=== PATIENT | male | born 1975 | race Caucasian/White ===

== ENCOUNTER 2024-03-24 20:38 | Emergency (ER) | payer BC, SELFPAY ==
[2024-03-24 20:44] VITALS: BP 180/93; PULSE 77; TEMP 36.9; O2SAT 97; BMI 48.8
--- NOTE | 2024-03-24 21:02 | ED_ITS ---
HPI - Chest Pain General Chief Complaint: Chest Pain Stated Complaint: CHEST PAIN Time Seen by Provider: 03/24/24 20:53 History of Present Illness HPI narrative: This 48-year-old male with a history of hypertension who is obese but does not have a personal history of cardiac disease presents for evaluation of 2 days of intermittent squeezing sensation in the left side of his chest. He initially thought it was gas but has taken several anti-gas preparations without significant improvement. He denies any radiation into his arm, back or jaw. He is not short of breath. He has not become dizzy or diaphoretic. He has no abdominal pain or back pain. He has no lower extremity pain or swelling. He does use a CPAP machine. He takes a daily baby aspirin. He has never had a cardiac workup or stress test. Related Data Home Medications ?Medication ?Instructions ?Recorded ?Confirmed lisinopril 20 tab 03/24/24 mg-hydrochlorothiazide 12.5 mg tablet nabumetone 750 mg tablet mg 03/24/24 Allergies Allergy/AdvReac Type Severity Reaction Status Date / Time shellfish derived Allergy Severe Anaphylaxis Verified 03/24/24 20:48 Penicillins AdvReac Mild Unknown Verified 03/24/24 20:48 Review of Systems ROS Status of ROS 10 or more systems reviewed and unremark able except as noted in history and below Exam Narrative Exam Narrative: Vital signs and Nursing Notes reviewed: Patient is afebrile with a normal pulse, blood pressure is elevated at 180/93, he is not hypoxic with pulse ox of 97% on room air General: Awake, alert, oriented, no acute distress, lying comfortably on the stretcher HEENT: Normocephalic atraumatic, mucous membranes are moist and pink, eyes are clear, normal conjunctiva, vision is grossly intact Neck: Supple, no JVD Chest: Lungs are clear to auscultation with good air entry, there is no wheezing rhonchi or rales appreciated no accessory muscle use, patient is speaking in complete sentences-no chest wall tenderness to palpation CVS: Regular rate and rhythm S1-S2, no murmurs rubs or gallops, pulses are brisk and equal bilaterally ABD: Soft, nondistended, nontender, no rebound guarding or rigidity, bowel sounds are normal, no pulsatile masses appreciated Extremities: Moving all extremities, no lower extremity tenderness or swelling noted, negative Homans' sign, pulses are brisk and equal bilaterally Skin: Normal in appearance without rash,pallor, petechiae or purpura Neuro: No focal deficits Constitutional Vital Signs, click to edit/add: Last Vital Signs Temp 98.4 F 03/24/24 20:44 Pulse 65 03/24/24 23:00 Resp 15 03/24/24 23:00 BP 131/81 03/24/24 23:00 Pulse Ox 96 03/24/24 23:00 O2 Del Method Room Air 03/24/24 20:44 Course Vital Signs Vital signs: Vital Signs Temperature 98.4 F 03/24/24 20:44 Pulse Rate 77 03/24/24 20:44 Respiratory Rate 18 03/24/24 20:44 Blood Pressure 180/93 H 03/24/24 20:44 Pulse Oximetry 97 03/24/24 20:44 Oxygen Delivery Method Room Air 03/24/24 20:44 Temperature 98.4 F 03/24/24 20:44 Pulse Rate 65 03/24/24 23:00 Respiratory Rate 15 03/24/24 23:00 Blood Pressure 131/81 03/24/24 23:00 Pulse Oximetry 96 03/24/24 23:00 Oxygen Delivery Method Room Air 03/24/24 20:44 MDM - Chest Pain MDM Narrative Medical decision making narrative: This 48-year-old male with a history of hypertension and sleep apnea who is also obese presents for evaluation of left-sided chest pain that has been present for the past several days. He describes it as a squeezing pain. It does not radiate. Is not associated with shortness of breath dizziness diaphoresis or any nausea or vomiting. His EKG done upon arrival was a normal sinus rhythm at 70 bpm. An IV was placed and he was given 243 mg of baby aspirin as he hide takes a daily baby aspirin every day. He was also given topical nitroglycerin. Lopressor was initially ordered but his blood pressure came down into the 150s and it was held. Cardiac work including CBC with differential comprehensive metabolic profile, troponin and D-dimer were ordered. He has a normal white count and hemoglobin. Electrolytes are normal with the mild elevation in his creatinine at 1.32. Troponin and delta troponin are both normal. D-dimer was elevated and CT angio of the chest was ordered to rule out pulmonary embolism. CTA of the chest is negative for acute findings but does show a fatty liver. The results of the scan were discussed with the patient and his . He feels comfortable being discharged home. I did offer to admit him for observation if he would feel better being admitted and getting a more thorough cardiac workup but he request to be discharged home and will follow-up with outpatient cardiology. He states that he monitors his health closely after having testicular cancer twice. He did not mention this previously but has follow-up in a month with his oncologist for a PET scan and further evaluation and treatment. This may be partially why he had an elevated D-dimer. He is not having any cancer related concerns at this time. Medical Records Data Medical records narrative: [place] [address] CT Scan Report Signed Patient: WANDA BOOKER MR#: [id number] : 1975 Acct:[id number] Age/Sex: 48 / M ADM Date: 03/24/24 Loc: ER Attending Dr: Ordering Physician: Phylicia Lima Date of Service: 03/24/24 Procedure(s): CT angio chest Accession Number(s): [id number] cc: Dimitry CRABTREE ~ [facility] [place] [address] Patient Name: WANDA BOOKER MRN: [id number] date: 1975 Sex: M Assigned Patient Location: ER Current Patient Location: ER Accession/Order Number: [id number] Exam Date: 03/24/2024 22:07 Report Date: 03/24/2024 23:18 At the request of: PHYLICIA LIMA Procedure: CT angio chest CT angio chest 03/24/2024 9:07 PM CDT: History: Left sided CP, + d dimer Chest pain. Possible pulmonary embolism. Comparison: None. Technique: IV Contrast enhanced CTA imaging of the chest. Sagittal and coronal MIP reformatted images are provided. This CT exam was performed using one or more of the following dose reduction techniques: Automated exposure control, adjustment of the mA and/or KV according to patient size, or use of iterative reconstruction technique. Findings: The central airway is midline and patent. There is bilateral dependent and bibasilar atelectasis. There is no pleural effusion or pneumothorax. The heart size is normal. There is no pericardial effusion. The pulmonary arteries are patent and normal in caliber. There is no pulmonary embolism. The thoracic aorta is patent and normal in caliber. There is diffuse hepatic steatosis. The bony thorax is intact without acute abnormality. There is degenerative disc disease of the thoracic spine. CT/CT angio chest Impression: 1. No acute cardiopulmonary process. No pulmonary embolism. 2. Hepatic steatosis. Electronically authenticated by: FLOR HARDY Date: 03/24/2024 23:18 Lab Data Labs: Lab Results 03/24/24 03/24/24 Range/Units 20:50 22:45 WBC 7.7 (4.0-11.0) 10^3/uL RBC 4.80 (4.70-6.10) 10^6/uL Hgb 14.4 (14.0-18.0) g/dL Hct 41.5 L (42.0-54.0) % MCV 86.5 (80.0-94.0) fL MCH 30.0 (25.9-34.0) pg MCHC 34.7 (29.9-35.2) g/dL RDW 12.5 (11.0-15.0) % Plt Count 229 (150-450) 10^3/uL MPV 10.0 (9.5-13.5) fL Neut % (Auto) 75.2 H (43.0-75.0) % Lymph % (Auto) 14.5 L (20.5-60.0) % Williamson % (Auto) 7.3 (1.7-12.0) % Eos % (Auto) 2.1 (0.9-7.0) % Baso % (Auto) 0.5 (0.2-2.0) % Neut # (Auto) 5.8 (1.4-6.5) 10^3/uL Lymph # (Auto) 1.1 L (1.2-3.8) 10^3/uL Williamson # (Auto) 0.6 (0.3-0.8) 10^3/uL Eos # (Auto) 0.2 (0.0-0.7) 10^3/uL Baso # (Auto) 0.0 (0.0-0.1) 10^3/uL Abs Immat Gran (auto) 0.03 (0.00-0.03) 10^3/uL Imm/Tot Granulo (auto) 0.4 (0.0-0.5) % D-Dimer 1.87 H* (<=0.59) mg/L FEU Sodium 136 (136-145) mmol/L Potassium 3.5 (3.5-5.1) mmol/L Chloride 98 (98-107) mmol/L Carbon Dioxide 24.9 (21.0-32.0) mmol/L Anion Gap 16.6 BUN 19.0 H (7.0-18.0) mg/dL Creatinine 1.32 H (0.70-1.30) mg/dL Est GFR ( Amer) >60 (>=60 mL/min/1.73m^2) Est GFR (Non-Af Amer) 58 L (>=60 mL/min/1.73m^2) BUN/Creatinine Ratio 14.4 Glucose 122 H (74-106) mg/dL Calcium 9.5 (8.5-10.1) mg/dL Total Bilirubin 0.4 (0.2-1.0) mg/dL AST 16 (15-37) U/L ALT 28 (16-63) U/L Alkaline Phosphatase 72 (46-116) U/L Troponin I High Sens 4.1 4.7 (4.0-76.1) pg/mL NT-Pro-B Natriuret Pep 113.0 (<=900.0) pg/mL Total Protein 7.4 (6.4-8.2) g/dL Albumin 3.7 (3.4-5.0) g/dL Globulin 3.7 g/dL Albumin/Globulin Ratio 1.0 ECG Data Attestation: I personally reviewed and interpreted this ECG as follows: (Sinus rhythm at 70 bpm, normal axis, nonspecific ST changes, no acute ST segment e levation or T wave inversion) Discharge Plan Discharge Chief Complaint: Chest Pain Clinical Impression: Non-cardiac chest pain, Elevated blood pressure reading Patient Disposition: Home, Self-Care Time of Disposition Decision: 23:31 Condition: Good Prescriptions / Home Meds: No Action nabumetone 750 mg tablet lisinopril-hydrochlorothiazide 20-12.5 mg tablet Print Language: Egyptian Instructions: Noncardiac Chest Pain (ED) Referrals: Dimitry CRABTREE [Primary Care Provider] - 1 week Mohit Siegel MD [Physician] - 1 week
[2024-03-24 21:17] LABS: Basophils Percent Auto 0.5 % (0.2-2.0); Eosinophils Absolute Auto 0.2 10^3/uL (0.0-0.7); Eosinophils Percent Auto 2.1 % (0.9-7.0); Hematocrit 41.5 % (42.0-54.0); Hemoglobin 14.4 g/dL (14.0-18.0); Immature Granulocytes Abs Auto 0.03 10^3/uL (0.00-0.03); Immature Granulocytes Pct Auto 0.4 % (0.0-0.5); Lymphocytes Absolute Auto 1.1 10^3/uL (1.2-3.8); Lymphocytes Percent Auto 14.5 % (20.5-60.0); Mean Corpuscular HGB Conc 34.7 g/dL (29.9-35.2); Mean Corpuscular Volume 86.5 fL (80.0-94.0); Monocytes Absolute Auto 0.6 10^3/uL (0.3-0.8); Monocytes Percent Auto 7.3 % (1.7-12.0); Neutrophils Absolute Auto 5.8 10^3/uL (1.4-6.5); Neutrophils Percent Auto 75.2 % (43.0-75.0); Platelet Count 229 10^3/uL (150-450); Red Cell Distribution Width 12.5 % (11.0-15.0); White Blood Count 7.7 10^3/uL (4.0-11.0)
[2024-03-24] MEDS: NITROGLYCERIN 2% 1 GRAM PACKET 1 GM TD (21:20)
[2024-03-24] MEDS: ASPIRIN 81 MG TAB.CHEW 243 MG PO (21:20)
[2024-03-24 21:30] LABS: Alanine Aminotransferase 28 U/L (16-63); Albumin Level 3.7 g/dL (3.4-5.0); Alkaline Phosphatase 72 U/L (46-116); Anion Gap 16.6; Aspartate Amino Transferase 16 U/L (15-37); BUN Creatinine Ratio 14.4; Bilirubin Total 0.4 mg/dL (0.2-1.0); Calcium 9.5 mg/dL (8.5-10.1); Carbon Dioxide 24.9 mmol/L (21.0-32.0); Chloride 98 mmol/L (98-107); Estimated GFR (African America >60 (>=60 mL/min/1.73m^2); Estimated GFR (Non-African Ame 58 (>=60 mL/min/1.73m^2); Globulin 3.7 g/dL; Glucose 122 mg/dL (74-106); Potassium 3.5 mmol/L (3.5-5.1); Sodium 136 mmol/L (136-145); Total Protein 7.4 g/dL (6.4-8.2)
[2024-03-24 21:36] LABS: Troponin I High Sensitivity 4.1 pg/mL (4.0-76.1)
[2024-03-24 21:37] LABS: D Dimer 1.87 mg/L FEU (<=0.59)
--- NOTE | 2024-03-24 21:45 | CT_ITS ---
The [address] [address] Patient Name: WANDA BOOKER MRN: [id number] date: 1975 Sex: M Assigned Patient Location: ER Current Patient Location: Accession/Order Number: [id number] Exam Date: 03/24/2024 22:07 Report Date: 03/24/2024 23:18 At the request of: PINEDA NAPOLES Procedure: CT angio chest CT angio chest 03/24/2024 9:07 PM CDT: History: Left sided CP, + d dimer Chest pain. Possible pulmonary embolism. Comparison: None. Technique: IV Contrast enhanced CTA imaging of the chest. Sagittal and coronal MIP reformatted images are provided. This CT exam was performed using one or more of the following dose reduction techniques: Automated exposure control, adjustment of the mA and/or KV according to patient size, or use of iterative reconstruction technique. Findings: The central airway is midline and patent. There is bilateral dependent and bibasilar atelectasis. There is no pleural effusion or pneumothorax. The heart size is normal. There is no pericardial effusion. The pulmonary arteries are patent and normal in caliber. There is no pulmonary embolism. The thoracic aorta is patent and normal in caliber. There is diffuse hepatic steatosis. The bony thorax is intact without acute abnormality. There is degenerative disc disease of the thoracic spine. CT/CT angio chest Impression: 1. No acute cardiopulmonary process. No pulmonary embolism. 2. Hepatic steatosis. Electronically authenticated by: FLOR HARDY Date: 03/24/2024 23:18
[2024-03-24 21:53] VITALS: BP 148/94; PULSE 70; O2SAT 97
[2024-03-24 22:19] VITALS: BP 160/99; PULSE 69; O2SAT 96
[2024-03-24 23:00] VITALS: BP 131/81; PULSE 65; O2SAT 96
[2024-03-24 23:08] LABS: Troponin I High Sensitivity 4.7 pg/mL (4.0-76.1)
--- NOTE | 2024-03-24 23:30 | ECG_ITS ---
The [facility] Test Date: 2024-03-24 Pat Name: WANDA BOOKER Department: Room: - Gender: Male [employer]: : 1975 Requested By: [id number] Order Number: [id number] Reading MD: TOMASZ YE Measurements Intervals [place] Rate: 71 P: 35 UT: 140 QRS: 46 QRSD: 100 T: 21 QT: 406 QTc: 429 Interpretive Statements 1100 Sinus rhythm 9150 abnormal ECG Electronically Signed On 03-25-2024 6:47:39 EDT by TOMASZ YE
[2024-03-24 23:37] VITALS: BP 129/88; PULSE 63; O2SAT 95
== END 2024-03-24 23:44 | disposition home or self-care (01) ==
PROVIDERS: Emergency Provider Emergency Medicine; PCP Family Medicine
DX: R07.89 Other chest pain (principal); I10 Essential (primary) hypertension; E66.9 Obesity, unspecified; Z79.82 Long term (current) use of aspirin
CPT/HCPCS: 36415; 71275; 80053; 83880; 84484; 85025; 85378; 93005; 99285; Q9967

== ENCOUNTER 2024-05-12 00:15 | Emergency (ER) | payer BC, SELFPAY ==
[2024-05-12 00:22] VITALS: BP 164/96; PULSE 74; TEMP 36.7; O2SAT 94; BMI 48.8
--- OUTSIDE RECORDS SUMMARY | 2024-05-12 00:34 | XMS_ITS | CCD ---
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 [employer] Handicapped Name Role Phone DEBBIE, DR CORNEJO Admitting Unavailable DEBBIE, DR CORNEJO Attending Unavailable LAST, DR Dimitry RAY Referring Unavailable LAST, DR Dimitry RAY Primary Care Unavailable DEBBIE, DR CORNEJO Consulting Unavailable LAKESHIA, DR KRYS Orta Consulting Unavailable DEBBIE, DR CORNEJO Admitting Unavailable DEBBIE, DR CORNEJO Attending Unavailable KASHERRON, DR Dimitry RAY Primary Care Unavailable DEBBIE, DR CORNEJO Consulting Unavailable VIVI PARKS Consulting Unavailable MCCMICHAEL JULIAN Consulting Unavailable LAST, DR Dimitry RAY Primary Care Unavailable KWASI LARA Admitting Unavailable KWASI LARA Attending Unavailable EVELYN CUEVAS Consulting Unavailable KWASI LARA Consulting Unavailable Ashli Ni Jr. Primary Care Provider Debbie DELUCA, Chantal R Unavailable Dimitry NI Primary Care Physician Pravin Cantu Unavailable DO Caity Ni Primary Care Provider DO Caity Ni Referring Provider [phone] MD Krys Allen Attending Provider [phone] Ashli Ni Jr. Primary Care Provider Chantal Lewis MD R Unavailable DO Caity Ni Primary Care Provider DO Caity Ni Referring Provider [phone] MD Krys Allen Attending Provider Krys Allen Unavailable Ashli Ni Jr. Primary Care Provider Chantal Lewis MD R Unavailable Last Wan DO, George Robert Primary Care Provi jarod DO Caity Ni Cj Primary Care Provider MD Krys Allen Attending Provider [phone] Cathi Storey Unavailable Unavailable Caity Ni Primary Care Unavailable Krys Allen Attending Unavailable Krys Allen Admitting Unavailable Tjsherron Wan, Ashli [facility] jar[facility] Chantal Lewis MD Unavailable YEHUDA HOROWITZ Attending Unavailable ASHLI NI Attending Unavailable Ashli Ni DO Primary Care Provider Chantal LEWIS Attending Unavailable Chantal LEWIS Attending Unavailable [facility] Care Unavail able Dimitry JASSO Referring Unavailable [facility] JORDAN PETERS Referring Unavailable LAST [facility] Care Unavail able Dimitry JASSO Attending Unavailable Dimitry JASSO Referring Unavailable [facility] Care Unavail able LATS , [facility] Care Unavail able Dimitry JASSO Referring Unavailable JORDAN PETERS Referring Unavailable [facility] Care Unavail able JORDAN PETERS Referring Unavailable [facility] Care Unavail able JORDAN PETERS Attending Unavailable LAST [facility] Care Unavail able SELF Referring Unavailable JORDAN PETERS Referring Unavailable LAST [facility] Care Unavail able LAST [facility] Care Unavail able Dimitry JASSO Referring Unavailable [facility] Care Unavail able ROSET[place] GAN Referring Unavailable [facility] Care Unavail able LAST [facility] Care Unavail able ARIES SANCHEZ Referring Unavailable [facility] Care Unavail able LAST [facility] Care Unavail able Dimitry JASSO Attending Unavailable JORDAN PETERS Attending Unavailable [place] GAN Referring Unavailable [facility] Care Unavail able JORDAN PETERS Referring Unavailable [facility] Care Unavail able [facility] Care Unavail able Dimitry JASSO Referring Unavailable Dimitry JASSO Attending Unavailable KAAN , ASHLI RAY Primary Care Unavail able JORDAN PETERS Attending Unavailable JORDAN PETERS Referring Unavailable [facility], ASHLI RAY Primary Care Unavail able KAAN , ASHLI RAY Primary Care Unavail able ENGELERDimitry Attending Unavailable KAAN , ASHLI RAY Primary Care Unavail able ENGELER, G THIERNO Referring Unavailable KAAN , ASHLI RAY Primary Care Unavail able ENGELERDimitry Attending Unavailable KAAN , ASHLI RAY Primary Care Unavail able ENGELER G THIERNO Attending Unavailable ENGELER, G THIERNO Referring Unavailable KAAN , ASHLI RAY Primary Care Unavail able ENGELER, G THIERNO Referring Unavailable KAAN , ASHIL RAY Primary Care Unavail able ENGELER, G THIERNO Referring Unavailable KAAN , ASHLI RAY [facility] Care Unavail able ENGELER, G THIERNO Referring Unavailable TJAN , ASHLI RAY [facility] Care Unavail able ENGELER, G THIERNO Referring [facility]available [facility] ASHLI RAY Primary Care Unavail able KAAN , ASHLI RAY Primary Care Unavail able KAVANIAAN , ASHLI RAY [facility] Care Unavail able ENGELER, G THIERNO Referring Unavailable KAAN , ASHLI RAY [facility] Care Unavail able ENGELER, G THIERNO Referring Unavailable KAAN , ASHLI RAY [facility] Care Unavail able ASHARDimitry Attending Unavailable ENGELER G THIERNO Attending Unavailable ENGELER, G THIERNO Referring Unavailable TJAN , ASHLI RAY [facility] Care Unavail able ENGELER G THIERNO Attending Unavailable KAAN , ASHLI RAY [facility] Care Unavail able ENGELER G THIERNO Attending Unavailable ENGELER, G THIERNO Referring Unavailable KAAN [facility] ASHLI RAY Primary Care Unavail able Allergies Allergy Classification Reported Allergen(s) Allergy Type Date of Onset Reaction(s) Facility (1 source) Penicillin Drug Allergy [facility] (3 sources) Shellfish; Translations: [shellfish] Drug allergy (disorder) Unknown (qualifier value) [facility] (2 sources) Penicillins; Translations: [PENICILLINS] Drug Allergy 2 Rash [facility] (20 sources) Shellfish; Translations: [shellfish] Drug Allergy 2 Other: See Comments, Unknown (qualifier value) [facility] (20 sources) Penicillins Drug Allergy 2 Rash [facility] (4 sources) Shellfish; Translations: [shellfish derived] Allergy to substance 1 Swelling of Lip/Tongue/Thro at [facility] (2 sources) Amoxicillin Drug Allergy 3 Rash [facility] Healthcare Work Phone: (2 sources) Shellfish Allergy to substance 2 Unknown [facility] Healthcare (2 sources) Shellfish-Deriv ed Products Drug Allergy 3 Unknown [facility] Healthcare Medications Current Medications Medication Drug Class(es) Dates Sig (Normalized) Sig (Original) 24 hr alfuzosin hydrochloride 10 mg extended release oral tablet (1 source) alpha-Adrenergic Gadiel Start: 03-23-2024 take 1 tablet by mouth once daily alfuzosin 10 mg ER Tab 10 mg = 1 tab(s), Oral, Daily, # 30 tab(s), Refills(s) 11, Pharmacy: [facility] #[id number], 180, cm, 03/23/24 10:12:00 EDT, Height/Length Dosing, 157, kg, 03/23/24 10:12:00 EDT, Weight Dosing Start Date: 03/23/24 Status: Ordered aspirin 81 mg oral tablet (6 sources) Platelet Aggregation Inhibitor, Nonsteroidal Anti-inflammatory Drug take 1 capsule by mouth in the morning aspirin (Vazalore) 81 MG capsule Take 81 mg by mouth in the morning. Active Cranberry preparation (2 sources) Non-Standardized Food Allergenic Extract, Non-Standardized Plant Allergenic Extract Start: 08-09-2021 cranberry oral capsule See Instructions Start Date: 08/09/21 Status: Ordered hydroCHLOROthiazide 12.5 mg / lisinopril 20 mg oral tablet (20 sources) Thiazide Diuretic, Angiotensin Converting Enzyme Inhibitor Start: 03-23-2024 take 1 tablet by mouth once daily hydrochlorothiazi de-lisinopril 12.5 mg-20 mg Tab 1 tab(s), Oral, Daily Start Date: 03/23/24 Status: Ordered Start: 05-29-2023 take 2 tablets by mouth in the morning lisinopril-hydroCHLOROthiazide 20-12.5 M G tablet Indications: Primary hypertension (CMS/HCC) Take 2 tablets by mouth in the morning. 180 tablet 3 05/29/2023 Active Start: 05-11-2023 take 2 tablets by mouth once lisinopril-hydroCHLOROthiazide (ZESTORET IC) 20-12.5 mg per tablet Take 2 tablets by mouth every afternoon. 05/11/2023 Active Comment on above: Take 2 tablets by mo [facility] every afternoon. Multi Vitamin+ (2 sources) Start: 08-02-2021 Multi Vitamin+ Refill(s) 0 Start Date: 08/02/21 Status: Ordered multivit-min/ferrous fumarate (MULTI VITAMIN ORAL) (20 sources) Start: 08-02-2021 multivit-min/ferrous fumarate (MULTI VITAMIN ORAL) Refill(s) 0 08/02/2021 Active Start: 08-02-2021 multivit-min/f errous fumarate (MULTI VITAMIN ORAL) Refill(s) 0 0 08/02/2021 Active Comment on above: Refill(s) 0 Multivitamin preparation (2 sources) take 1 tablet by mouth once daily Multivitamin - 1 tablet Orally Once a day Active nabumetone 750 mg oral tablet (6 sources) Nonsteroidal Anti-inflammatory Drug Start: 05-04-20 take 1 tablet by mouth at mealtime nabumetone (Relafen) 750 MG tablet Indications: Acute right ankle pain TAKE 1 TABLET(750 MG) BY MOUTH IN THE MORNING AND IN THE EVENING WITH MEALS 60 tablet 05/04/2024 Active Start: 03-23-2024 take 2 tablets by [facility] once daily nabumetone 750 mg Tab 1,500 mg = 2 tab(s), Oral, Daily Start Date: 03/23/24 Status: Ordered take 500 mg by mouth twice daily NABUMETONE ORAL Take 500 mg by mouth two times a day. Active omeprazole 20 mg delayed release oral tablet (20 sources) Proton Pump Inhibitor Start: 08-02-2021 Omeprazo le 20 mg TbEC Take by mouth. 08/02/2021 Active Start: 08-02-2021 Prilosec Oral, Daily, Refills(s) 0 Start Date: 08/02/21 Status: Ordered Start: 03-19-2021 Omeprazole Act cristóbal MG PO March 19, 2021 9:52am Start: 03-19-2021 Omeprazole Act cristóbal MG PO March 18, 2021 11:00pm Start: 03-19-2021 Omeprazole Act cristóbal MG PO March 19, 2021 12:00am Start: 06-08-2018 End: 05-27-2019 take 20 mg by mouth once daily Omeprazole Discontinued 20 MG PO Daily June 08, 2018 12:32pm May 27, 2019 4:36am Comment on above: Take by mouth. ondansetron 8 mg oral tablet (20 sources) Serotonin-3 Receptor Antagonist Start: take 1 tablet by mouth every eight hours as needed ondansetron (ZOFRAN) 8 mg tablet Take 1 tablet by mouth every 8 hours as needed for nausea/vomiting. 30 tablet 2 07/25/2023 Active Start: 07-08-2023 End: 07-25-2023 take 1 tablet by mouth every eight hours as needed ondansetron orally disintegrating (ZOFRAN ODT) 8 mg disintegrating tablet Take 1 tablet by mouth every 8 hours as needed for nausea/vomiting. 20 tablet 1 07/08/2023 07/25/2023 Discontinued Start: 07-05-2023 End: 07-25-2023 take 1 tablet by mouth once daily as needed for nausea ondansetron (ZOFRAN) 8 mg tablet Take 1 tablet by mouth once daily as needed for nausea/vomiting. 20 tablet 1 07/05/2023 07/25/2023 Discontinued Start: 07-05-2023 End: 07-05-2023 take 1 tablet by mouth every eight hours as needed ondansetron 8 mg tab(s) (ZOFRAN) Comment on above: Take 1 tablet by kieran th once daily as needed for nausea/vomiting. Take 1 tablet by kieran th every 8 hours as needed for nausea/vomiting. traZODone hydrochloride 50 mg oral tablet (20 sources) Serotonin Reuptake Inhibitor Start: 03-23-2024 traZODone (Desyrel) 50 MG tablet Indications: Insomnia, unspecified type Take 1 tablet (50 mg) by mouth as needed at bedtime for sleep 30 tablet 3 03/23/2024 Active Start: 10-23-2022 End: 03-23-2024 take 1 tablet by mouth every twenty-four hours as needed traZODone (DESYREL) 50 mg tablet Take 50 mg by mouth at bedtime as needed. 10/23/2022 Active Comment on above: Take 50 mg by mouth at bedtime as needed. Zinc (20 sources) Start: 08-02-2021 Zinc 50 mg tab Take by mouth. 08/02/2021 Active Start: 08-02-2021 Zinc 50 mg tab Take by mouth. 0 08/02/2021 Active Start: 08-02-2021 take 1 mg by mouth once daily Zinc mg, Oral, Daily, Refills(s) 0 Start Date: 08/02/21 Status: Ordered Comment on above: Take by mouth. Completed/Discontinued Medications Medication Drug Class(es) Dates Sig (Normalized) Sig (Original) acetaminophen 325 mg / HYDROcodone bitartrate 5 mg oral tablet (3 sources) Opioid Agonist Start: 06-08-2018 End: 05-27-2019 take 1 tablet by mouth every four to six hours Hydrocodone-Acetamin ophen (Palmer) 5-325 mg tablet Discontinued 1 TAB PO EVERY 4-6 HOURS 10 June 08, 2018 May 27, 2019 3:36am amoxicillin 500 mg oral capsule (3 sources) Penicillin-class Antibacterial Start: 05-27-2019 End: 03-19-2021 take 1 mg by mouth four times daily Amoxicillin Discontinued MG PO Four times daily May 27, 2019 12:00am March 19, 2021 8:51am azithromycin 250 mg oral tablet (3 sources) Macrolide Antimicrobial Start: 05-27-2019 End: 03-19-2021 take 2-5 tablets by mouth once daily Azithromycin (Zithromax Z-Rashi) 250 mg Tablet Discontinued 1 dose pk PO as directed on dose pack May 27, 2019 12:00am March 19, 2021 8:51am take 500 mg today (day 1), then 250 mg for 4 days (days 2-5) cyclobenzaprine hydrochloride 10 mg oral tablet (3 sources) Muscle Relaxant Start: 06-08-2018 End: 05-27-2019 take 10 mg by mouth three times daily Cyclobenzaprine Discontinued 10 MG PO Three times daily June 08, 2018 12:00am May 27, 2019 3:36am diphenhydrAMINE hydrochloride 25 mg oral capsule (3 sources) Histamine-1 Receptor Antagonist Start: 05-27-2019 End: 03-19-2021 take 1 capsule by mouth every four hours Diphenhydramine Hcl (Benadryl) 25 mg Capsule Discontinued 25 MG PO Q4H May 27, 2019 12:00am March 19, 2021 8:51am enteric contrast (will be provided with radiology test) (4 sources) Start: 10-28-2023 End: 10-29-2023 enteric contrast (will be provided with radiology test) Indications: Malignant neoplasm of testicle, unspecified laterality, unspecified whether descended or undescended (HCC) For CT ABD/PEL W IVCON Routine order Administer, As Directed One Time Only, via Oral, Rectal, both Oral and Rectal, Enteric Tube, Stoma or Indwelling Catheter, Enteric Contrast as designated per enteric contrast guidelines 1 Each 0 10/28/2023 10/29/2023 Start: 02-14-2023 End: 02-15-2023 enteric contrast (will be pr ovided with radiology test) For CT CHESTABD/PEL W IVCON Routine order Administer, As Directed One Time Only, via Oral, Rectal, both Oral and Rectal, Enteric Tube, Stoma or Indwelling Catheter, Enteric Contrast as designated per enteric contrast guidelines 1 Each 0 02/14/2023 02/15/2023 Active Start: 07-09-2022 End: 07-10-2022 enteric contrast (will be pr ovided with radiology test) For CT CHESTABD/PEL W IVCON Routine order Administer, As Directed One Time Only, via Oral, Rectal, both Oral and Rectal, Enteric Tube, Stoma or Indwelling Catheter, Enteric Contrast as designated per enteric contrast guidelines 1 Each 0 07/09/2022 07/10/2022 Start: 12-26-2021 End: 12-27-2021 enteric contrast (will be pr ovided with radiology test) For CT CHESTABD/PEL W IVCON Routine order Administer, As Directed One Time Only, via Oral, Rectal, both Oral and Rectal, Enteric Tube, Stoma or Indwelling Catheter, Enteric Contrast as designated per enteric contrast guidelines 1 Each 0 12/26/2021 12/27/2021 Active Comment on above: For CT CHESTABD/PEL W IVCON Routine order Administer, As Directed One Time Only, via Oral, Rectal, both Oral and Rectal, Enteric Tube, Stoma or Indwelling Catheter, Enteric Contrast as designated per enteric contrast guidelines iv contrast (will be provided with radiology test) (5 sources) Start: 10-28-2023 End: 10-29-2023 iv contrast (will be provided with radiology test) Indications: Malignant neoplasm of testicle, unspecified laterality, unspecified whether descended or undescended (HCC) CT Chest W -Inject, intravenously, once for 1 dose.No IV access, insert saline lock prior to the beginning of sedation, infusion, injection of imaging exam. Discontinue saline lock post exam. If Pt. has a central line or IVAD, may access for administration according to line specific nursing protocol. Once exam is complete flush line and de-access according to line specific nursing protocol in the CT contrast administration guidelines link. 1 Each 0 10/28/2023 10/29/2023 Start: 10-28-2023 End: 10-29-2023 iv contrast (will be provide d with radiology test) Indications: Malignant neoplasm of testicle, unspecified laterality, unspecified whether descended or undescended (HCC) CT ABD/PEL -Inject, intravenously, once for 1 dose.No IV access, insert saline lock prior to the beginning of sedation, infusion, injection of imaging exam. Discontinue saline lock post exam. If Pt. has a central line or IVAD, may access for administration according to line specific nursing protocol. Once exam is complete flush line and de-access according to line specific nursing protocol in the CT contrast administration guidelines link. 1 Each 0 10/28/2023 10/29/2023 Start: 02-14-2023 End: 02-15-2023 iv contrast (will be provide d with radiology test) CT Chest ABD/PEL-Inject, intravenously, once for 1 dose.No IV access, insert saline lock prior to the beginning of sedation, infusion, injection of imaging exam. Discontinue saline lock post exam. If Pt. has a central line or IVAD, may access for administration according to line specific nursing protocol. Once exam is complete flush line and de-access according to line specific nursing protocol in the CT contrast administration guidelines link. 1 Each 0 02/14/2023 02/15/2023 Active Start: 07-09-2022 End: 07-10-2022 iv contrast (will be provide d with radiology test) CT Chest ABD/PEL-Inject, intravenously, once for 1 dose.No IV access, insert saline lock prior to the beginning of sedation, infusion, injection of imaging exam. Discontinue saline lock post exam. If Pt. has a central line or IVAD, may access for administration according to line specific nursing protocol. Once exam is complete flush line and de-access according to line specific nursing protocol in the CT contrast administration guidelines link. 1 Each 0 07/09/2022 07/10/2022 Start: 12-26-2021 End: 12-27-2021 iv contrast (will be provide d with radiology test) CT Chest ABD/PEL-Inject, intravenously, once for 1 dose.No IV access, insert saline lock prior to the beginning of sedation, infusion, injection of imaging exam. Discontinue saline lock post exam. If Pt. has a central line or IVAD, may access for administration according to line specific nursing protocol. Once exam is complete flush line and de-access according to line specific nursing protocol in the CT contrast administration guidelines link. 1 Each 0 12/26/2021 12/27/2021 Active Comment on above: CT Chest ABD/PEL-Inj ect, intravenously, once for 1 dose.No IV access, insert saline lock prior to the beginning of sedation, infusion, injection of imaging exam. Discontinue saline lock post exam. If Pt. has a central line or IVAD, may access for administration according to line specific nursing protocol. Once exam is complete flush line and de-access according to line specific nursing protocol in the CT contrast administration guidelines link. lisinopril 20 mg oral tablet (19 sources) Angiotensin Converting Enzyme Inhibitor Start: 08-16-19 End: 05-23-20 take 1 tablet by mouth once daily lisinopril (ZESTRIL, PRINIVIL) 20 mg tablet Take 20 mg by mouth once daily. 08/15/2021 05/23/2023 Discontinued (Changing Therapy/Dosage Form) Start: 06-07-2021 lisinopril Ora l, Daily, Refills(s) 0 Start Date: 06/07/21 Status: Ordered Start: 03-19-2021 Lisinopril Act cristóbal MG TABLET March 18, 2021 11:00pm take 1 tablet by kieran th every twenty-four hours Lisinopril 10 MG 1 tablet Orally Once a day Active Comment on above: Take 20 mg by mouth once daily. predniSONE 10 mg oral tablet (6 sources) Start: 05-27-2019 End: 03-19-2021 take 60 mg by mouth once daily at mealtime Prednisone Discontinued 60 MG PO Daily May 27, 2019 12:00am March 19, 2021 8:51am administer with food or milk Start: 06-08-2018 End: 05-27-2019 take 50 mg by mouth once daily at mealtime Prednisone Discontinued 50 MG PO Daily 10 19June 08, 2018 12:00am May 27, 2019 3:36am administer with food or milk Triamcinolone (2 sources) Corticosteroid Start: 03-21-2021 Kenalog -40 mg Mar, 40 mg Problems Active Problems Problem Classification Problem Date Documented Date Episodic/Chronic Allergic reactions (3 sources) Allergic reaction to drug; Translations: [Allergy, unspecified, initial encounter] 05-27-2019 Episodic Cancer of testis (20 sources) Malignant neoplasm of right testis, unspecified whether descended or undescended; 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] Onset: 08-08-2021 Chronic Esophageal disorders (5 sources) Gastroesophageal reflux disease without esophagitis; Translations: [Gastro-esophageal reflux disease without esophagitis] Onset: 02-28-2023 02-28-2023 Chronic Essential hypertension (12 sources) Essential (primary) hypertension; Translations: [Elevated blood pressure] Onset: 08-08-2021 Chronic Hyperplasia of prostate (7 sources) Benign prostatic hyperplasia without lower urinary tract symptoms; Translations: [Benign prostatic hypertrophy without outflow obstruction] Onset: 08-08-2021 Chronic Nonspecific chest pain (1 source) Chest pain, unspecified; Translations: [CHEST PAIN UNSPECIFIED] Onset: 08-21-2021 Episodic Other aftercare (1 source) Other alf (current) drug therapy; Translations: [[employer] CURRENT DRUG THERAPY] Onset: 08-21-2021 Episodic Other lower respiratory disease (3 sources) Dyspnea, unspecified; Translations: [DYSPNEA UNSPECIFIED] Onset: 08-17-2021 Episodic Other male genital disorders (4 sources) Disorder of male genital organs, unspecified; Translations: [DISORDER MALE GENITAL ORGANS UNS] Onset: 08-03-2021 Episodic Other non-traumatic joint disorders (1 source) Acute ankle pain; Translations: [Pain in right ankle and joints of right foot] 05-04-2024 Episodic Other nutritional; endocrine; and metabolic disorders (1 source) Obesity, unspecified; Translations: [OBESITY UNSPECIFIED] Onset: 08-21-2021 Chronic Other nutritional; endocrine; and metabolic disorders (1 source) Body mass index (BMI) 40.0-44.9, adult; Translations: [BODY MASS INDEX BMI 40.0-44.9 ADULT] Onset: 08-21-2021 Chronic Other nutritional; endocrine; and metabolic disorders (2 sources) Body mass index 40+ - severely obese; Translations: [Body mass index (BMI) 45.0-49.9, adult] Chronic Other nutritional; endocrine; and metabolic disorders (2 sources) Body mass index (BMI) 45.0-49.9, adult Chronic Other screening for suspected conditions (not mental disorders or infectious disease) (1 source) Encounter for screening for malignant neoplasm of prostate; Translations: [Screening for malignant neoplasm done] Onset: 03-23-2024 Episodic Pneumonia (except that caused by tuberculosis or sexually transmitted disease) (1 source) Pneumonia, unspecified organism; Translations: [PNEUMONIA UNSPECIFIED ORGANISM] Onset: 08-21-2021 Episodic Residual codes; unclassified (7 sources) Obstructive sleep apnea syndrome; Translations: [Obstructive sleep apnea (adult) (pediatric)] Onset: 02-28-2023 02-28-2023 Chronic Residual codes; unclassified (2 sources) Idiopathic sleep related non-obstructive alveolar hypoventilation; Translations: [Idiopathic sleep related nonobstructive alveolar hypoventilation] Chronic Residual codes; unclassified (2 sources) Sleep apnea; Translations: [Sleep apnea, unspecified] Chronic Residual codes; unclassified (2 sources) Obstructive sleep apnea (adult) (pediatric) Chronic Residual codes; unclassified (1 source) Idiopathic sleep related nonobstructive alveolar hypoventilation Chronic Residual codes; unclassified (1 source) Obstructive sleep apnea (adult)(pediatric); Translations: [Obstructive sleep apnea (adult) (pediatric)] Onset: 06-20-2023 Chronic Sprains and strains (3 sources) Shoulder strain; Translations: [Strain of unspecified muscle, fascia and tendon at shoulder and upper arm level, unspecified arm, initial encounter] 03-19-2021 Episodic Unclassified (1 source) CONTACT W/AND (SUSP) EXPOS COVID-19; Translations: [CONTACT W/AND (SUSP) EXPOS COVID-19] Onset: 08-04-2021 Unclassified (2 sources) Asymptomatic microscopic hematuria 06-07-2021 Unclassified (1 source) Patient encounter status 03-23-2024 Past or Other Problems Problem Classification Problem Date Documented Da te Episodic/Chronic Genitourinary symptoms and ill-defined conditions (11 sources) Nocturia; Translations: [Asymptomatic microscopic hematuria] Onset: 08-04-2021 Episodic Other connective tissue disease (2 sources) Other enthesopathies, not elsewhere classified; Translations: [Right shoulder tendonitis M77.8] Onset: 03-21-2021 Resolved: 04-25-2021 Episodic Other male genital disorders (4 sources) Mass of epididymis; Translations: [Other specified disorders of the male genital organs] Onset: 03-05-2023 06-07-2021 Episodic Other male genital disorders (6 sources) Testicular mass; Translations: [Other specified disorders of the male genital organs] Onset: 03-05-2023 06-07-2021 Episodic Other non-traumatic joint disorders (1 source) Pain in right shoulder; Translations: [Acute pain of right shoulder M25.511] Onset: 03-21-2021 Resolved: 03-21-2021 Episodic Residual codes; unclassified (3 sources) Insomnia; Translations: [Insomnia, unspecified] Onset: 02-28-2023 03-23-2024 Episodic Results Test Name Value Interpretation Reference Range Facility CT ABD/PEL W IVCONon 024 CT ABD/PEL W IVCON * * *Final Report* * * DATE OF EXAM: May 06 2024 1:07PM [facility]30 - CT ABD/PEL W IVCON / PROCEDURE REASON: Malignant neoplasm of testicle, unspecified laterality, unspecified whether desc * * * * Physician Interpretation * * * * RESULT: EXAMINATION: CT ABDOMEN AND PELVIS WITH IV CONTRAST PATIENT/TECHNOLOGIST PROVIDED HISTORY: CLINICAL INFORMATION ( PROVIDED BY ORDERING CLINICIAN) : Malignant neoplasm of testicle, unspecified laterality, unspecified whether descended or undescended (HCC) TECHNIQUE: CT of the abdomen and pelvis was performed using standard technique, scanning from just above the dome of the diaphragm to the pubic symphysis. . Contrast: IV: 100 ml of Omnipaque 350 Oral: 500 ml of Omni 240 10-25ml diluted with water CT Radiation dose: Integrated Dose-length product (DLP) for this visit = 2133 mGy*cm. CT Dose Reduction Employed: Automated exposure control (AEC) COMPARISON: PET CT 10/15/[address] abdomen pelvis 05/17/2023 Abdomen / Pelvis: Liver: No focal hepatic lesions. Spleen: No focal splenic lesion. Pancreas: No focal pancreatic lesions. Adrenals: No mass. Biliary: No bile duct dilation. No gallbladder wall thickening. Kidneys: Symmetric nephrograms bilaterally without hydronephrosis. Vasculature: The celiac axis and SMA are patent. The portal vein and branches, splenic vein, SMV, and hepatic veins are patent. Abdominal aorta is normal in caliber. GI tract: No bowel obstruction. Normal appendix. Lymph nodes: Unchanged 1.1 cm left external node which was not PET avid. No new adenopathy. Mesentery/Peritoneum: No ascites, fluid collection, or mass. Pelvis: No mass or fluid collection. Urinary bladder is unremarkable. Bones/Soft tissues: No aggressive osseous lesions. Lower thorax: Dedicated CT imaging of the chest was performed concurrently and is dictated separately. Engine Oiler (topogram) images: Unremarkable. IMPRESSION: No metastatic disease in the abdomen or pelvis. Transcribe Date/Time: May 06 2024 2:53P Dictated by: PATY FARRELL MD This examination was interpreted and the report reviewed and electronically signed by: PATY FARRELL MD on May 06 2024 3:00PM EST Thank you for allowing us to participate in the care of your patient. Should there be any questions regarding this interpretation, please call [phone]. If you are unable to reach us at the number above, please feel free to contact [facility] at [phone]. [id number] Normal [facility] CT Abdomen and Pelvis W cont rast Tammi 05-06-2024 IMPRESSION: No metastatic disease in the abdomen or pelvis. Transcribe Date/Time: May 06 2024 2:53P Dictated by: PATY FARRELL MD This examination was interpreted and the report reviewed and electronically signed by: PATY FARRELL MD on May 06 2024 3:00PM EST Thank you for allowing us to participate in the care of your patient. Should there be any questions regarding this interpretation, please call [phone]. If you are unable to reach us at the number above, please feel free to contact [facility] at [phone]. DIVISION OF RADIOLOGY * * *Final Report* * * DATE OF EXAM: May 06 2024 1:07PM [facility]30 - CT ABD/PEL W IVCON / PROCEDURE REASON: Malignant neoplasm of testicle, unspecified laterality, unspecified whether desc * * * * Physician Interpretation * * * * RESULT: EXAMINATION: CT ABDOMEN AND PELVIS WITH IV CONTRAST PATIENT/TECHNOLOGIST PROVIDED HISTORY: CLINICAL INFORMATION ( PROVIDED BY ORDERING CLINICIAN) : Malignant neoplasm of testicle, unspecified laterality, unspecified whether descended or undescended (HCC) TECHNIQUE: CT of the abdomen and pelvis was performed using standard technique, scanning from just above the dome of the diaphragm to the pubic symphysis. . Contrast: IV: 100 ml of Omnipaque 350 Oral: 500 ml of Omni 240 10-25ml diluted with water CT Radiation dose: Integrated Dose-length product (DLP) for this visit = 2133 mGy*cm. CT Dose Reduction Employed: Automated exposure control (AEC) COMPARISON: PET CT 10/15/[address] abdomen pelvis 05/17/2023 Abdomen / Pelvis: Liver: No focal hepatic lesions. Spleen: No focal splenic lesion. Pancreas: No focal pancreatic lesions. Adrenals: No mass. Biliary: No bile duct dilation. No gallbladder wall thickening. Kidneys: Symmetric nephrograms bilaterally without hydronephrosis. Vasculature: The celiac axis and SMA are patent. The portal vein and branches, splenic vein, SMV, and hepatic veins are patent. Abdominal aorta is normal in caliber. GI tract: No bowel obstruction. Normal appendix. Lymph nodes: Unchanged 1.1 cm left external node which was not PET avid. No new adenopathy. Mesentery/Peritoneum: No ascites, fluid collection, or mass. Pelvis: No mass or fluid collection. Urinary bladder is unremarkable. Bones/Soft tissues: No aggressive osseous lesions. Lower thorax: Dedicated CT imaging of the chest was performed concurrently and is dictated separately. Engine Oiler (topogram) images: Unremarkable. DIVISION OF RADIOLOGY Provider, Omar Zarate - 05/06/2024 * * *Final Report* * * DATE OF EXAM: May 06 2024 1:07PM [facility] - CT ABD/PEL W IVCON / PROCEDURE REASON: Malignant neoplasm of testicle, unspecified laterality, unspecified whether desc * * * * Physician Interpretation * * * * RESULT: EXAMINATION: CT ABDOMEN AND PELVIS WITH IV CONTRAST PATIENT/TECHNOLOGIST PROVIDED HISTORY: CLINICAL INFORMATION ( PROVIDED BY ORDERING CLINICIAN) : Malignant neoplasm of testicle, unspecified laterality, unspecified whether descended or undescended (HCC) TECHNIQUE: CT of the abdomen and pelvis was performed using standard technique, scanning from just above the dome of the diaphragm to the pubic symphysis. . Contrast: IV: 100 ml of Omnipaque 350 Oral: 500 ml of Omni 240 10-25ml diluted with water CT Radiation dose: Integrated Dose-length product (DLP) for this visit = 2133 mGy*cm. CT Dose Reduction Employed: Automated exposure control (AEC) COMPARISON: PET CT 10/15/[address] abdomen pelvis 05/17/2023 Abdomen / Pelvis: Liver: No focal hepatic lesions. Spleen: No focal splenic lesion. Pancreas: No focal pancreatic lesions. Adrenals: No mass. Biliary: No bile duct dilation. No gallbladder wall thickening. Kidneys: Symmetric nephrograms bilaterally without hydronephrosis. Vasculature: The celiac axis and SMA are patent. The portal vein and branches, splenic vein, SMV, and hepatic veins are patent. Abdominal aorta is normal in caliber. GI tract: No bowel obstruction. Normal appendix. Lymph nodes: Unchanged 1.1 cm left external node which was not PET avid. No new adenopathy. Mesentery/Peritoneum: No ascites, fluid collection, or mass. Pelvis: No mass or fluid collection. Urinary bladder is unremarkable. Bones/Soft tissues: No aggressive osseous lesions. Lower thorax: Dedicated CT imaging of the chest was performed concurrently and is dictated separately. Engine Oiler (topogram) images: Unremarkable. IMPRESSION IMPRESSION: No metastatic disease in the abdomen or pelvis. Transcribe Date/Time: May 06 2024 2:53P Dictated by: PATY FARRELL MD This examination was interpreted and the report reviewed and electronically signed by: PATY FARRELL MD on May 06 2024 3:00PM EST Thank you for allowing us to participate in the care of your patient. Should there be any questions regarding this interpretation, please call [phone]. If you are unable to reach us at the number above, please feel free to contact [facility] at [phone]. [facility] CT CHEST W IVCONon CT CHEST W IVCON * * *Final Report* * * DATE OF EXAM: May 06 2024 1:07PM [facility]39 - CT CHEST W IVCON / PROCEDURE REASON: Malignant neoplasm of testicle, unspecified laterality, unspecified whether desc * * * * Physician Interpretation * * * * RESULT: EXAMINATION: CHEST CT WITH CONTRAST CLINICAL HISTORY: Malignant neoplasm of testicle, unspecified laterality, unspecified whether descended or undescended (HCC) Technique: Spiral CT acquisition of the chest from the thoracic inlet to the upper abdomen following IV contrast. MQ: CTCWR_5 Contrast: 100 mL Omnipaque [address] Dose-Length Product: mGy*cm CT Dose Reduction Employed: Automated exposure control (AEC) Comparison: PET CT 10/15/[address] 05/17/2023 RESULT: Lines, tubes, and devices: None. Lung parenchyma and airways: Trachea and central airways are patent. No consolidative opacity. No suspicious appearing pulmonary nodules. Pleural space: No pleural effusion or pneumothorax. Lower neck, lymph nodes, and mediastinum: No axillary, supraclavicular, mediastinal or hilar lymphadenopathy by CT size criteria. Heart, pericardium, and thoracic vessels: The heart is normal in size. No pericardial effusion. The thoracic aorta and main pulmonary artery are normal in caliber. Bones/Soft Tissues: No aggressive osseous lesions. Upper abdomen: Dedicated CT imaging of the abdomen and pelvis was performed concurrently and is dictated separately. Engine Oiler (topogram) images: Unremarkable. IMPRESSION: No metastatic disease in the chest. Transcribe Date/Time: May 06 2024 3:01P Dictated by: PATY FARRELL MD This examination was interpreted and the report reviewed and electronically signed by: PATY FARRELL MD on May 06 2024 3:09PM EST Thank you for allowing us to participate in the care of your patient. Should there be any questions regarding this interpretation, please call [phone]. If you are unable to reach us at the number above, please feel free to contact [facility] at [phone]. [id number] Normal [facility] CT Chest W contrast Tammi IMPRESSION: No metastatic disease in the chest. Transcribe Date/Time: May 06 2024 3:01P Dictated by: PATY FARRELL MD This examination was interpreted and the report reviewed and electronically signed by: PATY FARRELL MD on May 06 2024 3:09PM EST Thank you for allowing us to participate in the care of your patient. Should there be any questions regarding this interpretation, please call [phone]. If you are unable to reach us at the number above, please feel free to contact [facility] at [phone]. DIVISION OF RADIOLOGY * * *Final Report* * * DATE OF EXAM: May 06 2024 1:07PM [facility]39 - CT CHEST W IVCON / PROCEDURE REASON: Malignant neoplasm of testicle, unspecified laterality, unspecified whether desc * * * * Physician Interpretation * * * * RESULT: EXAMINATION: CHEST CT WITH CONTRAST CLINICAL HISTORY: Malignant neoplasm of testicle, unspecified laterality, unspecified whether descended or undescended (HCC) Technique: Spiral CT acquisition of the chest from the thoracic inlet to the upper abdomen following IV contrast. MQ: CTCWR_5 Contrast: 100 mL Omnipaque [address] Dose-Length Product: mGy*cm CT Dose Reduction Employed: Automated exposure control (AEC) Comparison: PET CT 10/15/[address] 05/17/2023 RESULT: Lines, tubes, and devices: None. Lung parenchyma and airways: Trachea and central airways are patent. No consolidative opacity. No suspicious appearing pulmonary nodules. Pleural space: No pleural effusion or pneumothorax. Lower neck, lymph nodes, and mediastinum: No axillary, supraclavicular, mediastinal or hilar lymphadenopathy by CT size criteria. Heart, pericardium, and thoracic vessels: The heart is normal in size. No pericardial effusion. The thoracic aorta and main pulmonary artery are normal in caliber. Bones/Soft Tissues: No aggressive osseous lesions. Upper abdomen: Dedicated CT imaging of the abdomen and pelvis was performed concurrently and is dictated separately. Engine Oiler (topogram) images: Unremarkable. DIVISION OF RADIOLOGY Provider, [facility] - 05/06/2024 * * *Final Report* * * DATE OF EXAM: May 06 2024 1:07PM [facility] 0539 - CT CHEST W IVCON / PROCEDURE REASON: Malignant neoplasm of testicle, unspecified laterality, unspecified whether desc * * * * Physician Interpretation * * * * RESULT: EXAMINATION: CHEST CT WITH CONTRAST CLINICAL HISTORY: Malignant neoplasm of testicle, unspecified laterality, unspecified whether descended or undescended (HCC) Technique: Spiral CT acquisition of the chest from the thoracic inlet to the upper abdomen following IV contrast. MQ: CTCWR_5 Contrast: 100 mL Omnipaque [address] Dose-Length Product: mGy*cm CT Dose Reduction Employed: Automated exposure control (AEC) Comparison: PET CT 10/15/[address] 05/17/2023 RESULT: Lines, tubes, and devices: None. Lung parenchyma and airways: Trachea and central airways are patent. No consolidative opacity. No suspicious appearing pulmonary nodules. Pleural space: No pleural effusion or pneumothorax. Lower neck, lymph nodes, and mediastinum: No axillary, supraclavicular, mediastinal or hilar lymphadenopathy by CT size criteria. Heart, pericardium, and thoracic vessels: The heart is normal in size. No pericardial effusion. The thoracic aorta and main pulmonary artery are normal in caliber. Bones/Soft Tissues: No aggressive osseous lesions. Upper abdomen: Dedicated CT imaging of the abdomen and pelvis was performed concurrently and is dictated separately. Engine Oiler (topogram) images: Unremarkable. IMPRESSION IMPRESSION: No metastatic disease in the chest. Transcribe Date/Time: May 06 2024 3:01P Dictated by: PATY FARRELL MD This examination was interpreted and the report reviewed and electronically signed by: PATY FARRELL MD on May 06 2024 3:09PM EST Thank you for allowing us to participate in the care of your patient. Should there be any questions regarding this interpretation, please call [phone]. If you are unable to reach us at the number above, please feel free to contact [facility] at [phone]. [facility] CT Chest W contrast IVOrdere d By: [facility] Provider on 05-06-2024 [facility] No Panel Informationon 05-06 Radiology Study observation (narrative) [facility] Provider Letteron 04-09-2024 Provider Letter Provider Letter April 09, 2024 JORDAN BENNETT [address] [id number] : 1975 Dear Jordna We have been trying to reach you with no success. It is important that you return our call regarding your test results upon receiving this letter. Also, at the time of your call, please provide us with your current information. Thank you for your prompt attention to this matter. Sincerely, [facility] [address] 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 Screening PSA (prostate specific antigen) Asymptomatic microscopic hematuria Your Care Team Attending Physician - Chantal LEWIS MD Primary Care Physician - Dimitry NI DO This Is Your Medications List alfuzosin (alfuzosin 10 mg ER Tab) Contact prescribing physician if questions or concerns cranberry (cranberry oral capsule) hydrochlorothiazide-lisino pril (hydrochlorothiazide-lisin opril 12.5 mg-20 mg Tab) multivitamin (Multi Vitamin+) nabumetone (nabumetone 750 mg Tab) omeprazole (Prilosec) trazodone (traZODONE 50 mg Tab) zinc sulfate (Zinc) Procedures Performed Right total orchiectomy (08/03/2021), Cystoscopy. Discharge Vitals Heart Rate (Peripheral) 70 Respiratory Rate 16 Blood Pressure 130/92 Height 180 cm Height 71 in Weight 157 kg Weight 345.4 lb BMI 48.46 What to do next Scheduled Follow-Up Appointments Saturday 8:45 AM EDT With: Chantal LEWIS MD Where: [facility] [place] [address] [place] [address]- You Need to Schedule the Following Appointments Follow Up with DEBBIE DELUCA, GRICELDA Bates When: Comments: 10 mos (getting PSA done soon) Where: [facility] [address], [place] [address]- [phone] Medications What How Much When Instructions New alfuzosin (alfuzosin 10 mg ER Tab) 1 Tablets By Mouth Every day Refills: 11 Pickup at [facility] #[id number] Unchanged cranberry (cranberry oral capsule) See instructions Contact prescribing physician if questions or concerns Unchanged hydrochlorothiazide-lisino pril (hydrochlorothiazide-lisin opril 12.5 mg-20 mg Tab) 1 Tablets By Mouth Every day Contact prescribing physician if questions or concerns Unchanged multivitamin (Multi Vitamin+) Contact prescribing physician if questions or concerns Unchanged nabumetone (nabumetone 750 mg Tab) 2 Tablets By Mouth Every day Contact prescribing physician if questions or concerns Unchanged omeprazole (Prilosec) By Mouth Every day Contact prescribing physician if questions or concerns Unchanged trazodone (traZODONE 50 mg Tab) 1 Tablets By Mouth Once a day (at bedtime) TAKE 1 TABLET BY MOUTH AT BEDTIME NEEDED Contact prescribing physician if questions or concerns Unchanged zinc sulfate (Zinc) By Mouth Every day Contact prescribing physician if questions or concerns Pharmacy Information [facility] #[id number]: [address] [place], [place] [phone] Allergies shellfish (Unknown) Problems Ongoing - Any problem that you are currently receiving treatment for. Asymptomatic microscopic hematuria BPH with obstruction/lower urinary tract symptoms Epididymal mass Essential hypertension Gastroesophageal reflux disease without esophagitis Nocturia Obstructive sleep apnea syndrome Screening PSA (prostate specific antigen) Seminoma of right testis Testicular cancer Testicular lump Testicular mass Patient Survey You may receive a survey via text or e-mail asking about your office visit. Please share your experience with us by completing your survey. We appreciate your feedback and thank you for choosing us for your care. Education Materials Testicular Self-Exam A self-examination of your testicles (testicular self-exam) involves looking at and feeling your testicles for abnormal lumps or swelling. Several things can cause swelling, lumps, or pain in your testicles, including: ? Injuries. ? Inflammation. ? Infection. ? Buildup of fluids around the testicle (hydrocele). ? Twisted testicles (testicular torsion). ? Testicular cancer. You may be at risk for this if you have: ? A testicle that has not descended. ? Previously had testicular cancer. ? A family history of testicular cancer. General tips ? It is easiest to do a self-exam during or after a warm bath or shower. Testicles are harder to examine when you are cold because the muscles attached to the testicles retract and pull them up higher or into the abdomen. ? A normal testicle is egg-shaped and feels firm. It is smooth and not tender. ? It is normal to feel a firm, spaghetti-like cord at the back of your testicle. This is the spermatic cord. ? Do a self-exam once a month. How to do a testicular self-exam 1. Stand and hold your penis away from your body. 2. Look at each testicle to check for changes in appearance, such as swelling or changes in size or shape. 3. Roll each testicle between your thumb and forefinger, feeling the entire testicle. Feel for: ? Lumps. ? Swelling. ? Discomfort. 4. Check for swelling or tender bumps in the groin area. Yo (more content not included)... Normal [facility] Urology Office/Clinic Noteon 03-23-2024 Urology Office/Clinic Note Urology Office/Clinic Note Chief Complaint Tesicular cancer follow up HPI Staff F/u to testicular cancer. Dx: cancer of testis, seminoma, asymptomatic microhematuria and BPH with urinary obstruction. S/P right orchiectomy 08/03/21. Dysuria: denies Incomplete bladder emptying: yes, PVR: 35 ml Hematuria: denies Frequency: denies Urgency: denies Nocturia: once a night Stream: has hesitancy, has a steady stream, some stop and go Leaking: denies Post void dripping: denies Wearing pads/ Depends: denies Urge incontinence: denies Stress incontinence: denies Incontinence without Sensory Awareness: denies Abdominal pain: denies Flank pain: denies Sexual complaints: _ History of Present Illness Tests reviewed: reviewed UA I have reviewed the previous health record information and history for this patient from Dr. Jasso, Dr. Peters, and Dr. Lewis. I have reviewed and verified the staff HPI to be accurate for this encounter. Review of Systems PHQ Score Initial Depression Screen Score: 0 SCORE ROS - Provider Constitutional: denies weight loss, denies hot flashes. Eyes: denies eye problems. Gastrointestinal: denies nausea, denies vomiting. Cardiovascular: denies chest pain or angina. Integumentary: no dryness Musculoskeletal: denies musculoskeletal symptoms. ENMT: denies otolaryngeal symptoms. Respiratory: no shortness of breath. Heme/Lymph: denies easy bleeding tendency, denies easy bruising tendency. Psychiatric: no confusion, no anxiety. Genitourinary: See HPI. Physical Exam Vitals & Measurements HR: 70(Peripheral) RR: 16 BP: 130/92 HT: 71 in HT: 180 cm WT: 157 kg WT: 345.4 lb BMI: 48.46 General Appearance: alert, no distress, well nourished, well developed male. Genitourinary: normal scrotum, normal testes, normal urethra, normal epididymis, normal vas deferens/spermatic cord. Assessment/Plan 1. 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 Staging indicated a predicted 15-20% risk of recurrence. Had elected to proceed with per NCCN guidelines. Staging CT scans 10/2022 - slight increased size of aortocaval lymph nodes. CT AP 05/17/23 - further increased size of an aortocaval lymph node to 1.3 cm. PET scan 06/07/23 - significant FDG uptake in area consistent with mets. Dx'd w/ stage IIa disease. Radiation to periaortic and right pelvic lymph nodes 07/15/23 - 08/02/[address] Jasso. PET scan 10/15/23 - consistent with complete response. Tumor markers 02/06/24 - Beta HCG <1, AFP <3, LDH [address] Peters 02/06/24 with plans to f/u in April with labs and restaging CT scans. Currently feels good, no pain. Reports he has only had one recurrence which responded while to radiation. -Cont following with [facility] onc[facility] 2. BPH with obstruction/lower urinary tract symptoms (N40.1: Benign prostatic hyperplasia with lower urinary tract symptoms) Not taking any prostate meds. Reports he occasionally voids and has to go again shortly after. Also feels stream has weakened. No longer getting up at night, wears a c-pap. Discussed starting prostate med to help with urinary flow and emptying. Possible SEs discussed. -Start Alfuzosin ER 10mg qd. Rx sent to [facility]. -F/u in 10 mos 3. Screening PSA (prostate specific antigen) (Z12.5: Encounter for screening for malignant neoplasm of prostate) PSA 06/07/21 - 0.5 No updated PSA. Recommended pt to do this soon and will call pt with the results. -PSA now, plans to go to [facility]. Asymptomatic microscopic hematuria (R31.21: Asymptomatic microscopic hematuria) Negative Cysto 06/20/21. UA today shows trace-intact blood. Denies gross hematuria. Follow-up With When Contact Information DEBBIE DELUCA, Chantal Grande, URL [facility] [address], [place] [address] [phone] Additional Instructions: 10 mos (getting PSA done soon) Patient Education Testicular Self-Exam Prostate Cancer Screening IKim, personally scribed for Dr. Lewis on 03/23/2024 10:56:00. . Documentation recorded by the scribe, Kim Rios, accurately reflects the services(s) I performed and decisions made by me. Authenticated by Dr. Lewis on 03/23/2024 11:00:03. Problem List/Past Medical History Ongoing Asymptomatic microscopic hematuria BPH with obstruction/lower urinary tract symptoms Epididymal mass Essential hypertension Gastroesophageal reflux disease without esophagitis Nocturia Obstructive sleep apnea syndrome Screening PSA (prostate specific antigen) Seminoma of right testis Testicular cancer Testicular lump Testicular mass Historical No qualifying data Procedure/Surgical History Right total orchiectomy (08/03/2021), Cystoscopy. Medications alfuz (more content not included)... Normal [facility] Comment on above: Result Comment: Elec tronically Signed By: Chantal LEWIS MD\.br\Date and Time Signed: 03/23/24 11:00 EDT\.br\Electronically Co-Signed By: Kim Rios\.kobe\Date and Time Co-Signed: 03/23/24 10:57 EDT AFP Diego 02-06-2024 AFP [Mass/Vol] ng/mL Normal <11.0 [facility] Comment on above: Order Comment: Speci men Type: BLOOD SPECIMENOrdering Facility: [facility] Address: [address] [place] [address] Result Comment: Resu lt rechecked. The Alpha-Fetoprotein test was performed using the Siemens Centaur XP chemiluminometric immunoassay method. Results obtained with different assay methods or kits cannot be used interchangeably. 1.75 The Alpha-Fetoprotein test was performed using the Osteomimetics DxI immunoenzymatic assay. Results obtained with different assay methods or kits cannot be used interchangeably. Performed By: #### 1 834-1 ####[facility] LABCLIA [id number] [address] OF [facility] BETA HCG QUANT TUMOR MARKERo n 02-06-2024 BETA HCG QUANT TUMOR MARKER <1 Normal 0-3 [facility] Comment on above: Order Comment: Speci men Type: BLOOD SPECIMENOrdering Facility: [facility] Address: [address] [place] [address] Result Comment: INTE RPRETIVE INFORMATION: Beta hCG, Serum Quantitation Tumor Marker Human chorionic gonadotropin (hCG) is a valuable aid in the management of patients with trophoblastic tumors, nonseminomatous testicular tumors and seminomas when used in conjunction with information available from the clinical evaluation and other diagnostic procedures. Increased serum HCG concentrations have also been observed in melanoma, carcinomas of the breast, gastrointestinal tract, lung, and ovaries, and in benign conditions, including cirrhosis, duodenal ulcer, and inflammatory bowel disease. This result cannot be interpreted as absolute evidence of the presence or absence of malignant disease. This result is not interpretable as a tumor marker in females. The combination of the specific monoclonal antibodies used in the David Beta HCG electrochemiluminescent immunoassay recognize the holo-hormone, nicked forms of hCG, the beta-core fragment, and the free beta-subunit. Results obtained with different test methods or kits cannot be used interchangeably. Although this assay is FDA cleared for use in the detection of , it is not labeled for use as a tumor marker. Access complete set of age- and/or gender-specific reference intervals for this test in the [facility] Test Directory (Alere). This test was developed and its performance characteristics determined by [facility]. It has not been cleared or approved by the [place] Food and Drug Administration. This test was performed in a CLIA certified laboratory and is intended for clinical purposes. Performed By: [facility] [address] [id number] Digital Tech: Cam Archibald MD, PhD CLIA Number: [id number] Performed By: #### B HCG ####[facility] [id number] [place] [id number] CBC W Auto Differential pane l (Bld)on 02-06-2024 Basophils (Bld) [#/Vol] 0.03 10*3/uL Normal <0.11 [facility] Comment on above: Order Comment: Speci men Type: BLOOD SPECIMENOrdering Facility: [facility] Address: [address] [place] [address] Performed By: #### 5 7021-8 ####[facility] LABCLIA [id number] [place] [address] Basophils/100 WBC (Bld) 0.4 % Normal [facility] Comment on above: Order Comment: Speci men Type: BLOOD SPECIMENOrdering Facility: [facility] Address: [address] [place] [address] Performed By: #### 5 7021-8 ####[facility] LABCLIA [id number] [place] [address] Differential cell count method Nom (Bld) Auto Normal [facility] Comment on above: Order Comment: Speci men Type: BLOOD SPECIMENOrdering Facility: [facility] Address: [address] [place] [address] Performed By: #### 5 7021-8 ####[facility] LABCLIA [id number] [place] [address] Eosinophils (Bld) [#/Vol] 0.14 10*3/uL Normal <0.46 [facility] Comment on above: Order Comment: Speci men Type: BLOOD SPECIMENOrdering Facility: [facility] Address: [address] [place] [address] Performed By: #### 5 7021-8 ####[facility] LABCLIA [id number] [place] [address] Eosinophils/100 WBC (Bld) 1.9 % Normal [facility] Comment on above: Order Comment: Speci men Type: BLOOD SPECIMENOrdering Facility: [facility] Address: [address] [place] [address] Performed By: #### 5 7021-8 ####[facility] LABIA [id number] [place] [address] Erythrocyte distribution width (RBC) [Ratio] 13.1 % Normal 11.5-15.0 [facility] Comment on above: Order Comment: Speci men Type: BLOOD SPECIMENOrdering Facility: [facility] Address: [address] [place] [address] Performed By: #### 5 7021-8 ####[facility] LABCLIA [id number] [place] [address] Hematocrit (Bld) [Volume fraction] 38.4 % Low 39.0-51.0 [facility] Comment on above: Order Comment: Speci men Type: BLOOD SPECIMENOrdering Facility: [facility] Address: [address] [place] [address] Performed By: #### 5 7021-8 ####[facility] LABIA [id number] [place] [address] Hemoglobin (Bld) [Mass/Vol] 13.9 g/dL Normal 13.0-17.0 [facility] Comment on above: Order Comment: Speci men Type: BLOOD SPECIMENOrdering Facility: [facility] Address: [address] [place] [address] Performed By: #### 5 7021-8 ####[facility] LABCLIA [id number] [place] [address] Immature granulocytes (Bld) [#/Vol] 0.05 10*3/uL Normal <0.10 [facility] Comment on above: Order Comment: Speci men Type: BLOOD SPECIMENOrdering Facility: [facility] Address: [address] [place] [address] Performed By: #### 5 7021-8 ####[facility] LABIA [id number] [place] [address] Immature granulocytes/100 WBC (Bld) 0.7 % Normal [facility] Comment on above: Order Comment: Speci men Type: BLOOD SPECIMENOrdering Facility: [facility] Address: [address] [place] [address] Performed By: #### 5 7021-8 ####[facility] LABIA [id number] [place] [address] Lymphocytes (Bld) [#/Vol] 1.00 10*3/uL Normal 1.00-4.00 [facility] Comment on above: Order Comment: Speci men Type: BLOOD SPECIMENOrdering Facility: [facility] Address: [address] [place] [address] Performed By: #### 5 7021-8 ####[facility] LABCLIA [id number] [place] [address] Lymphocytes/100 WBC (Bld) 13.5 % Normal [facility] Comment on above: Order Comment: Speci men Type: BLOOD SPECIMENOrdering Facility: [facility] Address: [address] [place] [address] Performed By: #### 5 7021-8 ####[facility] LABIA [id number] [place] [address] MCH (RBC) [Entitic mass] 30.5 pg Normal 26.0-34.0 [facility] Comment on above: Order Comment: Speci men Type: BLOOD SPECIMENOrdering Facility: [facility] Address: [address] [place] [address] Performed By: #### 5 7021-8 ####[facility] LABCLIA [id number] [place] [address] MCHC (RBC) [Mass/Vol] 36.2 g/dL High 30.5-36.0 [facility] Comment on above: Order Comment: Speci men Type: BLOOD SPECIMENOrdering Facility: [facility] Address: [address] [place] [address] Performed By: #### 5 7021-8 ####[facility] LABCLIA [id number] [place] [address] MCV (RBC) [Entitic vol] 84.4 fL Normal 80.0-100.0 [facility] Comment on above: Order Comment: Speci men Type: BLOOD SPECIMENOrdering Facility: [facility] Address: [address] [place] [address] Performed By: #### 5 7021-8 ####[facility] LABIA [id number] [place] [address] Monocytes (Bld) [#/Vol] 0.39 10*3/uL Normal <0.87 [facility] Comment on above: Order Comment: Speci men Type: BLOOD SPECIMENOrdering Facility: [facility] Address: [address] [place] [address] Performed By: #### 5 7021-8 ####[facility] LABIA [id number] [place] [address] Monocytes/100 WBC (Bld) 5.2 % Normal [facility] Comment on above: Order Comment: Speci men Type: BLOOD SPECIMENOrdering Facility: [facility] Address: [address] [place] [address] Performed By: #### 5 7021-8 ####[facility] LABCLIA [id number] [place] [address] Neutrophils (Bld) [#/Vol] 5.82 10*3/uL Normal 1.45-7.50 [facility] Comment on above: Order Comment: Speci men Type: BLOOD SPECIMENOrdering Facility: [facility] Address: [address] [place] [address] Performed By: #### 5 7021-8 ####[facility] LABCLIA [id number] [place] [address] Neutrophils/100 WBC (Bld) 78.3 % Normal [facility] Comment on above: Order Comment: Speci men Type: BLOOD SPECIMENOrdering Facility: [facility] Address: [address] [place] [address] Performed By: #### 5 7021-8 ####[facility] LABCLIA [id number] [place] [address] Nucleated RBC (Bld) [#/Vol] 10*3/uL Normal <0.01 [facility] Comment on above: Order Comment: Speci men Type: BLOOD SPECIMENOrdering Facility: [facility] Address: [address] [place] [address] Performed By: #### 5 7021-8 ####[facility] LABCLIA [id number] [place] [address] Nucleated RBC/100 WBC (Bld) [Ratio] 0.0 /100 WBC Normal [facility] Comment on above: Order Comment: Speci men Type: BLOOD SPECIMENOrdering Facility: [facility] Address: [address] [place] [address] Performed By: #### 5 7021-8 ####[facility] LABIA [id number] [place] [address] Platelet mean volume (Bld) [Entitic vol] 10.1 fL Normal 9.0-12.7 [facility] Comment on above: Order Comment: Speci men Type: BLOOD SPECIMENOrdering Facility: [facility] Address: [address] [place] [address] Performed By: #### 5 7021-8 ####[facility] LABIA [id number] [place] [address] Platelets (Bld) [#/Vol] 229 10*3/uL Normal 150-400 [facility] Comment on above: Order Comment: Speci men Type: BLOOD SPECIMENOrdering Facility: [facility] Address: [address] [place] [address] Performed By: #### 5 7021-8 ####[facility] LABIA [id number] [place] [address] RBC (Bld) [#/Vol] 4.55 10*6/uL Normal 4.20-6.00 [facility] Comment on above: Order Comment: Speci men Type: BLOOD SPECIMENOrdering Facility: [facility] Address: [address] [place] [address] Performed By: #### 5 7021-8 ####[facility] LABIA [id number] [place] [address] WBC (Bld) [#/Vol] 7.43 10*3/uL Normal 3.70-11.00 [facility] Comment on above: Order Comment: Speci men Type: BLOOD SPECIMENOrdering Facility: [facility] Address: [address] [place] [address] Performed By: #### 5 7021-8 ####[facility] LABIA [id number] [place] [address] CNOVSPon 02-06-2024 CNOVS Visit (SP) Office ( [place]) -- JORDAN BENNETT ([id number]) 1975 M Date Time Provider Department 02/06/24 3:45 PM JORDAN PETERS During your visit today, we recorded the following information about you: Temperature Pulse Respiration Blood pressure 97.8 degrees 75/minute 18/minute 154/91 Weight 158.6 kg Jordan Peters MD 02/07/2024 7:25 AM Signed PATIENT NAME: Jordan Bennett DATE: 02/06/2024 PRIMARY CARE PHYSICIAN: Ashli Ni DO OTHER PHYSICIANS: Dr. Lewis, Dr. Jasso Portions of this encounter note have been copied from the note from 06/27/2023 and has been updated where appropriate, and reflect my current medical decision making from today. CC: This is a 48 year old male with metastatic seminoma of the right testicle, seen for scheduled follow-up. INTERIM HISTORY: Since the patient's last visit here he completed radiation therapy as primary treatment for his metastatic seminoma. He tolerated treatment well. Subsequent PET scan consistent with complete response. On follow-up today he has no complaints. No abdominal pain or other GI symptoms. Energy and appetite remain excellent. MEDICATIONS: Current Outpatient Medications Medication Sig NABUMETONE ORAL Take 500 mg by mouth two times a day. aspirin 81 mg cap Take 81 mg by mouth once daily. ondansetron (ZOFRAN) 8 mg tablet Take 1 tablet by mouth every 8 hours as needed for nausea/vomiting. (Patient not taking: Reported on 10/22/2023) lisinopril-hydroCHLOROthia zide (ZESTORETIC) 20-12.5 mg per tablet Take 2 tablets by mouth every afternoon. traZODone (DESYREL) 50 mg tablet Take 50 mg by mouth at bedtime as needed. (Patient not taking: Reported on 10/22/2023) Omeprazole 20 mg TbEC Take by mouth. multivit-min/ferrous fumarate (MULTI VITAMIN ORAL) Refill(s) 0 Zinc 50 mg tab Take by mouth. (Patient not taking: Reported on 10/22/2023) No current facility-administered medications for this visit. ALLERGIES: ALLERGIES Allergen Reactions Penicillins Rash Shellfish Containin* Other: See Comments PAST MEDICAL HISTORY: PAST MEDICAL HISTORY No date: BPH (benign prostatic hyperplasia) No date: Epididymal mass No date: Hematuria No date: Primary hypertension No date: Testicular cancer (HCC) PAST SURGICAL HISTORY: PAST SURGICAL HISTORY No date: CYSTOSCOPY 08/03/2021: PAST SURGICAL HISTORY OF; Right FAMILY HISTORY: FAMILY HISTORY Problem Relation Age of Onset Brain Cancer Father Cancer Paternal Grandfather SOCIAL HISTORY: Social History Tobacco Use Smoking status: Never Smokeless tobacco: Never Vaping Use Vaping status: Never Used Substance Use Topics Alcohol use: Not Currently Drug use: Never COMPLETE REVIEW OF SYSTEMS: CONSTITUTION: Negative for pain, fatigue, weight loss, or appetite loss. EENT: Negative for mouth soreness, antibiotics use, epistaxis, visual problems, neck or facial swelling, fever/chills, bleeding gums, or hearing loss. CV: Negative for edema, calf swelling, palpitations, or chest pain. RESPIRATORY: Negative for cough, SOB, hemoptysis, or wheezing. GI: Negative for nausea/vomiting, heartburn, vomiting blood, dysphasia, diarrhea, blood in stool, constipation, early satiety, PICA, vegetarian, poor nutrition, abdominal fullness, or abdominal pain. NEUROLOGICAL: Negative for numbness/tingling, dizziness, gait disturbance, headache, speech disturbance, tremor, hemiparesis/sensory loss, or change in mental status. MUSCULOSKELETAL: Negative for joint pain, joint swelling, or proximal muscle weakness. SKIN: Negative for hair loss, bruising, nail changes, rash, itching, pallor, or jaundice. ENDO/URO: Negative for hot flashes, cold or heat intolerance, urinary frequency, urinary hesitancy, menorrhagia, or hematuria. PSYCH: Negative for anxiety, depression, or other. PHYSICAL EXAM: BP 154/91 Pulse 75 Temp 36.6 ?C (97.8 ?F) (Temporal) Resp 18 Wt (!) 158.6 kg (349 lb 10.4 oz) SpO2 100% BMI 48.79 kg/m? General: Alert and oriented, no distress, pleasant and cooperative. Heart: Regular, normal S1 and S2, no murmurs, rubs, or gallops Lungs: Clear to auscultation bilaterally Abdomen: Benign Extremities: Feet/ankles without edema, posterior tibial pulses full and symmetrical PATHOLOGY: 08/03/2021 Radical right orchiectomy ([facility]) Classic seminoma testicle: 3.2 x 3.0 x 2.5 cm. Intratubular seminoma. The tumor focally invades epididymis and hilar soft tissue. Angiolymphatic invasion is present. The spermatic cord resection margin is free of neoplasm. LABORATORY DATA: Hemoglobin (g/dL) Date Value 02/06/2024 13.9 Hematocrit (%) Date Value 02/06/2024 38.4 WBC (k/uL) Date Value 02/06/2024 7.43 Platelet Count (k/uL) Date Value 02/06/2024 229 RADIOLOGY/OTHER STUDIES: 10/15/2023 PET scan IMPRESSION: HEAD/NECK: * No FDG (more content not included)... Normal [facility] Comprehensive metabolic 2000 panelon 02-06-2024 Albumin [Mass/Vol] 4.2 g/dL Normal 3.9-4.9 [facility] Comment on above: Order Comment: Speci men Type: BLOOD SPECIMENOrdering Facility: [facility] Address: [address] [place] [address] Performed By: #### 2 4328, 0 ####[facility] LABCLIA [id number] [place] [address] ALP [Catalytic activity/Vol] 66 U/L Normal 38-113 [facility] Comment on above: Order Comment: Speci men Type: BLOOD SPECIMENOrdering Facility: [facility] Address: [address] [place] [address] Performed By: #### 2 4328, 0 ####[facility] LABCLIA [id number] [place] [address] ALT [Catalytic activity/Vol] 24 U/L Normal 10-54 [facility] Comment on above: Order Comment: Speci men Type: BLOOD SPECIMENOrdering Facility: [facility] Address: [address] [place] [address] Performed By: #### 2 4323-8, 0 ####[facility] LABCLIA [id number] [place] [address] Anion gap [Moles/Vol] 13 mmol/L Normal 8-15 [facility] Comment on above: Order Comment: Speci men Type: BLOOD SPECIMENOrdering Facility: [facility] Address: [address] [place] [address] Performed By: #### 2 4323-8, 2531-0 ####[facility] LABCLIA [id number] [place] [address] AST [Catalytic activity/Vol] 17 U/L Normal 14-40 [facility] Comment on above: Order Comment: Speci men Type: BLOOD SPECIMENOrdering Facility: [facility] Address: [address] [place] [address] Performed By: #### 2 4323-8, 2531-0 ####[facility] LABCLIA [id number] [place] [address] Bilirubin [Mass/Vol] 0.3 mg/dL Normal 0.2-1.[address] [facility] Comment on above: Order Comment: Speci men Type: BLOOD SPECIMENOrdering Facility: [facility] Address: [address] [place] [address] Performed By: #### 2 4323-8, 2531-0 ####[facility] LABCLIA [id number] [place] [address] Calcium [Mass/Vol] 9.5 mg/dL Normal 8.5-10.2 [facility] Comment on above: Order Comment: Speci men Type: BLOOD SPECIMENOrdering Facility: [facility] Address: [address] [place] [address] Performed By: #### 2 4323-8, 2531-0 ####[facility] LABCLIA [id number] [place] [address] Chloride [Moles/Vol] 103 mmol/L Normal 98-[address] [facility] Comment on above: Order Comment: Speci men Type: BLOOD SPECIMENOrdering Facility: [facility] Address: [address] [place] [address] Performed By: #### 2 4323-8, 0 ####[facility] LABCLIA [id number] [place] [address] CO2 [Moles/Vol] 22 mmol/L Normal 22-30 [facility] Comment on above: Order Comment: Speci men Type: BLOOD SPECIMENOrdering Facility: [facility] Address: [address] [place] [address] Performed By: #### 2 4328, 0 ####[facility] LABCLIA [id number] [place] [address] Creatinine [Mass/Vol] 1.07 mg/dL Normal 0.73-1.22 [facility] Comment on above: Order Comment: Speci men Type: BLOOD SPECIMENOrdering Facility: [facility] Address: [address] [place] [address] Performed By: #### 2 4328, 0 ####[facility] LABCLIA [id number] [place] [address] Creatinine and Glomerular filtration rate.predicted panel (S/P/Bld) 85 mL/min/1.73m??? Normal >=60 [facility] Comment on above: Order Comment: Speci men Type: BLOOD SPECIMENOrdering Facility: [facility] Address: [address] [place] [address] Result Comment: Stefanie mated Glomerular Filtration Rate (eGFR) is calculated using the 2020 CKD-EPI creatinine equation. This equation utilizes serum creatinine, sex, and age as parameters. The creatinine assay has traceable calibration to isotope dilution-mass spectrometry. Refer to KDIGO guidelines for clinical interpretation. In patients with unstable renal function, e.g. those with acute kidney injury, the eGFR may not accurately reflect actual GFR. Performed By: #### 2 4323-8, 0 ####[facility] LABCLIA [id number] [place] [address] Glucose [Mass/Vol] 135 mg/dL High 74-99 [facility] Comment on above: Order Comment: Speci men Type: BLOOD SPECIMENOrdering Facility: [facility] Address: [address] [place] [address] Result Comment: The [place] Diabetes Association (ADA) provides guidance for cutoff values for fasting glucose and random glucose. The ADA defines fasting as no caloric intake for at least 8 hours. Fasting plasma glucose results between 100 to 125 mg/dL indicate increased risk for diabetes (prediabetes). Fasting plasma glucose results greater than or equal to 126 mg/dL meet the criteria for diagnosis of diabetes. In the absence of unequivocal hyperglycemia, results should be confirmed by repeat testing. In a patient with classic symptoms of hyperglycemia or hyperglycemic crisis, random plasma glucose results greater than or equal to 200 mg/dL meet the criteria for diagnosis of diabetes. Reference: Standards of Medical Care in Diabetes 2016, [place] [employer]. Diabetes Care. 2016.39(Suppl 1). Performed By: #### 2 4323-8, 0 ####[facility] LABCLIA [id number] [place] [address] Potassium [Moles/Vol] 3.8 mmol/L Normal 3.7-5.1 [facility] Comment on above: Order Comment: Millicenti men Type: BLOOD SPECIMENOrdering Facility: [facility] Address: [address] [place] [address] Performed By: #### 2 4323-8, 0 ####[facility] LABCLIA [id number] [place] [address] Protein [Mass/Vol] 6.6 g/dL Normal 6.3-8.0 [facility] Comment on above: Order Comment: Speci men Type: BLOOD SPECIMENOrdering Facility: [facility] Address: [address] [place] [address] Performed By: #### 2 4323-8, 0 ####[facility] LABCLIA [id number] [place] [address] Sodium [Moles/Vol] 138 mmol/L Normal 136-144 [facility] Comment on above: Order Comment: Speci men Type: BLOOD SPECIMENOrdering Facility: [facility] Address: [address] [place] [address] Performed By: #### 2 4323-8, 2532-0 ####[facility] LABCLIA [id number] [place] [address] Urea nitrogen [Mass/Vol] 21 mg/dL Normal 9-24 [facility] Comment on above: Order Comment: Speci men Type: BLOOD SPECIMENOrdering Facility: [facility] Address: [address] [place], [place] [address] Performed By: #### 2 4323-8, 2532-0 ####[facility] LABIA [id number] [place] [address] LDH SerPl-cCncon 02-06-2024 LDH [Catalytic activity/Vol] 195 U/L Normal 135-225 [facility] Comment on above: Order Comment: Speci men Type: BLOOD SPECIMENOrdering Facility: [facility] Address: [address] [place], [place] [id number] Performed By: #### 2 4323-8, 2532-0 ####[facility] LABIA [id number] [place] [address] CNPDanielle 10-28-2023 [facility] Telephone (RADTSA) -- JORDAN BENNETT ([id number]) 1975 M Date Time Provider Department 10/28/23 JORDAN PETERS During your visit today, we recorded the following information about you: Gavin Rea, ZAKI 10/28/2023 3:29 PM Signed Jordan completed radiation therapy 08/02/23. He has scheduled f/u with Dr. Peters 12/08/24. Pt's is questioning if that appointment is correct, she thought Dr. Peters wanted to see Jordan back in a couple months (2023). She is aware Dr. Peters is retiring next year and is comfortable following with either Dr. Peters or Dr. Jasso. Patient's last follow up with Dr. Jasso was 10/22/23 and pt was to follow up with Dr. Peters. No follow up appt is scheduled with Dr. Jasso at this time. Dr. Peters and Dr. Jasso please advise. NESSA Alonso Ariana, LPN 10/28/2023 4:09 PM Signed PSS and Michelle: Please schedule as indicated per Dr. Urbina. BRM/NEO: Lab orders and CT orders pending your approval. Thanks NESSA Alonso Tiffany 10/29/2023 8:19 AM Signed Patient is called and scheduled for appointments spoke with his . Allergies As of Date: 10/28/2023 Noted Allergy Reaction PENICILLINS 08/23/2021 2 - Rash SHELLFISH CONTAINING PRODUCTS 08/23/2021 14 - Other: See Comments Date Reviewed: 10/22/2023 Reviewed by: Dolores Dickerson RN - Fully Assessed Reason for Visit: Appointment [186] Primary Visit Diagnosis:Malignant neoplasm of testicle, unspecified laterality, 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] Order(s):COMPLETE BLOOD COUNT AND DIFFERENTIAL [SQCBCDIF] Order #: [id number] FUTURE ALPHA FETOPROTEIN [SQAFP] Order #: [id number] FUTURE BETA HCG QUANT TUMOR MARKER [SQBHCG] Order #: [id number] FUTURE COMPREHENSIVE METABOLIC PANEL [SQCMP] Order #: [id number] FUTURE LACTATE DEHYDROGENASE [SQLD6] Order #: [id number] FUTURE CT CHEST W IVCON [[id number]] Order #: [id number] FUTURE iv contrast (will be provided with radiology test)CT Chest W -Inject, intravenously, once for 1 dose.No IV access, insert saline lock prior to the beginning of sedation, infusion, injection of imaging exam. Discontinue saline lock post exam. If Pt. has a central line or IVAD, may access for administration according to line specific nursing protocol. Once exam is complete flush line and de-access according to line specific nursing protocol in the CT contrast administration guidelines link.Disp: 1 EachRfl: 0 CT ABD/PEL W IVCON [[id number]] Order #: [id number] FUTURE iv contrast (will be provided with radiology test)CT ABD/PEL -Inject, intravenously, once for 1 dose.No IV access, insert saline lock prior to the beginning of sedation, infusion, injection of imaging exam. Discontinue saline lock post exam. If Pt. has a central line or IVAD, may access for administration according to line specific nursing protocol. Once exam is complete flush line and de-access according to line specific nursing protocol in the CT contrast administration guidelines link.Disp: 1 EachRfl: 0 enteric contrast (will be provided with radiology test)For CT ABD/PEL W IVCON Routine order Administer, As Directed One Time Only, via Oral, Rectal, both Oral and Rectal, Enteric Tube, Stoma or Indwelling Catheter, Enteric Contrast as designated per enteric contrast guidelinesDisp: 1 EachRfl: 0 Prescriptions as of 10/29/2023 - iv contrast (will be provided with radiology test) CT Chest W -Inject, intravenously, once for 1 dose.No IV access, insert saline lock prior to the beginning of sedation, infusion, injection of imaging exam. Discontinue saline lock post exam. If Pt. has a central line or IVAD, may access for administration according to line specific nursing protocol. Once exam is complete flush line and de-access according to line specific nursing protocol in the CT contrast administration guidelines link. - iv contrast (will be provided with radiology test) CT ABD/PEL -Inject, intravenously, once for 1 dose.No IV access, insert saline lock prior to the beginning of sedation, infusion, injection of imaging exam. Discontinue saline lock post exam. If Pt. has a central line or IVAD, may access for administration according to line specific nursing protocol. Once exam is complete flush line and de-access according to line specific nursing protocol in the CT contrast administration guidelines link. - enteric contrast (will be provided with radiology test) For CT ABD/PEL W IVCON Routine order Administer, As Directed One Time Only, via Oral, Rectal, both Oral and Rectal, Enteric Tube, Stoma or Indwelling Catheter, Enteric Contrast as designated per enteric contrast guidelines - NABUMETONE ORAL Take 500 mg by mouth two times a day. - aspirin 81 mg cap Take 81 mg by mouth once daily. - ondansetron (ZOFRAN) 8 mg tablet Take 1 tablet by mouth every 8 hours as ne (more content not included)... 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 RADIATION SUMMARY: DATES OF TREATMENT: 07-15-2023 to 08-02-2023 AREA TREATED: Paraaortic and Right Pelvic Lymph node region DELIVERED DOSE: Area: Paraaortic and Right Pelvic Lymph node region 2000 cGy in 10 fractions, 2 Rapid VMAT/IMRT Arcs, 10X Area: Paraaortic Boost 1000 cGy in 5 fractions, 2 Rapid VMAT/IMRT Arcs, 10X TOTAL: 3000 cGy in 15 fractions ELAPSED TIME: 18 days. INTERVAL HISTORY: Patient is overall doing well. Nausea has resolved. Appetite fairly good. Energy level improving. He has returned to work. Denies abdominal pain. RADIOLOGY: PET/CT 10/15/2023: HEAD/NECK: * No FDG avid neoplastic process. CHEST: * No FDG avid neoplastic process. ABDOMEN/PELVIS: * No FDG avid neoplastic process. * Resolution of previously noted hypermetabolic aortocaval nodes status post radiation therapy. MUSCULOSKELETAL: * No FDG avid osseous lesion. * Cutaneous/subcutaneous hypermetabolic foci in the perineal and upper thigh regions have nearly completely resolved. A persistent area of hypermetabolic cutaneous thickening is noted in the posteromedial left thigh, likely inflammatory. This area would likely be amenable to evaluation on physical exam. LABORATORY: Latest Reference Range AND Units 10/15/23 12:50 LD 135 - 225 U/L 211 AFP <11.0 ng/mL <3.0 Beta hCG Quant Tumor Marker 0 - 3 IU/L <1 WBC 3.70 - 11.00 k/uL 5.66 RBC 4.20 - 6.00 m/uL 4.32 Hemoglobin 13.0 - 17.0 g/dL 13.2 Hematocrit 39.0 - 51.0 % 37.4 (L) Platelet Count 150 - 400 k/uL 207 MCV 80.0 - 100.0 fL 86.6 MCH 26.0 - 34.0 pg 30.6 MCHC 30.5 - 36.0 g/dL 35.3 MPV 9.0 - 12.7 fL 9.8 RDW-CV 11.5 - 15.0 % 13.0 DTYPE Auto Neut% % 72.7 Abs Neut (ANC) 1.45 - 7.50 k/uL 4.11 Lymph% % 15.5 Abs Lymph 1.00 - 4.00 k/uL 0.88 (L) [place]% % 9.0 Abs [place] <0.87 k/uL 0.51 Eosin% % 1.8 Abs Eosin <0.46 k/uL 0.10 Baso% % 0.5 Abs Baso <0.11 k/uL 0.03 Immature Gran % % 0.5 IMMATURE GRANS (ABS) <0.10 k/uL 0.03 NRBC /100 WBC 0.0 Absolute nRBC <0.01 k/uL <0.01 (L): Data is abnormally low ALLERGIES Allergen Reactions Penicillins Rash Shellfish Containin* Other: See Comments MEDICATIONS: lisinopril-hydroCHLOROthia zide (ZESTORETIC) 20-12.5 mg per tablet Take 2 tablets by mouth every afternoon. Omeprazole 20 mg TbEC Take by mouth. multivit-min/ferrous fumarate (MULTI VITAMIN ORAL) Refill(s) 0 NABUMETONE ORAL Take 500 mg by mouth two times a day. aspirin 81 mg cap Take 81 mg by mouth once daily. ondansetron (ZOFRAN) 8 mg tablet Take 1 tablet by mouth every 8 hours as needed for nausea/vomiting. (Patient not taking: Reported on 10/22/2023) traZODone (DESYREL) 50 mg tablet Take 50 mg by mouth at bedtime as needed. (Patient not taking: Reported on 10/22/2023) Zinc 50 mg tab Take by mouth. (Patient not taking: Reported on 10/22/2023) REVIEW OF SYSTEMS: GENERAL: Negative for weight loss, fevers, chills, or night sweats. HEENT: Negative for sudden vision or hearing changes. NECK: Negative for masses in the neck. RESPIRATORY: Negative for cough or shortness of breath. CARDIAC: Negative for chest pain, palpitations, murmurs, or syncopal episodes. GI: Negative for nausea, vomiting, diarrhea, constipation, blood per rectum, or melena. : Negative for dysuria, hematuria, urgency, frequency or incontinence. MUSCULOSKELETAL: Negative for limitations in movement, pain, or swelling. NEURO: Negative for dizziness, headache, weakness or numbness. HEMATOLOGIC: Negative for bleeding or easy bruising. SKIN: Negative for rashes or other skin changes. PHYSICAL EXAM: VS: BP 137/85 Pulse 76 Temp 36.3 ?C (97.3 ?F) (Temporal) Resp 18 Wt (!) 159 kg (350 lb 8.5 oz) SpO2 95% BMI 48.91 kg/m? KPS: 100 General Appearance: Alert and oriented. No acute distress. HEENT: NCAT. Sclera anicteric. PERRL. EOMI. Neck: Normal ROM. No palpable cervical or supraclavicular adenopathy. Chest: No respiratory distress. Lungs clear to auscultation bilaterally. Heart: Regular rate and rhythm. Abdomen: Soft. Nontender. Nondistended. descended left testicle Musculoskeletal: No edema. Normal ROM in extremities. No bone or spine tenderness. Neuro: Speech flu (more content not included)... Normal [facility] PET+CT Guidance for localiza tion of tumor of Skull base to mid-thigh-- W 18F-FDG Tammi 05-03-2024 IMPRESSION: HEAD/NECK: * No FDG avid neoplastic process. CHEST: * No FDG avid neoplastic process. ABDOMEN/PELVIS: * No FDG avid neoplastic process. * Resolution of previously noted hypermetabolic aortocaval nodes status post radiation therapy. MUSCULOSKELETAL: * No FDG avid osseous lesion. * Cutaneous/subcutaneous hypermetabolic foci in the perineal and upper thigh regions have nearly completely resolved. A persistent area of hypermetabolic cutaneous thickening is noted in the posteromedial left thigh, likely inflammatory. This area would likely be amenable to evaluation on physical exam. Transcribe Date/Time: Oct 18 2023 3:16P Dictated by: ETHAN HAMMER MD This examination was interpreted and the report reviewed and electronically signed by: ETHAN HAMEMR MD on Oct 18 2023 3:32PM EST Thank you for allowing us to participate in the care of your patient. Should there be any questions regarding this interpretation, please call [phone]. If you are unable to reach us at the number above, please feel free to contact [facility] at [phone]. DIVISION OF RADIOLOGY * * *Final Report* * * DATE OF EXAM: Oct 15 2023 3:02PM NRN [id number] - NM PET/CT SKULL-THIGH SUBQ / PROCEDURE REASON: Malignant neoplasm of testicle, unspecified laterality, unspecified whether desc * * * * Physician Interpretation * * * * RESULT: EXAMINATION: BODY FDG PET-CT CLINICAL HISTORY: 48 year old with hx of right testicular cancer s/p right radical orchiectomy, with isolated para-aortic recurrence, s/p radiation therapy completed 08/02/2023. INDICATION: Subsequent treatment strategy. TECHNIQUE: Radiopharmaceutical was administered IV followed about 60 minutes later by PET imaging from eyes to proximal thighs. Free breathing, low dose CT of the same body region was acquired without IV contrast for attenuation correction and anatomic localization. * CT Dose-Length Product (DLP): 637 mGy*cm * CT Dose Reduction Employed: Yes * Blood glucose (mg/dL): 91 * Radiopharmaceutical Dose: 17.4 mCi * Radiopharmaceutical: D60-Mpwoesdcrsmlanyxgq (FDG) COMPARISON: FDG PET/CT 06/07/2023 CORRELATION: No relevant imaging available RESULT: REFERENCES: SUV reference values: * Blood pool (descending aorta) activity: SUVmax 3.1 * Background liver activity: SUVmax 3.8; SUVmean 2.8 Engine Oiler (topogram) images: No additional findings. Notes and limitations: * Standardized uptake values indicate the highest activity concentration (SUVmax) at a given location but can be variable and are not absolute. * Physiologic/non-neoplastic uptake is common in the brain, extraocular muscles, oral cavity, tonsils, salivary glands, vocal cords, myocardium, liver, GI tract, urinary tract, and bone marrow among others. Certain regions and organ systems can have more intense uptake, which could confound or obscure some pathology. * Unenhanced imaging is limited for the evaluation of some pathology and the acquired CT was not designed to produce or replace diagnostic CT scan quality. * PET-CT is often not sensitive for pulmonary nodules less than 8 mm. HEAD AND NECK: Imaged Head: No abnormal uptake. Neck & Lymph Nodes: No abnormal uptake. Thyroid: No abnormal uptake. CHEST: Lungs & Airways: No abnormal uptake. Pleura & Pericardium: No abnormal uptake. Cardiovascular: No abnormal uptake. Mediastinum & Lymph Nodes: No abnormal uptake. Small hiatal hernia. ABDOMEN AND PELVIS: Hepatobiliary: No abnormal uptake. Spleen: No abnormal uptake. Pancreas: No abnormal uptake. Adrenals: No abnormal uptake. Urinary Tract: No abnormal uptake. GI Tract: No abnormal uptake. Peritoneum: No abnormal uptake. Vasculature: No abnormal uptake. Retroperitoneum & Lymph Nodes: No abnormal uptake. Resolution of previously noted hypermetabolic aortocaval nodes status post radiation therapy. Pelvis: No abnormal uptake. Redemonstrated postsurgical changes of right orchiectomy. MUSCULOSKELETAL: Osseous: No abnormal uptake. Degenerative changes. Soft Tissues: No FDG avid osseous lesion. Probable external urinary contamination along the medial upper thighs. Cutaneous/subcutaneous hypermetabolic foci in the perineal and upper thigh regions have nearly completely resolved. A persistent area of hypermetabolic cutaneous thickening is noted in the posteromedial left thigh, measuring SUV max 7.1 (4/394), previous SUV max 7.3. DIVISION OF RADIOLOGY Provider, [facility] - 10/18/2023 * * *Final Report* * * DATE OF EXAM: Oct 15 2023 3:02PM NRN [id number] - NM PET/CT SKULL-THIGH SUBQ / PROCEDURE REASON: Malignant neoplasm of testicle, unspecified laterality, unspecified whether desc * * * * Physician Interpretation * * * * RESULT: EXAMINATION: BODY FDG PET-CT CLINICAL HISTORY: 48 year old with hx of right testicular cancer s/p right radical orchiectomy, with isolated para-aortic recurrence, s/p radiation therapy completed 08/02/2023. INDICATION: Subsequent treatment strategy. TECHNIQUE: Radiopharmaceutical was administered IV followed about 60 minutes later by PET imaging from eyes to proximal thighs. Free breathing, low dose CT of the same body region was acquired without IV contrast for attenuation correction and anatomic localization. * CT Dose-Length Product (DLP): 637 mGy*cm * CT Dose Reduction Employed: Yes * Blood glucose (mg/dL): 91 * Radiopharmaceutical Dose: 17.4 mCi * Radiopharmaceutical: T15-Bsxidcyrwhvxgohzpn (FDG) COMPARISON: FDG PET/CT 06/07/2023 CORRELATION: No relevant imaging available RESULT: REFERENCES: SUV reference values: * Blood pool (descending aorta) activity: SUVmax 3.1 * Background liver activity: SUVmax 3.8; SUVmean 2.8 Engine Oiler (topogram) images: No additional findings. Notes and limitations: * Standardized uptake values indicate the highest activity concentration (SUVmax) at a given location but can be variable and are not absolute. * Physiologic/non-neoplastic uptake is common in the brain, extraocular muscles, oral cavity, tonsils, salivary glands, vocal cords, myocardium, liver, GI tract, urinary tract, and bone marrow among others. Certain regions and organ systems can have more intense uptake, which could confound or obscure some pathology. * Unenhanced imaging is limited for the evaluation of some pathology and the acquired CT was not designed to produce or replace diagnostic CT scan quality. * PET-CT is often not sensitive for pulmonary nodules less than 8 mm. HEAD AND NECK: Imaged Head: No abnormal uptake. Neck & Lymph Nodes: No abnormal uptake. Thyroid: No abnormal uptake. CHEST: Lungs & Airways: No abnormal uptake. Pleura & Pericardium: No abnormal uptake. Cardiovascular: No abnormal uptake. Mediastinum & Lymph Nodes: No abnormal uptake. Small hiatal hernia. ABDOMEN AND PELVIS: Hepatobiliary: No abnormal uptake. Spleen: No abnormal uptake. Pancreas: No abnormal uptake. Adrenals: No abnormal uptake. Urinary Tract: No abnormal uptake. GI Tract: No abnormal uptake. Peritoneum: No abnormal uptake. Vasculature: No abnormal uptake. Retroperitoneum & Lymph Nodes: No abnormal uptake. Resolution of previously noted hypermetabolic aortocaval nodes status post radiation therapy. Pelvis: No abnormal uptake. Redemonstrated postsurgical changes of right orchiectomy. MUSCULOSKELETAL: Osseous: No abnormal uptake. Degenerative changes. Soft Tissues: No FDG avid osseous lesion. Probable external urinary contamination along the medial upper thighs. Cutaneous/subcutaneous hypermetabolic foci in the perineal and upper thigh regions have nearly completely resolved. A persistent area of hypermetabolic cutaneous thickening is noted in the posteromedial left thigh, measuring SUV max 7.1 (4/394), previous SUV max 7.3. IMPRESSION IMPRESSION: HEAD/NECK: * No FDG avid neoplastic process. CHEST: * No FDG avid neoplastic process. ABDOMEN/PELVIS: * No FDG avid neoplastic process. * Resolution of previously noted hypermetabolic aortocaval nodes status post radiation therapy. MUSCULOSKELETAL: * No FDG avid osseous lesion. * Cutaneous/subcutaneous hypermetabolic foci in the perineal and upper thigh regions have nearly completely resolved. A persistent area of hypermetabolic cutaneous thickening is noted in the posteromedial left thigh, likely inflammatory. This area would likely be amenable to evaluation on physical exam. Transcribe Date/Time: Oct 18 2023 3:16P Dictated by: ETHAN HAMMER MD This examination was interpreted and the report reviewed and electronically signed by: ETHAN HAMMER MD on Oct 18 2023 3:32PM EST Thank you for allowing us to participate in the care of your patient. Should there be any questions regarding this interpretation, please call [phone]. If you are unable to reach us at the number above, please feel free to contact [facility] at [phone]. [facility] PET+CT Guidance for localiza tion of tumor of Skull base to mid-thigh-- W 18F-FDG IVOrdered By: Ccf Provider on 10-18-2023 [facility] BETA HCG QUANT TUMOR MARKERo n 10-17-2023 HCG.beta subunit Qn m[IU]/mL [facility] Comment on above: INTERPRETIVE INFORMA TION: Beta hCG, Serum Quantitation Tumor Marker Human chorionic gonadotropin (hCG) is a valuable aid in the management of patients with trophoblastic tumors, nonseminomatous testicular tumors and seminomas when used in conjunction with information available from the clinical evaluation and other diagnostic procedures. Increased serum HCG concentrations have also been observed in melanoma, carcinomas of the breast, gastrointestinal tract, lung, and ovaries, and in benign conditions, including cirrhosis, duodenal ulcer, and inflammatory bowel disease. This result cannot be interpreted as absolute evidence of the presence or absence of malignant disease. This result is not interpretable as a tumor marker in females. The combination of the specific monoclonal antibodies used in the David Beta HCG electrochemiluminescent immunoassay recognize the holo-hormone, nicked forms of hCG, the beta-core fragment, and the free beta-subunit. Results obtained with different test methods or kits cannot be used interchangeably. Although this assay is FDA cleared for use in the detection of , it is not labeled for use as a tumor marker. Access complete set of age- and/or gender-specific reference intervals for this test in the [facility] Test Directory ([facility]). This test was developed and its performance characteristics determined by [facility]. It has not been cleared or approved by the [place] Food and Drug Administration. This test was performed in a CLIA certified laboratory and is intended for clinical purposes. Performed By: [facility] [address] [place] [address] Digital Tech: Cam Archibald MD, PhD CLIA Number: [id number] HCG.beta subunit Qnon 2023 [facility] AFP [Mass/Vol]Ordered By: Piper Carrillo on 10-16-2023 Interpretation and review of laboratory results Normal [facility] ALPHA FETOPROTEIN BLOrdered By: Shaina Carrillo on 10-16-2023 AFP [Mass/Vol] ng/mL NINF - 11.0 ng/mL [facility] Comment on above: Result rechecked. The test is typically used as an aid in managing hepatocellular carcinoma and non-seminomatous testicular cancer when used in conjunction with physical examination, histology, and other clinical evaluation procedures. Normal levels of AFP do not entirely exclude the possibility of the above-mentioned conditions, other malignancies, and chronic liver diseases. The normal range has not been established for newborns. The Alpha-Fetoprotein test was performed using the Siemens Centaur XP chemiluminometric immunoassay method. Results obtained with different assay methods or kits cannot be used interchangeably. AFP SerPl-mCncon 10-15-2023 AFP [Mass/Vol] ng/mL Normal <11.0 [facility] Comment on above: Order Comment: Speci men Type: BLOOD SPECIMENOrdering Facility: [facility] Address: [address] [place] [address] Result Comment: Resu lt rechecked. The test is typically used as an aid in managing hepatocellular carcinoma and non-seminomatous testicular cancer when used in conjunction with physical examination, histology, and other clinical evaluation procedures. Normal levels of AFP do not entirely exclude the possibility of the above-mentioned conditions, other malignancies, and chronic liver diseases. The normal range has not been established for newborns. The Alpha-Fetoprotein test was performed using the Siemens Centaur XP chemiluminometric immunoassay method. Results obtained with different assay methods or kits cannot be used interchangeably. Performed By: #### 1 [id number] ####[facility] LABCLIA [id number] [place] [address] [place] BETA HCG QUANT TUMOR MARKERo n 10-15-2023 BETA HCG QUANT TUMOR MARKER <1 Normal 0-3 [facility] Comment on above: Order Comment: Speci men Type: BLOOD SPECIMENOrdering Facility: [facility] Address: [address] [place] [address] Result Comment: INTE RPRETIVE INFORMATION: Beta hCG, Serum Quantitation Tumor Marker Human chorionic gonadotropin (hCG) is a valuable aid in the management of patients with trophoblastic tumors, nonseminomatous testicular tumors and seminomas when used in conjunction with information available from the clinical evaluation and other diagnostic procedures. Increased serum HCG concentrations have also been observed in melanoma, carcinomas of the breast, gastrointestinal tract, lung, and ovaries, and in benign conditions, including cirrhosis, duodenal ulcer, and inflammatory bowel disease. This result cannot be interpreted as absolute evidence of the presence or absence of malignant disease. This result is not interpretable as a tumor marker in females. The combination of the specific monoclonal antibodies used in the David Beta HCG electrochemiluminescent immunoassay recognize the holo-hormone, nicked forms of hCG, the beta-core fragment, and the free beta-subunit. Results obtained with different test methods or kits cannot be used interchangeably. Although this assay is FDA cleared for use in the detection of , it is not labeled for use as a tumor marker. Access complete set of age- and/or gender-specific reference intervals for this test in the [facility] ([facility]). This test was developed and its performance characteristics determined by [employer]. It has not been cleared or approved by the US Food and Drug Administration. This test was performed in a CLIA certified laboratory and is intended for clinical purposes. Performed By: [facility] [employer] [address] [place] [address] Digital Tech: Cam Archibald MD, PhD CLIA Number: [id number] Performed By: #### B HCG ####[facility] [id number] [place] [id number] CBC W Auto Differential pane l (Bld)on 10-15-2023 Basophils (Bld) [#/Vol] 0.03 10*3/uL [facility] Basophils/100 WBC (Bld) 0.5 % [facility] Differential cell count method Nom (Bld) Auto [facility] Eosinophils (Bld) [#/Vol] 0.10 10*3/uL [facility] Eosinophils/100 WBC (Bld) 1.8 % [facility] Erythrocyte distribution width (RBC) [Ratio] 13.0 % 11.5 - 15.0 % [facility] Hematocrit (Bld) [Volume fraction] 37.4 % Low 39.0 - 51.0 % [facility] Hemoglobin (Bld) [Mass/Vol] 13.2 g/dL 13.0 - 17.0 g/dL [facility] Immature granulocytes (Bld) [#/Vol] 0.03 10*3/uL [facility] Immature granulocytes/100 WBC (Bld) 0.5 % [facility] Interpretation and review of laboratory results Abnormal [facility] Lymphocytes (Bld) [#/Vol] 0.88 10*3/uL Low [facility] Lymphocytes/100 WBC (Bld) 15.5 % [facility] MCH (RBC) [Entitic mass] 30.6 pg 26.0 - 34.0 pg [facility] MCHC (RBC) [Mass/Vol] 35.3 g/dL 30.5 - 36.0 g/dL [facility] MCV (RBC) [Entitic vol] 86.6 fL 80.0 - 100.0 fL [facility] Monocytes (Bld) [#/Vol] 0.51 10*3/uL [facility] Monocytes/100 WBC (Bld) 9.0 % [facility] Neutrophils (Bld) [#/Vol] 4.11 10*3/uL [facility] Neutrophils/100 WBC (Bld) 72.7 % [facility] Nucleated RBC (Bld) [#/Vol] NINF [facility] Nucleated RBC/100 WBC (Bld) [Ratio] 0.0 % /100 WBC [facility] Platelet mean volume (Bld) [Entitic vol] 9.8 fL 9.0 - 12.7 fL [facility] Platelets (Bld) [#/Vol] 207 10*3/uL [facility] RBC (Bld) [#/Vol] 4.32 10*6/uL 4.20 - 6.0 0 m/uL [facility] WBC (Bld) [#/Vol] 5.66 10*3/uL [facility] Basophils (Bld) [#/Vol] 0.03 10*3/uL Normal <0.11 [facility] Comment on above: Order Comment: Speci men Type: BLOOD SPECIMENOrdering Facility: [facility] Address: [address] [place] [address] Performed By: #### 5 7021-8 ####[facility] LABCLIA [id number] [place] [address] Basophils/100 WBC (Bld) 0.5 % Normal [facility] Comment on above: Order Comment: Speci men Type: BLOOD SPECIMENOrdering Facility: [facility] Address: [address] [place] [address] Performed By: #### 5 7021-8 ####[facility] LABCLIA [id number] [place] [address] Differential cell count method Nom (Bld) Auto Normal [facility] Comment on above: Order Comment: Speci men Type: BLOOD SPECIMENOrdering Facility: [facility] Address: [address] [place] [address] Performed By: #### 5 7021-8 ####[facility] LABCLIA [id number] [place] [address] Eosinophils (Bld) [#/Vol] 0.10 10*3/uL Normal <0.46 [facility] Comment on above: Order Comment: Speci men Type: BLOOD SPECIMENOrdering Facility: [facility] Address: [address] [place] [address] Performed By: #### 5 7021-8 ####[facility] LABCLIA [id number] [place] [address] Eosinophils/100 WBC (Bld) 1.8 % Normal [facility] Comment on above: Order Comment: Speci men Type: BLOOD SPECIMENOrdering Facility: [facility] Address: [address] [place] [address] Performed By: #### 5 7021-8 ####[facility] LABCLIA [id number] [place] [address] Erythrocyte distribution width (RBC) [Ratio] 13.0 % Normal 11.5-15.0 [facility] Comment on above: Order Comment: Speci men Type: BLOOD SPECIMENOrdering Facility: [facility] Address: [address] [place] [address] Performed By: #### 5 7021-8 ####[facility] LABCLIA [id number] [place] [address] Hematocrit (Bld) [Volume fraction] 37.4 % Low 39.0-51.0 [facility] Comment on above: Order Comment: Speci men Type: BLOOD SPECIMENOrdering Facility: [facility] Address: [address] [place] [address] Performed By: #### 5 7021-8 ####[facility] LABCLIA [id number] [place] [address] Hemoglobin (Bld) [Mass/Vol] 13.2 g/dL Normal 13.0-17.0 [facility] Comment on above: Order Comment: Speci men Type: BLOOD SPECIMENOrdering Facility: [facility] Address: [address] [place] [address] Performed By: #### 5 7021-8 ####[facility] LABCLIA [id number] [place] [address] Immature granulocytes (Bld) [#/Vol] 0.03 10*3/uL Normal <0.10 [facility] Comment on above: Order Comment: Speci men Type: BLOOD SPECIMENOrdering Facility: [facility] Address: [address] [place] [address] Performed By: #### 5 7021-8 ####[facility] LABCLIA [id number] [place] [address] Immature granulocytes/100 WBC (Bld) 0.5 % Normal [facility] Comment on above: Order Comment: Speci men Type: BLOOD SPECIMENOrdering Facility: [facility] Address: [address] [place] [address] Performed By: #### 5 7021-8 ####[facility] LABCLIA [id number] [place] [address] Lymphocytes (Bld) [#/Vol] 0.88 10*3/uL Low 1.00-4.00 [facility] Comment on above: Order Comment: Speci men Type: BLOOD SPECIMENOrdering Facility: [facility] Address: [address] [place] [address] Performed By: #### 5 7021-8 ####[facility] LABCLIA [id number] [place] [address] Lymphocytes/100 WBC (Bld) 15.5 % Normal [facility] Comment on above: Order Comment: Speci men Type: BLOOD SPECIMENOrdering Facility: [facility] Address: [address] [place] [address] Performed By: #### 5 7021-8 ####[facility] LABCLIA [id number] [place] [address] MCH (RBC) [Entitic mass] 30.6 pg Normal 26.0-34.0 [facility] Comment on above: Order Comment: Speci men Type: BLOOD SPECIMENOrdering Facility: [facility] Address: [address] [place] [address] Performed By: #### 5 7021-8 ####[facility] LABCLIA [id number] [place] [address] MCHC (RBC) [Mass/Vol] 35.3 g/dL Normal 30.5-36.0 [facility] Comment on above: Order Comment: Speci men Type: BLOOD SPECIMENOrdering Facility: [facility] Address: [address] [place] [address] Performed By: #### 5 7021-8 ####[facility] LABCLIA [id number] [place] [address] MCV (RBC) [Entitic vol] 86.6 fL Normal 80.0-100.0 [facility] Comment on above: Order Comment: Speci men Type: BLOOD SPECIMENOrdering Facility: [facility] Address: [address] [place] [address] Performed By: #### 5 7021-8 ####[facility] LABCLIA [id number] [place] [address] Monocytes (Bld) [#/Vol] 0.51 10*3/uL Normal <0.87 [facility] Comment on above: Order Comment: Speci men Type: BLOOD SPECIMENOrdering Facility: [facility] Address: [address] [place] [address] Performed By: #### 5 7021-8 ####[facility] LABCLIA [id number] [place] [address] Monocytes/100 WBC (Bld) 9.0 % Normal [facility] Comment on above: Order Comment: Speci men Type: BLOOD SPECIMENOrdering Facility: [facility] Address: [address] [place] [address] Performed By: #### 5 7021-8 ####[facility] LABCLIA [id number] [place] [address] Neutrophils (Bld) [#/Vol] 4.11 10*3/uL Normal 1.45-7.50 [facility] Comment on above: Order Comment: Speci men Type: BLOOD SPECIMENOrdering Facility: [facility] Address: [address] [place] [address] Performed By: #### 5 7021-8 ####[facility] LABCLIA [id number] [place] [address] Neutrophils/100 WBC (Bld) 72.7 % Normal [facility] Comment on above: Order Comment: Speci men Type: BLOOD SPECIMENOrdering Facility: [facility] Address: [address] [place] [address] Performed By: #### 5 7021-8 ####[facility] LABCLIA [id number] [place] [address] Nucleated RBC (Bld) [#/Vol] 10*3/uL Normal <0.01 [facility] Comment on above: Order Comment: Speci men Type: BLOOD SPECIMENOrdering Facility: [facility] Address: [address] [place] [address] Performed By: #### 5 7021-8 ####[facility] LABCLIA [id number] [place] [address] Nucleated RBC/100 WBC (Bld) [Ratio] 0.0 /100 WBC Normal [facility] Comment on above: Order Comment: Speci men Type: BLOOD SPECIMENOrdering Facility: [facility] Address: [address] [place] [address] Performed By: #### 5 7021-8 ####[facility] LABCLIA [id number] [place] [address] Platelet mean volume (Bld) [Entitic vol] 9.8 fL Normal 9.0-12.7 [facility] Comment on above: Order Comment: Speci men Type: BLOOD SPECIMENOrdering Facility: [facility] Address: [address] [place] [address] Performed By: #### 5 7021-8 ####[facility] LABCLIA [id number] [place] [address] Platelets (Bld) [#/Vol] 207 10*3/uL Normal 150-400 [facility] Comment on above: Order Comment: Speci men Type: BLOOD SPECIMENOrdering Facility: [facility] Address: [address] [place] [address] Performed By: #### 5 7021-8 ####[facility] LABIA [id number] [place] [address] RBC (Bld) [#/Vol] 4.32 10*6/uL Normal 4.20-6.00 [facility] Comment on above: Order Comment: Speci men Type: BLOOD SPECIMENOrdering Facility: [facility] Address: [address] [place] [address] Performed By: #### 5 7021-8 ####[facility] LABIA [id number] [place] [address] WBC (Bld) [#/Vol] 5.66 10*3/uL Normal 3.70-11.00 [facility] Comment on above: Order Comment: Speci men Type: BLOOD SPECIMENOrdering Facility: [facility] Address: [address] [place] [address] Performed By: #### 5 7021-8 ####[facility] LABIA [id number] [place] [address] GLUCOSE, BLOOD (POC)on 10-14 Glucose [Mass/Vol] 91 mg/dL 74 - 99 mg/dL [facility] Comment on above: Location:[facility], [address] , [place], [place], [address] The Accu-Chek Inform II glucose meter has not been approved for testing on patients receiving intensive medical intervention or therapy and results from this point of care glucose test should not be used for patient management decisions in these cases. Inaccurate results may also occur from other interfering factors, such as N-acetylcysteine (blood concentrations of greater than 5mg/dL), galactose, extremes of hematocrit (<10 or >65), or high doses of ascorbic acid (vitamin C) greater than 3mg/dL. Consider alternate testing mechanisms (e.g. core lab, blood gas instrument) in the above situations. [facility] LD LACTATE DEHYDROOrdered By : Stephanie Abbott on 10-15-2023 LDH [Catalytic activity/Vol] 211 U/L 135 - 225 U/L [facility] Comment on above: Hemolysis present. T he origin of the hemolysis, in vitro versus an in vivo hemolytic process, cannot be distinguished via this assay alone. In vitro hemolysis may lead to non-physiological (spurious) elevation in lactate dehydrogenase (LDH) results. The result should be interpreted in context of the clinical setting and other test results. Suggest reorder as clinically indicated. LDH SerPl-cCncon 10-15-2023 LDH [Catalytic activity/Vol] 211 U/L Normal 135-225 [facility] Comment on above: Order Comment: Speci men Type: BLOOD SPECIMENOrdering Facility: [facility] Address: [address] [place] [address] Result Comment: Hemo lysis present. The origin of the hemolysis, in vitro versus an in vivo hemolytic process, cannot be distinguished via this assay alone. In vitro hemolysis may lead to non-physiological (spurious) elevation in lactate dehydrogenase (LDH) results. The result should be interpreted in context of the clinical setting and other test results. Suggest reorder as clinically indicated. Performed By: #### 2 532-0 ####[facility] LABCLIA [id number] [place] [address] LDH [Catalytic activity/Vol] Ordered By: Stephanie Abbott on 10-15-2023 Interpretation and review of laboratory results Normal [facility] PET/CT SKULL-THIGH SUBQon 10-15-2023 NM PET/CT SKULL-THIGH SUBQ * * *Final Report* * * DATE OF EXAM: Oct 15 2023 3:02PM NRN 0063 - NM PET/CT SKULL-THIGH SUBQ / PROCEDURE REASON: Malignant neoplasm of testicle, unspecified laterality, unspecified whether desc * * * * Physician Interpretation * * * * RESULT: EXAMINATION: BODY FDG PET-CT CLINICAL HISTORY: 48 year old with hx of right testicular cancer s/p right radical orchiectomy, with isolated para-aortic recurrence, s/p radiation therapy completed 08/02/2023. INDICATION: Subsequent treatment strategy. TECHNIQUE: Radiopharmaceutical was administered IV followed about 60 minutes later by PET imaging from eyes to proximal thighs. Free breathing, low dose CT of the same body region was acquired without IV contrast for attenuation correction and anatomic localization. * CT Dose-Length Product (DLP): 637 mGy*cm * CT Dose Reduction Employed: Yes * Blood glucose (mg/dL): 91 * Radiopharmaceutical Dose: 17.4 mCi * Radiopharmaceutical: F75-Zxbqgopclphjnprmre (FDG) COMPARISON: FDG PET/CT 06/07/2023 CORRELATION: No relevant imaging available RESULT: REFERENCES: SUV reference values: * Blood pool (descending aorta) activity: SUVmax 3.1 * Background liver activity: SUVmax 3.8; SUVmean 2.8 Engine Oiler (topogram) images: No additional findings. Notes and limitations: * Standardized uptake values indicate the highest activity concentration (SUVmax) at a given location but can be variable and are not absolute. * Physiologic/non-neoplastic uptake is common in the brain, extraocular muscles, oral cavity, tonsils, salivary glands, vocal cords, myocardium, liver, GI tract, urinary tract, and bone marrow among others. Certain regions and organ systems can have more intense uptake, which could confound or obscure some pathology. * Unenhanced imaging is limited for the evaluation of some pathology and the acquired CT was not designed to produce or replace diagnostic CT scan quality. * PET-CT is often not sensitive for pulmonary nodules less than 8 mm. HEAD AND NECK: Imaged Head: No abnormal uptake. Neck and Lymph Nodes: No abnormal uptake. Thyroid: No abnormal uptake. CHEST: Lungs and Airways: No abnormal uptake. Pleura and Pericardium: No abnormal uptake. Cardiovascular: No abnormal uptake. Mediastinum and Lymph Nodes: No abnormal uptake. Small hiatal hernia. ABDOMEN AND PELVIS: Hepatobiliary: No abnormal uptake. Spleen: No abnormal uptake. Pancreas: No abnormal uptake. Adrenals: No abnormal uptake. Urinary Tract: No abnormal uptake. GI Tract: No abnormal uptake. Peritoneum: No abnormal uptake. Vasculature: No abnormal uptake. Retroperitoneum and Lymph Nodes: No abnormal uptake. Resolution of previously noted hypermetabolic aortocaval nodes status post radiation therapy. Pelvis: No abnormal uptake. Redemonstrated postsurgical changes of right orchiectomy. MUSCULOSKELETAL: Osseous: No abnormal uptake. Degenerative changes. Soft Tissues: No FDG avid osseous lesion. Probable external urinary contamination along the medial upper thighs. Cutaneous/subcutaneous hypermetabolic foci in the perineal and upper thigh regions have nearly completely resolved. A persistent area of hypermetabolic cutaneous thickening is noted in the posteromedial left thigh, measuring SUV max 7.1 (4/394), previous SUV max 7.3. IMPRESSION: HEAD/NECK: * No FDG avid neoplastic process. CHEST: * No FDG avid neoplastic process. ABDOMEN/PELVIS: * No FDG avid neoplastic process. * Resolution of previously noted hypermetabolic aortocaval nodes status post radiation therapy. MUSCULOSKELETAL: * No FDG avid osseous lesion. * Cutaneous/subcutaneous hypermetabolic foci in the perineal and upper thigh regions have nearly completely resolved. A persistent area of hypermetabolic cutaneous thickening is noted in the posteromedial left thigh, likely inflammatory. This area would likely be amenable to evaluation on physical exam. Transcribe Date/Time: Oct 18 2023 3:16P Dictated by: ETHAN HAMMER MD This examination was interpreted and the report reviewed and electronically signed by: ETHAN HAMMER MD on Oct 18 2023 3:32PM EST Thank you for allowing us to participate in the care of your patient. Should there be any questions regarding this interpretation, please call [phone]. If you are unable to reach us at the number above, please feel free to contact [facility] eRadiology at [phone]. [id number] Normal [facility] PET+CT Guidance for localiza tion of tumor of Skull base to mid-thigh-- W 18F-FDG Tammi 10-15-2023 Radiology Study observation (narrative) [facility] Consultation Noteon 08-19-19 Consultation Note [id number] [facility] CNOVon 08-13-2023 CNOV Office Visit (RADTSA ) -- JORDAN BENNETT ([id number]) 1975 M Date Time Provider Department 08/13/23 3:00 PM Dimitry JASSO During your visit today, we recorded the following information about you: Temperature Pulse Respiration Blood pressure 97.1 degrees 73/minute 18/minute 141/86 Weight 155.4 kg Dimitry Jasso MD 08/16/2023 10:11 AM Signed Radiation Oncology - Follow Up Note PATIENT NAME: Jordan Bennett PATIENT DIAGNOSIS: Testicular cancer, right, 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 RADIATION SUMMARY: DATES OF TREATMENT: 07-15-2023 to 08-02-2023 AREA TREATED: Paraaortic and Right Pelvic Lymph node region DELIVERED DOSE: Area: Paraaortic and Right Pelvic Lymph node region 2000 cGy in 10 fractions, 2 Rapid VMAT/IMRT Arcs, 10X Area: Paraaortic Boost 1000 cGy in 5 fractions, 2 Rapid VMAT/IMRT Arcs, 10X TOTAL: 3000 cGy in 15 fractions ELAPSED TIME: 18 days. INTERVAL HISTORY: Patient is overall doing well. Nausea has resolved. Appetite fairly good. Energy level improving. He has returned to work. Denies abdominal pain. ALLERGIES Allergen Reactions Penicillins Rash Shellfish Containin* Other: See Comments MEDICATIONS: ondansetron (ZOFRAN) 8 mg tablet Take 1 tablet by mouth every 8 hours as needed for nausea/vomiting. lisinopril-hydroCHLOROthia zide (ZESTORETIC) 20-12.5 mg per tablet Take 2 tablets by mouth every afternoon. traZODone (DESYREL) 50 mg tablet Take 50 mg by mouth at bedtime as needed. Omeprazole 20 mg TbEC Take by mouth. multivit-min/ferrous fumarate (MULTI VITAMIN ORAL) Refill(s) 0 Zinc 50 mg tab Take by mouth. REVIEW OF SYSTEMS: GENERAL: Negative for weight loss, fevers, chills, or night sweats. HEENT: Negative for sudden vision or hearing changes. NECK: Negative for masses in the neck. RESPIRATORY: Negative for cough or shortness of breath. CARDIAC: Negative for chest pain, palpitations, murmurs, or syncopal episodes. GI: Negative for nausea, vomiting, diarrhea, constipation, blood per rectum, or melena. : Negative for dysuria, hematuria, urgency, frequency or incontinence. MUSCULOSKELETAL: Negative for limitations in movement, pain, or swelling. NEURO: Negative for dizziness, headache, weakness or numbness. HEMATOLOGIC: Negative for bleeding or easy bruising. SKIN: Negative for rashes or other skin changes. PHYSICAL EXAM: VS: BP 141/86 Pulse 73 Temp 36.2 ?C (97.1 ?F) Resp 18 Wt (!) 155.4 kg (342 lb 9.5 oz) SpO2 97% BMI 47.80 kg/m? KPS: 100 General Appearance: Alert and oriented. No acute distress. HEENT: NCAT. Sclera anicteric. PERRL. EOMI. Neck: Normal ROM. No palpable cervical or supraclavicular adenopathy. Chest: No respiratory distress. Lungs clear to auscultation bilaterally. Heart: Regular rate and rhythm. Abdomen: Soft. Nontender. Nondistended. descended left testicle Musculoskeletal: No edema. Normal ROM in extremities. No bone or spine tenderness. Neuro: Speech fluent. Gait normal. No focal deficits. Skin: No rashes noted Lymphatics: No palpable lymphadenopathy. 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 Patient doing very well after recent para-aortic and right hemipelvic radiation. Recommend initial posttreatment imaging with PET scan which be ordered in 2 months. Patient will continue follow-up with medical oncology/Dr. Peters which will be scheduled. Signed by: Dimitry Jasso MD cc: Ashli Ni DO [address] [phone] Gavin Arnett LPN 10/15/2023 11:25 AM Signed Addended by: GAVIN REA on: 10/15/2023 11:25 AM Modules accepted: Orders Allergies As of Date: 08/13/2023 Noted Allergy Reaction PENICILLINS 08/23/2021 2 - Rash SHELLFISH CONTAINING PRODUCTS 08/23/2021 14 - Other: See Comments Date Reviewed: 08/13/2023 Reviewed by: Radha Skinner, RN - Fully Assessed Reason for Visit: Post Radiation Treatment Follow Up [[id number]] Primary Visit Diagnosis:Malignant neoplasm of testicle, unspecified laterality, 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] Order(s):NM PET/CT SKULL-THIGH SUBSEQUENT [[id number]] Order #: [id number] FUTURE CBC + DIFF [SQCBCDIF] Order #: [id number] FUTURE LD LACTATE DEHYDRO [SQLD6] Order #: [id number] FUTURE BETA HCG QUANT TUMOR MARKER [SQBHCG] Order #: [id number] FUTURE ALPHA FETOPROTEIN BL [SQAFP] Order #: [id number] FUTURE CBC + DIFF [SQCBCDIF] Order #: [id number] FUT (more content not included)... Normal [facility] CNPDanielle 08-09-2023 CNPN Telephone ([facility]) -- JORDAN BENNETT ([id number]) 1975 M Date Time Provider Department 08/09/23 JORDAN PETERS During your visit today, we recorded the following information about you: Jamie Doll 08/09/2023 9:48 AM Signed Per radiation: Cancel Dr Delacruz appt for 08/08 - further arrangements will be made after patient sees Dr. Jasso again. Jamie Doll Allergies As of Date: 08/09/2023 Noted Allergy Reaction PENICILLINS 08/23/2021 2 - Rash SHELLFISH CONTAINING PRODUCTS 08/23/2021 14 - Other: See Comments Date Reviewed: 07/29/2023 Reviewed by: Gavin Rea LPN - Fully Assessed Reason for Visit: Future Appointment [256] Prescriptions as of 08/09/2023 - ondansetron (ZOFRAN) 8 mg tablet Take 1 tablet by mouth every 8 hours as needed for nausea/vomiting. - lisinopril-hydroCHLOROthia zide (ZESTORETIC) 20-12.5 mg per tablet Take 2 tablets by mouth every afternoon. - traZODone (DESYREL) 50 mg tablet Take 50 mg by mouth at bedtime as needed. - Omeprazole 20 mg TbEC Take by mouth. - multivit-min/ferrous fumarate (MULTI VITAMIN ORAL) Refill(s) 0 - Zinc 50 mg tab Take by mouth. Problem List As Of Date 08/09/2023 Noted Resolved Seminoma of descended right testis (HCC) [C62.1*02/14/2023 Encounter Status:Closed by JAMIE DOLL on 08/09/23 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 COURSE: definitive Current dose: 2200 cGy in 11 fx Planned dose: 3000 cGy in 15 fx SUBJECTIVE: Doing well. Some fatigue. Nausea improved on 3 times daily Zofran dosing. PHYSICAL EXAM: 07/29/23 0954 BP: (P) 131/86 Pulse: (P) 65 Resp: (P) 16 Temp: (P) 36.2 ?C (97.2 ?F) SpO2: (P) 96% Weight: (!) (P) 159.6 kg (351 lb 13.7 oz) KPS: 100 General Appearance: Alert and oriented. No acute distress. IMAGING/LAB RESULTS: Hemoglobin (g/dL) Date Value 07/25/2023 15.5 Hematocrit (%) Date Value 07/25/2023 44.7 WBC (k/uL) Date Value 07/25/2023 3.85 Platelet Count (k/uL) Date Value 07/25/2023 200 TOXICITY ASSESSMENT (CTC v4.0): Fatigue:grade 1 Radiation Dermatitis: grade 0 - No symptoms Diarrhea:grade 0 - No symptoms Nausea:1-2 Treatment chart checked: Yes Patient treatment site reviewed and verified:Yes Port films reviewed and current:Yes Medications started: None ASSESSMENT/PLAN: Patient doing well. Continue Zofran prior to treatment. Chart and imaging reviewed. Continue radiation as outlined. He will finish on Saturday. Follow-up care discussed. Dimitry Jasso MD Allergies As of Date: 07/29/2023 Noted Allergy Reaction PENICILLINS 08/23/2021 2 - Rash SHELLFISH CONTAINING PRODUCTS 08/23/2021 14 - Other: See Comments Date Reviewed: 07/29/2023 Reviewed by: Gavin Rea LPN - Fully Assessed Reason for Visit: Radiotherapy On-treatment Visit [1722] Primary Visit Diagnosis:Malignant neoplasm of testicle, unspecified laterality, 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] Prescriptions as of 07/29/2023 - ondansetron (ZOFRAN) 8 mg tablet Take 1 tablet by mouth every 8 hours as needed for nausea/vomiting. - lisinopril-hydroCHLOROthia zide (ZESTORETIC) 20-12.5 mg per tablet Take 2 tablets by mouth every afternoon. - traZODone (DESYREL) 50 mg tablet Take 50 mg by mouth at bedtime as needed. - Omeprazole 20 mg TbEC Take by mouth. - multivit-min/ferrous fumarate (MULTI VITAMIN ORAL) Refill(s) 0 - Zinc 50 mg tab Take by mouth. Problem List As Of Date 07/29/2023 Noted Resolved Seminoma of descended right testis (HCC) [C62.1*02/14/2023 Encounter Status:Closed by Dimitry JASSO on 07/29/23 [facility] 07-26-2023 [facility] Telephone (RADTSA) -- JORDAN BENNETT ([id number]) 1975 M Date Time Provider Department 07/26/23 Dimitry JASSO [employer] During your visit today, we recorded the following information about you: Gavin Rea LPN 07/26/2023 10:55 AM Signed Sudhir pt's spouse, left a message stating [facility] has not received prior authorization for the new Zofran prescription sent yesterday. [facility] was told they received the authorization this a.m. but patient's insurance will not allow a refill until 07/31/23 even with a new prescription and increased frequency instructions. [facility] Pharmacists/Dr. Kelly: Do you have any recommendations? Dr. Kelly to possibly prescribe compazine in the interim? Thanks NESSA AlonsoEboni, [facility] 07/26/2023 12:10 PM Signed I called [facility] and obtained an override so the patient is able to fill the Ondansetron for 90 today. Gavin Rea LPN 07/26/2023 12:13 PM Signed I notified Sudhir that [employer] obtained an override from the insurance and they should be able to package pick up the original prescription from [facility] [employer]. Sudhir is very thankful for the extra work created in getting this prescription approved. Gavin Rea RN Allergies As of Date: 07/26/2023 Noted Allergy Reaction PENICILLINS 08/23/2021 2 - Rash SHELLFISH CONTAINING PRODUCTS 08/23/2021 14 - Other: See Comments Date Reviewed: 07/22/2023 Reviewed by: Gavin Rea LPN - Fully Assessed Reason for Visit: Medication Problem [65] Prescriptions as of 07/26/2023 - ondansetron (ZOFRAN) 8 mg tablet Take 1 tablet by mouth every 8 hours as needed for nausea/vomiting. - lisinopril-hydroCHLOROthia zide (ZESTORETIC) 20-12.5 mg per tablet Take 2 tablets by mouth every afternoon. - traZODone (DESYREL) 50 mg tablet Take 50 mg by mouth at bedtime as needed. - Omeprazole 20 mg TbEC Take by mouth. - multivit-min/ferrous fumarate (MULTI VITAMIN ORAL) Refill(s) 0 - Zinc 50 mg tab Take by mouth. Problem List As Of Date 07/26/2023 Noted Resolved Seminoma of descended right testis (HCC) [C62.1*02/14/2023 Encounter Status:Closed by GAVIN REA on 07/26/23 Normal [facility] CBC W Auto Differential pane l (Bld)on 07-25-2023 Basophils (Bld) [#/Vol] <0.11 k/uL [facility] Basophils/100 WBC (Bld) 0.5 % [facility] Differential cell count method Nom (Bld) Auto [facility] Eosinophils (Bld) [#/Vol] 0.12 10*3/uL <0.46 k/uL [facility] Eosinophils/100 WBC (Bld) 3.1 % [facility] Erythrocyte distribution width (RBC) [Ratio] 12.2 % 11.5 - 15.0 % [facility] Hematocrit (Bld) [Volume fraction] 44.7 % 39.0 - 51.0 % [facility] Hemoglobin (Bld) [Mass/Vol] 15.5 g/dL 13.0 - 17.0 g/dL [facility] Immature granulocytes (Bld) [#/Vol] <0.10 k/uL [facility] Immature granulocytes/100 WBC (Bld) 0.5 % [facility] Lymphocytes (Bld) [#/Vol] 0.54 10*3/uL Low 1.00 - 4.00 k/uL [facility] Lymphocytes/100 WBC (Bld) 14.0 % [facility] MCH (RBC) [Entitic mass] 29.2 pg 26.0 - 34.0 pg [facility] MCHC (RBC) [Mass/Vol] 34.7 g/dL 30.5 - 36.0 g/dL [facility] MCV (RBC) [Entitic vol] 84.2 fL 80.0 - 100.0 fL [facility] Monocytes (Bld) [#/Vol] 0.34 10*3/uL <0.87 k/uL [facility] Monocytes/100 WBC (Bld) 8.8 % [facility] Neutrophils (Bld) [#/Vol] 2.81 10*3/uL 1.45 - 7.50 k/uL [facility] Neutrophils/100 WBC (Bld) 73.1 % [facility] Nucleated RBC (Bld) [#/Vol] <0.01 k/uL [facility] Nucleated RBC/100 WBC (Bld) [Ratio] 0.0 /100 WBC [facility] Platelet mean volume (Bld) [Entitic vol] 10.1 fL 9.0 - 12.7 fL [facility] Platelets (Bld) [#/Vol] 200 10*3/uL 150 - 400 k/uL [facility] RBC (Bld) [#/Vol] 5.31 10*6/uL 4.20 - 6.0 0 m/uL [facility] WBC (Bld) [#/Vol] 3.85 10*3/uL 3.70 - 11.00 k/uL [facility] Basophils (Bld) [#/Vol] 10*3/uL Normal <0.11 [facility] Comment on above: Order Comment: Speci men Type: BLOOD SPECIMENOrdering Facility: [facility] Address: [address] [place] [address] Performed By: #### 5 7021-8 ####[facility] LABCLIA [id number] [place] [address] Basophils/100 WBC (Bld) 0.5 % Normal [facility] Comment on above: Order Comment: Speci men Type: BLOOD SPECIMENOrdering Facility: [facility] Address: [address] [place] [address] Performed By: #### 5 7021-8 ####[facility] LABCLIA [id number] [place] [address] Differential cell count method Nom (Bld) Auto Normal [facility] Comment on above: Order Comment: Speci men Type: BLOOD SPECIMENOrdering Facility: [facility] Address: [address] [place] [address] Performed By: #### 5 7021-8 ####[facility] LABCLIA [id number] [place] [address] Eosinophils (Bld) [#/Vol] 0.12 10*3/uL Normal <0.46 [facility] Comment on above: Order Comment: Speci men Type: BLOOD SPECIMENOrdering Facility: [facility] Address: [address] [place] [address] Performed By: #### 5 7021-8 ####[facility] LABCLIA [id number] [place] [address] Eosinophils/100 WBC (Bld) 3.1 % Normal [facility] Comment on above: Order Comment: Speci men Type: BLOOD SPECIMENOrdering Facility: [facility] Address: [address] [place] [address] Performed By: #### 5 7021-8 ####[facility] LABCLIA [id number] [place] [address] Erythrocyte distribution width (RBC) [Ratio] 12.2 % Normal 11.5-15.0 [facility] Comment on above: Order Comment: Speci men Type: BLOOD SPECIMENOrdering Facility: [facility] Address: [address] [place] [address] Performed By: #### 5 7021-8 ####[facility] LABCLIA [id number] [place] [address] Hematocrit (Bld) [Volume fraction] 44.7 % Normal 39.0-51.0 [facility] Comment on above: Order Comment: Speci men Type: BLOOD SPECIMENOrdering Facility: [facility] Address: [address] [place] [address] Performed By: #### 5 7021-8 ####[facility] LABCLIA [id number] [place] [address] Hemoglobin (Bld) [Mass/Vol] 15.5 g/dL Normal 13.0-17.0 [facility] Comment on above: Order Comment: Speci men Type: BLOOD SPECIMENOrdering Facility: [facility] Address: [address] [place] [address] Performed By: #### 5 7021-8 ####[facility] LABCLIA [id number] [place] [address] Immature granulocytes (Bld) [#/Vol] 10*3/uL Normal <0.10 [facility] Comment on above: Order Comment: Speci men Type: BLOOD SPECIMENOrdering Facility: [facility] Address: [address] [place] [address] Performed By: #### 5 7021-8 ####[facility] LABCLIA [id number] [place] [address] Immature granulocytes/100 WBC (Bld) 0.5 % Normal [facility] Comment on above: Order Comment: Speci men Type: BLOOD SPECIMENOrdering Facility: [facility] Address: [address] [place] [address] Performed By: #### 5 7021-8 ####[facility] LABCLIA [id number] [place] [address] Lymphocytes (Bld) [#/Vol] 0.54 10*3/uL Low 1.00-4.00 [facility] Comment on above: Order Comment: Speci men Type: BLOOD SPECIMENOrdering Facility: [facility] Address: [address] [place] [address] Performed By: #### 5 7021-8 ####[facility] LABCLIA [id number] [place] [address] Lymphocytes/100 WBC (Bld) 14.0 % Normal [facility] Comment on above: Order Comment: Speci men Type: BLOOD SPECIMENOrdering Facility: [facility] Address: [address] [place] [address] Performed By: #### 5 7021-8 ####[facility] LABCLIA [id number] [place] [address] MCH (RBC) [Entitic mass] 29.2 pg Normal 26.0-34.0 [facility] Comment on above: Order Comment: Speci men Type: BLOOD SPECIMENOrdering Facility: [facility] Address: [address] [place] [address] Performed By: #### 5 7021-8 ####[facility] LABCLIA [id number] [place] [address] MCHC (RBC) [Mass/Vol] 34.7 g/dL Normal 30.5-36.0 [facility] Comment on above: Order Comment: Speci men Type: BLOOD SPECIMENOrdering Facility: [facility] Address: [address] [place] [address] Performed By: #### 5 7021-8 ####[facility] LABCLIA [id number] [place] [address] MCV (RBC) [Entitic vol] 84.2 fL Normal 80.0-100.0 [facility] Comment on above: Order Comment: Speci men Type: BLOOD SPECIMENOrdering Facility: [facility] Address: [address] [place] [address] Performed By: #### 5 7021-8 ####[facility] LABCLIA [id number] [place] [address] Monocytes (Bld) [#/Vol] 0.34 10*3/uL Normal <0.87 [facility] Comment on above: Order Comment: Speci men Type: BLOOD SPECIMENOrdering Facility: [facility] Address: [address] [place] [address] Performed By: #### 5 7021-8 ####[facility] LABCLIA [id number] [place] [address] Monocytes/100 WBC (Bld) 8.8 % Normal [facility] Comment on above: Order Comment: Speci men Type: BLOOD SPECIMENOrdering Facility: [facility] Address: [address] [place] [address] Performed By: #### 5 7021-8 ####[facility] LABCLIA [id number] [place] [address] Neutrophils (Bld) [#/Vol] 2.81 10*3/uL Normal 1.45-7.50 [facility] Comment on above: Order Comment: Speci men Type: BLOOD SPECIMENOrdering Facility: [facility] Address: [address] [place] [address] Performed By: #### 5 7021-8 ####[facility] LABCLIA [id number] [place] [address] Neutrophils/100 WBC (Bld) 73.1 % Normal [facility] Comment on above: Order Comment: Speci men Type: BLOOD SPECIMENOrdering Facility: [facility] Address: [address] [place] [address] Performed By: #### 5 7021-8 ####[facility] LABCLIA [id number] [place] [address] Nucleated RBC (Bld) [#/Vol] 10*3/uL Normal <0.01 [facility] Comment on above: Order Comment: Speci men Type: BLOOD SPECIMENOrdering Facility: [facility] Address: [address] [place] [address] Performed By: #### 5 7021-8 ####[facility] LABCLIA [id number] [place] [address] Nucleated RBC/100 WBC (Bld) [Ratio] 0.0 /100 WBC Normal [facility] Comment on above: Order Comment: Speci men Type: BLOOD SPECIMENOrdering Facility: [facility] Address: [address] [place] [address] Performed By: #### 5 7021-8 ####[facility] LABCLIA [id number] [place] [address] Platelet mean volume (Bld) [Entitic vol] 10.1 fL Normal 9.0-12.7 [facility] Comment on above: Order Comment: Speci men Type: BLOOD SPECIMENOrdering Facility: [facility] Address: [address] [place] [address] Performed By: #### 5 7021-8 ####[facility] LABCLIA [id number] [place] [address] Platelets (Bld) [#/Vol] 200 10*3/uL Normal 150-400 [facility] Comment on above: Order Comment: Speci men Type: BLOOD SPECIMENOrdering Facility: [facility] Address: [address] [place] [address] Performed By: #### 5 7021-8 ####[facility] LABIA [id number] [place] [address] RBC (Bld) [#/Vol] 5.31 10*6/uL Normal 4.20-6.00 [facility] Comment on above: Order Comment: Speci men Type: BLOOD SPECIMENOrdering Facility: [facility] Address: [address] [place] [address] Performed By: #### 5 7021-8 ####[facility] LABIA [id number] [place] [address] WBC (Bld) [#/Vol] 3.85 10*3/uL Normal 3.70-11.00 [facility] Comment on above: Order Comment: Speci men Type: BLOOD SPECIMENOrdering Facility: [facility] Address: [address] [place] [address] Performed By: #### 5 7021-8 ####[facility] LABCLIA [id number] [place] [address] CNOVon 07-25-2023 CNOV Office Visit (RADTSA ) -- JORDAN BENNETT ([id number]) 1975 M Date Time Provider Department 07/25/23 9:45 AM LAB/PORT RADT [facility] RADTSA During your visit today, we recorded the following information about you: Gavin Rea LPN 07/25/2023 9:53 AM Signed Jordan Bennett presents in office today for: Lab Draw only . Ordering Provider: Thierno Jasso M.D. Test (s) ordered: CBC Method for obtaining blood: Phlebotomy was performed, accessing left hand vein. Needle removed intact. Dressing secured. Patient denies discomfort, dizziness, light-headedness or weakness and left the department without assist. Gavin Rea LPN Allergies As of Date: 07/25/2023 Noted Allergy Reaction PENICILLINS 08/23/2021 2 - Rash SHELLFISH CONTAINING PRODUCTS 08/23/2021 14 - Other: See Comments Date Reviewed: 07/22/2023 Reviewed by: Gavin Rea LPN - Fully Assessed Visit Diagnosis:Malignant neoplasm of testicle, unspecified laterality, 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] Order(s):CBC + DIFF [SQCBCDIF] Order #: [id number]. #:[id number] Prescriptions as of 07/25/2023 - ondansetron orally disintegrating (ZOFRAN ODT) 8 mg disintegrating tablet Take 1 tablet by mouth every 8 hours as needed for nausea/vomiting. - ondansetron (ZOFRAN) 8 mg tablet Take 1 tablet by mouth once daily as needed for nausea/vomiting. - lisinopril-hydroCHLOROthia zide (ZESTORETIC) 20-12.5 mg per tablet Take 2 tablets by mouth every afternoon. - traZODone (DESYREL) 50 mg tablet Take 50 mg by mouth at bedtime as needed. - Omeprazole 20 mg TbEC Take by mouth. - multivit-min/ferrous fumarate (MULTI VITAMIN ORAL) Refill(s) 0 - Zinc 50 mg tab Take by mouth. 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 Ordering Provider: Thierno Jasso M.D. Test (s) ordered: CBC Method for obtaining blood: Phlebotomy was performed, accessing left hand vein. Needle removed intact. Dressing secured. Patient denies discomfort, dizziness, light-headedness or weakness and left the department without assist. Gavin Rea LPN Encounter Status:Closed by GAVIN REA on 07/25/23 [facility] [place] -- JORDAN BENNETT ([id number]) 1975 M Date Time Provider Department 07/25/23 Dimitry JASSO During your visit today, we recorded the following information about you: Gavin Rea LPN 07/25/2023 1:18 PM Signed Sudhir, pt's , called stating there is some sort of issue with Jordan's new Zofran prescription. I called [facility] and Lisa in the pharmacy said pt's insurance will only cover a 30 day supply without a prior auth. Lisa will send an auth request to our office. Sudhir notified of the above and will check back with their local pharmacy for an update. Thanks Nessa Alonso Kathryn, [facility] 07/25/2023 1:40 PM Signed Ambulatory Pharmacy Prior Authorization Note Provider Intervention Required?: No- Pharmacy completed on your behalf. Rx Plan: Other: [facility]: ondansetron 8 mg tablets 90 per 30 days Cover My Meds [place]: [id number] Determination: Approved Prior Authorization/Case #: [id number] Prior Authorization Expiration: 07/24/2024 Time to PA Submission in CMM: 15 min Time to PA Determination in CMM: Same day Additional Information: For questions relating to this submission, please contact [facility] at [phone] Maye Mortensen 07/25/2023 1:42 PM Signed Prior authorization approved, he will be tablets to get 90 tablets per month. Jt Mortensen, Ingrid, [facility] Allergies As of Date: 07/25/2023 Noted Allergy Reaction PENICILLINS 08/23/2021 2 - Rash SHELLFISH CONTAINING PRODUCTS 08/23/2021 14 - Other: See Comments Date Reviewed: 07/22/2023 Reviewed by: Gavin Rea LPN - Fully Assessed Reason for Visit: Medication Problem [65] Prescriptions as of 07/25/2023 - ondansetron (ZOFRAN) 8 mg tablet Take 1 tablet by mouth every 8 hours as needed for nausea/vomiting. - lisinopril-hydroCHLOROthia zide (ZESTORETIC) 20-12.5 mg per tablet Take 2 tablets by mouth every afternoon. - traZODone (DESYREL) 50 mg tablet Take 50 mg by mouth at bedtime as needed. - Omeprazole 20 mg TbEC Take by mouth. - multivit-min/ferrous fumarate (MULTI VITAMIN ORAL) Refill(s) 0 - Zinc 50 mg tab Take by mouth. 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 He is currently taking Zofran 8mg once daily prior to radiation therapy. He c/o fatigue also. He denies feeling lightheaded or dizzy. Please advise. NESSA Alonso Ariana, LPN 07/24/2023 3:18 PM Signed I left a message for Sudhir with Dr. Jasso's instructions to increase Zofran 8mg TID prn. I requested a call back if a refill is needed. Gavin Rea RN Allergies As of Date: 07/24/2023 Noted Allergy Reaction PENICILLINS 08/23/2021 2 - Rash SHELLFISH CONTAINING PRODUCTS 08/23/2021 14 - Other: See Comments Date Reviewed: 07/22/2023 Reviewed by: Gavin Rea LPN - Fully Assessed Prescriptions as of 07/25/2023 - ondansetron (ZOFRAN) 8 mg tablet Take 1 tablet by mouth every 8 hours as needed for nausea/vomiting. - lisinopril-hydroCHLOROthia zide (ZESTORETIC) 20-12.5 mg per tablet Take 2 tablets by mouth every afternoon. - traZODone (DESYREL) 50 mg tablet Take 50 mg by mouth at bedtime as needed. - Omeprazole 20 mg TbEC Take by mouth. - multivit-min/ferrous fumarate (MULTI VITAMIN ORAL) Refill(s) 0 - Zinc 50 mg tab Take by mouth. 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 COURSE: definitive Current dose: 1200 cGy in 6 fx Planned dose: 3000 cGy in 15 fx SUBJECTIVE: Doing well. Had couple episodes of nausea and 1 episode of vomiting after first treatment. Well-controlled with Zofran prior to treatment. Appetite stable. PHYSICAL EXAM: 07/22/23943 BP: 165/108 Pulse: 64 Resp: 18 Temp: 36.5 ?C (97.7 ?F) SpO2: 98% Weight: (!) 152.4 kg (335 lb 15.7 oz) KPS: 100 General Appearance: Alert and oriented. No acute distress. IMAGING/LAB RESULTS: Hemoglobin (g/dL) Date Value 07/18/2023 16.3 Hematocrit (%) Date Value 07/18/2023 46.9 WBC (k/uL) Date Value 07/18/2023 7.07 Platelet Count (k/uL) Date Value 07/18/2023 247 TOXICITY ASSESSMENT (CTC v4.0): Fatigue:grade 0 - No symptoms Radiation Dermatitis: grade 0 - No symptoms Diarrhea:grade 0 - No symptoms Nausea: none Treatment chart checked: Yes Patient treatment site reviewed and verified:Yes Port films reviewed and current:Yes Medications started: None ASSESSMENT/PLAN: Patient doing well. Continue Zofran prior to treatment. Chart and imaging reviewed. Continue radiation as outlined. Dimitry Jasso MD Allergies As of Date: 07/22/2023 Noted Allergy Reaction PENICILLINS 08/23/2021 2 - Rash SHELLFISH CONTAINING PRODUCTS 08/23/2021 14 - Other: See Comments Date Reviewed: 07/22/2023 Reviewed by: Gavin Rea LPN - Fully Assessed Reason for Visit: Radiotherapy On-treatment Visit [1722] Primary Visit Diagnosis:Malignant neoplasm of testicle, unspecified laterality, 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] Prescriptions as of 07/22/2023 - ondansetron orally disintegrating (ZOFRAN ODT) 8 mg disintegrating tablet Take 1 tablet by mouth every 8 hours as needed for nausea/vomiting. - ondansetron (ZOFRAN) 8 mg tablet Take 1 tablet by mouth once daily as needed for nausea/vomiting. - lisinopril-hydroCHLOROthia zide (ZESTORETIC) 20-12.5 mg per tablet Take 2 tablets by mouth every afternoon. - traZODone (DESYREL) 50 mg tablet Take 50 mg by mouth at bedtime as needed. - Omeprazole 20 mg TbEC Take by mouth. - multivit-min/ferrous fumarate (MULTI VITAMIN ORAL) Refill(s) 0 - Zinc 50 mg tab Take by mouth. 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2 % 11.5 - 15.0 % [facility] Hematocrit (Bld) [Volume fraction] 46.9 % 39.0 - 51.0 % [facility] Hemoglobin (Bld) [Mass/Vol] 16.3 g/dL 13.0 - 17.0 g/dL [facility] Immature granulocytes (Bld) [#/Vol] <0.10 k/uL [facility] Immature granulocytes/100 WBC (Bld) 0.3 % [facility] Lymphocytes (Bld) [#/Vol] 1.21 10*3/uL 1.00 - 4.00 k/uL [facility] Lymphocytes/100 WBC (Bld) 17.1 % [facility] MCH (RBC) [Entitic mass] 29.4 pg 26.0 - 34.0 pg [facility] MCHC (RBC) [Mass/Vol] 34.8 g/dL 30.5 - 36.0 g/dL [facility] MCV (RBC) [Entitic vol] 84.7 fL 80.0 - 100.0 fL [facility] Monocytes (Bld) [#/Vol] 0.53 10*3/uL <0.87 k/uL [facility] Monocytes/100 WBC (Bld) 7.5 % [facility] Neutrophils (Bld) [#/Vol] 5.16 10*3/uL 1.45 - 7.50 k/uL [facility] Neutrophils/100 WBC (Bld) 72.9 % [facility] Nucleated RBC (Bld) [#/Vol] <0.01 k/uL [facility] Nucleated RBC/100 WBC (Bld) [Ratio] 0.0 /100 WBC [facility] Platelet mean volume (Bld) [Entitic vol] 10.1 fL 9.0 - 12.7 fL [facility] Platelets (Bld) [#/Vol] 247 10*3/uL 150 - 400 k/uL [facility] RBC (Bld) [#/Vol] 5.54 10*6/uL 4.20 - 6.0 0 m/uL [facility] WBC (Bld) [#/Vol] 7.07 10*3/uL 3.70 - 11.00 k/uL [facility] Basophils (Bld) [#/Vol] 0.04 10*3/uL Normal <0.11 [facility] Comment on above: Order Comment: Speci men Type: BLOOD SPECIMENOrdering Facility: [facility] Address: [address] [place] [address] Performed By: #### 5 7021-8 ####[facility] LABCLIA [id number] [place] [address] Basophils/100 WBC (Bld) 0.6 % Normal [facility] Comment on above: Order Comment: Speci men Type: BLOOD SPECIMENOrdering Facility: [facility] Address: [address] [place] [address] Performed By: #### 5 7021-8 ####[facility]CLIA [id number] [place] [address] Differential cell count method Nom (Bld) Auto Normal [facility] Comment on above: Order Comment: Speci men Type: BLOOD SPECIMENOrdering Facility: [facility] Address: [address] [place] [address] Performed By: #### 5 7021-8 ####[facility]CL[facility] [id number] [place] [address] Eosinophils (Bld) [#/Vol] 0.11 10*3/uL Normal <0.46 [facility] Comment on above: Order Comment: Speci men Type: BLOOD SPECIMENOrdering Facility: [facility] Address: [address] [place] [address] Performed By: #### 5 7021-8 ####[facility]CLIA [id number] [place] [address] Eosinophils/100 WBC (Bld) 1.6 % Normal [facility] Comment on above: Order Comment: Speci men Type: BLOOD SPECIMENOrdering Facility: [facility] Address: [address] [place] [address] Performed By: #### 5 7021-8 ####[facility]CL[facility] [id number] [place] [address] Erythrocyte distribution width (RBC) [Ratio] 12.2 % Normal 11.5-15.0 [facility] Comment on above: Order Comment: Speci men Type: BLOOD SPECIMENOrdering Facility: [facility] Address: [address] [place] [address] Performed By: #### 5 7021-8 ####[facility]CL[facility] [id number] [place] [address] Hematocrit (Bld) [Volume fraction] 46.9 % Normal 39.0-51.0 [facility] Comment on above: Order Comment: Speci men Type: BLOOD SPECIMENOrdering Facility: [facility] Address: [address] [place] [address] Performed By: #### 5 7021-8 ####[facility] LABIA [id number] [place] [address] Hemoglobin (Bld) [Mass/Vol] 16.3 g/dL Normal 13.0-17.0 [facility] Comment on above: Order Comment: Speci men Type: BLOOD SPECIMENOrdering Facility: [facility] Address: [address] [place] [address] Performed By: #### 5 7021-8 ####[facility]CLIA [id number] [place] [address] Immature granulocytes (Bld) [#/Vol] 10*3/uL Normal <0.10 [facility] Comment on above: Order Comment: Speci men Type: BLOOD SPECIMENOrdering Facility: [facility] Address: [address] [place] [address] Performed By: #### 5 7021-8 ####[facility]CLIA [id number] [place] [address] Immature granulocytes/100 WBC (Bld) 0.3 % Normal [facility] Comment on above: Order Comment: Speci men Type: BLOOD SPECIMENOrdering Facility: [facility] Address: [address] [place] [address] Performed By: #### 5 7021-8 ####[facility]CLIA [id number] [place] [address] Lymphocytes (Bld) [#/Vol] 1.21 10*3/uL Normal 1.00-4.00 [facility] Comment on above: Order Comment: Speci men Type: BLOOD SPECIMENOrdering Facility: [facility] Address: [address] [place] [address] Performed By: #### 5 7021-8 ####[facility]CLIA [id number] [place] [address] Lymphocytes/100 WBC (Bld) 17.1 % Normal [facility] Comment on above: Order Comment: Speci men Type: BLOOD SPECIMENOrdering Facility: [facility] Address: [address] [place] [address] Performed By: #### 5 7021-8 ####[facility]CLIA [id number] [place] [address] MCH (RBC) [Entitic mass] 29.4 pg Normal 26.0-34.0 [facility] Comment on above: Order Comment: Speci men Type: BLOOD SPECIMENOrdering Facility: [facility] Address: [address] [place] [address] Performed By: #### 5 7021-8 ####[facility]CLIA [id number] [place] [address] MCHC (RBC) [Mass/Vol] 34.8 g/dL Normal 30.5-36.0 [facility] Comment on above: Order Comment: Speci men Type: BLOOD SPECIMENOrdering Facility: [facility] Address: [address] [place] [address] Performed By: #### 5 7021-8 ####[facility] LABCLIA [id number] [place] [address] MCV (RBC) [Entitic vol] 84.7 fL Normal 80.0-100.0 [facility] Comment on above: Order Comment: Speci men Type: BLOOD SPECIMENOrdering Facility: [facility] Address: [address] [place] [address] Performed By: #### 5 7021-8 ####[facility]CLIA [id number] [place] [address] Monocytes (Bld) [#/Vol] 0.53 10*3/uL Normal <0.87 [facility] Comment on above: Order Comment: Speci men Type: BLOOD SPECIMENOrdering Facility: [facility] Address: [address] [place] [address] Performed By: #### 5 7021-8 ####[facility] LABCLIA [id number] [place] [address] Monocytes/100 WBC (Bld) 7.5 % Normal [facility] Comment on above: Order Comment: Speci men Type: BLOOD SPECIMENOrdering Facility: [facility] Address: [address] [place] [address] Performed By: #### 5 7021-8 ####[facility]CLIA [id number] [place] [address] Neutrophils (Bld) [#/Vol] 5.16 10*3/uL Normal 1.45-7.50 [facility] Comment on above: Order Comment: Speci men Type: BLOOD SPECIMENOrdering Facility: [facility] Address: [address] [place] [address] Performed By: #### 5 7021-8 ####[facility] LABCLIA [id number] [place] [address] Neutrophils/100 WBC (Bld) 72.9 % Normal [facility] Comment on above: Order Comment: Speci men Type: BLOOD SPECIMENOrdering Facility: [facility] Address: [address] [place] [address] Performed By: #### 5 7021-8 ####[facility] LABCLIA [id number] [place] [address] Nucleated RBC (Bld) [#/Vol] 10*3/uL Normal <0.01 [facility] Comment on above: Order Comment: Speci men Type: BLOOD SPECIMENOrdering Facility: [facility] Address: [address] [place] [address] Performed By: #### 5 7021-8 ####[facility]CLIA [id number] [place] [address] Nucleated RBC/100 WBC (Bld) [Ratio] 0.0 /100 WBC Normal [facility] Comment on above: Order Comment: Speci men Type: BLOOD SPECIMENOrdering Facility: [facility] Address: [address] [place] [address] Performed By: #### 5 7021-8 ####[facility]CLIA [id number] [place] [address] Platelet mean volume (Bld) [Entitic vol] 10.1 fL Normal 9.0-12.7 [facility] Comment on above: Order Comment: Speci men Type: BLOOD SPECIMENOrdering Facility: [facility] Address: [address] [place] [address] Performed By: #### 5 7021-8 ####[facility] LABCLIA [id number] [place] [address] Platelets (Bld) [#/Vol] 247 10*3/uL Normal 150-400 [facility] Comment on above: Order Comment: Speci men Type: BLOOD SPECIMENOrdering Facility: [facility] Address: [address] [place] [address] Performed By: #### 5 7021-8 ####[facility] LABIA [id number] [place] [address] RBC (Bld) [#/Vol] 5.54 10*6/uL Normal 4.20-6.00 [facility] Comment on above: Order Comment: Speci men Type: BLOOD SPECIMENOrdering Facility: [facility] Address: [address] [place] [address] Performed By: #### 5 7021-8 ####[facility] LABIA [id number] [place] [address] WBC (Bld) [#/Vol] 7.07 10*3/uL Normal 3.70-11.00 [facility] Comment on above: Order Comment: Speci men Type: BLOOD SPECIMENOrdering Facility: [facility] Address: [address] [place] [address] Performed By: #### 5 7021-8 ####[facility] LABIA [id number] [place] [address] CNOVon 07-18-2023 CNOV Office Visit (RADTSA ) -- JORDAN BENNETT ([id number]) 1975 M Date Time Provider Department 07/18/23 9:45 AM LAB/PORT RADT [facility] During your visit today, we recorded the following information about you: Gavin Rea LPN 07/18/2023 3:51 PM Signed Jordan Bennett presents in office today for: Lab Draw only . Ordering Provider: Thierno Jasso M.D. Test (s) ordered: CBC Method for obtaining blood: Phlebotomy was performed, accessing right hand vein. Needle removed intact. Dressing secured. Patient denies discomfort, dizziness, light-headedness or weakness and left the department without assist. Gavin Rea LPN Allergies As of Date: 07/18/2023 Noted Allergy Reaction PENICILLINS 08/23/2021 2 - Rash SHELLFISH CONTAINING PRODUCTS 08/23/2021 14 - Other: See Comments Date Reviewed: 07/15/2023 Reviewed by: Gavin Rea LPN - Fully Assessed Visit Diagnosis:Malignant neoplasm of testicle, unspecified laterality, 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] Order(s):CBC + DIFF [SQCBCDIF] Order #: [id number]. #:[id number] Prescriptions as of 07/18/2023 - ondansetron orally disintegrating (ZOFRAN ODT) 8 mg disintegrating tablet Take 1 tablet by mouth every 8 hours as needed for nausea/vomiting. - ondansetron (ZOFRAN) 8 mg tablet Take 1 tablet by mouth once daily as needed for nausea/vomiting. - lisinopril-hydroCHLOROthia zide (ZESTORETIC) 20-12.5 mg per tablet Take 2 tablets by mouth every afternoon. - traZODone (DESYREL) 50 mg tablet Take 50 mg by mouth at bedtime as needed. - Omeprazole 20 mg TbEC Take by mouth. - multivit-min/ferrous fumarate (MULTI VITAMIN ORAL) Refill(s) 0 - Zinc 50 mg tab Take by mouth. 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 Ordering Provider: Thierno Jasso M.D. Test (s) ordered: CBC Method for obtaining blood: Phlebotomy was performed, accessing right hand vein. Needle removed intact. Dressing secured. Patient denies discomfort, dizziness, light-headedness or weakness and left the department without assist. Gavin Rea LPN Encounter Status:Closed by GAVIN REA on 07/18/23 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 COURSE: definitive Current dose: 200 cGy in 1 fx Planned dose: 3000 cGy in 15 fx SUBJECTIVE: Here to start radiation, doing well. PHYSICAL EXAM: KPS: 100 General Appearance: Alert and oriented. No acute distress. IMAGING/LAB RESULTS: None TOXICITY ASSESSMENT (CTC v4.0): Fatigue:grade 0 - No symptoms Radiation Dermatitis: grade 0 - No symptoms Diarrhea:grade 0 - No symptoms Nausea: none Treatment chart checked: Yes Patient treatment site reviewed and verified:Yes Port films reviewed and current:Yes Medications started: None ASSESSMENT/PLAN: Patient starting radiation today. Plan of care and expectations again reviewed. Plan, MU calculations and qa report reviewed. Initial imaging including cone beam ct and verification reviewed and approved. First treatment given. Continue radiation as prescribed. Dimitry Jasso MD Allergies As of Date: 07/15/2023 Noted Allergy Reaction PENICILLINS 08/23/2021 2 - Rash SHELLFISH CONTAINING PRODUCTS 08/23/2021 14 - Other: See Comments Date Reviewed: 07/15/2023 Reviewed by: Gavin Rea LPN - Fully Assessed Reason for Visit: Radiotherapy On-treatment Visit [1722] Primary Visit Diagnosis:Malignant neoplasm of testicle, unspecified laterality, 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] Prescriptions as of 07/15/2023 - ondansetron orally disintegrating (ZOFRAN ODT) 8 mg disintegrating tablet Take 1 tablet by mouth every 8 hours as needed for nausea/vomiting. - ondansetron (ZOFRAN) 8 mg tablet Take 1 tablet by mouth once daily as needed for nausea/vomiting. - lisinopril-hydroCHLOROthia zide (ZESTORETIC) 20-12.5 mg per tablet Take 2 tablets by mouth every afternoon. - traZODone (DESYREL) 50 mg tablet Take 50 mg by mouth at bedtime as needed. - Omeprazole 20 mg TbEC Take by mouth. - multivit-min/ferrous fumarate (MULTI VITAMIN ORAL) Refill(s) 0 - Zinc 50 mg tab Take by mouth. 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 NESSA Alonso Ariana, LPN 07/10/2023 8:[address] Kelly: Dr. Jasso requested weekly CBC during Jordan's radiation therapy. Will you sign CBC order in his absence please? Thanks Gavin Rea RN Allergies As of Date: 07/09/2023 Noted Allergy Reaction PENICILLINS 08/23/2021 2 - Rash SHELLFISH CONTAINING PRODUCTS 08/23/2021 14 - Other: See Comments Date Reviewed: 06/27/2023 Reviewed by: Jewels Peterson MA - Fully Assessed Primary Visit Diagnosis:Malignant neoplasm of testicle, unspecified laterality, 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] Order(s):CBC + DIFF [SQCBCDIF] Order #: [id number] STANDING Prescriptions as of 07/10/2023 - ondansetron orally disintegrating (ZOFRAN ODT) 8 mg disintegrating tablet Take 1 tablet by mouth every 8 hours as needed for nausea/vomiting. - ondansetron (ZOFRAN) 8 mg tablet Take 1 tablet by mouth once daily as needed for nausea/vomiting. - lisinopril-hydroCHLOROthia zide (ZESTORETIC) 20-12.5 mg per tablet Take 2 tablets by mouth every afternoon. - traZODone (DESYREL) 50 mg tablet Take 50 mg by mouth at bedtime as needed. - Omeprazole 20 mg TbEC Take by mouth. - multivit-min/ferrous fumarate (MULTI VITAMIN ORAL) Refill(s) 0 - Zinc 50 mg tab Take by mouth. 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*02/14/2023 Encounter Status:Closed by FAZAL KELLY on 07/10/23 Normal [facility] CNOVon 07-05-2023 CNOV Office Visit (RADTSA ) -- SABRINAJORDAN ([id number]) 1975 M Date Time Provider Department 07/05/23 11:00 AM Dimitry JASSO During your visit today, we recorded the following information about you: Allergies As of Date: 07/05/2023 Noted Allergy Reaction PENICILLINS 08/23/2021 2 - Rash SHELLFISH CONTAINING PRODUCTS 08/23/2021 14 - Other: See Comments Date Reviewed: 06/27/2023 Reviewed by: Jewels Peterson MA - Fully Assessed Reason for Visit: Simulation Request Form [4068] Primary Visit Diagnosis:Malignant neoplasm of testicle, unspecified laterality, 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] Order(s):RADIATION TREATMENT PER RADIATION ONCOLOGIST PLAN [4127712] Order #: [id number]: 1 CT SIM PLANNING RADIATION ONCOLOGY [7061723] Order #: [id number] ondansetron (ZOFRAN) 8 mg tabletTake 1 tablet by mouth once daily as needed for nausea/vomiting.Disp: 20 tabletRfl: 1 Prescriptions as of 07/05/2023 - ondansetron (ZOFRAN) 8 mg tablet Take 1 tablet by mouth once daily as needed for nausea/vomiting. - lisinopril-hydroCHLOROthia zide (ZESTORETIC) 20-12.5 mg per tablet Take 2 tablets by mouth every afternoon. - traZODone (DESYREL) 50 mg tablet Take 50 mg by mouth at bedtime as needed. - Omeprazole 20 mg TbEC Take by mouth. - multivit-min/ferrous fumarate (MULTI VITAMIN ORAL) Refill(s) 0 - Zinc 50 mg tab Take by mouth. 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 Encounter Status:Closed by Dimitry JASSO on 07/05/23 Normal [facility] Consultation Noteon 07-05-19 Consultation Note [id number] Normal [facility] Consultation Note [id number] Normal [facility] CNSWon 06-28-2023 [facility] Social Work (HEMAS[place]) -- JORDAN BENNETT ([id number]) 1975 M Date Time Provider Department 06/28/23 CATHI FAULKNER During your visit today, we recorded the following information about you: Cathi Faulkner LSW 06/28/2023 3:50 PM Signed Patient Declined Social Work Assessment SOCIAL WORK FOLLOW UP NOTE: [facility] Date of service:06/1223 Jordan Bennett is being seen for a follow up social work visit. Today's visit includes: patient TOPICS ADDRESSED: coping/support PLAN: Continue follow up as needed F/U APPOINTMENT: PRN Assigned SW listed in Care Team tab: Yes Patient appears on the PRO [place] Report for a NCCN score of 8. This questionnaire was completed on 06/27/23. SW called and spoke with Patient. He reports that he felt much better after the appointment than before. Patient now knows his treatment plan. Patient is aware that SW services are available to him. Patient denied any immediate psychosocial needs or concerns. SW will remain available and will follow up as appropriate. HAMIDA Carrington-Eric Allergies As of Date: 06/28/2023 Noted Allergy Reaction PENICILLINS 08/23/2021 2 - Rash SHELLFISH CONTAINING PRODUCTS 08/23/2021 14 - Other: See Comments Date Reviewed: 06/27/2023 Reviewed by: Jewels Peterson MA - Fully Assessed Prescriptions as of 06/28/2023 - lisinopril-hydroCHLOROthia zide (ZESTORETIC) 20-12.5 mg per tablet Take 2 tablets by mouth every afternoon. - traZODone (DESYREL) 50 mg tablet Take 50 mg by mouth at bedtime as needed. - Omeprazole 20 mg TbEC Take by mouth. - multivit-min/ferrous fumarate (MULTI VITAMIN ORAL) Refill(s) 0 - Zinc 50 mg tab Take by mouth. 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 CNOVon 06-27-2023 CNOV Office Visit (RADTSA ) -- JORDAN BENNETT ([id number]) 1975 M Date Time Provider Department 06/27/23 2:45 PM Dimitry JASSO During your visit today, we recorded the following information about you: Temperature Pulse Respiration Blood pressure 97.6 degrees 68/minute 16/minute 141/77 Weight 151 kg Dimitry Jasso MD 07/05/2023 8:51 AM Signed Radiation Oncology - New Patient/Consult Note PATIENT NAME: Jordan Bennett PATIENT REQUESTING PROVIDER: Dr. 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 HPI: Patient known to me from previous consult for his stage Ib classic seminoma. Patient has been doing well and surveillance about clinical issues or concerns. He has been undergoing CT evaluation every [address] in October of this year demonstrating nonspecific interval increase in aortocaval nodes, nonspecific. Follow-up scans 05/17/2023 demonstrated increased size of the aortocaval lymph node measuring up to 1.3 cm ,as noted below. 05/17/2023 CT chest IMPRESSION: 1. Stable CT of the chest. Patchy groundglass opacities in both lower lobes, likely infectious/inflammatory in nature. No new lobar consolidation or pleural effusion. 2. Stable right upper lobe 3 mm nodule. No new or enlarging nodules are seen. 3. Right paratracheal node measuring 1.2 cm in short axis. No bulky intrathoracic adenopathy is visualized. 05/17/2023 CT abdomen/pelvis IMPRESSION: 1. Interval increase in size of aortocaval node, now measuring up to 1.3 cm. Other previously described lymph nodes appear unchanged. No new abdominal or pelvic adenopathy is visualized. 2. No additional findings of abdominal or pelvic metastatic disease. 3. Mild hepatic steatosis. Patient underwent further evaluation with PET scan: 06/07/2023 PET scan IMPRESSION: 1. Neck: No suspicious hypermetabolic foci 2. Chest: No evidence of FDG avid neoplastic process 3. Abdomen and pelvis: Hypermetabolic aortocaval lymph node suspicious for metastases. Hypermetabolic foci of subcutaneous thickening in the gluteal/inguinal regions possibly inflammatory. 4. Skeleton: No hypermetabolic osseous lesions LABORATORY: Latest Reference Range AND Units 05/17/23 10:18 Sodium 136 - 144 mmol/L 140 Potassium 3.7 - 5.1 mmol/L 4.1 Chloride 97 - 105 mmol/L 106 (H) CO2 22 - 30 mmol/L 24 BUN 9 - 24 mg/dL 22 Creatinine 0.73 - 1.22 mg/dL 0.95 Glucose 74 - 99 mg/dL 103 (H) Protein, Total 6.3 - 8.0 g/dL 7.1 Calcium 8.5 - 10.2 mg/dL 9.5 Albumin 3.9 - 4.9 g/dL 4.5 Bilirubin, Total 0.2 - 1.3 mg/dL 0.5 Alkaline Phosphatase 38 - 113 U/L 65 ALT 10 - 54 U/L 17 AST 14 - 40 U/L 17 Anion Gap 9 - 18 mmol/L 10 LD 135 - 225 U/L 211 eGFR >=60 mL/min/1.73m? 98 AFP <11.0 ng/mL <3.0 Beta hCG Quant Tumor Marker 0 - 3 IU/L <1 WBC 3.70 - 11.00 k/uL 7.66 RBC 4.20 - 6.00 m/uL 5.16 Hemoglobin 13.0 - 17.0 g/dL 15.2 Hematocrit 39.0 - 51.0 % 43.7 Platelet Count 150 - 400 k/uL 252 MCV 80.0 - 100.0 fL 84.7 MCH 26.0 - 34.0 pg 29.5 MCHC 30.5 - 36.0 g/dL 34.8 MPV 9.0 - 12.7 fL 10.4 RDW-CV 11.5 - 15.0 % 12.9 DTYPE Auto Neut% % 58.3 Abs Neut (ANC) 1.45 - 7.50 k/uL 4.46 Lymph% % 30.9 Abs Lymph 1.00 - 4.00 k/uL 2.37 [place]% % 6.9 Abs [place] <0.87 k/uL 0.53 Eosin% % 2.7 Abs Eosin <0.46 k/uL 0.21 Baso% % 0.8 Abs Baso <0.11 k/uL 0.06 Immature Gran % % 0.4 IMMATURE GRANS (ABS) <0.10 k/uL 0.03 NRBC /100 WBC 0.0 Absolute nRBC <0.01 k/uL <0.01 (H): Data is abnormally high ALLERGIES Allergen Reactions Penicillins Rash Shellfish Containin* Other: See Comments PAST MEDICAL HISTORY Diagnosis Date BPH (benign prostatic hyperplasia) Epididymal mass Hematuria Primary hypertension Testicular cancer (HCC) Prior radiation therapy, collagen vascular disease, or inflammatory bowel disease: No PAST SURGICAL HISTORY Procedure Laterality Date CYSTOSCOPY PAST SURGICAL HISTORY OF Right 08/03/2021 FAMILY HISTORY Problem Relation Age of Onset Brain Cancer Father Cancer Paternal Grandfather Social History Tobacco Use Smoking status: Never Smokeless tobacco: Never Vaping Use Vaping Use: Never used Substance Use Topics Alcohol use: Not Currently Drug use: Never COMPLETE REVIEW OF SYSTEMS: GENERAL: feeling well without fatigue, no recent change in weight NECK: denies swelling or pain in neck RESPIRATORY: no cough, no wheezing or shortness of breath CARDIOVASCULAR: no chest pain, no palpitations GI: normal appetite, tolerating PO well, BMs normal and no abdominal pain : urination is normal, no history of prior scrotal surgery, no history of undescended testes MUSCULOSKELETAL: denies any painful or swollen joints, no muscle aches SKIN: no rash As noted in HPI PHYSICAL EXAM: VS: BP (more content not included)... [facility] CNOVSPon 06-27-2023 CNOVSP Visit (SP) Office ([facility]) -- JORDAN BENNETT ([id number]) 1975 M Date Time Provider Department 06/27/23 3:15 PM JORDAN PETERS During your visit today, we recorded the following information about you: Temperature Pulse Respiration Blood pressure 97.4 degrees 68/minute 16/minute 141/77 Weight Height 151 kg 1.803 m Jordan Peters MD 06/28/2023 7:58 AM Signed PATIENT NAME: Jordan Bennett DATE: 06/27/2023 PRIMARY CARE PHYSICIAN: Ashli Ni DO OTHER PHYSICIANS: Dr. Lewis, Dr. Jasso Portions of this encounter note have been copied from the note from 05/23/2023 and has been updated where appropriate, and reflect my current medical decision making from today. CC: This is a 48 year old male with metastatic seminoma of the right testicle, seen for scheduled follow-up. INTERIM HISTORY: Since the patient's last visit here he underwent a PET scan for evaluation of his abnormal CT. The PET scan revealed a hypermetabolic aortocaval lymph node suspicious for metastases. The scan revealed several other areas of abnormality, but not felt to be consistent with metastases. Clinically the patient feels well. He denies abdominal pain or other GI symptoms. MEDICATIONS: Current Outpatient Medications Medication Sig lisinopril-hydroCHLOROthia zide (ZESTORETIC) 20-12.5 mg per tablet Take 2 tablets by mouth every afternoon. traZODone (DESYREL) 50 mg tablet Take 50 mg by mouth at bedtime as needed. Omeprazole 20 mg TbEC Take by mouth. multivit-min/ferrous fumarate (MULTI VITAMIN ORAL) Refill(s) 0 Zinc 50 mg tab Take by mouth. No current facility-administered medications for this visit. ALLERGIES: ALLERGIES Allergen Reactions Penicillins Rash Shellfish Containin* Other: See Comments PAST MEDICAL HISTORY: PAST MEDICAL HISTORY Diagnosis Date BPH (benign prostatic hyperplasia) Epididymal mass Hematuria Primary hypertension Testicular cancer (HCC) PAST SURGICAL HISTORY: PAST SURGICAL HISTORY Procedure Laterality Date CYSTOSCOPY PAST SURGICAL HISTORY OF Right 08/03/2021 FAMILY HISTORY: FAMILY HISTORY Problem Relation Age of Onset Brain Cancer Father Cancer Paternal Grandfather SOCIAL HISTORY: Social History Tobacco Use Smoking status: Never Smokeless tobacco: Never Vaping Use Vaping Use: Never used Substance Use Topics Alcohol use: Not Currently Drug use: Never COMPLETE REVIEW OF SYSTEMS: CONSTITUTION: Negative for pain, fatigue, weight loss, or appetite loss. EENT: Negative for mouth soreness, antibiotics use, epistaxis, visual problems, neck or facial swelling, fever/chills, bleeding gums, or hearing loss. CV: Negative for edema, calf swelling, palpitations, or chest pain. RESPIRATORY: Negative for cough, SOB, hemoptysis, or wheezing. GI: Negative for nausea/vomiting, heartburn, vomiting blood, dysphasia, diarrhea, blood in stool, constipation, early satiety, PICA, vegetarian, poor nutrition, abdominal fullness, or abdominal pain. NEUROLOGICAL: Negative for numbness/tingling, dizziness, gait disturbance, headache, speech disturbance, tremor, hemiparesis/sensory loss, or change in mental status. MUSCULOSKELETAL: Negative for joint pain, joint swelling, or proximal muscle weakness. SKIN: Negative for hair loss, bruising, nail changes, rash, itching, pallor, or jaundice. ENDO/URO: Negative for hot flashes, cold or heat intolerance, urinary frequency, urinary hesitancy, menorrhagia, or hematuria. PSYCH: Negative for anxiety, depression, or other. PHYSICAL EXAM: BP 141/77 Pulse 68 Temp 36.3 ?C (97.4 ?F) (Temporal) Resp 16 Ht 180.3 cm (5' 10.98 ) Wt (!) 151 kg (332 lb 14.3 oz) SpO2 96% BMI 46.45 kg/m? General: Alert and oriented, no distress, pleasant and cooperative. Heart: Regular, normal S1 and S2, no murmurs, rubs, or gallops Lungs: Clear to auscultation bilaterally Abdomen: Benign Extremities: Feet/ankles without edema, posterior tibial pulses full and symmetrical PATHOLOGY: 08/03/2021 Radical right orchiectomy ([facility]) Classic seminoma testicle: 3.2 x 3.0 x 2.5 cm. Intratubular seminoma. The tumor focally invades epididymis and hilar soft tissue. Angiolymphatic invasion is present. The spermatic cord resection margin is free of neoplasm. LABORATORY DATA: Hemoglobin (g/dL) Date Value 05/17/2023 15.2 Hematocrit (%) Date Value 05/17/2023 43.7 WBC (k/uL) Date Value 05/17/2023 7.66 Platelet Count (k/uL) Date Value 05/17/2023 252 RADIOLOGY/OTHER STUDIES: 06/07/2023 PET scan IMPRESSION: 1. Neck: No suspicious hypermetabolic foci 2. Chest: No evidence of FDG avid neoplastic process 3. Abdomen and pelvis: Hypermetabolic aortocaval lymph node suspicious for metastases. Hypermetabolic foci of subcutaneous thickening in the gluteal/inguinal regions possibly inflammatory (more content not included)... [facility] CNPNon 06-25-2023 [facility] -- JORDAN BENNETT ([id number]) 1975 M Date Time Provider Department 06/25/23 SUDHIR BENITEZ During your visit today, we recorded the following information about you: Sudhir Benitez RN 06/25/2023 8:07 AM Signed ----- Message from Jordan Peters MD sent at 06/24/2023 5:25 PM EST ----- The patient is aware of his scan results. He is aware that treatment options include chemotherapy versus radiation. Please schedule an appointment to see myself and Dr. Jasso on the same day later this week or early next week. Please call patient tomorrow with appointment dates. Thanks, ERMA Forman Michelle 06/25/2023 8:44 AM Signed Patient is called and scheduled for thank you Allergies As of Date: 06/25/2023 Noted Allergy Reaction PENICILLINS 08/23/2021 2 - Rash SHELLFISH CONTAINING PRODUCTS 08/23/2021 14 - Other: See Comments Date Reviewed: 05/23/2023 Reviewed by: Lizabeth Friend Ma - Fully Assessed Reason for Visit: Appointment [186] Prescriptions as of 06/25/2023 - lisinopril-hydroCHLOROthia zide (ZESTORETIC) 20-12.5 mg per tablet Take 2 tablets by mouth every afternoon. - traZODone (DESYREL) 50 mg tablet Take 50 mg by mouth at bedtime as needed. - Omeprazole 20 mg TbEC Take by mouth. - multivit-min/ferrous fumarate (MULTI VITAMIN ORAL) Refill(s) 0 - Zinc 50 mg tab Take by mouth. 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 06-18-2023 [facility] Telephone ([facility]) -- JORDAN BENNETT ([id number]) 1975 M Date Time Provider Department 06/18/23 FLAVIO MYERS During your visit today, we recorded the following information about you: Flavio Myers RN 06/18/2023 12:39 PM Signed Pt calling to request pt be called with PET scan results. If he does not answer, she can be reached at [phone] BRM: Please review and advise NESSA Hemphill Brian R, MD 06/19/2023 11:30 AM Signed I discussed the case at length with the patient yesterday evening. He is aware of the PET scan results. Currently I plan to discuss his case with our [facility] colleagues. Most likely we will recommend chemotherapy with PEB x 3. I informed the patient I would discuss further details on his return visit. Allergies As of Date: 06/18/2023 Noted Allergy Reaction PENICILLINS 08/23/2021 2 - Rash SHELLFISH CONTAINING PRODUCTS 08/23/2021 14 - Other: See Comments Date Reviewed: 05/23/2023 Reviewed by: Lizabeth Friend Ma - Fully Assessed Reason for Visit: Results [95] Prescriptions as of 06/19/2023 - lisinopril-hydroCHLOROthia zide (ZESTORETIC) 20-12.5 mg per tablet Take 2 tablets by mouth every afternoon. - traZODone (DESYREL) 50 mg tablet Take 50 mg by mouth at bedtime as needed. - Omeprazole 20 mg TbEC Take by mouth. - multivit-min/ferrous fumarate (MULTI VITAMIN ORAL) Refill(s) 0 - Zinc 50 mg tab Take by mouth. Problem List As Of Date 06/18/2023 Noted Resolved Seminoma of descended right testis (HCC) [C62.1*02/14/2023 Encounter Status:Closed by FLAVIO MYERS on 06/19/23 [facility] PET+CT Guidance for localiza tion of tumor of Skull base to mid-thigh-- W 18F-FDG Tammi 06-10-2023 IMPRESSION: 1. Neck: No suspicious hypermetabolic foci 2. Chest: No evidence of FDG avid neoplastic process 3. Abdomen and pelvis: Hypermetabolic aortocaval lymph node suspicious for metastases. Hypermetabolic foci of subcutaneous thickening in the gluteal/inguinal regions possibly inflammatory. 4. Skeleton: No hypermetabolic osseous lesions Transcribe Date/Time: Jun 09 2023 10:30A Dictated by: ANJALI BEGUM MD This examination was interpreted and the report reviewed and electronically signed by: ANJALI BEGUM MD on Jun 10 2023 8:21PM EST Thank you for allowing us to participate in the care of your patient. Should there be any questions regarding this interpretation, please call [phone]. If you are unable to reach us at the number above, please feel free to contact [facility] eRadiology at [phone]. DIVISION OF RADIOLOGY * * *Final Report* * * DATE OF EXAM: Jun 07 2023 3:22PM NRN [id number] - NM PET/CT SKULL-THIGH INIT / PROCEDURE REASON: 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) * * * * Physician Interpretation * * * * RESULT: FDG PET/CT SCAN: CLINICAL HISTORY: Malignant neoplasm of testis. INDICATION: Initial treatment strategy. TECHNIQUE: 20 mCi 18-FDG IV, followed about 1 hour later by PET imaging from base of the skull to proximal femur. Non contrast CT was performed for attenuation correction and anatomic localization purposes. CT Dose-Length Product (DLP): 510 mGy*cm. CT Dose Reduction Employed: Yes BLOOD GLUCOSE: 90 mg/dL Correlation: CT chest abdomen and pelvis dated 05/17/2023 RESULT: NECK: Likely physiological activity in the oral cavity, tonsillar regions, salivary glands, visualized brain,larynx. Diffuse uptake in the tonsillar regions. There is a mild activity right level 2 lymph node measuring about 1 x 1.2 cm (max SUV 4.4). Favored to be inflammatory. CHEST: Mild activity right paratracheal lymph node measures 1 x 1.2 cm (max SUV 2.8) likely reactive. There is no hypermetabolic axillary lymphadenopathy. There are no hypermetabolic foci in the lungs. ABDOMEN AND PELVIS: The liver is slightly heterogeneous activity but no focal lesions are identified. There are no hypermetabolic foci in the liver, spleen, adrenals. There is a hypermetabolic aortocaval lymph node measuring about 1 x 1.2 cm (max SUV 10.1) suspicious for metastases. Physiologic activity is noted in the liver, renal collecting system, bladder and bowel. Foci of mild to moderately increased activity associated with subcutaneous thickening in the bilateral medial gluteal, inguinal, right posterior gluteal regions (max SUV 13) favored to be inflammatory. SKELETON: There are no hypermetabolic osseous lesions. 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 INDICATION: Initial treatment strategy. TECHNIQUE: 20 mCi 18-FDG IV, followed about 1 hour later by PET imaging from base of the skull to proximal femur. Non contrast CT was performed for attenuation correction and anatomic localization purposes. CT Dose-Length Product (DLP): 510 mGy*cm. CT Dose Reduction Employed: Yes BLOOD GLUCOSE: 90 mg/dL Correlation: CT chest abdomen and pelvis dated 05/17/2023 RESULT: NECK: Likely physiological activity in the oral cavity, tonsillar regions, salivary glands, visualized brain,larynx. Diffuse uptake in the tonsillar regions. There is a mild activity right level 2 lymph node measuring about 1 x 1.2 cm (max SUV 4.4). Favored to be inflammatory. CHEST: Mild activity right paratracheal lymph node measures 1 x 1.2 cm (max SUV 2.8) likely reactive. There is no hypermetabolic axillary lymphadenopathy. There are no hypermetabolic foci in the lungs. ABDOMEN AND PELVIS: The liver is slightly heterogeneous activity but no focal lesions are identified. There are no hypermetabolic foci in the liver, spleen, adrenals. There is a hypermetabolic aortocaval lymph node measuring about 1 x 1.2 cm (max SUV 10.1) suspicious for metastases. Physiologic activity is noted in the liver, renal collecting system, bladder and bowel. Foci of mild to moderately increased activity associated with subcutaneous thickening in the bilateral medial gluteal, inguinal, right posterior gluteal regions (max SUV 13) favored to be inflammatory. SKELETON: There are no hypermetabolic osseous lesions. Engine Oiler (topogram) images:No additional findings IMPRESSION IMPRESSION: 1. Neck: No suspicious hypermetabolic foci 2. Chest: No evidence of FDG avid neoplastic process 3. Abdomen and pelvis: Hypermetabolic aortocaval lymph node suspicious for metastases. Hypermetabolic foci of subcutaneous thickening in the gluteal/inguinal regions possibly inflammatory. 4. Skeleton: No hypermetabolic osseous lesions Transcribe Date/Time: Jun 09 2023 10:30A Dictated by: ANJALI BEGUM MD This examination was interpreted and the report reviewed and electronically signed by: ANJALI BEGUM MD on Jun 10 2023 8:21PM EST Thank you for allowing us to participate in the care of your patient. Should there be any questions regarding this interpretation, please call [phone]. If you are unable to reach us at the number above, please feel free to contact [facility]Radiology at [phone]. [facility] PET+CT Guidance for localiza tion of tumor of Skull base to mid-thigh-- W 18F-FDG IVOrdered By: Ccf Provider on 06-10-2023 [facility] GLUCOSE, BLOOD (POC)on 06-07 Glucose [Mass/Vol] 90 mg/dL 74 - 99 mg/dL [facility] Comment on above: Location:[facility], [address] [place] [address] , [place], [place], [address] The Accu-Chek Inform II glucose meter has not been approved for testing on patients receiving intensive medical intervention or therapy and results from this point of care glucose test should not be used for patient management decisions in these cases. Inaccurate results may also occur from other interfering factors, such as N-acetylcysteine (blood concentrations of greater than 5mg/dL), galactose, extremes of hematocrit (<10 or >65), or high doses of ascorbic acid (vitamin C) greater than 3mg/dL. Consider alternate testing mechanisms (e.g. core lab, blood gas instrument) in the above situations. 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 INDICATION: Initial treatment strategy. TECHNIQUE: 20 mCi 18-FDG IV, followed about 1 hour later by PET imaging from base of the skull to proximal femur. Non contrast CT was performed for attenuation correction and anatomic localization purposes. CT Dose-Length Product (DLP): 510 mGy*cm. CT Dose Reduction Employed: Yes BLOOD GLUCOSE: 90 mg/dL Correlation: CT chest abdomen and pelvis dated 05/17/2023 RESULT: NECK: Likely physiological activity in the oral cavity, tonsillar regions, salivary glands, visualized brain,larynx. Diffuse uptake in the tonsillar regions. There is a mild activity right level 2 lymph node measuring about 1 x 1.2 cm (max SUV 4.4). Favored to be inflammatory. CHEST: Mild activity right paratracheal lymph node measures 1 x 1.2 cm (max SUV 2.8) likely reactive. There is no hypermetabolic axillary lymphadenopathy. There are no hypermetabolic foci in the lungs. ABDOMEN AND PELVIS: The liver is slightly heterogeneous activity but no focal lesions are identified. There are no hypermetabolic foci in the liver, spleen, adrenals. There is a hypermetabolic aortocaval lymph node measuring about 1 x 1.2 cm (max SUV 10.1) suspicious for metastases. Physiologic activity is noted in the liver, renal collecting system, bladder and bowel. Foci of mild to moderately increased activity associated with subcutaneous thickening in the bilateral medial gluteal, inguinal, right posterior gluteal regions (max SUV 13) favored to be inflammatory. SKELETON: There are no hypermetabolic osseous lesions. Engine Oiler (topogram) images:No additional findings IMPRESSION: 1. Neck: No suspicious hypermetabolic foci 2. Chest: No evidence of FDG avid neoplastic process 3. Abdomen and pelvis: Hypermetabolic aortocaval lymph node suspicious for metastases. Hypermetabolic foci of subcutaneous thickening in the gluteal/inguinal regions possibly inflammatory. 4. Skeleton: No hypermetabolic osseous lesions Transcribe Date/Time: Jun 09 2023 10:30A Dictated by: ANJALI BEGUM MD This examination was interpreted and the report reviewed and electronically signed by: ANJALI BEGUM MD on Jun 10 2023 8:21PM EST Thank you for allowing us to participate in the care of your patient. Should there be any questions regarding this interpretation, please call [phone]. If you are unable to reach us at the number above, please feel free to contact [facility] eRadiology at [phone]. [id number] [facility] PET+CT Guidance for localiza tion of tumor of Skull base to mid-thigh-- W 18F-FDG Tammi 06-07-2023 Radiology Study observation (narrative) [facility] Consultation Noteon 05-24-20 Consultation Note [id number] Normal [facility] CNOVSPon 05-23-2023 CNOVSP Visit (SP) Office ( [facility]) -- JORDAN BENNETT ([id number]) 1975 M Date Time Provider Department 05/23/23 3:45 PM JORDAN PETERS During your visit today, we recorded the following information about you: Temperature Pulse Respiration Blood pressure 97.7 degrees 69/minute 16/minute 148/92 Weight 150.1 kg Jordan Peters MD 05/24/2023 8:08 AM Signed PATIENT NAME: Jordan Bennett DATE: 05/23/2023 PRIMARY CARE PHYSICIAN: Ashli Ni DO OTHER PHYSICIANS: Dr. Lewis, Dr. Jasso Portions of this encounter note have been copied from the note from 02/14/2023 and has been updated where appropriate, and reflect my current medical decision making from today. CC: This is a 48 year old male with a history of seminoma of the right testicle, seen for scheduled follow-up. INTERIM HISTORY: Since the patient's last visit here he has had no significant medical changes. Currently feels well with no complaints. No abdominal pain or other GI symptoms. No difficulty with urination. MEDICATIONS: Current Outpatient Medications Medication Sig traZODone (DESYREL) 50 mg tablet Take 50 mg by mouth at bedtime as needed. lisinopril (ZESTRIL, PRINIVIL) 20 mg tablet Take 20 mg by mouth once daily. Omeprazole 20 mg TbEC Take by mouth. multivit-min/ferrous fumarate (MULTI VITAMIN ORAL) Refill(s) 0 Zinc 50 mg tab Take by mouth. No current facility-administered medications for this visit. ALLERGIES: ALLERGIES Allergen Reactions Penicillins Rash Shellfish Containin* Other: See Comments PAST MEDICAL HISTORY: PAST MEDICAL HISTORY Diagnosis Date BPH (benign prostatic hyperplasia) Epididymal mass Hematuria Primary hypertension Testicular cancer (HCC) PAST SURGICAL HISTORY: PAST SURGICAL HISTORY Procedure Laterality Date CYSTOSCOPY PAST SURGICAL HISTORY OF Right 08/03/2021 FAMILY HISTORY: FAMILY HISTORY Problem Relation Age of Onset Brain Cancer Father Cancer Paternal Grandfather SOCIAL HISTORY: Social History Tobacco Use Smoking status: Never Smokeless tobacco: Never Vaping Use Vaping Use: Never used Substance Use Topics Alcohol use: Not Currently Drug use: Never COMPLETE REVIEW OF SYSTEMS: CONSTITUTION: Negative for pain, fatigue, weight loss, or appetite loss. EENT: Negative for mouth soreness, antibiotics use, epistaxis, visual problems, neck or facial swelling, fever/chills, bleeding gums, or hearing loss. CV: Negative for edema, calf swelling, palpitations, or chest pain. RESPIRATORY: Negative for cough, SOB, hemoptysis, or wheezing. GI: Negative for nausea/vomiting, heartburn, vomiting blood, dysphasia, diarrhea, blood in stool, constipation, early satiety, PICA, vegetarian, poor nutrition, abdominal fullness, or abdominal pain. NEUROLOGICAL: Negative for numbness/tingling, dizziness, gait disturbance, headache, speech disturbance, tremor, hemiparesis/sensory loss, or change in mental status. MUSCULOSKELETAL: Negative for joint pain, joint swelling, or proximal muscle weakness. SKIN: Negative for hair loss, bruising, nail changes, rash, itching, pallor, or jaundice. ENDO/URO: Negative for hot flashes, cold or heat intolerance, urinary frequency, urinary hesitancy, menorrhagia, or hematuria. PSYCH: Negative for anxiety, depression, or other. PHYSICAL EXAM: BP 148/92 Pulse 69 Temp 36.5 ?C (97.7 ?F) (Temporal) Resp 16 Wt (!) 150.1 kg (331 lb) SpO2 95% BMI 46.17 kg/m? General: Alert and oriented, no distress, pleasant and cooperative. Heart: Regular, normal S1 and S2, no murmurs, rubs, or gallops Lungs: Clear to auscultation bilaterally Abdomen: Benign Extremities: Feet/ankles without edema, posterior tibial pulses full and symmetrical PATHOLOGY: 08/03/2021 Radical right orchiectomy ([facility]) Classic seminoma testicle: 3.2 x 3.0 x 2.5 cm. Intratubular seminoma. The tumor focally invades epididymis and hilar soft tissue. Angiolymphatic invasion is present. The spermatic cord resection margin is free of neoplasm. LABORATORY DATA: Hemoglobin (g/dL) Date Value 05/17/2023 15.2 Hematocrit (%) Date Value 05/17/2023 43.7 WBC (k/uL) Date Value 05/17/2023 7.66 Platelet Count (k/uL) Date Value 05/17/2023 252 RADIOLOGY/OTHER STUDIES: 05/17/2023 CT chest IMPRESSION: 1. Stable CT of the chest. Patchy groundglass opacities in both lower lobes, likely infectious/inflammatory in nature. No new lobar consolidation or pleural effusion. 2. Stable right upper lobe 3 mm nodule. No new or enlarging nodules are seen. 3. Right paratracheal node measuring 1.2 cm in short axis. No bulky intrathoracic adenopathy is visualized. 05/17/2023 CT abdomen/pelvis IMPRESSION: 1. Interval increase in size of aortocaval node, now measuring up to 1.3 cm. Other previously described lymph nodes appear unchanged. No new (more content not included)... [facility] BETA HCG QUANT TUMOR MARKERo n 05-20-2023 HCG.beta subunit Qn m[IU]/mL [facility] Comment on above: INTERPRETIVE INFORMA TION: Beta hCG, Serum Quantitation Tumor Marker Human chorionic gonadotropin (hCG) is a valuable aid in the management of patients with trophoblastic tumors, nonseminomatous testicular tumors and seminomas when used in conjunction with information available from the clinical evaluation and other diagnostic procedures. Increased serum HCG concentrations have also been observed in melanoma, carcinomas of the breast, gastrointestinal tract, lung, and ovaries, and in benign conditions, including cirrhosis, duodenal ulcer, and inflammatory bowel disease. This result cannot be interpreted as absolute evidence of the presence or absence of malignant disease. This result is not interpretable as a tumor marker in females. The combination of the specific monoclonal antibodies used in the David Beta HCG electrochemiluminescent immunoassay recognize the holo-hormone, nicked forms of hCG, the beta-core fragment, and the free beta-subunit. Results obtained with different test methods or kits cannot be used interchangeably. Although this assay is FDA cleared for use in the detection of , it is not labeled for use as a tumor marker. Access complete set of age- and/or gender-specific reference intervals for this test in the [facility] Test [facility] ([facility]). This test was developed and its performance characteristics determined by [facility]. It has not been cleared or approved by the US Food and Drug Administration. This test was performed in a CLIA certified laboratory and is intended for clinical purposes. Performed By: [facility] [address] [place] [address] Digital Tech: Cam Archibald MD, PhD [place] Number: [id number] CT Abdomen and Pelvis Shannon Cadena 05-20-2023 IMPRESSION: 1. Interval increase in size of aortocaval node, now measuring up to 1.3 cm. Other previously described lymph nodes appear unchanged. No new abdominal or pelvic adenopathy is visualized. 2. No additional findings of abdominal or pelvic metastatic disease. 3. Mild hepatic steatosis. Transcribe Date/Time: May 20 2023 9:42A Dictated by: OMAIRA HERRERA MD This examination was interpreted and the report reviewed and electronically signed by: OMAIRA HERRERA MD on May 20 2023 9:51AM EST Thank you for allowing us to participate in the care of your patient. Should there be any questions regarding this interpretation, please call [phone]. If you are unable to reach us at the number above, please feel free to contact [facility] at [phone]. DIVISION OF RADIOLOGY * * *Final Report* * * DATE OF EXAM: May 17 2023 11:12AM [facility] 0530 - CT ABD/PEL W IVCON / 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 TECHNIQUE: CT of the abdomen and pelvis was performed using standard technique, scanning from just above the dome of the diaphragm to the symphysis pubis. MQ: CTAP_3 Contrast: IV: 150 ml of Omnipaque 300 Oral: 500 ml of Omni 240 10-25ml diluted with water CT Radiation dose: Integrated Dose-length product (DLP) for this visit = 2040 mGy*cm. CT Dose Reduction Employed: mAs-kVp adjusted based on patient size-age COMPARISON: CT performed 10/31/2022 RESULT: Liver: The liver is mildly decreased in attenuation, compatible with hepatic steatosis. No suspicious mass is visualized. Biliary: The gallbladder is unremarkable. No biliary ductal dilation is seen. Spleen: No mass. No splenomegaly. Pancreas: No mass or duct dilation. Adrenals: No mass. Kidneys: No mass, calculus or hydronephrosis. GI tract: No dilation or wall thickening. Lymph nodes: There has been interval increase in size of an aortocaval node (3:75), now measuring 1.3 cm in short axis, previously 0.8 cm. An aortocaval node inferior to this (3:81) appears stable, measuring 0.7 cm. No bulky upper abdominal or mesenteric adenopathy is seen. A left external iliac node is visualized measuring up to 1.3 cm in short axis, stable. Mesentery/Peritoneum: No ascites or mass. Retroperitoneum: No mass. Vasculature: - Abdominal aorta and iliac arteries: No aneurysm. - Celiac and SMA: Patent without stenosis. - Portal venous system (SMV, splenic vein, portal vein and branches): Patent. - Hepatic veins: Patent. Pelvis: The urinary bladder is unremarkable. No pelvic mass or fluid collection is seen. Bones/Soft Tissues: Degenerative changes are noted in the lumbar spine. No destructive osseous lesions are seen. Superficial soft tissues are unremarkable. Lower thorax: A chest CT performed will be reported separately. Engine Oiler (topogram) images: No additional findings. DIVISION OF RADIOLOGY Provider, [facility] - 05/20/2023 * * *Final Report* * * DATE OF EXAM: May 17 2023 11:12AM [facility] 0530 - CT ABD/PEL W IVCON / 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 TECHNIQUE: CT of the abdomen and pelvis was performed using standard technique, scanning from just above the dome of the diaphragm to the symphysis pubis. MQ: CTAP_3 Contrast: IV: 150 ml of Omnipaque 300 Oral: 500 ml of Omni 240 10-25ml diluted with water CT Radiation dose: Integrated Dose-length product (DLP) for this visit = 2040 mGy*cm. CT Dose Reduction Employed: mAs-kVp adjusted based on patient size-age COMPARISON: CT performed 10/31/2022 RESULT: Liver: The liver is mildly decreased in attenuation, compatible with hepatic steatosis. No suspicious mass is visualized. Biliary: The gallbladder is unremarkable. No biliary ductal dilation is seen. Spleen: No mass. No splenomegaly. Pancreas: No mass or duct dilation. Adrenals: No mass. Kidneys: No mass, calculus or hydronephrosis. GI tract: No dilation or wall thickening. Lymph nodes: There has been interval increase in size of an aortocaval node (3:75), now measuring 1.3 cm in short axis, previously 0.8 cm. An aortocaval node inferior to this (3:81) appears stable, measuring 0.7 cm. No bulky upper abdominal or mesenteric adenopathy is seen. A left external iliac node is visualized measuring up to 1.3 cm in short axis, stable. Mesentery/Peritoneum: No ascites or mass. Retroperitoneum: No mass. Vasculature: - Abdominal aorta and iliac arteries: No aneurysm. - Celiac and SMA: Patent without stenosis. - Portal venous system (SMV, splenic vein, portal vein and branches): Patent. - Hepatic veins: Patent. Pelvis: The urinary bladder is unremarkable. No pelvic mass or fluid collection is seen. Bones/Soft Tissues: Degenerative changes are noted in the lumbar spine. No destructive osseous lesions are seen. Superficial soft tissues are unremarkable. Lower thorax: A chest CT performed will be reported separately. Engine Oiler (topogram) images: No additional findings. IMPRESSION IMPRESSION: 1. Interval increase in size of aortocaval node, now measuring up to 1.3 cm. Other previously described lymph nodes appear unchanged. No new abdominal or pelvic adenopathy is visualized. 2. No additional findings of abdominal or pelvic metastatic disease. 3. Mild hepatic steatosis. Transcribe Date/Time: May 20 2023 9:42A Dictated by: OMAIRA HERRERA MD This examination was interpreted and the report reviewed and electronically signed by: OMAIRA HERRERA MD on May 20 2023 9:51AM EST Thank you for allowing us to participate in the care of your patient. Should there be any questions regarding this interpretation, please call [phone]. If you are unable to reach us at the number above, please feel free to contact [facility] at [phone]. [facility] CT Abdomen and Pelvis W cont rast IVOrdered By: [facility] Provider on 05-20-2023 [facility] CT Chest W contrast Tammi IMPRESSION: 1. Stable CT of the chest. Patchy groundglass opacities in both lower lobes, likely infectious/inflammatory in nature. No new lobar consolidation or pleural effusion. 2. Stable right upper lobe 3 mm nodule. No new or enlarging nodules are seen. 3. Right paratracheal node measuring 1.2 cm in short axis. No bulky intrathoracic adenopathy is visualized. Transcribe Date/Time: May 20 2023 9:19A Dictated by: OMAIRA HERRERA MD This examination was interpreted and the report reviewed and electronically signed by: OMAIRA HERRERA MD on May 20 2023 9:42AM EST Thank you for allowing us to participate in the care of your patient. Should there be any questions regarding this interpretation, please call [phone]. If you are unable to reach us at the number above, please feel free to contact [facility] at [phone]. DIVISION OF RADIOLOGY * * *Final Report* * * DATE OF EXAM: May 17 2023 11:12AM [facility] 0539 - CT CHEST W IVCON / PROCEDURE REASON: Seminoma of descended right testis (HCC) * * * * Physician Interpretation * * * * RESULT: EXAMINATION: CHEST CT WITH CONTRAST CLINICAL HISTORY: History of seminoma. Follow-up. Technique: Spiral CT acquisition of the chest from the thoracic inlet to the upper abdomen following IV contrast. MQ: CTCW_6 Contrast: 150 mL Omnipaque [address] Radiation dose: Integrated Dose-length product (DLP) for this visit = 2040 mGy*cm CT Dose Reduction Employed: mAs-kVp adjusted based on patient size-age Comparison: CT chest performed 10/31/2022 RESULT: Limitations: None. Lines, tubes, and devices: None. Lung parenchyma and airways: There is dependent atelectasis. No lobar consolidation is noted. Minimal patchy groundglass opacity is again noted in both lower lobes, unchanged from prior study. Findings are likely infectious/inflammatory in etiology. There is a stable 3 mm nodule in the right upper lobe. No new or enlarging nodules are visualized. The central airways are widely patent. Pleural space: No pleural effusion. No pleural thickening. Lower neck, lymph nodes, and mediastinum: There is a stable right paratracheal node measuring 1.2 cm in short axis. Additional subcentimeter mediastinal nodes are seen which are not enlarged by size criteria. No additional bulky intrathoracic adenopathy is visualized. Heart, pericardium, and thoracic vessels: The thoracic aorta and main pulmonary artery are normal in caliber. The cardiac chambers are normal in size. No coronary artery atherosclerotic calcifications are noted, although the study is not optimized for coronary assessment. No pericardial effusion or thickening. Bones and soft tissues: Degenerative changes are noted in the thoracic spine. Superficial soft tissues are unremarkable. Upper abdomen: A dedicated CT of the abdomen and pelvis was performed concurrently and is reported separately. Engine Oiler (topogram) images: No additional findings. DIVISION OF RADIOLOGY Provider, [facility] - 05/20/2023 * * *Final Report* * * DATE OF EXAM: May 17 2023 11:12AM [facility] 0539 - CT CHEST W IVCON / PROCEDURE REASON: Seminoma of descended right testis (HCC) * * * * Physician Interpretation * * * * RESULT: EXAMINATION: CHEST CT WITH CONTRAST CLINICAL HISTORY: History of seminoma. Follow-up. Technique: Spiral CT acquisition of the chest from the thoracic inlet to the upper abdomen following IV contrast. MQ: CTCW_6 Contrast: 150 mL Omnipaque [address] Radiation dose: Integrated Dose-length product (DLP) for this visit = 2040 mGy*cm CT Dose Reduction Employed: mAs-kVp adjusted based on patient size-age Comparison: CT chest performed 10/31/2022 RESULT: Limitations: None. Lines, tubes, and devices: None. Lung parenchyma and airways: There is dependent atelectasis. No lobar consolidation is noted. Minimal patchy groundglass opacity is again noted in both lower lobes, unchanged from prior study. Findings are likely infectious/inflammatory in etiology. There is a stable 3 mm nodule in the right upper lobe. No new or enlarging nodules are visualized. The central airways are widely patent. Pleural space: No pleural effusion. No pleural thickening. Lower neck, lymph nodes, and mediastinum: There is a stable right paratracheal node measuring 1.2 cm in short axis. Additional subcentimeter mediastinal nodes are seen which are not enlarged by size criteria. No additional bulky intrathoracic adenopathy is visualized. Heart, pericardium, and thoracic vessels: The thoracic aorta and main pulmonary artery are normal in caliber. The cardiac chambers are normal in size. No coronary artery atherosclerotic calcifications are noted, although the study is not optimized for coronary assessment. No pericardial effusion or thickening. Bones and soft tissues: Degenerative changes are noted in the thoracic spine. Superficial soft tissues are unremarkable. Upper abdomen: A dedicated CT of the abdomen and pelvis was performed concurrently and is reported separately. Engine Oiler (topogram) images: No additional findings. IMPRESSION IMPRESSION: 1. Stable CT of the chest. Patchy groundglass opacities in both lower lobes, likely infectious/inflammatory in nature. No new lobar consolidation or pleural effusion. 2. Stable right upper lobe 3 mm nodule. No new or enlarging nodules are seen. 3. Right paratracheal node measuring 1.2 cm in short axis. No bulky intrathoracic adenopathy is visualized. Transcribe Date/Time: May 20 2023 9:19A Dictated by: OMAIRA HERRERA MD This examination was interpreted and the report reviewed and electronically signed by: OMAIRA HERRERA MD on May 20 2023 9:42AM EST Thank you for allowing us to participate in the care of your patient. Should there be any questions regarding this interpretation, please call [phone]. If you are unable to reach us at the number above, please feel free to contact [facility] at [phone]. [facility] HCG.beta subunit Qnon 2022 [facility] AFP SerPl-mCncon 05-17-2023 AFP [Mass/Vol] ng/mL Normal <11.0 [facility] Comment on above: Order Comment: Speci men Type: BLOOD SPECIMENOrdering Facility: [facility] Address: [address] [place] [address] Result Comment: The test is typically used as an aid in managing hepatocellular carcinoma and non-seminomatous testicular cancer when used in conjunction with physical examination, histology, and other clinical evaluation procedures. Normal levels of AFP do not entirely exclude the possibility of the above-mentioned conditions, other malignancies, and chronic liver diseases. The normal range has not been established for newborns. The Alpha-Fetoprotein test was performed using the Siemens Centaur XP chemiluminometric immunoassay method. Results obtained with different assay methods or kits cannot be used interchangeably. Performed By: #### 1 834-1 ####[facility] [id number] [facility] [id number] [place] [address] [place] AFP [Mass/Vol]Ordered By: Gale Harkins on 05-17-2023 Interpretation and review of laboratory results Normal [facility] Result rechecked. [facility] ALPHA FETOPROTEIN BLOrdered By: Nely Harkins on 05-17-2023 AFP [Mass/Vol] ng/mL NINF - 11.0 ng/mL [facility] Comment on above: The test is typicall y used as an aid in managing hepatocellular carcinoma and non-seminomatous testicular cancer when used in conjunction with physical examination, histology, and other clinical evaluation procedures. Normal levels of AFP do not entirely exclude the possibility of the above-mentioned conditions, other malignancies, and chronic liver diseases. The normal range has not been established for newborns. The Alpha-Fetoprotein test was performed using the Siemens Centaur XP chemiluminometric immunoassay method. Results obtained with different assay methods or kits cannot be used interchangeably. BETA HCG QUANT TUMOR MARKERo n 05-17-2023 BETA HCG QUANT TUMOR MARKER <1 Normal 0-3 [facility] Comment on above: Order Comment: Speci men Type: BLOOD SPECIMENOrdering Facility: [facility] Address: [place] [address] Result Comment: INTE RPRETIVE INFORMATION: Beta hCG, Serum Quantitation Tumor Marker Human chorionic gonadotropin (hCG) is a valuable aid in the management of patients with trophoblastic tumors, nonseminomatous testicular tumors and seminomas when used in conjunction with information available from the clinical evaluation and other diagnostic procedures. Increased serum HCG concentrations have also been observed in melanoma, carcinomas of the breast, gastrointestinal tract, lung, and ovaries, and in benign conditions, including cirrhosis, duodenal ulcer, and inflammatory bowel disease. This result cannot be interpreted as absolute evidence of the presence or absence of malignant disease. This result is not interpretable as a tumor marker in females. The combination of the specific monoclonal antibodies used in the David Beta HCG electrochemiluminescent immunoassay recognize the holo-hormone, nicked forms of hCG, the beta-core fragment, and the free beta-subunit. Results obtained with different test methods or kits cannot be used interchangeably. Although this assay is FDA cleared for use in the detection of , it is not labeled for use as a tumor marker. Access complete set of age- and/or gender-specific reference intervals for this test in the [facility] Test Directory ([facility]). This test was developed and its performance characteristics determined by [facility]. It has not been cleared or approved by the [place] Food and Drug Administration. This test was performed in a CLIA certified laboratory and is intended for clinical purposes. Performed By: [facility] [address] [place] [address] Digital Tech: Cam Archibald MD, PhD CLIA Number: [id number] Performed By: #### B HCG ####[facility]IES[facility]IA [id number] [place] [id number] CBC W Auto Differential pane l (Bld)on 05-17-2023 Basophils (Bld) [#/Vol] 0.06 10*3/uL NINF [facility] Basophils/100 WBC (Bld) 0.8 % [facility] Differential cell count method Nom (Bld) Auto [facility] Eosinophils (Bld) [#/Vol] 0.21 10*3/uL [facility] Eosinophils/100 WBC (Bld) 2.7 % [facility] Erythrocyte distribution width (RBC) [Ratio] 12.9 % 11.5 - 15.0 % [facility] Hematocrit (Bld) [Volume fraction] 43.7 % 39.0 - 51.0 % [facility] Hemoglobin (Bld) [Mass/Vol] 15.2 g/dL 13.0 - 17.0 g/dL [facility] Immature granulocytes (Bld) [#/Vol] 0.03 10*3/uL [facility] Immature granulocytes/100 WBC (Bld) 0.4 % [facility] Lymphocytes (Bld) [#/Vol] 2.37 10*3/uL [facility] Lymphocytes/100 WBC (Bld) 30.9 % [facility] MCH (RBC) [Entitic mass] 29.5 pg 26.0 - 34.0 pg [facility] MCHC (RBC) [Mass/Vol] 34.8 g/dL 30.5 - 36.0 g/dL [facility] MCV (RBC) [Entitic vol] 84.7 fL 80.0 - 100.0 fL [facility] Monocytes (Bld) [#/Vol] 0.53 10*3/uL [facility] Monocytes/100 WBC (Bld) 6.9 % [facility] Neutrophils (Bld) [#/Vol] 4.46 10*3/uL [facility] Neutrophils/100 WBC (Bld) 58.3 % [facility] Nucleated RBC (Bld) [#/Vol] [facility] Nucleated RBC/100 WBC (Bld) [Ratio] 0.0 % /100 WBC [facility] Platelet mean volume (Bld) [Entitic vol] 10.4 fL 9.0 - 12.7 fL [facility] Platelets (Bld) [#/Vol] 252 10*3/uL [facility] RBC (Bld) [#/Vol] 5.16 10*6/uL 4.20 - 6.0 0 m/uL [facility] WBC (Bld) [#/Vol] 7.66 10*3/uL [facility] Basophils (Bld) [#/Vol] 0.06 10*3/uL Normal <0.11 [facility] Comment on above: Order Comment: Speci men Type: BLOOD SPECIMENOrdering Facility: [facility] Address: [address] [place] [address] Performed By: #### 5 7021-8 ####[facility] LABCLIA [id number] [place] [address] Basophils/100 WBC (Bld) 0.8 % Normal [facility] Comment on above: Order Comment: Speci men Type: BLOOD SPECIMENOrdering Facility: [facility] Address: [address] [place] [address] Performed By: #### 5 7021-8 ####[facility] LABCLIA [id number] [place] [address] Differential cell count method Nom (Bld) Auto Normal [facility] Comment on above: Order Comment: Speci men Type: BLOOD SPECIMENOrdering Facility: [facility] Address: [address] [place] [address] Performed By: #### 5 7021-8 ####[facility] LABCLIA [id number] [place] [address] Eosinophils (Bld) [#/Vol] 0.21 10*3/uL Normal <0.46 [facility] Comment on above: Order Comment: Speci men Type: BLOOD SPECIMENOrdering Facility: [facility] Address: [address] [place] [address] Performed By: #### 5 7021-8 ####[facility] LABCLIA [id number] [place] [address] Eosinophils/100 WBC (Bld) 2.7 % Normal [facility] Comment on above: Order Comment: Speci men Type: BLOOD SPECIMENOrdering Facility: [facility] Address: [address] [place] [address] Performed By: #### 5 7021-8 ####[facility] LABCLIA [id number] [place] [address] Erythrocyte distribution width (RBC) [Ratio] 12.9 % Normal 11.5-15.0 [facility] Comment on above: Order Comment: Speci men Type: BLOOD SPECIMENOrdering Facility: [facility] Address: [address] [place] [address] Performed By: #### 5 7021-8 ####[facility] LABCLIA [id number] [place] [address] Hematocrit (Bld) [Volume fraction] 43.7 % Normal 39.0-51.0 [facility] Comment on above: Order Comment: Speci men Type: BLOOD SPECIMENOrdering Facility: [facility] Address: [address] [place] [address] Performed By: #### 5 7021-8 ####[facility] LABCLIA [id number] [place] [address] Hemoglobin (Bld) [Mass/Vol] 15.2 g/dL Normal 13.0-17.0 [facility] Comment on above: Order Comment: Speci men Type: BLOOD SPECIMENOrdering Facility: [facility] Address: [address] [place] [address] Performed By: #### 5 7021-8 ####[facility] LABCLIA [id number] [place] [address] Immature granulocytes (Bld) [#/Vol] 0.03 10*3/uL Normal <0.10 [facility] Comment on above: Order Comment: Speci men Type: BLOOD SPECIMENOrdering Facility: [facility] Address: [address] [place] [address] Performed By: #### 5 7021-8 ####[facility] LABIA [id number] [place] [address] Immature granulocytes/100 WBC (Bld) 0.4 % Normal [facility] Comment on above: Order Comment: Speci men Type: BLOOD SPECIMENOrdering Facility: [facility] Address: [address] [place] [address] Performed By: #### 5 7021-8 ####[facility] LABCLIA [id number] [place] [address] Lymphocytes (Bld) [#/Vol] 2.37 10*3/uL Normal 1.00-4.00 [facility] Comment on above: Order Comment: Speci men Type: BLOOD SPECIMENOrdering Facility: [facility] Address: [address] [place] [address] Performed By: #### 5 7021-8 ####[facility] LABCLIA [id number] [place] [address] Lymphocytes/100 WBC (Bld) 30.9 % Normal [facility] Comment on above: Order Comment: Speci men Type: BLOOD SPECIMENOrdering Facility: [facility] Address: [address] [place] [address] Performed By: #### 5 7021-8 ####[facility] LABCLIA [id number] [place] [address] MCH (RBC) [Entitic mass] 29.5 pg Normal 26.0-34.0 [facility] Comment on above: Order Comment: Speci men Type: BLOOD SPECIMENOrdering Facility: [facility] Address: [address] [place] [address] Performed By: #### 5 7021-8 ####[facility] LABCLIA [id number] [place] [address] MCHC (RBC) [Mass/Vol] 34.8 g/dL Normal 30.5-36.0 [facility] Comment on above: Order Comment: Speci men Type: BLOOD SPECIMENOrdering Facility: [facility] Address: [address] [place] [address] Performed By: #### 5 7021-8 ####[facility] LABCLIA [id number] [place] [address] MCV (RBC) [Entitic vol] 84.7 fL Normal 80.0-100.0 [facility] Comment on above: Order Comment: Speci men Type: BLOOD SPECIMENOrdering Facility: [facility] Address: [address] [place] [address] Performed By: #### 5 7021-8 ####[facility] LABCLIA [id number] [place] [address] Monocytes (Bld) [#/Vol] 0.53 10*3/uL Normal <0.87 [facility] Comment on above: Order Comment: Speci men Type: BLOOD SPECIMENOrdering Facility: [facility] Address: [address] [place] [address] Performed By: #### 5 7021-8 ####[facility] LABCLIA [id number] [place] [address] Monocytes/100 WBC (Bld) 6.9 % Normal [facility] Comment on above: Order Comment: Speci men Type: BLOOD SPECIMENOrdering Facility: [facility] Address: [address] [place] [address] Performed By: #### 5 7021-8 ####[facility] LABCLIA [id number] [place] [address] Neutrophils (Bld) [#/Vol] 4.46 10*3/uL Normal 1.45-7.50 [facility] Comment on above: Order Comment: Speci men Type: BLOOD SPECIMENOrdering Facility: [facility] Address: [address] [place] [address] Performed By: #### 5 7021-8 ####[facility] LABCLIA [id number] [place] [address] Neutrophils/100 WBC (Bld) 58.3 % Normal [facility] Comment on above: Order Comment: Speci men Type: BLOOD SPECIMENOrdering Facility: [facility] Address: [address] [place] [address] Performed By: #### 5 7021-8 ####[facility] LABCLIA [id number] [place] [address] Nucleated RBC (Bld) [#/Vol] 10*3/uL Normal <0.01 [facility] Comment on above: Order Comment: Speci men Type: BLOOD SPECIMENOrdering Facility: [facility] Address: [address] [place] [address] Performed By: #### 5 7021-8 ####[facility] LABCLIA [id number] [place] [address] Nucleated RBC/100 WBC (Bld) [Ratio] 0.0 /100 WBC Normal [facility] Comment on above: Order Comment: Speci men Type: BLOOD SPECIMENOrdering Facility: [facility] Address: [address] [place] [address] Performed By: #### 5 7021-8 ####[facility] LABCLIA [id number] [place] [address] Platelet mean volume (Bld) [Entitic vol] 10.4 fL Normal 9.0-12.7 [facility] Comment on above: Order Comment: Speci men Type: BLOOD SPECIMENOrdering Facility: [facility] Address: [address] [place] [address] Performed By: #### 5 7021-8 ####[facility] LABCLIA [id number] [place] [address] Platelets (Bld) [#/Vol] 252 10*3/uL Normal 150-400 [facility] Comment on above: Order Comment: Speci men Type: BLOOD SPECIMENOrdering Facility: [facility] Address: [address] [place] [address] Performed By: #### 5 7021-8 ####[facility] LABCLIA [id number] [place] [address] RBC (Bld) [#/Vol] 5.16 10*6/uL Normal 4.20-6.00 [facility] Comment on above: Order Comment: Speci men Type: BLOOD SPECIMENOrdering Facility: [facility] Address: [address] [place] [address] Performed By: #### 5 7021-8 ####[facility] LABCLIA [id number] [place] [address] WBC (Bld) [#/Vol] 7.66 10*3/uL Normal 3.70-11.00 [facility] Comment on above: Order Comment: Speci men Type: BLOOD SPECIMENOrdering Facility: [facility] Address: [place] [address] Performed By: #### 5 7021-8 ####[facility] LABCLIA [id number] [place] [address] CT ABD/PEL W IVCONon 023 CT ABD/PEL W IVCON * * *Final Report* * * DATE OF EXAM: May 17 2023 11:12AM [facility] 0530 - CT ABD/PEL W IVCON / 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 TECHNIQUE: CT of the abdomen and pelvis was performed using standard technique, scanning from just above the dome of the diaphragm to the symphysis pubis. MQ: CTAP_3 Contrast: IV: 150 ml of Omnipaque 300 Oral: 500 ml of Omni 240 10-25ml diluted with water CT Radiation dose: Integrated Dose-length product (DLP) for this visit = 2040 mGy*cm. CT Dose Reduction Employed: mAs-kVp adjusted based on patient size-age COMPARISON: CT performed 10/31/2022 RESULT: Liver: The liver is mildly decreased in attenuation, compatible with hepatic steatosis. No suspicious mass is visualized. Biliary: The gallbladder is unremarkable. No biliary ductal dilation is seen. Spleen: No mass. No splenomegaly. Pancreas: No mass or duct dilation. Adrenals: No mass. Kidneys: No mass, calculus or hydronephrosis. GI tract: No dilation or wall thickening. Lymph nodes: There has been interval increase in size of an aortocaval node (3:75), now measuring 1.3 cm in short axis, previously 0.8 cm. An aortocaval node inferior to this (3:81) appears stable, measuring 0.7 cm. No bulky upper abdominal or mesenteric adenopathy is seen. A left external iliac node is visualized measuring up to 1.3 cm in short axis, stable. Mesentery/Peritoneum: No ascites or mass. Retroperitoneum: No mass. Vasculature: - Abdominal aorta and iliac arteries: No aneurysm. - Celiac and SMA: Patent without stenosis. - Portal venous system (SMV, splenic vein, portal vein and branches): Patent. - Hepatic veins: Patent. Pelvis: The urinary bladder is unremarkable. No pelvic mass or fluid collection is seen. Bones/Soft Tissues: Degenerative changes are noted in the lumbar spine. No destructive osseous lesions are seen. Superficial soft tissues are unremarkable. Lower thorax: A chest CT performed will be reported separately. Engine Oiler (topogram) images: No additional findings. IMPRESSION: 1. Interval increase in size of aortocaval node, now measuring up to 1.3 cm. Other previously described lymph nodes appear unchanged. No new abdominal or pelvic adenopathy is visualized. 2. No additional findings of abdominal or pelvic metastatic disease. 3. Mild hepatic steatosis. Transcribe Date/Time: May 20 2023 9:42A Dictated by: OMAIRA HERRERA MD This examination was interpreted and the report reviewed and electronically signed by: OMAIRA HRERERA MD on May 20 2023 9:51AM EST Thank you for allowing us to participate in the care of your patient. Should there be any questions regarding this interpretation, please call [phone]. If you are unable to reach us at the number above, please feel free to contact [facility]Radiology at [phone]. 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 Follow-up. Technique: Spiral CT acquisition of the chest from the thoracic inlet to the upper abdomen following IV contrast. MQ: CTCW_6 Contrast: 150 mL Omnipaque [address] Radiation dose: Integrated Dose-length product (DLP) for this visit = 2040 mGy*cm CT Dose Reduction Employed: mAs-kVp adjusted based on patient size-age Comparison: CT chest performed 10/31/2022 RESULT: Limitations: None. Lines, tubes, and devices: None. Lung parenchyma and airways: There is dependent atelectasis. No lobar consolidation is noted. Minimal patchy groundglass opacity is again noted in both lower lobes, unchanged from prior study. Findings are likely infectious/inflammatory in etiology. There is a stable 3 mm nodule in the right upper lobe. No new or enlarging nodules are visualized. The central airways are widely patent. Pleural space: No pleural effusion. No pleural thickening. Lower neck, lymph nodes, and mediastinum: There is a stable right paratracheal node measuring 1.2 cm in short axis. Additional subcentimeter mediastinal nodes are seen which are not enlarged by size criteria. No additional bulky intrathoracic adenopathy is visualized. Heart, pericardium, and thoracic vessels: The thoracic aorta and main pulmonary artery are normal in caliber. The cardiac chambers are normal in size. No coronary artery atherosclerotic calcifications are noted, although the study is not optimized for coronary assessment. No pericardial effusion or thickening. Bones and soft tissues: Degenerative changes are noted in the thoracic spine. Superficial soft tissues are unremarkable. Upper abdomen: A dedicated CT of the abdomen and pelvis was performed concurrently and is reported separately. Engine Oiler (topogram) images: No additional findings. IMPRESSION: 1. Stable CT of the chest. Patchy groundglass opacities in both lower lobes, likely infectious/inflammatory in nature. No new lobar consolidation or pleural effusion. 2. Stable right upper lobe 3 mm nodule. No new or enlarging nodules are seen. 3. Right paratracheal node measuring 1.2 cm in short axis. No bulky intrathoracic adenopathy is visualized. Transcribe Date/Time: May 20 2023 9:19A Dictated by: OMAIRA HERRERA MD This examination was interpreted and the report reviewed and electronically signed by: OMAIRA HERRERA MD on May 20 2023 9:42AM EST Thank you for allowing us to participate in the care of your patient. Should there be any questions regarding this interpretation, please call [phone]. If you are unable to reach us at the number above, please feel free to contact [facility]Radiology at [phone]. [id number] Normal [facility] metabolic 2000 panelon 05-17-2023 Albumin [Mass/Vol] 4.5 g/dL 3.9 - 4.9 g/dL [facility] ALP [Catalytic activity/Vol] 65 U/L 38 - 113 U/L [facility] ALT [Catalytic activity/Vol] 17 U/L 10 - 54 U/L [facility] Anion gap [Moles/Vol] 10 mmol/L 9 - 18 mmol/L [facility] AST [Catalytic activity/Vol] 17 U/L 14 - 40 U/L [facility] Bilirubin [Mass/Vol] 0.5 mg/dL 0.2 - 1 .3 mg/dL [facility] Calcium [Mass/Vol] 9.5 mg/dL 8.5 - 10. 2 mg/dL [facility] Chloride [Moles/Vol] 106 mmol/L High 97 - 10 5 mmol/L [facility] CO2 [Moles/Vol] 24 mmol/L 22 - 30 mmol/L [facility] Creatinine [Mass/Vol] 0.95 mg/dL 0.73 - 1.22 mg/dL [facility] GFR/1.73 sq M.predicted among non-blacks MDRD (S/P/Bld) [Vol rate/Area] 98 mL/min/{1.73_m2} - PINF [facility] Comment on above: Estimated Glomerular Filtration Rate (eGFR) is calculated using the 2020 CKD-EPI creatinine equation. This equation utilizes serum creatinine, sex, and age as parameters. The creatinine assay has traceable calibration to isotope dilution-mass spectrometry. Refer to KDIGO guidelines for clinical interpretation. In patients with unstable renal function, e.g. those with acute kidney injury, the eGFR may not accurately reflect actual GFR. Glucose [Mass/Vol] 103 mg/dL High 74 - 99 mg/dL [facility] Comment on above: The [place] Di[employer] s Association (ADA) provides guidance for cutoff values for fasting glucose and random glucose. The ADA defines fasting as no caloric intake for at least 8 hours. Fasting plasma glucose results between 100 to 125 mg/dL indicate increased risk for diabetes (prediabetes). Fasting plasma glucose results greater than or equal to 126 mg/dL meet the criteria for diagnosis of diabetes. In the absence of unequivocal hyperglycemia, results should be confirmed by repeat testing. In a patient with classic symptoms of hyperglycemia or hyperglycemic crisis, random plasma glucose results greater than or equal to 200 mg/dL meet the criteria for diagnosis of diabetes. Reference: Standards of Medical Care in Diabetes 2016, [place] [employer]. Diabetes Care. 2016.39(Suppl 1). Interpretation and review of laboratory results Abnormal [facility] Potassium [Moles/Vol] 4.1 mmol/L 3.7 - 5.1 mmol/L [facility] Protein [Mass/Vol] 7.1 g/dL 6.3 - 8.0 g/dL [facility] Sodium [Moles/Vol] 140 mmol/L 136 - 144 mmol/L [facility] Urea nitrogen [Mass/Vol] 22 mg/dL 9 - 24 mg/dL [facility] Albumin [Mass/Vol] 4.5 g/dL Normal 3.9-4.9 [facility] Comment on above: Order Comment: Speci men Type: BLOOD SPECIMENOrdering Facility: [facility] Address: [address] [place] [address] Performed By: #### 2 532-0, ####[facility] LABCLIA [id number] [place] [address] ALP [Catalytic activity/Vol] 65 U/L Normal 38-113 [facility] Comment on above: Order Comment: Speci men Type: BLOOD SPECIMENOrdering Facility: [facility] Address: [address] [place] [address] Performed By: #### 2 532-0, ####[facility] LABCLIA [id number] [place] [address] ALT [Catalytic activity/Vol] 17 U/L Normal 10-54 [facility] Comment on above: Order Comment: Speci men Type: BLOOD SPECIMENOrdering Facility: [facility] Address: [address] [place] [address] Performed By: #### 2 532-0, ####[facility] LABCLIA [id number] [place] [address] Anion gap [Moles/Vol] 10 mmol/L Normal 9-18 [facility] Comment on above: Order Comment: Speci men Type: BLOOD SPECIMENOrdering Facility: [facility] Address: [address] [place] [address] Performed By: #### 2 532-0, ####[facility] LABCLIA [id number] [place] [address] AST [Catalytic activity/Vol] 17 U/L Normal 14-40 [facility] Comment on above: Order Comment: Speci men Type: BLOOD SPECIMENOrdering Facility: [facility] Address: [address] [place] [address] Performed By: #### 2 532-0, ####[facility] LABIA [id number] [place] [address] Bilirubin [Mass/Vol] 0.5 mg/dL Normal 0.2-1.[address] [facility] Comment on above: Order Comment: Speci men Type: BLOOD SPECIMENOrdering Facility: [facility] Address: [address] [place] [address] Performed By: #### 2 532-0, ####[facility] LABCLIA [id number] [place] [address] Calcium [Mass/Vol] 9.5 mg/dL Normal 8.5-10.2 [facility] Comment on above: Order Comment: Speci men Type: BLOOD SPECIMENOrdering Facility: [facility] Address: [address] [place] [address] Performed By: #### 2 532-0, ####[facility] LABCLIA [id number] [place] [address] Chloride [Moles/Vol] 106 mmol/L High 97-[address] [facility] Comment on above: Order Comment: Speci men Type: BLOOD SPECIMENOrdering Facility: [facility] Address: [address] [id number] Performed By: #### 2 532-0, ####[facility] LABCLIA [id number] [place] [address] CO2 [Moles/Vol] 24 mmol/L Normal 22-30 [facility] Comment on above: Order Comment: Speci men Type: BLOOD SPECIMENOrdering Facility: [facility] Address: [address] [place] [address] Performed By: #### 2 532-0, ####[facility] LABCLIA [id number] [place] [address] Creatinine [Mass/Vol] 0.95 mg/dL Normal 0.73-1.22 [facility] Comment on above: Order Comment: Speci men Type: BLOOD SPECIMENOrdering Facility: [facility] Address: [address] [place] [address] Performed By: #### 2 532-0, ####[facility] LABCLIA [id number] [place] [address] Creatinine and Glomerular filtration rate.predicted panel (S/P/Bld) 98 mL/min/1.73m??? Normal >=60 [facility] Comment on above: Order Comment: Speci men Type: BLOOD SPECIMENOrdering Facility: [facility] Address: [address] [place] [address] Result Comment: Stefanie mated Glomerular Filtration Rate (eGFR) is calculated using the 2020 CKD-EPI creatinine equation. This equation utilizes serum creatinine, sex, and age as parameters. The creatinine assay has traceable calibration to isotope dilution-mass spectrometry. Refer to KDIGO guidelines for clinical interpretation. In patients with unstable renal function, e.g. those with acute kidney injury, the eGFR may not accurately reflect actual GFR. Performed By: #### 2 532-0, ####[facility] LABCLIA [id number] [place] [address] Glucose [Mass/Vol] 103 mg/dL High 74-99 [facility] Comment on above: Order Comment: Speci men Type: BLOOD SPECIMENOrdering Facility: [facility] Address: [address] [place] [address] Result Comment: The [place] Diabetes Association (ADA) provides guidance for cutoff values for fasting glucose and random glucose. The ADA defines fasting as no caloric intake for at least 8 hours. Fasting plasma glucose results between 100 to 125 mg/dL indicate increased risk for diabetes (prediabetes). Fasting plasma glucose results greater than or equal to 126 mg/dL meet the criteria for diagnosis of diabetes. In the absence of unequivocal hyperglycemia, results should be confirmed by repeat testing. In a patient with classic symptoms of hyperglycemia or hyperglycemic crisis, random plasma glucose results greater than or equal to 200 mg/dL meet the criteria for diagnosis of diabetes. Reference: Standards of Medical Care in Diabetes 2016, [place] [employer]. Diabetes Care. 2016.39(Suppl 1). Performed By: #### 2 532-0, 50437-0 ####[facility] LABCLIA [id number] [place] [address] Potassium [Moles/Vol] 4.1 mmol/L Normal 3.7-5.1 [facility] Comment on above: Order Comment: Speci men Type: BLOOD SPECIMENOrdering Facility: [facility] Address: [address] [place] [address] Performed By: #### 2 532-0, ####[facility] LABCLIA [id number] [place] [address] Protein [Mass/Vol] 7.1 g/dL Normal 6.3-8.0 [facility] Comment on above: Order Comment: Speci men Type: BLOOD SPECIMENOrdering Facility: [facility] Address: [address] [place] [address] Performed By: #### 2 532-0, ####[facility] LABCLIA [id number] [place] [address] Sodium [Moles/Vol] 140 mmol/L Normal 136-144 [facility] Comment on above: Order Comment: Speci men Type: BLOOD SPECIMENOrdering Facility: [facility] Address: [address] [place] [address] Performed By: #### 2 532-0, 26108-7 ####[facility] LABCLIA [id number] [place] [address] Urea nitrogen [Mass/Vol] 22 mg/dL Normal 9-24 [facility] Comment on above: Order Comment: Speci lenin Type: BLOOD SPECIMENOrdering Facility: [facility] Address: [address] [place] [address] Performed By: #### 2 532-0, ####[facility] LABCLIA [id number] [place] [address] LD LACTATE DEHYDROOrdered By : Umu Negro on 05-17-2023 LDH [Catalytic activity/Vol] 211 U/L 135 - 225 U/L [facility] Comment on above: Hemolysis present. T he origin of the hemolysis, in vitro versus an in vivo hemolytic process, cannot be distinguished via this assay alone. In vitro hemolysis may lead to non-physiological (spurious) elevation in lactate dehydrogenase (LDH) results. The result should be interpreted in context of the clinical setting and other test results. Suggest reorder as clinically indicated. LDH SerPl-cCncon 05-17-2023 LDH [Catalytic activity/Vol] 211 U/L Normal 135-225 [facility] Comment on above: Order Comment: Speci lenin Type: BLOOD SPECIMENOrdering Facility: [facility] Address: [address] [place] [address] Result Comment: Hemo lysis present. The origin of the hemolysis, in vitro versus an in vivo hemolytic process, cannot be distinguished via this assay alone. In vitro hemolysis may lead to non-physiological (spurious) elevation in lactate dehydrogenase (LDH) results. The result should be interpreted in context of the clinical setting and other test results. Suggest reorder as clinically indicated. Performed By: #### 2 532-0, 86074-0 ####[facility] LABCLIA [id number] [place] [address] LDH [Catalytic activity/Vol] Ordered By: Umu Negro on 05-17-2023 Interpretation and review of laboratory results Normal [facility] No Panel Informationon 05-17 Radiology Study observation (narrative) [facility] BETA HCG QUANT TUMOR MARKERo n 11-03-2022 HCG.beta subunit Qn m[IU]/mL [facility] Comment on above: INTERPRETIVE INFORMA TION: Beta hCG, Serum Quantitation Tumor Marker Human chorionic gonadotropin (hCG) is a valuable aid in the management of patients with trophoblastic tumors, nonseminomatous testicular tumors and seminomas when used in conjunction with information available from the clinical evaluation and other diagnostic procedures. Increased serum HCG concentrations have also been observed in melanoma, carcinomas of the breast, gastrointestinal tract, lung, and ovaries, and in benign conditions, including cirrhosis, duodenal ulcer, and inflammatory bowel disease. This result cannot be interpreted as absolute evidence of the presence or absence of malignant disease. This result is not interpretable as a tumor marker in females. The combination of the specific monoclonal antibodies used in the David Beta HCG electrochemiluminescent immunoassay recognize the holo-hormone, nicked forms of hCG, the beta-core fragment, and the free beta-subunit. Results obtained with different test methods or kits cannot be used interchangeably. Although this assay is FDA cleared for use in the detection of , it is not labeled for use as a tumor marker. Access complete set of age- and/or gender-specific reference intervals for this test in the [facility] Directory ([facility]). This test was developed and its performance characteristics determined by [facility]. It has not been cleared or approved by the [place] Food and Drug Administration. This test was performed in a CLIA certified laboratory and is intended for clinical purposes. Performed By: [facility] [address] [place] [address] Digital Tech: Cam Archibald MD, PhD HCG.beta subunit Qnon 2022 [facility] AFP [Mass/Vol]Ordered By: Esvin Cervantes on 11-01-2022 Interpretation and review of laboratory results Normal [facility] ALPHA FETOPROTEIN BLOrdered By: Franky Cervantes on 11-01-2022 AFP [Mass/Vol] ng/mL NINF - 11.0 ng/mL [facility] Comment on above: Result rechecked. The test is typically used as an aid in managing hepatocellular carcinoma and non-seminomatous testicular cancer when used in conjunction with physical examination, histology, and other clinical evaluation procedures. Normal levels of AFP do not entirely exclude the possibility of the above-mentioned conditions, other malignancies, and chronic liver diseases. The normal range has not been established for newborns. The Alpha-Fetoprotein test was performed using the Siemens Centaur XP chemiluminometric immunoassay method. Results obtained with different assay methods or kits cannot be used interchangeably. CT Abdomen and Pelvis W cont rast Tammi 11-01-2022 IMPRESSION: 1. Slight interval increase in size of aortocaval nodes, nonspecific. Findings may be reactive in nature. Recommend attention to this area on follow-up exams. 2. Stable left external iliac adenopathy. 3. Otherwise, no findings of abdominal or pelvic metastatic disease. 4. Mild hepatic steatosis. Transcribe Date/Time: Nov 01 2022 11:53A Dictated by: OMAIRA HERRERA MD This examination was interpreted and the report reviewed and electronically signed by: OMAIRA HERRERA MD on Nov 01 2022 12:02PM EST Thank you for allowing us to participate in the care of your patient. Should there be any questions regarding this interpretation, please call [phone]. If you are unable to reach us at the number above, please feel free to contact [facility] at [phone]. DIVISION OF RADIOLOGY * * *Final Report* * * DATE OF EXAM: Oct 31 2022 2:00PM [facility] 0530 - CT ABD/PEL W IVCON / PROCEDURE REASON: Testicular cancer, seminoma, monitor * * * * Physician Interpretation * * * * RESULT: EXAMINATION: CT ABDOMEN AND PELVIS WITH IV CONTRAST CLINICAL HISTORY: History of testicular cancer. TECHNIQUE: CT of the abdomen and pelvis was performed using standard technique, scanning from just above the dome of the diaphragm to the symphysis pubis. MQ: CTAP_3 Contrast: IV: 150 ml of Omnipaque 300 Oral: 500 ml of Omni 240 10-25ml diluted with water CT Radiation dose: Integrated Dose-length product (DLP) for this visit = 1981 mGy*cm. CT Dose Reduction Employed: Automated exposure control (AEC) COMPARISON: CT performed 04/03/2022 RESULT: Liver: The liver is diffusely decreased in attenuation, compatible with hepatic steatosis. No discrete hepatic mass is visualized. Biliary: The gallbladder is unremarkable. No biliary ductal dilation is seen. Spleen: No mass. No splenomegaly. Pancreas: No mass or duct dilation. Adrenals: The right adrenal gland is unremarkable. The left adrenal gland appears mildly thickened. Kidneys: No mass, calculus or hydronephrosis. GI tract: No dilation or wall thickening. Lymph nodes: There is an aortocaval node measuring 8mm in short axis, previously 6 mm (3:73). An additional aortocaval node seen slightly inferior to this (3:79) measures up to 7 mm in short axis, previously 4 mm. There is a mildly prominent left external iliac node measuring up to 1.3 cm in short axis, stable. No additional abdominal or pelvic adenopathy is seen. Mesentery/Peritoneum: No ascites or mass. Retroperitoneum: No mass. Vasculature: - Abdominal aorta and iliac arteries: No aneurysm. - Celiac and SMA: Patent without stenosis. - Portal venous system (SMV, splenic vein, portal vein and branches): Patent. - Hepatic veins: Patent. Pelvis: No mass, ascites or fluid collection. Bones/Soft Tissues: Degenerative changes noted in the lumbar spine. No destructive osseous lesions are seen. Superficial soft tissues are unremarkable. Lower thorax: A chest CT performed will be reported separately. Engine Oiler (topogram) images: No additional findings. DIVISION OF RADIOLOGY Provider, [facility] - 11/01/2022 * * *Final Report* * * DATE OF EXAM: Oct 31 2022 2:00PM [facility] 0530 - CT ABD/PEL W IVCON / PROCEDURE REASON: Testicular cancer, seminoma, monitor * * * * Physician Interpretation * * * * RESULT: EXAMINATION: CT ABDOMEN AND PELVIS WITH IV CONTRAST CLINICAL HISTORY: History of testicular cancer. TECHNIQUE: CT of the abdomen and pelvis was performed using standard technique, scanning from just above the dome of the diaphragm to the symphysis pubis. MQ: CTAP_3 Contrast: IV: 150 ml of Omnipaque 300 Oral: 500 ml of Omni 240 10-25ml diluted with water CT Radiation dose: Integrated Dose-length product (DLP) for this visit = 1981 mGy*cm. CT Dose Reduction Employed: Automated exposure control (AEC) COMPARISON: CT performed 04/03/2022 RESULT: Liver: The liver is diffusely decreased in attenuation, compatible with hepatic steatosis. No discrete hepatic mass is visualized. Biliary: The gallbladder is unremarkable. No biliary ductal dilation is seen. Spleen: No mass. No splenomegaly. Pancreas: No mass or duct dilation. Adrenals: The right adrenal gland is unremarkable. The left adrenal gland appears mildly thickened. Kidneys: No mass, calculus or hydronephrosis. GI tract: No dilation or wall thickening. Lymph nodes: There is an aortocaval node measuring 8mm in short axis, previously 6 mm (3:73). An additional aortocaval node seen slightly inferior to this (3:79) measures up to 7 mm in short axis, previously 4 mm. There is a mildly prominent left external iliac node measuring up to 1.3 cm in short axis, stable. No additional abdominal or pelvic adenopathy is seen. Mesentery/Peritoneum: No ascites or mass. Retroperitoneum: No mass. Vasculature: - Abdominal aorta and iliac arteries: No aneurysm. - Celiac and SMA: Patent without stenosis. - Portal venous system (SMV, splenic vein, portal vein and branches): Patent. - Hepatic veins: Patent. Pelvis: No mass, ascites or fluid collection. Bones/Soft Tissues: Degenerative changes noted in the lumbar spine. No destructive osseous lesions are seen. Superficial soft tissues are unremarkable. Lower thorax: A chest CT performed will be reported separately. Engine Oiler (topogram) images: No additional findings. IMPRESSION IMPRESSION: 1. Slight interval increase in size of aortocaval nodes, nonspecific. Findings may be reactive in nature. Recommend attention to this area on follow-up exams. 2. Stable left external iliac adenopathy. 3. Otherwise, no findings of abdominal or pelvic metastatic disease. 4. Mild hepatic steatosis. Transcribe Date/Time: Nov 01 2022 11:53A Dictated by: OMAIRA HERRERA MD This examination was interpreted and the report reviewed and electronically signed by: OMAIRA HERRERA MD on Nov 01 2022 12:02PM EST Thank you for allowing us to participate in the care of your patient. Should there be any questions regarding this interpretation, please call [phone]. If you are unable to reach us at the number above, please feel free to contact [facility] at [phone]. [facility] CT Abdomen and Pelvis W cont rast IVOrdered By: [facility] Provider on 11-01-2022 [facility] CT Chest W contrast Tammi IMPRESSION: 1. Interval resolution of groundglass opacities in the right upper lobe, however there has been interval development of new patchy groundglass opacities in both lower lobes. Findings are likely infectious/inflammatory in nature. No evidence of lobar consolidation or pleural effusion. 2. Stable right upper lobe 3 mm nodule. No new or enlarging nodules are visualized. 3. Stable right paratracheal node measuring 1.2 cm in short axis. No new bulky intrathoracic adenopathy is visualized. Transcribe Date/Time: Nov 01 2022 11:17A Dictated by: OMAIRA HERRERA MD This examination was interpreted and the report reviewed and electronically signed by: OMAIRA HERRERA MD on Nov 01 2022 11:53AM EST Thank you for allowing us to participate in the care of your patient. Should there be any questions regarding this interpretation, please call [phone]. If you are unable to reach us at the number above, please feel free to contact [facility] at [phone]. DIVISION OF RADIOLOGY * * *Final Report* * * DATE OF EXAM: Oct 31 2022 2:00PM [facility] 0539 - CT CHEST W IVCON / PROCEDURE REASON: Testicular cancer, seminoma, monitor * * * * Physician Interpretation * * * * RESULT: EXAMINATION: CHEST CT WITH CONTRAST CLINICAL HISTORY: Testicular cancer. Technique: Spiral CT acquisition of the chest from the thoracic inlet to the upper abdomen following IV contrast. MQ: CTCW_6 Contrast: 150 mL Omnipaque [address] Radiation dose: Integrated Dose-length product (DLP) for this visit = 1981 mGy*cm CT Dose Reduction Employed: Automated exposure control (AEC) Comparison: CT chest performed 04/03/2022 RESULT: Limitations: None. Lines, tubes, and devices: None. Lung parenchyma and airways: There is dependent atelectasis. No lobar consolidation is identified. Previously described patchy groundglass opacity in the right upper lobe has largely resolved, however slightly increased patchy groundglass opacity is now seen in both lower lobes. Findings are also likely infectious/inflammatory in nature. There is a stable 3 mm nodule in the right upper lobe (4:61). No new or enlarging nodules are seen. The central airways are widely patent. Pleural space: No pleural effusion. No pleural thickening. Lower neck, lymph nodes, and mediastinum: The thyroid gland is unremarkable. Previously described right inferior paratracheal node is again visualized and measures 1.2 cm in short axis, stable. No new bulky intrathoracic adenopathy is seen. Heart, pericardium, and thoracic vessels: The thoracic aorta and main pulmonary artery are normal in caliber. The cardiac chambers are normal in size. No coronary artery atherosclerotic calcifications are noted, although the study is not optimized for coronary assessment. No pericardial effusion or thickening. Bones and soft tissues: Degenerative changes noted in the thoracic spine. No destructive osseous lesions are seen. Superficial soft tissues are unremarkable. Upper abdomen: A dedicated CT of the abdomen and pelvis was performed concurrently and is reported separately. Engine Oiler (topogram) images: No additional findings. DIVISION OF RADIOLOGY Provider, [facility] - 11/01/2022 * * *Final Report* * * DATE OF EXAM: Oct 31 2022 2:00PM [facility] 0539 - CT CHEST W IVCON / PROCEDURE REASON: Testicular cancer, seminoma, monitor * * * * Physician Interpretation * * * * RESULT: EXAMINATION: CHEST CT WITH CONTRAST CLINICAL HISTORY: Testicular cancer. Technique: Spiral CT acquisition of the chest from the thoracic inlet to the upper abdomen following IV contrast. MQ: CTCW_6 Contrast: 150 mL Omnipaque [address] Radiation dose: Integrated Dose-length product (DLP) for this visit = 1981 mGy*cm CT Dose Reduction Employed: Automated exposure control (AEC) Comparison: CT chest performed 04/03/2022 RESULT: Limitations: None. Lines, tubes, and devices: None. Lung parenchyma and airways: There is dependent atelectasis. No lobar consolidation is identified. Previously described patchy groundglass opacity in the right upper lobe has largely resolved, however slightly increased patchy groundglass opacity is now seen in both lower lobes. Findings are also likely infectious/inflammatory in nature. There is a stable 3 mm nodule in the right upper lobe (4:61). No new or enlarging nodules are seen. The central airways are widely patent. Pleural space: No pleural effusion. No pleural thickening. Lower neck, lymph nodes, and mediastinum: The thyroid gland is unremarkable. Previously described right inferior paratracheal node is again visualized and measures 1.2 cm in short axis, stable. No new bulky intrathoracic adenopathy is seen. Heart, pericardium, and thoracic vessels: The thoracic aorta and main pulmonary artery are normal in caliber. The cardiac chambers are normal in size. No coronary artery atherosclerotic calcifications are noted, although the study is not optimized for coronary assessment. No pericardial effusion or thickening. Bones and soft tissues: Degenerative changes noted in the thoracic spine. No destructive osseous lesions are seen. Superficial soft tissues are unremarkable. Upper abdomen: A dedicated CT of the abdomen and pelvis was performed concurrently and is reported separately. Engine Oiler (topogram) images: No additional findings. IMPRESSION IMPRESSION: 1. Interval resolution of groundglass opacities in the right upper lobe, however there has been interval development of new patchy groundglass opacities in both lower lobes. Findings are likely infectious/inflammatory in nature. No evidence of lobar consolidation or pleural effusion. 2. Stable right upper lobe 3 mm nodule. No new or enlarging nodules are visualized. 3. Stable right paratracheal node measuring 1.2 cm in short axis. No new bulky intrathoracic adenopathy is visualized. Transcribe Date/Time: Nov 01 2022 11:17A Dictated by: OMAIRA HERRERA MD This examination was interpreted and the report reviewed and electronically signed by: OMAIRA HERRERA MD on Nov 01 2022 11:53AM EST Thank you for allowing us to participate in the care of your patient. Should there be any questions regarding this interpretation, please call [phone]. If you are unable to reach us at the number above, please feel free to contact [facility] at [phone]. [facility] Basic metabolic 2000 panelOr dered By: Chace Morataya on 10-31-2022 Anion gap [Moles/Vol] 12 mmol/L 9 - 18 mmol/L [facility] Calcium [Mass/Vol] 9.7 mg/dL 8.5 - 10. 2 mg/dL [facility] Chloride [Moles/Vol] 102 mmol/L 97 - 10 5 mmol/L [facility] CO2 [Moles/Vol] 24 mmol/L 22 - 30 mmol/L [facility] Creatinine [Mass/Vol] 0.89 mg/dL 0.73 - 1.22 mg/dL [facility] GFR/1.73 sq M.predicted among non-blacks MDRD (S/P/Bld) [Vol rate/Area] 106 mL/min/{1.73_m2} - PINF [facility] Comment on above: Estimated Glomerular Filtration Rate (eGFR) is calculated using the 2020 CKD-EPI creatinine equation. This equation utilizes serum creatinine, sex, and age as parameters. The creatinine assay has traceable calibration to isotope dilution-mass spectrometry. Refer to KDIGO guidelines for clinical interpretation. In patients with unstable renal function, e.g. those with acute kidney injury, the eGFR may not accurately reflect actual GFR. Glucose [Mass/Vol] 90 mg/dL 74 - 99 mg/dL [facility] Comment on above: The [place] [employer] (ADA) provides guidance for cutoff values for fasting glucose and random glucose. The ADA defines fasting as no caloric intake for at least 8 hours. Fasting plasma glucose results between 100 to 125 mg/dL indicate increased risk for diabetes (prediabetes). Fasting plasma glucose results greater than or equal to 126 mg/dL meet the criteria for diagnosis of diabetes. In the absence of unequivocal hyperglycemia, results should be confirmed by repeat testing. In a patient with classic symptoms of hyperglycemia or hyperglycemic crisis, random plasma glucose results greater than or equal to 200 mg/dL meet the criteria for diagnosis of diabetes. Reference: Standards of Medical Care in Diabetes 2016, [place] [employer]. Diabetes Care. 2016.39(Suppl 1). Interpretation and review of laboratory results Normal [facility] Potassium [Moles/Vol] 3.9 mmol/L 3.7 - 5.1 mmol/L [facility] Sodium [Moles/Vol] 138 mmol/L 136 - 144 mmol/L [facility] Urea nitrogen [Mass/Vol] 16 mg/dL 9 - 24 mg/dL [facility] CBC W Auto Differential pane l (Bld)on 10-31-2022 Basophils (Bld) [#/Vol] 0.06 10*3/uL NINF [facility] Basophils/100 WBC (Bld) 0.7 % [facility] Differential cell count method Nom (Bld) Auto [facility] Eosinophils (Bld) [#/Vol] 0.14 10*3/uL [facility] Eosinophils/100 WBC (Bld) 1.6 % [facility] Erythrocyte distribution width (RBC) [Ratio] 12.4 % 11.5 - 15.0 % [facility] Hematocrit (Bld) [Volume fraction] 44.1 % 39.0 - 51.0 % [facility] Hemoglobin (Bld) [Mass/Vol] 15.2 g/dL 13.0 - 17.0 g/dL [facility] Immature granulocytes (Bld) [#/Vol] 0.03 10*3/uL [facility] Immature granulocytes/100 WBC (Bld) 0.4 % [facility] Lymphocytes (Bld) [#/Vol] 2.30 10*3/uL [facility] Lymphocytes/100 WBC (Bld) 27.0 % [facility] MCH (RBC) [Entitic mass] 29.3 pg 26.0 - 34.0 pg [facility] MCHC (RBC) [Mass/Vol] 34.5 g/dL 30.5 - 36.0 g/dL [facility] MCV (RBC) [Entitic vol] 85.0 fL 80.0 - 100.0 fL [facility] Monocytes (Bld) [#/Vol] 0.52 10*3/uL [facility] Monocytes/100 WBC (Bld) 6.1 % [facility] Neutrophils (Bld) [#/Vol] 5.48 10*3/uL [facility] Neutrophils/100 WBC (Bld) 64.2 % [facility] Nucleated RBC (Bld) [#/Vol] [facility] Nucleated RBC/100 WBC (Bld) [Ratio] 0.0 % /100 WBC [facility] Platelet mean volume (Bld) [Entitic vol] 10.8 fL 9.0 - 12.7 fL [facility] Platelets (Bld) [#/Vol] 264 10*3/uL [facility] RBC (Bld) [#/Vol] 5.19 10*6/uL 4.20 - 6.0 0 m/uL [facility] WBC (Bld) [#/Vol] 8.53 10*3/uL [facility] LD LACTATE DEHYDROon 023 LDH [Catalytic activity/Vol] 175 U/L 135 - 225 U/L [facility] Comment on above: Hemolysis present. T he origin of the hemolysis, in vitro versus an in vivo hemolytic process, cannot be distinguished via this assay alone. In vitro hemolysis may lead to non-physiological (spurious) elevation in lactate dehydrogenase (LDH) results. The result should be interpreted in context of the clinical setting and other test results. Suggest reorder as clinically indicated. LDH [Catalytic activity/Vol] on 10-31-2022 Interpretation and review of laboratory results Normal [facility] No Panel Informationon 10-31 Radiology Study observation (narrative) [facility] ALPHA FETOPROTEIN BLon 07-10 AFP [Mass/Vol] <11.0 ng/mL [facility] CBC W Auto Differential pane l (Bld)on 07-09-2022 Basophils (Bld) [#/Vol] 0.08 10*3/uL <0.11 k/uL [facility] Basophils/100 WBC (Bld) 0.8 % [facility] Differential cell count method Nom (Bld) Auto [facility] Eosinophils (Bld) [#/Vol] 0.21 10*3/uL <0.46 k/uL [facility] Eosinophils/100 WBC (Bld) 2.0 % [facility] Erythrocyte distribution width (RBC) [Ratio] 12.6 % 11.5 - 15.0 % [facility] Hematocrit (Bld) [Volume fraction] 43.3 % 39.0 - 51.0 % [facility] Hemoglobin (Bld) [Mass/Vol] 15.1 g/dL 13.0 - 17.0 g/dL [facility] Immature granulocytes (Bld) [#/Vol] 0.04 10*3/uL <0.10 k/uL [facility] Immature granulocytes/100 WBC (Bld) 0.4 % [facility] Lymphocytes (Bld) [#/Vol] 2.69 10*3/uL 1.00 - 4.00 k/uL [facility] Lymphocytes/100 WBC (Bld) 25.5 % [facility] MCH (RBC) [Entitic mass] 29.5 pg 26.0 - 34.0 pg [facility] MCHC (RBC) [Mass/Vol] 34.9 g/dL 30.5 - 36.0 g/dL [facility] MCV (RBC) [Entitic vol] 84.7 fL 80.0 - 100.0 fL [facility] Monocytes (Bld) [#/Vol] 0.73 10*3/uL <0.87 k/uL [facility] Monocytes/100 WBC (Bld) 6.9 % [facility] Neutrophils (Bld) [#/Vol] 6.79 10*3/uL 1.45 - 7.50 k/uL [facility] Neutrophils/100 WBC (Bld) 64.4 % [facility] Nucleated RBC (Bld) [#/Vol] <0.01 k/uL [facility] Nucleated RBC/100 WBC (Bld) [Ratio] 0.0 /100 WBC [facility] Platelet mean volume (Bld) [Entitic vol] 9.9 fL 9.0 - 12.7 fL [facility] Platelets (Bld) [#/Vol] 250 10*3/uL 150 - 400 k/uL [facility] RBC (Bld) [#/Vol] 5.11 10*6/uL 4.20 - 6.0 0 m/uL [facility] WBC (Bld) [#/Vol] 10.54 10*3/uL 3.70 - 11.00 k/uL [facility] Comprehensive metabolic 2000 panelon 07-09-2022 Albumin [Mass/Vol] 4.6 g/dL 3.9 - 4.9 g/dL [facility] ALP [Catalytic activity/Vol] 66 U/L 38 - 113 U/L [facility] ALT [Catalytic activity/Vol] 18 U/L 10 - 54 U/L [facility] Anion gap [Moles/Vol] 12 mmol/L 9 - 18 mmol/L [facility] AST [Catalytic activity/Vol] 16 U/L 14 - 40 U/L [facility] Bilirubin [Mass/Vol] 0.2 mg/dL 0.2 - 1 .3 mg/dL [facility] Calcium [Mass/Vol] 9.2 mg/dL 8.5 - 10. 2 mg/dL [facility] Chloride [Moles/Vol] 102 mmol/L 97 - 10 5 mmol/L [facility] CO2 [Moles/Vol] 23 mmol/L 22 - 30 mmol/L [facility] Creatinine [Mass/Vol] 1.06 mg/dL 0.73 - 1.22 mg/dL [facility] Estimated Glomerular Filtration Rate 87 mL/min/1.73m >=60 mL/min/1.73 m [facility] Glucose [Mass/Vol] 124 mg/dL High 74 - 99 mg/dL [facility] Potassium [Moles/Vol] 3.8 mmol/L 3.7 - 5.1 mmol/L [facility] Protein [Mass/Vol] 7.1 g/dL 6.3 - 8.0 g/dL [facility] Sodium [Moles/Vol] 137 mmol/L 136 - 144 mmol/L [facility] Urea nitrogen [Mass/Vol] 23 mg/dL 9 - 24 mg/dL [facility] LD LACTATE DEHYDROon 023 LDH [Catalytic activity/Vol] 185 U/L 135 - 225 U/L [facility] CT Abdomen and Pelvis W cont rast Tammi 04-04-2022 IMPRESSION: 1. No evidence of intra-abdominal/pelvic metastases. No interval change since 09/19/21. 2. Nonspecific borderline left pelvic lymphadenopathy, stable. 3. Diffuse hepatic fatty infiltration. 4. Mild nodular thickening of the left adrenal gland, stable. Transcribe Date/Time: Apr 04 2022 10:56A Dictated by: IZABEL FALK MD This examination was interpreted and the report reviewed and electronically signed by: IZABEL FALK MD on Apr 04 2022 11:59AM EST Thank you for allowing us to participate in the care of your patient. Should there be any questions regarding this interpretation, please call [phone]. If you are unable to reach us at the number above, please feel free to contact [facility] at [phone]. DIVISION OF RADIOLOGY * * *Final Report* * * DATE OF EXAM: Apr 03 2022 2:53PM [facility] 0530 - CT ABD/PEL W IVCON / PROCEDURE REASON: Testicular cancer, seminoma, monitor * * * * Physician Interpretation * * * * RESULT: EXAMINATION: CT ABDOMEN AND PELVIS WITH IV CONTRAST CLINICAL HISTORY: Testicular cancer, seminoma TECHNIQUE: CT of the abdomen and pelvis was performed using standard technique, scanning from just above the dome of the diaphragm to the symphysis pubis. MQ: CTAP_3 Contrast: IV: 125 ml of Omnipaque 300 Oral: 450 ml of 50ML Omnipaque [address] Radiation dose: Integrated Dose-length product (DLP) for this visit = 1987 mGy*cm. CT Dose Reduction Employed: mAs-kVp adjusted based on patient size-age COMPARISON: 04/03/22. RESULT: Liver: No mass. Diffuse hepatic fatty infiltration. Biliary: No bile duct dilation. Gallbladder is unremarkable. Spleen: No mass. No splenomegaly. Pancreas: No mass or duct dilation. Adrenals: Mild nodular thickening of the left adrenal gland, stable. Right adrenal gland is unremarkable. Kidneys: No mass, calculus or hydronephrosis. GI tract: No dilation or wall thickening. No evidence of appendicitis. Lymph nodes: Borderline left external iliac lymphadenopathy (3:136), stable. Mesentery/Peritoneum: No ascites or mass. Retroperitoneum: No mass. Vasculature: - Abdominal aorta and iliac arteries: No aneurysm. - Celiac and SMA: Patent without stenosis. - Portal venous system (SMV, splenic vein, portal vein and branches): Patent. - Hepatic veins: Patent. Pelvis: No mass, ascites or fluid collection. Postoperative changes compatible with a right orchiectomy. The urinary bladder is decompressed. Bones/Soft Tissues: No new osseous abnormalities. Lower thorax: A chest CT performed will be reported separately. Engine Oiler (topogram) images: No additional findings. DIVISION OF RADIOLOGY Provider, [facility] - 04/04/2022 * * *Final Report* * * DATE OF EXAM: Apr 03 2022 2:53PM [facility] 0530 - CT ABD/PEL W IVCON / PROCEDURE REASON: Testicular cancer, seminoma, monitor * * * * Physician Interpretation * * * * RESULT: EXAMINATION: CT ABDOMEN AND PELVIS WITH IV CONTRAST CLINICAL HISTORY: Testicular cancer, seminoma TECHNIQUE: CT of the abdomen and pelvis was performed using standard technique, scanning from just above the dome of the diaphragm to the symphysis pubis. MQ: CTAP_3 Contrast: IV: 125 ml of Omnipaque 300 Oral: 450 ml of 50ML Omnipaque [address] Radiation dose: Integrated Dose-length product (DLP) for this visit = 1987 mGy*cm. CT Dose Reduction Employed: mAs-kVp adjusted based on patient size-age COMPARISON: 04/03/22. RESULT: Liver: No mass. Diffuse hepatic fatty infiltration. Biliary: No bile duct dilation. Gallbladder is unremarkable. Spleen: No mass. No splenomegaly. Pancreas: No mass or duct dilation. Adrenals: Mild nodular thickening of the left adrenal gland, stable. Right adrenal gland is unremarkable. Kidneys: No mass, calculus or hydronephrosis. GI tract: No dilation or wall thickening. No evidence of appendicitis. Lymph nodes: Borderline left external iliac lymphadenopathy (3:136), stable. Mesentery/Peritoneum: No ascites or mass. Retroperitoneum: No mass. Vasculature: - Abdominal aorta and iliac arteries: No aneurysm. - Celiac and SMA: Patent without stenosis. - Portal venous system (SMV, splenic vein, portal vein and branches): Patent. - Hepatic veins: Patent. Pelvis: No mass, ascites or fluid collection. Postoperative changes compatible with a right orchiectomy. The urinary bladder is decompressed. Bones/Soft Tissues: No new osseous abnormalities. Lower thorax: A chest CT performed will be reported separately. Engine Oiler (topogram) images: No additional findings. IMPRESSION IMPRESSION: 1. No evidence of intra-abdominal/pelvic metastases. No interval change since 09/19/21. 2. Nonspecific borderline left pelvic lymphadenopathy, stable. 3. Diffuse hepatic fatty infiltration. 4. Mild nodular thickening of the left adrenal gland, stable. Transcribe Date/Time: Apr 04 2022 10:56A Dictated by: IZABEL FALK MD This examination was interpreted and the report reviewed and electronically signed by: IZABEL FALK MD on Apr 04 2022 11:59AM EST Thank you for allowing us to participate in the care of your patient. Should there be any questions regarding this interpretation, please call [phone]. If you are unable to reach us at the number above, please feel free to contact [facility]Radiology at [phone]. [facility] CT Chest W contrast Tammi IMPRESSION: 1. New mild groundglass opacities in the right upper lobe most likely infectious/inflammatory in etiology. Consider follow-up to complete resolution. 2. Punctate nodular opacity in the right upper lobe, stable and may also be evaluated at follow-up. 3. Nonspecific mild mediastinal lymphadenopathy, stable. Transcribe Date/Time: Apr 04 2022 10:43A Dictated by: IZABEL FALK MD This examination was interpreted and the report reviewed and electronically signed by: IZABEL FALK MD on Apr 04 2022 11:59AM EST Thank you for allowing us to participate in the care of your patient. Should there be any questions regarding this interpretation, please call [phone]. If you are unable to reach us at the number above, please feel free to contact [facility]Radiology at [phone]. DIVISION OF RADIOLOGY * * *Final Report* * * DATE OF EXAM: Apr 03 2022 2:53PM [facility] 0539 - CT CHEST W IVCON / PROCEDURE REASON: Testicular cancer, seminoma, monitor * * * * Physician Interpretation * * * * RESULT: EXAMINATION: CHEST CT WITH CONTRAST CLINICAL HISTORY: Testicular cancer Technique: Spiral CT acquisition of the chest from the thoracic inlet to the upper abdomen following IV contrast. MQ: CTCW_6 Contrast: 125 mL Omnipaque [address] Radiation dose: Integrated Dose-length product (DLP) for this visit = 1988 mGy*cm CT Dose Reduction Employed: mAs-kVp adjusted based on patient size-age Comparison: 09/19/21 RESULT: Limitations: None. Lines, tubes, and devices: None. Lung parenchyma and airways: New mild groundglass opacities in the right upper lobe (4:84) most likely infectious/inflammatory in etiology. 2-3 mm nodular opacity in the right upper lobe (4:60), stable. Streaky scarring in the bilateral lower lung wolf, stable. The central airways are patent. Pleural space: No pleural effusion. No pleural thickening. Lower neck, lymph nodes, and mediastinum: The imaged thyroid gland is normal. 1.2 cm short axis right paratracheal lymphadenopathy (3:69), previously 1.2 cm, stable. Heart, pericardium, and thoracic vessels: The thoracic aorta and main pulmonary artery are normal in caliber. The cardiac chambers are normal in size. No coronary artery atherosclerotic calcifications are noted, although the study is not optimized for coronary assessment. No pericardial effusion or thickening. Bones and soft tissues: No new osseous abnormalities. Upper abdomen: Please refer to the abdomen CT scan report for the abdomen findings. Engine Oiler (topogram) images: No additional findings. DIVISION OF RADIOLOGY Provider, [facility] - 04/04/2022 * * *Final Report* * * DATE OF EXAM: Apr 03 2022 2:53PM [facility] 0539 - CT CHEST W IVCON / PROCEDURE REASON: Testicular cancer, seminoma, monitor * * * * Physician Interpretation * * * * RESULT: EXAMINATION: CHEST CT WITH CONTRAST CLINICAL HISTORY: Testicular cancer Technique: Spiral CT acquisition of the chest from the thoracic inlet to the upper abdomen following IV contrast. MQ: CTCW_6 Contrast: 125 mL Omnipaque [address] Radiation dose: Integrated Dose-length product (DLP) for this visit = 1988 mGy*cm CT Dose Reduction Employed: mAs-kVp adjusted based on patient size-age Comparison: 09/19/21 RESULT: Limitations: None. Lines, tubes, and devices: None. Lung parenchyma and airways: New mild groundglass opacities in the right upper lobe (4:84) most likely infectious/inflammatory in etiology. 2-3 mm nodular opacity in the right upper lobe (4:60), stable. Streaky scarring in the bilateral lower lung wolf, stable. The central airways are patent. Pleural space: No pleural effusion. No pleural thickening. Lower neck, lymph nodes, and mediastinum: The imaged thyroid gland is normal. 1.2 cm short axis right paratracheal lymphadenopathy (3:69), previously 1.2 cm, stable. Heart, pericardium, and thoracic vessels: The thoracic aorta and main pulmonary artery are normal in caliber. The cardiac chambers are normal in size. No coronary artery atherosclerotic calcifications are noted, although the study is not optimized for coronary assessment. No pericardial effusion or thickening. Bones and soft tissues: No new osseous abnormalities. Upper abdomen: Please refer to the abdomen CT scan report for the abdomen findings. Engine Oiler (topogram) images: No additional findings. IMPRESSION IMPRESSION: 1. New mild groundglass opacities in the right upper lobe most likely infectious/inflammatory in etiology. Consider follow-up to complete resolution. 2. Punctate nodular opacity in the right upper lobe, stable and may also be evaluated at follow-up. 3. Nonspecific mild mediastinal lymphadenopathy, stable. Transcribe Date/Time: Apr 04 2022 10:43A Dictated by: IZABEL FALK MD This examination was interpreted and the report reviewed and electronically signed by: IZABEL FALK MD on Apr 04 2022 11:59AM EST Thank you for allowing us to participate in the care of your patient. Should there be any questions regarding this interpretation, please call [phone]. If you are unable to reach us at the number above, please feel free to contact [facility]Radiology at [phone]. [facility] No Panel InformationOrdered By: Ccf Provider on 04-04-2022 [facility] CBC W Auto Differential pane l (Bld)on 04-03-2022 Basophils (Bld) [#/Vol] 0.07 10*3/uL [facility] Basophils/100 WBC (Bld) 0.7 % [facility] Differential cell count method Nom (Bld) Auto [facility] Eosinophils (Bld) [#/Vol] 0.15 10*3/uL [facility] Eosinophils/100 WBC (Bld) 1.5 % [facility] Erythrocyte distribution width (RBC) [Ratio] 12.8 % 11.5 - 15.0 % [facility] Hematocrit (Bld) [Volume fraction] 43.5 % 39.0 - 51.0 % [facility] Hemoglobin (Bld) [Mass/Vol] 15.0 g/dL 13.0 - 17.0 g/dL [facility] Immature granulocytes (Bld) [#/Vol] 0.03 10*3/uL [facility] Immature granulocytes/100 WBC (Bld) 0.3 % [facility] Lymphocytes (Bld) [#/Vol] 2.39 10*3/uL [facility] Lymphocytes/100 WBC (Bld) 23.7 % [facility] MCH (RBC) [Entitic mass] 29.2 pg 26.0 - 34.0 pg [facility] MCHC (RBC) [Mass/Vol] 34.5 g/dL 30.5 - 36.0 g/dL [facility] MCV (RBC) [Entitic vol] 84.6 fL 80.0 - 100.0 fL [facility] Monocytes (Bld) [#/Vol] 0.61 10*3/uL [facility] Monocytes/100 WBC (Bld) 6.0 % [facility] Neutrophils (Bld) [#/Vol] 6.85 10*3/uL [facility] Neutrophils/100 WBC (Bld) 67.8 % [facility] Nucleated RBC (Bld) [#/Vol] [facility] Nucleated RBC/100 WBC (Bld) [Ratio] 0.0 % /100 WBC [facility] Platelet mean volume (Bld) [Entitic vol] 10.3 fL 9.0 - 12.7 fL [facility] Platelets (Bld) [#/Vol] 271 10*3/uL [facility] RBC (Bld) [#/Vol] 5.14 10*6/uL 4.20 - 6.0 0 m/uL [facility] WBC (Bld) [#/Vol] 10.10 10*3/uL [facility] This is an appended report. These results have been appended to a previously verified report. [facility] Comprehensive metabolic 2000 panelOrdered By: Stephanie Abbott on 04-03-2022 Albumin [Mass/Vol] 4.3 g/dL 3.9 - 4.9 g/dL [facility] ALP [Catalytic activity/Vol] 64 U/L 38 - 113 U/L [facility] ALT [Catalytic activity/Vol] 18 U/L 10 - 54 U/L [facility] Anion gap [Moles/Vol] 11 mmol/L 9 - 18 mmol/L [facility] AST [Catalytic activity/Vol] 16 U/L 14 - 40 U/L [facility] Bilirubin [Mass/Vol] 0.4 mg/dL 0.2 - 1 .3 mg/dL [facility] Calcium [Mass/Vol] 9.3 mg/dL 8.5 - 10. 2 mg/dL [facility] Chloride [Moles/Vol] 102 mmol/L 97 - 10 5 mmol/L [facility] CO2 [Moles/Vol] 24 mmol/L 22 - 30 mmol/L [facility] Creatinine [Mass/Vol] 0.88 mg/dL 0.73 - 1.22 mg/dL [facility] GFR/1.73 sq M.predicted among non-blacks MDRD (S/P/Bld) [Vol rate/Area] 107 mL/min/{1.73_m2} - PINF [facility] Comment on above: Estimated Glomerular Filtration Rate (eGFR) is calculated using the 2020 CKD-EPI creatinine equation. This equation utilizes serum creatinine, sex, and age as parameters. The creatinine assay has traceable calibration to isotope dilution-mass spectrometry. Refer to KDIGO guidelines for clinical interpretation. In patients with unstable renal function, e.g. those with acute kidney injury, the eGFR may not accurately reflect actual GFR. Glucose [Mass/Vol] 92 mg/dL 74 - 99 mg/dL [facility] Comment on above: The [place] Di[employer] Association (ADA) provides guidance for cutoff values for fasting glucose and random glucose. The ADA defines fasting as no caloric intake for at least 8 hours. Fasting plasma glucose results between 100 to 125 mg/dL indicate increased risk for diabetes (prediabetes). Fasting plasma glucose results greater than or equal to 126 mg/dL meet the criteria for diagnosis of diabetes. In the absence of unequivocal hyperglycemia, results should be confirmed by repeat testing. In a patient with classic symptoms of hyperglycemia or hyperglycemic crisis, random plasma glucose results greater than or equal to 200 mg/dL meet the criteria for diagnosis of diabetes. Reference: Standards of Medical Care in Diabetes 2016, [place] [employer]. Diabetes Care. 2016.39(Suppl 1). Interpretation and review of laboratory results Normal [facility] Potassium [Moles/Vol] 3.8 mmol/L 3.7 - 5.1 mmol/L [facility] Protein [Mass/Vol] 6.9 g/dL 6.3 - 8.0 g/dL [facility] Sodium [Moles/Vol] 137 mmol/L 136 - 144 mmol/L [facility] Urea nitrogen [Mass/Vol] 16 mg/dL 9 - 24 mg/dL [facility] LD LACTATE DEHYDROon 022 LDH [Catalytic activity/Vol] 186 U/L 135 - 225 U/L [facility] Comment on above: Hemolysis present. T he origin of the hemolysis, in vitro versus an in vivo hemolytic process, cannot be distinguished via this assay alone. In vitro hemolysis may lead to non-physiological (spurious) elevation in lactate dehydrogenase (LDH) results. The result should be interpreted in context of the clinical setting and other test results. Suggest reorder as clinically indicated. LDH [Catalytic activity/Vol] on 04-03-2022 Interpretation and review of laboratory results Normal [facility] No Panel Informationon 04-03 Radiology Study observation (narrative) [facility] BETA HCG QUANT TUMOR MARKERo n 09-21-2021 HCG.beta subunit Qn m[IU]/mL [facility] Comment on above: INTERPRETIVE INFORMA TION: Beta hCG, Serum Quantitation Tumor Marker Human chorionic gonadotropin (hCG) is a valuable aid in the management of patients with trophoblastic tumors, nonseminomatous testicular tumors and seminomas when used in conjunction with information available from the clinical evaluation and other diagnostic procedures. Increased serum HCG concentrations have also been observed in melanoma, carcinomas of the breast, gastrointestinal tract, lung, and ovaries, and in benign conditions, including cirrhosis, duodenal ulcer, and inflammatory bowel disease. This result cannot be interpreted as absolute evidence of the presence or absence of malignant disease. This result is not interpretable as a tumor marker in females. The combination of the specific monoclonal antibodies used in the [facility] Beta HCG electrochemiluminescent immunoassay recognize the holo-hormone, nicked forms of hCG, the beta-core fragment, and the free beta-subunit. Results obtained with different test methods or kits cannot be used interchangeably. Although this assay is FDA cleared for use in the detection of , it is not labeled for use as a tumor marker. Access complete set of age- and/or gender-specific reference intervals for this test in the [facility] Directory ([facility]). This test was developed and its performance characteristics determined by [facility]. It has not been cleared or approved by the [place] Food and Drug Administration. This test was performed in a CLIA certified laboratory and is intended for clinical purposes. Performed By: [facility] [address] [place] [id number] Digital Tech: Skylar Sloan MD HCG.beta subunit Qnon 2021 [facility] AFP [Mass/Vol]Ordered By: Tj Ziegler on 09-20-2021 Interpretation and review of laboratory results Normal [facility] ALPHA FETOPROTEIN BLOrdered By: Kinsey Ziegler on 09-20-2021 AFP [Mass/Vol] ng/mL NINF - 11.0 ng/mL [facility] Comment on above: Result rechecked. The test is typically used as an aid in managing hepatocellular carcinoma and non-seminomatous testicular cancer when used in conjunction with physical examination, histology, and other clinical evaluation procedures. Normal levels of AFP do not entirely exclude the possibility of the above-mentioned conditions, other malignancies, and chronic liver diseases. The normal range has not been established for newborns. The [employer] XP is used. Results obtained with different assay methods or kits cannot be used interchangeably. CBC W Auto Differential pane l (Bld)on 09-19-2021 Basophils (Bld) [#/Vol] 0.05 10*3/uL [facility] Basophils/100 WBC (Bld) 0.5 % [facility] Differential cell count method Nom (Bld) Auto [facility] Eosinophils (Bld) [#/Vol] 0.18 10*3/uL [facility] Eosinophils/100 WBC (Bld) 1.7 % [facility] Erythrocyte distribution width (RBC) [Ratio] 12.9 % 11.5 - 15.0 % [facility] Hematocrit (Bld) [Volume fraction] 43.5 % 39.0 - 51.0 % [facility] Hemoglobin (Bld) [Mass/Vol] 14.8 g/dL 13.0 - 17.0 g/dL [facility] Immature granulocytes (Bld) [#/Vol] 0.06 10*3/uL [facility] Immature granulocytes/100 WBC (Bld) 0.6 % [facility] Lymphocytes (Bld) [#/Vol] 2.81 10*3/uL [facility] Lymphocytes/100 WBC (Bld) 26.5 % [facility] MCH (RBC) [Entitic mass] 28.6 pg 26.0 - 34.0 pg [facility] MCHC (RBC) [Mass/Vol] 34.0 g/dL 30.5 - 36.0 g/dL [facility] MCV (RBC) [Entitic vol] 84.1 fL 80.0 - 100.0 fL [facility] Monocytes (Bld) [#/Vol] 0.61 10*3/uL [facility] Monocytes/100 WBC (Bld) 5.7 % [facility] Neutrophils (Bld) [#/Vol] 6.90 10*3/uL [facility] Neutrophils/100 WBC (Bld) 65.0 % [facility] Nucleated RBC (Bld) [#/Vol] [facility] Nucleated RBC/100 WBC (Bld) [Ratio] 0.0 % /100 WBC [facility] Platelet mean volume (Bld) [Entitic vol] 9.9 fL 9.0 - 12.7 fL [facility] Platelets (Bld) [#/Vol] 278 10*3/uL [facility] RBC (Bld) [#/Vol] 5.17 10*6/uL 4.20 - 6.0 0 m/uL [facility] WBC (Bld) [#/Vol] 10.61 10*3/uL [facility] This is an appended report. These results have been appended to a previously verified report. [facility] CT Abdomen and Pelvis W cont rast Tammi 09-19-2021 IMPRESSION: 1. No evidence of abdominal or pelvic metastatic disease. 2. Findings suggestive of mild hepatic steatosis. 3. Stable nodularity in the left adrenal gland, likely representing a small adenoma. Transcribe Date/Time: Sep 19 2021 5:27P Dictated by: OMAIRA HERRERA MD This examination was interpreted and the report reviewed and electronically signed by: OMAIRA HERRERA MD on Sep 19 2021 5:31PM EST Thank you for allowing us to participate in the care of your patient. Should there be any questions regarding this interpretation, please call [phone]. If you are unable to reach us at the number above, please feel free to contact [facility]Radiology at [phone]. 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 TECHNIQUE: CT of the abdomen and pelvis was performed using standard technique, scanning from just above the dome of the diaphragm to the symphysis pubis. MQ: CTAP_3 Contrast: IV: 150 ml of Omnipaque 300 Oral: 900 ml of 50ML Omnipaque [address] Radiation dose: Integrated Dose-length product (DLP) for this visit = 2099 mGy*cm. CT Dose Reduction Employed: mAs-kVp adjusted based on patient size-age COMPARISON: CT performed 06/14/2021 RESULT: Liver: The liver is mildly decreased in attenuation, suggestive of hepatic steatosis. No suspicious hepatic mass lesions are noted. Biliary: The gallbladder is unremarkable. No intrahepatic or extra hepatic biliary ductal dilation is seen. Spleen: No mass. No splenomegaly. Pancreas: No mass or duct dilation. Adrenals: The right adrenal gland is unremarkable. There is stable nodular thickening of the left adrenal gland which may be on the basis of a small adenoma. Kidneys: The kidneys symmetrically enhance. No renal calculus or hydronephrosis is visualized. GI tract: The stomach and small bowel are unremarkable. There is no evidence of small bowel obstruction or wall thickening. The colon is unremarkable. Lymph nodes: No abdominal or pelvic lymphadenopathy. Mesentery/Peritoneum: No ascites or mass. Retroperitoneum: No mass. Vasculature: - Abdominal aorta and iliac arteries: No aneurysm. - Celiac and SMA: Patent without stenosis. - Portal venous system (SMV, splenic vein, portal vein and branches): Patent. - Hepatic veins: Patent. Pelvis: No mass, ascites or fluid collection. Bones/Soft Tissues: Postsurgical changes are noted in the right inguinal region. Superficial soft tissues are otherwise unremarkable. Degenerative change is noted in the lumbar spine. Lower thorax: A chest CT performed will be reported separately. Engine Oiler (topogram) images: No additional findings. 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 TECHNIQUE: CT of the abdomen and pelvis was performed using standard technique, scanning from just above the dome of the diaphragm to the symphysis pubis. MQ: CTAP_3 Contrast: IV: 150 ml of Omnipaque 300 Oral: 900 ml of 50ML Omnipaque [address] Radiation dose: Integrated Dose-length product (DLP) for this visit = 2099 mGy*cm. CT Dose Reduction Employed: mAs-kVp adjusted based on patient size-age COMPARISON: CT performed 06/14/2021 RESULT: Liver: The liver is mildly decreased in attenuation, suggestive of hepatic steatosis. No suspicious hepatic mass lesions are noted. Biliary: The gallbladder is unremarkable. No intrahepatic or extra hepatic biliary ductal dilation is seen. Spleen: No mass. No splenomegaly. Pancreas: No mass or duct dilation. Adrenals: The right adrenal gland is unremarkable. There is stable nodular thickening of the left adrenal gland which may be on the basis of a small adenoma. Kidneys: The kidneys symmetrically enhance. No renal calculus or hydronephrosis is visualized. GI tract: The stomach and small bowel are unremarkable. There is no evidence of small bowel obstruction or wall thickening. The colon is unremarkable. Lymph nodes: No abdominal or pelvic lymphadenopathy. Mesentery/Peritoneum: No ascites or mass. Retroperitoneum: No mass. Vasculature: - Abdominal aorta and iliac arteries: No aneurysm. - Celiac and SMA: Patent without stenosis. - Portal venous system (SMV, splenic vein, portal vein and branches): Patent. - Hepatic veins: Patent. Pelvis: No mass, ascites or fluid collection. Bones/Soft Tissues: Postsurgical changes are noted in the right inguinal region. Superficial soft tissues are otherwise unremarkable. Degenerative change is noted in the lumbar spine. Lower thorax: A chest CT performed will be reported separately. Engine Oiler (topogram) images: No additional findings. IMPRESSION IMPRESSION: 1. No evidence of abdominal or pelvic metastatic disease. 2. Findings suggestive of mild hepatic steatosis. 3. Stable nodularity in the left adrenal gland, likely representing a small adenoma. Transcribe Date/Time: Sep 19 2021 5:27P Dictated by: OMAIRA HERRERA MD This examination was interpreted and the report reviewed and electronically signed by: OMAIRA HERRERA MD on Sep 19 2021 5:31PM EST Thank you for allowing us to participate in the care of your patient. Should there be any questions regarding this interpretation, please call [phone]. If you are unable to reach us at the number above, please feel free to contact [facility]Radiology at [phone]. [facility] CT Abdomen and Pelvis W cont rast IVOrdered By: [facility]cf Provider on 09-19-2021 [facility] CT Chest W contrast Tammi IMPRESSION: No evidence of intrathoracic metastatic disease. Transcribe Date/Time: Sep 19 2021 5:15P Dictated by: OMAIRA HERRERA MD This examination was interpreted and the report reviewed and electronically signed by: OMAIRA HERRERA MD on Sep 19 2021 5:26PM EST Thank you for allowing us to participate in the care of your patient. Should there be any questions regarding this interpretation, please call [phone]. If you are unable to reach us at the number above, please feel free to contact [facility] at [phone]. 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 MQ: CTCW_6 Contrast: 150 mL Omnipaque [address] Radiation dose: Integrated Dose-length product (DLP) for this visit = 2099 mGy*cm CT Dose Reduction Employed: mAs-kVp adjusted based on patient size-age Comparison: None available. RESULT: Limitations: None. Lines, tubes, and devices: None. Lung parenchyma and airways: No lobar consolidation is noted. Linear bandlike opacities are seen in the lingula and right lower lobe likely representing subsegmental atelectasis or scarring. No suspicious pulmonary nodules are identified. The central airways are widely patent. Pleural space: No pleural effusion. No pleural thickening. Lower neck, lymph nodes, and mediastinum: There is a right paratracheal node measuring up to 1.2 cm in short axis. Additional subcentimeter mediastinal nodes are visualized which are not enlarged by size criteria. No bulky hilar adenopathy is visualized. Heart, pericardium, and thoracic vessels: The thoracic aorta and main pulmonary artery are normal in caliber. The cardiac chambers are normal in size. No coronary artery atherosclerotic calcifications are noted, although the study is not optimized for coronary assessment. No pericardial effusion or thickening. Bones and soft tissues: Mild degenerative change is seen in the thoracic spine. No destructive osseous lesions are seen. Superficial soft tissues are unremarkable. Upper abdomen: A dedicated CT of the abdomen and pelvis was performed concurrently and is reported separately. Engine Oiler (topogram) images: No additional findings. 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 MQ: CTCW_6 Contrast: 150 mL Omnipaque [address] Radiation dose: Integrated Dose-length product (DLP) for this visit = 2099 mGy*cm CT Dose Reduction Employed: mAs-kVp adjusted based on patient size-age Comparison: None available. RESULT: Limitations: None. Lines, tubes, and devices: None. Lung parenchyma and airways: No lobar consolidation is noted. Linear bandlike opacities are seen in the lingula and right lower lobe likely representing subsegmental atelectasis or scarring. No suspicious pulmonary nodules are identified. The central airways are widely patent. Pleural space: No pleural effusion. No pleural thickening. Lower neck, lymph nodes, and mediastinum: There is a right paratracheal node measuring up to 1.2 cm in short axis. Additional subcentimeter mediastinal nodes are visualized which are not enlarged by size criteria. No bulky hilar adenopathy is visualized. Heart, pericardium, and thoracic vessels: The thoracic aorta and main pulmonary artery are normal in caliber. The cardiac chambers are normal in size. No coronary artery atherosclerotic calcifications are noted, although the study is not optimized for coronary assessment. No pericardial effusion or thickening. Bones and soft tissues: Mild degenerative change is seen in the thoracic spine. No destructive osseous lesions are seen. Superficial soft tissues are unremarkable. Upper abdomen: A dedicated CT of the abdomen and pelvis was performed concurrently and is reported separately. Engine Oiler (topogram) images: No additional findings. IMPRESSION IMPRESSION: No evidence of intrathoracic metastatic disease. Transcribe Date/Time: Sep 19 2021 5:15P Dictated by: OMAIRA HERRERA MD This examination was interpreted and the report reviewed and electronically signed by: OMAIRA HERRERA MD on Sep 19 2021 5:26PM EST Thank you for allowing us to participate in the care of your patient. Should there be any questions regarding this interpretation, please call [phone]. If you are unable to reach us at the number above, please feel free to contact [facility] eRadiology at [phone]. [facility] Comprehensive metabolic 2000 panelOrdered By: Chace Morataya on 09-19-2021 Albumin [Mass/Vol] 4.5 g/dL 3.9 - 4.9 g/dL [facility] ALP [Catalytic activity/Vol] 62 U/L 38 - 113 U/L [facility] ALT [Catalytic activity/Vol] 23 U/L 10 - 54 U/L [facility] Anion gap [Moles/Vol] 10 mmol/L 9 - 18 mmol/L [facility] AST [Catalytic activity/Vol] 15 U/L 14 - 40 U/L [facility] Bilirubin [Mass/Vol] 0.2 mg/dL 0.2 - 1 .3 mg/dL [facility] Calcium [Mass/Vol] 9.5 mg/dL 8.5 - 10. 2 mg/dL [facility] Chloride [Moles/Vol] 102 mmol/L 97 - 10 5 mmol/L [facility] CO2 [Moles/Vol] 25 mmol/L 22 - 30 mmol/L [facility] Creatinine [Mass/Vol] 0.84 mg/dL 0.73 - 1.22 mg/dL [facility] GFR/1.73 sq M.predicted among non-blacks MDRD (S/P/Bld) [Vol rate/Area] 108 mL/min/{1.73_m2} - PINF [facility] Comment on above: Estimated Glomerular Filtration Rate (eGFR) is calculated using the 2020 CKD-EPI creatinine equation. This equation utilizes serum creatinine, sex, and age as parameters. The creatinine assay has traceable calibration to isotope dilution-mass spectrometry. Refer to KDIGO guidelines for clinical interpretation. In patients with unstable renal function, e.g. those with acute kidney injury, the eGFR may not accurately reflect actual GFR. Glucose [Mass/Vol] 93 mg/dL 74 - 99 mg/dL [facility] Comment on above: The [place] Di[employer] s Association (ADA) provides guidance for cutoff values for fasting glucose and random glucose. The ADA defines fasting as no caloric intake for at least 8 hours. Fasting plasma glucose results between 100 to 125 mg/dL indicate increased risk for diabetes (prediabetes). Fasting plasma glucose results greater than or equal to 126 mg/dL meet the criteria for diagnosis of diabetes. In the absence of unequivocal hyperglycemia, results should be confirmed by repeat testing. In a patient with classic symptoms of hyperglycemia or hyperglycemic crisis, random plasma glucose results greater than or equal to 200 mg/dL meet the criteria for diagnosis of diabetes. Reference: Standards of Medical Care in Diabetes 2016, [place] [employer]. Diabetes Care. 2016.39(Suppl 1). Interpretation and review of laboratory results Normal [facility] Potassium [Moles/Vol] 3.9 mmol/L 3.7 - 5.1 mmol/L [facility] Protein [Mass/Vol] 7.1 g/dL 6.3 - 8.0 g/dL [facility] Sodium [Moles/Vol] 137 mmol/L 136 - 144 mmol/L [facility] Urea nitrogen [Mass/Vol] 20 mg/dL 9 - 24 mg/dL [facility] LD LACTATE DEHYDROon 022 LDH [Catalytic activity/Vol] 178 U/L 135 - 225 U/L [facility] LDH [Catalytic activity/Vol] on 09-19-2021 Interpretation and review of laboratory results Normal [facility] No Panel Informationon 09-19 Radiology Study observation (narrative) [facility] CBC AUTO DIFFon 08-17-2021 BASO # 0.0 103/ul Normal 0.0-0.1 [facility] Comment on above: Performed By: #### C BC #### [facility] [address] [address] [address] Nehemias Leal Basophils/100 WBC (Bld) 0.5 % Normal 0.2-2.0 [facility] Comment on above: Performed By: #### C BC #### [facility] [address] [address] [address] Nehemias Leal EO # 0.2 103/ul Normal 0.0-0.7 [facility] Comment on above: Performed By: #### C BC #### [facility] [address] [address] [address] Nehemias Leal Eosinophils/100 WBC (Bld) 2.8 % Normal 0.9-7.0 [facility] Comment on above: Performed By: #### C BC #### [facility] [address] [place] [address] Dr. Nehemias Leal Erythrocyte distribution width (RBC) [Ratio] 12.7 % Normal 11.0-15.0 [facility] Comment on above: Performed By: #### C BC #### [facility] [address] [place] [address] Dr. Nehemias Leal Hematocrit (Bld) [Volume fraction] 44.8 % Normal 42.0-54.0 [facility] Comment on above: Performed By: #### C BC #### [facility] [address] [place] [address] Dr. Nehemias Leal Hemoglobin (Bld) [Mass/Vol] 15.3 g/dL Normal 14.0-18.0 [facility] Comment on above: Performed By: #### C BC #### [facility] [address] [place] [address] Dr. Nehemias Leal IG # 0.03 10e3/ul Normal 0.00-0.03 [facility] Comment on above: Performed By: #### C BC #### [facility] [address] [place] [address] Dr. Nehemias Leal IG % 0.4 % Normal 0.0-0.5 [facility] Comment on above: Performed By: #### C BC #### [facility] [address] [place] [address] Dr. Nehemias Leal LYMPH # 2.7 103/ul Normal 1.2-3.8 [facility] Comment on above: Performed By: #### C BC #### [facility] [address] [place] [address] Dr. Nehemias Leal Lymphocytes/100 WBC (Bld) 33.6 % Normal 20.5-60.0 [facility] Comment on above: Performed By: #### C BC #### [facility] [address] [place] [address] Dr. Nehemias Leal MANUAL DIFF REQ NO Normal [facility] Comment on above: Performed By: #### C BC #### [facility] [address] [place] [address] Dr. Nehemias Leal MCH (RBC) [Entitic mass] 29.2 pg Normal 25.9-34.0 [facility] Comment on above: Performed By: #### C BC #### [facility] [address] [place] [address] Dr. Nehemias Leal MCHC (RBC) [Mass/Vol] 34.2 g/dL Normal 29.9-35.2 [facility] Comment on above: Performed By: #### C BC #### [facility] [address] [place] [address] Dr. Nehemias Leal MCV (RBC) [Entitic vol] 85.5 fL Normal 80.0-94.0 [facility] Comment on above: Performed By: #### C BC #### [facility] [address] [place] [address] Dr. Nehemias Leal MONO # 0.6 103/ul Normal 0.3-0.8 [facility] Comment on above: Performed By: #### C BC #### [facility] [address] [place] [address] Dr. Nehemias Leal Monocytes/100 WBC (Bld) 7.9 % Normal 1.7-12.0 [facility] Comment on above: Performed By: #### C BC #### [facility] [address] [place] [address] Dr. Nehemias Leal NEUT # 4.4 103/ul Normal 1.4-6.5 [facility] Comment on above: Performed By: #### C BC #### [facility] [address] [place] [address] Dr. Nehemias Leal Neutrophils/100 WBC (Bld) 54.8 % Normal 43.0-75.0 [facility] Comment on above: Performed By: #### C BC #### [facility] [address] [place] [address] Dr. Nehemias Leal Platelet mean volume (Bld) [Entitic vol] 9.8 fL Normal 9.5-13.5 [facility] Comment on above: Performed By: #### C BC #### [facility] [address] [place] [address] Dr. Nehemias Leal PLT 264 103/ul Normal 150-450 [facility] Comment on above: Performed By: #### C BC #### [facility] [address] [place] [address] Dr. Nehemias Leal RBC 5.24 106/ul Normal 4.70-6.10 [facility] Comment on above: Performed By: #### C BC #### [facility] [address] [place] [address] Dr. Nehemias Leal WBC 7.9 103/ul Normal 4.0-11.0 [facility] Comment on above: Performed By: #### C BC #### [facility] [address] [place] [address] Dr. Nehemias Leal PROF 14(COMP METB)on 022 Albumin [Mass/Vol] 3.8 g/dL Normal 3.5-5.0 [facility] Comment on above: Performed By: #### C CHANNING, HSTROPN #### [facility] [address] [place] [address] Dr. Nehemias Leal Albumin/Globulin [Mass ratio] 1.0 {ratio} [facility] Comment on above: Performed By: #### C CHANNING, HSTROPN #### [facility] [address] [place] [address] Dr. Nehemias Leal ALP [Catalytic activity/Vol] 73 U/L Normal 38-126 [facility] Comment on above: Performed By: #### C MP, HSTROPN #### [facility] [address] [place] [address] Dr. Nehemias Leal ALT [Catalytic activity/Vol] 27 U/L Normal 21-72 [facility] Comment on above: Performed By: #### C MP, HSTROPN #### [facility] [address] [place] [address] Dr. Nehemias Leal Anion gap [Moles/Vol] 11.0 mmol/L Normal [facility] Comment on above: Performed By: #### C MP, HSTROPN #### [facility] [address] [address] [address] Nehemias Leal AST [Catalytic activity/Vol] 17 U/L Normal 17-59 [facility] Comment on above: Performed By: #### C MP, HSTROPN #### [facility] [address] [address] [address] Nehemias Leal Bilirubin [Mass/Vol] 0.2 mg/dL Normal 0.2-1.3 [facility] Comment on above: Performed By: #### C MP, HSTROPN #### [facility] [address] [address] [address] Nehemias Leal Calcium [Mass/Vol] 9.0 mg/dL Normal 8.4-10.2 [facility] Comment on above: Performed By: #### C MP, HSTROPN #### [facility] [address] [place] [address] Dr. Nehemias Leal Chloride [Moles/Vol] 104 mmol/L Normal 98-107 [facility] Comment on above: Performed By: #### C MP, HSTROPN #### [facility] [address] [address] [address] Nehemias Leal CO2 [Moles/Vol] 25.6 mmol/L Normal 22.0-30.0 [facility] Comment on above: Performed By: #### C MP, HSTROPN #### [facility] [address] [address] [address] Nehemias Leal Creatinine [Mass/Vol] 1.09 mg/dL Normal 0.66-1.25 [facility] Comment on above: Performed By: #### C MP, HSTROPN #### [facility] [address] [place] [address] Dr. Nehemias Leal EGFR-AF CONGOLESE >60 Normal >=60 [facility] Comment on above: Performed By: #### C MP, HSTROPN #### [facility] [address] [address] [address] Nehemias Leal EGFR-NON AF CONGOLESE >60 Normal >=60 [facility] Comment on above: Performed By: #### C MP, HSTROPN #### [facility] [address] [address] [address] Nehemias Lael Globulin (S) [Mass/Vol] 3.7 g/dL Normal [facility] Comment on above: Performed By: #### C MP, HSTROPN #### [facility] [address] [address] [address] Nehemias Leal Glucose [Mass/Vol] 95 mg/dL Normal 74-106 [facility] Comment on above: Performed By: #### C MP, HSTROPN #### [facility] [address] [address] [address] Nehemias Leal Potassium [Moles/Vol] 3.6 mmol/L Normal 3.4-5.0 [facility] Comment on above: Performed By: #### C CHANNING, HSTROPN #### [facility] [address] [address] [address] Nehemias Leal Protein [Mass/Vol] 7.5 g/dL Normal 6.1-8.2 [facility] Comment on above: Performed By: #### C CHANNING, HSTROPN #### [facility] [address] [address] [address] Nehemias Leal Sodium [Moles/Vol] 137 mmol/L Normal 137-145 [facility] Comment on above: Performed By: #### C MP, HSTROPN #### [facility] [address] [address] [address] Nehemias Leal Urea nitrogen [Mass/Vol] 22.0 mg/dL Critically high 9.0-20.0 [facility] Comment on above: Performed By: #### C MP, HSTROPN #### [facility] [address] [address] [address] Nehemias Leal Urea nitrogen/Creatinine [Mass ratio] 20.2 mg/mg Normal [facility] Comment on above: Performed By: #### C MP, HSTROPN #### [facility] [address] [address] [address] Nehemias Leal PROTIMEon 08-17-2021 INR Coag (PPP) [Relative time] 0.94 {INR} Normal [facility] Comment on above: Performed By: #### A FP. #### [facility] [address] [place] [address] Dr. Nehemias Leal INR GUIDELINES SEE BELOW Normal [facility] [place] Comment on above: Result Comment: LUIS RED INR: 2.0 - 3.0 CONDITIONS NOT LISTED BELOW 2.5 - 3.5 FOR PROSTHETIC HEART VALVE REPLACEMENT 2.5 - 3.5 RECURRENT THROMBOSIS Performed By: #### A FP. #### [facility] [address] [address] [address] Nehemias Leal PT Coag (PPP) [Time] 10.2 s Normal 9.0-11.6 [facility] Comment on above: Performed By: #### A FP. #### [facility] [address] [place] [address] Dr. Nehemias Leal PTTon 08-17-2021 aPTT Coag (Bld) [Time] 28.2 s Normal 22.3-36.2 [facility] Comment on above: Performed By: #### A FP. #### [facility] [address] [place] [address] Dr. Nehemias Leal TROPONIN, HIGH SENSITIVITYon 08-17-2021 HSTROP 6.0 pg/mL Normal 4.0-42.2 [facility] Comment on above: Result Comment: CUT- OFF POINTS HAVE BEEN ESTABLISHED BASED ON THE FOURTH UNIVERSAL DEFINITIONS OF MYOCARDIAL INFARCTION. THE UPPER REFERENCE LIMIT (URL) OF TROPONIN, DEFINED THE 99TH PERCENTILE OF cTnI DISTRIBUTION IN A REFERENCE POPULATION, HAS BEEN CONFIRMED THE DECISION THRESHOLD FOR [place] DIAGNOSIS. Performed By: #### C MP, HSTROPN #### [facility] [address] [place] [address] Dr. Nehemias Leal AFP (TUMOR MARKER)on 022 AFP, Serum, Tumor Marker 1.3 ng/mL Normal 0.0-8.3 [facility] Comment on above: Result Comment: [employer] Electrochemiluminescence Immunoassay (ECLIA) . Values obtained with different assay methods or kits cannot be used interchangeably. Results cannot be interpreted as absolute evidence of the presence or absence of malignant disease. . This test is not interpretable in females. . Effective August 21, 2021 AFP, Serum, Tumor Marker reference interval will be changing to: Age Male Female 0 - 7 days 0.0 - 12551.8 0.0 - 51145.8 8 - 30 days 0.0 - 26545.4 0.0 - 69045.4 1 month 0.0 - 1747.8 0.0 - 1600.3 2 months 0.0 - 391.1 0.0 - 550.0 3 months 0.0 - 225.8 0.0 - 339.9 4 months 0.0 - 230.6 0.0 - 230.6 5 months 0.0 - 118.0 0.0 - 234.0 6 months 0.0 - 97.2 0.0 - 97.2 7 - 11 months 0.0 - 60.3 0.0 - 60.3 1 year 0.0 - 21.4 0.0 - 21.4 2 years 0.0 - 9.4 0.0 - 10.1 3 - 4 years 0.0 - 5.5 0.0 - 5.5 5 years 0.0 - 3.6 0.0 - 4.2 6 - 12 years 0.0 - 3.9 0.0 - 3.9 13 - 17 years 0.0 - 4.3 0.0 - 4.3 18 - 30 years 0.0 - 5.7 0.0 - 4.7 31 - 50 years 0.0 - 6.9 0.0 - 6.4 51 - 80 years 0.0 - 8.4 0.0 - 9.2 >80 years 0.0 - 6.4 0.0 - 8.7 Performed By: #### A . #### [facility] [address] [place] [address] Dr. Nehemias Leal HCG QUANT TUMOR MARKERon HCG QNT TUMOR MARKER <1 Normal 0-3 [facility] Comment on above: Result Comment: [employer] Electrochemiluminescence Immunoassay (ECLIA) . The [employer] HCG + beta assay recognizes the holo-hormone, human chorionic gonadotropin (hCG), nicked forms of hCG, the beta-core fragment and the free beta-subunit in human serum and plasma. . Results obtained with different test methods or kits cannot be used interchangeably. This assay is intended for the early detection of . The result should not be used for treatment or for diagnostic purposes without confirmation of the diagnosis by another medically established diagnostic product or procedure. . This test was developed and its performance characteristics determined by [employer]. It has not been cleared or approved by the Food and Drug Administration for use as a tumor marker. . This test is not interpretable as a tumor marker in females. Performed By: #### H CGTMOR #### [facility] [address] [place] [address] Dr. Nehemias Leal POINT OF CARE GLUCOSEon 07-18 Glucose [Mass/Vol] 111 mg/dL Critically high 74-106 T [facility] Comment on above: Performed By: #### P OCGLUC #### [facility] [address] [place] [address] Dr. Nehemias Leal CBC AUTO DIFFon 08-02-2021 BASO # 0.1 103/ul Normal 0.0-0.1 [facility] Comment on above: Performed By: #### A FP. #### [facility] [address] [place] [address] Dr. Nehemias Leal Basophils/100 WBC (Bld) 0.5 % Normal 0.2-2.0 [facility] Comment on above: Performed By: #### A FP. #### [facility] [address] [place] [address] Dr. Nehemias Leal EO # 0.2 103/ul Normal 0.0-0.7 [facility] Comment on above: Performed By: #### A FP. #### [facility] [address] [place] [address] Dr. Nehemias Leal Eosinophils/100 WBC (Bld) 1.7 % Normal 0.9-7.0 [facility] Comment on above: Performed By: #### A FP. #### [facility] [address] [place] [address] Dr. Nehemias Leal Erythrocyte distribution width (RBC) [Ratio] 12.8 % Normal 11.0-15.0 [facility] Comment on above: Performed By: #### A FP. #### [facility] [facility] [address] [place] [address] Dr. Nehemias Leal Hematocrit (Bld) [Volume fraction] 46.2 % Normal 42.0-54.0 [facility] Comment on above: Performed By: #### A FP. #### [facility] [address] [place] [address] Dr. Nehemias Leal Hemoglobin (Bld) [Mass/Vol] 15.8 g/dL Normal 14.0-18.0 [facility] Comment on above: Performed By: #### A FP. #### [facility] [address] [place] [address] Dr. Nehemias Leal IG # 0.05 10e3/ul Critically high 0.00-0.03 [facility] Comment on above: Performed By: #### A FP. #### [facility] [address] [place] [address] Dr. Nehemias Leal IG % 0.5 % Normal 0.0-0.5 [facility] Comment on above: Performed By: #### A FP. #### [facility] [address] [place] [address] Dr. Nehemias Leal LYMPH # 2.5 103/ul Normal 1.2-3.8 [facility] Comment on above: Performed By: #### A FP. #### [facility] [address] [place] [address] Dr. Nehemias Leal Lymphocytes/100 WBC (Bld) 22.9 % Normal 20.5-60.0 [facility] Comment on above: Performed By: #### A FP. #### [facility] [address] [place] [address] Dr. Nehemias Leal MANUAL DIFF REQ NO Normal [facility] Comment on above: Performed By: #### A FP. #### [facility] [address] [place] [address] Dr. Nehemias Leal MCH (RBC) [Entitic mass] 29.3 pg Normal 25.9-34.0 [facility] Comment on above: Performed By: #### A FP. #### [facility] [address] [address] [address] Nehemias Leal MCHC (RBC) [Mass/Vol] 34.2 g/dL Normal 29.9-35.2 [facility] Comment on above: Performed By: #### A FP. #### [facility] [address] [place] [address] Dr. Nehemias Leal MCV (RBC) [Entitic vol] 85.7 fL Normal 80.0-94.0 [facility] Comment on above: Performed By: #### A FP. #### [facility] [address] [place] [address] Dr. Nehemias Leal MONO # 0.7 103/ul Normal 0.3-0.8 [facility] Comment on above: Performed By: #### A FP. #### [facility] [address] [place] [address] Dr. Nehemias Leal Monocytes/100 WBC (Bld) 6.7 % Normal 1.7-12.0 [facility] Comment on above: Performed By: #### A FP. #### [facility] [address] [place] [address] Dr. Nehemias Leal NEUT # 7.4 103/ul Critically high 1.4-6.5 [facility] Comment on above: Performed By: #### A FP. #### [facility] [address] [place] [address] Dr. Nehemias Leal Neutrophils/100 WBC (Bld) 67.7 % Normal 43.0-75.0 [facility] Comment on above: Performed By: #### A FP. #### [facility] [address] [place] [address] Dr. Nehemias Leal Platelet mean volume (Bld) [Entitic vol] 9.8 fL Normal 9.5-13.5 [facility] Comment on above: Performed By: #### A FP. #### [facility] [address] [place] [address] Dr. Nehemias Leal PLT 283 103/ul Normal 150-450 [facility] Comment on above: Performed By: #### A FP. #### [facility] [address] [place], [place] [address] Dr. Nehemias Leal RBC 5.39 106/ul Normal 4.70-6.10 [facility] Comment on above: Performed By: #### A FP. #### [facility] [address] [place], [place] [address] Dr. Nehemias Leal WBC 11.0 103/ul Normal 4.0-11.0 [facility] Comment on above: Performed By: #### A FP. #### [facility] [address] [place], [place] [address] Dr. Nehemias Leal Covid-19 PCR ([facility])on 07-18 SARS-CoV-2 (COVID-19) RNA ANKIT+probe Ql (Unsp spec) Not detected Normal NOT DETECTED [facility] Comment on above: Result Comment: When diagnostic testing is negative, the possibility of a false negative should be considered in the context of a patient's recent exposures and the presence of clinical signs and symptoms consistent with SARS-CoV-2. This test is not yet approved or cleared by the [place] Food and Drug Administration (FDA). This test was developed by [employer], [place], [place]. The performance characteristics of this test were validated by [facility]. The results are not intended to be used as the sole means for clinical diagnosis or patient management decisions. [facility] is authorized under Clinical Laboratory Improvement Amendments (CLIA) to perform high- complexity testing. This test is not yet approved or cleared by the [place] FDA. When there are no FDA-approved or cleared tests available, and other criteria are met, FDA can make tests available under an emergency access mechanism called an Emergency Use Authorization (EUA). The EUA for this test is supported by the [employer] of Health and Human Service's declaration that circumstances exist to justify the emergency use of in vitro diagnostics for the detection and/or diagnosis of the virus that causes COVID-19. This EUA will remain in effect for the duration of the COVID-19 declaration justifying emergency of IVDs, unless it is terminated or revoked by the FDA (after which the test may no longer be used). Performed By: #### A FP. #### [facility] [address] [place] [address] Dr. Nehemias Leal LDHon 08-02-2021 LDH 185 U/L Normal 122-222 [facility] Comment on above: Performed By: #### A FP. #### [facility] [address] [place] [address] Dr. Nehemias Leal PROF CHEM 8 (BAS METB)on Anion gap [Moles/Vol] 11.2 mmol/L Normal [facility] Comment on above: Performed By: #### A FP. #### [facility] [address] [place] [address] Dr. Nehemias Leal Calcium [Mass/Vol] 9.3 mg/dL Normal 8.4-10.2 [facility] Comment on above: Performed By: #### A FP. #### [facility] [address] [place] [address] Dr. Nehemias Leal Chloride [Moles/Vol] 103 mmol/L Normal 98-107 [facility] Comment on above: Performed By: #### A FP. #### [facility] [address] [place] [address] Dr. Nehemias Leal CO2 [Moles/Vol] 27.5 mmol/L Normal 22.0-30.0 [facility] Comment on above: Performed By: #### A FP. #### [facility] [address] [place] [address] Dr. Nehemias Leal Creatinine [Mass/Vol] 0.91 mg/dL Normal 0.66-1.25 [facility] Comment on above: Performed By: #### A FP. #### [facility] [address] [place] [address] Dr. Nehemias Leal EGFR-AF CONGOLESE >60 Normal >=60 [facility] Comment on above: Performed By: #### A FP. #### [facility] [address] [place] [address] Dr. Nehemias Leal EGFR-NON AF CONGOLESE >60 Normal >=60 [facility] Comment on above: Performed By: #### A FP. #### [facility] [address] [address] [address] Nehemias Leal Glucose [Mass/Vol] 108 mg/dL Critically high 74-106 T [facility] Comment on above: Performed By: #### A FP. #### [facility] [address] [address] [address] Nehemias Leal Potassium [Moles/Vol] 3.7 mmol/L Normal 3.4-5.0 [facility] Comment on above: Performed By: #### A FP. #### [facility] [address] [address] [address] Nehemias Leal Sodium [Moles/Vol] 138 mmol/L Normal 137-145 [facility] Comment on above: Performed By: #### A FP. #### [facility] [address] [address] [address] Nehemias Leal Urea nitrogen [Mass/Vol] 17.0 mg/dL Normal 9.0-20.0 [facility] Comment on above: Performed By: #### A FP. #### [facility] [address] [address] [address] Nehemias Leal Urea nitrogen/Creatinine [Mass ratio] 18.7 mg/mg Normal [facility] Comment on above: Performed By: #### A FP. #### [facility] [address] [address] [address] Nehemias Leal PROTIMEon 08-02-2021 INR Coag (PPP) [Relative time] 0.98 {INR} Normal [facility] Comment on above: Performed By: #### P T, PTT #### [facility] [address] [address] [address] Nehemias Leal INR GUIDELINES SEE BELOW Normal [facility] Comment on above: Result Comment: LUIS RED INR: 2.0 - 3.0 CONDITIONS NOT LISTED BELOW 2.5 - 3.5 FOR PROSTHETIC HEART VALVE REPLACEMENT 2.5 - 3.5 RECURRENT THROMBOSIS Performed By: #### P T, PTT #### [facility] [address] [place] [address] Dr. Nehemias Leal PT Coag (PPP) [Time] 10.6 s Normal 9.0-11.6 [facility] Comment on above: Performed By: #### P T, PTT #### [facility] [address] [address] [address] Nehemias Leal PTTon 08-02-2021 aPTT Coag (Bld) [Time] 23.2 s Normal 22.3-36.2 [facility] Comment on above: Performed By: #### P T, PTT #### [facility] [address] [address] [address] Nehemias Leal US Testicular/Scrotumon 07-18 US Testicular/Scrotum CLINICAL HISTORY: Right testicular mass. COMPARISON: June 14, 2021. TECHNIQUE: Ultrasound of the scrotum. FINDINGS: The right testicle measures 4.7 x 3.0 x 2.3 cm. There are calcifications again seen in the right testicle. A mass is seen on the right that measures 3.5 x 2.9 x 2 cm. The mass is hypoechoic and heterogeneous. Vascularity is demonstrated in the mass. The right epididymis is unremarkable and measures 1.9 x 0.2 x 0.8 cm.. The left testicle measures 4.4 x 3.3 x 2.3 cm. The left epididymal head again contains a cyst that measures 5 mm. The epididymal head measures 0.7 x 1.3 x 1.2 cm. Blood flow is demonstrated in both testicles. Bilaterally no hydrocele are varicocele is demonstrated. IMPRESSION: A hypoechoic heterogeneous mass is again seen in the right testicle. It has increased in size compared to previous examination where it measured 2.3 x 3.1 x 1.7 cm. This again is concerning for malignancy. Report reported and signed by Sandrita Ngo on 07/27/2021 1656 Normal [facility] [address] Abdomen/Pelvis w/o Contra ston 06-14-2021 CT Abdomen/Pelvis w/o Contrast HISTORY: Right-sided testicular lump. Microscopic hematuria. BPH. COMPARISON: None available TECHNIQUE: Multiple contiguous axial images were obtained of the abdomen and pelvis without contrast. Multiplanar reformats were obtained. All CT scans at this facility use dose modulation, iterative reconstruction, and/or weight based dosing when appropriate to reduce radiation dose to as low as reasonably achievable. FINDINGS: Lung bases are clear. Evaluation of the abdominal and pelvic viscera is suboptimal without intravenous contrast. The liver is mildly enlarged measuring approximately 20 cm in craniocaudal length. Diffuse hypoattenuation of the liver. The gallbladder, stomach, pancreas, spleen, and adrenal glands appear within normal limits given the limitations of a noncontrast CT. The unenhanced kidneys appear within normal limits. No urinary tract calculi or hydronephrosis.No evidence of contour deforming renal mass identified on this unenhanced examination. Retroaortic left renal vein. The urinary bladder is suboptimally distended but otherwise unremarkable. The prostate appears within normal limits. No retroperitoneal or mesenteric lymphadenopathy. Abdominal aorta is non-aneurysmal. No small bowel obstruction. No overt colonic mass or pericolonic inflammation. The appendix is within normal limits. No free air or free fluid. No acute osseous abnormality. Mild degenerative changes of the spine. IMPRESSION: No acute abdominopelvic process. Hepatomegaly and hepatic steatosis. Report reported and signed by Cj Huerta on 06/14/2021 1225 Normal [facility] US Testicular/Scrotumon 12-2 US Testicular/Scrotum HISTORY: Right testicle lump COMPARISON: None available TECHNIQUE: Ultrasound examination of the scrotum was performed. FINDINGS: The right testicle measures 4.8 x 3.4 x 2.1 cm. It demonstrates normal echogenicity. A masslike lesion measures 2.3 x 3.1 x 1.7 cm and is hypoechoic and heterogenous demonstrating internal vasculature Normal blood flow is identified. Multiple small calcifications are identified within the right testicle, the largest measuring approximately 3 mm. The right epididymal head measures 0.6 cm and demonstrates no solid masses. The left testicle measures 4.2 x 3.1 x 2.5 cm. It demonstrates normal echogenicity. No focal masses. Normal blood flow is identified. The left epididymal head measures 0.9 cm and demonstrates no solid masses but contains an epididymal head cyst measuring 5 x 5 x 3 mm. No hydrocele or varicocele. IMPRESSION: Lesion within the right testicle measuring 2.3 x 3.1 x 1.7 cm is most concerning for malignancy which much be excluded. Report reported and signed by Cj Huerta on 06/14/2021 1304 Normal [facility] Vital Signs Date Time Vital Sign Value Performing Clinician Facility 03-23-2024 10:05-0400 Blood Pressure Location Chantal [facility] 03-23-2024 10:05-0400 Diastolic blood pressure 92 mm[Hg] Chantal LE[facility] 03-23-2024 10:05-0400 Heart rate 70 /min Chantal LEW[facility] 03-23-2024 10:05-0400 Respiratory rate 16 /min Chantal LEWIS [facility] 03-23-2024 10:05-0400 Systolic blood pressure 130 mm[Hg] Ch[facility]al [facility] 02-06-2024 15:46-0400 Body mass index (BMI) [Ratio] 48.79 kg/m2 Jordan Peters MD Work Phone: [facility] 02-06-2024 15:46-0400 Body temperature 97.81 [degF] Jordan Peters MD Work Phone: [facility] 02-06-2024 15:46-0400 Body weight 158.6 kg Jordan Peters MD Work Phone: [facility] 02-06-2024 15:46-0400 Diastolic blood pressure 91 mm[Hg] Jordan Peters MD Work Phone: [facility] 02-06-2024 15:46-0400 Heart rate 75 /min Jordan Peters MD Work Phone: [facility] 02-06-2024 15:46-0400 Respiratory rate 18 /min Jordan Peters MD Work Phone: [facility] 02-06-2024 15:46-0400 SaO2% (BldA) [Mass fraction] 100 % Jordan Peters MD Work Phone: [facility] 02-06-2024 15:46-0400 Systolic blood pressure 154 mm[Hg] Jordan Peters MD Work Phone: [facility] 10-22-2023 15:01-0400 Body mass index (BMI) [Ratio] 48.91 kg/m2 ARJUN Jasso MD Work Phone: [facility] 10-22-2023 15:01-0400 Body temperature 97.3 [degF] ARJUN Jasso MD Work Phone: [facility] 10-22-2023 15:01-0400 Body weight 159 kg ARJUN Jasso MD Work Phone: [facility] 10-22-2023 15:01-0400 Diastolic blood pressure 85 mm[Hg] ARJUN Jasso MD Work Phone: [facility] 10-22-2023 15:01-0400 Heart rate 76 /min ARJUN Jasso MD Work Phone: [facility] 10-22-2023 15:01-0400 Respiratory rate 18 /min ARJUN Jasso MD Work Phone: [facility] 10-22-2023 15:01-0400 SaO2% (BldA) [Mass fraction] 95 % ARJUN Jasso MD Work Phone: [facility] 10-22-2023 15:01-0400 Systolic blood pressure 137 mm[Hg] ARJUN Jasso MD Work Phone: [facility] 08-13-2023 15:04-0500 Body temperature 97.11 [degF] ARJUN Jasso MD Work Phone: [facility] 08-13-2023 15:04-0500 Body weight 155.4 kg ARJNU Jasso MD Work Phone: [facility] 08-13-2023 15:04-0500 Diastolic blood pressure 86 mm[Hg] ARJUN Jasso MD Work Phone: [facility] 08-13-2023 15:04-0500 Heart rate 73 /min ARJUN Jasso MD Work Phone: [facility] 08-13-2023 15:04-0500 Respiratory rate 18 /min ARJUN Jasso MD Work Phone: [facility] 08-13-2023 15:04-0500 SaO2% (BldA) [Mass fraction] 97 % ARJUN Jasso MD Work Phone: [facility] 08-13-2023 15:04-0500 Systolic blood pressure 141 mm[Hg] ARJUN Jasso MD Work Phone: [facility] 07-22-2023 09:44-0500 Body temperature 97.7 [degF] ARJUN Jasso MD Work Phone: [facility] 07-22-2023 09:44-0500 Body weight 152.4 kg ARJUN Jasso MD Work Phone: [facility] 07-22-2023 09:44-0500 Diastolic blood pressure 108 mm[Hg] ARJUN Jasso MD Work Phone: [facility] 07-22-2023 09:44-0500 Heart rate 64 /min ARJUN Jasso MD Work Phone: [facility] 07-22-2023 09:44-0500 Respiratory rate 18 /min ARJUN Jasso MD Work Phone: [facility] 07-22-2023 09:44-0500 SaO2% (BldA) [Mass fraction] 98 % ARJUN Jasso MD Work Phone: [facility] 07-22-2023 09:44-0500 Systolic blood pressure 165 mm[Hg] ARJUN Jasso MD Work Phone: [facility] 06-20-2023 10:15-0500 Body height Krys Allen Other [employer] Other 06-20-2023 10:15-0500 Body mass index (BMI) [Ratio] 47.2 kg/m2 Krys Allen Other [employer] Other 06-20-2023 10:15-0500 Body weight 149.23 kg Krys Allen Other [employer] Other 06-20-2023 10:15-0500 Diastolic blood pressure 82 mm[Hg] Krys Allen Other [employer] Other 06-20-2023 10:15-0500 SaO2% (BldA) [Mass fraction] 98 % Krys Allen Other [employer] Other 06-20-2023 10:15-0500 Systolic blood pressure 137 mm[Hg] Krys Allen Other [employer] Other 05-23-2023 15:29-0500 Body temperature 97.7 [degF] Jordan Peters MD Work Phone: [facility] 05-23-2023 15:29-0500 Body weight 150.14 kg Jordan Peters MD Work Phone: [facility] 05-23-2023 15:29-0500 Diastolic blood pressure 92 mm[Hg] Jordan Peters MD Work Phone: [facility] 05-23-2023 15:29-0500 Heart rate 69 /min Jordan Peters MD Work Phone: [facility] 05-23-2023 15:29-0500 Respiratory rate 16 /min Jordan Peters MD Work Phone: [facility] 05-23-2023 15:29-0500 SaO2% (BldA) [Mass fraction] 95 % Jordan Peters MD Work Phone: [facility] 05-23-2023 15:29-0500 Systolic blood pressure 148 mm[Hg] Jordan Peters MD Work Phone: [facility] 02-14-2023 15:26-0400 Body height 180.3 cm Rosette Jossie PA-C Work Phone: [facility] 02-14-2023 15:26-0400 Body temperature 97.39 [degF] Rosette Jossie PA-C Work Phone: [facility] 02-14-2023 15:26-0400 Body weight 157.49 kg Rosette Jossie PA-C Work Phone: [facility] 02-14-2023 15:26-0400 Diastolic blood pressure 89 mm[Hg] Rosette Jossie PA-C Work Phone: [facility] 02-14-2023 15:26-0400 Heart rate 69 /min Rosette Jossie PA-C Work Phone: [facility] 02-14-2023 15:26-0400 Respiratory rate 16 /min Rosette Jossie PA-C Work Phone: [facility] 02-14-2023 15:26-0400 SaO2% (BldA) [Mass fraction] 97 % Rosette Jossie PA-C Work Phone: [facility] 02-14-2023 15:26-0400 Systolic blood pressure 156 mm[Hg] Rosette Jossie PA-C Work Phone: [facility] 07-09-2022 14:58-0500 Body temperature 97.5 [degF] Jordan Peters MD Work Phone: [facility] 07-09-2022 14:58-0500 Body weight 150.23 kg Jordan Peters MD Work Phone: [facility] 07-09-2022 14:58-0500 Diastolic blood pressure 91 mm[Hg] Jordan Peters MD Work Phone: [facility] 07-09-2022 14:58-0500 Heart rate 70 /min Jordan Peters MD Work Phone: [facility] 07-09-2022 14:58-0500 Respiratory rate 16 /min Jordan Peters MD Work Phone: [facility] 07-09-2022 14:58-0500 SaO2% (BldA) [Mass fraction] 96 % Jordan Peters MD Work Phone: [facility] 07-09-2022 14:58-0500 Systolic blood pressure 161 mm[Hg] Jordan Peters MD Work Phone: [facility] 04-09-2022 15:13-0400 Body height 179.1 cm Jordan Peters MD Work Phone: [facility] 04-09-2022 15:13-0400 Body temperature 97.59 [degF] Jordan Peters MD Work Phone: [facility] 04-09-2022 15:13-0400 Body weight 145.15 kg Jordan Peters MD Work Phone: [facility] 04-09-2022 15:13-0400 Diastolic blood pressure 83 mm[Hg] Jordan Peters MD Work Phone: [facility] 04-09-2022 15:13-0400 Heart rate 70 /min Jordan Peters MD Work Phone: [facility] 04-09-2022 15:13-0400 Respiratory rate 16 /min Jordan Peters MD Work Phone: [facility] 04-09-2022 15:13-0400 SaO2% (BldA) [Mass fraction] 97 % Jordan Peters MD Work Phone: [facility] 04-09-2022 15:13-0400 Systolic blood pressure 145 mm[Hg] Jordan Peters MD Work Phone: [facility] 12-26-2021 15:44-0400 Body height 179.1 cm Jodran Peters MD Work Phone: [facility] 12-26-2021 15:44-0400 Body temperature 97.5 [degF] Jordan Peters MD Work Phone: [facility] 12-26-2021 15:44-0400 Body weight 144.88 kg Jordan Peters MD Work Phone: [facility] 12-26-2021 15:44-0400 Diastolic blood pressure 90 mm[Hg] Jordan Peters MD Work Phone: [facility] 12-26-2021 15:44-0400 Heart rate 66 /min Jordan Peters MD Work Phone: [facility] 12-26-2021 15:44-0400 Respiratory rate 18 /min Jordan Peters MD Work Phone: [facility] 12-26-2021 15:44-0400 SaO2% (BldA) [Mass fraction] 97 % Jordan Peters MD Work Phone: [facility] 12-26-2021 15:44-0400 Systolic blood pressure 157 mm[Hg] Jordan Peters MD Work Phone: [facility] 11-27-2021 15:33-0400 Blood Pressure Location Chantla LEW[facility] 11-27-2021 15:33-0400 Diastolic blood pressure 78 mm[Hg] Chantal [facility] 11-27-2021 15:33-0400 Heart rate 78 /min Chantal LE[facility] 11-27-2021 15:33-0400 Systolic blood pressure 138 mm[Hg] Chantal LEW[facility] 09-26-2021 15:17-0400 Body height 179.1 cm Jordan Peters MD Work Phone: [facility] 09-26-2021 15:17-0400 Body temperature 97.81 [degF] Jordan Peters MD Work Phone: [facility] 09-26-2021 15:17-0400 Body weight 145.15 kg Jordan Peters MD Work Phone: [facility] 09-26-2021 15:17-0400 Diastolic blood pressure 106 mm[Hg] Jordan Peters MD Work Phone: [facility] 09-26-2021 15:17-0400 Heart rate 72 /min Jordan Peters MD Work Phone: [facility] 09-26-2021 15:17-0400 Respiratory rate 18 /min Jordan Peters MD Work [facility]: [facility] [facility] 09-26-2021 15:17-0400 SaO2% (BldA) [Mass fraction] 97 % Jordan Peters MD Work Phone: [facility] 09-26-2021 15:17-0400 Systolic blood pressure 169 mm[Hg] Jordan Peters MD Work Phone: [facility] 04-25-2021 10:45-0500 Body height Pravin Olexa Other [employer] Other 04-25-2021 10:45-0500 Body mass index (BMI) [Ratio] 44.82 kg/m2 Pravin Olexa Other [employer] Other 04-25-2021 10:45-0500 Body weight 141.7 kg Pravin Olexa Other [employer] Other Encounters Encounter Date Encounter Type Care Provider Facility Start: 01-22-2025 ambulatory Chantal Ortiz ty:[facility] [place] Start: 05-06-2024 End: 05-06-2024 ambulatory JORDAN PETERS Facility:[facility] Start: 05-06-2024 End: 05-06-2024 Subsequent hospital visit by physician Arrival Time Radiology Work Phone: Radiology [facility] Comment on above: Malignant neoplasm o f testicle, unspecified laterality, 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] Start: 05-04-2024 End: 05-04-2024 Refill Ashli Ni DO Work Phone: [facility] [phone] Comment on above: Acute right ankle pa in Start: 03-23-2024 End: 03-23-2024 Patient encounter procedure Chantal LEWIS [facility] Start: 03-23-2024 End: 03-23-2024 Refill Wander Joseph LPN Work Phone: [facility] [phone] Comment on above: Insomnia, unspecifie d type Start: 03-06-2024 End: 03-06-2024 ambulatory ASHLI NI Not Available Start: 02-06-2024 End: 02-06-2024 Patient encounter procedure Jordan Peters MD Work Phone: Hematology/Oncology Start: 02-06-2024 End: 02-06-2024 ambulatory Jordan Peters MD Work Phone: Hematology/Oncology Comment on above: 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) Start: 02-05-2024 End: 02-05-2024 ambulatory JORDAN PETERS Facility:[facility] Start: 01-15-2024 End: 01-15-2024 ambulatory YEHUDA HOROWITZ Not Available Start: 10-28-2023 Telephone encounter Jordan betancourt MD Work Phone: Radiation Oncology Comment on above: Appointment Start: 10-22-2023 End: 10-22-2023 ambulatory ASHLI NI JR Facility:[facility] Start: 10-22-2023 End: 10-22-2023 Patient encounter procedure Dimitry Jasso MD Work Phone: Radiation Oncology Comment on above: 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) Start: 10-15-2023 End: 10-15-2023 ambulatory ASHLI NI JR Facility:[facility] Start: 10-15-2023 End: 10-15-2023 Subsequent hospital visit by physician Arrival Time Radiology Work Phone: Radiology [facility] Comment on above: Malignant neoplasm o f testicle, unspecified laterality, 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] Start: 10-08-2023 End: 10-08-2023 ambulatory ASHLI NI JR Facility:[facility] Start: 10-07-2023 Social Work Cathi Faulkner ACCOUNTING CLERK Hematolo gy/Oncology Start: 08-13-2023 End: 08-13-2023 ambulatory Dimitry JASSO Facility:[facility] Start: 08-13-2023 End: 08-13-2023 Patient encounter procedure Dimitry Jasso MD Work Phone: Radiation Oncology Comment on above: Malignant neoplasm o f testicle, unspecified laterality, unspecified whether descended or undescended (HCC) (Primary Dx) Start: 08-09-2023 Telephone encounter Jordan betancourt MD Work Phone: [facility] Comment on above: Future Appointment Start: 08-02-2023 Patient encounter procedure Dimitry Jasso MD Work Phone: [facility] Start: 08-02-2023 Radiation Oncology Note Dimitry Jasso MD Work Phone: Radiation Oncology Comment on above: Completion Note Start: 08-02-2023 End: 08-02-2023 ambulatory Dimitry JASSO Facility:[facility] Start: 08-01-2023 End: 08-01-2023 ambulatory Dimitry JASSO Facility:[facility] Start: 07-31-2023 End: 07-31-2023 ambulatory Dimitry JASSO Facility:[facility] Start: 07-30-2023 End: 07-30-2023 ambulatory Dimitry JASSO Facility:[facility] Start: 07-29-2023 End: 07-29-2023 ambulatory Dimitry JASSO Facility:[facility] Start: 07-29-2023 End: 07-29-2023 Patient encounter procedure Dimitry Jasso MD Work Phone: Radiation Oncology Comment on above: Malignant neoplasm o f testicle, unspecified laterality, unspecified whether descended or undescended (HCC) (Primary Dx) Start: 07-26-2023 Telephone encounter Dimitry Jasso MD Work Phone: Radiation Oncology Comment on above: Medication Problem Start: 07-26-2023 End: 07-26-2023 ambulatory Dimitry JASSO Facility:[facility] Start: 07-25-2023 End: 07-25-2023 Patient encounter procedure Lab[facility] Work Phone: Radiation Oncology Comment on above: Malignant neoplasm o f testicle, unspecified laterality, unspecified whether descended or undescended (HCC) Refill Request Start: 07-25-2023 Telephone encounter Dimitry Jasso MD Work Phone: Radiation Oncology Comment on above: Medication Problem Start: 07-25-2023 End: 07-25-2023 ambulatory ASHLI NI JR Facility:[facility] Start: 07-24-2023 Telephone encounter Dimitry Jasso MD Work Phone: Radiation Oncology Start: 07-24-2023 End: 07-24-2023 ambulatory ASHLI NI JR Facility:[facility] Start: 07-23-2023 End: 07-23-2023 ambulatory ASHLI NI JR Facility:[facility] Start: 07-22-2023 End: 07-22-2023 Patient encounter procedure Dimitry Jasso MD Work Phone: Radiation Oncology Comment on above: Malignant neoplasm o f testicle, unspecified laterality, unspecified whether descended or undescended (HCC) (Primary Dx) Start: 07-22-2023 End: 07-22-2023 ambulatory Dimitry JASSO Facility:[facility] Start: 07-19-2023 End: 07-19-2023 ambulatory ASHLI NI JR Facility:[facility] Start: 07-18-2023 End: 07-18-2023 ambulatory ASHLI NI JR Facility:[facility] Start: 07-18-2023 End: 07-18-2023 Patient encounter procedure Lab[facility] Work Phone: Radiation Oncology Comment on above: Malignant neoplasm o f testicle, unspecified laterality, unspecified whether descended or undescended (HCC) Start: 07-17-2023 End: 07-17-2023 ambulatory Dimitry JASSO Facility:[facility] Start: 07-16-2023 End: 07-16-2023 ambulatory ASHLI NI JR Facility:[facility] Start: 07-15-2023 End: 07-15-2023 ambulatory Dimitry JASSO Facility:[facility] Start: 07-05-2023 End: 07-08-2023 ambulatory Dimitry THIERNOVALENTINA JASSO Facility:[facility] Start: 07-05-2023 End: 07-05-2023 Subsequent hospital visit by physician Dimitry Jasso MD Work Phone: Radiology [facility] Start: 06-27-2023 End: 06-27-2023 ambulatory ASHLI NI JR Facility:[facility] Start: 06-20-2023 Office outpatient vi sit 25 minutes Krys Allen [facility] Start: 06-20-2023 End: 06-20-2023 ambulatory DO Caity Ni Work Phone: [facility] Work Phone: Start: 06-20-2023 End: 06-20-2023 Patient encounter procedure DO Caity Ni Work Phone: [facility] Work Phone: Start: 06-07-2023 ambulatory JORDAN PETERS Facility:[facility] Start: 06-07-2023 End: 06-07-2023 Subsequent hospital visit by physician Arrival Time Radiology Work Phone: Radiology [facility] Start: 05-23-2023 End: 05-23-2023 ambulatory Jordan Peters MD Work Phone: Hematology/Oncology Comment on above: 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) Start: 05-23-2023 End: 05-23-2023 Patient encounter procedure Jordan Peters MD Work Phone: [facility] Start: 05-17-2023 End: 05-17-2023 ambulatory ROSETTE Alejandro GAN Facility:[facility] Start: 05-17-2023 End: 05-17-2023 Subsequent hospital visit by physician Arrival Time Radiology Work Phone: Radiology [facility] Comment on above: 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] Start: 02-19-2023 Telephone encounter Flavio London Hematology/Oncology Comment on above: Results Start: 02-14-2023 End: 02-14-2023 ambulatory Rosette Alejandro Jossie PA-C Work Phone: Hematology/Oncology Comment on above: 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); Essential hypertension Start: 02-14-2023 End: 02-14-2023 Patient encounter procedure Rosette Alejandro Jossie PA-C Work Phone: [facility] Start: 10-31-2022 End: 10-31-2022 Subsequent hospital visit by physician Arrival Time Radiology Work Phone: Radiology [facility] Start: 07-09-2022 End: 07-09-2022 ambulatory Jordan Peters MD Work Phone: Hematology/Oncology Comment on above: 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); Essential hypertension Start: 07-09-2022 End: 07-09-2022 Patient encounter procedure Jordan Peters MD Work Phone: [facility] Start: 04-17-2022 End: 04-17-2022 Patient encounter procedure DO Caity Ni Work Phone: [facility] Start: 04-17-2022 End: 04-17-2022 ambulatory DO Caity Ni Work Phone: [facility] Work Phone: Start: 04-17-2022 Office outpatient vi sit 15 minutes Krys Allen [facility] Start: 04-09-2022 End: 04-09-2022 ambulatory Jordan Peters MD Work Phone: Hematology/Oncology Comment on above: 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) Start: 04-09-2022 End: 04-09-2022 Patient encounter procedure Jordan Peters MD Work Phone: [facility] Start: 04-03-2022 End: 04-03-2022 Subsequent hospital visit by physician Arrival Time Radiology Work Phone: Radiology [facility] Start: 01-30-2022 End: 01-30-2022 Patient encounter procedure DO Caity Ni Work Phone: [facility] Start: 01-02-2022 End: 01-02-2022 Patient encounter procedure DO Caity Ni Work Phone: [facility] Start: 12-26-2021 End: 12-26-2021 ambulatory Jordan Peters MD Work Phone: Hematology/Oncology Comment on above: 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) Start: 12-26-2021 End: 12-26-2021 Patient encounter procedure Jordan Peters MD Work Phone: [facility] Start: 12-20-2021 Telephone encounter Jordan betancourt MD Work Phone: Hematology/Oncology Comment on above: Lab Orders Start: 11-27-2021 End: 11-27-2021 Patient encounter procedure Chantal LEWIS [facility] Start: 09-26-2021 End: 09-26-2021 ambulatory Jordan Peters MD Work Phone: Hematology/Oncology Comment on above: 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) Start: 09-26-2021 End: 09-26-2021 Patient encounter procedure Jordan Peters MD Work Phone: [facility] Start: 09-19-2021 End: 09-19-2021 Subsequent hospital visit by physician Arrival Time Radiology Work Phone: Radiology [facility] Comment on above: Malignant neoplasm o f descended right testis (HCC) [C62.11] Start: 08-17-2021 End: 08-17-[address] Dimitry NI Facility:[facility] Start: 08-04-2021 Encounter for preprocedural cardiovascular examination DR CHANTAL LEWIS [facility] Start: 08-04-2021 Encounter for preprocedural laboratory examination DR CHANTAL LEWIS [facility] Start: 08-03-2021 End: 08-03-[address] CHANTAL LEWIS Facility:[facility] Start: 08-02-2021 End: 08-03-[address] HCANTAL LEWIS Facility:[facility] Start: 08-02-2021 End: 08-03-2021 Encounter for preprocedural cardiovascular examination DR CHANTAL LEWIS Facility:[facility] Start: 04-25-2021 End: 04-25-2021 ambulatory Pravin Olexa Other [employer] Other Start: 04-25-2021 Office outpatient vi sit 15 minutes Pravin Olexa [facility] Start: 03-21-2021 Office outpatient ne w 30 minutes Pravin Olexa [facility] Procedures Date Procedure Procedure Detail Performing Clinician Start: 05-06-2024 Ct abdomen & pelvis w/contrast material Jordan Petres MD Work Phone: Start: 05-06-2024 Ct thorax w/contrast material Jordan Peters MD Work Phone: Start: 10-15-[address] atten uation skull base mid-thigh G Thierno Jasso MD Work Phone: Start: 10-15-2023 End: 10-15-2023 Alpha-fetoprotein serum G Thierno grande MD Work Phone: Start: 07-25-2023 Blood count complete auto&auto difrntl wbc Fazal Kelly MD Work Phone: Start: 07-18-2023 Blood count complete auto&auto difrntl wbc Fazal Kelly MD Work Phone: Start: 06-07-[address] atten uation skull base mid-thigh Jordan Peters MD Work Phone: Start: 06-07-2023 Gluc bld gluc mntr d ev cleared fda spec home use [facility] Provider Start: 05-17-2023 Ct abdomen & pelvis w/contrast material Rosette Allen Jossie PA-C Work Phone: Start: 05-17-2023 Ct thorax w/contrast material Rosette Allen Jossie PA-C Work Phone: Start: 05-17-2023 Alpha-fetoprotein serum Rosette Allen Jossie PA-C Work Phone: Start: 10-31-2022 Ct abdomen & pelvis w/contrast material Jordan Peters MD Work Phone: Start: 10-31-2022 Ct thorax w/contrast material Jordan Peters MD Work Phone: Start: 10-31-2022 Alpha-fetoprotein serum Jordan Peters MD Work Phone: Start: 04-03-2022 Ct abdomen & pelvis w/contrast material Jordan Peters MD Work Phone: Start: 04-03-2022 Ct thorax w/contrast material Jordan Peters MD Work Phone: Start: 04-03-2022 Blood count complete auto&auto difrntl wbc Jordan Peters MD Work Phone: Start: 09-26-2021 Adult depression scr eening assessment Jordan Peters MD Work Phone: Start: 09-19-2021 Ct abdomen & pelvis w/contrast material Jordan Peters MD Work Phone: Start: 09-19-2021 Ct thorax w/contrast material Jordan Peters MD Work Phone: Start: 09-19-2021 Alpha-fetoprotein serum Jordan Peters MD Work Phone: Start: 08-03-2021 Right total orchidectomy Chantal LEWIS Cystoscopy Chantal LEWIS Plan of Treatment Date Care Activity Detail Author Start: 03-06-2027 Diabetes Screening Diabetes Screenin g [facility] Start: 02-05-2027 Diabetes Screening Diabetes Screenin g [facility] Start: 05-17-2026 Diabetes Screening Diabetes Screenin g [facility] Start: 02-14-2026 DIABETES SCREEN DIABETES SCREEN [facility] Start: 07-09-2025 [facility] Start: 04-03-2025 [facility]ABET[facility]CREEN [facility] Start: 12-26-2024 DIABETES SCREEN [facility] Start: 09-19-2024 DIABETES SCREEN [facility] Start: 05-13-2024 End: 05-13-2024 Patient encounter procedure 05/13/2024 9:15 AM EST Office Visit Radiation Oncology [address] [place] [address] Dimitry Jasso MD [address] [place] [address] Followup Radiation Oncology Comment on above: Followup Start: 05-12-2024 End: 05-12-2024 Follow-up encounter 05/12/2024 3:45 PM EST Visit (SP) Office Hematology/Oncology [address] [place] [address] Jordan Peters MD [address] [place] [address] Followup Hematology/Oncology Comment on above: Followup Start: 05-12-2024 End: 05-12-2024 Patient encounter procedure 05/12/2024 3:30 PM EST Office Visit Radiation Oncology [address] [place] [address] Dimitry Jasso MD [address] [place] [address] Followup Radiation Oncology Comment on above: Followup Start: 05-06-2024 End: 11-26-2024 CT Abdomen and Pelvis W contrast IV CT ABD/PEL W IVCON Radiology Routine Malignant neoplasm of testicle, unspecified laterality, unspecified whether descended or undescended (HCC) Expected: 05/06/2024, Expires: 11/26/2024 [facility] Comment on above: Expected: 05/06/2024 , Expires: 11/26/2024 Start: 05-06-2024 End: 11-26-2024 CT Chest W contrast IV CT CHEST W IVCON Radiology Routine Malignant neoplasm of testicle, unspecified laterality, unspecified whether descended or undescended (HCC) Expected: 05/06/2024, Expires: 11/26/2024 [facility] Comment on above: Expected: 05/06/2024 , Expires: 11/26/2024 Start: 05-06-2024 End: 05-06-2024 Patient encounter procedure 05/06/2024 12:15 PM EST Appointment Radiology Pet [facility] [address] [place] [address] CT CAP [facility] Comment on above: CT CAP Start: 2024 Shingrix Vaccine (1 of 2) Shingrix Vaccine (1 of 2) [facility] Start: 02-16-2024 Covid-19 Vaccine ( season) Covid-19 Vaccine ( season) [facility] Start: 02-16-2024 Covid-19 Vaccine ( season) Covid-19 Vaccine ( season) [facility] Start: 02-16-2024 Influenza vaccination C [facility] Start: 02-06-2024 End: 02-06-2024 Follow-up encounter 02/06/2024 3:45 PM EDT Visit (SP) Office Hematology/Oncology [address] [facility] [address] [place] [address] Jordan Peters MD [address] [place] [address] Followup Hematology/Oncology Comment on above: Followup Start: 02-06-2024 End: 02-06-2024 Patient encounter procedure 02/06/2024 3:30 PM EDT Office Visit [facility] [address] [place] [address] [place] [address] lab [facility] Comment on above: lab Start: 01-28-2024 End: 04-28-2024 [id number] [Mass/volume] in Serum or Plasma ALPHA FETOPROTEIN Lab Routine Malignant neoplasm of testicle, unspecified laterality, unspecified whether descended or undescended (HCC) Expected: 01/28/2024, Expires: 04/28/2024 [facility] Comment on above: Expected: 01/28/2024 , Expires: 04/28/2024 Start: 01-28-2024 End: 04-28-2024 CBC W Auto Differential panel - Blood COMPLETE BLOOD COUNT AND DIFFERENTIAL Lab Routine Malignant neoplasm of testicle, unspecified laterality, unspecified whether descended or undescended (HCC) Expected: 01/28/2024, Expires: 04/28/2024 [facility] Work Phone: Comment on above: Expected: 01/28/2024 , Expires: 04/28/2024 Start: 01-28-2024 End: 04-28-2024 Choriogonadotropin.beta subunit [Units/volume] in Serum or Plasma BETA HCG QUANT TUMOR MARKER Lab Routine Malignant neoplasm of testicle, unspecified laterality, unspecified whether descended or undescended (HCC) Expected: 01/28/2024, Expires: 04/28/2024 [facility] Comment on above: Expected: 01/28/2024 , Expires: 04/28/2024 Start: 01-28-2024 End: 04-28-2024 Comprehensive metabolic 2000 panel - Serum or Plasma COMPREHENSIVE METABOLIC PANEL Lab Routine Malignant neoplasm of testicle, unspecified laterality, unspecified whether descended or undescended (HCC) Expected: 01/28/2024, Expires: 04/28/2024 [facility] Comment on above: Expected: 01/28/2024 , Expires: 04/28/2024 Start: 01-28-2024 End: 04-28-2024 Lactate dehydrogenase [Enzymatic activity/volume] in Serum or Plasma LACTATE DEHYDROGENASE Lab Routine Malignant neoplasm of testicle, unspecified laterality, unspecified whether descended or undescended (HCC) Expected: 01/28/2024, Expires: 04/28/2024 [facility] Comment on above: Expected: 01/28/2024 , Expires: 04/28/2024 Start: 12-10-2023 End: 12-10-2023 Follow-up encounter 12/10/2023 2:00 PM EDT Visit (SP) Office Hematology/Oncology [address] [place] [address] Jordan Peters MD [address] [place] [address] Followup Hematology/Oncology Comment on above: Followup Start: 12-03-2023 End: 12-03-2023 Patient encounter procedure 12/03/2023 11:30 AM EDT Appointment Radiology [facility] [address] [place] [address] Comment on above: PET Start: 10-22-2023 End: 10-22-2023 Patient encounter procedure 10/22/2023 3:00 PM EDT Office Visit Radiation Oncology [address] [place] [address] Dimitry Jasso MD [address] [place] [address] PATIENT NEEDS PFA APPT SET UP, NO INSURANCE Radiation Oncology Comment on above: PATIENT NEEDS PFA APPT SET UP, NO INSURANCE Start: 10-12-2023 End: 01-11-2024 [id number] [Mass/volume] in Serum or Plasma ALPHA FETOPROTEIN BL Lab Routine Malignant neoplasm of testicle, unspecified laterality, unspecified whether descended or undescended (HCC) Expected: 10/12/2023, Expires: 01/11/2024 [facility] Work Phone: Comment on above: Expected: 10/12/2023 , Expires: 01/11/2024 Start: 10-12-2023 End: 01-11-2024 CBC W Auto Differential panel - Blood CBC + DIFF Lab Routine Malignant neoplasm of testicle, unspecified laterality, unspecified whether descended or undescended (HCC) Expected: 10/12/2023, Expires: 01/11/2024 [facility] Work Phone: Comment on above: Expected: 10/12/2023 , Expires: 01/11/2024 Start: 10-12-2023 End: 01-11-2024 Choriogonadotropin.beta subunit [Units/volume] in Serum or Plasma BETA HCG QUANT TUMOR MARKER Lab Routine Malignant neoplasm of testicle, unspecified laterality, unspecified whether descended or undescended (HCC) Expected: 10/12/2023, Expires: 01/11/2024 [facility] Work Phone: Comment on above: Expected: 10/12/2023 , Expires: 01/11/2024 Start: 10-12-2023 End: 01-11-2024 Lactate dehydrogenase [Enzymatic activity/volume] in Serum or Plasma LD LACTATE DEHYDRO Lab Routine Malignant neoplasm of testicle, unspecified laterality, unspecified whether descended or undescended (HCC) Expected: 10/12/2023, Expires: 01/11/2024 [facility] Work Phone: Comment on above: Expected: 10/12/2023 , Expires: 01/11/2024 Start: 10-12-2023 End: 09-11-2024 PET+CT Guidance for localization of tumor of Skull base to mid-thigh-- W 18F-FDG IV NM PET/CT SKULL-THIGH SUBSEQUENT Radiology Routine Malignant neoplasm of testicle, unspecified laterality, unspecified whether descended or undescended (HCC) Expected: 10/12/2023, Expires: 09/11/2024 [facility] Work Phone: Comment on above: Expected: 10/12/2023 , Expires: 09/11/2024 Start: 10-12-2023 End: 01-11-2024 Prostate specific Ag [Mass/volume] in Serum or Plasma PSA/PROSTSPECAG DIAG Lab Routine Malignant neoplasm of testicle, unspecified laterality, unspecified whether descended or undescended (HCC) Expected: 10/12/2023, Expires: 01/11/2024 [facility] Work Phone: Comment on above: Expected: 10/12/2023 , Expires: 01/11/2024 Start: 08-13-2023 End: 11-12-2023 CBC W Auto Differential panel - Blood CBC + DIFF Lab Routine Malignant neoplasm of testicle, unspecified laterality, unspecified whether descended or undescended (HCC) Expected: 08/13/2023, Expires: 11/12/2023 [facility] Work Phone: Comment on above: Expected: 08/13/2023 , Expires: 11/12/2023 Start: 06-17-2023 Behavioral Health Screening Behavioral Health Screening [facility] Start: 06-17-2023 Depression Assessment Depression Ass essment [facility] Start: 05-16-2023 End: 07-16-2023 [id number] [Mass/volume] in Serum or Plasma ALPHA FETOPROTEIN BL Lab Routine Seminoma of descended right testis (HCC) Expected: 05/16/2023 (Approximate), Expires: 07/16/2023 [facility] Work Phone: Comment on above: Expected: 05/16/2023 (Approximate), Expires: 07/16/2023 Start: 05-16-2023 End: 07-16-2023 CBC W Auto Differential panel - Blood CBC + DIFF Lab Routine Seminoma of descended right testis (HCC) Expected: 05/16/2023 (Approximate), Expires: 07/16/2023 [facility] Work Phone: Comment on above: Expected: 05/16/2023 (Approximate), Expires: 07/16/2023 Start: 05-16-2023 End: 07-16-2023 Choriogonadotropin.beta subunit [Units/volume] in Serum or Plasma BETA HCG QUANT TUMOR MARKER Lab Routine Seminoma of descended right testis (HCC) Expected: 05/16/2023 (Approximate), Expires: 07/16/2023 [facility] Work Phone: Comment on above: Expected: 05/16/2023 (Approximate), Expires: 07/16/2023 Start: 05-16-2023 End: 07-16-2023 Comprehensive metabolic 2000 panel - Serum or Plasma COMP METABOLIC PANEL Lab Routine Seminoma of descended right testis (HCC) Expected: 05/16/2023 (Approximate), Expires: 07/16/2023 [facility] Work Phone: Comment on above: Expected: 05/16/2023 (Approximate), Expires: 07/16/2023 Start: 05-16-2023 End: 03-15-2024 Ct abdomen & pelvis w/contrast material CT ABD/PEL W IVCON Radiology Routine Seminoma of descended right testis (HCC) Expected: 05/16/2023 (Approximate), Expires: 03/15/2024 [facility] Work Phone: Comment on above: Expected: 05/16/2023 (Approximate), Expires: 03/15/2024 Start: 05-16-2023 End: 03-15-2024 CT CHEST W IVCON CT CHEST W IVCON Radiology Routine Seminoma of descended right testis (HCC) Expected: 05/16/2023 (Approximate), Expires: 03/15/2024 [facility] Work Phone: Comment on above: Expected: 05/16/2023 (Approximate), Expires: 03/15/2024 Start: 05-16-2023 End: 07-16-2023 Lactate dehydrogenase [Enzymatic activity/volume] in Serum or Plasma LD LACTATE DEHYDRO Lab Routine Seminoma of descended right testis (HCC) Expected: 05/16/2023 (Approximate), Expires: 07/16/2023 [facility] Work Phone: Comment on above: Expected: 05/16/2023 (Approximate), Expires: 07/16/2023 Start: 02-15-2023 Covid-19 Vaccine ( season) Covid-19 Vaccine ( season) [facility] Start: 02-15-2023 Influenza vaccination [facility] Start: 10-07-2022 End: 12-07-2022 [id number] [Mass/volume] in Serum or Plasma ALPHA FETOPROTEIN BL Lab Routine Seminoma of descended right testis (HCC) Expected: 10/07/2022 (Approximate), Expires: 12/07/2022 [facility] Work Phone: Comment on above: Expected: 10/07/2022 (Approximate), Expires: 12/07/2022 Start: 10-07-2022 End: 12-07-2022 Basic metabolic 2000 panel - Serum or Plasma BASIC METABOLIC PNL Lab Routine Seminoma of descended right testis (HCC) Expected: 10/07/2022 (Approximate), Expires: 12/07/2022 [facility] Work Phone: Comment on above: Expected: 10/07/2022 (Approximate), Expires: 12/07/2022 Start: 10-07-2022 End: 12-07-2022 CBC W Auto Differential panel - Blood CBC + DIFF Lab Routine Seminoma of descended right testis (HCC) Expected: 10/07/2022 (Approximate), Expires: 12/07/2022 [facility] Work Phone: Comment on above: Expected: 10/07/2022 (Approximate), Expires: 12/07/2022 Start: 10-07-2022 End: 12-07-2022 Choriogonadotropin.beta subunit [Units/volume] in Serum or Plasma BETA HCG QUANT TUMOR MARKER Lab Routine Seminoma of descended right testis (HCC) Expected: 10/07/2022 (Approximate), Expires: 12/07/2022 [facility] Work Phone: Comment on above: Expected: 10/07/2022 (Approximate), Expires: 12/07/2022 Start: 10-07-2022 End: 12-07-2022 Lactate dehydrogenase [Enzymatic activity/volume] in Serum or Plasma LD LACTATE DEHYDRO Lab Routine Seminoma of descended right testis (HCC) Expected: 10/07/2022 (Approximate), Expires: 12/07/2022 [facility] Work Phone: Comment on above: Expected: 10/07/2022 (Approximate), Expires: 12/07/2022 Start: 09-26-2022 Adult depression screening assessment DEPRESSION SCREENING [facility] Start: 07-09-2022 End: 09-08-2022 Choriogonadotropin.beta subunit [Units/volume] in Serum or Plasma [facility] Work Phone: Comment on above: Expected: 07/09/2022 , Expires: 09/08/2022 Start: 06-17-2022 DEPRESSION ASSESSMENT DEPRESSION ASS ESSMENT [facility] Start: 03-28-2022 End: 05-28-2022 CBC W Auto Differential panel - Blood CBC + DIFF Lab Routine Expected: 03/28/2022 (Approximate), Expires: 05/28/2022 [facility] Work Phone: Comment on above: Expected: 03/28/2022 (Approximate), Expires: 05/28/2022 Start: 03-28-2022 End: 05-28-2022 Comprehensive metabolic 2000 panel - Serum or Plasma COMP METABOLIC PANEL Lab Routine Expected: 03/28/2022 (Approximate), Expires: 05/28/2022 [facility] Work Phone: Comment on above: Expected: 03/28/2022 (Approximate), Expires: 05/28/2022 Start: 03-28-2022 End: 05-28-2022 Lactate dehydrogenase [Enzymatic activity/volume] in Serum or Plasma LD LACTATE DEHYDRO Lab Routine Expected: 03/28/2022 (Approximate), Expires: 05/28/2022 [facility] Work Phone: Comment on above: Expected: 03/28/2022 (Approximate), Expires: 05/28/2022 Start: 02-15-2022 Influenza vaccination [facility] Start: 12-26-2021 End: 02-25-2022 CBC W Auto Differential panel - Blood CBC + DIFF Lab Routine Seminoma of descended right testis (HCC) Expected: 12/26/2021 (Approximate), Expires: 02/25/2022 [facility] Work Phone: Comment on above: Expected: 12/26/2021 (Approximate), Expires: 02/25/2022 Start: 12-26-2021 End: 02-25-2022 Comprehensive metabolic 2000 panel - Serum or Plasma COMP METABOLIC PANEL Lab Routine Seminoma of descended right testis (HCC) Expected: 12/26/2021 (Approximate), Expires: 02/25/2022 [facility] Work Phone: Comment on above: Expected: 12/26/2021 (Approximate), Expires: 02/25/2022 Start: 12-26-2021 End: 02-25-2022 Lactate dehydrogenase [Enzymatic activity/volume] in Serum or Plasma LD LACTATE DEHYDRO Lab Routine Seminoma of descended right testis (HCC) Expected: 12/26/2021 (Approximate), Expires: 02/25/2022 [facility] Work Phone: Comment on above: Expected: 12/26/2021 (Approximate), Expires: 02/25/2022 Start: 06-17-2021 DEPRESSION ASSESSMENT DEPRESSION ASS ESSMENT [facility] Start: 2019 COLOGUARD (FIT-DNA) COLOGUARD (FIT-D NA) [facility] Start: 2019 Colonoscopy COLONOSCOPY [facility] Start: 2019 COLORECTAL CANCER SCREENING COLORECTAL CANCER SCREENING [facility] Start: [address] COLONOGRAPHY [facility] Start: 2019 FECAL OCCULT BLOOD FECAL OCCULT BLOO D [facility] Start: 2019 Screening for malign ant neoplasm of colon [facility] Start: 2019 [facility] Start: 2009 Lipid 1996 panel - S deepika or Plasma Lipid Screening [facility] Start: 2009 Lipid panel [facility] Start: 2009 LIPID SCREEN LIPID SCREEN [facility] Start: 04-26-2000 Urine microalbumin profile DTaP,Tdap,Td Vaccine (1 - Tdap) [facility] Start: 1993 Hepatitis B Vaccine (1 of 3 - 19+ 3-dose series) Hepatitis B Vaccine (1 of 3 - 19+ 3-dose series) [facility] Start: 1993 Urine microalbumin profile DTAP,TDAP,TD (1 - Tdap) [facility] Start: 1992 Anxiety Screening Anxiety Screening [facility] Start: 1992 Depression Screening Depression Scre [facility] Start: 1992 HEPATITIS C SCREENING HEPATITIS C [facility] Start: 1992 Hepatitis C screening Hepatitis C [facility] Start: 1992 HIV SCREENING HIV SCREENING [facility] Start: 1992 HIV screening HIV Screening [facility] Start: 1979 COVID-19 VACCINE (1) COVID-19 VACCIN E (1) [facility] Start: 1974 COVID-19 VACCINE (#1) COVID-19 VACCI NE (#1) [facility] Start: 1974 HEPATITIS B (1 of 3 - 3-dose series) HEPATITIS B (1 of 3 - 3-dose series) [facility] Start: 1974 Hepatitis B Vaccine (1 of 3 - 3-dose series) Hepatitis B Vaccine (1 of 3 - 3-dose series) [facility] Start: 1974 Screening for malign ant neoplasm of colon [facility] End: 01-25-2023 Ct abdomen & pelvis w/contrast material CT ABD/PEL W IVCON Radiology Routine 1 Occurrences starting 12/26/2021 until 01/25/2023 [facility] Work Phone: Comment on above: 1 Occurrences starti ng 12/26/2021 until 01/25/2023 End: 08-08-2023 Ct abdomen & pelvis w/contrast material CT ABD/PEL W IVCON Radiology Routine 1 Occurrences starting 07/09/2022 until 08/08/2023 [facility] Work Phone: Comment on above: 1 Occurrences starti ng 07/09/2022 until 08/08/2023 End: 08-08-2023 CT CHEST W IVCON CT CHEST W IVCON Radiology Routine 1 Occurrences starting 07/09/2022 until 08/08/2023 [facility] Work Phone: Comment on above: 1 Occurrences starti ng 07/09/2022 until 08/08/2023 End: 01-25-2023 Ct thorax w/contrast material CT CHEST W IVCON Radiology Routine 1 Occurrences starting 12/26/2021 until 01/25/2023 [facility] Work Phone: Comment on above: 1 Occurrences starti ng 12/26/2021 until 01/25/2023 End: 06-21-[address] attenuation skull base mid-thigh NM PET/CT SKULL-THIGH INITIAL Radiology Routine 1 Occurrences starting 05/23/2023 until 06/21/2024 [facility] Work Phone: Comment on above: 1 Occurrences starti ng 05/23/2023 until 06/21/2024 [facility] Immunizations Immunization Date Immunization Notes Care [facility] TD(adult) unspecifie d formulation; Translations: [Td(adult) unspecified formulation] Wander Joseph LPN Work Phone: [facility] Payers Date Payer Category Payer Self-pay [id number] 2023 Unknown [id number] 2019 [facility] er [id number] 2019 Unknown [employer] PPO OOS [id number] 2019-Present [phone] [id number] [place] [address] PPO [id number] 2019 Unknown [id number] 2019 Unknown [id number] 1974 Unknown [id number] 1974 Unknown [id number] 1974 Unknown [id number] 1974 Unknown [id number] 1974 Unknown [id number] 1974 Unknown [id number] 1974 Unknown [id number] 1959 Unknown [id number] Unknown [id number] Social History Date Type Detail Facility Start: 08-23-2021 End: 03-05-2023 Tobacco smoking status NHIS Never smoked tobacco [facility] Start: 08-23-2021 End: 03-05-2023 Tobacco use and exposure Smokeless tobacco non-user [facility] Start: 09-26-2021 End: 03-06-2024 Alcohol intake Ex-drinker (finding) [facility] Start: 1975 Sex Assigned At Not on file [facility] Start: 09-09-2021 End: 04-09-2022 Exposure to SARS-CoV-2 (event) Not sure [facility] Start: 11-05-2022 End: 03-05-2023 Sex Assigned At Male [facility] Erik Rea Other Start: 1975 Sex Assigned At Male [facility] Start: 11-05-2022 End: 03-05-2023 History of Social function [facility] Adult Depression Screening Assessment 0 [facility] How often to you hav e a drink containing alcohol? Never [facility] Functional Status Date Assessment Result Facility 03-23-2024 Functional Status N/A [facility] 11-27-2021 Functional Status N/A [facility] Clinical Notes 03-21-2021 to 05-06-2024 Janee Quezada RN - 05/06/2024 12:15 PM Edin Gannon RT(R) - 05/06/2024 12:15 PM ESTTelephone Encounter - Wander Joseph LPN - 03/23/2024 10:30 AM EDT Note Date & Type Note Facility 05-06-2024 History of Presen t illness Narrative Radiology Service Progress Note DATE OF SERVICE: May 06, 2024 TIME: 12:28 PM PATIENT WEIGHT: 353LBS PATIENT IDENTITY VERIFICATION COMPLETED USING TWO (2) STANDARD IDENTIFIERS: Name and Date of confirmed by patient verbally. FALL SCREENING: Has the patient had 2 falls in the last year or 1 fall with injury or currently using an Ambulatory Assistive Device (Walker, Cane, Wheelchair, Crutches, etc.)? No PATIENT GENDER DATA: Male ALLERGIES: Reviewed and unchanged CONTRAST ALLERGY: No EXAM: CT -CONTRAST INDUCED NEPHROPATHY RISK FACTORS: Not applicable CREATININE: Creatinine Date Value Ref Range Status 02/06/2024 1.07 0.73 - 1.22 mg/dL Final 05/17/2023 0.95 0.73 - 1.22 mg/dL Final 02/14/2023 1.01 0.73 - 1.22 mg/dL Final Estimated Glomerular Filtration Rate Date Value Ref Range Status 02/06/2024 85 >=60 mL/min/1.73m Final Comment: Estimated Glomerular Filtration Rate (eGFR) is calculated using the 2020 CKD-EPI creatinine equation. This equation utilizes serum creatinine, sex, and age as parameters. The creatinine assay has traceable calibration to isotope dilution-mass spectrometry. Refer to KDIGO guidelines for clinical interpretation. In patients with unstable renal function, e.g. those with acute kidney injury, the eGFR may not accurately reflect actual GFR. P.O.C.T. RESULTS: POC done: Yes, See Lab Tab May 06, 2024 TREATMENT: N/A and No Hydration needed. IV SITE: Ambulatory: A peripheral IV was started in the Right hand with a Angio cath: 20 gauge. IV SITE APPEARANCE: Clean,Dry and Intact SIGNATURE: Janee Quezada RN PATIENT NAME: Jordan Bennett DATE: May 06, 2024 TIME: 12:28 PM Radiology Service Progress Note PATIENT NAME: Jordan Bennett DATE OF SERVICE: May 06, 2024 TIME: 12:36 PM PATIENT IDENTITY VERIFICATION COMPLETED USING TWO (2) IDENTIFIERS: Name and Date of confirmed by patient verbally. FALL SCREENING: Has the patient had 2 falls in the last year or 1 fall with injury or currently using an Ambulatory Assistive Device (Walker, Cane, Wheelchair, Crutches, etc.)? No PATIENT GENDER DATA: Male PATIENT RELEVANT IMPLANT DATA REVIEWED: Not Applicable PATIENT PRESENTS WITH AN IMPLANTABLE OR ATTACHED POST PRODUCTION ASSISTANT: No RADIOLOGY DEPARTMENT: CT; Exam(s) Completed: Chest Abdomen Pelvis PERIPHERAL IV DATA: Site assessment: Clean,Dry and Intact, Site disposition Discontinued SIGNED BY: RT Sebastian(Christiane) May 06, 2024 12:36 PM documented in this encounter [facility] 05-06-2024 Note HNO ID: [id number] Author: EDIN PASTRANA RT(R) Service: ? Author Type: Technologist Type: Progress Notes Filed: 05/06/2024 12:36 Note Text: Radiology Service Progress Note PATIENT NAME: Jordan Bennett DATE OF SERVICE: May 06, 2024 TIME: 12:36 PM PATIENT IDENTITY VERIFICATION COMPLETED USING TWO (2) IDENTIFIERS: Name and Date of confirmed by patient verbally. FALL SCREENING: Has the patient had 2 falls in the last year or 1 fall with injury or currently using an Ambulatory Assistive Device (Walker, Cane, Wheelchair, Crutches, etc.)? No PATIENT GENDER DATA: Male PATIENT RELEVANT IMPLANT DATA REVIEWED: Not Applicable PATIENT PRESENTS WITH AN IMPLANTABLE OR ATTACHED POST PRODUCTION ASSISTANT: No RADIOLOGY DEPARTMENT: CT; Exam(s) Completed: Chest Abdomen Pelvis PERIPHERAL IV DATA: Site assessment: Clean,Dry and Intact, Site disposition Discontinued SIGNED BY: RT Sebastian(R) May 06, 2024 12:36 PM [facility] 05-06-2024 Note HNO ID: [id number] Author: JANEE QUEZADA RN Service: ? Author Type: Registered Nurse Type: Progress Notes Filed: 05/06/2024 12:29 Note Text: Radiology Service Progress Note DATE OF SERVICE: May 06, 2024 TIME: 12:28 PM PATIENT WEIGHT: 353LBS PATIENT IDENTITY VERIFICATION COMPLETED USING TWO (2) STANDARD IDENTIFIERS: Name and Date of confirmed by patient verbally. FALL SCREENING: Has the patient had 2 falls in the last year or 1 fall with injury or currently using an Ambulatory Assistive Device (Walker, Cane, Wheelchair, Crutches, etc.)? No PATIENT GENDER DATA: Male ALLERGIES: Reviewed and unchanged CONTRAST ALLERGY: No EXAM: CT -CONTRAST INDUCED NEPHROPATHY RISK FACTORS: Not applicable CREATININE: Creatinine Date Value Ref Range Status 02/06/2024 1.07 0.73 - 1.22 mg/dL Final 05/17/2023 0.95 0.73 - 1.22 mg/dL Final 02/14/2023 1.01 0.73 - 1.22 mg/dL Final Estimated Glomerular Filtration Rate Date Value Ref Range Status 02/06/2024 85 >=60 mL/min/1.73m? Final Comment: Estimated Glomerular Filtration Rate (eGFR) is calculated using the 2020 CKD-EPI creatinine equation. This equation utilizes serum creatinine, sex, and age as parameters. The creatinine assay has traceable calibration to isotope dilution-mass spectrometry. Refer to KDIGO guidelines for clinical interpretation. In patients with unstable renal function, e.g. those with acute kidney injury, the eGFR may not accurately reflect actual GFR. P.O.C.T. RESULTS: POC done: Yes, See Lab Tab May 06, 2024 TREATMENT: N/A and No Hydration needed. IV SITE: Ambulatory: A peripheral IV was started in the Right hand with a Angio cath: 20 gauge. IV SITE APPEARANCE: Clean,Dry and Intact SIGNATURE: Janee Quezada RN PATIENT NAME: Jordan Bennett DATE: May 06, 2024 TIME: 12:28 PM [facility] 03-23-2024 Hospital Discharg e instructions Patient Education 03/23/2024 10:55:43 Testicular Self-Exam Testicular Self-Exam A self-examination of your testicles (testicular self-exam) involves looking at and feeling your testicles for abnormal lumps or swelling. Several things can cause swelling, lumps, or pain in your testicles, including: Injuries. Inflammation. Infection. Buildup of fluids around the testicle (hydrocele). Twisted testicles (testicular torsion). Testicular cancer. You may be at risk for this if you have: ?A testicle that has not descended. ?Previously had testicular cancer. ?A family history of testicular cancer. General tips It is easiest to do a self-exam during or after a warm bath or shower. Testicles are harder to examine when you are cold because the muscles attached to the testicles retract and pull them up higher or into the abdomen. A normal testicle is egg-shaped and feels firm. It is smooth and not tender. It is normal to feel a firm, spaghetti-like cord at the back of your testicle. This is the spermatic cord. Do a self-exam once a month. How to do a testicular self-exam 1.Stand and hold your penis away from your body. 2.Look at each testicle to check for changes in appearance, such as swelling or changes in size or shape. 3.Roll each testicle between your thumb and forefinger, feeling the entire testicle. Feel for: Lumps. Swelling. Discomfort. 4.Check for swelling or tender bumps in the groin area. Your groin is where your lower belly (abdomen) meets your upper thighs. Contact a health care provider if: You find a bump or lump. This may be a small, hard bump that is the size of a pea. You have swelling, pain, or soreness in your testicle area. You see or feel any other changes in your testicles. This information is not intended to replace advice given to you by your health care provider. Make sure you discuss any questions you have with your health care provider. Document Revised: 03/18/2023 Document Reviewed: 03/18/2023 [employer] Patient Education 2023 [employer]. 03/23/2024 10:55:39 Prostate Cancer Screening Prostate Cancer Screening Prostate cancer screening is testing that is done to check for the presence of prostate cancer in men. The prostate gland is a walnut-sized gland that is located below the bladder and in front of the rectum in males. The function of the prostate is to add fluid to semen during ejaculation. Prostate cancer is one of the most common types of cancer in men. Who should have prostate cancer screening? Screening recommendations vary based on age and other risk factors, as well as between the professional organizations who make the recommendations. In general, screening is recommended if: You are age 50 to 70 and have an average risk for prostate cancer. You should talk with your health care provider about your need for screening and how often screening should be done. Because most prostate cancers are slow growing and will not cause , screening in this age group is generally reserved for men who have a 10- to 15-year life expectancy. You are younger than age 50, and you have these risk factors: ?Having a father, brother, or uncle who has been diagnosed with prostate cancer. The risk is higher if your family member's cancer occurred at an early age or if you have multiple family members with prostate cancer at an early age. ?Being a male who is Black or is of Alfred or sub-Saharan descent. In general, screening is not recommended if: You are younger than age 40. You are between the ages of 40 and 49 and you have no risk factors. You are 70 years of age or older. At this age, the risks that screening can cause are greater than the benefits that it may provide. If you are at high risk for prostate cancer, your health care provider may recommend that you have screenings more often or that you start screening at a younger age. How is screening for prostate cancer done? The recommended prostate cancer screening test is a blood test called the prostate-specific antigen (PSA) test. PSA is a protein that is made in the prostate. As you age, your prostate naturally produces more PSA. Abnormally high PSA levels may be caused by: Prostate cancer. An enlarged prostate that is not caused by cancer (benign prostatic hyperplasia, or BPH). This condition is very common in older men. A prostate gland infection (prostatitis) or urinary tract infection. Certain medicines such as male hormones (like testosterone) or other medicines that raise testosterone levels. A rectal exam may be done as part of prostate cancer screening to help provide information about the size of your prostate gland. When a rectal exam is performed, it should be done after the PSA level is drawn to avoid any effect on the results. Depending on the PSA results, you may need more tests, such as: A physical exam to check the size of your prostate gland, if not done as part of screening. Blood and imaging tests. A procedure to remove tissue samples from your prostate gland for testing (biopsy). This is the only way to know for certain if you have prostate cancer. What are the benefits of prostate cancer screening? Screening can help to identify cancer at an early stage, before symptoms start and when the cancer can be treated more easily. There is a small chance that screening may lower your risk of dying from prostate cancer. The chance is small because prostate cancer is a slow-growing cancer, and most men with prostate cancer from a different cause. What are the risks of prostate cancer screening? The main risk of prostate cancer screening is diagnosing and treating prostate cancer that would never have caused any symptoms or problems. This is called overdiagnosisand overtreatment. PSA screening cannot tell you if your PSA is high due to cancer or a different cause. A prostate biopsy is the only procedure to diagnose prostate cancer. Even the results of a biopsy may not tell you if your cancer needs to be treated. Slow-growing prostate cancer may not need any treatment other than monitoring, so diagnosing and treating it may cause unnecessary stress or other side effects. Questions to ask your health care provider When should I start prostate cancer screening? What is my risk for prostate cancer? How often do I need screening? What type of screening tests do I need? How do I get my test results? What do my results mean? Do I need treatment? Where to find more information The [employer]: www.cancer.org [employer]: www.auanet.org Contact a health care provider if: You have difficulty urinating. You have pain when you urinate or ejaculate. You have blood in your urine or semen. You have pain in your back or in the area of your prostate. Summary Prostate cancer is a common type of cancer in men. The prostate gland is located below the bladder and in front of the rectum. This gland adds fluid to semen during ejaculation. Prostate cancer screening may identify cancer at an early stage, when the cancer can be treated more easily and is less likely to have spread to other areas of the body. The prostate-specific antigen (PSA) test is the recommended screening test for prostate cancer, but it has associated risks. Discuss the risks and benefits of prostate cancer screening with your health care provider. If you are age 70 or older, the risks that screening can cause are greater than the benefits that it may provide. This information is not intended to replace advice given to you by your health care provider. Make sure you discuss any questions you have with your health care provider. Document Revised: 11/27/2021 Document Reviewed: 11/27/2021 [employer] Patient Education 2023 [employer]. Follow [facility] 02/10/2024 11:24:24 With:DEBBIE DELUCA, Chantal Grande, URL Address: [facility] [address] , [place] [address] [phone] When: Unknown Comments:10 mos (getting PSA done soon) [facility] 03-23-2024 Note Patient Education Oncology Prostate Cancer Screening Prostate cancer screening is testing that is done to check for the presence of prostate cancer in men. The prostate gland is a walnut-sized gland that is located below the bladder and in front of the rectum in males. The function of the prostate is to add fluid to semen during ejaculation. Prostate cancer is one of the most common types of cancer in men. Who should have prostate cancer screening? Screening recommendations vary based on age and other risk factors, as well as between the professional organizations who make the recommendations. In general, screening is recommended if: ? You are age 50 to 70 and have an average risk for prostate cancer. You should talk with your health care provider about your need for screening and how often screening should be done. Because most prostate cancers are slow growing and will not cause , screening in this age group is generally reserved for men who have a 10- to 15-year life expectancy. ? You are younger than age 50, and you have these risk factors: ? Having a father, brother, or uncle who has been diagnosed with prostate cancer. The risk is higher if your family member's cancer occurred at an early age or if you have multiple family members with prostate cancer at an early age. ? Being a male who is Black or is of Alfred or sub-Saharan descent. In general, screening is not recommended if: ? You are younger than age 40. ? You are between the ages of 40 and 49 and you have no risk factors. ? You are 70 years of age or older. At this age, the risks that screening can cause are greater than the benefits that it may provide. If you are at high risk for prostate cancer, your health care provider may recommend that you have screenings more often or that you start screening at a younger age. How is screening for prostate cancer done? The recommended prostate cancer screening test is a blood test called the prostate-specific antigen (PSA) test. PSA is a protein that is made in the prostate. As you age, your prostate naturally produces more PSA. Abnormally high PSA levels may be caused by: ? Prostate cancer. ? An enlarged prostate that is not caused by cancer (benign prostatic hyperplasia, or BPH). This condition is very common in older men. ? A prostate gland infection (prostatitis) or urinary tract infection. ? Certain medicines such as male hormones (like testosterone) or other medicines that raise testosterone levels. A rectal exam may be done as part of prostate cancer screening to help provide information about the size of your prostate gland. When a rectal exam is performed, it should be done after the PSA level is drawn to avoid any effect on the results. Depending on the PSA results, you may need more tests, such as: ? A physical exam to check the size of your prostate gland, if not done as part of screening. ? Blood and imaging tests. ? A procedure to remove tissue samples from your prostate gland for testing (biopsy). This is the only way to know for certain if you have prostate cancer. What are the benefits of prostate cancer screening? ? Screening can help to identify cancer at an early stage, before symptoms start and when the cancer can be treated more easily. ? There is a small chance that screening may lower your risk of dying from prostate cancer. The chance is small because prostate cancer is a slow-growing cancer, and most men with prostate cancer from a different cause. What are the risks of prostate cancer screening? The main risk of prostate cancer screening is diagnosing and treating prostate cancer that would never have caused any symptoms or problems. This is called overdiagnosisand overtreatment. PSA screening cannot tell you if your PSA is high due to cancer or a different cause. A prostate biopsy is the only procedure to diagnose prostate cancer. Even the results of a biopsy may not tell you if your cancer needs to be treated. Slow-growing prostate cancer may not need any treatment other than monitoring, so diagnosing and treating it may cause unnecessary stress or other side effects. Questions to ask your health care provider ? When should I start prostate cancer screening? ? What is my risk for prostate cancer? ? How often do I need screening? ? What type of screening tests do I need? ? How do I get my test results? ? What do my results mean? ? Do I need treatment? Where to find more information ? The [place] [employer]: www.cancer.org ? [employer]: www.auanet.org Contact a health care provider if: ? You have difficulty urinating. ? You have pain when you urinate or ejaculate. ? You have blood in your urine or semen. ? You have pain in your back or in the area of your prostate. Summary ? Prostate cancer is a common type of cancer in men. The prostate gland is located below the bladder and in front of the rectum. (more content not included)... [facility] 03-23-2024 Telephone encounter Note lm for refill of trazodone [facility] [place] [facility] 03-23-2024 Miscellaneous Notes lm for refill of trazodone [facility] [place] documented in this encounter [facility] 02-05-2024 Note HNO ID: [id number] Author: JORDAN PETERS MD Service: ? Author Type: Physician Type: [place] Notes Filed: 02/07/2024 07:25 Note Text: PATIENT NAME: Jordan Bennett DATE: 02/06/2024 PRIMARY CARE PHYSICIAN: Ashli Ni DO OTHER PHYSICIANS: Dr. Lewis, Dr. Jasso Portions of this encounter note have been copied from the note from 06/27/2023 and has been updated where appropriate, and reflect my current medical decision making from today. CC: This is a 48 year old male with metastatic seminoma of the right testicle, seen for scheduled follow-up. INTERIM HISTORY: Since the patient's last visit here he completed radiation therapy as primary treatment for his metastatic seminoma. He tolerated treatment well. Subsequent PET scan consistent with complete response. On follow-up today he has no complaints. No abdominal pain or other GI symptoms. Energy and appetite remain excellent. MEDICATIONS: Current Outpatient Medications Medication Sig NABUMETONE ORAL Take 500 mg by mouth two times a day. aspirin 81 mg cap Take 81 mg by mouth once daily. ondansetron (ZOFRAN) 8 mg tablet Take 1 tablet by mouth every 8 hours as needed for nausea/vomiting. (Patient not taking: Reported on 10/22/2023) lisinopril-hydroCHLOROthiazide (ZESTORETIC) 20-12.5 mg per tablet Take 2 tablets by mouth every afternoon. traZODone (DESYREL) 50 mg tablet Take 50 mg by mouth at bedtime as needed. (Patient not taking: Reported on 10/22/2023) Omeprazole 20 mg TbEC Take by mouth. multivit-min/ferrous fumarate (MULTI VITAMIN ORAL) Refill(s) 0 Zinc 50 mg tab Take by mouth. (Patient not taking: Reported on 10/22/2023) No current facility-administered medications for this visit. ALLERGIES: ALLERGIES Allergen Reactions Penicillins Rash Shellfish Containin* Other: See Comments PAST MEDICAL HISTORY: PAST MEDICAL HISTORY No date: BPH (benign prostatic hyperplasia) No date: Epididymal mass No date: Hematuria No date: Primary hypertension No date: Testicular cancer (HCC) PAST SURGICAL HISTORY: PAST SURGICAL HISTORY No date: CYSTOSCOPY 08/03/2021: PAST SURGICAL HISTORY OF; Right FAMILY HISTORY: FAMILY HISTORY Problem Relation Age of Onset Brain Cancer Father Cancer Paternal Grandfather SOCIAL HISTORY: Social History Tobacco Use Smoking status: Never Smokeless tobacco: Never Vaping Use Vaping status: Never Used Substance Use Topics Alcohol use: Not Currently Drug use: Never COMPLETE REVIEW OF SYSTEMS: CONSTITUTION: Negative for pain, fatigue, weight loss, or appetite loss. EENT: Negative for mouth soreness, antibiotics use, epistaxis, visual problems, neck or facial swelling, fever/chills, bleeding gums, or hearing loss. CV: Negative for edema, calf swelling, palpitations, or chest pain. RESPIRATORY: Negative for cough, SOB, hemoptysis, or wheezing. GI: Negative for nausea/vomiting, heartburn, vomiting blood, dysphasia, diarrhea, blood in stool, constipation, early satiety, PICA, vegetarian, poor nutrition, abdominal fullness, or abdominal pain. NEUROLOGICAL: Negative for numbness/tingling, dizziness, gait disturbance, headache, speech disturbance, tremor, hemiparesis/sensory loss, or change in mental status. MUSCULOSKELETAL: Negative for joint pain, joint swelling, or proximal muscle weakness. SKIN: Negative for hair loss, bruising, nail changes, rash, itching, pallor, or jaundice. ENDO/URO: Negative for hot flashes, cold or heat intolerance, urinary frequency, urinary hesitancy, menorrhagia, or hematuria. PSYCH: Negative for anxiety, depression, or other. PHYSICAL EXAM: BP 154/91 Pulse 75 Temp 36.6 ?C (97.8 ?F) (Temporal) Resp 18 Wt (!) 158.6 kg (349 lb 10.4 oz) SpO2 100% BMI 48.79 kg/m? General: Alert and oriented, no distress, pleasant and cooperative. Heart: Regular, normal S1 and S2, no murmurs, rubs, or gallops Lungs: Clear to auscultation bilaterally Abdomen: Benign Extremities: Feet/ankles without edema, posterior tibial pulses full and symmetrical PATHOLOGY: 08/03/2021 Radical right orchiectomy ([facility]) Classic seminoma testicle: 3.2 x 3.0 x 2.5 cm. Intratubular seminoma. The tumor focally invades epididymis and hilar soft tissue. Angiolymphatic invasion is present. The spermatic cord resection margin is free of neoplasm. LABORATORY DATA: Hemoglobin (g/dL) Date Value 02/06/2024 13.9 Hematocrit (%) Date Value 02/06/2024 38.4 WBC (k/uL) Date Value 02/06/2024 7.43 Platelet Count (k/uL) Date Value 02/06/2024 229 RADIOLOGY/OTHER STUDIES: 10/15/2023 PET scan IMPRESSION: HEAD/NECK: * No FDG avid neoplastic process. CHEST: * No FDG avid neoplastic process. ABDOMEN/PELVIS: * No FDG avid neoplastic process. * Resolution of previously noted hypermetabolic aortocaval nodes status post radiation therapy. MUSCULOSKELETAL: * No FDG avid osseous lesion. * Cutaneous/subcutaneous hyperme (more content not included)... [facility] 02-05-2024 History of Presen t illness Narrative PATIENT NAME: Jordan Bennett DATE: 02/06/2024 PRIMARY CARE PHYSICIAN: Ashli Ni DO OTHER PHYSICIANS: Dr. Lewis, Dr. Jasso Portions of this encounter note have been copied from the note from 06/27/2023 and has been updated where appropriate, and reflect my current medical decision making from today. CC: This is a 48 year old male with metastatic seminoma of the right testicle, seen for scheduled follow-up. INTERIM HISTORY: Since the patient's last visit here he completed radiation therapy as primary treatment for his metastatic seminoma. He tolerated treatment well. Subsequent PET scan consistent with complete response. On follow-up today he has no complaints. No abdominal pain or other GI symptoms. Energy and appetite remain excellent. MEDICATIONS: Current Outpatient Medications Medication Sig NABUMETONE ORAL Take 500 mg by mouth two times a day. aspirin 81 mg cap Take 81 mg by mouth once daily. ondansetron (ZOFRAN) 8 mg tablet Take 1 tablet by mouth every 8 hours as needed for nausea/vomiting. (Patient not taking: Reported on 10/22/2023) lisinopril-hydroCHLOROthiazide (ZESTORETIC) 20-12.5 mg per tablet Take 2 tablets by mouth every afternoon. traZODone (DESYREL) 50 mg tablet Take 50 mg by mouth at bedtime as needed. (Patient not taking: Reported on 10/22/2023) Omeprazole 20 mg TbEC Take by mouth. multivit-min/ferrous fumarate (MULTI VITAMIN ORAL) Refill(s) 0 Zinc 50 mg tab Take by mouth. (Patient not taking: Reported on 10/22/2023) No current facility-administered medications for this visit. ALLERGIES: ALLERGIES Allergen Reactions Penicillins Rash Shellfish Containin* Other: See Comments PAST MEDICAL HISTORY: PAST MEDICAL HISTORY No date: BPH (benign prostatic hyperplasia) No date: Epididymal mass No date: Hematuria No date: Primary hypertension No date: Testicular cancer (HCC) PAST SURGICAL HISTORY: PAST SURGICAL HISTORY No date: CYSTOSCOPY 08/03/2021: PAST SURGICAL HISTORY OF; Right FAMILY HISTORY: FAMILY HISTORY Problem Relation Age of Onset Brain Cancer Father Cancer Paternal Grandfather SOCIAL HISTORY: Social History Tobacco Use Smoking status: Never Smokeless tobacco: Never Vaping Use Vaping status: Never Used Substance Use Topics Alcohol use: Not Currently Drug use: Never COMPLETE REVIEW OF SYSTEMS: CONSTITUTION: Negative for pain, fatigue, weight loss, or appetite loss. EENT: Negative for mouth soreness, antibiotics use, epistaxis, visual problems, neck or facial swelling, fever/chills, bleeding gums, or hearing loss. CV: Negative for edema, calf swelling, palpitations, or chest pain. RESPIRATORY: Negative for cough, SOB, hemoptysis, or wheezing. GI: Negative for nausea/vomiting, heartburn, vomiting blood, dysphasia, diarrhea, blood in stool, constipation, early satiety, PICA, vegetarian, poor nutrition, abdominal fullness, or abdominal pain. NEUROLOGICAL: Negative for numbness/tingling, dizziness, gait disturbance, headache, speech disturbance, tremor, hemiparesis/sensory loss, or change in mental status. MUSCULOSKELETAL: Negative for joint pain, joint swelling, or proximal muscle weakness. SKIN: Negative for hair loss, bruising, nail changes, rash, itching, pallor, or jaundice. ENDO/URO: Negative for hot flashes, cold or heat intolerance, urinary frequency, urinary hesitancy, menorrhagia, or hematuria. PSYCH: Negative for anxiety, depression, or other. PHYSICAL EXAM: BP 154/91 Pulse 75 Temp 36.6 C (97.8 F) (Temporal) Resp 18 Wt (!) 158.6 kg (349 lb 10.4 oz) SpO2 100% BMI 48.79 kg/m General: Alert and oriented, no distress, pleasant and cooperative. Heart: Regular, normal S1 and S2, no murmurs, rubs, or gallops Lungs: Clear to auscultation bilaterally Abdomen: Benign Extremities: Feet/ankles without edema, posterior tibial pulses full and symmetrical PATHOLOGY: 08/03/2021 Radical right orchiectomy ([facility]) Classic seminoma testicle: 3.2 x 3.0 x 2.5 cm. Intratubular seminoma. The tumor focally invades epididymis and hilar soft tissue. Angiolymphatic invasion is present. The spermatic cord resection margin is free of neoplasm. LABORATORY DATA: Hemoglobin (g/dL) Date Value 02/06/2024 13.9 Hematocrit (%) Date Value 02/06/2024 38.4 WBC (k/uL) Date Value 02/06/2024 7.43 Platelet Count (k/uL) Date Value 02/06/2024 229 RADIOLOGY/OTHER STUDIES: 10/15/2023 PET scan IMPRESSION: HEAD/NECK: * No FDG avid neoplastic process. CHEST: * No FDG avid neoplastic process. ABDOMEN/PELVIS: * No FDG avid neoplastic process. * Resolution of previously noted hypermetabolic aortocaval nodes status post radiation therapy. MUSCULOSKELETAL: * No FDG avid osseous lesion. * Cutaneous/subcutaneous hypermetabolic foci in the perineal and upper thigh regions have nearly completely resolved. A persistent area of hypermetabolic cutaneous thickening is noted in the posteromedial left thigh, likely inflammatory. This area would likely be amenable to evaluation on physical exam 06/07/2023 PET scan IMPRESSION: 1. Neck: No suspicious hypermetabolic foci 2. Chest: No evidence of FDG avid neoplastic process 3. Abdomen and pelvis: Hypermetabolic aortocaval lymph node suspicious for metastases. Hypermetabolic foci of subcutaneous thickening in the gluteal/inguinal regions possibly inflammatory. 4. Skeleton: No hypermetabolic osseous lesions 05/17/2023 CT chest IMPRESSION: 1. Stable CT of the chest. Patchy groundglass opacities in both lower lobes, likely infectious/inflammatory in nature. No new lobar consolidation or pleural effusion. 2. Stable right upper lobe 3 mm nodule. No new or enlarging nodules are seen. 3. Right paratracheal node measuring 1.2 cm in short axis. No bulky intrathoracic adenopathy is visualized. 05/17/2023 CT abdomen/pelvis IMPRESSION: 1. Interval increase in size of aortocaval node, now measuring up to 1.3 cm. Other previously described lymph nodes appear unchanged. No new abdominal or pelvic adenopathy is visualized. 2. No additional findings of abdominal or pelvic metastatic disease. 3. Mild hepatic steatosis. 10/31/2022 CT chest IMPRESSION: 1. Interval resolution of groundglass opacities in the right upper lobe, however there has been interval development of new patchy groundglass opacities in both lower lobes. Findings are likely infectious/inflammatory in nature. No evidence of lobar consolidation or pleural effusion. 2. Stable right upper lobe 3 mm nodule. No new or enlarging nodules are visualized. 3. Stable right paratracheal node measuring 1.2 cm in short axis. No new bulky intrathoracic adenopathy is visualized. 10/31/2022 CT abdomen/pelvis IMPRESSION: 1. Slight interval increase in size of aortocaval nodes, nonspecific. Findings may be reactive in nature. Recommend attention to this area on follow-up exams. 2. Stable left external iliac adenopathy. 3. Otherwise, no findings of abdominal or pelvic metastatic disease. 4. Mild hepatic steatosis. 04/03/2022 CT chest IMPRESSION: 1. New mild groundglass opacities in the right upper lobe most likely infectious/inflammatory in etiology. Consider follow-up to complete resolution. 2. Punctate nodular opacity in the right upper lobe, stable and may also be evaluated at follow-up. 3. Nonspecific mild mediastinal lymphadenopathy, stable. 04/03/2022 CT abdomen/pelvis IMPRESSION: 1. No evidence of intra-abdominal/pelvic metastases. No interval change since 09/19/21. 2. Nonspecific borderline left pelvic lymphadenopathy, stable. 3. Diffuse hepatic fatty infiltration. 4. Mild nodular thickening of the left adrenal gland, stable. 09/19/2021 CT chest IMPRESSION: No evidence of intrathoracic metastatic disease. 09/19/2021 CT abdomen/pelvis IMPRESSION: 1. No evidence of abdominal or pelvic metastatic disease. 2. Findings suggestive of mild hepatic steatosis. 3. Stable nodularity in the left adrenal gland, likely representing a small adenoma. 08/17/2021 Chest CTA ([facility]) No evidence of acute or chronic pulmonary embolism. Infectious or inflammatory small airways disease with multifocal tree-in-bud opacities and small areas of nodularity, right greater than left. 06/14/2021 CT abdomen/pelvis ([facility]) No acute abdominal pelvic process. Hepatomegaly and hepatic steatosis. 06/14/2021 Scrotal ultrasound ([facility]) Lesion within the right testicle measuring 2.3 x 3.1 x 1.7 cm concerning for malignancy. ASSESSMENT/PLAN: 1. Metastatic seminoma of right testis (HCC) - ICD9: 186.9, ICD10: C62.11 (primary diagnosis) Stage IB (pT2, N0, M0) classic seminoma of the right testicle diagnosed July 2021. Status post radical right orchiectomy 08/03/2021. Staging indicated a predicted 15 to 20% risk of recurrence. Postop management options were discussed (adjuvant chemotherapy, adjuvant radiation therapy, active surveillance) and it was elected to proceed with active surveillance per NCCN guidelines. Staging CT scans October 2022 revealed slight increased size of aortocaval lymph nodes. Follow-up CT abdomen/pelvis 05/17/2023 revealed further increased size of an aortocaval lymph node to 1.3 cm. PET scan 06/07/2023 revealed significant FDG uptake in the area consistent with metastases. The patient was diagnosed with clinical stage IIa disease. After documentation of recurrent disease it was elected to proceed with first-line treatment consisting of radiation therapy. Per Dr. Jasso he received radiation to the periaortic and right pelvic lymph nodes 07/15/2023 through 08/02/2023. Follow-up PET scan is 10/15/2023 consistent with complete response. Currently the patient is clinically stable and asymptomatic. At this time we will continue routine observation. Labs and restaging CT scans 05/06/2024. The patient will then return for follow-up. 2. Essential hypertension - ICD9: 401.9, ICD10: I10 Stable on current medications, continue per PCP. Jordan Peters MD CC: Dr. Lewis documented in this encounter [facility] 10-29-2023 Telephone encounter Note Patient is called and scheduled for appointments spoke with his . [facility] 10-29-2023 Miscellaneous Notes Patient is called and scheduled for appointments spoke with his . PSS and Michelle: Please schedule as indicated per Dr. Urbina. BRM/NEO: Lab orders and CT orders pending your approval. Thanks Gavin Rea RN Joradn completed radiation therapy 08/02/23. He has scheduled f/u with Dr. Peters 12/08/24. Pt's is questioning if that appointment is correct, she thought Dr. Peters wanted to see Jordan back in a couple months (2023). She is aware Dr. Peters is retiring next year and is comfortable following with either Dr. Peters or Dr. Jasso. Patient's last follow up with Dr. Jasso was 10/22/23 and pt was to follow up with Dr. Peters. No follow up appt is scheduled with Dr. Jasso at this time. Dr. Peters and Dr. Jasso please advise. Gavin Rea RN documented in this encounter [facility] 10-28-2023 Telephone encounter Note PSS and Michelle: Please schedule as indicated per Dr. Urbina. BRM/NEO: Lab orders and CT orders pending your approval. Thanks Gavin Rea RN [facility] 10-28-2023 Telephone encounter Note Jordan completed radiation therapy 08/02/23. He has scheduled f/u with Dr. Peters 12/08/24. Pt's is questioning if that appointment is correct, she thought Dr. Peters wanted to see Jordan back in a couple months (2023). She is aware Dr. Peters is retiring next year and is comfortable following with either Dr. Peters or Dr. Jasso. Patient's last follow up with Dr. Jasso was 10/22/23 and pt was to follow up with Dr. Peters. No follow up appt is scheduled with Dr. Jasso at this time. Dr. Peters and Dr. Jasso please advise. Gavin Rea RN [facility] 10-22-2023 Note HNO ID: [id number] Author: Dimitry JASSO MD Service: ? Author Type: Physician Type: Progress Notes Filed: 10/29/2023 13:38 Note Text: Radiation Oncology - Follow Up Note PATIENT NAME: Jordan Bennett PATIENT DIAGNOSIS: Testicular cancer, right, classic seminoma status post right radical orchiectomy, stage IB [id number] 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 RADIATION SUMMARY: DATES OF TREATMENT: 07-15-2023 to 08-02-2023 AREA TREATED: Paraaortic and Right Pelvic Lymph node region DELIVERED DOSE: Area: Paraaortic and Right Pelvic Lymph node region 2000 cGy in 10 fractions, 2 Rapid VMAT/IMRT Arcs, 10X Area: Paraaortic Boost 1000 cGy in 5 fractions, 2 Rapid VMAT/IMRT Arcs, 10X TOTAL: 3000 cGy in 15 fractions ELAPSED TIME: 18 days. INTERVAL HISTORY: Patient is overall doing well. Nausea has resolved. Appetite fairly good. Energy level improving. He has returned to work. Denies abdominal pain. RADIOLOGY: PET/CT 10/15/2023: HEAD/NECK: * No FDG avid neoplastic process. CHEST: * No FDG avid neoplastic process. ABDOMEN/PELVIS: * No FDG avid neoplastic process. * Resolution of previously noted hypermetabolic aortocaval nodes status post radiation therapy. MUSCULOSKELETAL: * No FDG avid osseous lesion. * Cutaneous/subcutaneous hypermetabolic foci in the perineal and upper thigh regions have nearly completely resolved. A persistent area of hypermetabolic cutaneous thickening is noted in the posteromedial left thigh, likely inflammatory. This area would likely be amenable to evaluation on physical exam. LABORATORY: Latest Reference Range AND Units 10/15/23 12:50 LD 135 - 225 U/L 211 AFP <11.0 ng/mL <3.0 Beta hCG Quant Tumor Marker 0 - 3 IU/L <1 WBC 3.70 - 11.00 k/uL 5.66 RBC 4.20 - 6.00 m/uL 4.32 Hemoglobin 13.0 - 17.0 g/dL 13.2 Hematocrit 39.0 - 51.0 % 37.4 (L) Platelet Count 150 - 400 k/uL 207 MCV 80.0 - 100.0 fL 86.6 MCH 26.0 - 34.0 pg 30.6 MCHC 30.5 - 36.0 g/dL 35.3 MPV 9.0 - 12.7 fL 9.8 RDW-CV 11.5 - 15.0 % 13.0 DTYPE Auto Neut% % 72.7 Abs Neut (ANC) 1.45 - 7.50 k/uL 4.11 Lymph% % 15.5 Abs Lymph 1.00 - 4.00 k/uL 0.88 (L) [place]% % 9.0 Abs [place] <0.87 k/uL 0.51 Eosin% % 1.8 Abs Eosin <0.46 k/uL 0.10 Baso% % 0.5 Abs Baso <0.11 k/uL 0.03 Immature Gran % % 0.5 IMMATURE GRANS (ABS) <0.10 k/uL 0.03 NRBC /100 WBC 0.0 Absolute nRBC <0.01 k/uL <0.01 (L): Data is abnormally low ALLERGIES Allergen Reactions Penicillins Rash Shellfish Containin* Other: See Comments MEDICATIONS: lisinopril-hydroCHLOROthiazide (ZESTORETIC) 20-12.5 mg per tablet Take 2 tablets by mouth every afternoon. Omeprazole 20 mg TbEC Take by mouth. multivit-min/ferrous fumarate (MULTI VITAMIN ORAL) Refill(s) 0 NABUMETONE ORAL Take 500 mg by mouth two times a day. aspirin 81 mg cap Take 81 mg by mouth once daily. ondansetron (ZOFRAN) 8 mg tablet Take 1 tablet by mouth every 8 hours as needed for nausea/vomiting. (Patient not taking: Reported on 10/22/2023) traZODone (DESYREL) 50 mg tablet Take 50 mg by mouth at bedtime as needed. (Patient not taking: Reported on 10/22/2023) Zinc 50 mg tab Take by mouth. (Patient not taking: Reported on 10/22/2023) REVIEW OF SYSTEMS: GENERAL: Negative for weight loss, fevers, chills, or night sweats. HEENT: Negative for sudden vision or hearing changes. NECK: Negative for masses in the neck. RESPIRATORY: Negative for cough or shortness of breath. CARDIAC: Negative for chest pain, palpitations, murmurs, or syncopal episodes. GI: Negative for nausea, vomiting, diarrhea, constipation, blood per rectum, or melena. : Negative for dysuria, hematuria, urgency, frequency or incontinence. MUSCULOSKELETAL: Negative for limitations in movement, pain, or swelling. NEURO: Negative for dizziness, headache, weakness or numbness. HEMATOLOGIC: Negative for bleeding or easy bruising. SKIN: Negative for rashes or other skin changes. PHYSICAL EXAM: VS: BP 137/85 Pulse 76 Temp 36.3 ?C (97.3 ?F) (Temporal) Resp 18 Wt (!) 159 kg (350 lb 8.5 oz) SpO2 95% BMI 48.91 kg/m? KPS: 100 General Appearance: Alert and oriented. No acute distress. HEENT: NCAT. Sclera anicteric. PERRL. EOMI. Neck: Normal ROM. No palpable cervical or supraclavicular adenopathy. Chest: No respiratory distress. Lungs clear to auscultation bilaterally. Heart: Regular rate and rhythm. Abdomen: Soft. Nontender. Nondistended. descended left testicle Musculoskeletal: No edema. Normal ROM in extremities. No bone or spine tenderness. Neuro: Speech fluent. Gait normal. No focal deficits. Skin: No rashes noted small pimple-like eruption inner upper left thigh, mildly inflamed follicular type change likely not suspicious or related to his primary diagnosis likely cause for positive finding on PET scan Lymphatics: No palpable lymphadenopathy. ASSESS (more content not included)... [facility] 10-22-2023 History of Presen t illness Narrative Radiation Oncology - Follow Up Note PATIENT NAME: Jordan Bennett PATIENT DIAGNOSIS: Testicular cancer, right, classic seminoma status post right radical orchiectomy, stage IB [id number] 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 RADIATION SUMMARY: DATES OF TREATMENT: 07-15-2023 to 08-02-2023 AREA TREATED: Paraaortic and Right Pelvic Lymph node region DELIVERED DOSE: Area: Paraaortic and Right Pelvic Lymph node region 2000 cGy in 10 fractions, 2 Rapid VMAT/IMRT Arcs, 10X Area: Paraaortic Boost 1000 cGy in 5 fractions, 2 Rapid VMAT/IMRT Arcs, 10X TOTAL: 3000 cGy in 15 fractions ELAPSED TIME: 18 days. INTERVAL HISTORY: Patient is overall doing well. Nausea has resolved. Appetite fairly good. Energy level improving. He has returned to work. Denies abdominal pain. RADIOLOGY: PET/CT 10/15/2023: HEAD/NECK: * No FDG avid neoplastic process. CHEST: * No FDG avid neoplastic process. ABDOMEN/PELVIS: * No FDG avid neoplastic process. * Resolution of previously noted hypermetabolic aortocaval nodes status post radiation therapy. MUSCULOSKELETAL: * No FDG avid osseous lesion. * Cutaneous/subcutaneous hypermetabolic foci in the perineal and upper thigh regions have nearly completely resolved. A persistent area of hypermetabolic cutaneous thickening is noted in the posteromedial left thigh, likely inflammatory. This area would likely be amenable to evaluation on physical exam. LABORATORY: Latest Reference Range & Units 10/15/23 12:50 LD 135 - 225 U/L 211 AFP <11.0 ng/mL <3.0 Beta hCG Quant Tumor Marker 0 - 3 IU/L <1 WBC 3.70 - 11.00 k/uL 5.66 RBC 4.20 - 6.00 m/uL 4.32 Hemoglobin 13.0 - 17.0 g/dL 13.2 Hematocrit 39.0 - 51.0 % 37.4 (L) Platelet Count 150 - 400 k/uL 207 MCV 80.0 - 100.0 fL 86.6 MCH 26.0 - 34.0 pg 30.6 MCHC 30.5 - 36.0 g/dL 35.3 MPV 9.0 - 12.7 fL 9.8 RDW-CV 11.5 - 15.0 % 13.0 DTYPE Auto Neut% % 72.7 Abs Neut (ANC) 1.45 - 7.50 k/uL 4.11 Lymph% % 15.5 Abs Lymph 1.00 - 4.00 k/uL 0.88 (L) [place]% % 9.0 Abs [place] <0.87 k/uL 0.51 Eosin% % 1.8 Abs Eosin <0.46 k/uL 0.10 Baso% % 0.5 Abs Baso <0.11 k/uL 0.03 Immature Gran % % 0.5 IMMATURE GRANS (ABS) <0.10 k/uL 0.03 NRBC /100 WBC 0.0 Absolute nRBC <0.01 k/uL <0.01 (L): Data is abnormally low ALLERGIES Allergen Reactions Penicillins Rash Shellfish Containin* Other: See Comments MEDICATIONS: lisinopril-hydroCHLOROthiazide (ZESTORETIC) 20-12.5 mg per tablet Take 2 tablets by mouth every afternoon. Omeprazole 20 mg TbEC Take by mouth. multivit-min/ferrous fumarate (MULTI VITAMIN ORAL) Refill(s) 0 NABUMETONE ORAL Take 500 mg by mouth two times a day. aspirin 81 mg cap Take 81 mg by mouth once daily. ondansetron (ZOFRAN) 8 mg tablet Take 1 tablet by mouth every 8 hours as needed for nausea/vomiting. (Patient not taking: Reported on 10/22/2023) traZODone (DESYREL) 50 mg tablet Take 50 mg by mouth at bedtime as needed. (Patient not taking: Reported on 10/22/2023) Zinc 50 mg tab Take by mouth. (Patient not taking: Reported on 10/22/2023) REVIEW OF SYSTEMS: GENERAL: Negative for weight loss, fevers, chills, or night sweats. HEENT: Negative for sudden vision or hearing changes. NECK: Negative for masses in the neck. RESPIRATORY: Negative for cough or shortness of breath. CARDIAC: Negative for chest pain, palpitations, murmurs, or syncopal episodes. GI: Negative for nausea, vomiting, diarrhea, constipation, blood per rectum, or melena. : Negative for dysuria, hematuria, urgency, frequency or incontinence. MUSCULOSKELETAL: Negative for limitations in movement, pain, or swelling. NEURO: Negative for dizziness, headache, weakness or numbness. HEMATOLOGIC: Negative for bleeding or easy bruising. SKIN: Negative for rashes or other skin changes. PHYSICAL EXAM: VS: BP 137/85 Pulse 76 Temp 36.3 C (97.3 F) (Temporal) Resp 18 Wt (!) 159 kg (350 lb 8.5 oz) SpO2 95% BMI 48.91 kg/m KPS: 100 General Appearance: Alert and oriented. No acute distress. HEENT: NCAT. Sclera anicteric. PERRL. EOMI. Neck: Normal ROM. No palpable cervical or supraclavicular adenopathy. Chest: No respiratory distress. Lungs clear to auscultation bilaterally. Heart: Regular rate and rhythm. Abdomen: Soft. Nontender. Nondistended. descended left testicle Musculoskeletal: No edema. Normal ROM in extremities. No bone or spine tenderness. Neuro: Speech fluent. Gait normal. No focal deficits. Skin: No rashes noted small pimple-like eruption inner upper left thigh, mildly inflamed follicular type change likely not suspicious or related to his primary diagnosis likely cause for positive finding on PET scan Lymphatics: No palpable lymphadenopathy. ASSESSMENT AND PLAN: Testicular cancer, right, classic seminoma status post right radical orchiectomy, stage IB [id number] 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 Overall patient doing well. PET scan without evidence of any residual disease within the periaortic area, and remaining scan without other areas of suspicion. Recommend he return to his routine surveillance schedule. He will see Dr. Peters in 3 months with laboratory. Plan to see patient back in [address] scans. Signed by: Dimitry Jasso MD cc: Ashli Ni DO [address] [id number] [address] Peters documented in this encounter [facility] 10-15-2023 History of Presen t illness Narrative RADIOLOGY SERVICE PROGRESS NOTE SERVICE DATE: 10/15/2023 SERVICE TIME: 2:07 PM PATIENT IDENTITY VERIFICATION COMPLETED USING TWO (2) STANDARD IDENTIFIERS: Name and Date of confirmed by patient verbally POST EXAM PIV STATUS: Discontinued PROCEDURE TYPE: NM INJECT: PET/CT BODY SCAN. 17.4 mCi F18 FDG. No other medications given.. ADMINISTRATION TIME: 1310 PATIENT DISCHARGED TO: Ambulatory patient, left NM department area. A Diagnostic radioactive procedure has taken place, with no further precautions necessary other than routine body substance precautions. More information regarding radiation safety can be found using this link: [email or web address]% 20Nuclear%20Medicine%20Procedur [email or web address] SIGNATURE: RT Beto(R) PATIENT NAME: Jordan Bennett DATE: October 15, 2023 TIME: 2:07 PM PAGER/CONTACT #: documented in this encounter [facility] 10-15-2023 Note HNO ID: [id number] Author: SUDHIR CHURCH RT(R) Service: ? Author Type: Technologist Type: Progress Notes Filed: 10/15/2023 14:07 Note Text: RADIOLOGY SERVICE PROGRESS NOTE SERVICE DATE: 10/15/2023 SERVICE TIME: 2:07 PM PATIENT IDENTITY VERIFICATION COMPLETED USING TWO (2) STANDARD IDENTIFIERS: Name and Date of confirmed by patient verbally POST EXAM PIV STATUS: Discontinued PROCEDURE TYPE: NM INJECT: PET/CT BODY SCAN. 17.4 mCi F18 FDG. No other medications given.. ADMINISTRATION TIME: 1310 PATIENT DISCHARGED TO: Ambulatory patient, left NM department area. A Diagnostic radioactive procedure has taken place, with no further precautions necessary other than routine body substance precautions. More information regarding radiation safety can be found using this link: [email or web address] %[email or web address]-% 20Diagnostic%20Nuclear%20Medici ne%20Procedures.pdf SIGNATURE: RT Beto(R) PATIENT NAME: Jordan Bennett DATE: October 15, 2023 TIME: 2:07 PM PAGER/CONTACT #: [facility] 10-07-2023 Note HNO ID: [id number] Author: CATHI FAULKNER LSW Service: ? Author Type: Pewter Fabricator Type: Progress Notes Filed: 10/07/2023 15:34 Note Text: SOCIAL WORK FOLLOW UP NOTE: [facility] Date of service:10/07/23 TOPICS ADDRESSED: finances and PFA referral PLAN: Continue follow up as needed Assigned SW listed in Care Team tab: Yes Patient emailed this SW the following message...Hello. I have a pet scan scheduled in October and am I'm between jobs. I have no insurance at the moment and was curious if there was a program that might be able to help me. Thank you SW forwarded this request to LORNA Yusuf who called this Patient and left him a VM to call her back. Patient will be offered a PFA appointment to discuss the above listed concern. SW will remain available and will follow up as appropriate. OBDULIO Carrington [facility] 10-07-2023 History of Presen t illness Narrative SOCIAL WORK FOLLOW UP NOTE: [facility] Date of service:10/07/23 TOPICS ADDRESSED: finances and PFA referral PLAN: Continue follow up as needed Assigned SW listed in Care Team tab: Yes Patient emailed this SW the following message...Hello. I have a pet scan scheduled in October and am I'm between jobs. I have no insurance at the moment and was curious if there was a program that might be able to help me. Thank you SW forwarded this request to LORNA Yusuf who called this Patient and left him a VM to call her back. Patient will be offered a PFA appointment to discuss the above listed concern. SW will remain available and will follow up as appropriate. OBDULIO Carrington documented in this encounter [facility] 08-13-2023 Note HNO ID: [id number] Author: Dimitry JASSO MD Service: ? 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 RADIATION SUMMARY: DATES OF TREATMENT: 07-15-2023 to 08-02-2023 AREA TREATED: Paraaortic and Right Pelvic Lymph node region DELIVERED DOSE: Area: Paraaortic and Right Pelvic Lymph node region 2000 cGy in 10 fractions, 2 Rapid VMAT/IMRT Arcs, 10X Area: Paraaortic Boost 1000 cGy in 5 fractions, 2 Rapid VMAT/IMRT Arcs, 10X TOTAL: 3000 cGy in 15 fractions ELAPSED TIME: 18 days. INTERVAL HISTORY: Patient is overall doing well. Nausea has resolved. Appetite fairly good. Energy level improving. He has returned to work. Denies abdominal pain. ALLERGIES Allergen Reactions Penicillins Rash Shellfish Containin* Other: See Comments MEDICATIONS: ondansetron (ZOFRAN) 8 mg tablet Take 1 tablet by mouth every 8 hours as needed for nausea/vomiting. lisinopril-hydroCHLOROthiazide (ZESTORETIC) 20-12.5 mg per tablet Take 2 tablets by mouth every afternoon. traZODone (DESYREL) 50 mg tablet Take 50 mg by mouth at bedtime as needed. Omeprazole 20 mg TbEC Take by mouth. multivit-min/ferrous fumarate (MULTI VITAMIN ORAL) Refill(s) 0 Zinc 50 mg tab Take by mouth. REVIEW OF SYSTEMS: GENERAL: Negative for weight loss, fevers, chills, or night sweats. HEENT: Negative for sudden vision or hearing changes. NECK: Negative for masses in the neck. RESPIRATORY: Negative for cough or shortness of breath. CARDIAC: Negative for chest pain, palpitations, murmurs, or syncopal episodes. GI: Negative for nausea, vomiting, diarrhea, constipation, blood per rectum, or melena. : Negative for dysuria, hematuria, urgency, frequency or incontinence. MUSCULOSKELETAL: Negative for limitations in movement, pain, or swelling. NEURO: Negative for dizziness, headache, weakness or numbness. HEMATOLOGIC: Negative for bleeding or easy bruising. SKIN: Negative for rashes or other skin changes. PHYSICAL EXAM: VS: BP 141/86 Pulse 73 Temp 36.2 ?C (97.1 ?F) Resp 18 Wt (!) 155.4 kg (342 lb 9.5 oz) SpO2 97% BMI 47.80 kg/m? KPS: 100 General Appearance: Alert and oriented. No acute distress. HEENT: NCAT. Sclera anicteric. PERRL. EOMI. Neck: Normal ROM. No palpable cervical or supraclavicular adenopathy. Chest: No respiratory distress. Lungs clear to auscultation bilaterally. Heart: Regular rate and rhythm. Abdomen: Soft. Nontender. Nondistended. descended left testicle Musculoskeletal: No edema. Normal ROM in extremities. No bone or spine tenderness. Neuro: Speech fluent. Gait normal. No focal deficits. Skin: No rashes noted Lymphatics: No palpable lymphadenopathy. 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 Patient doing very well after recent para-aortic and right hemipelvic radiation. Recommend initial posttreatment imaging with PET scan which be ordered in 2 months. Patient will continue follow-up with medical oncology/Dr. Peters which will be scheduled. Signed by: Dimitry Jasso MD cc: Ashli Ni DO [address] [phone] [address] 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 RADIATION SUMMARY: DATES OF TREATMENT: 07-15-2023 to 08-02-2023 AREA TREATED: Paraaortic and Right Pelvic Lymph node region DELIVERED DOSE: Area: Paraaortic and Right Pelvic Lymph node region 2000 cGy in 10 fractions, 2 Rapid VMAT/IMRT Arcs, 10X Area: Paraaortic Boost 1000 cGy in 5 fractions, 2 Rapid VMAT/IMRT Arcs, 10X TOTAL: 3000 cGy in 15 fractions ELAPSED TIME: 18 days. INTERVAL HISTORY: Patient is overall doing well. Nausea has resolved. Appetite fairly good. Energy level improving. He has returned to work. Denies abdominal pain. ALLERGIES Allergen Reactions Penicillins Rash Shellfish Containin* Other: See Comments MEDICATIONS: ondansetron (ZOFRAN) 8 mg tablet Take 1 tablet by mouth every 8 hours as needed for nausea/vomiting. lisinopril-hydroCHLOROthiazide (ZESTORETIC) 20-12.5 mg per tablet Take 2 tablets by mouth every afternoon. traZODone (DESYREL) 50 mg tablet Take 50 mg by mouth at bedtime as needed. Omeprazole 20 mg TbEC Take by mouth. multivit-min/ferrous fumarate (MULTI VITAMIN ORAL) Refill(s) 0 Zinc 50 mg tab Take by mouth. REVIEW OF SYSTEMS: GENERAL: Negative for weight loss, fevers, chills, or night sweats. HEENT: Negative for sudden vision or hearing changes. NECK: Negative for masses in the neck. RESPIRATORY: Negative for cough or shortness of breath. CARDIAC: Negative for chest pain, palpitations, murmurs, or syncopal episodes. GI: Negative for nausea, vomiting, diarrhea, constipation, blood per rectum, or melena. : Negative for dysuria, hematuria, urgency, frequency or incontinence. MUSCULOSKELETAL: Negative for limitations in movement, pain, or swelling. NEURO: Negative for dizziness, headache, weakness or numbness. HEMATOLOGIC: Negative for bleeding or easy bruising. SKIN: Negative for rashes or other skin changes. PHYSICAL EXAM: VS: BP 141/86 Pulse 73 Temp 36.2 C (97.1 F) Resp 18 Wt (!) 155.4 kg (342 lb 9.5 oz) SpO2 97% BMI 47.80 kg/m KPS: 100 General Appearance: Alert and oriented. No acute distress. HEENT: NCAT. Sclera anicteric. PERRL. EOMI. Neck: Normal ROM. No palpable cervical or supraclavicular adenopathy. Chest: No respiratory distress. Lungs clear to auscultation bilaterally. Heart: Regular rate and rhythm. Abdomen: Soft. Nontender. Nondistended. descended left testicle Musculoskeletal: No edema. Normal ROM in extremities. No bone or spine tenderness. Neuro: Speech fluent. Gait normal. No focal deficits. Skin: No rashes noted Lymphatics: No palpable lymphadenopathy. 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 Patient doing very well after recent para-aortic and right hemipelvic radiation. Recommend initial posttreatment imaging with PET scan which be ordered in 2 months. Patient will continue follow-up with medical oncology/Dr. Peters which will be scheduled. Signed by: Dimitry Jasso MD cc: Ashli Ni, DO [address] [place] [address] [address] Peters documented in this encounter [facility] 08-09-2023 Miscellaneous Notes Per radiation: Cancel Dr Delacruz appt for 08/08 - further arrangements will be made after patient sees Dr. Jasso again. Jamie Doll documented in this encounter [facility] 08-02-2023 History of Presen t illness Narrative 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 AREA TREATED: Paraaortic and Right Pelvic Lymph node region DELIVERED DOSE: Area: Paraaortic and Right Pelvic Lymph node region 2000 cGy in 10 fractions, 2 Rapid VMAT/IMRT Arcs, 10X Area: Paraaortic Boost 1000 cGy in 5 fractions, 2 Rapid VMAT/IMRT Arcs, 10X TOTAL: 3000 cGy in 15 fractions ELAPSED TIME: 18 days. CLINICAL SUMMARY: The patient tolerated radiation with mild to moderate nausea and fatigue. The patient will be seen again in 2 weeks for postradiation follow-up. Staff Physician Thierno Jasso M.D. / KG :42 PM Electronically Signed cc: Dr. Last Peters documented in this encounter [facility] 08-02-2023 Note HNO ID: [id number] Author: Dimitry JASSO MD Service: ? Author Type: Physician Type: Progress Notes Filed: 08/07/2023 14:42 Note Text: 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 AREA TREATED: Paraaortic and Right Pelvic Lymph node region DELIVERED DOSE: Area: Paraaortic and Right Pelvic Lymph node region 2000 cGy in 10 fractions, 2 Rapid VMAT/IMRT Arcs, 10X Area: Paraaortic Boost 1000 cGy in 5 fractions, 2 Rapid VMAT/IMRT Arcs, 10X TOTAL: 3000 cGy in 15 fractions ELAPSED TIME: 18 days. CLINICAL SUMMARY: The patient tolerated radiation with mild to moderate nausea and fatigue. The patient will be seen again in 2 weeks for postradiation follow-up. Staff Physician Thierno Jasso M.D. / KG :42 PM Electronically Signed cc: Dr. Lats Peters [facility] 07-29-2023 Note HNO ID: [id number] Author: Dimitry JASSO MD Service: ? 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 COURSE: definitive Current dose: 2200 cGy in 11 fx Planned dose: 3000 cGy in 15 fx SUBJECTIVE: Doing well. Some fatigue. Nausea improved on 3 times daily Zofran dosing. PHYSICAL EXAM: 07/29/23 0954 BP: (P) 131/86 Pulse: (P) 65 Resp: (P) 16 Temp: (P) 36.2 ?C (97.2 ?F) SpO2: (P) 96% Weight: (!) (P) 159.6 kg (351 lb 13.7 oz) KPS: 100 General Appearance: Alert and oriented. No acute distress. IMAGING/LAB RESULTS: Hemoglobin (g/dL) Date Value 07/25/2023 15.5 Hematocrit (%) Date Value 07/25/2023 44.7 WBC (k/uL) Date Value 07/25/2023 3.85 Platelet Count (k/uL) Date Value 07/25/2023 200 TOXICITY ASSESSMENT (CTC v4.0): Fatigue:grade 1 Radiation Dermatitis: grade 0 - No symptoms Diarrhea:grade 0 - No symptoms Nausea:1-2 Treatment chart checked: Yes Patient treatment site reviewed and verified:Yes Port films reviewed and current:Yes Medications started: None ASSESSMENT/PLAN: Patient doing well. Continue Zofran prior to treatment. Chart and imaging reviewed. Continue radiation as outlined. He will finish on Saturday. Follow-up care discussed. 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 COURSE: definitive Current dose: 2200 cGy in 11 fx Planned dose: 3000 cGy in 15 fx SUBJECTIVE: Doing well. Some fatigue. Nausea improved on 3 times daily Zofran dosing. PHYSICAL EXAM: 07/29/23 0954 BP: (P) 131/86 Pulse: (P) 65 Resp: (P) 16 Temp: (P) 36.2 C (97.2 F) SpO2: (P) 96% Weight: (!) (P) 159.6 kg (351 lb 13.7 oz) KPS: 100 General Appearance: Alert and oriented. No acute distress. IMAGING/LAB RESULTS: Hemoglobin (g/dL) Date Value 07/25/2023 15.5 Hematocrit (%) Date Value 07/25/2023 44.7 WBC (k/uL) Date Value 07/25/2023 3.85 Platelet Count (k/uL) Date Value 07/25/2023 200 TOXICITY ASSESSMENT (CTC v4.0): Fatigue:grade 1 Radiation Dermatitis: grade 0 - No symptoms Diarrhea:grade 0 - No symptoms Nausea:1-2 Treatment chart checked: Yes Patient treatment site reviewed and verified:Yes Port films reviewed and current:Yes Medications started: None ASSESSMENT/PLAN: Patient doing well. Continue Zofran prior to treatment. Chart and imaging reviewed. Continue radiation as outlined. He will finish on Saturday. Follow-up care discussed. Dimitry Jasso MD documented in this encounter [facility] 07-26-2023 Miscellaneous Notes I notified Sudhir that [employer] obtained an override from the insurance and they should be able to package pick up the original prescription from [facility]. Sudhir is very thankful for the extra work created in getting this prescription approved. Gavin Rea RN I called [facility] and obtained an override so the patient is able to fill the Ondansetron for 90 today. Sudhir, pt's spouse, left a message stating [employer] has not received prior authorization for the new Zofran prescription sent yesterday. I called and spoke to [facility] and was told they received the authorization this a.m. but patient's insurance will not allow a refill until 07/31/23 even with a new prescription and increased frequency instructions. [facility] Pharmacists/Dr. Kelly: Do you have any recommendations? Dr. Kelly to possibly prescribe compazine in the interim? Thanks Gavin Rea RN documented in this encounter [facility] 07-25-2023 Miscellaneous Notes Prior authorization approved, he will be tablets to get 90 tablets per month. Jt Mortensen, PharmD, [facility] Prior Authorization Note Provider Intervention Required?: No- Pharmacy completed on your behalf. Rx Plan: Other: [facility]: ondansetron 8 mg tablets 90 per 30 days Cover My Meds Ortiz: [id number] Determination: Approved Prior Authorization/Case #: [id number] Prior Authorization Expiration: 07/24/2024 Time to PA Submission in CMM: 15 min Time to PA Determination in CMM: Same day Additional Information: For questions relating to this submission, please contact [facility] at [phone] Sudhir, pt's , called stating there is some sort of issue with Jordan's new Zofran prescription. I called [facility] and Lisa in the pharmacy said pt's insurance will only cover a 30 day supply without a prior auth. Lisa will send an auth request to our office. Sudhir notified of the above and will check back with their local pharmacy for an update. Thanks Gavin Rea Rn documented in this encounter [facility] 07-25-2023 Nurse Note Jordan L Sabrina presents in office today for: Lab Draw only . Ordering Provider: Thierno Jasso M.D. Test (s) ordered: CBC Method for obtaining blood: Phlebotomy was performed, accessing left hand vein. Needle removed intact. Dressing secured. Patient denies discomfort, dizziness, light-headedness or weakness and left the department without assist. Gavin Rea LPN documented in this encounter [facility] 07-25-2023 Miscellaneous Notes Please sign for Dr Jasso pt. Thank you Radha Skinner RN documented in this encounter [facility] 07-24-2023 Miscellaneous Notes I left a message for Sudhir with Dr. Jasso's instructions to increase Zofran 8mg TID prn. I requested a call back if a refill is needed. Gavin Rea RN Sudhir, pt's , called stating Jordan has been vomiting daily since he started radiation therapy. He is currently taking Zofran 8mg once daily prior to radiation therapy. He c/o fatigue also. He denies feeling lightheaded or dizzy. Please advise. Gavin Rea RN documented in this encounter [facility] 07-22-2023 Note HNO ID: [id number] Author: Dimitry JASSO MD Service: ? 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 COURSE: definitive Current dose: 1200 cGy in 6 fx Planned dose: 3000 cGy in 15 fx SUBJECTIVE: Doing well. Had couple episodes of nausea and 1 episode of vomiting after first treatment. Well-controlled with Zofran prior to treatment. Appetite stable. PHYSICAL EXAM: 07/22/2344 BP: 165/108 Pulse: 64 Resp: 18 Temp: 36.5 ?C (97.7 ?F) SpO2: 98% Weight: (!) 152.4 kg (335 lb 15.7 oz) KPS: 100 General Appearance: Alert and oriented. No acute distress. IMAGING/LAB RESULTS: Hemoglobin (g/dL) Date Value 07/18/2023 16.3 Hematocrit (%) Date Value 07/18/2023 46.9 WBC (k/uL) Date Value 07/18/2023 7.07 Platelet Count (k/uL) Date Value 07/18/2023 247 TOXICITY ASSESSMENT (CTC v4.0): Fatigue:grade 0 - No symptoms Radiation Dermatitis: grade 0 - No symptoms Diarrhea:grade 0 - No symptoms Nausea: none Treatment chart checked: Yes Patient treatment site reviewed and verified:Yes Port films reviewed and current:Yes Medications started: None ASSESSMENT/PLAN: Patient doing well. Continue Zofran prior to treatment. Chart and imaging reviewed. Continue radiation as outlined. 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 COURSE: definitive Current dose: 1200 cGy in 6 fx Planned dose: 3000 cGy in 15 fx SUBJECTIVE: Doing well. Had couple episodes of nausea and 1 episode of vomiting after first treatment. Well-controlled with Zofran prior to treatment. Appetite stable. PHYSICAL EXAM: 07/22/23 0944 BP: 165/108 Pulse: 64 Resp: 18 Temp: 36.5 C (97.7 F) SpO2: 98% Weight: (!) 152.4 kg (335 lb 15.7 oz) KPS: 100 General Appearance: Alert and oriented. No acute distress. IMAGING/LAB RESULTS: Hemoglobin (g/dL) Date Value 07/18/2023 16.3 Hematocrit (%) Date Value 07/18/2023 46.9 WBC (k/uL) Date Value 07/18/2023 7.07 Platelet Count (k/uL) Date Value 07/18/2023 247 TOXICITY ASSESSMENT (CTC v4.0): Fatigue:grade 0 - No symptoms Radiation Dermatitis: grade 0 - No symptoms Diarrhea:grade 0 - No symptoms Nausea: none Treatment chart checked: Yes Patient treatment site reviewed and verified:Yes Port films reviewed and current:Yes Medications started: None ASSESSMENT/PLAN: Patient doing well. Continue Zofran prior to treatment. Chart and imaging reviewed. Continue radiation as outlined. Dimitry Jasso MD documented in this encounter [facility] 07-18-2023 Nurse Note Jordan Bennett presents in office today for: Lab Draw only . Ordering Provider: Thierno Jasso M.D. Test (s) ordered: CBC Method for obtaining blood: Phlebotomy was performed, accessing right hand vein. Needle removed intact. Dressing secured. Patient denies discomfort, dizziness, light-headedness or weakness and left the department without assist. Gavin Rea LPN documented in this encounter [facility] 07-15-2023 Note HNO ID: [id number] Author: Dimitry JASSO MD Service: ? 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 COURSE: definitive Current dose: 200 cGy in 1 fx Planned dose: 3000 cGy in 15 fx SUBJECTIVE: Here to start radiation, doing well. PHYSICAL EXAM: KPS: 100 General Appearance: Alert and oriented. No acute distress. IMAGING/LAB RESULTS: None TOXICITY ASSESSMENT (CTC v4.0): Fatigue:grade 0 - No symptoms Radiation Dermatitis: grade 0 - No symptoms Diarrhea:grade 0 - No symptoms Nausea: none Treatment chart checked: Yes Patient treatment site reviewed and verified:Yes Port films reviewed and current:Yes Medications started: None ASSESSMENT/PLAN: Patient starting radiation today. Plan of care and expectations again reviewed. Plan, MU calculations and qa report reviewed. Initial imaging including cone beam ct and verification reviewed and approved. First treatment given. Continue radiation as prescribed. Dimitry Jasso MD [facility] 07-05-2023 Note HNO ID: [id number] Author: Dimitry JASSO MD Service: ? Author Type: Physician Type: Progress Notes Filed: 07/15/2023 08:45 Note Text: JORDAN BENNETT [id number] 07/05/2023 [facility] Department of Radiation Oncology Treatment Planning Note For reasons stated in the consult note, Jordan Bennett is a candidate for radiation therapy. Based on review and interpretation of the relevant diagnostic studies together with the exam findings, Jordan Bennett was simulated on 07/05/2023 at which time the target volume and/or requisite wolf were delineated, as indicated in the simulation note, to be treated according to the prescription. The treatment target and organs at risk were contoured on the simulation scan . After reviewing multiple treatment plans with dosimetry, the best plan was approved to deliver the prescribed course of radiation to the target area using inverse planning to allow for the best isodose distribution, treating to the 97.3% isodose line with 10MV and 2 wolf. Custom MLC asym jaws for IMRT were the treatment devices used to shape/modify the beams. Limiting dose to normal tissue was confirmed upon review of the calculated dose volume histogram. IMRT planning was used because it best met the dose/volume constraints for the organs at risk for this patient, better than what could be achieved using conventional or 3D planning. The specific dose requirements for the PTV, organs at risk and dose-volume histograms are contained in this treatment plan and/or elsewhere in the medical record. A completed summary of this plan dated 07/11/2023 incorporated herein by reference includes dose, beam arrangements, energy, blocking, isodose distribution, and/or ports and DVH. Electronically Signed Thierno Jasso M.D. :45 AM [facility] 07-05-2023 Note HNO ID: [id number] Author: Dimitry JASSO MD Service: ? Author Type: Physician Type: Progress Notes Filed: 07/05/2023 12:03 Note Text: JORDAN BENNETT [id number] 07/05/2023 [facility] Radiation Oncology Department SIMULATION NOTE DATE OF SIMULATION: 07/05/2023 THERAPIST: Earlene Nunn MACHINE: [employer] DIAGNOSIS: Malignant neoplasm of descended right [id number] AREA: ABDOMEN CONTRAST: None Consent in Epic: Yes PATIENT POSITION: Supine. FIXATION DEVICE: In order to achieve accurate and reproducible treatments, the patient is immobilized with ORFIT AIO. A time-out was conducted and recorded by the therapist. CT scan was completed for target localization and planning. Field arrangement will be determined after plan has been completed. The patient is scheduled for a verification simulation on the treatment machine to ensure proper set-up and field arrangement is correct prior to the first treatment of primary and boost wolf if applicable. Patient education will be completed per nursing. Electronically Signed Thierno Jasso M.D. / LISSA 2:03 PM [facility] 06-28-2023 Note HNO ID: [id number] Author: CATHI FAULKNER LSW Service: ? Author Type: [employer] Type: Progress Notes Filed: 06/28/2023 15:50 Note Text: Patient Declined Social Work Assessment SOCIAL WORK FOLLOW UP NOTE: [facility] Date of service:06/1223 Jordan Bennett is being seen for a follow up social work visit. Today's visit includes: patient TOPICS ADDRESSED: coping/support PLAN: Continue follow up as needed F/U APPOINTMENT: PRN Assigned SW listed in Care Team tab: Yes Patient appears on the PRO [place] Report for a NCCN score of 8. This questionnaire was completed on 06/27/23. SW called and spoke with Patient. He reports that he felt much better after the appointment than before. Patient now knows his treatment plan. Patient is aware that SW services are available to him. Patient denied any immediate psychosocial needs or concerns. SW will remain available and will follow up as appropriate. OBDULIO Carrington [facility] 06-27-2023 Note HNO ID: [id number] Author: Dimitry JASSO MD Service: ? Author Type: Physician Type: Progress Notes Filed: 07/05/2023 08:51 Note Text: Radiation Oncology - New Patient/Consult Note PATIENT NAME: Jordan Bennett PATIENT REQUESTING PROVIDER: Dr. 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 HPI: Patient known to me from previous consult for his stage Ib classic seminoma. Patient has been doing well and surveillance about clinical issues or concerns. He has been undergoing CT evaluation every [address] in October of this year demonstrating nonspecific interval increase in aortocaval nodes, nonspecific. Follow-up scans 05/17/2023 demonstrated increased size of the aortocaval lymph node measuring up to 1.3 cm ,as noted below. 05/17/2023 CT chest IMPRESSION: 1. Stable CT of the chest. Patchy groundglass opacities in both lower lobes, likely infectious/inflammatory in nature. No new lobar consolidation or pleural effusion. 2. Stable right upper lobe 3 mm nodule. No new or enlarging nodules are seen. 3. Right paratracheal node measuring 1.2 cm in short axis. No bulky intrathoracic adenopathy is visualized. 05/17/2023 CT abdomen/pelvis IMPRESSION: 1. Interval increase in size of aortocaval node, now measuring up to 1.3 cm. Other previously described lymph nodes appear unchanged. No new abdominal or pelvic adenopathy is visualized. 2. No additional findings of abdominal or pelvic metastatic disease. 3. Mild hepatic steatosis. Patient underwent further evaluation with PET scan: 06/07/2023 PET scan IMPRESSION: 1. Neck: No suspicious hypermetabolic foci 2. Chest: No evidence of FDG avid neoplastic process 3. Abdomen and pelvis: Hypermetabolic aortocaval lymph node suspicious for metastases. Hypermetabolic foci of subcutaneous thickening in the gluteal/inguinal regions possibly inflammatory. 4. Skeleton: No hypermetabolic osseous lesions LABORATORY: Latest Reference Range AND Units 05/17/23 10:18 Sodium 136 - 144 mmol/L 140 Potassium 3.7 - 5.1 mmol/L 4.1 Chloride 97 - 105 mmol/L 106 (H) CO2 22 - 30 mmol/L 24 BUN 9 - 24 mg/dL 22 Creatinine 0.73 - 1.22 mg/dL 0.95 Glucose 74 - 99 mg/dL 103 (H) Protein, Total 6.3 - 8.0 g/dL 7.1 Calcium 8.5 - 10.2 mg/dL 9.5 Albumin 3.9 - 4.9 g/dL 4.5 Bilirubin, Total 0.2 - 1.3 mg/dL 0.5 Alkaline Phosphatase 38 - 113 U/L 65 ALT 10 - 54 U/L 17 AST 14 - 40 U/L 17 Anion Gap 9 - 18 mmol/L 10 LD 135 - 225 U/L 211 eGFR >=60 mL/min/1.73m? 98 AFP <11.0 ng/mL <3.0 Beta hCG Quant Tumor Marker 0 - 3 IU/L <1 WBC 3.70 - 11.00 k/uL 7.66 RBC 4.20 - 6.00 m/uL 5.16 Hemoglobin 13.0 - 17.0 g/dL 15.2 Hematocrit 39.0 - 51.0 % 43.7 Platelet Count 150 - 400 k/uL 252 MCV 80.0 - 100.0 fL 84.7 MCH 26.0 - 34.0 pg 29.5 MCHC 30.5 - 36.0 g/dL 34.8 MPV 9.0 - 12.7 fL 10.4 RDW-CV 11.5 - 15.0 % 12.9 DTYPE Auto Neut% % 58.3 Abs Neut (ANC) 1.45 - 7.50 k/uL 4.46 Lymph% % 30.9 Abs Lymph 1.00 - 4.00 k/uL 2.37 [place]% % 6.9 Abs [place] <0.87 k/uL 0.53 Eosin% % 2.7 Abs Eosin <0.46 k/uL 0.21 Baso% % 0.8 Abs Baso <0.11 k/uL 0.06 Immature Gran % % 0.4 IMMATURE GRANS (ABS) <0.10 k/uL 0.03 NRBC /100 WBC 0.0 Absolute nRBC <0.01 k/uL <0.01 (H): Data is abnormally high ALLERGIES Allergen Reactions Penicillins Rash Shellfish Containin* Other: See Comments PAST MEDICAL HISTORY Diagnosis Date BPH (benign prostatic hyperplasia) Epididymal mass Hematuria Primary hypertension Testicular cancer (HCC) Prior radiation therapy, collagen vascular disease, or inflammatory bowel disease: No PAST SURGICAL HISTORY Procedure Laterality Date CYSTOSCOPY PAST SURGICAL HISTORY OF Right 08/03/2021 FAMILY HISTORY Problem Relation Age of Onset Brain Cancer Father Cancer Paternal Grandfather Social History Tobacco Use Smoking status: Never Smokeless tobacco: Never Vaping Use Vaping Use: Never used Substance Use Topics Alcohol use: Not Currently Drug use: Never COMPLETE REVIEW OF SYSTEMS: GENERAL: feeling well without fatigue, no recent change in weight NECK: denies swelling or pain in neck RESPIRATORY: no cough, no wheezing or shortness of breath CARDIOVASCULAR: no chest pain, no palpitations GI: normal appetite, tolerating PO well, BMs normal and no abdominal pain : urination is normal, no history of prior scrotal surgery, no history of undescended testes MUSCULOSKELETAL: denies any painful or swollen joints, no muscle aches SKIN: no rash As noted in HPI PHYSICAL EXAM: VS: BP 141/77 Pulse 68 Temp 36.4 ?C (97.6 ?F) Resp 16 Wt (!) 151 kg (332 lb 14.3 oz) SpO2 96% BMI 46.43 kg/m? KPS: 100 General Appearance: Alert and oriented. No acute distress. HEENT: NCAT. Sclera anicteric. PERRL. EOMI. Neck: Normal ROM. No palpable cervical or supraclavicular adenopathy. Ch (more content not included)... [facility] 06-27-2023 Note HNO ID: [id number] Author: JORDAN PETERS MD Service: ? Author Type: Physician Type: Progress Notes Filed: 06/28/2023 07:58 Note Text: PATIENT NAME: Jordan Bennett DATE: 06/27/2023 PRIMARY CARE PHYSICIAN: Ashli Ni DO OTHER PHYSICIANS: Dr. Lweis, Dr. Jasso Portions of this encounter note have been copied from the note from 05/23/2023 and has been updated where appropriate, and reflect my current medical decision making from today. CC: This is a 48 year old male with metastatic seminoma of the right testicle, seen for scheduled follow-up. INTERIM HISTORY: Since the patient's last visit here he underwent a PET scan for evaluation of his abnormal CT. The PET scan revealed a hypermetabolic aortocaval lymph node suspicious for metastases. The scan revealed several other areas of abnormality, but not felt to be consistent with metastases. Clinically the patient feels well. He denies abdominal pain or other GI symptoms. MEDICATIONS: Current Outpatient Medications Medication Sig lisinopril-hydroCHLOROthiazide (ZESTORETIC) 20-12.5 mg per tablet Take 2 tablets by mouth every afternoon. traZODone (DESYREL) 50 mg tablet Take 50 mg by mouth at bedtime as needed. Omeprazole 20 mg TbEC Take by mouth. multivit-min/ferrous fumarate (MULTI VITAMIN ORAL) Refill(s) 0 Zinc 50 mg tab Take by mouth. No current facility-administered medications for this visit. ALLERGIES: ALLERGIES Allergen Reactions Penicillins Rash Shellfish Containin* Other: See Comments PAST MEDICAL HISTORY: PAST MEDICAL HISTORY Diagnosis Date BPH (benign prostatic hyperplasia) Epididymal mass Hematuria Primary hypertension Testicular cancer (HCC) PAST SURGICAL HISTORY: PAST SURGICAL HISTORY Procedure Laterality Date CYSTOSCOPY PAST SURGICAL HISTORY OF Right 08/03/2021 FAMILY HISTORY: FAMILY HISTORY Problem Relation Age of Onset Brain Cancer Father Cancer Paternal Grandfather SOCIAL HISTORY: Social History Tobacco Use Smoking status: Never Smokeless tobacco: Never Vaping Use Vaping Use: Never used Substance Use Topics Alcohol use: Not Currently Drug use: Never COMPLETE REVIEW OF SYSTEMS: CONSTITUTION: Negative for pain, fatigue, weight loss, or appetite loss. EENT: Negative for mouth soreness, antibiotics use, epistaxis, visual problems, neck or facial swelling, fever/chills, bleeding gums, or hearing loss. CV: Negative for edema, calf swelling, palpitations, or chest pain. RESPIRATORY: Negative for cough, SOB, hemoptysis, or wheezing. GI: Negative for nausea/vomiting, heartburn, vomiting blood, dysphasia, diarrhea, blood in stool, constipation, early satiety, PICA, vegetarian, poor nutrition, abdominal fullness, or abdominal pain. NEUROLOGICAL: Negative for numbness/tingling, dizziness, gait disturbance, headache, speech disturbance, tremor, hemiparesis/sensory loss, or change in mental status. MUSCULOSKELETAL: Negative for joint pain, joint swelling, or proximal muscle weakness. SKIN: Negative for hair loss, bruising, nail changes, rash, itching, pallor, or jaundice. ENDO/URO: Negative for hot flashes, cold or heat intolerance, urinary frequency, urinary hesitancy, menorrhagia, or hematuria. PSYCH: Negative for anxiety, depression, or other. PHYSICAL EXAM: BP 141/77 Pulse 68 Temp 36.3 ?C (97.4 ?F) (Temporal) Resp 16 Ht 180.3 cm (5' 10.98 ) Wt (!) 151 kg (332 lb 14.3 oz) SpO2 96% BMI 46.45 kg/m? General: Alert and oriented, no distress, pleasant and cooperative. Heart: Regular, normal S1 and S2, no murmurs, rubs, or gallops Lungs: Clear to auscultation bilaterally Abdomen: Benign Extremities: Feet/ankles without edema, posterior tibial pulses full and symmetrical PATHOLOGY: 08/03/2021 Radical right orchiectomy ([facility]) Classic seminoma testicle: 3.2 x 3.0 x 2.5 cm. Intratubular seminoma. The tumor focally invades epididymis and hilar soft tissue. Angiolymphatic invasion is present. The spermatic cord resection margin is free of neoplasm. LABORATORY DATA: Hemoglobin (g/dL) Date Value 05/17/2023 15.2 Hematocrit (%) Date Value 05/17/2023 43.7 WBC (k/uL) Date Value 05/17/2023 7.66 Platelet Count (k/uL) Date Value 05/17/2023 252 RADIOLOGY/OTHER STUDIES: 06/07/2023 PET scan IMPRESSION: 1. Neck: No suspicious hypermetabolic foci 2. Chest: No evidence of FDG avid neoplastic process 3. Abdomen and pelvis: Hypermetabolic aortocaval lymph node suspicious for metastases. Hypermetabolic foci of subcutaneous thickening in the gluteal/inguinal regions possibly inflammatory. 4. Skeleton: No hypermetabolic osseous lesions 05/17/2023 CT chest IMPRESSION: 1. Stable CT of the chest. Patchy groundglass opacities in both lower lobes, likely infectious/inflammatory in nature. No new lobar consolidation or pleural effusion. 2. Stable right upper lobe 3 mm nodule. No new or enlarging n (more content not included)... [facility] 06-27-2023 Note Education (RADTSA) JORDAN BENNETT ([id number]) 1975 M Date Time Provider Department 06/27/23 GAVIN REA Reason for Visit: Patient Education [91] Visit Notes: >> Gavin Rea LPN [facility] Jun 27, 2023 3:27 PM Status: Signed Radiation Therapy - Patient Education Note PATIENT NAME: Jordan Bennett PATIENT June 27, 2023 [facility] FACILITY/LOCATION: [facility] READINESS TO LEARN Cognitive Ability: Alert and oriented Motivation to learn: Interested Family Support: High - Very involved in pt care Instruction provide to: Patient and Spouse Patient learns best by: Multiple Methods Factors effecting learning: None Physical limitations effecting learning: None LEARNING RESPONSE Diagnosis: Pt simulated today for radiation therapy to paraaortic area. Education Topic/Teaching Points: Radiation therapy, Side effects, and OTV: Method of instruction: Written instruction - handouts Verbal instruction Patient /Family response: Patient and family verbalized understanding of radiation treatments, side effects, OTV, and transportation. Follow-up plan: Patient instructed to call with any further issues Recommend - Recommend continued instruction and follow up as directed Contact information given. Supplemental material: Informational handouts on Appetite, Fatigue, Nausea and vomiting, Skin changes, and radiation therapy to the abdomen, and education binder. Referral (recommendation): None, Pt denied need for social work, van service, and project manager/design manager. Was approved? No Signed by: Gavin Rea LPN During your visit today, we recorded the following information about you: Allergies As of Date: 06/27/2023 Noted Allergy Reaction PENICILLINS 08/23/2021 2 - Rash SHELLFISH CONTAINING PRODUCTS 08/23/2021 14 - Other: See Comments Date Reviewed: 06/27/2023 Reviewed by: Jewels Peterson MA - Fully Assessed Prescriptions as of 06/27/2023 - lisinopril-hydroCHLOROthiazide (ZESTORETIC) 20-12.5 mg per tablet Take 2 tablets by mouth every afternoon. - traZODone (DESYREL) 50 mg tablet Take 50 mg by mouth at bedtime as needed. - Omeprazole 20 mg TbEC Take by mouth. - multivit-min/ferrous fumarate (MULTI VITAMIN ORAL) Refill(s) 0 - Zinc 50 mg tab Take by mouth. Encounter Status:Closed by GAVIN REA on 06/27/23 [facility] 06-20-2023 Evaluation note Encounter Date Diagnosis Assessment Notes Jun, Obstructive sleep apnea (ICD-10 - G47.33) Fortunately the patient is using and benefiting from treatment. I am not sure if he is really getting over pressure, or if the problem comes more from mask leak. We discussed mask fit and selection, but I will also decrease maximum pressure to 14 which should go fine based on his download. I encouraged him to keep working on weight reduction as this may also be a way to reduce delivered pressures. He will call if problems Jun, BMI 45.0-49.9, adult (ICD-10 - Z68.42) Weight reduction would be broadly beneficial for overall health, but would also have direct benefits on apnea severity and sleep quality. Even moderate weight reduction can affect LORENE and snoring, and in some patients weight reduction can completely resolve sleep apnea Jun, Essential hypertension (ICD-10 - I10) Uncontrolled sleep apnea can significantly increase blood pressures, and there is a strong association between untreated apnea and requiring multiple medications for hypertension treatment. Control of sleep apnea will frequently have a positive effect on blood pressure control, and may additionally reduce blood pressure lability. Jun, Other Call if any questions or problems. Patient is advised to work on healthy diet choices and appropriate servings, weight control, regular exercise as directed, and reduce fat intake. Use machine regularly, and keep up with mask changes as needed. Call if problems with mask toleration, increased sleepiness, or poor response to treatment. . [employer] Other 12-22-2023 History of Present illness Narrative* Lisa Martinez RN - 06/07/2023 1:30 PM EST Radiology Service Progress Note DATE OF SERVICE: June 07, 2023 TIME: 1:40 PM PATIENT IDENTITY VERIFICATION COMPLETED USING TWO (2) STANDARD IDENTIFIERS: Name and Date of confirmed by patient verbally. FALL SCREENING: Has the patient had 2 falls in the last year or 1 fall with injury or currently using an Ambulatory Assistive Device (Walker, Cane, Wheelchair, Crutches, etc.)? No PATIENT GENDER DATA: Male EXAM: CT -CONTRAST INDUCED NEPHROPATHY RISK FACTORS: Not applicable CREATININE: Creatinine Date Value Ref Range Status 05/17/2023 0.95 0.73 - 1.22 mg/dL Final 02/14/2023 1.01 0.73 - 1.22 mg/dL Final 10/31/2022 0.89 0.73 - 1.22 mg/dL Final Estimated Glomerular Filtration Rate Date Value Ref Range Status 05/17/2023 98 >=60 mL/min/1.73m Final Comment: Estimated Glomerular Filtration Rate (eGFR) is calculated using the 2020 CKD-EPI creatinine equation. This equation utilizes serum creatinine, sex, and age as parameters. The creatinine assay has traceable calibration to isotope dilution- mass spectrometry. Refer to KDIGO guidelines for clinical interpretation. In patients with unstable renal function, e.g. those with acute kidney injury, the eGFRmay not accurately reflect actual GFR. P.O.C.T. RESULTS: N/A June 07, 2023 TREATMENT: N/A IV SITE: Ambulatory: A peripheral IV was started in the Right hand with a Angio cath: 22 gauge. IV SITE APPEARANCE: Clean,Dry and Intact SIGNATURE: Lisa Martinez RN PATIENT NAME: Jordan Bennett DATE: June 07, 2023 TIME: 1:40 PM * Sudhir Church, RT(R) - 06/07/2023 1:30 PM EST RADIOLOGY SERVICE PROGRESS NOTE SERVICE DATE: 06/07/2023 SERVICE TIME: 1:49 PM PATIENT IDENTITY VERIFICATION COMPLETED USING TWO (2) STANDARD IDENTIFIERS: Name and Date of confirmed by patient verbally FPOST EXAM PIV STATUS: Discontinued PROCEDURE TYPE: NM INJECT: PET/CT BODY SCAN. 20.0 mCi F18 FDG. No other medications given.. ADMINISTRATION TIME: 1338 PATIENT DISCHARGED TO: Ambulatory patient, left NM department area. A Diagnostic radioactive procedure has taken place, with no further precautions necessary other than routine body substance precautions. More information regarding radiation safety can be found usingthis link: [email or web address] SIGNATURE: Sudhir ChurchRT(R) PATIENT NAME: Jordan Bennett DATE: June 07, 2023 TIME: 1:49 PM PAGER/CONTACT #: [facility] NoteHNO ID: [id number] Author: Sudhir Church RT(R) Service: ? Author Type: Technologist Type: Progress Notes Filed: 06/07/2023 1:49 PM Note Text: RADIOLOGY SERVICE PROGRESS NOTE SERVICE DATE: 06/07/2023 SERVICE TIME: 1:49 PM PATIENT IDENTITY VERIFICATION COMPLETED USING TWO (2) STANDARD IDENTIFIERS: Name and Date of confirmed by patient verbally FPOST EXAM PIV STATUS: Discontinued PROCEDURE TYPE: NM INJECT: PET/CT BODY SCAN. 20.0 mCi F18 FDG. No other medications given.. ADMINISTRATION TIME: 1338 PATIENT DISCHARGED TO: Ambulatory patient, left NM department area. A Diagnostic radioactive procedure has taken place, with no further precautions necessary other than routine body substance precautions. More information regarding radiation safety can be found using this link: [email or web address] SIGNATURE: Sudhir ChurchRT(R) PATIENT NAME: Jordan Bennett DATE: June 07, 2023 TIME: 1:49 PM PAGER/CONTACT #:[facility]12-22-2023 NoteHNO ID: [id number] Author: Lisa Martinez RN Service: ? Author Type: Registered Nurse Type: Progress Notes Filed: 06/07/2023 1:40 PM Note Text: Radiology Service Progress Note DATE OF SERVICE: June 07, 2023 TIME: 1:40 PM PATIENT IDENTITY VERIFICATION COMPLETED USING TWO (2) STANDARD IDENTIFIERS: Name and Date of confirmed by patient verbally. FALL SCREENING: Has the patient had 2 falls in the last year or 1 fall with injury or currently using an Ambulatory Assistive Device (Walker, Cane, Wheelchair, Crutches, etc.)? No PATIENT GENDER DATA: Male EXAM: CT -CONTRAST INDUCED NEPHROPATHY RISK FACTORS: Not applicable CREATININE: Creatinine Date Value Ref Range Status 05/17/2023 0.95 0.73 - 1.22 mg/dL Final 02/14/2023 1.01 0.73 - 1.22 mg/dL Final 10/31/2022 0.89 0.73 - 1.22 mg/dL Final Estimated Glomerular Filtration Rate Date Value Ref Range Status 05/17/2023 98 >=60 mL/min/1.73m? Final Comment: Estimated Glomerular Filtration Rate (eGFR) is calculated using the 2020 CKD-EPI creatinine equation. This equation utilizes serum creatinine, sex, and age as parameters. The creatinine assay has traceable calibration to isotope dilution-mass spectrometry. Refer to KDIGO guidelines for clinical interpretation. In patients with unstable renal function, e.g. those with acute kidney injury, the eGFR may not accurately reflect actual GFR. P.O.C.T. RESULTS: N/A June 07, 2023 TREATMENT: N/A IV SITE: Ambulatory: A peripheral IV was started in the Right hand with a Angio cath: 22 gauge. IV SITE APPEARANCE: Clean,Dry and Intact SIGNATURE: Lisa Martinez RN PATIENT NAME: Jordan Bennett DATE: June 07, 2023 TIME: 1:40 [facility]12-07-2023 NoteHNO ID: [id number] Author: Jordan Peters MD Service: ? Author Type: Physician Type: Progress Notes Filed: 05/24/2023 8:08 AM Note Text: PATIENT NAME: Jordan Bennett DATE: 05/23/2023 PRIMARY CARE PHYSICIAN: Ashli Ni DO OTHER PHYSICIANS: Dr. Lewis, Dr. Jasso Portions of this encounter note have been copied from the note from 02/14/2023 and has been updated where appropriate, and reflect my current medical decision making from today. CC: This is a 48 year old male with a history of seminoma of the right testicle, seen for scheduled follow-up. INTERIM HISTORY: Since the patient's last visit here he has had no significant medical changes. Currently feels well with no complaints. No abdominal pain or other GI symptoms. No difficulty with urination. MEDICATIONS: Current Outpatient Medications Medication Sig traZODone (DESYREL) 50 mg tablet Take 50 mg by mouth at bedtime as needed. lisinopril (ZESTRIL, PRINIVIL) 20 mg tablet Take 20 mg by mouth once daily. Omeprazole 20 mg TbEC Take by mouth. multivit-min/ferrous fumarate (MULTI VITAMIN ORAL) Refill(s) 0 Zinc 50 mg tab Take by mouth. No current facility-administered medications for this visit. ALLERGIES: ALLERGIES Allergen Reactions Penicillins Rash Shellfish Containin* Other: See Comments PAST MEDICAL HISTORY: PAST MEDICAL HISTORY Diagnosis Date BPH (benign prostatic hyperplasia) Epididymal mass Hematuria Primary hypertension Testicular cancer (HCC) PAST SURGICAL HISTORY: PAST SURGICAL HISTORY Procedure Laterality Date CYSTOSCOPY PAST SURGICAL HISTORY OF Right 08/03/2021 FAMILY HISTORY: FAMILY HISTORY Problem Relation Age of Onset Brain Cancer Father Cancer Paternal Grandfather SOCIAL HISTORY: Social History Tobacco Use Smoking status: Never Smokeless tobacco: Never Vaping Use Vaping Use: Never used Substance Use Topics Alcohol use: Not Currently Drug use: Never COMPLETE REVIEW OF SYSTEMS: CONSTITUTION: Negative for pain, fatigue, weight loss, or appetite loss. EENT: Negative for mouth soreness, antibiotics use, epistaxis, visual problems, neck or facial swelling, fever/chills, bleeding gums, or hearing loss. CV: Negative for edema, calf swelling, palpitations, or chest pain. RESPIRATORY: Negative for cough, SOB, hemoptysis, or wheezing. GI: Negative for nausea/vomiting, heartburn, vomiting blood, dysphasia, diarrhea, blood in stool, constipation, early satiety, PICA, vegetarian, poor nutrition, abdominal fullness, or abdominal pain. NEUROLOGICAL: Negative for numbness/tingling, dizziness, gait disturbance, headache, speech disturbance, tremor, hemiparesis/sensory loss, or change in mental status. MUSCULOSKELETAL: Negative for joint pain, joint swelling, or proximal muscle weakness. SKIN: Negative for hair loss, bruising, nail changes, rash, itching, pallor, or jaundice. ENDO/URO: Negative for hot flashes, cold or heat intolerance, urinary frequency, urinary hesitancy, menorrhagia, or hematuria. PSYCH: Negative for anxiety, depression, or other. PHYSICAL EXAM: BP 148/92 Pulse 69 Temp 36.5 ?C (97.7 ?F) (Temporal) Resp 16 Wt (!) 150.1 kg (331 lb) SpO2 95% BMI 46.17 kg/m? General: Alert and oriented, no distress, pleasant and cooperative. Heart: Regular, normal S1 and S2, no murmurs, rubs, or gallops Lungs: Clear to auscultation bilaterally Abdomen: Benign Extremities: Feet/ankles without edema, posterior tibial pulses full and symmetrical PATHOLOGY: 08/03/2021 Radical right orchiectomy ([facility]) Classic seminoma testicle: 3.2 x 3.0 x 2.5 cm. Intratubular seminoma. The tumor focally invades epididymis and hilar soft tissue. Angiolymphatic invasion is present. The spermatic cord resection margin is free of neoplasm. LABORATORY DATA: Hemoglobin (g/dL) Date Value 05/17/2023 15.2 Hematocrit (%) Date Value 05/17/2023 43.7 WBC (k/uL) Date Value 05/17/2023 7.66 Platelet Count (k/uL) Date Value 05/17/2023 252 RADIOLOGY/OTHER STUDIES: 05/17/2023 CT chest IMPRESSION: 1. Stable CT of the chest. Patchy groundglass opacities in both lower lobes, likely infectious/inflammatory in nature. No new lobar consolidation or pleural effusion. 2. Stable right upper lobe 3 mm nodule. No new or enlarging nodules are seen. 3. Right paratracheal node measuring 1.2 cm in short axis. No bulky intrathoracic adenopathy is visualized. 05/17/2023 CT abdomen/pelvis IMPRESSION: 1. Interval increase in size of aortocaval node, now measuring up to 1.3 cm. Other previously described lymph nodes appear unchanged. No new abdominal or pelvic adenopathy is visualized. 2. No additional findings of abdominal or pelvic metastatic disease. 3. Mild hepatic steatosis. 10/31/2022 CT chest IMPRESSION: 1. Interval resolution of groundglass opacities in the right upper lobe, however there has been interval developm (more content not included)...[facility]12-07-2023 History of Present illness Narrative* Jordan Peters MD - 05/23/2023 7:56 AM EST PATIENT NAME: Jordan Bennett DATE: 05/23/2023 PRIMARY CARE PHYSICIAN: Ashli Ni DO OTHER PHYSICIANS: Dr. Lewis, Dr. Jasso Portions of this encounter note have been copied from the note from 02/14/2023 and has been updated where appropriate, and reflect my current medical decision making from today. CC: This is a 48 year old male with a history of seminoma of the right testicle, seen for scheduledfollow-up. INTERIM HISTORY: Since the patient's last visit here he has had no significant medical changes. Currently feels well with no complaints. No abdominal pain or other GI symptoms. No difficulty with urination. MEDICATIONS: Current Outpatient Medications Medication Sig traZODone (DESYREL) 50 mg tablet Take 50 mg by mouth at bedtime as needed. lisinopril (ZESTRIL, PRINIVIL) 20 mg tablet Take 20 mg by mouth once daily. Omeprazole 20 mg TbEC Take by mouth. multivit-min/ferrous fumarate (MULTI VITAMIN ORAL) Refill(s) 0 Zinc 50 mg tab Take by mouth. No current facility-administered medications for this visit. ALLERGIES: ALLERGIES Allergen Reactions Penicillins Rash Shellfish Containin* Other: See Comments PAST MEDICAL HISTORY: PAST MEDICAL HISTORY Diagnosis Date BPH (benign prostatic hyperplasia) Epididymal mass Hematuria Primary hypertension Testicular cancer (HCC) PAST SURGICAL HISTORY: PAST SURGICAL HISTORY Procedure Laterality Date CYSTOSCOPY PAST SURGICAL HISTORY OF Right 08/03/2021 FAMILY HISTORY: FAMILY HISTORY Problem Relation Age of Onset Brain Cancer Father Cancer Paternal Grandfather SOCIAL HISTORY: Social History Tobacco Use Smoking status: Never Smokeless tobacco: Never Vaping Use Vaping Use: Never used Substance Use Topics Alcohol use: Not Currently Drug use: Never COMPLETE REVIEW OF SYSTEMS: CONSTITUTION: Negative for pain, fatigue, weight loss, or appetite loss. EENT: Negative for mouth soreness, antibiotics use, epistaxis, visual problems, neck or facial swelling, fever/chills, bleeding gums, or hearing loss. CV: Negative for edema, calf swelling, palpitations, or chest pain. RESPIRATORY: Negative for cough, SOB, hemoptysis, or wheezing. GI: Negative for nausea/vomiting, heartburn, vomiting blood, dysphasia, diarrhea, blood in stool, constipation, early satiety, PICA, vegetarian, poor nutrition, abdominal fullness, or abdominal pain. NEUROLOGICAL: Negative for numbness/tingling, dizziness, gait disturbance, headache, speech disturbance, tremor, hemiparesis/sensory loss, or change in mental status. MUSCULOSKELETAL: Negative for joint pain, joint swelling, or proximal muscle weakness. SKIN: Negative for hair loss, bruising, nail changes, rash, itching, pallor, or jaundice. ENDO/URO: Negative for hot flashes, cold or heat intolerance, urinary frequency, urinary hesitancy,menorrhagia, or hematuria. PSYCH: Negative for anxiety, depression, or other. PHYSICAL EXAM: BP 148/92 Pulse 69 Temp 36.5 C (97.7 F) (Temporal) Resp 16 Wt (!) 150.1 kg (331 lb) SpO2 95% BMI 46.17 kg/m General: Alert and oriented, no distress, pleasant and cooperative. Heart: Regular, normal S1 and S2, no murmurs, rubs, or gallops Lungs: Clear to auscultation bilaterally Abdomen: Benign Extremities: Feet/ankles without edema, posterior tibial pulses full and symmetrical PATHOLOGY: 08/03/2021 Radical right orchiectomy ([facility]) Classic seminoma testicle: 3.2 x 3.0 x 2.5 cm. Intratubular seminoma. The tumor focally invades epididymis and hilar soft tissue. Angiolymphatic invasion is present. The spermatic cord resection margin is free of neoplasm. LABORATORY DATA: Hemoglobin (g/dL) Date Value 05/17/2023 15.2 Hematocrit (%) Date Value 05/17/2023 43.7 WBC (k/uL) Date Value 05/17/2023 7.66 Platelet Count (k/uL) Date Value 05/17/2023 252 RADIOLOGY/OTHER STUDIES: 05/17/2023 CT chest IMPRESSION: 1. Stable CT of the chest. Patchy groundglass opacities in both lower lobes, likely infectious/inflammatory in nature. No new lobar consolidation or pleural effusion. 2. Stable right upper lobe 3 mm nodule. No new or enlarging nodules are seen. 3. Right paratracheal node measuring 1.2 cm in short axis. No bulky intrathoracic adenopathy is visualized. 05/17/2023 CT abdomen/pelvis IMPRESSION: 1. Interval increase in size of aortocaval node, now measuring up to 1.3 cm. Other previously described lymph nodes appear unchanged. No new abdominal or pelvic adenopathy is visualized. 2. No additional findings of abdominal or pelvic metastatic disease. 3. Mild hepatic steatosis. 10/31/2022 CT chest IMPRESSION: 1. Interval resolution of groundglass opacities in the right upper lobe, however there has been interval development of new patchy groundglass opacities in both lower lobes. Findings are likely infectious/inflammatory in nature. No evidence of lobar consolidation or pleural effusion. 2. Stable right upper lobe 3 mm nodule. No new or enlarging nodules are visualized. 3. Stable right paratracheal node measuring 1.2 cm in short axis. No new bulky intrathoracic adenopathy is visualized. 10/31/2022 CT abdomen/pelvis IMPRESSION: 1. Slight interval increase in size of aortocaval nodes, nonspecific. Findings may be reactive in nature. Recommend attention to this area on follow-up exams. 2. Stable left external iliac adenopathy. 3. Otherwise, no findings of abdominal or pelvic metastatic disease. 4. Mild hepatic steatosis. 04/03/2022 CT chest IMPRESSION: 1. New mild groundglass opacities in the right upper lobe most likely infectious/inflammatory in etiology. Consider follow-up to complete resolution. 2. Punctate nodular opacity in the right upper lobe, stable and may also be evaluated at follow-up. 3. Nonspecific mild mediastinal lymphadenopathy, stable. 04/03/2022 CT abdomen/pelvis IMPRESSION: 1. No evidence of intra-abdominal/pelvic metastases. No interval change since 09/19/21. 2. Nonspecific borderline left pelvic lymphadenopathy, stable. 3. Diffuse hepatic fatty infiltration. 4. Mild nodular thickening of the left adrenal gland, stable. 09/19/2021 CT chest IMPRESSION: No evidence of intrathoracic metastatic disease. 09/19/2021 CT abdomen/pelvis IMPRESSION: 1. No evidence of abdominal or pelvic metastatic disease. 2. Findings suggestive of mild hepatic steatosis. 3. Stable nodularity in the left adrenal gland, likely representing a small adenoma. 08/17/2021 Chest CTA ([facility]) No evidence of acute or chronic pulmonary embolism. Infectious or inflammatory small airways disease with multifocal tree-in-bud opacities and small areas of nodularity, right greater than left. 06/14/2021 CT abdomen/pelvis ([facility]) No acute abdominal pelvic process. Hepatomegaly and hepatic steatosis. 06/14/2021 Scrotal ultrasound ([facility]) Lesion within the right testicle measuring 2.3 x 3.1 x 1.7 cm concerning for malignancy. ASSESSMENT/PLAN: 1. 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 Status post radical right orchiectomy 08/03/2021. Staging indicated a predicted 15 to 20% risk of recurrence. Postop management options were discussed (adjuvant chemotherapy, adjuvant radiation therapy, active surveillance) and it was elected to proceed with active surveillance per NCCN guidelines. Since initial surgery the patient has had no clinical evidence of recurrent disease. However, most recent staging CT scans 05/17/2023 revealed interval increase in size of an aortocaval node, now measuring up to 1.3 cm. Options were discussed, and we have elected to further stage with a PET scan. I will schedule return for return visit here in 6 weeks for follow-up. 2. Essential hypertension - ICD9: 401.9, ICD10: I10 Stable on current medications, continue per PCP. Jordan Peters MD CC: Dr. Lewis [facility] History of Present illness Narrative* Lisa Martinez RN - 05/17/2023 10:15 AM EST Radiology Service Progress Note DATE OF SERVICE: May 17, 2023 TIME: 10:28 AM PATIENT WEIGHT: 222LBS PATIENT IDENTITY VERIFICATION COMPLETED USING TWO (2) STANDARD IDENTIFIERS: Name and Date of confirmed by patient verbally. FALL SCREENING: Has the patient had 2 falls in the last year or 1 fall with injury or currently using an Ambulatory Assistive Device (Walker, Cane, Wheelchair, Crutches, etc.)? No PATIENT GENDER DATA: Male ALLERGIES: Reviewed and unchanged CONTRAST ALLERGY: No EXAM: CT -CONTRAST INDUCED NEPHROPATHY RISK FACTORS: Not applicable CREATININE: Creatinine Date Value Ref Range Status 02/14/2023 1.01 0.73 - 1.22 mg/dL Final 10/31/2022 0.89 0.73 - 1.22 mg/dL Final 07/09/2022 1.06 0.73 - 1.22 mg/dL Final Estimated Glomerular Filtration Rate Date Value Ref Range Status 02/14/2023 92 >=60 mL/min/1.73m Final Comment: Estimated Glomerular Filtration Rate (eGFR) is calculated using the 2020 CKD-EPI creatinine equation. This equation utilizes serum creatinine, sex, and age as parameters. The creatinine assay has traceable calibration to isotope dilution- mass spectrometry. Refer to KDIGO guidelines for clinical interpretation. In patients with unstable renal function, e.g. those with acute kidney injury, the eGFRmay not accurately reflect actual GFR. P.O.C.T. RESULTS: N/A May 17, 2023 TREATMENT: N/A IV SITE: Ambulatory: A peripheral IV was started in the Right hand with a Angio cath: 20 gauge. IV SITE APPEARANCE: Clean,Dry and Intact SIGNATURE: Lisa Martinez RN PATIENT NAME: Jordan Bennett DATE: May 17, 2023 TIME: 10:28 AM * Sudhir Church RT(R) - 05/17/2023 10:15 AM EST Radiology Service Progress Note PATIENT NAME: Jordan Bennett DATE OF SERVICE: May 17, 2023 TIME: 10:37 AM PATIENT IDENTITY VERIFICATION COMPLETED USING TWO (2) IDENTIFIERS: Name and Date of confirmedby patient verbally. FALL SCREENING: Has the patient had 2 falls in the last year or 1 fall with injury or currently using an Ambulatory Assistive Device (Walker, Cane, Wheelchair, Crutches, etc.)? No PATIENT GENDER DATA: Male PATIENT RELEVANT IMPLANT DATA REVIEWED: Not Applicable RADIOLOGY DEPARTMENT: CT; Exam(s) Completed: Chest Abdomen Pelvis With IV and Oral contrast PERIPHERAL IV DATA: Site assessment: Clean,Dry and Intact, Site disposition Discontinued SIGNED BY: RT Beto(Christiane) May 17, 2023 10:37 AM documented in this encounterSelect [facility] NoteHNO ID: [id number] Author: Sudhir Church RT(R) Service: ? Author Type: Technologist Type: Progress Notes Filed: 05/17/2023 10:37 AM Note Text: Radiology Service Progress Note PATIENT NAME: Jordan Bennett DATE OF SERVICE: May 17, 2023 TIME: 10:37 AM PATIENT IDENTITY VERIFICATION COMPLETED USING TWO (2) IDENTIFIERS: Name and Date of confirmed by patient verbally. FALL SCREENING: Has the patient had 2 falls in the last year or 1 fall with injury or currently using an Ambulatory Assistive Device (Walker, Cane, Wheelchair, Crutches, etc.)? No PATIENT GENDER DATA: Male PATIENT RELEVANT IMPLANT DATA REVIEWED: Not Applicable RADIOLOGY DEPARTMENT: CT; Exam(s) Completed: Chest Abdomen Pelvis With IV and Oral contrast PERIPHERAL IV DATA: Site assessment: Clean,Dry and Intact, Site disposition Discontinued SIGNED BY: RT Beto(R) May 17, 2023 10:37 [facility]12-01-2023 NoteHNO ID: [id number] Author: Lisa Martinez RN Service: ? Author Type: Registered Nurse Type: Progress Notes Filed: 05/17/2023 10:29 AM Note Text: Radiology Service Progress Note DATE OF SERVICE: May 17, 2023 TIME: 10:28 AM PATIENT WEIGHT: 222LBS PATIENT IDENTITY VERIFICATION COMPLETED USING TWO (2) STANDARD IDENTIFIERS: Name and Date of confirmed by patient verbally. FALL SCREENING: Has the patient had 2 falls in the last year or 1 fall with injury or currently using an Ambulatory Assistive Device (Walker, Cane, Wheelchair, Crutches, etc.)? No PATIENT GENDER DATA: Male ALLERGIES: Reviewed and unchanged CONTRAST ALLERGY: No EXAM: CT -CONTRAST INDUCED NEPHROPATHY RISK FACTORS: Not applicable CREATININE: Creatinine Date Value Ref Range Status 02/14/2023 1.01 0.73 - 1.22 mg/dL Final 10/31/2022 0.89 0.73 - 1.22 mg/dL Final 07/09/2022 1.06 0.73 - 1.22 mg/dL Final Estimated Glomerular Filtration Rate Date Value Ref Range Status 02/14/2023 92 >=60 mL/min/1.73m? Final Comment: Estimated Glomerular Filtration Rate (eGFR) is calculated using the 2020 CKD-EPI creatinine equation. This equation utilizes serum creatinine, sex, and age as parameters. The creatinine assay has traceable calibration to isotope dilution-mass spectrometry. Refer to KDIGO guidelines for clinical interpretation. In patients with unstable renal function, e.g. those with acute kidney injury, the eGFR may not accurately reflect actual GFR. P.O.C.T. RESULTS: N/A May 17, 2023 TREATMENT: N/A IV SITE: Ambulatory: A peripheral IV was started in the Right hand with a Angio cath: 20 gauge. IV SITE APPEARANCE: Clean,Dry and Intact SIGNATURE: Lisa Martinez RN PATIENT NAME: Jordan Bennett DATE: May 17, 2023 TIME: 10:28 [facility]09-05-2023 Miscellaneous Notes* Telephone Encounter - Flavio Myers RN - 02/19/2023 8:43 AM EDT VM left with MM message. Pt is encouraged to call for any questions or concerns. Flavio Myers RN * Telephone Encounter - Flavio Myers RN - 02/19/2023 8:43 AM EDT ----- Message from Rosette Gan PA-C sent at 02/19/2023 8:18 AM EDT ----- Please call with negative results documented [facility] History of Present illness Narrative* Rosette Gan PA-C - 02/14/2023 3:00 PM EDT PATIENT NAME: Jordan Bennett DATE: 02/14/2023 PRIMARY CARE PHYSICIAN: Ashli Ni, OTHER PHYSICIANS: Dr. eLwis, Dr. Jasso (Elements copied from Dr. Peters's note dated November 05, 2022, have been reviewed and updated where appropriate, and all reflect current assessment and medical decision making during today's encounter, February 14, 2023) CC: This is a 47 year old male with seminoma of the right testicle, seen for scheduled follow-up. INTERIM HISTORY: Since the patient's last visit he has been doing well. He has adjusted to his CPAPmachine and has noticed an extreme difference in his energy level since using it. He has had no major medical changes. Denies any pain, cough, shortness of breath, or masses. MEDICATIONS: Current Outpatient Medications Medication Sig traZODone (DESYREL) 50 mg tablet Take 50 mg by mouth at bedtime as needed. lisinopril (ZESTRIL, PRINIVIL) 20 mg tablet Take 20 mg by mouth once daily. Omeprazole 20 mg TbEC Take by mouth. multivit-min/ferrous fumarate (MULTI VITAMIN ORAL) Refill(s) 0 Zinc 50 mg tab Take by mouth. No current facility-administered medications for this visit. ALLERGIES: ALLERGIES Allergen Reactions Penicillins Rash Shellfish Containin* Other: See Comments PAST MEDICAL HISTORY: PAST MEDICAL HISTORY Diagnosis Date BPH (benign prostatic hyperplasia) Epididymal mass Hematuria Primary hypertension Testicular cancer (HCC) PAST SURGICAL HISTORY: PAST SURGICAL HISTORY Procedure Laterality Date CYSTOSCOPY PAST SURGICAL HISTORY OF Right 08/03/2021 FAMILY HISTORY: FAMILY HISTORY Problem Relation Age of Onset Brain Cancer Father Cancer Paternal Grandfather SOCIAL HISTORY: Social History Tobacco Use Smoking status: Never Smokeless tobacco: Never Vaping Use Vaping Use: Never used Substance Use Topics Alcohol use: Not Currently Drug use: Never COMPLETE REVIEW OF SYSTEMS: CONSTITUTION: Negative for pain, fatigue, weight loss, or appetite loss. EENT: Negative for mouth soreness, antibiotics use, epistaxis, visual problems, neck or facial swelling, fever/chills, bleeding gums, or hearing loss. CV: Negative for edema, calf swelling, palpitations, or chest pain. RESPIRATORY: Negative for cough, SOB, hemoptysis, or wheezing. GI: Negative for nausea/vomiting, heartburn, vomiting blood, dysphasia, diarrhea, blood in stool, constipation, early satiety, PICA, vegetarian, poor nutrition, abdominal fullness, or abdominal pain. NEUROLOGICAL: Negative for numbness/tingling, dizziness, gait disturbance, headache, speech disturbance, tremor, hemiparesis/sensory loss, or change in mental status. MUSCULOSKELETAL: Negative for joint pain, joint swelling, or proximal muscle weakness. SKIN: Negative for hair loss, bruising, nail changes, rash, itching, pallor, or jaundice. ENDO/URO: Negative for hot flashes, cold or heat intolerance, urinary frequency, urinary hesitancy,menorrhagia, or hematuria. PSYCH: Negative for anxiety, depression, or other. PHYSICAL EXAM: BP 156/89 Pulse 69 Temp 36.3 C (97.4 F) (Temporal) Resp 16 Ht 180.3 cm (5' 11 ) Wt (!) 157.5 kg (347 lb 3.2 oz) SpO2 97% BMI 48.42 kg/m General: Alert and oriented, no distress, pleasant and cooperative. Heart: Regular, normal S1 and S2, no murmurs, rubs, or gallops Lungs: Clear to auscultation bilaterally Abdomen: Benign Extremities: Feet/ankles without edema, posterior tibial pulses full and symmetrical PATHOLOGY: 08/03/2021 Radical right orchiectomy ([facility]) Classic seminoma testicle: 3.2 x 3.0 x 2.5 cm. Intratubular seminoma. The tumor focally invades epididymis and hilar soft tissue. Angiolymphatic invasion is present. The spermatic cord resection margin is free of neoplasm. LABORATORY DATA: Hemoglobin (g/dL) Date Value 02/14/2023 14.8 Hematocrit (%) Date Value 02/14/2023 43.0 WBC (k/uL) Date Value 02/14/2023 7.50 Platelet Count (k/uL) Date Value 02/14/2023 233 RADIOLOGY/OTHER STUDIES: 10/31/2022 CT chest IMPRESSION: 1. Interval resolution of groundglass opacities in the right upper lobe, however there has been interval development of new patchy groundglass opacities in both lower lobes. Findings are likely infectious/inflammatory in nature. No evidence of lobar consolidation or pleural effusion. 2. Stable right upper lobe 3 mm nodule. No new or enlarging nodules are visualized. 3. Stable right paratracheal node measuring 1.2 cm in short axis. No new bulky intrathoracic adenopathy is visualized. 10/31/2022 CT abdomen/pelvis IMPRESSION: 1. Slight interval increase in size of aortocaval nodes, nonspecific. Findings may be reactive in nature. Recommend attention to this area on follow-up exams. 2. Stable left external iliac adenopathy. 3. Otherwise, no findings of abdominal or pelvic metastatic disease. 4. Mild hepatic steatosis. 04/03/2022 CT chest IMPRESSION: 1. New mild groundglass opacities in the right upper lobe most likely infectious/inflammatory in etiology. Consider follow-up to complete resolution. 2. Punctate nodular opacity in the right upper lobe, stable and may also be evaluated at follow-up. 3. Nonspecific mild mediastinal lymphadenopathy, stable. 04/03/2022 CT abdomen/pelvis IMPRESSION: 1. No evidence of intra-abdominal/pelvic metastases. No interval change since 09/19/21. 2. Nonspecific borderline left pelvic lymphadenopathy, stable. 3. Diffuse hepatic fatty infiltration. 4. Mild nodular thickening of the left adrenal gland, stable. 09/19/2021 CT chest IMPRESSION: No evidence of intrathoracic metastatic disease. 09/19/2021 CT abdomen/pelvis IMPRESSION: 1. No evidence of abdominal or pelvic metastatic disease. 2. Findings suggestive of mild hepatic steatosis. 3. Stable nodularity in the left adrenal gland, likely representing a small adenoma. 08/17/2021 Chest CTA ([facility]) No evidence of acute or chronic pulmonary embolism. Infectious or inflammatory small airways disease with multifocal tree-in-bud opacities and small areas of nodularity, right greater than left. 06/14/2021 CT abdomen/pelvis ([facility]) No acute abdominal pelvic process. Hepatomegaly and hepatic steatosis. 06/14/2021 Scrotal ultrasound ([facility]) Lesion within the right testicle measuring 2.3 x 3.1 x 1.7 cm concerning for malignancy. ASSESSMENT/PLAN: 1. 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 Status post radical right orchiectomy 08/03/2021. Staging indicates a predicted 15 to 20% risk of recurrence. Postop management options were discussed (adjuvant chemotherapy, adjuvant radiation therapy, active surveillance) and it was elected to proceed with active surveillance per NCCN guidelines. Since initialsurgery the patient has had no evidence of recurrent disease. Most recent staging CT scans 10/31/2022 negative. At this time we will continue routine surveillance. He will return in 3 months with labs and CT scans. He has a shellfish allergy, but states he tolerates CT dye without issues. 2. Essential hypertension - ICD9: 401.9, ICD10: I10 Stable on current medications, continue per PCP. Rosette Gan PA-C CC: Dr. Lewis documented in this encounterSelect [facility] [place]-17-[facility]23 History of Present illness Narrative* Flavio Myers RN - 10/31/2022 12:15 PM EDT Radiology Service Progress Note DATE OF SERVICE: October 31, 2022 TIME: 12:23 PM PATIENT WEIGHT: 327 LBS PATIENT IDENTITY VERIFICATION COMPLETED USING TWO (2) STANDARD IDENTIFIERS: Name and Date of confirmed by patient verbally. FALL SCREENING: Has the patient had 2 falls in the last year or 1 fall with injury or currently using an Ambulatory Assistive Device (Walker, Cane, Wheelchair, Crutches, etc.)? No PATIENT GENDER DATA: Male ALLERGIES: Reviewed and unchanged CONTRAST ALLERGY: No EXAM: CT -CONTRAST INDUCED NEPHROPATHY RISK FACTORS: Not applicable CREATININE: Creatinine Date Value Ref Range Status 07/09/2022 1.06 0.73 - 1.22 mg/dL Final 04/03/2022 0.88 0.73 - 1.22 mg/dL Final 12/26/2021 0.98 0.73 - 1.22 mg/dL Final Estimated Glomerular Filtration Rate Date Value Ref Range Status 07/09/2022 87 >=60 mL/min/1.73m Final Comment: Estimated Glomerular Filtration Rate (eGFR) is calculated using the 2020 CKD-EPI creatinine equation. This equation utilizes serum creatinine, sex, and age as parameters. The creatinine assay has traceable calibration to isotope dilution- mass spectrometry. Refer to KDIGO guidelines for clinical interpretation. In patients with unstable renal function, e.g. those with acute kidney injury, the eGFRmay not accurately reflect actual GFR. P.O.C.T. RESULTS: N/A October 31, 2022 TREATMENT: N/A IV SITE: Ambulatory: A peripheral IV was started in the Right hand with a Angio cath: 20 gauge. IV SITE APPEARANCE: Clean,Dry and Intact SIGNATURE: Flavio Myers RN PATIENT NAME: Jordan Bennett DATE: October 31, 2022 TIME: 12:23 PM * Sudhir Church RT(R) - 10/31/2022 12:15 PM EDT Radiology Service Progress Note PATIENT NAME: Jordan Bennett DATE OF SERVICE: October 31, 2022 TIME: 12:26 PM PATIENT IDENTITY VERIFICATION COMPLETED USING TWO (2) IDENTIFIERS: Name and Date of confirmedby patient verbally. FALL SCREENING: Has the patient had 2 falls in the last year or 1 fall with injury or currently using an Ambulatory Assistive Device (Walker, Cane, Wheelchair, Crutches, etc.)? No PATIENT GENDER DATA: Male PATIENT RELEVANT IMPLANT DATA REVIEWED: Not Applicable RADIOLOGY DEPARTMENT: CT; Exam(s) Completed: Chest Abdomen Pelvis With IV and Oral contrast PERIPHERAL IV DATA: Site assessment: Clean,Dry and Intact, Site disposition Discontinued SIGNED BY: RT Beto(R) October 31, 2022 12:26 PM documented in this encounterSelect [facility] [place]-23-2023 History of Present illness Narrative* Jordan Peters MD - 07/09/2022 7:51 AM EST PATIENT NAME: Jordan Bennett DATE: 07/09/2022 PRIMARY CARE PHYSICIAN: Ashli Ni DO OTHER PHYSICIANS: Dr. Lewis, Dr. Jasso Portions of this encounter note have been copied from my note from 04/09/2022 and has been updated where appropriate, and reflect my current medical decision making from today. CC: This is a 47 year old male with seminoma of the right testicle, seen for scheduled follow-up. INTERIM HISTORY: Since the patient's last visit here he has had no significant medical changes. Since using CPAP at night for sleep apnea he is sleeping much better and overall feels much better. Currently he feels well with no complaints. No unusual pain. No urinary symptoms. No fevers, night sweats, or weight loss. 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 MEDICATIONS: Current Outpatient Medications Medication Sig lisinopril (ZESTRIL, PRINIVIL) 20 mg tablet Take 20 mg by mouth once daily. Omeprazole 20 mg TbEC Take by mouth. multivit-min/ferrous fumarate (MULTI VITAMIN ORAL) Refill(s) 0 Zinc 50 mg tab Take by mouth. No current facility-administered medications for this visit. ALLERGIES: ALLERGIES Allergen Reactions Penicillins Rash Shellfish Containin* Other: See Comments PAST MEDICAL HISTORY: PAST MEDICAL HISTORY Diagnosis Date BPH (benign prostatic hyperplasia) Epididymal mass Hematuria Primary hypertension Testicular cancer (HCC) PAST SURGICAL HISTORY: PAST SURGICAL HISTORY Procedure Laterality Date CYSTOSCOPY PAST SURGICAL HISTORY OF Right 08/03/2021 FAMILY HISTORY: FAMILY HISTORY Problem Relation Age of Onset Brain Cancer Father Cancer Paternal Grandfather SOCIAL HISTORY: Social History Tobacco Use Smoking status: Never Smokeless tobacco: Never Vaping Use Vaping Use: Never used Substance Use Topics Alcohol use: Not Currently Drug use: Never COMPLETE REVIEW OF SYSTEMS: CONSTITUTION: Negative for pain, fatigue, weight loss, or appetite loss. EENT: Negative for mouth soreness, antibiotics use, epistaxis, visual problems, neck or facial swelling, fever/chills, bleeding gums, or hearing loss. CV: Negative for edema, calf swelling, palpitations, or chest pain. RESPIRATORY: Negative for cough, SOB, hemoptysis, or wheezing. GI: Negative for nausea/vomiting, heartburn, vomiting blood, dysphasia, diarrhea, blood in stool, constipation, early satiety, PICA, vegetarian, poor nutrition, abdominal fullness, or abdominal pain. NEUROLOGICAL: Negative for numbness/tingling, dizziness, gait disturbance, headache, speech disturbance, tremor, hemiparesis/sensory loss, or change in mental status. MUSCULOSKELETAL: Negative for joint pain, joint swelling, or proximal muscle weakness. SKIN: Negative for hair loss, bruising, nail changes, rash, itching, pallor, or jaundice. ENDO/URO: Negative for hot flashes, cold or heat intolerance, urinary frequency, urinary hesitancy,menorrhagia, or hematuria. PSYCH: Negative for anxiety, depression, or other. PHYSICAL EXAM: BP 161/91 Pulse 70 Temp 36.4 C (97.5 F) (Temporal) Resp 16 Wt (!) 150.2 kg (331 lb 3.2 oz) SpO2 96% BMI 46.83 kg/m GENERAL EXAM: Well developed/well nourished; in no acute distress. SKIN: Negative for lesions, rashes, or ulcers on the upper and lower extremities and face. Negativefor palpations/nodules, purpura, and ecchymosis. EENT: Negative for conjunctiva, mucosal pallor, JVD, LAP, thyromegaly, and glossitis. Supple & PERRL. EXTREMITIES: Negative for cyanosis, clubbing, and crepitus. LUNGS: Negative to auscultation, respiratory effort, and percussion. CARDIOVASCULAR: Regular rate. Negative for murmurs/S3S4/abnormal sounds, edema, and carotid bruits. ABDOMEN: Negative for masses, hernia, and spleen/liver abnormalities. RECTAL: Not done PSYCHIATRIC: Negative for mood/affect changes, recent & remote memory changes, and judgement and insight. NEUROLOGICAL: Alert, oriented x person, place, time. Cranial nerves 2-12 intact. Sensory for pain, light touch, vibration intact on all 4 extremities. Reflexes symmetric for biceps/brachioradial/patella/achilles. MUSCULOSKELETAL: Negative examination of joints, bones, muscles/tendons of all four extremities forinspection, percussion, and palpation. Negative for misallignment, asymmetry, crepitation, tenderness, mass, effusions. Range of motion normal. Negative for joint instability, laxity, dislocation. Gait steady. Negative for swelling, erythema, tenderness, soft tissue swelling, and atrophy. LABORATORY DATA: Hemoglobin (g/dL) Date Value 07/09/2022 15.1 Hematocrit (%) Date Value 07/09/2022 43.3 WBC (k/uL) Date Value 07/09/2022 10.54 Platelet Count (k/uL) Date Value 07/09/2022 250 PATHOLOGY: 08/03/2021 Radical right orchiectomy ([facility]) Classic seminoma testicle: 3.2 x 3.0 x 2.5 cm. Intratubular seminoma. The tumor focally invades epididymis and hilar soft tissue. Angiolymphatic invasion is present. The spermatic cord resection margin is free of neoplasm. RADIOLOGY/OTHER STUDIES: 04/03/2022 CT chest IMPRESSION: 1. New mild groundglass opacities in the right upper lobe most likely infectious/inflammatory in etiology. Consider follow-up to complete resolution. 2. Punctate nodular opacity in the right upper lobe, stable and may also be evaluated at follow-up. 3. Nonspecific mild mediastinal lymphadenopathy, stable. 04/03/2022 CT abdomen/pelvis IMPRESSION: 1. No evidence of intra-abdominal/pelvic metastases. No interval change since 09/19/21. 2. Nonspecific borderline left pelvic lymphadenopathy, stable. 3. Diffuse hepatic fatty infiltration. 4. Mild nodular thickening of the left adrenal gland, stable. 09/19/2021 CT chest IMPRESSION: No evidence of intrathoracic metastatic disease. 09/19/2021 CT abdomen/pelvis IMPRESSION: 1. No evidence of abdominal or pelvic metastatic disease. 2. Findings suggestive of mild hepatic steatosis. 3. Stable nodularity in the left adrenal gland, likely representing a small adenoma. 08/17/2021 Chest CTA ([facility]) No evidence of acute or chronic pulmonary embolism. Infectious or inflammatory small airways disease with multifocal tree-in-bud opacities and small areas of nodularity, right greater than left. 06/14/2021 CT abdomen/pelvis ([facility]) No acute abdominal pelvic process. Hepatomegaly and hepatic steatosis. 06/14/2021 Scrotal ultrasound ([facility]) Lesion within the right testicle measuring 2.3 x 3.1 x 1.7 cm concerning for malignancy. ASSESSMENT/PLAN: 1. 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 Status post radical right orchiectomy 08/03/2021. Postop the patient had no evidence of disease, but he is aware that there is a 15 to 20% risk of recurrence. Postop management options were discussed including adjuvant chemotherapy, adjuvant radiation therapy, and active surveillance. After much discussion it was elected to proceed with active surveillance per NCCN guidelines. At this time we will continue close observation as planned. The patient will undergo labs and restaging scans in 3 months, he will then return for follow-up. 2. Essential hypertension - ICD9: 401.9, ICD10: I10 Stable on current medications, continue per PCP. Jordan Peters MD CC: Dr. Lewis documented in this encounterSelect [facility] Evaluation note* Encounter Date Diagnosis Assessment Notes Treatment Notes Treatment Clinical Notes Apr, Obstructive sleep apnea (ICD-10 - G47.33) Fortunately the patient is using and benefiting from treatment by his report. We will get download when he is able to get the chip in, and will assess objectively then. I am hopeful that current settings will have completely controlled his sleep apnea. If there are breakthrough events though this will need to be addressed with setting changes. Assuming that all goes well we will see him back in a year, again provided the download is good Apr, Hypoxia, sleep related (ICD-10 - G47.34) He had nocturnal hypoxia associated with apneic events. If we are able to control the apnea I am hopeful that nocturnal hypoxia would resolve as well. If clinically appropriate we may need to consider home pulse oximetry on CPAP in the future Apr, BMI 45.0-49.9, adult (ICD-10 - Z68.42) Weight reduction is broadly beneficial but is particularly important for control of sleep apnea Apr, Other Call if any questions or problems. Patient is advised to work on healthy diet choices and appropriate servings, weight control, regular exercise as directed, and reduce fat intake. Use machine regularly, and keep up with mask changes as needed. Call if problems with mask toleration, increased sleepiness, or poor response to treatment. . [employer] Other 10-24-2022 History of Present illness Narrative* Jordan Peters MD - 04/09/2022 12:29 PM EDT PATIENT NAME: Jordan Bennett DATE: 04/09/2022 PRIMARY CARE PHYSICIAN: Ashli R Kaftan, DO OTHER PHYSICIANS: Dr. Lewis, Dr. Jasso Portions of this encounter note have been copied from my note from 12/26/2021 and has been updated where appropriate, and reflect my current medical decision making from today. CC: This is a 47 year old male with seminoma of the right testicle, seen for scheduled follow-up. INTERIM HISTORY: Since the patient's last visit here he has been evaluated for sleep apnea. Otherwise he has had no significant medical changes. Currently he feels well with no complaints. No unusualpain. No urinary symptoms. No fevers, night sweats, or weight loss. 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 MEDICATIONS: Current Outpatient Medications Medication Sig lisinopril (ZESTRIL, PRINIVIL) 20 mg tablet Take 20 mg by mouth once daily. Omeprazole 20 mg TbEC Take by mouth. multivit-min/ferrous fumarate (MULTI VITAMIN ORAL) Refill(s) 0 Zinc 50 mg tab Take by mouth. No current facility-administered medications for this visit. ALLERGIES: ALLERGIES Allergen Reactions Penicillins Rash Shellfish Containin* Other: See Comments PAST MEDICAL HISTORY: PAST MEDICAL HISTORY Diagnosis Date BPH (benign prostatic hyperplasia) Epididymal mass Hematuria Primary hypertension Testicular cancer (HCC) PAST SURGICAL HISTORY: PAST SURGICAL HISTORY Procedure Laterality Date CYSTOSCOPY PAST SURGICAL HISTORY OF Right 08/03/2021 FAMILY HISTORY: FAMILY HISTORY Problem Relation Age of Onset Brain Cancer Father Cancer Paternal Grandfather SOCIAL HISTORY: Social History Tobacco Use Smoking status: Never Smokeless tobacco: Never Substance Use Topics Alcohol use: Not Currently COMPLETE REVIEW OF SYSTEMS: CONSTITUTION: Negative for pain, fatigue, weight loss, or appetite loss. EENT: Negative for mouth soreness, antibiotics use, epistaxis, visual problems, neck or facial swelling, fever/chills, bleeding gums, or hearing loss. CV: Negative for edema, calf swelling, palpitations, or chest pain. RESPIRATORY: Negative for cough, SOB, hemoptysis, or wheezing. GI: Negative for nausea/vomiting, heartburn, vomiting blood, dysphasia, diarrhea, blood in stool, constipation, early satiety, PICA, vegetarian, poor nutrition, abdominal fullness, or abdominal pain. NEUROLOGICAL: Negative for numbness/tingling, dizziness, gait disturbance, headache, speech disturbance, tremor, hemiparesis/sensory loss, or change in mental status. MUSCULOSKELETAL: Negative for joint pain, joint swelling, or proximal muscle weakness. SKIN: Negative for hair loss, bruising, nail changes, rash, itching, pallor, or jaundice. ENDO/URO: Negative for hot flashes, cold or heat intolerance, urinary frequency, urinary hesitancy,menorrhagia, or hematuria. PSYCH: Negative for anxiety, depression, or other. PHYSICAL EXAM: BP 145/83 Pulse 70 Temp 36.4 C (97.6 F) (Temporal) Resp 16 Ht 179.1 cm (5' 10.51 ) Wt (!) 145.2 kg (320 lb) SpO2 97% BMI 45.25 kg/m GENERAL EXAM: Well developed/well nourished; in no acute distress. SKIN: Negative for lesions, rashes, or ulcers on the upper and lower extremities and face. Negativefor palpations/nodules, purpura, and ecchymosis. EENT: Negative for conjunctiva, mucosal pallor, JVD, LAP, thyromegaly, and glossitis. Supple & PERRL. EXTREMITIES: Negative for cyanosis, clubbing, and crepitus. LUNGS: Negative to auscultation, respiratory effort, and percussion. CARDIOVASCULAR: Regular rate. Negative for murmurs/S3S4/abnormal sounds, edema, and carotid bruits. ABDOMEN: Negative for masses, hernia, and spleen/liver abnormalities. RECTAL: Not done PSYCHIATRIC: Negative for mood/affect changes, recent & remote memory changes, and judgement and insight. NEUROLOGICAL: Alert, oriented x person, place, time. Cranial nerves 2-12 intact. Sensory for pain, light touch, vibration intact on all 4 extremities. Reflexes symmetric for biceps/brachioradial/patella/achilles. MUSCULOSKELETAL: Negative examination of joints, bones, muscles/tendons of all four extremities forinspection, percussion, and palpation. Negative for misallignment, asymmetry, crepitation, tenderness, mass, effusions. Range of motion normal. Negative for joint instability, laxity, dislocation. Gait steady. Negative for swelling, erythema, tenderness, soft tissue swelling, and atrophy. PATHOLOGY: 08/03/2021 Radical right orchiectomy ([facility]) Classic seminoma testicle: 3.2 x 3.0 x 2.5 cm. Intratubular seminoma. The tumor focally invades epididymis and hilar soft tissue. Angiolymphatic invasion is present. The spermatic cord resection margin is free of neoplasm. RADIOLOGY/OTHER STUDIES: 04/03/2022 CT chest IMPRESSION: 1. New mild groundglass opacities in the right upper lobe most likely infectious/inflammatory in etiology. Consider follow-up to complete resolution. 2. Punctate nodular opacity in the right upper lobe, stable and may also be evaluated at follow-up. 3. Nonspecific mild mediastinal lymphadenopathy, stable. 04/03/2022 CT abdomen/pelvis IMPRESSION: 1. No evidence of intra-abdominal/pelvic metastases. No interval change since 09/19/21. 2. Nonspecific borderline left pelvic lymphadenopathy, stable. 3. Diffuse hepatic fatty infiltration. 4. Mild nodular thickening of the left adrenal gland, stable. 09/19/2021 CT chest IMPRESSION: No evidence of intrathoracic metastatic disease. 09/19/2021 CT abdomen/pelvis IMPRESSION: 1. No evidence of abdominal or pelvic metastatic disease. 2. Findings suggestive of mild hepatic steatosis. 3. Stable nodularity in the left adrenal gland, likely representing a small adenoma. 08/17/2021 Chest CTA ([facility]) No evidence of acute or chronic pulmonary embolism. Infectious or inflammatory small airways disease with multifocal tree-in-bud opacities and small areas of nodularity, right greater than left. 06/14/2021 CT abdomen/pelvis ([facility]) No acute abdominal pelvic process. Hepatomegaly and hepatic steatosis. 06/14/2021 scrotal ultrasound ([facility]) Lesion within the right testicle measuring 2.3 x 3.1 x 1.7 cm concerning for malignancy. ASSESSMENT/PLAN: 1. 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 Status post radical right orchiectomy 08/03/2021. Postop the patient had no evidence of disease, but he is aware that there is a 15 to 20% risk of recurrence. Postop management options were discussed including adjuvant chemotherapy, adjuvant radiation therapy, and active surveillance. After much discussion it was elected to proceed with active surveillance per NCCN guidelines. Most recent labs and scans 04/04/2022 normal. At this time we will continue close observation as planned. The patient will return in 3 months forfollow-up and labs. His next staging scans will be in 6 months (September 2022). 2. Essential hypertension - ICD9: 401.9, ICD10: I10 Stable on current medications, continue per PCP. Jordan Peters MD CC: Dr. Lewis [facility] History of Present illness Narrative* Flavio Myers RN - 04/03/2022 1:30 PM EDT Radiology Service Progress Note DATE OF SERVICE: April 03, 2022 TIME: 1:44 PM PATIENT WEIGHT: 315 LBS PATIENT IDENTITY VERIFICATION COMPLETED USING TWO (2) STANDARD IDENTIFIERS: Name and Date of confirmed by patient verbally. FALL SCREENING: Has the patient had 2 falls in the last year or 1 fall with injury or currently using an Ambulatory Assistive Device (Walker, Cane, Wheelchair, Crutches, etc.)? No PATIENT GENDER DATA: Male ALLERGIES: Reviewed and unchanged CONTRAST ALLERGY: No EXAM: CT -CONTRAST INDUCED NEPHROPATHY RISK FACTORS: Not applicable CREATININE: Creatinine Date Value Ref Range Status 12/26/2021 0.98 0.73 - 1.22 mg/dL Final 09/19/2021 0.84 0.73 - 1.22 mg/dL Final Estimated Glomerular Filtration Rate Date Value Ref Range Status 12/26/2021 96 >=60 mL/min/1.73m Final Comment: Estimated Glomerular Filtration Rate (eGFR) is calculated using the 2020 CKD-EPI creatinine equation. This equation utilizes serum creatinine, sex, and age as parameters. The creatinine assay has traceable calibration to isotope dilution- mass spectrometry. Refer to KDIGO guidelines for clinical interpretation. In patients with unstable renal function, e.g. those with acute kidney injury, the eGFRmay not accurately reflect actual GFR. P.O.C.T. RESULTS: N/A April 03, 2022 TREATMENT: N/A IV SITE: Ambulatory: A peripheral IV was started in the Right hand with a Angio cath: 20 gauge. IV SITE APPEARANCE: Clean,Dry and Intact SIGNATURE: Flavio Myers RN PATIENT NAME: Jordan Bennett DATE: April 03, 2022 TIME: 1:44 PM * Sudhir Church RT(R) - 04/03/2022 1:30 PM EDT Radiology Service Progress Note PATIENT NAME: Jordan Bennett DATE OF SERVICE: April 03, 2022 TIME: 2:15 PM PATIENT IDENTITY VERIFICATION COMPLETED USING TWO (2) IDENTIFIERS: Name and Date of confirmedby patient verbally. FALL SCREENING: Has the patient had 2 falls in the last year or 1 fall with injury or currently using an Ambulatory Assistive Device (Walker, Cane, Wheelchair, Crutches, etc.)? No PATIENT GENDER DATA: Male PATIENT RELEVANT IMPLANT DATA REVIEWED: Not Applicable RADIOLOGY DEPARTMENT: CT; Exam(s) Completed: Chest Abdomen Pelvis With IV and Oral contrast PERIPHERAL IV DATA: Site assessment: Clean,Dry and Intact, Site disposition Discontinued SIGNED BY: RT Beto(R) April 03, 2022 2:15 PM documented in this [facility] [place] History of Present illness Narrative* Jordan Peters MD - 12/26/2021 8:35 AM EDT PATIENT NAME: Jordan Bennett DATE: 12/26/2021 PRIMARY CARE PHYSICIAN: Ashli Ni DO OTHER PHYSICIANS: Dr. Lewis, Dr. Jasso Portions of this encounter note have been copied from my note from 09/26/2021 and has been updated where appropriate, and reflect my current medical decision making from today. CC: This is a 46 year old male with seminoma of the right testicle, seen for scheduled follow-up. INTERIM HISTORY: Since the patient's last visit here he has had no significant medical changes. Currently he feels well with no complaints. No unusual pain. No urinary symptoms. No fevers, night sweats, or weight loss. 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 MEDICATIONS: Current Outpatient Medications Medication Sig lisinopril (ZESTRIL, PRINIVIL) 20 mg tablet Take 20 mg by mouth once daily. Omeprazole 20 mg TbEC Take by mouth. multivit-min/ferrous fumarate (MULTI VITAMIN ORAL) Refill(s) 0 Zinc 50 mg tab Take by mouth. No current facility-administered medications for this visit. ALLERGIES: ALLERGIES Allergen Reactions Penicillins Rash Shellfish Containin* Other: See Comments PAST MEDICAL HISTORY: PAST MEDICAL HISTORY Diagnosis Date BPH (benign prostatic hyperplasia) Epididymal mass Hematuria Primary hypertension Testicular cancer (HCC) PAST SURGICAL HISTORY: PAST SURGICAL HISTORY Procedure Laterality Date CYSTOSCOPY PAST SURGICAL HISTORY OF Right 08/03/2021 FAMILY HISTORY: FAMILY HISTORY Problem Relation Age of Onset Brain Cancer Father Cancer Paternal Grandfather SOCIAL HISTORY: Social History Tobacco Use Smoking status: Never Smoker Smokeless tobacco: Never Used Substance Use Topics Alcohol use: Not Currently Drug use: Not on file COMPLETE REVIEW OF SYSTEMS: CONSTITUTION: Negative for pain, fatigue, weight loss, or appetite loss. EENT: Negative for mouth soreness, antibiotics use, epistaxis, visual problems, neck or facial swelling, fever/chills, bleeding gums, or hearing loss. CV: Negative for edema, calf swelling, palpitations, or chest pain. RESPIRATORY: Negative for cough, SOB, hemoptysis, or wheezing. GI: Negative for nausea/vomiting, heartburn, vomiting blood, dysphasia, diarrhea, blood in stool, constipation, early satiety, PICA, vegetarian, poor nutrition, abdominal fullness, or abdominal pain. NEUROLOGICAL: Negative for numbness/tingling, dizziness, gait disturbance, headache, speech disturbance, tremor, hemiparesis/sensory loss, or change in mental status. MUSCULOSKELETAL: Negative for joint pain, joint swelling, or proximal muscle weakness. SKIN: Negative for hair loss, bruising, nail changes, rash, itching, pallor, or jaundice. ENDO/URO: Negative for hot flashes, cold or heat intolerance, urinary frequency, urinary hesitancy,menorrhagia, or hematuria. PSYCH: Negative for anxiety, depression, or other. PHYSICAL EXAM: BP 157/90 Pulse 66 Temp 36.4 C (97.5 F) (Temporal) Resp 18 Ht 179.1 cm (5' 10.51 ) Wt (!) 144.9 kg (319 lb 6.4 oz) SpO2 97% BMI 45.17 kg/m GENERAL EXAM: Well developed/well nourished; in no acute distress. SKIN: Negative for lesions, rashes, or ulcers on the upper and lower extremities and face. Negativefor palpations/nodules, purpura, and ecchymosis. EENT: Negative for conjunctiva, mucosal pallor, JVD, LAP, thyromegaly, and glossitis. Supple & PERRL. EXTREMITIES: Negative for cyanosis, clubbing, and crepitus. LUNGS: Negative to auscultation, respiratory effort, and percussion. CARDIOVASCULAR: Regular rate. Negative for murmurs/S3S4/abnormal sounds, edema, and carotid bruits. ABDOMEN: Negative for masses, hernia, and spleen/liver abnormalities. RECTAL: Not done PSYCHIATRIC: Negative for mood/affect changes, recent & remote memory changes, and judgement and insight. NEUROLOGICAL: Alert, oriented x person, place, time. Cranial nerves 2-12 intact. Sensory for pain, light touch, vibration intact on all 4 extremities. Reflexes symmetric for biceps/brachioradial/patella/achilles. MUSCULOSKELETAL: Negative examination of joints, bones, muscles/tendons of all four extremities forinspection, percussion, and palpation. Negative for misallignment, asymmetry, crepitation, tenderness, mass, effusions. Range of motion normal. Negative for joint instability, laxity, dislocation. Gait steady. Negative for swelling, erythema, tenderness, soft tissue swelling, and atrophy. PATHOLOGY: 08/03/2021 Radical right orchiectomy ([facility]) Classic seminoma testicle: 3.2 x 3.0 x 2.5 cm. Intratubular seminoma. The tumor focally invades epididymis and hilar soft tissue. Angiolymphatic invasion is present. The spermatic cord resection margin is free of neoplasm. RADIOLOGY/OTHER STUDIES: 09/19/2021 CT chest IMPRESSION: No evidence of intrathoracic metastatic disease. 09/19/2021 CT abdomen/pelvis IMPRESSION: 1. No evidence of abdominal or pelvic metastatic disease. 2. Findings suggestive of mild hepatic steatosis. 3. Stable nodularity in the left adrenal gland, likely representing a small adenoma. 08/17/2021 Chest CTA ([facility]) No evidence of acute or chronic pulmonary embolism. Infectious or inflammatory small airways disease with multifocal tree-in-bud opacities and small areas of nodularity, right greater than left. 06/14/2021 CT abdomen/pelvis ([facility]) No acute abdominal pelvic process. Hepatomegaly and hepatic steatosis. 06/14/2021 scrotal ultrasound ([facility]) Lesion within the right testicle measuring 2.3 x 3.1 x 1.7 cm concerning for malignancy. ASSESSMENT/PLAN: 1. 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 Status post radical right orchiectomy 08/03/2021. Postop the patient had no evidence of disease, but he is aware that there is a 15 to 20% risk of recurrence. Postop management options were discussed including adjuvant chemotherapy, adjuvant radiation therapy, and active surveillance. After much discussion it was elected to proceed with active surveillance per NCCN guidelines. Most recent labs and scans 09/19/2021 normal. At this time we will continue close observation as planned. We will obtain labs and scans in 3 months, the patient will then return for follow-up. 2. Essential hypertension - ICD9: 401.9, ICD10: I10 Stable on current medications, continue per PCP. Jordan Peters MD CC: Dr. Lewis documented in this [facility] Hospital Discharge instructions Patient Education 11/27/2021 16:46:36 Calorie Counting for Weight Loss Calorie Counting for Weight Loss Calories are units of energy. Your body needs a certain amount of calories from food to keep you going throughout the day. When you eat more calories than your body needs, your body stores the extra calories as fat. When you eat fewer calories than your body needs, your body bronson fat to get the energy it needs. Calorie counting means keeping track of how many calories you eat and drink each day. Calorie counting can be helpful if you need to lose weight. If you make sure to eat fewer calories than your bodyneeds, you should lose weight. Ask your health care provider what a healthy weight is for you. For calorie counting to work, you will need to eat the right number of calories in a day in order to lose a healthy amount of weight per week. A dietitian can help you determine how many calories youneed in a day and will give you suggestions on how to reach your calorie goal. A healthy amount of weight to lose per week is usually 1 2 lb (0.5 0.9 kg). This usually means thatyour daily calorie intake should be reduced by 500 750 calories. Eating 1,200 1,500 calories per day can help most women lose weight. Eating 1,500 1,800 calories per day can help most men lose weight. What is my plan? My goal is to have calories per day. If I have this many calories per day, I should lose around pounds per week. What do I need to know about calorie counting? In order to meet your daily calorie goal, you will need to: Find out how many calories are in each food you would like to eat. Try to do this before you eat. Decide how much of the food you plan to eat. Write down what you ate and how many calories it had. Doing this is called keeping a food log. To successfully lose weight, it is important to balance calorie counting with a healthy lifestyle that includes regular activity. Aim for 150 minutes of moderate exercise (such as walking) or 75 minutes of vigorous exercise (such as running) each week. Where do I find calorie information? The number of calories in a food can be found on a Nutrition Facts label. If a food does not have aNutrition Facts label, try to look up the calories online or ask your dietitian for help. Remember that calories are listed per serving. If you choose to have more than one serving of a food, you will have to multiply the calories per serving by the amount of servings you plan to eat. Forexample, the label on a package of bread might say that a serving size is 1 slice and that there are 90 calories in a serving. If you eat 1 slice, you will have eaten 90 calories. If you eat 2 slices, you will have eaten 180 calories. How do I keep a food log? Immediately after each meal, record the following information in your food log: What you ate. Don't forget to include toppings, sauces, and other extras on the food. How much you ate. This can be measured in cups, ounces, or number of items. How many calories each food and drink had. The total number of calories in the meal. Keep your food log near you, such as in a small notebook in your pocket, or use a mobile aron or website. Some programs will calculate calories for you and show you how many calories you have left forthe day to meet your goal. What are some calorie counting tips? Use your calories on foods and drinks that will fill you up and not leave you hungry: ?Some examples of foods that fill you up are nuts and nut butters, vegetables, lean proteins, and high-fiber foods like whole grains. High-fiber foods are foods with more than 5 g fiber per serving. ?Drinks such as sodas, specialty coffee drinks, alcohol, and juices have a lot of calories, yet do not fill you up. Eat nutritious foods and avoid empty calories. Empty calories are calories you get from foods or beverages that do not have many vitamins or protein, such as candy, sweets, and soda. It is better to have a nutritious high-calorie food (such as an avocado) than a food with few nutrients (such as a bag of chips). Know how many calories are in the foods you eat most often. This will help you calculate calorie counts faster. Pay attention to calories in drinks. Low-calorie drinks include water and unsweetened drinks. Pay attention to nutrition labels for low fat or fat free foods. These foods sometimes have thesame amount of calories or more calories than the full fat versions. They also often have added sugar, starch, or salt, to make up for flavor that was removed with the fat. Find a way of tracking calories that works for you. Get creative. Try different apps or programs ifwriting down calories does not work for you. What are some portion control tips? Know how many calories are in a serving. This will help you know how many servings of a certain food you can have. Use a measuring cup to measure serving sizes. You could also try weighing out portions on a kitchenscale. With time, you will be able to estimate serving sizes for some foods. Take some time to put servings of different foods on your favorite plates, bowls, and cups so you know what a serving looks like. Try not to eat straight from a bag or box. Doing this can lead to overeating. Put the amount you would like to eat in a cup or on a plate to make sure you are eating the right portion. Use smaller plates, glasses, and bowls to prevent overeating. Try not to multitask (for example, watch TV or use your computer) while eating. If it is time to eat, sit down at a table and enjoy your food. This will help you to know when you are full. It will also help you to be aware of what you are eating and how much you are eating. What are tips for following this plan? Reading food labels Check the calorie count compared to the serving size. The serving size may be smaller than what youare used to eating. Check the source of the calories. Make sure the food you are eating is high in vitamins and proteinand low in saturated and trans fats. Shopping Read nutrition labels while you shop. This will help you make healthy decisions before you decide to purchase your food. Make a grocery list and stick to it. Cooking Try to cook your favorite foods in a healthier way. For example, try baking instead of frying. Use low-fat dairy products. Meal planning Use more fruits and vegetables. Half of your plate should be fruits and vegetables. Include lean proteins like poultry and fish. How do I count calories when eating out? Ask for smaller portion sizes. Consider sharing an entree and sides instead of getting your own entree. If you get your own entree, eat only half. Ask for a box at the beginning of your meal and put the rest of your entree in it so you are not tempted to eat it. If calories are listed on the menu, choose the lower calorie options. Choose dishes that include vegetables, fruits, whole grains, low-fat dairy products, and lean protein. Choose items that are boiled, broiled, grilled, or steamed. Stay away from items that are buttered,battered, fried, or served with cream sauce. Items labeled crispy are usually fried, unless stated otherwise. Choose water, low-fat milk, unsweetened iced tea, or other drinks without added sugar. If you want an alcoholic beverage, choose a lower calorie option such as a glass of wine or light beer. Ask for dressings, sauces, and syrups on the side. These are usually high in calories, so you should limit the amount you eat. If you want a salad, choose a garden salad and ask for grilled meats. Avoid extra toppings like dougherty, cheese, or fried items. Ask for the dressing on the side, or ask for olive oil and vinegar or lemon to use as dressing. Estimate how many servings of a food you are given. For example, a serving of cooked rice is cup orabout the size of half a baseball. Knowing serving sizes will help you be aware of how much food you are eating at restaurants. The list below tells you how big or small some common portion sizes arebased on everyday objects: ?1 oz 4 stacked dice. ?3 oz 1 deck of cards. ?1 tsp 1 . ?1 Tbsp a ping-pong ball. ?2 Tbsp 1 ping-pong ball. ? cup baseball. ?1 cup 1 baseball. Summary Calorie counting means keeping track of how many calories you eat and drink each day. If you eat fewer calories than your body needs, you should lose weight. A healthy amount of weight to lose per week is usually 1 2 lb (0.5 0.9 kg). This usually means reducing your daily calorie intake by 500 750 calories. The number of calories in a food can be found on a Nutrition Facts label. If a food does not have aNutrition Facts label, try to look up the calories online or ask your dietitian for help. Use your calories on foods and drinks that will fill you up, and not on foods and drinks that will leave you hungry. Use smaller plates, glasses, and bowls to prevent overeating. This information is not intended to replace advice given to you by your health care provider. Make sure you discuss any questions you have with your health care provider. Document Released: 06/03/2006 Document Revised: 02/20/2019 Document Reviewed: 05/03/2017 [employer] Patient Education 2020 [employer]. 11/27/2021 16:46:26 Testicular Cancer Testicular Cancer Testicular cancer is the presence of a cancerous (malignant) tumor in one or both of the male sex glands that produce testosterone and sperm (testicles). A tumor is an abnormal growth of cells and tissue. Testicular cancer is the most common cancer in men 20 45 years old. What are the causes? The cause of this condition is not known. What increases the risk? The following factors may make you more likely to develop this condition: Having had an undescended testicle. Having had abnormal development of the testicles. Having had testicular cancer in the past. Having a family history of testicular cancer, especially a father or brother. Having Klinefelter syndrome. This is a condition in which a male child shows some female characteristics. Being white. Having HIV infection. What are the signs or symptoms? Symptoms of this condition include: Swelling of the scrotum. A change in how your testicle feel. A painless bump or swelling in the testicle. Dull ache in the lower abdomen. Pain or discomfort in the testicles or scrotum. Sudden buildup of fluid in the scrotum. Growth of breast tissue. The breast area may feel painful or sore. Advanced symptoms of the condition include: Lower back pain. Shortness of breath. Chest pain. A cough. Abdominal pain. Headache. Feeling confused. How is this diagnosed? This condition is diagnosed based on your medical history and a physical exam, which will include checking your testicles for lumps, swelling, or pain. You may also have tests done, including: Testicle ultrasonogram. A blood test that looks for substances that are linked to specific types of cancer (serum tumor marker test). A biopsy to remove the entire testicle in order to test it for cancer cells (radical inguinal orchiectomy and biopsy). Imaging tests such as a CT scan, MRI, or bone scan. If testicular cancer is confirmed, it will be staged to determine its severity and extent. Staging is an assessment of: The size of the tumor. Whether or not the cancer has spread. Where the cancer has spread. How is this treated? Once your cancer has been diagnosed and staged, you should discuss a treatment plan with your health care provider. Based on the stage of the cancer, one treatment or a combination of treatments may be recommended. The most common forms of treatment are: Surgery. Radiation therapy. Chemotherapy. High-dose chemotherapy followed by stem cell transplant. Certain treatments for testicular cancer can cause infertility, a condition that could become permanent. Talk to your health care provider about the risks of treatment and your options if you want tohave children. Follow these instructions at home: Take qpts-dol-kjaxmtb and prescription medicines only as told by your health care provider. Maintain a healthy diet. Talk with your dietitian, or your health care provider, about what dietarychoices are best for you. If you have to go to the hospital, let your cancer specialist know. Consider joining a support group. This may help you learn to cope with the stress of having testicular cancer. Seek advice to help you manage treatment side effects. Keep all follow-up visits as told by your health care provider. This is important. Contact a health care provider if: You have a dull ache in your lower abdomen or groin. You have a sudden buildup of fluid in your scrotum. You have new symptoms such as headache, abdominal pain, or lower back pain. Get help right away if: You have an increase in pain, discomfort, or swelling in your testicle or scrotum. You have a cough, shortness of breath, or chest pain. You feel confused. Summary Testicular cancer is the presence of a cancerous (malignant) tumor in one or both of the male sex glands that produce testosterone and sperm (testicles). Once your testicular cancer has been diagnosed and staged, you should discuss a treatment plan withyour health care provider. Based on the stage of the cancer, one treatment or a combination of treatments may be recommended. The most common forms of treatment are: surgery, radiation therapy, chemotherapy, and high-dose chemotherapy followed by stem cell transplant. This information is not intended to replace advice given to you by your health care provider. Make sure you discuss any questions you have with your health care provider. Document Released: 04/26/2006 Document Revised: 09/24/2019 Document Reviewed: 08/30/2017 [employer] Patient Education 2019 Hobby. Follow Up Care 11/02/2021 10:22:34 With:DEBBIE DELUCA, Chantal Grande, URL Address: [facility] [address] [place] [address]- [phone] When: Unknown [facility] 04-12-2022 History of Present illness Narrative* Jordan Peters MD - 09/26/2021 8:40 AM EDT PATIENT NAME: Jordan Bennett DATE: 09/26/2021 PRIMARY CARE PHYSICIAN: Ashli Ni DO OTHER PHYSICIANS: Dr. Lewis, Dr. Jasso Portions of this encounter note have been copied from my note from 08/29/2021 and has been updated where appropriate, and reflect my current medical decision making from today. 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 INTERIM HISTORY: Since the patient's initial visit here he has had no significant medical changes. Currently feels well with no complaints. MEDICATIONS: Current Outpatient Medications Medication Sig lisinopril (ZESTRIL, PRINIVIL) 20 mg tablet Take 20 mg by mouth once daily. Omeprazole 20 mg TbEC Take by mouth. multivit-min/ferrous fumarate (MULTI VITAMIN ORAL) Refill(s) 0 Zinc 50 mg tab Take by mouth. No current facility-administered medications for this visit. ALLERGIES: ALLERGIES Allergen Reactions Penicillins Rash Shellfish Containin* Other: See Comments PAST MEDICAL HISTORY: PAST MEDICAL HISTORY Diagnosis Date BPH (benign prostatic hyperplasia) Epididymal mass Hematuria Primary hypertension Testicular cancer (HCC) PAST SURGICAL HISTORY: PAST SURGICAL HISTORY Procedure Laterality Date CYSTOSCOPY PAST SURGICAL HISTORY OF Right 08/03/2021 FAMILY HISTORY: FAMILY HISTORY Problem Relation Age of Onset Brain Cancer Father Cancer Paternal Grandfather SOCIAL HISTORY: Social History Tobacco Use Smoking status: Never Smoker Smokeless tobacco: Never Used Substance Use Topics Alcohol use: Not Currently Drug use: Not on file COMPLETE REVIEW OF SYSTEMS: CONSTITUTION: Negative for pain, fatigue, weight loss, or appetite loss. EENT: Negative for mouth soreness, antibiotics use, epistaxis, visual problems, neck or facial swelling, fever/chills, bleeding gums, or hearing loss. CV: Negative for edema, calf swelling, palpitations, or chest pain. RESPIRATORY: Negative for cough, SOB, hemoptysis, or wheezing. GI: Negative for nausea/vomiting, heartburn, vomiting blood, dysphasia, diarrhea, blood in stool, constipation, early satiety, PICA, vegetarian, poor nutrition, abdominal fullness, or abdominal pain. NEUROLOGICAL: Negative for numbness/tingling, dizziness, gait disturbance, headache, speech disturbance, tremor, hemiparesis/sensory loss, or change in mental status. MUSCULOSKELETAL: Negative for joint pain, joint swelling, or proximal muscle weakness. SKIN: Negative for hair loss, bruising, nail changes, rash, itching, pallor, or jaundice. ENDO/URO: Negative for hot flashes, cold or heat intolerance, urinary frequency, urinary hesitancy,menorrhagia, or hematuria. PSYCH: Negative for anxiety, depression, or other. PHYSICAL EXAM: BP 169/106 Pulse 72 Temp 36.6 C (97.8 F) (Temporal) Resp 18 Ht 179.1 cm (5' 10.51 ) Wt (!) 145.2 kg (320 lb) SpO2 97% BMI 45.25 kg/m GENERAL EXAM: Well developed/well nourished; in no acute distress. SKIN: Negative for lesions, rashes, or ulcers on the upper and lower extremities and face. Negativefor palpations/nodules, purpura, and ecchymosis. EENT: Negative for conjunctiva, mucosal pallor, JVD, LAP, thyromegaly, and glossitis. Supple & PERRL. EXTREMITIES: Negative for cyanosis, clubbing, and crepitus. LUNGS: Negative to auscultation, respiratory effort, and percussion. CARDIOVASCULAR: Regular rate. Negative for murmurs/S3S4/abnormal sounds, edema, and carotid bruits. ABDOMEN: Negative for masses, hernia, and spleen/liver abnormalities. RECTAL: Not done PSYCHIATRIC: Negative for mood/affect changes, recent & remote memory changes, and judgement and insight. NEUROLOGICAL: Alert, oriented x person, place, time. Cranial nerves 2-12 intact. Sensory for pain, light touch, vibration intact on all 4 extremities. Reflexes symmetric for biceps/brachioradial/patella/achilles. MUSCULOSKELETAL: Negative examination of joints, bones, muscles/tendons of all four extremities forinspection, percussion, and palpation. Negative for misallignment, asymmetry, crepitation, tenderness, mass, effusions. Range of motion normal. Negative for joint instability, laxity, dislocation. Gait steady. Negative for swelling, erythema, tenderness, soft tissue swelling, and atrophy. PATHOLOGY: 08/03/2021 Radical right orchiectomy ([facility]) Classic seminoma testicle: 3.2 x 3.0 x 2.5 cm. Intratubular seminoma. The tumor focally invades epididymis and hilar soft tissue. Angiolymphatic invasion is present. The spermatic cord resection margin is free of neoplasm. RADIOLOGY/OTHER STUDIES: 09/19/2021 CT chest IMPRESSION: No evidence of intrathoracic metastatic disease. 09/19/2021 CT abdomen/pelvis IMPRESSION: 1. No evidence of abdominal or pelvic metastatic disease. 2. Findings suggestive of mild hepatic steatosis. 3. Stable nodularity in the left adrenal gland, likely representing a small adenoma. 08/17/2021 Chest CTA ([facility]) No evidence of acute or chronic pulmonary embolism. Infectious or inflammatory small airways disease with multifocal tree-in-bud opacities and small areas of nodularity, right greater than left. 06/14/2021 CT abdomen/pelvis ([facility]) No acute abdominal pelvic process. Hepatomegaly and hepatic steatosis. 06/14/2021 scrotal ultrasound ([facility]) Lesion within the right testicle measuring 2.3 x 3.1 x 1.7 cm concerning for malignancy. ASSESSMENT/PLAN: 1. 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 Status post radical right orchiectomy 08/03/2021. Currently the patient is cancer free, but he is aware that there is a 15 to 20% risk of recurrence. Postop management options were discussed including adjuvant chemotherapy, adjuvant radiation therapy, and active surveillance. Plans were to proceed with active surveillance per NCCN guidelines. Most recent labs and scans 09/19/2021 normal. Currently no evidence ofdisease. At this time we will continue close observation as planned. I will see him back in 3 months for follow-up and labs. We will restage again with CT scans in 6 months. 2. Essential hypertension - ICD9: 401.9, ICD10: I10 Stable on current medications, continue per PCP. Jordan Peters MD CC: Dr. Lewis [facility] History of Present illness Narrative* Janee Raines RN - 09/19/2021 2:15 PM EDT Radiology Service Progress Note DATE OF SERVICE: September 19, 2021 TIME: 2:40 PM PATIENT WEIGHT: 319LBS PATIENT IDENTITY VERIFICATION COMPLETED USING TWO (2) STANDARD IDENTIFIERS: Name and Date of confirmed by patient verbally. FALL SCREENING: Has the patient had 2 falls in the last year or 1 fall with injury or currently using an Ambulatory Assistive Device (Walker, Cane, Wheelchair, Crutches, etc.)? No PATIENT GENDER DATA: Male ALLERGIES: Reviewed and unchanged CONTRAST ALLERGY: No EXAM: CT -CONTRAST INDUCED NEPHROPATHY RISK FACTORS: Not applicable CREATININE: No results found for: CREAT, EGFROTH, EGFRAA P.O.C.T. RESULTS: N/A September 19, 2021 TREATMENT: N/A IV SITE: Ambulatory: A peripheral IV was started in the Right hand with a Angio cath: 20 gauge. IV SITE APPEARANCE: Clean,Dry and Intact SIGNATURE: Janee Raines RN PATIENT NAME: Jordan Bennett DATE: September 19, 2021 TIME: 2:40 PM * Sudhir Church RT(R) - 09/19/2021 2:15 PM EDT Radiology Service Progress Note PATIENT NAME: Jordan Bennett DATE OF SERVICE: September 19, 2021 TIME: 3:10 PM PATIENT IDENTITY VERIFICATION COMPLETED USING TWO (2) IDENTIFIERS: Name and Date of confirmedby patient verbally. FALL SCREENING: Has the patient had 2 falls in the last year or 1 fall with injury or currently using an Ambulatory Assistive Device (Walker, Cane, Wheelchair, Crutches, etc.)? No PATIENT GENDER DATA: Male PATIENT RELEVANT IMPLANT DATA REVIEWED: Not Applicable RADIOLOGY DEPARTMENT: CT; Exam(s) Completed: Chest Abdomen Pelvis PERIPHERAL IV DATA: Site assessment: Clean,Dry and Intact, Site disposition Discontinued SIGNED BY: RT Beto(Christiane) September 19, 2021 3:10 PM documented in this encounter[facility] Miscellaneous Notes* Telephone Encounter - September - 12/20/2021 9:58 AM EDT Patient coming in to see you on Saturday12/26/21 for follow up with labs. Please add lab orders. Thanks, Ellyn Nguyen MA documented in this encounterSelect [facility] NotePROCEDURE: CTA CHEST WO W CON REASON FOR STUDY/Clinical History: Chest pain, evaluate for PE COMPARISON STUDY: None available at time of dictation. CT ANGIO CHEST WITH CONTRAST: TECHNIQUE: Volumetric data acquisition of chest was obtained following intravenous administration of100 mL Omnipaque 350 intravenous contrast without any reported adverse effects. Axial images were reconstructed; sagittal and coronal images were reformatted. 3-D images were rendered on a separate [employer] workstation. Images were reviewed PACS. Dose reduction techniques were achieved by using automated exposure control and/or adjustment of mA and/or kV according to patient size and/or use of iterative reconstruction technique. FINDINGS: Pulmonary Arteries: There are no filling defects within main, lobar, segmental and visualized subsegmental branch pulmonary arteries. There is normal dimensional of main PA. Lungs: There is no peripheral pulmonary infarction, consolidation, pleural effusion, or right heart strain. There is no pneumothorax or pneumomediastinum. There is mild edema appreciated and scattered bronchial thickening can be noted. There are bibasilar areas of atelectasis or subtle infiltrate, and there are multiple areas of tree-in-bud opacity appreciated in the right superior thorax, as seen on images 27 extending to image 48 of series 4 with small nodules measuring up to approximately 8 mm not entirely excluded although these findings are likely due to inflammatory change. Similar findings on the left on images 41 extending to image 51 series 4. Posttreatment follow-up imaging should be obtained to exclude underlying nodules in these regions. Aorta and Vasculature: There is normal caliber of thoracic aorta without evidence of aortic dissection, intramural hematoma or aneurysm. Lymph Nodes: There is no pathologically appearing or significant intrathoracic or axillary lymphadenopathy on CT size criteria. Lower Neck: Visualized portions of the thyroid gland are unremarkable. Mediastinum: Heart size is normal. There is no pericardial effusion. The esophagus is unremarkable. Musculoskeletal: No aggressive focal bony lesions, acute fractures or dislocation. Spurring and degenerative change of the thoracic spine is noted, particularly on the right and there is a mild rightward thoracic scoliotic curvature appreciated at T7 T8 8. Chest wall: Unremarkable Partially visualized upper abdomen demonstrates no acute process. Mild hepatic steatosis is suggested. IMPRESSION: No evidence of acute or chronic pulmonary embolism. Infectious or inflammatory small airways disease with multifocal tree-in-bud opacities and small areas of nodularity, right greater than left as above. Consider posttreatment follow-up imaging to exclude underlying nodules in these regions. Electronically authenticated by: EVELYN CUEVAS Date: 2021-08-17 16:31[facility]02-16-[facility] NoteEXAMINATION: XR CHEST 2 V HISTORY: Pre-surgery evaluation COMPARISON: No relevant comparison available. TECHNIQUE: PA and lateral FINDINGS: LUNGS: No significant pulmonary parenchymal abnormalities. VASCULATURE: No increased pulmonary vasculature. PLEURA: No pneumothorax, effusion, or pleural thickening. CARDIAC: No cardiomegaly or cardiac silhouette abnormality. MEDIASTINUM: No visible mass or adenopathy. BONES: No fracture or visible bone lesion. OTHER: Negative. IMPRESSION: No acute disease. Electronically authenticated by: KRYS ASHER Date: 2021-08-02 16:17[facility]11-09-2021 Evaluation note* Encounter Date Diagnosis Assessment Notes Treatment Notes Treatment Clinical Notes Apr, Right shoulder tendonitis (ICD-10 - M77.8) Patient is progressing well at this time. Continue gentle motion and strengthening exercises. Formal therapy order provided. Call with questions/concerns. [employer] Other 10-05-2021 Evaluation note* Encounter Date Diagnosis Assessment Notes Treatment Notes Treatment Clinical Notes Mar, Acute pain of right shoulder (ICD-10 - M25.511) Mar, Right shoulder tendonitis (ICD-10 - M77.8) Radiographs reviewed with patient. This appears to be pain secondary to subacromial bursitis / rotator cuff tendonitis. We discussed and demonstrated gentle motion exercise and rotator cuff strengthening exercise. Discussed the use of non-steroidal anti-inflammatory medication. Stressed importance of maintaining mobilitiy to avoid development of adhesive capsulitis. Instructed on use of heat prior to motion exercise. May consider physical therapy in the future if not improving. A marcaine / kenalog cortisone injection was performed into the subacromial space under sterile technique. Patient tolerated the injection well with no adverse reaction. Instructed on proper body mechanics to avoid further irritaiton. If no improvement with conservative treatment, may consider MRI for further evaluation. 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 [facility]* Diagnosis 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 [facility] noteNo assessment information availableK[facility] Work Phone: Evaluation note* Diagnosis 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 Essential hypertension Unspecified essential hypertension [facility] Diagnosis 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 Essential hypertension Unspecified essential hypertension [facility] Diagnosis 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 [facility]* Diagnosis Malignant neoplasm of testicle, unspecified laterality, unspecified whether descended or undescended (HCC) [facility] Diagnosis Malignant neoplasm of testicle, unspecified laterality, unspecified whether descended or undescended (HCC)- Primary [facility]* Diagnosis Malignant neoplasm of testicle, unspecified laterality, unspecified whether descended or undescended (HCC) [facility]* Diagnosis Malignant neoplasm of testicle, unspecified laterality, unspecified whether descended or undescended (HCC)- Primary [facility]* Diagnosis Malignant neoplasm of testicle, unspecified laterality, unspecified whether descended or undescended (HCC)- Primary [facility] encounter [facility] [place] [facility]* Diagnosis Malignant neoplasm of testicle, unspecified laterality, unspecified whether descended or undescended (HCC)- Primary [facility] in this encounter [facility] [place] [facility]* Diagnosis 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 [facility] [place] [facility]* Diagnosis 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 [facility] [place] [facility]* Diagnosis Malignant neoplasm of testicle, unspecified laterality, unspecified whether descended or undescended (HCC) documented in this encounter [facility] [place] [facility]* Diagnosis Seminoma of descended right testis (HCC) [facility] [place] [facility]* Diagnosis Seminoma of descended right testis (HCC) documented in this encounter [facility] [place] [facility]* Diagnosis 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) Malignant neoplasm of other and unspecified testis Seminoma of descended right testis (HCC) documented in this encounter [facility] [place] [facility]* Diagnosis Insomnia, unspecified type documented in this encounter [facility]* Diagnosis Malignant neoplasm of testicle, unspecified laterality, unspecified whether descended or undescended (HCC) [facility] [place] [facility]* Diagnosis Acute right ankle pain documented in this encounter [facility] HealthcareHistory general Narrative - Reported* Type Description Date Medical History hypertension Medical History sleep apnea [employer] Other Progress note No data available for this section [facility] reason for referral (narrative)* Diagnostic Procedure Only (Routine) - Open Specialty Diagnoses / Procedures Referred By Contac t Referred To Contact MOLECULAR & FUNCTIONAL IMAGING Diagnoses 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) Procedures NM PET/CT SKULL-THIGH INITIAL PET IMAGING CT ATTENUATION SKULL BASE MID-THIGH Jordan Peters MD [address] [place] [address] [place] [address] Molecular & Functional Imaging [address] [place] [id number] Referral ID Status Reason Start Date Expiration Date V isits Requested Visits Authorized [id number] Open Auto-Generate d Referral 05/23/2023 06/21/2024 1 1 [facility] for referral (narrative)* Diagnostic Procedure Only (Routine) - Pending Review Specialty Diagnoses / Procedures [facility] MOLECULAR & FUNCTIONAL IMAGING Diagnoses Malignant neoplasm of testicle, unspecified laterality, unspecified whether descended or undescended (HCC) Procedures NM PET/CT SKULL-THIGH SUBSEQUENT PET IMAGING CT ATTENUATION SKULL BASE MID-THIGH Dimitry Jasso MD [address] [place] [address] [place] [address] Molecular & Functional Imaging [address] [place] [address] Referral ID Status Reason Start Date Expiration Date Visits Requested Visits Authorized [id number] Pending Review Auto-Generat ed Referral 10/12/2023 09/11/2024 [address] [facility] for referral (narrative)* Diagnostic Procedure Only (Routine) - New Request Specialty Diagnoses / Procedures [facility] Referred To Contact MOLECULAR & FUNCTIONAL IMAGING Diagnoses Malignant neoplasm of testicle, unspecified laterality, unspecified whether descended or undescended (HCC) Procedures NM PET/CT SKULL-THIGH SUBSEQUENT PET IMAGING CT ATTENUATION SKULL BASE MID-THIGH Dimitry Jasso MD [address] [place] [address] [place] [address] Molecular & Functional Imaging [address] [place] [address] Referral ID Status Reason Start Date Expiration Date Visits Requested Visits Authorized [id number] New Request Auto-Generat ed Referral 10/12/2023 09/11/2024 [address] [facility] for referral (narrative)* Diagnostic Procedure Only (Routine) - Closed Specialty Diagnoses / Procedures [facility] Referred To Contact MOLECULAR & FUNCTIONAL IMAGING Diagnoses 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) Procedures NM PET/CT SKULL-THIGH INITIAL PET IMAGING CT ATTENUATION SKULL BASE MID-THIGH Jordan Peters MD [address] [place] [address] [place] [address] Molecular & Functional Imaging [address] [id number] Referral ID Status Reason Start Date Expiration Date V isits Requested Visits Authorized [id number] Closed Auto-Generate d Referral 06/07/2023 06/16/2023 1 1 [facility] Summary Purpose Family History No Family History Records FoundNo Family History Records FoundNo Family History Records FoundNo Family History Records Found No data available for this section No Family History Records FoundNo Family History Records Found Advance Directives Advance Directive Response Recorded Date/ Time Advance Directives No May 12:55pm Advance Directive Response Recorded Date/ Time Advance Directives No May 11:55am Reason for Referral Specialty Diagnoses / Procedures Referred By Contac t Referred To Contact CT IMAGING Diagnoses Seminoma of descended right testis (HCC) Procedures CT CHEST W IVCON DIAGNOSTIC COMPUTED TOMOGRAPHY THORAX W/CONTRAST Rosette Gan PA-C [address] [place] [address] [place] [address] Ct Imaging [id number] Referral ID Status Reason Start Date Expiration Date Visits Requested Visits Authorized [id number] Pending Review Auto-Generat ed Referral 3 03/15/2024 1 1 Specialty Diagnoses / Procedures Referred By Contac t Referred To Contact CT IMAGING Diagnoses Seminoma of descended right testis (HCC) Procedures CT ABD/PEL W IVCON CT ABD & PELVIS W/CONTRAST Rosette Gan PA-C [address] [place] [address] [place] [address] [place] [id number] Referral ID Status Reason Start Date Expiration Date Visits Requested Visits Authorized [id number] Pending Review Auto-Generat ed Referral 3 03/15/2024 1 1 Specialty Diagnoses / Procedures Referred By Contac t Referred To Contact CT IMAGING Diagnoses 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) Procedures CT CHEST W IVCON DIAGNOSTIC COMPUTED TOMOGRAPHY THORAX W/CONTRAST Jordan Peters MD [address] [place] [address] Ct Imaging Referral ID Status Reason Start Date Expiration Date Visits Requested Visits Authorized [id number] Pending Review Auto-Generat ed Referral 12/26/2021 01/25/2023 1 1 Specialty Diagnoses / Procedures Referred By Contac t Referred To Contact CT IMAGING Diagnoses 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) Procedures CT ABD/PEL W IVCON CT ABD & PELVIS W/CONTRAST Jordan Peters MD [address] [place] [address] Ct Imaging Referral ID Status Reason Start Date Expiration Date Visits Requested Visits Authorized [id number] Pending Review Auto-Generat ed Referral 12/26/2021 01/25/2023 1 1 Chief Complaint and Reason for Visit Chief Complaint g47.33 Chief Complaint G47.33 Sleep apnea 31-90 day follow up Chief Complaint Obstructive sleep ap pola Additional Source Comments (unrecognized sect ion and content) No Status Records FoundNo Status Records FoundNo Status Records FoundNo Status Records FoundNo Status Records FoundNo Status Records Found INFORMATION SOURCE (unrecogn ized section and content) DATE CREATED AUTHOR 07/28/2021 [facility] Special[facility] DATE CREATED AUTHOR AUTHOR'S ORGANIZ ATION 08/21/2021 [facility] DATE CREATED AUTHOR AUTHOR'S ORGANIZ ATION 07/26/2023 [facility] DATE CREATED AUTHOR AUTHOR'S ORGANIZ ATION 03/08/2024 [facility] DATE CREATED AUTHOR AUTHOR'S ORGANIZ ATION 04/10/2024 [facility] DATE CREATED AUTHOR AUTHOR'S ORGANIZ ATION 05/09/2024 [facility] Source Comments (unrecognize d section and content) In the event this informatio n is protected by the Federal Confidentiality of Alcohol and Drug Abuse Patient Records regulations: The Federal rules restrict any use of the information to criminally investigate or prosecute any alcohol or drug abuse patient.[facility] the event this information is protected by the Federal Confidentiality of Alcohol and Drug Abuse Patient Records regulations: The Federal rules restrict any use of the information to criminally investigate or prosecute any alcohol or drug abuse patient.[facility]on[facility] the event this information is protected by the Federal Confidentiality of Alcohol and Drug Abuse Patient Records regulations: The Federal rules restrict any use of the information to criminally investigate or prosecute any alcohol or drug abuse patient.[facility]on[facility] the event this information is protected by the Federal Confidentiality of Alcohol and Drug Abuse Patient Records regulations: The Federal rules restrict any use of the information to criminally investigate or prosecute any alcohol or drug abuse patient.[facility]on[facility] the event this information is protected by the Federal Confidentiality of Alcohol and Drug Abuse Patient Records regulations: The Federal rules restrict any use of the information to criminally investigate or prosecute any alcohol or drug abuse patient.[facility]on[facility] the event this information is protected by the Federal Confidentiality of Alcohol and Drug Abuse Patient Records regulations: The Federal rules restrict any use of the information to criminally investigate or prosecute any alcohol or drug abuse patient.[facility]onIn the event this information is protected by the Federal Confidentiality of Alcohol and Drug Abuse Patient Records regulations: The Federal rules restrict any use of the information to criminally investigate or prosecute any alcohol or drug abuse patient.[facility]onIn the event this information is protected by the Federal Confidentiality of Alcohol and Drug Abuse Patient Records regulations: The Federal rules restrict any use of the information to criminally investigate or prosecute any alcohol or drug abuse patient.[facility]onIn the event this information is protected by the Federal Confidentiality of Alcohol and Drug Abuse Patient Records regulations: The Federal rules restrict any use of the information to criminally investigate or prosecute any alcohol or drug abuse patient.[facility]onIn the event this information is protected by the Federal Confidentiality of Alcohol and Drug Abuse Patient Records regulations: The Federal rules restrict any use of the information to criminally investigate or prosecute any alcohol or drug abuse patient.[facility]onIn the event this information is protected by the Federal Confidentiality of Alcohol and Drug Abuse Patient Records regulations: The Federal rules restrict any use of the information to criminally investigate or prosecute any alcohol or drug abuse patient.[facility]onIn the event this information is protected by the Federal Confidentiality of Alcohol and Drug Abuse Patient Records regulations: The Federal rules restrict any use of the information to criminally investigate or prosecute any alcohol or drug abuse patient.[facility]onIn the event this information is protected by the Federal Confidentiality of Alcohol and Drug Abuse Patient Records regulations: The Federal rules restrict any use of the information to criminally investigate or prosecute any alcohol or drug abuse patient.[facility]onIn the event this information is protected by the Federal Confidentiality of Alcohol and Drug Abuse Patient Records regulations: The Federal rules restrict any use of the information to criminally investigate or prosecute any alcohol or drug abuse patient.[facility]onIn the event this information is protected by the Federal Confidentiality of Alcohol and Drug Abuse Patient Records regulations: The Federal rules restrict any use of the information to criminally investigate or prosecute any alcohol or drug abuse patient.[facility]onIn the event this information is protected by the Federal Confidentiality of Alcohol and Drug Abuse Patient Records regulations: The Federal rules restrict any use of the information to criminally investigate or prosecute any alcohol or drug abuse patient.[facility]onIn the event this information is protected by the Federal Confidentiality of Alcohol and Drug Abuse Patient Records regulations: The Federal rules restrict any use of the information to criminally investigate or prosecute any alcohol or drug abuse patient.[facility]onIn the event this information is protected by the Federal Confidentiality of Alcohol and Drug Abuse Patient Records regulations: The Federal rules restrict any use of the information to criminally investigate or prosecute any alcohol or drug abuse patient.[facility]onIn the event this information is protected by the Federal Confidentiality of Alcohol and Drug Abuse Patient Records regulations: The Federal rules restrict any use of the information to criminally investigate or prosecute any alcohol or drug abuse patient.[facility]onIn the event this information is protected by the Federal Confidentiality of Alcohol and Drug Abuse Patient Records regulations: The Federal rules restrict any use of the information to criminally investigate or prosecute any alcohol or drug abuse patient.[facility]onIn the event this information is protected by the Federal Confidentiality of Alcohol and Drug Abuse Patient Records regulations: The Federal rules restrict any use of the information to criminally investigate or prosecute any alcohol or drug abuse patient.[facility]onIn the event this information is protected by the Federal Confidentiality of Alcohol and Drug Abuse Patient Records regulations: The Federal rules restrict any use of the information to criminally investigate or prosecute any alcohol or drug abuse patient.[facility]onIn the event this information is protected by the Federal Confidentiality of Alcohol and Drug Abuse Patient Records regulations: The Federal rules restrict any use of the information to criminally investigate or prosecute any alcohol or drug abuse patient.[facility]onIn the event this information is protected by the Federal Confidentiality of Alcohol and Drug Abuse Patient Records regulations: The Federal rules restrict any use of the information to criminally investigate or prosecute any alcohol or drug abuse patient.[facility]onIn the event this information is protected by the Federal Confidentiality of Alcohol and Drug Abuse Patient Records regulations: The Federal rules restrict any use of the information to criminally investigate or prosecute any alcohol or drug abuse patient.[facility]onIn the event this information is protected by the Federal Confidentiality of Alcohol and Drug Abuse Patient Records regulations: The Federal rules restrict any use of the information to criminally investigate or prosecute any alcohol or drug abuse patient.[facility]onIn the event this information is protected by the Federal Confidentiality of Alcohol and Drug Abuse Patient Records regulations: The Federal rules restrict any use of the information to criminally investigate or prosecute any alcohol or drug abuse patient.[facility]onIn the event this information is protected by the Federal Confidentiality of Alcohol and Drug Abuse Patient Records regulations: The Federal rules restrict any use of the information to criminally investigate or prosecute any alcohol or drug abuse patient.[facility]onIn the event this information is protected by the Federal Confidentiality of Alcohol and Drug Abuse Patient Records regulations: The Federal rules restrict any use of the information to criminally investigate or prosecute any alcohol or drug abuse patient.[facility]onIn the event this information is protected by the Federal Confidentiality of Alcohol and Drug Abuse Patient Records regulations: The Federal rules restrict any use of the information to criminally investigate or prosecute any alcohol or drug abuse patient.[facility]onIn the event this information is protected by the Federal Confidentiality of Alcohol and Drug Abuse Patient Records regulations: The Federal rules restrict any use of the information to criminally investigate or prosecute any alcohol or drug abuse patient.[facility] Reason for Visit (unrecogniz ed section and content) Reason Comments Radiology NM Specialty Diagnoses / Procedures Referred By Contac t Referred To Contact MOLECULAR & FUNCTIONAL IMAGING Diagnoses 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) Procedures NM PET/CT SKULL-THIGH INITIAL PET IMAGING CT ATTENUATION SKULL BASE MID-THIGH Jordan Peters MD [address] [place] [address] [place] [address] Molecular & Functional Imaging [address] [place] [address] Referral ID Status Reason Start Date Expiration Date V isits Requested Visits Authorized [id number] Closed Auto-Generate d Referral 06/07/2023 06/16/2023 1 1 Reason Comments Testicular Cancer Specialty Diagnoses / Procedures Referred By Horacio vegas Referred To Contact [facility] Diagnoses office visit [facility] Referral ID Status Reason Start Date Expiration Date Visits Requested Visits Authorized [id number] Authorized Financial Clearance Required - Self Pay Patient Cleared - Qualified HCAP/501/FA 10/08/2023 01/06/2024 99 99 Reason Comments Testicular Cancer follow up Reason Comments Lab Orders Reason Comments Testicular Cancer followup Reason Comments Testicular Cancer Reason Comments testical cancer Reason Comments Results Reason Comments Radiotherapy On-treatment Visit Reason Onset Date Comments Refill Request 07/25/2023 Reason Comments Medication Problem Reason Comments Future Appointment Reason Comments Post Radiation Treatment Follow Up Reason Comments Appointment Specialty Diagnoses / Procedures Referred By Horacio vegas Referred To Contact [facility] Diagnoses Seminoma of descended right testis Procedures OFFICE CONSULTATION NEW/ESTAB PATIENT 15 MIN Jordan Peters MD [address] [place] [address] [place] [address] [facility] Referral ID Status Reason Start Date Expiration Date Visits Requested Visits Authorized [id number] Authorized Financial Clearance Required - Self Pay Patient Cleared - Qualified HCAP/501/FA Referred for [id number] 02/05/2024 05/05/2024 99 99 Specialty Diagnoses / Procedures Referred By Horacio vegas Referred To Contact [facility] Diagnoses office visit Procedures office visit Self [facility] [address] Referral ID Status Reason Start Date Expiration Date V isits Requested Visits Authorized [id number] Closed Financial Clearance Required - Self Pay Patient Cleared - Qualified HCAP/501/FA 10/08/2023 01/06/2024 99 99 Specialty Diagnoses / Procedures Referred By Contac t Referred To Contact Radiation Oncology / RADIATION ONCOLOGY Diagnoses Malignant neoplasm of descended right testis SIM treating Paraortics eng 3D 15FX PLUS SIM Procedures 3-D RADIOTHERAPY PLAN DOSE-VOLUME HISTOGRAMS SIMULATION [place] 3D 15FX PLUS SIM Dimitry Jasso MD [address] [place] [address] [place] [address] Dimitry Jasso MD [address] [place] [address] [place] [address] Referral ID Status Reason Start Date Expiration Date Visits Re quested Visits Authorized [id number] Closed 07/05/2023 10/02/2023 [address] Specialty Diagnoses / Procedures [facility] IM[facility]ING Diagnoses Seminoma of descended right testis (HCC) Procedures CT CHEST W IVCON DIAGNOSTIC COMPUTED TOMOGRAPHY THORAX W/CONTRAST Rosette Gan PA-C [address] [place] [address] [place] [address] [facility] [place] [address] Referral ID Status Reason Start Date Expiration Date V isits Requested Visits Authorized [id number] Closed Auto-Generate d Referral 04/25/2023 06/16/2023 1 1 Specialty Diagnoses / Procedures [facility] Ref[facility] To Contact CT IMAGING Diagnoses 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) Procedures CT CHEST W IVCON DIAGNOSTIC COMPUTED TOMOGRAPHY THORAX W/CONTRAST Jordan Peters MD [address] [place] [address] [place] [address] [facility] [place] [address] Referral ID Status Reason Start Date Expiration Date V isits Requested Visits Authorized [id number] Closed Auto-Generate d Referral 09/18/2022 06/16/2023 1 1 Referral ID Status Reason Start Date Expiration Date V isits Requested Visits Authorized [id number] Closed Auto-Generate d Referral 03/12/2022 06/16/2022 1 1 Referral ID Status Reason Start Date Expiration Date V isits Requested Visits Authorized [id number] Closed Auto-Generate d Referral 09/05/2021 06/16/2022 1 1 Reason Onset Date Comments Med Refill 03/23/2024 Reason Comments Radiology NM Specialty Diagnoses / Procedures Referred By Contserena t Referred To Contact CT IMAGING Diagnoses Malignant neoplasm of testicle, unspecified laterality, unspecified whether descended or undescended (HCC) Procedures CT CHEST W IVCON DIAGNOSTIC COMPUTED TOMOGRAPHY THORAX W/CONTRAST Jordan Peters MD [address] [place] [address] [place] [address] [place] [address] Referral ID Status Reason Start Date Expiration Date V isits Requested Visits Authorized [id number] Closed Auto-Generate d Referral 04/23/2024 06/16/2024 1 1 Reason Comments Med Refill Care Teams (unrecognized sec tion and content) Team Status: Active Member Role Status Dates Caity Ni DO Primary Care Provider Active Team Status: Inactive Member Role Status Dates Caity iN DO Primary Care Provider Active Krys Allen MD Attending Provider Active Teacher Of [employer] Relationship Specialty Start Date End Date Last Ashli Ray JrBertram [address] [place] [address] PCP - General Family Practice 08/09/21 Chantal Lewis MD [address] [place] [address] Referring Urology 08/09/21 [employer] Specialty Start Date End Date Rosaliocarlos Ashli Ray JrBertram [address] [place] [address] PCP - General Family Practice 08/09/21 Chantal Lewis MD [address] [place] [address] Referring Urology 08/09/21 Team Status: Inactive Member Role Status Dates Caity Ni DO Primary Care Provider, Referring Provider Active Krys Allen MD Attending Provider Active Teacher [employer] Hand[employer] Relationship Specialty Start Date End Date Rosaliocarlos Ashli Ray JrBertram [address] [place] [address] PCP - General Family Medicine 08/09/21 Chantal Lewis MD [address] [place] [address] Referring Urology 08/09/21 [employer] Specialty Start Date End Date Last Ashli Ray . [address] [place] [phone] PCP - General Family Medicine 08/09/21 Chantal Lewis MD [address] [place] [address] Referring Urology 08/09/21 [employer] Relationship Specialty Start Date End Date Ashli Ni Jr. [address] [place] [phone] PCP - General Family Medicine 08/09/21 Chantal Lewis MD [address] [place] [address] Referring Urology 08/09/21 [employer] Relationship Specialty Start Date End Date Ashli Ni Jr. [address] [place] [address] PCP - General Family Medicine 08/09/21 Chantal Lewis MD [address] [place] [address] Referring Urology 08/09/21 [employer] Hand[employer] Relationship Specialty Start Date End Date Ashli Ni Jr., DO [address] [place] [address] PCP - General Family Medicine 08/09/21 Chantal Lewis MD [address] [place] [address] Referring Urology 08/09/21 Teacher [employer] Relationship Specialty Start Date End Date Ashli Ni Jr., DO [address] [place] [phone] PCP - General Family Medicine 08/09/21 Chantal Lewis MD [address] [place] [address] Referring Urology 08/09/21 Cathi Faulkner LSW [employer] 06/28/23 Teacher [employer] Hand[employer] Relationship Specialty Start Date End Date Ashli Ni Jr., DO [address] [place] [address] PCP - General Family Medicine 08/09/21 Chantal Lewis MD [address] [place] [address] Referring Urology 08/09/21 Cathi Faulkner LSW [employer] 06/28/23 Teacher Of The Handic[employer] Relationship Specialty Start Date End Date Ashli Ni Jr., DO [address] [place] [address] PCP - General Family Medicine 08/09/21 Chantal Lewis MD [address] [place] [address] Referring Urology 08/09/21 Cathi Falukner LSW [employer] 06/28/23 Teacher Of The Handicapped Relationship Specialty Start Date End Date LastAshli Jr., DO [address] [place] [address] PCP - General Family Medicine 08/09/21 Chantal Lewis MD [address] [place] [address] Referring Urology 08/09/21 Cathi Faulkner LSW [employer] 06/28/23 Teacher Of The Handicapped Relationship Specialty Start Date End Date Last Ashli Cj Wan, DO [address] [place] [address] PCP - General Family Medicine 08/09/21 Chantal Lewis MD [address] [place] [address] Referring Urology 08/09/21 Cathi Faulkner LSW [employer] 06/28/23 Teacher Of The Handicapped Relationship Specialty Start Date End Date RosalioAshli gonzalez Jr., DO [address] [place] [address] PCP - General Family Medicine 08/09/21 Chantal Lewis MD [address] [place] [address] Referring Urology 08/09/21 Cathi Faulkner LSW [employer] 06/28/23 Teacher Of The Handicapped Relationship Specialty Start Date End Date RosalioAshli gonzalez Jr., DO [address] [place] [address] PCP - General Family Medicine 08/09/21 Chantal Lewis MD [address] [place] [address] Referring Urology 08/09/21 Cathi Faulkner LSW [employer] 06/28/23 Teacher Of The Handicapped Relationship Specialty Start Date End Date Ashli Ni Jr., DO [address] [place] [address] PCP - General Family Medicine 08/09/21 Chantal Lewis MD [address] [place] [address] Referring Urology 08/09/21 Cathi Faulkner, ACCOUNTING CLERK [employer] 06/28/23 Teacher Of The Handicapped Relationship Specialty Start Date End Date Ashli Ni Jr., DO [address] [place] [address] PCP - General Family Medicine 08/09/21 Chantal Lewis MD [address] [place] [address] Referring Urology 08/09/21 Cathi Faulkner LSW [employer] 06/28/23 Teacher Of The Handicapped Relationship Specialty Start Date End Date Ashli Ni Jr., DO [address] [place] [address] PCP - General Family Medicine 08/09/21 Chantal Lewis MD [address] [place] [address] Referring Urology 08/09/21 Cathi Faulkner LSW [employer] 06/28/23 Teacher Of The Handicapped Relationship Specialty Start Date End Date Ashli Ni Cj Wan, DO [address] [place] [address] PCP - General Family Medicine 08/09/21 Chantal Lewis MD [address] [place] [address] Referring Urology 08/09/21 Cathi Faulkner LSW [employer] 06/28/23 Teacher Of The Handicapped Relationship Specialty Start Date End Date Last Ashli Cj Wan, DO [address] [place] [address] PCP - General Family Medicine 08/09/21 Chantal Lewis MD [address] [place] [address] Referring Urology 08/09/21 Cathi Faulkner LSW [employer] 06/28/23 Teacher Of The Handicapped Relationship Specialty Start Date End Date Ashli Ni Cj Wan, DO [address] [place] [address] PCP - General Family Medicine 08/09/21 Chantal Lewis MD [address] [place] [address] Referring Urology 08/09/21 Teacher Of The Handicapped Relationship Specialty Start Date End Date LastAshli Jr., DO [address] [place] [address] PCP - General Family Medicine 08/09/21 Chantal Lewis MD [address] [place] [address] Referring Urology 08/09/21 Teacher Of The Handicapped Relationship Specialty Start Date End Date Ashli Ni Jr., DO [address] [place] [address] PCP - General Family Medicine 08/09/21 Chantal Lewis MD [address] [place] [address] Referring Urology 08/09/21 Teacher Of The Handicapped Relationship Specialty Start Date End Date Ashli iN Jr., DO [address] [place] [address] PCP - General Family Medicine 08/09/21 Chantal Lewis MD [address] [place] [address] Referring Urology 08/09/21 Teacher Of The Handicapped Relationship Specialty Start Date End Date Ashli Ni Jr., DO [address] [place] [address] PCP - General Family Medicine 08/09/21 Chantal Lewis MD [address] [place] [address] Referring Urology 08/09/21 Teacher Of The Handicapped Relationship Specialty Start Date End Date Ashli Ni, DO [address] [place] [address] PCP - General Family Medicine 10/23/22 Teacher Of The Handicapped Relationship Specialty Start Date End Date Last Ashli Grande DO [address] [place] [address] PCP - General Family Medicine 10/23/22 Goals (unrecognized section and content) Goals may be documented in a n alternate section FOR RECORDS PERTAINING TO PATIENTS WHO ARE OR HAVE BEEN ENROLLED IN A CHEMICAL DEPENDENCY/SUBSTANCEABUSE PROGRAM, SOME INFORMATION MAY BE OMITTED. This clinical summary was aggregated from multiple sources. Caution should be exercised in using it in the provision of clinical care. This summary normalizes information from multiple sources, and as a consequence, information in this document may materially change the coding, format and clinical context of patient data. In addition, data may be omitted in some cases. CLINICAL DECISIONS SHOULD BE BASED ON THE PRIMARY CLINICAL RECORDS. [employer] [facility]. provides no warranty or guarantee of the accuracy or completeness of information in this document.
--- NOTE | 2024-05-12 00:35 | ED_ITS ---
HPI - URI/Sore Throat General Chief Complaint: Upper Respiratory Infection Stated Complaint: URI SYMPTOMS Time Seen by Provider: 05/12/24 00:30 Source: patient Limitations: no limitations History of Present Illness HPI Narrative: patient has cough and runny nose for a couple of days. Does not feel short of breath. No fever or headache. Was at work and his job was concerned he may be contagious and wanted him to get checked Related Data Home Medications ?Medication ?Instructions ?Recorded ?Confirmed lisinopril 20 2 tab PO DAILY 03/24/24 05/12/24 mg-hydrochlorothiazide 12.5 mg tablet nabumetone 750 mg tablet 750 mg PO BID 03/24/24 05/12/24 fLOMAX 0.4 mg PO DAILY 05/12/24 05/12/24 trazodone 50 mg tablet 50 mg PO PRN insomnia 05/12/24 Allergies Allergy/AdvReac Type Severity Reaction Status Date / Time shellfish derived Allergy Severe Anaphylaxis Verified 05/12/24 00:26 Penicillins AdvReac Mild Unknown Verified 05/12/24 00:26 Review of Systems ROS Status of ROS 10 or more systems reviewed and unremark able except as noted in history and below PFSH PFSH Social History Little interest or pleasure in doing things: not at all Feeling down, depressed, or hopeless: not at all Exam Constitutional Vital Signs, click to edit/add: Last Vital Signs Temp 98.1 F 05/12/24 00:22 Pulse 74 05/12/24 00:22 Resp 16 05/12/24 00:22 BP 164/96 H 05/12/24 00:22 Pulse Ox 94 L 05/12/24 00:22 O2 Del Method Room Air 05/12/24 00:22 Common normals: no apparent distress, oriented x3, no limitations, healthy appearing, alert and well nourished [facility] Common normals: normocephalic and head/scalp atraumatic Eye Common normals: EOMs intact bilaterally and conjunctivae normal Respiratory Common normals: normal respiratory effort, no retractions, no use of accessory muscles and clear to auscultation bilaterally Cardio Common normals: regular rate, regular rhythm, S1 normal heart sound and S2 normal heart sound Extremity Common normals: normal to inspection and full ROM Neuro Common normals: oriented x3, CN's II-XII intact bilaterally, moves all extremities and no focal motor deficits Psych Appearance: grossly normal Course Vital Signs Vital signs: Vital Signs Temperature 98.1 F 05/12/24 00:22 Pulse Rate 74 05/12/24 00:22 Respiratory Rate 16 05/12/24 00:22 Blood Pressure 164/96 H 05/12/24 00:22 Pulse Oximetry 94 L 05/12/24 00:22 Oxygen Delivery Method Room Air 05/12/24 00:22 Temperature 98.1 F 05/12/24 00:22 Pulse Rate 74 05/12/24 00:22 Respiratory Rate 16 05/12/24 00:22 Blood Pressure 164/96 H 05/12/24 00:22 Pulse Oximetry 94 L 05/12/24 00:22 Oxygen Delivery Method Room Air 05/12/24 00:22 Discharge Plan Discharge Chief Complaint: Upper Respiratory Infection Prescriptions / Home Meds: No Action nabumetone 750 mg tablet 750 mg PO BID lisinopril-hydrochlorothiazide 20-12.5 mg tablet 2 tab PO DAILY fLOMAX 0.4 mg PO DAILY trazodone 50 mg tablet 50 mg PO PRN (Reason: insomnia) Print Language: Chadian Referrals: Dimitry CRABTREE [Primary Care Provider] - 1 week
--- NOTE | 2024-05-12 00:37 | XR_ITS ---
The [address] [address] Patient Name: WANDA BOOKER MRN: [id number] date: 1975 Sex: M Assigned Patient Location: ER Current Patient Location: ER Accession/Order Number: [id number] Exam Date: 05/12/2024 00:45 Report Date: 05/12/2024 02:30 At the request of: SHARON GUERRA Procedure: XR chest 2V EXAM: XR chest 2V HISTORY: cough and rhinorrhea for several days. COMPARISON: CTA chest, 03/24/2024. TECHNIQUE: Frontal and lateral chest x-rays. FINDINGS: The heart, mediastinum and pulmonary vascularity are within normal limits. There is mild linear bibasilar atelectasis. The lungs and pleural spaces are otherwise clear. The bony thorax appears intact. XR/XR chest 2V IMPRESSION: Nonacute chest. Electronically authenticated by: BASIL SINGH Date: 05/12/2024 02:30
[2024-05-12 00:46] LABS: Influenza Virus A Antigen Negative; Influenza Virus B Antigen Negative; Internal Control Within Normal Limits
[2024-05-12 00:47] LABS: Internal Control Within Normal Limits; SARS-CoV-2 Ag NEGATIVE (NEGATIVE)
[2024-05-12 01:05] LABS: Basophils Percent Auto 0.6 % (0.2-2.0); Eosinophils Absolute Auto 0.2 10^3/uL (0.0-0.7); Eosinophils Percent Auto 2.6 % (0.9-7.0); Hematocrit 38.4 % (42.0-54.0); Hemoglobin 13.6 g/dL (14.0-18.0); Immature Granulocytes Abs Auto 0.03 10^3/uL (0.00-0.03); Immature Granulocytes Pct Auto 0.4 % (0.0-0.5); Lymphocytes Absolute Auto 1.3 10^3/uL (1.2-3.8); Lymphocytes Percent Auto 17.8 % (20.5-60.0); Mean Corpuscular HGB Conc 35.4 g/dL (29.9-35.2); Mean Corpuscular Hemoglobin 30.7 pg (25.9-34.0); Mean Corpuscular Volume 86.7 fL (80.0-94.0); Mean Platelet Volume 9.9 fL (9.5-13.5); Monocytes Absolute Auto 0.7 10^3/uL (0.3-0.8); Neutrophils Percent Auto 68.6 % (43.0-75.0); Platelet Count 197 10^3/uL (150-450); Red Blood Count 4.43 10^6/uL (4.70-6.10); Red Cell Distribution Width 12.6 % (11.0-15.0); White Blood Count 7.2 10^3/uL (4.0-11.0)
[2024-05-12 01:16] LABS: Anion Gap 14.8; BUN Creatinine Ratio 18.1; Calcium 9.2 mg/dL (8.5-10.1); Carbon Dioxide 26.9 mmol/L (21.0-32.0); Chloride 102 mmol/L (98-107); Estimated GFR (African America >60 (>=60 mL/min/1.73m^2); Estimated GFR (Non-African Ame >60 (>=60 mL/min/1.73m^2); Glucose 124 mg/dL (74-106); Potassium 3.7 mmol/L (3.5-5.1); Sodium 140 mmol/L (136-145)
[2024-05-12 02:03] VITALS: BP 137/95; PULSE 66; O2SAT 97
== END 2024-05-12 02:36 | disposition left against medical advice (07) ==
PROVIDERS: Emergency Provider Internal Medicine; PCP Family Medicine
DX: J06.9 Acute upper respiratory infection, unspecified (principal); Z53.29 Procedure and treatment not carried out because of patient's decision for other reasons
CPT/HCPCS: 36415; 71046; 80048; 85025; 87804; 87811; 99284

== ENCOUNTER 2024-05-30 05:27 | Emergency (ER) | payer BC, SELFPAY ==
--- NOTE | 2024-05-30 04:32 | XR_ITS ---
The [address] [address] Patient Name: WANDA BOOKER MRN: [id number] date: 1975 Sex: M Assigned Patient Location: Current Patient Location: Accession/Order Number: [id number] Exam Date: 05/30/2024 04:48 Report Date: 06/01/2024 07:46 At the request of: HUEY DAN Procedure: XR chest 2V EXAMINATION: XR chest 2V HISTORY: Rib pain COMPARISON: 05/12/2024 TECHNIQUE: PA and lateral FINDINGS: LUNGS: No significant pulmonary parenchymal abnormalities. Low lung volumes VASCULATURE: No increased pulmonary vasculature. PLEURA: No pneumothorax, effusion, or pleural thickening. CARDIAC: No cardiomegaly or cardiac silhouette abnormality. MEDIASTINUM: No visible mass or adenopathy. BONES: No fracture or visible bone lesion. OTHER: Negative. XR/XR chest 2V IMPRESSION: No acute cardiopulmonary process Electronically authenticated by: KRYS ASHER Date: 06/01/2024 07:46
--- OUTSIDE RECORDS SUMMARY | 2024-05-30 05:33 | XMS_ITS | CCD ---
Author Organization [facility] Care Team Providers Care Swine Nutritionist Name Role Phone DEBBIE, DR CORNEJO Admitting Unavailable DEBBIE, DR CORNEJO Attending Unavailable LAST, DR Dimitry RAY Referring Unavailable KASHERRON, DR Dimitry RYA Primary Care Unavailable DEBBIE, DR CORNEJO Consulting Unavailable LAKESHIA, DR KRYS Orta Consulting Unavailable DEBBIE, DR CORNEJO Admitting Unavailable DEBBIE, DR CORNEJO Attending Unavailable KASHERRON, DR Dimitry RAY Primary Care Unavailable DEBBIE, DR CONREJO Consulting Unavailable VIVI PARKS Consulting Unavailable MICHAEL GARAY Consulting Unavailable LAST, DR Dimitry RAY Primary Care Unavailable KWASI LARA Admitting Unavailable KWASI LARA Attending Unavailable EVELYN CUEVAS Consulting Unavailable KWASI LARA Consulting Unavailable Ashli Ni Jr. Primary Care Provider Chantal Lewis MD R Unavailable [phone] Dimitry NI Primary Care Physician [phone] Pravin Cantu Unavailable DO Caity Ni Primary Care Provider DO Caity Ni Referring Provider MD Krys Allen Attending Provider [phone] Ashli Ni Jr. Primary Care Provider Chantal Lewis MD Unavailable DO Caity Ni Primary Care Provider DO Caity Ni Referring Provider MD Krys Allen Attending Provider Krys Allen Unavailable Ashli Ni Jr. Primary Care Provider Chantal Lewis MD Unavailable [phone] Last Wan, DO Ashli [facility] Provi jarod DO Caity Ni Primary Care Provider [phone] MD Krys Allen Attending Provider Cathi Storey Unavailable Unavailable Caity Ni Flor Primary Care Unavailable Krys Allen Attending Unavailable Krys Allen Admitting Unavailable Last Wan DO [facility] Provi jarod Chantal Lewis MD Unavailable [phone] Ashli Ni DO Primary Care Provider Chantal LEWIS Attending Unavailable Chantal LEWIS Attending Unavailable [facility] Unavail able Dimitry JASSO Attending Unavailable [facility] Unavail able Dimitry JASSO Referring Unavailable Dimitry JASSO Attending Unavailable [facility] Unavail able JORDAN PETERS Referring Unavailable Former[facility] Unavail able Dimitry JASSO [facility]ending [facility] Dimitry J[facility] Attending Unavailable Dimitry JASSO Referring Unavailable Former[facility] Unavail able Dimitry JASSO Attending Unavailable Former[facility] Unavail able JORDAN PETERS Attending Unavailable ROSETTE GAN Referring Unavailable Former[facility] Unavail able JORDAN PETERS Referring Unavailable Former[facility] Unavail able Dimitry JASSO Referring Unavailable Former[facility] Unavail able Dimitry JASSO Attending Unavailable Dimitry JASSO Referring Unavailable Former[facility] Unavail able Dimitry JASSO Referring Unavailable Former[facility] Unavail able Dimitry JASSO Referring Unavailable Former[facility] Unavail able SHERRON [facility] Unavail able Dimitry JASSO Referring Unavailable Former[facility] Unavail able LAST [facility] Unavail able Dimitry JASSO Attending Unavailable Dimitry JASSO Attending Unavailable Dimitry JASSO Referring Unavailable AMYAN , ASHLI RAY Primary Care Unavail able KAVANIAAN , [facility] Primary Care Unavail able Dimitry JASSO Referring Unavailable AMYAN , ASHLI FLOR [facility] Care Unavail able Dimitry JASSO Attending Unavailable LAST , ASHLI RAY [facility] Care Unavail able JORDAN PETERS Attending Unavailable JORDAN PETERS Referring Unavailable ASHLI NI JR [facility] Care Unavail able KAVANIAAN , [facility] Care Unavail able Dimitry JASSO Referring Unavailable KAVANIAAN , ASHLI FLOR [facility] Care Unavail able Dimitry JASSO Referring Unavailable KAVANIAAN , ASHLI RAY [facility] Care Unavail able KAVANIAAN , [facility] Care Unavail able Dimitry JASSO Referring Unavailable JORDAN PETERS Referring Unavailable AMYAN , ASHLI FLOR [facility] Care Unavail able JORDAN PETERS Referring Unavailable AMYCARLOS SPAULDING, ASHLI RAY [facility] Care Unavail able JORDAN PETERS Attending Unavailable AMYCARLOS , ASHLI FLOR [facility] Unavail able SELF Referring Unavailable AMYCARLOS [facility] FLOR [facility] Care Unavail able ARIES SANCHEZ Referring Unavailable AMYAN , ASHLI FLOR [facility] Care Unavail able Dimitry JASSO Attending Unavailable AMYAN , ASHLI FLOR [facility] Care Unavail able Dimitry JASSO Referring Unavailable AMYAN ASHLI RAY [facility] Unavail able KAVANIAAN , ASHLI FLOR [facility] Unavail able KASHERRON , ASHLI FLOR [facility] Care Unavail able Dimitry JASSO Referring Unavailable Dimitry JASSO Attending Unavailable JORDAN PETERS Referring Unavailable AMYCARLOS [facility] FLOR [facility] Unavail able [facility] Dimitry JASSO Referring Unavailable ROSETTE GAN Referring Unavailable LAST SPAULDINGASHLI [facility] Unavail able Ashli Ni DO Unavailable [phone] YEHUDA HOROWITZ Attending Unavailable ASHLI NI Attending Unavailable ASHLI NI Attending Unavailable ASHLI NI Referring Unavailable ASHLI NI Referring Unavailable Allergies Allergy Classification Reported Allergen(s) Allergy Type Date of Onset Reaction(s) Facility (1 source) Penicillin Drug Allergy [facility] (3 sources) Shellfish; Translations: [shellfish] Drug allergy (disorder) Unknown (qualifier value) [facility] (2 sources) Penicillins; Translations: [PENICILLINS] Drug Allergy 2 Rash [facility] (20 sources) Shellfish; Translations: [shellfish] Drug Allergy 2 Other: See Comments, Unknown (qualifier value) [facility] (20 sources) Penicillins Drug Allergy 2 Rash [facility] (4 sources) Shellfish; Translations: [shellfish derived] Allergy to substance 1 Swelling of Lip/Tongue/Thro at [facility] (6 sources) Amoxicillin Drug Allergy 3 Rash [facility] Healthcare Work Phone: (6 sources) Shellfish Allergy to substance 2 Unknown [facility] (6 sources) Shellfish-Deriv ed Products Drug Allergy 3 Unknown [facility] Healthcare Medications Current Medications Medication Drug Class(es) Dates Sig (Normalized) Sig (Original) [id number] 200 actuat albuterol 0.09 mg/actuat metered dose inhaler (2 sources) beta2-Adrenergic Agonist Start: 05-25-2024 End: 05-25-2025 take 2 puff(s) by inhalation every four hours for wheezing albuterol HFA 90 mcg/act inhaler Indications: Bronchitis Inhale 2 puffs every 4 (four) hours if needed for wheezing 18 g 3 05/25/2024 05/25/2025 Active 24 hr alfuzosin hydrochloride 10 mg extended release oral tablet (3 sources) alpha-Adrenergic Gadiel Start: 03-23-2024 End: 05-25-2024 take 1 tablet by mouth once daily alfuzosin 10 mg ER Tab 10 mg = 1 tab(s), Oral, Daily, # 30 tab(s), Refills(s) 11, [id number], 180, cm, 03/23/24 10:12:00 EDT, Height/Length Dosing, 157, kg, 03/23/24 10:12:00 EDT, Weight Dosing Start Date: 03/23/24 Status: Ordered aspirin 81 mg oral tablet (10 sources) Platelet Aggregation Inhibitor, Nonsteroidal Anti-inflammatory Drug take 1 capsule by mouth in the morning aspirin (Vazalore) 81 MG capsule Take 81 mg by mouth in the morning. Active azithromycin 250 mg oral tablet (5 sources) Macrolide Antimicrobial Start: 05-25-2024 azithromycin (Zithromax) 250 MG tablet Indications: Bronchitis 2 pills orally today, then 1 pill orally daily for 4 days 6 tablet 05/25/2024 Active Start: 05-25-2024 azithromycin ( Zithromax) 250 MG tablet Indications: Bronchitis 2 pills orally today, then 1 pill orally daily for 4 days 6 tablet 05/25/2024 Active Start: 05-27-2019 End: 03-19-2021 take 2-5 tablets by mouth once daily Azithromycin (Zithromax Z-Rashi) 250 mg Tablet Discontinued 1 dose pk PO as directed on dose pack May 27, 2019 12:00am March 19, 2021 8:51am take 500 mg today (day 1), then 250 mg for 4 days (days 2-5) benzonatate 200 mg oral capsule (2 sources) Non-narcotic Antitussive Start: 05-25-2024 End: 06-01-2024 take 1 capsule by mouth three times daily as needed for cough benzonatate (Tessalon) 200 MG capsule Indications: Bronchitis Take 1 capsule (200 mg) by mouth 3 (three) times a day as needed for cough for up to 7 days Do not crush or chew. 20 capsule 05/25/2024 06/01/2024 Active Cranberry preparation (2 sources) Non-Standardized Food Allergenic Extract, Non-Standardized Plant Allergenic Extract Start: 08-09-2021 cranberry oral capsule See Instructions Start Date: 08/09/21 Status: Ordered hydroCHLOROthiazide 12.5 mg / lisinopril 20 mg oral tablet (20 sources) Thiazide Diuretic, Angiotensin Converting Enzyme Inhibitor Start: 05-19-2024 take 2 tablets by mouth once daily lisinopril-hydroC HLOROthiazide 20-12.5 MG tablet Indications: Primary hypertension (CMS/HCC) Take 2 tablets by mouth Daily 180 tablet 3 05/19/2024 Active Start: 03-23-2024 take 1 tablet by kieran th once daily hydrochlorothiazide-lisinopril 12.5 mg-2 0 mg Tab 1 tab(s), Oral, Daily Start [...] on above: Take 2 tablets by mo ut every afternoon. methylPREDNISolone (2 sources) Corticosteroid Start: 05-25-20 End: 06-01-20 methylPREDNISolone (Medrol Dospak) 4 MG tablets Indications: Bronchitis Follow schedule on package instructions 21 tablet 05/25/2024 06/01/2024 Active Multi Vitamin+ (2 sources) Start: 08-02-19 Multi Vitamin+ Refill(s) 0 Start Date: 08/02/21 Status: Ordered multivit-min/ferrous fumarate (MULTI VITAMIN ORAL) (20 sources) Start: 08-02-19 multivit-min/ferrous fumarate (MULTI VITAMIN ORAL) Refill(s) 0 08/02/2021 Active Start: 08-02-2021 multivit-min/f errous fumarate (MULTI VITAMIN ORAL) Refill(s) 0 0 08/02/2021 Active Comment on above: Refill(s) 0 Multivitamin preparation (2 sources) take 1 tablet by mouth once daily Multivitamin - 1 tablet Orally Once a day Active nabumetone 750 mg oral tablet (11 sources) Nonsteroidal Anti-inflammatory Drug Start: 05-04-20 take 1 tablet by mouth at mealtime nabumetone (Relafen) 750 MG tablet Indications: Acute right ankle pain TAKE 1 TABLET(750 MG) BY MOUTH IN THE MORNING AND IN THE EVENING WITH MEALS 60 tablet 05/04/2024 Active Start: 03-23-2024 take 2 tablets by mo ut once daily nabumetone 750 mg Tab 1,500 mg = 2 tab(s), Oral, Daily Start Date: 03/23/24 Status: Ordered Start: 02-26-2024 [facility] nabumetone (Relafen) 750 MG tablet Indications: Acute right ankle pain TAKE 1 TABLET(750 MG) BY MOUTH IN THE MORNING AND IN THE EVENING WITH MEALS 60 tablet 02/26/2024 Active take 500 mg by mouth twice daily [...] every 8 hours as needed for nausea/vomiting. tamsulosin hydrochloride 0.4 mg oral capsule (3 sources) alpha-Adrenergic Gadiel take 1 capsule by mouth every twenty-four hours in the morning tamsulosin (Flomax) 0.4 MG 24 hr capsule Take 0.4 mg by mouth in the morning. Active take 0.4 mg by mouth once daily tamsulosin (FLOMAX) 0.4 mg Take 0.4 mg by mouth once daily. Active traZODone hydrochloride 50 mg oral tablet (20 sources) Serotonin Reuptake Inhibitor Start: 10-23-2022 End: 03-23-2024 traZODone (Desyrel) 50 MG tablet Indications: Insomnia, unspecified type Take 1 tablet (50 mg) by mouth as needed at bedtime for sleep 30 tablet 3 03/23/2024 Active Comment on above: Take 50 mg [...] every four to six hours Hydrocodone-Acetamin ophen ([place]) 5-325 mg tablet Discontinued 1 TAB PO EVERY 4-6 HOURS 10 3 June 08, 2018 May 27, 2019 3:36am amoxicillin 500 mg oral capsule (3 sources) Penicillin-class Antibacterial Start: 05-27-2019 End: 03-19-2021 take 1 mg by mouth four times daily Amoxicillin Discontinued MG PO Four times daily May 27, 2019 12:00am March 19, 2021 8:51am cyclobenzaprine hydrochloride 10 mg oral tablet (3 [...] Converting Enzyme Inhibitor Start: 08-16-19 End: 05-23-20 23 take 1 tablet by mouth once daily [...] [Seminoma of descended testis] Onset: 08-08-2021 Chronic Chronic obstructive pulmonary disease and bronchiectasis (6 sources) Bronchitis; Translations: [Bronchitis, not specified as acute or chronic] Onset: 05-25-2024 05-25-2024 Episodic Esophageal disorders (9 sources) Gastroesophageal reflux disease without esophagitis; Translations: [Gastro-esophageal reflux disease without esophagitis] Onset: 02-28-2023 02-28-2023 Chronic Essential hypertension (18 sources) Essential (primary) hypertension; Translations: [Elevated blood pressure] Onset: 08-08-2021 Chronic Hyperplasia of prostate (11 sources) Benign prostatic hyperplasia without lower urinary tract symptoms; Translations: [Benign prostatic hypertrophy without outflow obstruction] Onset: 08-08-2021 Chronic Nonspecific chest pain (1 source) Chest pain, unspecified; Translations: [CHEST PAIN UNSPECIFIED] Onset: 08-21-2021 Episodic Other aftercare (1 source) 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; Translations: [OTH RESIDENTIAL CURRENT DRUG THERAPY] Onset: 08-21-2021 Episodic Other [...] ORGANISM] Onset: 08-21-2021 Episodic Residual codes; unclassified (13 sources) Obstructive sleep apnea syndrome; Translations: [Obstructive [...] te Episodic/Chronic Genitourinary symptoms and ill-defined conditions (19 sources) Nocturia; Translations: [Asymptomatic microscopic hematuria] Onset: 08-04-2021 Episodic Other connective tissue disease (2 sources) Other enthesopathies, not elsewhere classified; Translations: [Right shoulder tendonitis M77.8] Onset: 03-21-2021 Resolved: 04-25-2021 Episodic Other male genital disorders (8 sources) Mass of epididymis; Translations: [Other specified disorders of the male genital organs] Onset: 03-05-2023 06-07-2021 Episodic Other male genital disorders (10 sources) Testicular mass; Translations: [Other specified disorders of the male genital organs] Onset: 03-05-2023 06-07-2021 Episodic Other non-traumatic joint disorders (1 source) Pain in right shoulder; Translations: [Acute pain of right shoulder M25.511] Onset: 03-21-2021 Resolved: 03-21-2021 Episodic Residual codes; unclassified (7 sources) Insomnia; Translations: [Insomnia, unspecified] Onset: 02-28-2023 03-23-2024 Episodic Results Test Name Value Interpretation Reference Range Facility XR CHEST 2 VIEWSon 4 XR CHEST 2 VIEWS EXAM: XR CHEST 2 VIE WS Clinical History: CHest congestion, shortness of breath, wheezing Reference Exam: No comparison Findings: The cardiopericardial silhouette is normal in appearance. The pulmonary vessels are not cephalized. There is no alveolar edema, pneumonia, or pneumothorax. Negative for pleural effusion. The skeleton is remarkable for thoracic spinal spondylosis. Impression: Negative for specific acute cardiopulmonic pathology. Dictated on: 05/26/2024 9:39 AM This report has been electronically signed and approved by the interpreting Radiologist. Normal Not Available CT ABD/PEL W IVCONon 11-20-[address] ABD/PEL W IVCON * * *Final Report* * * DATE OF EXAM: May 06 2024 1:07PM [facility] 0530 - CT ABD/PEL W IVCON / [...] was performed concurrently and is dictated separately. Floor Cleaner (topogram) images: Unremarkable. IMPRESSION: No metastatic disease [...] any questions regarding this interpretation, please call [phone]. If you are unable to reach us at the number above, please feel free to contact [facility] at [phone]. [id number] Normal [facility] CT Abdomen and Pelvis W cont [...] any questions regarding this interpretation, please call [phone]. If you are unable to reach us at the number above, please feel free to contact [facility] at [phone]. DIVISION OF RADIOLOGY * * *Final Report* * * DATE OF EXAM: May 06 2024 1:07PM [facility] 0530 - CT ABD/PEL W IVCON / [...] was performed concurrently and is dictated separately. Floor Cleaner (topogram) images: Unremarkable. DIVISION OF RADIOLOGY Provider, [facility] - 05/06/2024 * * *Final Report* * * DATE OF EXAM: May 06 2024 1:07PM [facility] 0530 - CT ABD/PEL W IVCON / [...] was performed concurrently and is dictated separately. Floor Cleaner (topogram) images: Unremarkable. IMPRESSION IMPRESSION: No metastatic [...] any questions regarding this interpretation, please call [phone]. If you are unable to reach us at the number above, please feel free to contact [facility] at [phone]. [facility] CT CHEST W IVCONon 4 CT CHEST W IVCON * * *Final Report* * * DATE OF EXAM: May 06 2024 1:07PM [facility] 0539 - CT CHEST W IVCON / [...] was performed concurrently and is dictated separately. Floor Cleaner (topogram) images: Unremarkable. IMPRESSION: No metastatic disease [...] any questions regarding this interpretation, please call [phone]. If you are unable to reach us at the number above, please feel free to contact [facility] at [phone]. [id number] Normal [facility] CT Chest W contrast Tammi IMPRESSION: [...] any questions regarding this interpretation, please call [phone]. If you are unable to reach us at the number above, please feel free to contact [facility] at [phone]. DIVISION OF RADIOLOGY * * *Final Report* * * DATE OF EXAM: May 06 2024 1:07PM [facility] 0539 - CT CHEST W IVCON / [...] was performed concurrently and is dictated separately. Floor Cleaner (topogram) images: Unremarkable. DIVISION OF RADIOLOGY Provider, [facility] - 05/06/2024 * * *Final Report* * * DATE OF EXAM: May 06 2024 1:07PM [facility] 0539 - CT CHEST W IVCON / [...] was performed concurrently and is dictated separately. Floor Cleaner (topogram) images: Unremarkable. IMPRESSION IMPRESSION: No metastatic [...] any questions regarding this interpretation, please call [phone]. If you are unable to reach us at the number above, please feel free to contact [facility] at [phone]. [facility] CT Chest W contrast IVOrdere keith By: [facility] Provider on 05-06-2024 [facility] No Panel Informationon 05-06 Radiology Study observation (narrative) [facility] Provider Letteron 04-09-2024 Provider Letter Provider Letter April 09, 2024 JORDAN BENNETT [address] [address] : 1975 Dear Jordan We have been trying to reach you with no success. It is important that you return our call regarding your test results upon receiving this letter. Also, at the time of your call, please provide us with your current information. Thank you for your prompt attention to this matter. Sincerely, [facility] [address] [place] [address] [facility] Ambulatory Visit Summaryon 1 Ambulatory Visit [...] Chantal LEWIS MD Where: [facility] [address] [place] [address]- You Need to Schedule the Following Appointments Follow Up with Chantal LEWIS MD, URL When: Comments: 10 mos (getting PSA done soon) Where: [facility] [address], [place] [address]- [phone] Medications What How Much When Instructions New alfuzosin (alfuzosin 10 mg ER Tab) 1 Tablets By Mouth Every day Refills: 11 Pickup at [facility] #[id number] Unchanged cranberry (cranberry oral capsule) See instructions [...] physician if questions or concerns Pharmacy Information [id number]: [address], [place] [id number] [phone] Allergies shellfish (Unknown) Problems Ongoing - Any [...] area. Yo (more content not included)... Normal [facility] Urology Office/Clinic Noteon 03-23-2024 Urology Office/Clinic Note [...] Chantal [place], URL [facility] [address] [place] [address] [phone] Additional Instructions: 10 mos (getting PSA done soon) Patient Education Testicular Self-Exam Prostate Cancer Screening I, Kim Rios, personally scribed for Dr. Lewis on 03/23/2024 10:56:00. . Documentation recorded by the scribeKim, accurately reflects the services(s) I performed and [...] Medications alfuz (more content not included)... Normal [facility] Comment on above: Result Comment: Elec tronically Signed By: Chantal LEWIS MD\.br\Date and Time Signed: 03/23/24 11:00 EDT\.br\Electronically Co-Signed By: Kim Rios\.br\Date and Time Co-Signed: 03/23/24 10:57 EDT AFP SerPl-mCncon 02-06-2024 AFP [Mass/Vol] ng/mL Normal <11.0 [facility] Comment on above: Order Comment: Speci men Type: BLOOD SPECIMENOrdering Facility: [facility] Address: [address] [place] [address] Result Comment: Resu lt rechecked. The Alpha-Fetoprotein test was performed using the Siemens Centaur XP chemiluminometric immunoassay method. Results obtained with different assay methods or kits cannot be used interchangeably. 1.75 The Alpha-Fetoprotein test was performed using the Patrick Unicel DxI immunoenzymatic assay. Results obtained with different assay methods or kits cannot be used interchangeably. Performed By: #### 1 834-1 ####[facility] LABCLIA [id number] [place]66[place]IVFRPCHRI[place] [id number] [place] BETA HCG QUANT TUMOR MARKERo n 02-06-2024 BETA HCG QUANT TUMOR MARKER <1 Normal 0-3 [facility] Comment on above: Order Comment: Speci men Type: BLOOD SPECIMENOrdering Facility: [facility] Address: [address] [place] [address] Result Comment: INTE RPRETIVE INFORMATION: Beta hCG, [...] reference intervals for this test in the [facility] Test Directory ([employer]news). This test was developed and its performance characteristics determined by [facility]. It has not been cleared or approved by the [place] Food and Drug Administration. This test was performed in a CLIA certified laboratory and is intended for clinical purposes. Performed By: [facility] [address] [place] [address] Protocol Officer: Cam Archibald MD, PhD CLIA Number: [id number] Performed By: #### B HCG ####[facility] LABORATORIESCLIA [id number] [place] [id number] CBC W Auto Differential pane l (Bld)on 02-06-2024 Basophils (Bld) [#/Vol] 0.03 10*3/uL Normal <0.11 [facility] Comment on above: Order Comment: Speci men Type: BLOOD SPECIMENOrdering Facility: [facility] Address: [address] [place] [address] Performed By: #### 5 7021-8 ####[facility] LABCLIA [id number] [place] [address] Basophils/100 WBC (Bld) 0.4 % Normal [facility] Comment on above: Order Comment: Speci men Type: BLOOD SPECIMENOrdering Facility: [facility] Address: [address] [place] [address] Performed By: #### 5 7021-8 ####[facility] LABCLIA [id number] [place] [address] Differential cell count method Nom (Bld) Auto Normal [facility] Comment on above: Order Comment: Speci men Type: BLOOD SPECIMENOrdering Facility: [facility] Address: [address] [place] [address] Performed By: #### 5 7021-8 ####[facility] LABCLIA [id number] [place] [address] Eosinophils (Bld) [#/Vol] 0.14 10*3/uL Normal <0.46 [facility] Comment on above: Order Comment: Speci men Type: BLOOD SPECIMENOrdering Facility: [facility] Address: [address] [place] [address] Performed By: #### 5 7021-8 ####[facility] LABCLIA [id number] [place] [address] Eosinophils/100 WBC (Bld) 1.9 % Normal [facility] Comment on above: Order Comment: Speci men Type: BLOOD SPECIMENOrdering Facility: [facility] Address: [address] [place] [address] Performed By: #### 5 7021-8 ####[facility] LABCLIA [id number] [place] [address] Erythrocyte distribution width (RBC) [Ratio] 13.1 % Normal 11.5-15.0 [facility] Comment on above: Order Comment: Speci men Type: BLOOD SPECIMENOrdering Facility: [facility] Address: [address] [place] [address] Performed By: #### 5 7021-8 ####[facility] LABCLIA [id number] [place] [address] Hematocrit (Bld) [Volume fraction] 38.4 % Low 39.0-51.0 [facility] Comment on above: Order Comment: Speci men Type: BLOOD SPECIMENOrdering Facility: [facility] Address: [address] [place] [address] Performed By: #### 5 7021-8 ####[facility] LABCLIA [id number] [place] [address] Hemoglobin (Bld) [Mass/Vol] 13.9 g/dL Normal 13.0-17.0 [facility] Comment on above: Order Comment: Speci men Type: BLOOD SPECIMENOrdering Facility: [facility] Address: [address] [place] [address] Performed By: #### 5 7021-8 ####[facility] LABCLIA [id number] [place] [address] Immature granulocytes (Bld) [#/Vol] 0.05 10*3/uL Normal <0.10 [facility] Comment on above: Order Comment: Speci men Type: BLOOD SPECIMENOrdering Facility: [facility] Address: [address] [place] [address] Performed By: #### 5 7021-8 ####[facility] LABIA [id number] [place] [address] Immature granulocytes/100 WBC (Bld) 0.7 % Normal [facility] Comment on above: Order Comment: Speci men Type: BLOOD SPECIMENOrdering Facility: [facility] Address: [address] [place] [address] Performed By: #### 5 7021-8 ####[facility] LABCLIA [id number] [place] [address] Lymphocytes (Bld) [#/Vol] 1.00 10*3/uL Normal 1.00-4.00 [facility] Comment on above: Order Comment: Speci men Type: BLOOD SPECIMENOrdering Facility: [facility] Address: [address] [place] [address] Performed By: #### 5 7021-8 ####[facility] LABCLIA [id number] [place] [address] Lymphocytes/100 WBC (Bld) 13.5 % Normal [facility] Comment on above: Order Comment: Speci men Type: BLOOD SPECIMENOrdering Facility: [facility] Address: [address] [place] [address] Performed By: #### 5 7021-8 ####[facility] LABCLIA [id number] [place] [address] MCH (RBC) [Entitic mass] 30.5 pg Normal 26.0-34.0 [facility] Comment on above: Order Comment: Speci men Type: BLOOD SPECIMENOrdering Facility: [facility] Address: [address] [place] [address] Performed By: #### 5 7021-8 ####[facility] LABCLIA [id number] [place] [address] MCHC (RBC) [Mass/Vol] 36.2 g/dL High 30.5-36.0 [facility] Comment on above: Order Comment: Speci men Type: BLOOD SPECIMENOrdering Facility: [facility] Address: [address] [place] [address] Performed By: #### 5 7021-8 ####[facility] LABCLIA [id number] [place] [address] MCV (RBC) [Entitic vol] 84.4 fL Normal 80.0-100.0 [facility] Comment on above: Order Comment: Speci men Type: BLOOD SPECIMENOrdering Facility: [facility] Address: [address] [place] [address] Performed By: #### 5 7021-8 ####[facility] LABCLIA [id number] [place] [address] Monocytes (Bld) [#/Vol] 0.39 10*3/uL Normal <0.87 [facility] Comment on above: Order Comment: Speci men Type: BLOOD SPECIMENOrdering Facility: [facility] Address: [address] [place] [address] Performed By: #### 5 7021-8 ####[facility] LABCLIA [id number] [place] [address] Monocytes/100 WBC (Bld) 5.2 % Normal [facility] Comment on above: Order Comment: Speci men Type: BLOOD SPECIMENOrdering Facility: [facility] Address: [address] [place] [address] Performed By: #### 5 7021-8 ####[facility] LABCLIA [id number] [place] [address] Neutrophils (Bld) [#/Vol] 5.82 10*3/uL Normal 1.45-7.50 [facility] Comment on above: Order Comment: Speci men Type: BLOOD SPECIMENOrdering Facility: [facility] Address: [address] [place] [address] Performed By: #### 5 7021-8 ####[facility] LABCLIA [id number] [place] [address] Neutrophils/100 WBC (Bld) 78.3 % Normal [facility] Comment on above: Order Comment: Speci men Type: BLOOD SPECIMENOrdering Facility: [facility] Address: [address] [place] [address] Performed By: #### 5 7021-8 ####[facility] LABCLIA [id number] [place] [address] Nucleated RBC (Bld) [#/Vol] 10*3/uL Normal <0.01 [facility] Comment on above: Order Comment: Speci men Type: BLOOD SPECIMENOrdering Facility: [facility] Address: [address] [place] [address] Performed By: #### 5 7021-8 ####[facility] LABCLIA [id number] [place] [address] Nucleated RBC/100 WBC (Bld) [Ratio] 0.0 /100 WBC Normal [facility] Comment on above: Order Comment: Speci men Type: BLOOD SPECIMENOrdering Facility: [facility] Address: [address] [place] [address] Performed By: #### 5 7021-8 ####[facility] LABCLIA [id number] [place] [address] Platelet mean volume (Bld) [Entitic vol] 10.1 fL Normal 9.0-12.7 [facility] Comment on above: Order Comment: Speci men Type: BLOOD SPECIMENOrdering Facility: [facility] Address: [address] [place] [address] Performed By: #### 5 7021-8 ####[facility] LABCLIA [id number] [place] [address] Platelets (Bld) [#/Vol] 229 10*3/uL Normal 150-400 [facility] Comment on above: Order Comment: Speci men Type: BLOOD SPECIMENOrdering Facility: [facility] Address: [address] [place] [address] Performed By: #### 5 7021-8 ####[facility] LABCLIA [id number] [place] [address] RBC (Bld) [#/Vol] 4.55 10*6/uL Normal 4.20-6.00 [facility] Comment on above: Order Comment: Speci men Type: BLOOD SPECIMENOrdering Facility: [facility] Address: [address] [place] [address] Performed By: #### 5 7021-8 ####[facility] [id number] [place] [address] WBC (Bld) [#/Vol] 7.43 10*3/uL Normal 3.70-11.00 [facility] Comment on above: Order Comment: Speci men Type: BLOOD SPECIMENOrdering Facility: [facility] Address: [address] [place] [address] Performed By: #### 5 7021-8 ####[facility] LABIA [id number] [place] [address] CNOVSPon 02-06-2024 CNOVSP Visit (SP) Office (H EMASA) -- JORDAN BENNETT ([id number]) 1975 M Date Time Provider Department 02/06/24 [...] and symmetrical PATHOLOGY: 08/03/2021 Radical right orchiectomy ([facility]) Classic seminoma testicle: 3.2 x 3.0 [...] No FDG (more content not included)... Normal [facility] Comprehensive metabolic 2000 panelon 02-06-2024 Albumin [Mass/Vol] 4.2 g/dL Normal 3.9-4.9 [facility] Comment on above: Order Comment: Speci men Type: BLOOD SPECIMENOrdering Facility: [facility] Address: [address] [place] [address] Performed By: #### 2 532-0, ####[facility] LABCLIA [id number] [place] [address] ALP [Catalytic activity/Vol] 66 U/L Normal 38-113 [facility] Comment on above: Order Comment: Speci men Type: BLOOD SPECIMENOrdering Facility: [facility] Address: [address] [place] [address] Performed By: #### 2 532-0, ####[facility] LABCLIA [id number] [place] [address] ALT [Catalytic activity/Vol] 24 U/L Normal 10-54 [facility] Comment on above: Order Comment: Speci men Type: BLOOD SPECIMENOrdering Facility: [facility] Address: [address] [place] [address] Performed By: #### 2 532-0, ####[facility] LABCLIA [id number] [place] [address] Anion gap [Moles/Vol] 13 mmol/L Normal 8-15 [facility] Comment on above: Order Comment: Speci men Type: BLOOD SPECIMENOrdering Facility: [facility] Address: [address] [place] [address] Performed By: #### 2 532-0, ####[facility] LABCLIA [id number] [place] [address] AST [Catalytic activity/Vol] 17 U/L Normal 14-40 [facility] Comment on above: Order Comment: Speci men Type: BLOOD SPECIMENOrdering Facility: [facility] Address: [address] [place] [address] Performed By: #### 2 532-0, ####[facility] LABCLIA [id number] [place] [address] Bilirubin [Mass/Vol] 0.3 mg/dL Normal 0.2-1.3 [facility] Comment on above: Order Comment: Speci men Type: BLOOD SPECIMENOrdering Facility: [facility] Address: [address] [place] [address] Performed By: #### 2 532-0, ####[facility] LABCLIA [id number] [place] [address] Calcium [Mass/Vol] 9.5 mg/dL Normal 8.5-10.2 [facility] Comment on above: Order Comment: Speci men Type: BLOOD SPECIMENOrdering Facility: [facility] Address: [address] [place] [address] Performed By: #### 2 532-0, ####[facility] LABCLIA [id number] [place] [address] Chloride [Moles/Vol] 103 mmol/L Normal 98-107 [facility] Comment on above: Order Comment: Speci men Type: BLOOD SPECIMENOrdering Facility: [facility] Address: [address] [place], [place] [address] Performed By: #### 2 532-0, ####[facility] LABCLIA [id number] [place] [address] CO2 [Moles/Vol] 22 mmol/L Normal 22-30 [facility] Comment on above: Order Comment: Speci men Type: BLOOD SPECIMENOrdering Facility: [facility] Address: [address] [place] [address] Performed By: #### 2 532-0, ####[facility] LABIA [id number] [place] [address] Creatinine [Mass/Vol] 1.07 mg/dL Normal 0.73-1.22 [facility] Comment on above: Order Comment: Speci men Type: BLOOD SPECIMENOrdering Facility: [facility] Address: [address] [place] [address] Performed By: #### 2 532-0, 85550-1 ####[facility] LABCLIA [id number] [place] [address] Creatinine and Glomerular filtration rate.predicted panel (S/P/Bld) 85 mL/min/1.73m??? Normal >=60 [facility] Comment on above: Order Comment: Delores phelps Type: BLOOD SPECIMENOrdering Facility: [facility] Address: [address] [place] [address] Result Comment: Stefanie mated Glomerular Filtration Rate [...] actual GFR. Performed By: #### 2 532-0, 96833-9 ####[facility] LABCLIA [id number] [place] [address] Glucose [Mass/Vol] 135 mg/dL High 74-99 [facility] Comment on above: Order Comment: Delores phelps Type: BLOOD SPECIMENOrdering Facility: [facility] Address: [address] [place] [address] Result Comment: The Stateless Diabetes Association (ADA) provides guidance for cutoff [...] Standards of Medical Care in Diabetes 2016, Stateless Diabetes Association. Diabetes Care. 2016.39(Suppl 1). Performed By: #### 2 532-0, 92762-0 ####[facility] LABCLIA [id number] [place] [address] Potassium [Moles/Vol] 3.8 mmol/L Normal 3.7-5.1 [facility] Comment on above: Order Comment: Speci men Type: BLOOD SPECIMENOrdering Facility: [facility] Address: [address] [place] [address] Performed By: #### 2 532-0, 14682-2 ####[facility] LABCLIA [id number] [place] [address] Protein [Mass/Vol] 6.6 g/dL Normal 6.3-8.0 [facility] Comment on above: Order Comment: Speci men Type: BLOOD SPECIMENOrdering Facility: [facility] Address: [address] [place] [address] Performed By: #### 2 532-0, 34146-7 ####[facility] LABIA [id number] [place] [address] Sodium [Moles/Vol] 138 mmol/L Normal 136-144 [facility] Comment on above: Order Comment: Speci men Type: BLOOD SPECIMENOrdering Facility: [facility] Address: [address] [place] [address] Performed By: #### 2 532-0, ####[facility] LABIA [id number] [place] [address] Urea nitrogen [Mass/Vol] 21 mg/dL Normal 9-24 [facility] Comment on above: Order Comment: Speci men Type: BLOOD SPECIMENOrdering Facility: [facility] Address: [address] [place] [address] Performed By: #### 2 532-0, 23589-4 ####[facility] LABIA [id number] [place] [address] LDH SerPl-cCncon 02-06-2024 LDH [Catalytic activity/Vol] 195 U/L Normal 135-225 [facility] Comment on above: Order Comment: Speci men Type: BLOOD SPECIMENOrdering Facility: [facility] Address: [address] [place] [address] Performed By: #### 2 532-0, 43871-4 ####[facility] LABCLIA [id number] [place] [address] CNPDanielle 10-28-2023 CNPN Telephone (RADTSA) -- JORDAN BENNETT ([id number]) 1975 M Date Time Provider Department 10/28/23 JORDAN PETERS During your visit today, we recorded the following information about you: Gavin Rea LPN 10/28/2023 3:29 PM Signed Jordan completed radiation [...] Dr. Peters and Dr. Jasso please advise. MAIKEL Alonso Ariana, LPN 10/28/2023 4:09 PM Signed PSS and Michelle: Please schedule as indicated per Dr. Urbina. BRM/NEO: Lab orders and CT orders pending your approval. Thanks MAIKEL Alonso Tiffany 10/29/2023 8:19 AM Signed Patient [...] BLOOD COUNT AND DIFFERENTIAL [SQCBCDIF] Order #: [id number] FUTURE ALPHA FETOPROTEIN [SQAFP] Order #: [id number] FUTURE BETA HCG QUANT TUMOR MARKER [SQBHCG] Order #: [id number] FUTURE COMPREHENSIVE METABOLIC PANEL [SQCMP] Order #: [id number] FUTURE LACTATE DEHYDROGENASE [SQLD6] Order #: [id number] FUTURE CT CHEST W IVCON [9779377] Order #: [id number] FUTURE iv contrast (will be provided with [...] 1 EachRfl: 0 CT ABD/PEL W IVCON [[id number]] Order #: [id number] FUTURE iv contrast (will be provided with [...] as ne (more content not included)... 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 Normal [facility] PET+CT Guidance for localiza tion of tumor of Skull base to mid-thigh-- W 18F-FDG Tammi 10-18-2023 IMPRESSION: HEAD/NECK: * No FDG avid neoplastic [...] any questions regarding this interpretation, please call [phone]. If you are unable to reach us at the number above, please feel free to contact [facility] at [phone]. DIVISION OF RADIOLOGY * * *Final Report* [...] * Radiopharmaceutical Dose: 17.4 mCi * Radiopharmaceutical: S41-Mbtuputxerjclgsyao (FDG) COMPARISON: FDG PET/CT 06/07/2023 CORRELATION: No relevant imaging available RESULT: REFERENCES: SUV reference values: * Blood pool (descending aorta) activity: SUVmax 3.1 * Background liver activity: SUVmax 3.8; SUVmean 2.8 Floor Cleaner (topogram) images: No additional findings. Notes and [...] max 7.3. DIVISION OF RADIOLOGY Provider, [facility] - 10/18/2023 * * *Final Report* [...] * Radiopharmaceutical Dose: 17.4 mCi * Radiopharmaceutical: K37-Lnuuerqulmlyfwocht (FDG) COMPARISON: FDG PET/CT 06/07/2023 CORRELATION: No relevant imaging available RESULT: REFERENCES: SUV reference values: * Blood pool (descending aorta) activity: SUVmax 3.1 * Background liver activity: SUVmax 3.8; SUVmean 2.8 Floor Cleaner (topogram) images: No additional findings. Notes and [...] any questions regarding this interpretation, please call [phone]. If you are unable to reach us at the number above, please feel free to contact [facility] at [phone]. [facility] PET+CT Guidance for localiza tion of tumor of Skull base to mid-thigh-- W 18F-FDG IVOrdered By: Ccf Provider on 10-18-2023 [facility] BETA HCG QUANT TUMOR MARKERo n 10-17-2023 HCG.beta subunit Qn m[IU]/mL [facility] Comment on above: INTERPRETIVE INFORMA [...] reference intervals for this test in the [facility] Test Directory ([employer]). This test was developed and its performance characteristics determined by [facility]. It has not been cleared or approved by the [place] Food and Drug Administration. This test was performed in a CLIA certified laboratory and is intended for clinical purposes. Performed By: [facility] [address] [place] [address] Protocol Officer: Cam Archibald MD, PhD CLIA Number: [id number] HCG.beta subunit Qnon 2023 [facility] AFP [Mass/Vol]Ordered By: Piper Carrillo on 10-16-2023 Interpretation and review of laboratory results Normal [facility] ALPHA FETOPROTEIN BLOrdered By: Shaina Carrillo on 10-16-2023 AFP [Mass/Vol] ng/mL NINF - 11.0 ng/mL [facility] Comment on above: Result rechecked. The test [...] SerPl-mCncon 10-15-2023 AFP [Mass/Vol] ng/mL Normal <11.0 [facility] Comment on above: Order Comment: Speci men Type: BLOOD SPECIMENOrdering Facility: [facility] Address: [address] [place] [address] [place] [address] Result Comment: Resu lt rechecked. The test [...] used interchangeably. Performed By: #### 1 834-1 ####[facility] LABCLIA [id number] [place] [id number] [place] [address] OF [facility] BETA HCG QUANT TUMOR MARKERo n 10-15-2023 BETA HCG QUANT TUMOR MARKER <1 Normal 0-3 [facility] Comment on above: Order Comment: Speci men Type: BLOOD SPECIMENOrdering Facility: [facility] Address: [address] [place] [address] [place] [address] Result Comment: INTE RPRETIVE INFORMATION: Beta hCG, [...] reference intervals for this test in the [facility] Test Directory ([employer]news). This test was developed and its performance characteristics determined by [facility]. It has not been cleared or approved by the US Food and Drug Administration. This test was performed in a CLIA certified laboratory and is intended for clinical purposes. Performed By: [facility] [address] [place] [address] Protocol Officer: Cam Archibald MD, PhD CLIA Number: [id number] Performed By: #### B HCG ####[facility] LABORATORIESCLIA [id number] [place] [id number] CBC W Auto Differential pane l (Bld)on 10-15-2023 Basophils (Bld) [#/Vol] 0.03 10*3/uL [facility] Basophils/100 WBC (Bld) 0.5 % [facility] Differential cell count method Nom (Bld) Auto [facility] Eosinophils (Bld) [#/Vol] 0.10 10*3/uL [facility] Eosinophils/100 WBC (Bld) 1.8 % [facility] Erythrocyte distribution width (RBC) [Ratio] 13.0 % 11.5 - 15.0 % [facility] Hematocrit (Bld) [Volume fraction] 37.4 % Low 39.0 - 51.0 % [facility] Hemoglobin (Bld) [Mass/Vol] 13.2 g/dL 13.0 - 17.0 g/dL [facility] Immature granulocytes (Bld) [#/Vol] 0.03 10*3/uL [facility] Immature granulocytes/100 WBC (Bld) 0.5 % [facility] Interpretation and review of laboratory results Abnormal [facility] Lymphocytes (Bld) [#/Vol] 0.88 10*3/uL Low [facility] Lymphocytes/100 WBC (Bld) 15.5 % [facility] MCH (RBC) [Entitic mass] 30.6 pg 26.0 - 34.0 pg [facility] MCHC (RBC) [Mass/Vol] 35.3 g/dL 30.5 - 36.0 g/dL [facility] MCV (RBC) [Entitic vol] 86.6 fL 80.0 - 100.0 fL [facility] Monocytes (Bld) [#/Vol] 0.51 10*3/uL [facility] Monocytes/100 WBC (Bld) 9.0 % [facility] Neutrophils (Bld) [#/Vol] 4.11 10*3/uL [facility] Neutrophils/100 WBC (Bld) 72.7 % [facility] Nucleated RBC (Bld) [#/Vol] [facility] Nucleated RBC/100 WBC (Bld) [Ratio] 0.0 % /100 WBC [facility] Platelet mean volume (Bld) [Entitic vol] 9.8 fL 9.0 - 12.7 fL [facility] Platelets (Bld) [#/Vol] 207 10*3/uL [facility] RBC (Bld) [#/Vol] 4.32 10*6/uL 4.20 - 6.0 0 m/uL [facility] WBC (Bld) [#/Vol] 5.66 10*3/uL [facility] Basophils (Bld) [#/Vol] 0.03 10*3/uL Normal <0.11 [facility] Comment on above: Order Comment: Speci men Type: BLOOD SPECIMENOrdering Facility: [facility] Address: [address] [place] [address] Performed By: #### 5 7021-8 ####[facility] LABCLIA [id number] [place] [address] Basophils/100 WBC (Bld) 0.5 % Normal [facility] Comment on above: Order Comment: Speci men Type: BLOOD SPECIMENOrdering Facility: [facility] Address: [address] [place] [address] Performed By: #### 5 7021-8 ####[facility] LABCLIA [id number] [place] [address] Differential cell count method Nom (Bld) Auto Normal [facility] Comment on above: Order Comment: Speci men Type: BLOOD SPECIMENOrdering Facility: [facility] Address: [address] [place] [address] Performed By: #### 5 7021-8 ####[facility] LABCLIA [id number] [place] [address] Eosinophils (Bld) [#/Vol] 0.10 10*3/uL Normal <0.46 [facility] Comment on above: Order Comment: Speci men Type: BLOOD SPECIMENOrdering Facility: [facility] Address: [address] [place] [address] Performed By: #### 5 7021-8 ####[facility] LABCLIA [id number] [place] [address] Eosinophils/100 WBC (Bld) 1.8 % Normal [facility] Comment on above: Order Comment: Speci men Type: BLOOD SPECIMENOrdering Facility: [facility] Address: [address] [place] [address] Performed By: #### 5 7021-8 ####[facility] LABCLIA [id number] [place] [address] Erythrocyte distribution width (RBC) [Ratio] 13.0 % Normal 11.5-15.0 [facility] Comment on above: Order Comment: Speci men Type: BLOOD SPECIMENOrdering Facility: [facility] Address: [address] [place] [address] Performed By: #### 5 7021-8 ####[facility] LABIA [id number] [place] [address] Hematocrit (Bld) [Volume fraction] 37.4 % Low 39.0-51.0 [facility] Comment on above: Order Comment: Speci men Type: BLOOD SPECIMENOrdering Facility: [facility] Address: [address] [place] [address] Performed By: #### 5 7021-8 ####[facility] LABIA [id number] [place] [address] Hemoglobin (Bld) [Mass/Vol] 13.2 g/dL Normal 13.0-17.0 [facility] Comment on above: Order Comment: Speci men Type: BLOOD SPECIMENOrdering Facility: [facility] Address: [address] [place] [address] Performed By: #### 5 7021-8 ####[facility] LABCLIA [id number] [place] [address] Immature granulocytes (Bld) [#/Vol] 0.03 10*3/uL Normal <0.10 [facility] Comment on above: Order Comment: Speci men Type: BLOOD SPECIMENOrdering Facility: [facility] Address: [address] [place] [address] Performed By: #### 5 7021-8 ####[facility] LABCLIA [id number] [place] [address] Immature granulocytes/100 WBC (Bld) 0.5 % Normal [facility] Comment on above: Order Comment: Speci men Type: BLOOD SPECIMENOrdering Facility: [facility] Address: [address] [place] [address] Performed By: #### 5 7021-8 ####[facility] LABCLIA [id number] [place] [address] Lymphocytes (Bld) [#/Vol] 0.88 10*3/uL Low 1.00-4.00 [facility] Comment on above: Order Comment: Speci men Type: BLOOD SPECIMENOrdering Facility: [facility] Address: [address] [place] [address] Performed By: #### 5 7021-8 ####[facility] LABCLIA [id number] [place] [address] Lymphocytes/100 WBC (Bld) 15.5 % Normal [facility] Comment on above: Order Comment: Speci men Type: BLOOD SPECIMENOrdering Facility: [facility] [facility] Address: [address] [place] [address] Performed By: #### 5 7021-8 ####[facility] LABCLIA [id number] [place] [address] MCH (RBC) [Entitic mass] 30.6 pg Normal 26.0-34.0 [facility] Comment on above: Order Comment: Speci men Type: BLOOD SPECIMENOrdering Facility: [facility] Address: [address] [place] [address] Performed By: #### 5 7021-8 ####[facility] LABCLIA [id number] [place] [address] MCHC (RBC) [Mass/Vol] 35.3 g/dL Normal 30.5-36.0 [facility] Comment on above: Order Comment: Speci men Type: BLOOD SPECIMENOrdering Facility: [facility] Address: [address] [place] [address] Performed By: #### 5 7021-8 ####[facility] LABCLIA [id number] [place] [address] MCV (RBC) [Entitic vol] 86.6 fL Normal 80.0-100.0 [facility] Comment on above: Order Comment: Speci men Type: BLOOD SPECIMENOrdering Facility: [facility] Address: [address] [place] [address] Performed By: #### 5 7021-8 ####[facility] LABCLIA [id number] [place] [address] Monocytes (Bld) [#/Vol] 0.51 10*3/uL Normal <0.87 [facility] Comment on above: Order Comment: Speci men Type: BLOOD SPECIMENOrdering Facility: [facility] Address: [address] [place] [address] Performed By: #### 5 7021-8 ####[facility] LABCLIA [id number] [place] [address] Monocytes/100 WBC (Bld) 9.0 % Normal [facility] Comment on above: Order Comment: Speci men Type: BLOOD SPECIMENOrdering Facility: [facility] Address: [address] [place] [address] Performed By: #### 5 7021-8 ####[facility] LABCLIA [id number] [place] [address] Neutrophils (Bld) [#/Vol] 4.11 10*3/uL Normal 1.45-7.50 [facility] Comment on above: Order Comment: Speci men Type: BLOOD SPECIMENOrdering Facility: [facility] Address: [address] [place] [address] Performed By: #### 5 7021-8 ####[facility] LABCLIA [id number] [place] [address] Neutrophils/100 WBC (Bld) 72.7 % Normal [facility] Comment on above: Order Comment: Speci men Type: BLOOD SPECIMENOrdering Facility: [facility] Address: [address] [place] [address] Performed By: #### 5 7021-8 ####[facility] LABCLIA [id number] [place] [address] Nucleated RBC (Bld) [#/Vol] 10*3/uL Normal <0.01 [facility] Comment on above: Order Comment: Speci men Type: BLOOD SPECIMENOrdering Facility: [facility] Address: [address] [place] [address] Performed By: #### 5 7021-8 ####[facility] LABCLIA [id number] [place] [address] Nucleated RBC/100 WBC (Bld) [Ratio] 0.0 /100 WBC Normal [facility] Comment on above: Order Comment: Speci men Type: BLOOD SPECIMENOrdering Facility: [facility] Address: [address] [place] [address] Performed By: #### 5 7021-8 ####[facility] LABCLIA [id number] [place] [address] Platelet mean volume (Bld) [Entitic vol] 9.8 fL Normal 9.0-12.7 [facility] Comment on above: Order Comment: Speci men Type: BLOOD SPECIMENOrdering Facility: [facility] Address: [address] [place] [address] Performed By: #### 5 7021-8 ####[facility] LABCLIA [id number] [place] [address] Platelets (Bld) [#/Vol] 207 10*3/uL Normal 150-400 [facility] Comment on above: Order Comment: Speci men Type: BLOOD SPECIMENOrdering Facility: [facility] Address: [address] [place] [address] Performed By: #### 5 7021-8 ####[facility] LABCLIA [id number] [place] [address] RBC (Bld) [#/Vol] 4.32 10*6/uL Normal 4.20-6.00 [facility] Comment on above: Order Comment: Speci men Type: BLOOD SPECIMENOrdering Facility: [facility] Address: [address] [place], [place] [address] Performed By: #### 5 7021-8 ####[facility] LABIA [id number] [place] [address] WBC (Bld) [#/Vol] 5.66 10*3/uL Normal 3.70-11.00 [facility] Comment on above: Order Comment: Speci men Type: BLOOD SPECIMENOrdering Facility: [facility] Address: [address] [place] [address] Performed By: #### 5 7021-8 ####[facility] LABIA [id number] [place] [address] GLUCOSE, BLOOD (POC)on 10-14 Glucose [Mass/Vol] 91 mg/dL 74 - 99 mg/dL [facility] Comment on above: Location:[facility], [address] [place] [address] , [place], [place], [address] The Accu-Chek Inform II glucose meter has [...] blood gas instrument) in the above situations. [facility] LD LACTATE DEHYDROOrdered By : Stephanie Abbott on 10-15-2023 LDH [Catalytic activity/Vol] 211 U/L 135 - 225 U/L [facility] Comment on above: Hemolysis present. T he [...] LDH [Catalytic activity/Vol] 211 U/L Normal 135-225 [facility] Comment on above: Order Comment: Speci men Type: BLOOD SPECIMENOrdering Facility: [facility] Address: [facility] [place] [address] Result Comment: Hemo lysis present. The origin [...] clinically indicated. Performed By: #### 2 532-0 ####[facility] LABCLIA [id number] [place] [address] LDH [Catalytic activity/Vol] Ordered By: Stephanie Abbott on 10-15-2023 Interpretation and review of laboratory results Normal [facility] NM PET/CT SKULL-THIGH SUBQon 10-15-2023 NM PET/CT SKULL-THIGH [...] * Radiopharmaceutical Dose: 17.4 mCi * Radiopharmaceutical: H96-Aakzsjhnwptxffxbyz (FDG) COMPARISON: FDG PET/CT 06/07/2023 CORRELATION: No relevant imaging available RESULT: REFERENCES: SUV reference values: * Blood pool (descending aorta) activity: SUVmax 3.1 * Background liver activity: SUVmax 3.8; SUVmean 2.8 Floor Cleaner (topogram) images: No additional findings. Notes and [...] any questions regarding this interpretation, please call [phone]. If you are unable to reach us at the number above, please feel free to contact [facility] eRadiology at [phone]. [id number] Normal [facility] PET+CT Guidance for localiza tion of tumor of Skull base to mid-thigh-- W 18F-FDG Tammi 10-15-2023 Radiology Study observation (narrative) [facility] Consultation Noteon 08-19-19 Consultation Note [id number] Normal [facility] CNOVon 08-13-2023 CNOV Office Visit (RADTSA ) -- JORDAN BENNETT ([id number]) 1975 M Date Time Provider Department 08/13/23 [...] status post right radical orchiectomy, stage IB [id number] After approximately 2 years of surveillance for [...] status post right radical orchiectomy, stage IB [id number] After approximately 2 years of surveillance for [...] MD cc: Ashli Ni DO [address] [address] Gavin Arnett LPN 10/15/2023 11:25 AM Signed Addended by: GAVIN REA on: 10/15/2023 11:25 AM Modules accepted: Orders Allergies As of Date: 08/13/2023 Noted Allergy Reaction PENICILLINS 08/23/2021 2 - Rash SHELLFISH CONTAINING PRODUCTS 08/23/2021 14 - Other: See Comments Date Reviewed: 08/13/2023 Reviewed by: Radha Skinner RN - Fully Assessed Reason for Visit: Post Radiation Treatment Follow Up [[id number]] Primary Visit Diagnosis:Malignant neoplasm of testicle, unspecified laterality, 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] Order(s):NM PET/CT SKULL-THIGH SUBSEQUENT [9941775] Order #: [id number] FUTURE CBC + DIFF [SQCBCDIF] Order #: [id number] FUTURE LD LACTATE DEHYDRO [SQLD6] Order #: [id number] FUTURE BETA HCG QUANT TUMOR MARKER [SQBHCG] Order #: [id number] FUTURE ALPHA FETOPROTEIN BL [SQAFP] Order #: [id number] FUTURE CBC + DIFF [SQCBCDIF] Order #: [id number] FUT (more content not included)... Normal [facility] CNPNon 08-09-2023 CNPN Telephone (NCCAP) -- JORDAN BENNETT ([id number]) 1975 M Date Time Provider Department 08/09/23 [facility] During your visit today, we recorded the [...] right testis (HCC) [C62.1*02/14/2023 Encounter Status:Closed by JMAIE DOLL on 08/09/23 Normal [facility] CNOVon 07-29-2023 CNOV Office Visit (RADTSA ) -- JORDAN BENNETT ([id number]) 1975 M Date Time Provider Department 07/29/23 9:25 AM Dimitry JASSO During your visit today, we recorded the following information about you: Dimitry Jasso MD 07/29/2023 10:10 AM Signed Radiation Oncology - On Treatment Review (OTR) Note PATIENT NAME: Jordan Bennett PATIENT DIAGNOSIS: Testicular cancer, right, 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 COURSE: definitive Current [...] Encounter Status:Closed by Dimitry JASSO on 07/29/23 Normal [facility] 07-26-2023 [facility] Telephone (RADTSA) -- JORDAN BENNETT ([id number]) 1975 M Date Time Provider Department 07/26/23 Dimitry JASSO During your visit today, we recorded the following information about you: Gavin Rea LPN 07/26/2023 10:55 AM Signed Sudhir, pt's spouse, left a message stating Fausto has not received prior authorization for the new Zofran prescription sent yesterday. I called and spoke to [facility] pharmacy and was told they received the authorization this a.m. but patient's insurance will not allow a refill until 07/31/23 even with a new prescription and increased frequency instructions. [facility] Pharmacists/Dr. Kelly: Do you have any recommendations? Dr. Kelly to possibly prescribe compazine in the interim? Thanks Gavin Rea RN SawantEboni baumann, [facility] 07/26/2023 12:10 PM Signed I called [facility] and obtained an override so the patient is able to fill the Ondansetron for 90 today. Gavin Rea LPN 07/26/2023 12:13 PM Signed I notified Sudhir that Eboni obtained an override from the insurance and they should be able to machine operator hop picker the original prescription from [facility]. Sudhir is very thankful for the extra [...] Status:Closed by GAVIN REA on 07/26/23 Normal [facility] CBC W Auto Differential pane l (Bld)on 07-25-2023 Basophils (Bld) [#/Vol] <0.11 k/uL [facility] Basophils/100 WBC (Bld) 0.5 % [facility] Differential cell count method Nom (Bld) Auto [facility] Eosinophils (Bld) [#/Vol] 0.12 10*3/uL <0.46 k/uL [facility] Eosinophils/100 WBC (Bld) 3.1 % [facility] Erythrocyte distribution width (RBC) [Ratio] 12.2 % 11.5 - 15.0 % [facility] Hematocrit (Bld) [Volume fraction] 44.7 % 39.0 - 51.0 % [facility] Hemoglobin (Bld) [Mass/Vol] 15.5 g/dL 13.0 - 17.0 g/dL [facility] Immature granulocytes (Bld) [#/Vol] <0.10 k/uL [facility] Immature granulocytes/100 WBC (Bld) 0.5 % [facility] Lymphocytes (Bld) [#/Vol] 0.54 10*3/uL Low 1.00 - 4.00 k/uL [facility] Lymphocytes/100 WBC (Bld) 14.0 % [facility] MCH (RBC) [Entitic mass] 29.2 pg 26.0 - 34.0 pg [facility] MCHC (RBC) [Mass/Vol] 34.7 g/dL 30.5 - 36.0 g/dL [facility] MCV (RBC) [Entitic vol] 84.2 fL 80.0 - 100.0 fL [facility] Monocytes (Bld) [#/Vol] 0.34 10*3/uL <0.87 k/uL [facility] Monocytes/100 WBC (Bld) 8.8 % [facility] Neutrophils (Bld) [#/Vol] 2.81 10*3/uL 1.45 - 7.50 k/uL [facility] Neutrophils/100 WBC (Bld) 73.1 % [facility] Nucleated RBC (Bld) [#/Vol] <0.01 k/uL [facility] Nucleated RBC/100 WBC (Bld) [Ratio] 0.0 /100 WBC [facility] Platelet mean volume (Bld) [Entitic vol] 10.1 fL 9.0 - 12.7 fL [facility] Platelets (Bld) [#/Vol] 200 10*3/uL 150 - 400 k/uL [facility] RBC (Bld) [#/Vol] 5.31 10*6/uL 4.20 - 6.0 0 m/uL [facility] WBC (Bld) [#/Vol] 3.85 10*3/uL 3.70 - 11.00 k/uL [facility] Basophils (Bld) [#/Vol] 10*3/uL Normal <0.11 [facility] Comment on above: Order Comment: Speci men Type: BLOOD SPECIMENOrdering Facility: [facility] Address: [address] [place] [address] Performed By: #### 5 7021-8 ####[facility] LABCLIA [id number] [place] [address] Basophils/100 WBC (Bld) 0.5 % Normal [facility] Comment on above: Order Comment: Speci men Type: BLOOD SPECIMENOrdering Facility: [facility] Address: [address] [place] [address] Performed By: #### 5 7021-8 ####[facility] LABCLIA [id number] [place] [address] Differential cell count method Nom (Bld) Auto Normal [facility] Comment on above: Order Comment: Speci men Type: BLOOD SPECIMENOrdering Facility: [facility] Address: [address] [place] [address] Performed By: #### 5 7021-8 ####[facility] LABCLIA [id number] [place] [address] Eosinophils (Bld) [#/Vol] 0.12 10*3/uL Normal <0.46 [facility] Comment on above: Order Comment: Speci men Type: BLOOD SPECIMENOrdering Facility: [facility] Address: [address] [place] [address] Performed By: #### 5 7021-8 ####[facility] LABCLIA [id number] [place] [address] Eosinophils/100 WBC (Bld) 3.1 % Normal [facility] Comment on above: Order Comment: Speci men Type: BLOOD SPECIMENOrdering Facility: [facility] Address: [address] [place] [address] Performed By: #### 5 7021-8 ####[facility] LABCLIA [id number] [place] [address] Erythrocyte distribution width (RBC) [Ratio] 12.2 % Normal 11.5-15.0 [facility] Comment on above: Order Comment: Speci men Type: BLOOD SPECIMENOrdering Facility: [facility] Address: [address] [place] [address] Performed By: #### 5 7021-8 ####[facility] LABCLIA [id number] [place] [address] Hematocrit (Bld) [Volume fraction] 44.7 % Normal 39.0-51.0 [facility] Comment on above: Order Comment: Speci men Type: BLOOD SPECIMENOrdering Facility: [facility] Address: [address] [place] [address] Performed By: #### 5 7021-8 ####[facility] LABCLIA [id number] [place] [address] Hemoglobin (Bld) [Mass/Vol] 15.5 g/dL Normal 13.0-17.0 [facility] Comment on above: Order Comment: Speci men Type: BLOOD SPECIMENOrdering Facility: [facility] Address: [address] [place] [address] Performed By: #### 5 7021-8 ####[facility] LABCLIA [id number] [place] [address] Immature granulocytes (Bld) [#/Vol] 10*3/uL Normal <0.10 [facility] Comment on above: Order Comment: Speci men Type: BLOOD SPECIMENOrdering Facility: [facility] Address: [address] [place] [address] Performed By: #### 5 7021-8 ####[facility] LABCLIA [id number] [place] [address] Immature granulocytes/100 WBC (Bld) 0.5 % Normal [facility] Comment on above: Order Comment: Speci men Type: BLOOD SPECIMENOrdering Facility: [facility] Address: [address] [place] [address] Performed By: #### 5 7021-8 ####[facility] LABCLIA [id number] [place] [address] Lymphocytes (Bld) [#/Vol] 0.54 10*3/uL Low 1.00-4.00 [facility] Comment on above: Order Comment: Speci men Type: BLOOD SPECIMENOrdering Facility: [facility] Address: [address] [place] [address] Performed By: #### 5 7021-8 ####[facility] LABCLIA [id number] [place] [address] Lymphocytes/100 WBC (Bld) 14.0 % Normal [facility] Comment on above: Order Comment: Speci men Type: BLOOD SPECIMENOrdering Facility: [facility] Address: [address] [place] [address] Performed By: #### 5 7021-8 ####[facility] LABCLIA [id number] [place] [address] MCH (RBC) [Entitic mass] 29.2 pg Normal 26.0-34.0 [facility] Comment on above: Order Comment: Speci men Type: BLOOD SPECIMENOrdering Facility: [facility] Address: [address] [place] [address] Performed By: #### 5 7021-8 ####[facility] LABCLIA [id number] [place] [address] MCHC (RBC) [Mass/Vol] 34.7 g/dL Normal 30.5-36.0 [facility] Comment on above: Order Comment: Speci men Type: BLOOD SPECIMENOrdering Facility: [facility] Address: [address] [place] [address] Performed By: #### 5 7021-8 ####[facility] LABIA [id number] [place] [address] MCV (RBC) [Entitic vol] 84.2 fL Normal 80.0-100.0 [facility] Comment on above: Order Comment: Speci men Type: BLOOD SPECIMENOrdering Facility: [facility] Address: [address] [place] [address] Performed By: #### 5 7021-8 ####[facility] LABCLIA [id number] [place] [address] Monocytes (Bld) [#/Vol] 0.34 10*3/uL Normal <0.87 [facility] Comment on above: Order Comment: Speci men Type: BLOOD SPECIMENOrdering Facility: [facility] Address: [address] [place] [address] Performed By: #### 5 7021-8 ####[facility] LABIA [id number] [place] [address] Monocytes/100 WBC (Bld) 8.8 % Normal [facility] Comment on above: Order Comment: Speci men Type: BLOOD SPECIMENOrdering Facility: [facility] Address: [address] [place] [address] Performed By: #### 5 7021-8 ####[facility] LABCLIA [id number] [place] [address] Neutrophils (Bld) [#/Vol] 2.81 10*3/uL Normal 1.45-7.50 [facility] Comment on above: Order Comment: Speci men Type: BLOOD SPECIMENOrdering Facility: [facility] Address: [address] [place] [address] Performed By: #### 5 7021-8 ####[facility] LABCLIA [id number] [place] [address] Neutrophils/100 WBC (Bld) 73.1 % Normal [facility] Comment on above: Order Comment: Speci men Type: BLOOD SPECIMENOrdering Facility: [facility] Address: [address] [place] [address] Performed By: #### 5 7021-8 ####[facility] LABCLIA [id number] [place] [address] Nucleated RBC (Bld) [#/Vol] 10*3/uL Normal <0.01 [facility] Comment on above: Order Comment: Speci men Type: BLOOD SPECIMENOrdering Facility: [facility] Address: [address] [place] [address] Performed By: #### 5 7021-8 ####[facility] LABCLIA [id number] [place] [address] Nucleated RBC/100 WBC (Bld) [Ratio] 0.0 /100 WBC Normal [facility] Comment on above: Order Comment: Speci men Type: BLOOD SPECIMENOrdering Facility: [facility] Address: [address] [place] [address] Performed By: #### 5 7021-8 ####[facility] LABCLIA [id number] [place] [address] Platelet mean volume (Bld) [Entitic vol] 10.1 fL Normal 9.0-12.7 [facility] Comment on above: Order Comment: Speci men Type: BLOOD SPECIMENOrdering Facility: [facility] Address: [address] [place] [address] Performed By: #### 5 7021-8 ####[facility] LABIA [id number] [place] [address] Platelets (Bld) [#/Vol] 200 10*3/uL Normal 150-400 [facility] Comment on above: Order Comment: Speci men Type: BLOOD SPECIMENOrdering Facility: [facility] Address: [address] [place] [address] Performed By: #### 5 7021-8 ####[facility] [id number] [place] [address] RBC (Bld) [#/Vol] 5.31 10*6/uL Normal 4.20-6.00 [facility] Comment on above: Order Comment: Speci men Type: BLOOD SPECIMENOrdering Facility: [facility] Address: [address] [place] [address] Performed By: #### 5 7021-8 ####[facility] LABIA [id number] [place] [address] WBC (Bld) [#/Vol] 3.85 10*3/uL Normal 3.70-11.00 [facility] Comment on above: Order Comment: Speci men Type: BLOOD SPECIMENOrdering Facility: [facility] Address: [address] [place] [address] Performed By: #### 5 7021-8 ####[facility] [id number] [place] [address] CNOVon 07-25-2023 CNOV Office Visit (RADTSA ) -- JORDAN BENNETT ([id number]) 1975 M Date Time Provider Department 07/25/23 9:45 AM LAB/PORT RADT [facility] During [...] [C62.90] Order(s):CBC + DIFF [SQCBCDIF] Order #: [id number]. #:[id number] Prescriptions as of 07/25/2023 - ondansetron orally [...] right testis (HCC) [C62.1*02/14/2023 Visit Notes: >> Rona ZAKI [facility] Jul 25, 2023 9:53 AM Status: [...] Encounter Status:Closed by GAVIN REA on 07/25/23 [facility] 07-25-2023 [facility] Telephone ([employer]) -- JORDAN BENNETT ([id number]) 1975 M Date Time Provider Department 07/25/23 Dimitry JASSO During your visit today, we recorded the following information about you: Gavin Rea LPN 07/25/2023 1:18 PM Signed Sudhir, pt's , called stating there is some sort of issue with Jordan's new Zofran prescription. I called [facility]ust[facility] and Lisa in the pharmacy said pt's insurance will only cover a 30 day supply without a prior auth. Lisa will send an auth request to our office. Sudhir notified of the above and will check back with their local pharmacy for an update. Thanks Gavin Rea, Maye Clayton, [facility] 07/25/2023 1:40 PM Signed Ambulatory Pharmacy Prior Authorization Note Provider Intervention Required?: No- Pharmacy completed on your behalf. Rx Plan: Other: Prien Drug: ondansetron 8 mg tablets 90 per 30 days Cover My Meds Ortiz: [id number] Determination: Approved Prior Authorization/Case #: [id number] Prior Authorization Expiration: 07/24/2024 Time to PA Submission in CMM: 15 min Time to PA Determination in CMM: Same day Additional Information: For questions relating to this submission, please contact [facility] at [phone] Maye Mortensen [facility] 07/25/2023 1:42 PM Signed Prior authorization approved, he will be tablets to get 90 tablets per month. Jt Mortensen, PharmD, BCOP Allergies As of Date: 07/25/2023 Noted [...] Encounter Status:Closed by GAVIN REA on 07/25/23 Normal [facility] CNPDanielle 07-24-2023 CNPN Telephone (RADTSA) -- JORDAN BENNETT ([id number]) 1975 M Date Time Provider Department 07/24/23 [...] denies feeling lightheaded or dizzy. Please advise. MAIKEL Alonso Ariana, LPN 07/24/2023 3:18 PM Signed [...] Encounter Status:Closed by GAVIN REA on 07/25/23 [facility] CNOVon 07-22-2023 CNOV Office Visit (CHAPO ) -- JORDAN BENNETT ([id number]) 1975 M Date Time Provider Department 07/22/23 [...] status post right radical orchiectomy, stage IB [id number], initially undergoing surveillance only. COURSE: definitive Current [...] Status:Closed by Dimitry JASSO on 07/22/23 Normal [facility] CBC W Auto Differential pane l (Bld)on 07-18-2023 Basophils (Bld) [#/Vol] 0.04 10*3/uL <0.11 k/uL [facility] Basophils/100 WBC (Bld) 0.6 % [facility] Differential cell count method Nom (Bld) Auto [facility] Eosinophils (Bld) [#/Vol] 0.11 10*3/uL <0.46 k/uL [facility] Eosinophils/100 WBC (Bld) 1.6 % [facility] Erythrocyte distribution width (RBC) [Ratio] 12.2 % 11.5 - 15.0 % [facility] Hematocrit (Bld) [Volume fraction] 46.9 % 39.0 - 51.0 % [facility] Hemoglobin (Bld) [Mass/Vol] 16.3 g/dL 13.0 - 17.0 g/dL [facility] Immature granulocytes (Bld) [#/Vol] <0.10 k/uL [facility] Immature granulocytes/100 WBC (Bld) 0.3 % [facility] Lymphocytes (Bld) [#/Vol] 1.21 10*3/uL 1.00 - 4.00 k/uL [facility] Lymphocytes/100 WBC (Bld) 17.1 % [facility] MCH (RBC) [Entitic mass] 29.4 pg 26.0 - 34.0 pg [facility] MCHC (RBC) [Mass/Vol] 34.8 g/dL 30.5 - 36.0 g/dL [facility] MCV (RBC) [Entitic vol] 84.7 fL 80.0 - 100.0 fL [facility] Monocytes (Bld) [#/Vol] 0.53 10*3/uL <0.87 k/uL [facility] Monocytes/100 WBC (Bld) 7.5 % [facility] Neutrophils (Bld) [#/Vol] 5.16 10*3/uL 1.45 - 7.50 k/uL [facility] Neutrophils/100 WBC (Bld) 72.9 % [facility] Nucleated RBC (Bld) [#/Vol] <0.01 k/uL [facility] Nucleated RBC/100 WBC (Bld) [Ratio] 0.0 /100 WBC [facility] Platelet mean volume (Bld) [Entitic vol] 10.1 fL 9.0 - 12.7 fL [facility] Platelets (Bld) [#/Vol] 247 10*3/uL 150 - 400 k/uL [facility] RBC (Bld) [#/Vol] 5.54 10*6/uL 4.20 - 6.0 0 m/uL [facility] WBC (Bld) [#/Vol] 7.07 10*3/uL 3.70 - 11.00 k/uL [facility] Basophils (Bld) [#/Vol] 0.04 10*3/uL Normal <0.11 [facility] Comment on above: Order Comment: Speci men Type: BLOOD SPECIMENOrdering Facility: [facility] Address: [address] [place] [address] Performed By: #### 5 7021-8 ####[facility] LABCLIA [id number] [place] [address] Basophils/100 WBC (Bld) 0.6 % Normal [facility] Comment on above: Order Comment: Speci men Type: BLOOD SPECIMENOrdering Facility: [facility] Address: [address] [place] [address] Performed By: #### 5 7021-8 ####[facility] LABCLIA [id number] [place] [address] Differential cell count method Nom (Bld) Auto Normal [facility] Comment on above: Order Comment: Speci men Type: BLOOD SPECIMENOrdering Facility: [facility] Address: [address] [place] [address] Performed By: #### 5 7021-8 ####[facility] LABCLIA [id number] [place] [address] Eosinophils (Bld) [#/Vol] 0.11 10*3/uL Normal <0.46 [facility] Comment on above: Order Comment: Speci men Type: BLOOD SPECIMENOrdering Facility: [facility] Address: [address] [place] [address] Performed By: #### 5 7021-8 ####[facility] LABCLIA [id number] [place] [address] Eosinophils/100 WBC (Bld) 1.6 % Normal [facility] Comment on above: Order Comment: Speci men Type: BLOOD SPECIMENOrdering Facility: [facility] Address: [address] [place] [address] Performed By: #### 5 7021-8 ####[facility] LABCLIA [id number] [place] [address] Erythrocyte distribution width (RBC) [Ratio] 12.2 % Normal 11.5-15.0 [facility] Comment on above: Order Comment: Speci men Type: BLOOD SPECIMENOrdering Facility: [facility] Address: [address] [place] [address] Performed By: #### 5 7021-8 ####[facility] LABCLIA [id number] [place] [address] Hematocrit (Bld) [Volume fraction] 46.9 % Normal 39.0-51.0 [facility] Comment on above: Order Comment: Speci men Type: BLOOD SPECIMENOrdering Facility: [facility] Address: [address] [place] [address] Performed By: #### 5 7021-8 ####[facility] LABCLIA [id number] [place] [address] Hemoglobin (Bld) [Mass/Vol] 16.3 g/dL Normal 13.0-17.0 [facility] Comment on above: Order Comment: Speci men Type: BLOOD SPECIMENOrdering Facility: [facility] Address: [address] [place] [address] Performed By: #### 5 7021-8 ####[facility] LABCLIA [id number] [place] [address] Immature granulocytes (Bld) [#/Vol] 10*3/uL Normal <0.10 [facility] Comment on above: Order Comment: Speci men Type: BLOOD SPECIMENOrdering Facility: [facility] Address: [address] [place] [address] Performed By: #### 5 7021-8 ####[facility] LABCLIA [id number] [place] [address] Immature granulocytes/100 WBC (Bld) 0.3 % Normal [facility] Comment on above: Order Comment: Speci men Type: BLOOD SPECIMENOrdering Facility: [facility] Address: [address] [place] [address] Performed By: #### 5 7021-8 ####[facility] LABCLIA [id number] [place] [address] Lymphocytes (Bld) [#/Vol] 1.21 10*3/uL Normal 1.00-4.00 [facility] Comment on above: Order Comment: Speci men Type: BLOOD SPECIMENOrdering Facility: [facility] Address: [address] [place] [address] Performed By: #### 5 7021-8 ####[facility] LABCLIA [id number] [place] [address] Lymphocytes/100 WBC (Bld) 17.1 % Normal [facility] Comment on above: Order Comment: Speci men Type: BLOOD SPECIMENOrdering Facility: [facility] Address: [address] [place] [address] Performed By: #### 5 7021-8 ####[facility] LABCLIA [id number] [place] [address] MCH (RBC) [Entitic mass] 29.4 pg Normal 26.0-34.0 [facility] Comment on above: Order Comment: Speci men Type: BLOOD SPECIMENOrdering Facility: [facility] Address: [address] [place] [address] Performed By: #### 5 7021-8 ####[facility] LABCLIA [id number] [place] [address] MCHC (RBC) [Mass/Vol] 34.8 g/dL Normal 30.5-36.0 [facility] Comment on above: Order Comment: Speci men Type: BLOOD SPECIMENOrdering Facility: [facility] Address: [address] [place] [address] Performed By: #### 5 7021-8 ####[facility] LABCLIA [id number] [place] [address] MCV (RBC) [Entitic vol] 84.7 fL Normal 80.0-100.0 [facility] Comment on above: Order Comment: Speci men Type: BLOOD SPECIMENOrdering Facility: [facility] Address: [address] [place] [address] Performed By: #### 5 7021-8 ####[facility] LABCLIA [id number] [place] [address] Monocytes (Bld) [#/Vol] 0.53 10*3/uL Normal <0.87 [facility] Comment on above: Order Comment: Speci men Type: BLOOD SPECIMENOrdering Facility: [facility] Address: [address] [place] [address] Performed By: #### 5 7021-8 ####[facility] LABCLIA [id number] [place] [address] Monocytes/100 WBC (Bld) 7.5 % Normal [facility] Comment on above: Order Comment: Speci men Type: BLOOD SPECIMENOrdering Facility: [facility] Address: [address] [place] [address] Performed By: #### 5 7021-8 ####[facility] LABCLIA [id number] [place] [address] Neutrophils (Bld) [#/Vol] 5.16 10*3/uL Normal 1.45-7.50 [facility] Comment on above: Order Comment: Speci men Type: BLOOD SPECIMENOrdering Facility: [facility] Address: [address] [place] [address] Performed By: #### 5 7021-8 ####[facility] LABCLIA [id number] [place] [address] Neutrophils/100 WBC (Bld) 72.9 % Normal [facility] Comment on above: Order Comment: Speci men Type: BLOOD SPECIMENOrdering Facility: [facility] Address: [address] [place] [address] Performed By: #### 5 7021-8 ####[facility] LABCLIA [id number] [place] [address] Nucleated RBC (Bld) [#/Vol] 10*3/uL Normal <0.01 [facility] Comment on above: Order Comment: Speci men Type: BLOOD SPECIMENOrdering Facility: [facility] Address: [address] [place] [address] Performed By: #### 5 7021-8 ####[facility] LABCLIA [id number] [place] [address] Nucleated RBC/100 WBC (Bld) [Ratio] 0.0 /100 WBC Normal [facility] Comment on above: Order Comment: Speci men Type: BLOOD SPECIMENOrdering Facility: [facility] Address: [address] [place] [address] Performed By: #### 5 7021-8 ####[facility] LABCLIA [id number] [place] [address] Platelet mean volume (Bld) [Entitic vol] 10.1 fL Normal 9.0-12.7 [facility] Comment on above: Order Comment: Speci men Type: BLOOD SPECIMENOrdering Facility: [facility] Address: [address] [place] [address] Performed By: #### 5 7021-8 ####[facility] LABIA [id number] [place] [address] Platelets (Bld) [#/Vol] 247 10*3/uL Normal 150-400 [facility] Comment on above: Order Comment: Speci men Type: BLOOD SPECIMENOrdering Facility: [facility] Address: [address] [place] [address] Performed By: #### 5 7021-8 ####[facility] LABCLIA [id number] [place] [address] RBC (Bld) [#/Vol] 5.54 10*6/uL Normal 4.20-6.00 [facility] Comment on above: Order Comment: Speci men Type: BLOOD SPECIMENOrdering Facility: [facility] Address: [address] [place] [address] Performed By: #### 5 7021-8 ####[facility] LABCLIA [id number] [place] [address] WBC (Bld) [#/Vol] 7.07 10*3/uL Normal 3.70-11.00 [facility] Comment on above: Order Comment: Speci men Type: BLOOD SPECIMENOrdering Facility: [facility] Address: [address] [place] [address] Performed By: #### 5 7021-8 ####[facility] LABCLIA [id number] [place] [address] CNOVon 07-18-2023 CNOV Office Visit (RADTSA ) -- JORDAN BENNETT ([id number]) 1975 M Date Time Provider Department 07/18/23 9:45 AM LAB/PORT RADT SUMIT RADTSA During [...] [C62.90] Order(s):CBC + DIFF [SQCBCDIF] Order #: [id number]. #:[id number] Prescriptions as of 07/18/2023 - ondansetron orally [...] [C62.1*02/14/2023 Visit Notes: >> Gavin Rea LPN [facility] Jul 18, 2023 3:50 PM Status: Luisa Bennett presents in office today for: Lab Draw only . Ordering Provider: Thierno Jasso M.D. Test (s) ordered: CBC Method for obtaining blood: Phlebotomy was performed, accessing right hand vein. Needle removed intact. Dressing secured. Patient denies discomfort, dizziness, light-headedness or weakness and left the department without assist. Gavin Rea LPN Encounter Status:Closed by GAVIN REA on 07/18/23 [facility] CNOVon 07-15-2023 CNOV Office Visit (RADTSA ) -- JORDAN BENNETT ([id number]) 1975 M Date Time Provider Department 07/15/23 [...] status post right radical orchiectomy, stage IB [id number], initially undergoing surveillance only. COURSE: definitive Current [...] Encounter Status:Closed by Dimitry JASSO on 07/15/23 [facility] -- JORDAN BENNETT ([id number]) 1975 M Date Time Provider Department 07/09[facility] your visit today, we recorded the following information about you: Gavin Rea LPN 07/09/2023 2:43 PM Signed CBC order pending your approval. MAIKEL Alonso Ariana, LPN 07/10/2023 8:11 AM Signed [...] [C62.90] Order(s):CBC + DIFF [SQCBCDIF] Order #: [id number] STANDING Prescriptions as of 07/10/2023 - ondansetron [...] Encounter Status:Closed by FAZAL KELLY on 07/10/23 [facility] CNOVon 07-05-2023 CNOV Office Visit (LESLIEA ) -- JORDAN BENNETT ([id number]) 1975 M Date Time Provider Department 07/05/23 11:00 AM Dimitry JASSO During your visit today, we recorded the following information about you: Allergies As of Date: 07/05/2023 Noted Allergy Reaction PENICILLINS 08/23/2021 2 - Rash SHELLFISH CONTAINING PRODUCTS 08/23/2021 14 - Other: See Comments Date Reviewed: 06/27/2023 Reviewed by: Jewels Peterson MA - Fully Assessed Reason for Visit: Simulation Request Form [0126] Primary Visit Diagnosis:Malignant neoplasm of testicle, unspecified laterality, 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] Order(s):RADIATION TREATMENT PER RADIATION ONCOLOGIST PLAN [3935400] Order #: [id number]: 1 CT SIM PLANNING RADIATION ONCOLOGY [6130278] Order #: [id number] ondansetron (ZOFRAN) 8 mg tabletTake 1 tablet [...] Status:Closed by Dimitry JASSO on 07/05/23 Normal [facility] Consultation Noteon 07-05-19 Consultation Note [id number]#1.00TIFF [facility] Consultation Note [id number]#1.00TIFF [facility] CNSWon 06-28-2023 CNSW Social Work (HEMASA) -- JORDAN BENNETT ([id number]) 1975 M Date Time Provider Department 06/28/23 [...] and will follow up as appropriate. HAMIDA Carrington-S Allergies As of Date: 06/28/2023 Noted Allergy [...] Encounter Status:Closed by CATHI FAULKNER on 06/28/23 Normal [facility] CNOVon 06-27-2023 CNOV Office Visit (RADTSA ) -- JORDAN BENNETT ([id number]) 1975 M Date Time Provider Department 06/27/23 [...] status post right radical orchiectomy, stage IB Q3D5X1C9, initially undergoing surveillance only. HPI: Patient known [...] Abs Lymph 1.00 - 4.00 k/uL 2.37 [place]% % 6.9 Abs [place] <0.87 k/uL 0.53 Eosin% % 2.7 Abs [...] VS: BP (more content not included)... 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 Normal [facility] CNPNon 06-25-2023 CNPN Telephone (HEMASA) -- JORDAN BENNETT ([id number]) 1975 M Date Time Provider Department 06/25/23 [...] call patient tomorrow with appointment dates. Thanks, Michelle Aguiar 06/25/2023 8:44 AM Signed Patient is called [...] Encounter Status:Closed by SUDHIR BENITEZ on 06/25/23 [facility] CNPDanielle 06-18-2023 CNPN Telephone (HEMASA) -- JORDAN BENNETT ([id number]) 1975 M Date Time Provider Department 06/18/23 FLAVIO MYERS During your visit today, we recorded the following information about you: Flavio Myers RN 06/18/2023 12:39 PM Signed Pt calling to request pt be called with PET scan results. If he does not answer, she can be reached at [phone] BRM: Please review and advise MAIKEL Hemphill Brian R, MD 06/19/2023 11:30 AM Signed I discussed the case at length with the patient yesterday evening. He is aware of the PET scan results. Currently I plan to discuss his case with our [facility] Main campus colleagues. Most likely we [...] Status:Closed by FLAVIO MYERS on 06/19/23 Normal [facility] PET+CT Guidance for localiza tion of [...] Jun 09 2023 10:30A Dictated by: ANJALI EBGUM MD This examination was interpreted and the report reviewed and electronically signed by: ANJALI BEGUM MD on Jun 10 2023 8:21PM EST Thank you for allowing us to participate in the care of your patient. Should there be any questions regarding this interpretation, please call [phone]. If you are unable to reach us at the number above, please feel free to contact [facility] eRadiology at [phone]. DIVISION OF RADIOLOGY * * *Final Report* [...] SKELETON: There are no hypermetabolic osseous lesions. Floor Cleaner (topogram) images:No additional findings DIVISION OF RADIOLOGY Provider, [facility] - 06/10/2023 * * *Final Report* * [...] SKELETON: There are no hypermetabolic osseous lesions. Floor Cleaner (topogram) images:No additional findings IMPRESSION IMPRESSION: 1. [...] any questions regarding this interpretation, please call [phone]. If you are unable to reach us at the number above, please feel free to contact [facility]iology at [phone]. [facility] PET+CT Guidance for localiza tion of tumor of Skull base to mid-thigh-- W 18F-FDG IVOrdered By: Omar Provider on 06-10-2023 [facility] GLUCOSE, BLOOD (POC)on 06-07 Glucose [Mass/Vol] 90 mg/dL 74 - 99 mg/dL [facility] Comment on above: Location:[facility], [address] [place] [address] [place], [place], [address] The Accu-Chek Inform II glucose meter has [...] blood gas instrument) in the above situations. [facility] NM PET/CT SKULL-THIGH INITon 06-07-2023 NM PET/CT [...] SKELETON: There are no hypermetabolic osseous lesions. Floor Cleaner (topogram) images:No additional findings IMPRESSION: 1. Neck: [...] any questions regarding this interpretation, please call [phone]. If you are unable to reach us at the number above, please feel free to contact [facility]iology at [phone]. 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 Normal [facility] BETA HCG QUANT TUMOR MARKERo n 05-20-2023 HCG.beta subunit Qn m[IU]/mL [facility] Comment on above: INTERPRETIVE INFORMA [...] reference intervals for this test in the [facility] Test Directory (Anews). This test was developed and its performance characteristics determined by [facility]. It has not been cleared or approved by the [place] Food and Drug Administration. This test was performed in a CLIA certified laboratory and is intended for clinical purposes. Performed By: [facility] [address] [place] [address] Protocol Officer: Cam Archibald MD, PhD CLIA Number: [id number] CT Abdomen and Pelvis W chapo Cadena 05-20-2023 IMPRESSION: 1. Interval increase in [...] any questions regarding this interpretation, please call [phone]. If you are unable to reach us at the number above, please feel free to contact [facility] at [phone]. DIVISION OF RADIOLOGY * * *Final Report* * * DATE OF EXAM: May 17 2023 11:12AM [facility] 0530 - CT ABD/PEL W IVCON / [...] chest CT performed will be reported separately. Floor Cleaner (topogram) images: No additional findings. DIVISION OF RADIOLOGY Provider, [facility] - 05/20/2023 * * *Final Report* * * DATE OF EXAM: May 17 2023 11:12AM [facility] 0530 - CT ABD/PEL W IVCON / [...] chest CT performed will be reported separately. Floor Cleaner (topogram) images: No additional findings. IMPRESSION IMPRESSION: [...] any questions regarding this interpretation, please call [phone]. If you are unable to reach us at the number above, please feel free to contact [facility]iology at [phone]. [facility] CT Abdomen and Pelvis W cont rast IVOrdered By: Ccf Provider on 05-20-[address] [facility] [address] Chest W contrast Tammi IMPRESSION: 1. [...] any questions regarding this interpretation, please call [phone]. If you are unable to reach us at the number above, please feel free to contact [facility]iology at [phone]. DIVISION OF RADIOLOGY * * *Final Report* * * DATE OF EXAM: May 17 2023 11:12AM [facility] 0539 - CT CHEST W IVCON / [...] was performed concurrently and is reported separately. Floor Cleaner (topogram) images: No additional findings. DIVISION OF RADIOLOGY Provider, [facility] - 05/20/2023 * * *Final Report* * * DATE OF EXAM: May 17 2023 11:12AM [facility] 0539 - CT CHEST W IVCON / [...] was performed concurrently and is reported separately. Floor Cleaner (topogram) images: No additional findings. IMPRESSION IMPRESSION: [...] any questions regarding this interpretation, please call [phone]. If you are unable to reach us at the number above, please feel free to contact [facility]iology at [phone]. [facility] HCG.beta subunit Qnon 2022 [facility] AFP SerPl-mCncon 05-17-2023 AFP [Mass/Vol] ng/mL Normal <11.0 [facility] Comment on above: Order Comment: Speci men Type: BLOOD SPECIMENOrdering Facility: [facility] Address: [address] [place] [address] Result Comment: The test is typically used [...] Alpha-Fetoprotein test was performed using the [employer]aur XP chemiluminometric immunoassay method. Results obtained with different assay methods or kits cannot be used interchangeably. Performed By: #### 1 834-1 ####[facility] LABCLIA [id number] [facility] [id number] [address] [place] AFP [Mass/Vol]Ordered By: Gale Harkins on 05-17-2023 Interpretation and review of laboratory results Normal [facility] Result rechecked. [facility] ALPHA FETOPROTEIN BLOrdered By: Nely Harkins on 05-17-2023 AFP [Mass/Vol] ng/mL NINF - 11.0 ng/mL [facility] Comment on above: The test is typicall [...] Alpha-Fetoprotein test was performed using the [employer]aur XP chemiluminometric immunoassay method. Results obtained with different assay methods or kits cannot be used interchangeably. BETA HCG QUANT TUMOR MARKERo n 05-17-2023 BETA HCG QUANT TUMOR MARKER <1 Normal 0-3 [facility] Comment on above: Order Comment: Speci men Type: BLOOD SPECIMENOrdering Facility: [facility] Address: [address] [place] [address] Result Comment: INTE RPRETIVE INFORMATION: Beta hCG, [...] reference intervals for this test in the [facility] Test Directory (Anews). This test was developed and its performance characteristics determined by [facility]. It has not been cleared or approved by the [place] Food and Drug Administration. This test was performed in a CLIA certified laboratory and is intended for clinical purposes. Performed By: [facility] [address] [place] [address] Protocol Officer: Cam Archibald MD, PhD CLIA Number: [id number] Performed By: #### B HCG ####[facility] [id number] [place] [id number] CBC W Auto Differential pane l (Bld)on 05-17-2023 Basophils (Bld) [#/Vol] 0.06 10*3/uL [facility] Basophils/100 WBC (Bld) 0.8 % [facility] Differential cell count method Nom (Bld) Auto [facility] Eosinophils (Bld) [#/Vol] 0.21 10*3/uL [facility] Eosinophils/100 WBC (Bld) 2.7 % [facility] Erythrocyte distribution width (RBC) [Ratio] 12.9 % 11.5 - 15.0 % [facility] Hematocrit (Bld) [Volume fraction] 43.7 % 39.0 - 51.0 % [facility] Hemoglobin (Bld) [Mass/Vol] 15.2 g/dL 13.0 - 17.0 g/dL [facility] Immature granulocytes (Bld) [#/Vol] 0.03 10*3/uL [facility] Immature granulocytes/100 WBC (Bld) 0.4 % [facility] Lymphocytes (Bld) [#/Vol] 2.37 10*3/uL [facility] Lymphocytes/100 WBC (Bld) 30.9 % [facility] MCH (RBC) [Entitic mass] 29.5 pg 26.0 - 34.0 pg [facility] MCHC (RBC) [Mass/Vol] 34.8 g/dL 30.5 - 36.0 g/dL [facility] MCV (RBC) [Entitic vol] 84.7 fL 80.0 - 100.0 fL [facility] Monocytes (Bld) [#/Vol] 0.53 10*3/uL [facility] Monocytes/100 WBC (Bld) 6.9 % [facility] Neutrophils (Bld) [#/Vol] 4.46 10*3/uL [facility] Neutrophils/100 WBC (Bld) 58.3 % [facility] Nucleated RBC (Bld) [#/Vol] NINF [facility] Nucleated RBC/100 WBC (Bld) [Ratio] 0.0 % /100 WBC [facility] Platelet mean volume (Bld) [Entitic vol] 10.4 fL 9.0 - 12.7 fL [facility] Platelets (Bld) [#/Vol] 252 10*3/uL [facility] RBC (Bld) [#/Vol] 5.16 10*6/uL 4.20 - 6.0 0 m/uL [facility] WBC (Bld) [#/Vol] 7.66 10*3/uL [facility] Basophils (Bld) [#/Vol] 0.06 10*3/uL Normal <0.11 [facility] Comment on above: Order Comment: Speci men Type: BLOOD SPECIMENOrdering Facility: [facility] Address: [address] [place] [address] Performed By: #### 5 7021-8 ####[facility] LABCLIA [id number] [place] [address] Basophils/100 WBC (Bld) 0.8 % Normal [facility] Comment on above: Order Comment: Speci men Type: BLOOD SPECIMENOrdering Facility: [facility] Address: [address] [place] [address] Performed By: #### 5 7021-8 ####[facility] LABCLIA [id number] [place] [address] Differential cell count method Nom (Bld) Auto Normal [facility] Comment on above: Order Comment: Speci men Type: BLOOD SPECIMENOrdering Facility: [facility] Address: [address] [place] [address] Performed By: #### 5 7021-8 ####[facility] LABCLIA [id number] [place] [address] Eosinophils (Bld) [#/Vol] 0.21 10*3/uL Normal <0.46 [facility] Comment on above: Order Comment: Speci men Type: BLOOD SPECIMENOrdering Facility: [facility] Address: [address] [place] [address] Performed By: #### 5 7021-8 ####[facility] LABCLIA [id number] [place] [address] Eosinophils/100 WBC (Bld) 2.7 % Normal [facility] Comment on above: Order Comment: Speci men Type: BLOOD SPECIMENOrdering Facility: [facility] Address: [address] [place] [address] Performed By: #### 5 7021-8 ####[facility] LABCLIA [id number] [place] [address] Erythrocyte distribution width (RBC) [Ratio] 12.9 % Normal 11.5-15.0 [facility] Comment on above: Order Comment: Speci men Type: BLOOD SPECIMENOrdering Facility: [facility] Address: [address] [place] [address] Performed By: #### 5 7021-8 ####[facility] LABCLIA [id number] [place] [address] Hematocrit (Bld) [Volume fraction] 43.7 % Normal 39.0-51.0 [facility] Comment on above: Order Comment: Speci men Type: BLOOD SPECIMENOrdering Facility: [facility] Address: [address] [place] [address] Performed By: #### 5 7021-8 ####[facility] LABCLIA [id number] [place] [address] Hemoglobin (Bld) [Mass/Vol] 15.2 g/dL Normal 13.0-17.0 [facility] Comment on above: Order Comment: Speci men Type: BLOOD SPECIMENOrdering Facility: [facility] Address: [address] [place] [address] Performed By: #### 5 7021-8 ####[facility] LABCLIA [id number] [place] [address] Immature granulocytes (Bld) [#/Vol] 0.03 10*3/uL Normal <0.10 [facility] Comment on above: Order Comment: Speci men Type: BLOOD SPECIMENOrdering Facility: [facility] Address: [address] [place] [address] Performed By: #### 5 7021-8 ####[facility] LABCLIA [id number] [place] [address] Immature granulocytes/100 WBC (Bld) 0.4 % Normal [facility] Comment on above: Order Comment: Speci men Type: BLOOD SPECIMENOrdering Facility: [facility] Address: [address] [place] [address] Performed By: #### 5 7021-8 ####[facility] LABCLIA [id number] [place] [address] Lymphocytes (Bld) [#/Vol] 2.37 10*3/uL Normal 1.00-4.00 [facility] Comment on above: Order Comment: Speci men Type: BLOOD SPECIMENOrdering Facility: [facility] Address: [address] [place] [address] Performed By: #### 5 7021-8 ####[facility] LABCLIA [id number] [place] [address] Lymphocytes/100 WBC (Bld) 30.9 % Normal [facility] Comment on above: Order Comment: Speci men Type: BLOOD SPECIMENOrdering Facility: [facility] Address: [address] [place] [address] Performed By: #### 5 7021-8 ####[facility] LABCLIA [id number] [place] [address] MCH (RBC) [Entitic mass] 29.5 pg Normal 26.0-34.0 [facility] Comment on above: Order Comment: Speci men Type: BLOOD SPECIMENOrdering Facility: [facility] Address: [address] [place] [address] Performed By: #### 5 7021-8 ####[facility] LABCLIA [id number] [place] [address] MCHC (RBC) [Mass/Vol] 34.8 g/dL Normal 30.5-36.0 [facility] Comment on above: Order Comment: Speci men Type: BLOOD SPECIMENOrdering Facility: [facility] Address: [address] [place] [address] Performed By: #### 5 7021-8 ####[facility] LABIA [id number] [place] [address] MCV (RBC) [Entitic vol] 84.7 fL Normal 80.0-100.0 [facility] Comment on above: Order Comment: Speci men Type: BLOOD SPECIMENOrdering Facility: [facility] Address: [address] [place] [address] Performed By: #### 5 7021-8 ####[facility] LABIA [id number] [place] [address] Monocytes (Bld) [#/Vol] 0.53 10*3/uL Normal <0.87 [facility] Comment on above: Order Comment: Speci men Type: BLOOD SPECIMENOrdering Facility: [facility] Address: [address] [place] [address] Performed By: #### 5 7021-8 ####[facility] LABIA [id number] [place] [address] Monocytes/100 WBC (Bld) 6.9 % Normal [facility] Comment on above: Order Comment: Speci men Type: BLOOD SPECIMENOrdering Facility: [facility] Address: [address] [place] [address] Performed By: #### 5 7021-8 ####[facility] LABCLIA [id number] [place] [address] Neutrophils (Bld) [#/Vol] 4.46 10*3/uL Normal 1.45-7.50 [facility] Comment on above: Order Comment: Speci men Type: BLOOD SPECIMENOrdering Facility: [facility] Address: [address] [place] [address] Performed By: #### 5 7021-8 ####[facility] LABCLIA [id number] [place] [address] Neutrophils/100 WBC (Bld) 58.3 % Normal [facility] Comment on above: Order Comment: Speci men Type: BLOOD SPECIMENOrdering Facility: [facility] Address: [address] [place] [address] Performed By: #### 5 7021-8 ####[facility] LABCLIA [id number] [place] [address] Nucleated RBC (Bld) [#/Vol] 10*3/uL Normal <0.01 [facility] Comment on above: Order Comment: Speci men Type: BLOOD SPECIMENOrdering Facility: [facility] Address: [address] [place] [address] Performed By: #### 5 7021-8 ####[facility] LABCLIA [id number] [place] [address] Nucleated RBC/100 WBC (Bld) [Ratio] 0.0 /100 WBC Normal [facility] Comment on above: Order Comment: Speci men Type: BLOOD SPECIMENOrdering Facility: [facility] Address: [address] [place] [address] Performed By: #### 5 7021-8 ####[facility] LABCLIA [id number] [place] [address] Platelet mean volume (Bld) [Entitic vol] 10.4 fL Normal 9.0-12.7 [facility] Comment on above: Order Comment: Speci men Type: BLOOD SPECIMENOrdering Facility: [facility] Address: [address] [place] [address] Performed By: #### 5 7021-8 ####[facility] LABCLIA [id number] [place] [address] Platelets (Bld) [#/Vol] 252 10*3/uL Normal 150-400 [facility] Comment on above: Order Comment: Speci men Type: BLOOD SPECIMENOrdering Facility: [facility] Address: [address] [place] [address] Performed By: #### 5 7021-8 ####[facility] [id number] [place] [address] RBC (Bld) [#/Vol] 5.16 10*6/uL Normal 4.20-6.00 [facility] Comment on above: Order Comment: Speci men Type: BLOOD SPECIMENOrdering Facility: [facility] Address: [address] [place] [address] Performed By: #### 5 7021-8 ####[facility] LABIA [id number] [place] [address] WBC (Bld) [#/Vol] 7.66 10*3/uL Normal 3.70-11.00 [facility] Comment on above: Order Comment: Speci men Type: BLOOD SPECIMENOrdering Facility: [facility] Address: [address] [place] [address] Performed By: #### 5 7021-8 ####[facility] LABIA [id number] [place] [address] CT ABD/PEL W IVCONon 023 CT ABD/PEL W IVCON * * *Final Report* * * DATE OF EXAM: May 17 2023 11:12AM [facility] 0530 - CT ABD/PEL W IVCON / [...] chest CT performed will be reported separately. Floor Cleaner (topogram) images: No additional findings. IMPRESSION: 1. [...] any questions regarding this interpretation, please call [phone]. If you are unable to reach us at the number above, please feel free to contact [facility] at [phone]. [id number] Normal [facility] CT CHEST W IVCONon 3 CT CHEST W IVCON * * *Final Report* * * DATE OF EXAM: May 17 2023 11:12AM [facility] 0539 - CT CHEST W IVCON / [...] was performed concurrently and is reported separately. Floor Cleaner (topogram) images: No additional findings. IMPRESSION: 1. [...] any questions regarding this interpretation, please call [phone]. If you are unable to reach us at the number above, please feel free to contact [facility] at [phone]. [id number] Normal [facility] Comprehensive metabolic 2000 panelon 05-17-2023 Albumin [Mass/Vol] 4.5 g/dL 3.9 - 4.9 g/dL [facility] ALP [Catalytic activity/Vol] 65 U/L 38 - 113 U/L [facility] ALT [Catalytic activity/Vol] 17 U/L 10 - 54 U/L [facility] Anion gap [Moles/Vol] 10 mmol/L 9 - 18 mmol/L [facility] AST [Catalytic activity/Vol] 17 U/L 14 - 40 U/L [facility] Bilirubin [Mass/Vol] 0.5 mg/dL 0.2 - 1 .3 mg/dL [facility] Calcium [Mass/Vol] 9.5 mg/dL 8.5 - 10. 2 mg/dL [facility] Chloride [Moles/Vol] 106 mmol/L High 97 - 10 5 mmol/L [facility] CO2 [Moles/Vol] 24 mmol/L 22 - 30 mmol/L [facility] Creatinine [Mass/Vol] 0.95 mg/dL 0.73 - 1.22 mg/dL [facility] GFR/1.73 sq M.predicted among non-blacks MDRD (S/P/Bld) [Vol rate/Area] 98 mL/min/{1.73_m2} - PINF [facility] Comment on above: Estimated Glomerular Filtration Rate [...] 103 mg/dL High 74 - 99 mg/dL [facility] Comment on above: The Stateless Diabete s Association (ADA) provides guidance for [...] Standards of Medical Care in Diabetes 2016, Stateless Diabetes Association. Diabetes Care. 2016.39(Suppl 1). Interpretation and review of laboratory results Abnormal [facility] Potassium [Moles/Vol] 4.1 mmol/L 3.7 - 5.1 mmol/L [facility] Protein [Mass/Vol] 7.1 g/dL 6.3 - 8.0 g/dL [facility] Sodium [Moles/Vol] 140 mmol/L 136 - 144 mmol/L [facility] Urea nitrogen [Mass/Vol] 22 mg/dL 9 - 24 mg/dL [facility] Albumin [Mass/Vol] 4.5 g/dL Normal 3.9-4.9 [facility] Comment on above: Order Comment: Speci men Type: BLOOD SPECIMENOrdering Facility: [facility] Address: [address] [place] [address] Performed By: #### 2 432-8, 2531-0 ####[facility] LABCLIA [id number] [place] [address] ALP [Catalytic activity/Vol] 65 U/L Normal 38-113 [facility] Comment on above: Order Comment: Speci men Type: BLOOD SPECIMENOrdering Facility: [facility] Address: [address] [place] [address] Performed By: #### 2 4328, 2531-0 ####[facility] LABCLIA [id number] [place] [address] ALT [Catalytic activity/Vol] 17 U/L Normal 10-54 [facility] Comment on above: Order Comment: Speci men Type: BLOOD SPECIMENOrdering Facility: [facility] Address: [address] [place] [address] Performed By: #### 2 4328, 2531-0 ####[facility] LABCLIA [id number] [place] [address] Anion gap [Moles/Vol] 10 mmol/L Normal 9-18 [facility] Comment on above: Order Comment: Speci men Type: BLOOD SPECIMENOrdering Facility: [facility] Address: [address] [place] [address] Performed By: #### 2 4328, 0 ####[facility] LABCLIA [id number] [place] [address] AST [Catalytic activity/Vol] 17 U/L Normal 14-40 [facility] Comment on above: Order Comment: Speci men Type: BLOOD SPECIMENOrdering Facility: [facility] Address: [address] [place] [address] Performed By: #### 2 432-8, 2531-0 ####[facility] LABCLIA [id number] [place] [address] Bilirubin [Mass/Vol] 0.5 mg/dL Normal 0.2-1.3 [facility] Comment on above: Order Comment: Speci men Type: BLOOD SPECIMENOrdering Facility: [facility] Address: [address] [place] [address] Performed By: #### 2 4323-8, 2531-0 ####[facility] LABCLIA [id number] [place] [address] Calcium [Mass/Vol] 9.5 mg/dL Normal 8.5-10.2 [facility] Comment on above: Order Comment: Speci men Type: BLOOD SPECIMENOrdering Facility: [facility] Address: [address] [place] [address] Performed By: #### 2 4323-8, 2531-0 ####[facility] LABCLIA [id number] [place] [address] Chloride [Moles/Vol] 106 mmol/L High 97-105 [facility] Comment on above: Order Comment: Speci men Type: BLOOD SPECIMENOrdering Facility: [facility] Address: [address] [place] [address] Performed By: #### 2 4323-8, 2531-0 ####[facility] LABCLIA [id number] [place] [address] CO2 [Moles/Vol] 24 mmol/L Normal 22-30 [facility] Comment on above: Order Comment: Speci men Type: BLOOD SPECIMENOrdering Facility: [facility] Address: [address] [place] [address] Performed By: #### 2 4323-8, 2531-0 ####[facility] LABCLIA [id number] [place] [address] Creatinine [Mass/Vol] 0.95 mg/dL Normal 0.73-1.22 [facility] Comment on above: Order Comment: Speci men Type: BLOOD SPECIMENOrdering Facility: [facility] Address: [address] [place] [address] Performed By: #### 2 4323-8, 0 ####[facility] LABCLIA [id number] [place] [address] Creatinine and Glomerular filtration rate.predicted panel (S/P/Bld) 98 mL/min/1.73m??? Normal >=60 [facility] Comment on above: Order Comment: Delores phelps Type: BLOOD SPECIMENOrdering Facility: [facility] Address: [address] [place] [address] Result Comment: Stefanie mated Glomerular Filtration Rate [...] GFR. Performed By: #### 2 4323-8, 0 ####[facility] LABCLIA [id number] [place] [address] Glucose [Mass/Vol] 103 mg/dL High 74-99 [facility] Comment on above: Order Comment: Delores phelps Type: BLOOD SPECIMENOrdering Facility: [facility] Address: [address] [place] [address] Result Comment: The Stateless Diabetes Association (ADA) provides guidance for cutoff [...] Standards of Medical Care in Diabetes 2016, Stateless Diabetes Association. Diabetes Care. 2016.39(Suppl 1). Performed By: #### 2 4323-8, 0 ####[facility] LABCLIA [id number] [place] [address] Potassium [Moles/Vol] 4.1 mmol/L Normal 3.7-5.1 [facility] Comment on above: Order Comment: Speci men Type: BLOOD SPECIMENOrdering Facility: [facility] Address: [address] [place] [address] Performed By: #### 2 4323-8, 2531-0 ####[facility] LABCLIA [id number] [place] [address] Protein [Mass/Vol] 7.1 g/dL Normal 6.3-8.0 [facility] Comment on above: Order Comment: Speci men Type: BLOOD SPECIMENOrdering Facility: [facility] Address: [address] [place] [address] Performed By: #### 2 4323-8, 2531-0 ####[facility] LABCLIA [id number] [place] [address] Sodium [Moles/Vol] 140 mmol/L Normal 136-144 [facility] Comment on above: Order Comment: Speci men Type: BLOOD SPECIMENOrdering Facility: [facility] Address: [address] [place] [address] Performed By: #### 2 4323-8, 2531-0 ####[facility] LABCLIA [id number] [place] [address] Urea nitrogen [Mass/Vol] 22 mg/dL Normal 9-24 [facility] Comment on above: Order Comment: Speci men Type: BLOOD SPECIMENOrdering Facility: [facility] Address: [address] [place] [address] Performed By: #### 2 4323-8, 2531-0 ####[facility] LABCLIA [id number] [place] [address] LD LACTATE DEHYDROOrdered By : Umu Negro on 05-17-2023 LDH [Catalytic activity/Vol] 211 U/L 135 - 225 U/L [facility] Comment on above: Hemolysis present. T he [...] LDH [Catalytic activity/Vol] 211 U/L Normal 135-225 [facility] Comment on above: Order Comment: Speci men Type: BLOOD SPECIMENOrdering Facility: [facility] Address: [facility] [place] [id number] Result Comment: Hemo lysis present. The origin of the hemolysis, in vitro versus an in vivo hemolytic process, cannot be distinguished via this assay alone. In vitro hemolysis may lead to non-physiological (spurious) elevation in lactate dehydrogenase (LDH) results. The result should be interpreted in context of the clinical setting and other test results. Suggest reorder as clinically indicated. Performed By: #### 2 4323-8, 2532-0 ####[facility] LABCLIA [id number] [place] [address] LDH [Catalytic activity/Vol] Ordered By: Umu Negro on 05-17-2023 Interpretation and review of laboratory results Normal [facility] No Panel Informationon 05-17 Radiology Study observation (narrative) [facility] BETA HCG QUANT TUMOR MARKERo n 11-03-2022 HCG.beta subunit Qn m[IU]/mL [facility] Comment on above: INTERPRETIVE INFORMA [...] reference intervals for this test in the [facility] Test [facility] ([employer]). This test was developed and its performance characteristics determined by [facility]. It has not been cleared or approved by the [place] Food and Drug Administration. This test was performed in a CLIA certified laboratory and is intended for clinical purposes. Performed By: [facility] [address] [place] [address] Protocol Officer: Cam Archibald MD, PhD HCG.beta subunit Qnon 2022 [facility] AFP [Mass/Vol]Ordered By: Esvin Cervantes on 11-01-2022 Interpretation and review of laboratory results Normal [facility] ALPHA FETOPROTEIN BLOrdered By: Franky Cervantes on 11-01-2022 AFP [Mass/Vol] ng/mL NINF - 11.0 ng/mL [facility] Comment on above: Result rechecked. The test [...] any questions regarding this interpretation, please call [phone]. If you are unable to reach us at the number above, please feel free to contact [facility] at [phone]. DIVISION OF RADIOLOGY * * *Final Report* * * DATE OF EXAM: Oct 31 2022 2:00PM [facility] 0530 - CT ABD/PEL W IVCON / [...] chest CT performed will be reported separately. Floor Cleaner (topogram) images: No additional findings. DIVISION OF RADIOLOGY Provider, [facility] 11/01/2022 * * *Final Report* * * DATE OF EXAM: Oct 31 2022 2:00PM [facility] 0530 - CT ABD/PEL W IVCON / [...] chest CT performed will be reported separately. Floor Cleaner (topogram) images: No additional findings. IMPRESSION IMPRESSION: [...] any questions regarding this interpretation, please call [phone]. If you are unable to reach us at the number above, please feel free to contact [facility] at [phone]. [facility] CT Abdomen and Pelvis W cont rast IVOrdered By: Ccf Provider on 11-01-[address] [facility] [address] Chest W contrast Tammi IMPRESSION: 1. [...] any questions regarding this interpretation, please call [phone]. If you are unable to reach us at the number above, please feel free to contact [facility] at [phone]. DIVISION OF RADIOLOGY * * *Final Report* * * DATE OF EXAM: Oct 31 2022 2:00PM [facility] 0539 - CT CHEST W IVCON / [...] was performed concurrently and is reported separately. Floor Cleaner (topogram) images: No additional findings. DIVISION OF RADIOLOGY Provider, Omar Lopez g Alvo - 11/01/2022 * * *Final Report* * * DATE OF EXAM: Oct 31 2022 2:00PM [facility] 0539 - CT CHEST W IVCON / [...] was performed concurrently and is reported separately. Floor Cleaner (topogram) images: No additional findings. IMPRESSION IMPRESSION: [...] any questions regarding this interpretation, please call [phone]. If you are unable to reach us at the number above, please feel free to contact [facility] at [phone]. [facility] Basic metabolic 2000 panelOr dered By: Chace Morataya on 10-31-2022 Anion gap [Moles/Vol] 12 mmol/L 9 - 18 mmol/L [facility] Calcium [Mass/Vol] 9.7 mg/dL 8.5 - 10. 2 mg/dL [facility] Chloride [Moles/Vol] 102 mmol/L 97 - 10 5 mmol/L [facility] CO2 [Moles/Vol] 24 mmol/L 22 - 30 mmol/L [facility] Creatinine [Mass/Vol] 0.89 mg/dL 0.73 - 1.22 mg/dL [facility] GFR/1.73 sq M.predicted among non-blacks MDRD (S/P/Bld) [Vol rate/Area] 106 mL/min/{1.73_m2} - PINF [facility] Comment on above: Estimated Glomerular Filtration Rate [...] [Mass/Vol] 90 mg/dL 74 - 99 mg/dL [facility] Comment on above: The Stateless Diabete s Association (ADA) provides guidance for [...] Standards of Medical Care in Diabetes 2016, Stateless Diabetes Association. Diabetes Care. 2016.39(Suppl 1). Interpretation and review of laboratory results Normal [facility] Potassium [Moles/Vol] 3.9 mmol/L 3.7 - 5.1 mmol/L [facility] Sodium [Moles/Vol] 138 mmol/L 136 - 144 mmol/L [facility] Urea nitrogen [Mass/Vol] 16 mg/dL 9 - 24 mg/dL [facility] CBC W Auto Differential pane l (Bld)on 10-31-2022 Basophils (Bld) [#/Vol] 0.06 10*3/uL [facility] Basophils/100 WBC (Bld) 0.7 % [facility] Differential cell count method Nom (Bld) Auto [facility] Eosinophils (Bld) [#/Vol] 0.14 10*3/uL [facility] Eosinophils/100 WBC (Bld) 1.6 % [facility] Erythrocyte distribution width (RBC) [Ratio] 12.4 % 11.5 - 15.0 % [facility] Hematocrit (Bld) [Volume fraction] 44.1 % 39.0 - 51.0 % [facility] Hemoglobin (Bld) [Mass/Vol] 15.2 g/dL 13.0 - 17.0 g/dL [facility] Immature granulocytes (Bld) [#/Vol] 0.03 10*3/uL [facility] Immature granulocytes/100 WBC (Bld) 0.4 % [facility] Lymphocytes (Bld) [#/Vol] 2.30 10*3/uL [facility] Lymphocytes/100 WBC (Bld) 27.0 % [facility] MCH (RBC) [Entitic mass] 29.3 pg 26.0 - 34.0 pg [facility] MCHC (RBC) [Mass/Vol] 34.5 g/dL 30.5 - 36.0 g/dL [facility] MCV (RBC) [Entitic vol] 85.0 fL 80.0 - 100.0 fL [facility] Monocytes (Bld) [#/Vol] 0.52 10*3/uL [facility] Monocytes/100 WBC (Bld) 6.1 % [facility] Neutrophils (Bld) [#/Vol] 5.48 10*3/uL [facility] Neutrophils/100 WBC (Bld) 64.2 % [facility] Nucleated RBC (Bld) [#/Vol] NINF [facility] Nucleated RBC/100 WBC (Bld) [Ratio] 0.0 % /100 WBC [facility] Platelet mean volume (Bld) [Entitic vol] 10.8 fL 9.0 - 12.7 fL [facility] Platelets (Bld) [#/Vol] 264 10*3/uL [facility] RBC (Bld) [#/Vol] 5.19 10*6/uL 4.20 - 6.0 0 m/uL [facility] WBC (Bld) [#/Vol] 8.53 10*3/uL [facility] LD LACTATE DEHYDROon 023 LDH [Catalytic activity/Vol] 175 U/L 135 - 225 U/L [facility] Comment on above: Hemolysis present. T he [...] Interpretation and review of laboratory results Normal [facility] No Panel Informationon 10-31 Radiology Study observation (narrative) [facility] ALPHA FETOPROTEIN BLon 07-10 AFP [Mass/Vol] <11.0 ng/mL [facility] CBC W Auto Differential pane l (Bld)on 07-09-2022 Basophils (Bld) [#/Vol] 0.08 10*3/uL <0.11 k/uL [facility] Basophils/100 WBC (Bld) 0.8 % [facility] Differential cell count method Nom (Bld) Auto [facility] Eosinophils (Bld) [#/Vol] 0.21 10*3/uL <0.46 k/uL [facility] Eosinophils/100 WBC (Bld) 2.0 % [facility] Erythrocyte distribution width (RBC) [Ratio] 12.6 % 11.5 - 15.0 % [facility] Hematocrit (Bld) [Volume fraction] 43.3 % 39.0 - 51.0 % [facility] Hemoglobin (Bld) [Mass/Vol] 15.1 g/dL 13.0 - 17.0 g/dL [facility] Immature granulocytes (Bld) [#/Vol] 0.04 10*3/uL <0.10 k/uL [facility] Immature granulocytes/100 WBC (Bld) 0.4 % [facility] Lymphocytes (Bld) [#/Vol] 2.69 10*3/uL 1.00 - 4.00 k/uL [facility] Lymphocytes/100 WBC (Bld) 25.5 % [facility] MCH (RBC) [Entitic mass] 29.5 pg 26.0 - 34.0 pg [facility] MCHC (RBC) [Mass/Vol] 34.9 g/dL 30.5 - 36.0 g/dL [facility] MCV (RBC) [Entitic vol] 84.7 fL 80.0 - 100.0 fL [facility] Monocytes (Bld) [#/Vol] 0.73 10*3/uL <0.87 k/uL [facility] Monocytes/100 WBC (Bld) 6.9 % [facility] Neutrophils (Bld) [#/Vol] 6.79 10*3/uL 1.45 - 7.50 k/uL [facility] Neutrophils/100 WBC (Bld) 64.4 % [facility] Nucleated RBC (Bld) [#/Vol] <0.01 k/uL [facility] Nucleated RBC/100 WBC (Bld) [Ratio] 0.0 /100 WBC [facility] Platelet mean volume (Bld) [Entitic vol] 9.9 fL 9.0 - 12.7 fL [facility] Platelets (Bld) [#/Vol] 250 10*3/uL 150 - 400 k/uL [facility] RBC (Bld) [#/Vol] 5.11 10*6/uL 4.20 - 6.0 0 m/uL [facility] WBC (Bld) [#/Vol] 10.54 10*3/uL 3.70 - 11.00 k/uL [facility] Comprehensive metabolic 2000 panelon 07-09-2022 Albumin [Mass/Vol] 4.6 g/dL 3.9 - 4.9 g/dL [facility] ALP [Catalytic activity/Vol] 66 U/L 38 - 113 U/L [facility] ALT [Catalytic activity/Vol] 18 U/L 10 - 54 U/L [facility] Anion gap [Moles/Vol] 12 mmol/L 9 - 18 mmol/L [facility] AST [Catalytic activity/Vol] 16 U/L 14 - 40 U/L [facility] Bilirubin [Mass/Vol] 0.2 mg/dL 0.2 - 1 .3 mg/dL [facility] Calcium [Mass/Vol] 9.2 mg/dL 8.5 - 10. 2 mg/dL [facility] Chloride [Moles/Vol] 102 mmol/L 97 - 10 5 mmol/L [facility] CO2 [Moles/Vol] 23 mmol/L 22 - 30 mmol/L [facility] Creatinine [Mass/Vol] 1.06 mg/dL 0.73 - 1.22 mg/dL [facility] Estimated Glomerular Filtration Rate 87 mL/min/1.73m >=60 mL/min/1.73 m [facility] Glucose [Mass/Vol] 124 mg/dL High 74 - 99 mg/dL [facility] Potassium [Moles/Vol] 3.8 mmol/L 3.7 - 5.1 mmol/L [facility] Protein [Mass/Vol] 7.1 g/dL 6.3 - 8.0 g/dL [facility] Sodium [Moles/Vol] 137 mmol/L 136 - 144 mmol/L [facility] Urea nitrogen [Mass/Vol] 23 mg/dL 9 - 24 mg/dL [facility] LD LACTATE DEHYDROon 023 LDH [Catalytic activity/Vol] 185 U/L 135 - 225 U/L [facility] CT Abdomen and Pelvis W cont rast [...] any questions regarding this interpretation, please call [phone]. If you are unable to reach us at the number above, please feel free to contact [facility] [phone]. DIVISION OF RADIOLOGY * * *Final Report* * * DATE OF EXAM: Apr 03 2022 2:53PM [facility] 0530 - CT ABD/PEL W IVCON / [...] product (DLP) for this visit = 1988 mGy*cm. CT Dose Reduction Employed: mAs-kVp adjusted [...] chest CT performed will be reported separately. Floor Cleaner (topogram) images: No additional findings. DIVISION OF RADIOLOGY Provider, [facility] - 04/04/2022 * * *Final Report* * * DATE OF EXAM: Apr 03 2022 2:53PM [facility] 0530 - CT ABD/PEL W IVCON / [...] product (DLP) for this visit = 1988 mGy*cm. CT Dose Reduction Employed: mAs-kVp adjusted [...] chest CT performed will be reported separately. Floor Cleaner (topogram) images: No additional findings. IMPRESSION IMPRESSION: [...] any questions regarding this interpretation, please call [phone]. If you are unable to reach us at the number above, please feel free to contact [facility] at [phone]. [facility] CT Chest W contrast Tammi IMPRESSION: 1. [...] any questions regarding this interpretation, please call [phone]. If you are unable to reach us at the number above, please feel free to contact [facility] at [phone]. DIVISION OF RADIOLOGY * * *Final Report* * * DATE OF EXAM: Apr 03 2022 2:53PM [facility] 0539 - CT CHEST W IVCON / [...] CT scan report for the abdomen findings. Floor Cleaner (topogram) images: No additional findings. DIVISION OF RADIOLOGY Provider, [facility] - 04/04/2022 * * *Final Report* * * DATE OF EXAM: Apr 03 2022 2:53PM [facility] 0539 - CT CHEST W IVCON / [...] CT scan report for the abdomen findings. Floor Cleaner (topogram) images: No additional findings. IMPRESSION IMPRESSION: [...] report reviewed and electronically signed by: IZABEL FLAK MD on Apr 04 2022 11:59AM EST Thank you for allowing us to participate in the care of your patient. Should there be any questions regarding this interpretation, please call [phone]. If you are unable to reach us at the number above, please feel free to contact [facility] at [phone]. [facility] No Panel InformationOrdered By: Ccf Provider on 04-04-2022 [facility] CBC W Auto Differential pane l (Bld)on 04-03-2022 Basophils (Bld) [#/Vol] 0.07 10*3/uL [facility] Basophils/100 WBC (Bld) 0.7 % [facility] Differential cell count method Nom (Bld) Auto [facility] Eosinophils (Bld) [#/Vol] 0.15 10*3/uL [facility] Eosinophils/100 WBC (Bld) 1.5 % [facility] Erythrocyte distribution width (RBC) [Ratio] 12.8 % 11.5 - 15.0 % [facility] Hematocrit (Bld) [Volume fraction] 43.5 % 39.0 - 51.0 % [facility] Hemoglobin (Bld) [Mass/Vol] 15.0 g/dL 13.0 - 17.0 g/dL [facility] Immature granulocytes (Bld) [#/Vol] 0.03 10*3/uL [facility] Immature granulocytes/100 WBC (Bld) 0.3 % [facility] Lymphocytes (Bld) [#/Vol] 2.39 10*3/uL [facility] Lymphocytes/100 WBC (Bld) 23.7 % [facility] MCH (RBC) [Entitic mass] 29.2 pg 26.0 - 34.0 pg [facility] MCHC (RBC) [Mass/Vol] 34.5 g/dL 30.5 - 36.0 g/dL [facility] MCV (RBC) [Entitic vol] 84.6 fL 80.0 - 100.0 fL [facility] Monocytes (Bld) [#/Vol] 0.61 10*3/uL [facility] Monocytes/100 WBC (Bld) 6.0 % [facility] Neutrophils (Bld) [#/Vol] 6.85 10*3/uL [facility] Neutrophils/100 WBC (Bld) 67.8 % [facility] Nucleated RBC (Bld) [#/Vol] [facility] Nucleated RBC/100 WBC (Bld) [Ratio] 0.0 % /100 WBC [facility] Platelet mean volume (Bld) [Entitic vol] 10.3 fL 9.0 - 12.7 fL [facility] Platelets (Bld) [#/Vol] 271 10*3/uL [facility] RBC (Bld) [#/Vol] 5.14 10*6/uL 4.20 - 6.0 0 m/uL [facility] WBC (Bld) [#/Vol] 10.10 10*3/uL [facility] This is an appended report. These results have been appended to a previously verified report. [facility] Comprehensive metabolic 2000 panelOrdered By: Stephanie Abbott on 04-03-2022 Albumin [Mass/Vol] 4.3 g/dL 3.9 - 4.9 g/dL [facility] ALP [Catalytic activity/Vol] 64 U/L 38 - 113 U/L [facility] ALT [Catalytic activity/Vol] 18 U/L 10 - 54 U/L [facility] Anion gap [Moles/Vol] 11 mmol/L 9 - 18 mmol/L [facility] AST [Catalytic activity/Vol] 16 U/L 14 - 40 U/L [facility] Bilirubin [Mass/Vol] 0.4 mg/dL 0.2 - 1 .3 mg/dL [facility] Calcium [Mass/Vol] 9.3 mg/dL 8.5 - 10. 2 mg/dL [facility] Chloride [Moles/Vol] 102 mmol/L 97 - 10 5 mmol/L [facility] CO2 [Moles/Vol] 24 mmol/L 22 - 30 mmol/L [facility] Creatinine [Mass/Vol] 0.88 mg/dL 0.73 - 1.22 mg/dL [facility] GFR/1.73 sq M.predicted among non-blacks MDRD (S/P/Bld) [Vol rate/Area] 107 mL/min/{1.73_m2} - PINF [facility] Comment on above: Estimated Glomerular Filtration Rate [...] [Mass/Vol] 92 mg/dL 74 - 99 mg/dL [facility] Comment on above: The Stateless Diabete s Association (ADA) provides guidance for [...] Standards of Medical Care in Diabetes 2016, Stateless Diabetes Association. Diabetes Care. 2016.39(Suppl 1). Interpretation and review of laboratory results Normal [facility] Potassium [Moles/Vol] 3.8 mmol/L 3.7 - 5.1 mmol/L [facility] Protein [Mass/Vol] 6.9 g/dL 6.3 - 8.0 g/dL [facility] Sodium [Moles/Vol] 137 mmol/L 136 - 144 mmol/L [facility] Urea nitrogen [Mass/Vol] 16 mg/dL 9 - 24 mg/dL [facility] LD LACTATE DEHYDROon 022 LDH [Catalytic activity/Vol] 186 U/L 135 - 225 U/L [facility] Comment on above: Hemolysis present. T he [...] Interpretation and review of laboratory results Normal [facility] No Panel Informationon 04-03 Radiology Study observation (narrative) [facility] BETA HCG QUANT TUMOR MARKERo n 09-21-2021 HCG.beta subunit Qn m[IU]/mL [facility] Comment on above: INTERPRETIVE INFORMA [...] reference intervals for this test in the [facility] Laboratory Test Directory ([employer]news). This test was developed and its performance characteristics determined by [facility]. It has not been cleared or approved by the US Food and Drug Administration. This test was performed in a CLIA certified laboratory and is intended for clinical purposes. Performed By: [facility] [address] [place] [id number] Protocol Officer: Skylar Sloan MD HCG.beta subunit Qnon 2021 [facility] AFP [Mass/Vol]Ordered By: Tj Ziegler on 09-20-2021 Interpretation and review of laboratory results Normal [facility] ALPHA FETOPROTEIN BLOrdered By: Kinsey Ziegler on 09-20-2021 AFP [Mass/Vol] ng/mL [facility] - 11.0 ng/mL [facility] Comment on above: Result rechecked. The test [...] not been established for newborns. The Siemens Centaur XP is used. Results obtained with different assay methods or kits cannot be used interchangeably. CBC W Auto Differential pane l (Bld)on 09-19-2021 Basophils (Bld) [#/Vol] 0.05 10*3/uL [facility] Basophils/100 WBC (Bld) 0.5 % [facility] Differential cell count method Nom (Bld) Auto [facility] Eosinophils (Bld) [#/Vol] 0.18 10*3/uL [facility] Eosinophils/100 WBC (Bld) 1.7 % [facility] Erythrocyte distribution width (RBC) [Ratio] 12.9 % 11.5 - 15.0 % [facility] Hematocrit (Bld) [Volume fraction] 43.5 % 39.0 - 51.0 % [facility] Hemoglobin (Bld) [Mass/Vol] 14.8 g/dL 13.0 - 17.0 g/dL [facility] Immature granulocytes (Bld) [#/Vol] 0.06 10*3/uL [facility] Immature granulocytes/100 WBC (Bld) 0.6 % [facility] Lymphocytes (Bld) [#/Vol] 2.81 10*3/uL [facility] Lymphocytes/100 WBC (Bld) 26.5 % [facility] MCH (RBC) [Entitic mass] 28.6 pg 26.0 - 34.0 pg [facility] MCHC (RBC) [Mass/Vol] 34.0 g/dL 30.5 - 36.0 g/dL [facility] MCV (RBC) [Entitic vol] 84.1 fL 80.0 - 100.0 fL [facility] Monocytes (Bld) [#/Vol] 0.61 10*3/uL NINF [facility] Monocytes/100 WBC (Bld) 5.7 % [facility] Neutrophils (Bld) [#/Vol] 6.90 10*3/uL [facility] Neutrophils/100 WBC (Bld) 65.0 % [facility] Nucleated RBC (Bld) [#/Vol] NINF [facility] Nucleated RBC/100 WBC (Bld) [Ratio] 0.0 % /100 WBC [facility] Platelet mean volume (Bld) [Entitic vol] 9.9 fL 9.0 - 12.7 fL [facility] Platelets (Bld) [#/Vol] 278 10*3/uL [facility] RBC (Bld) [#/Vol] 5.17 10*6/uL 4.20 - 6.0 0 m/uL [facility] WBC (Bld) [#/Vol] 10.61 10*3/uL [facility] This is an appended report. These results have been appended to a previously verified report. [facility] CT Abdomen and Pelvis W cont [...] any questions regarding this interpretation, please call [phone]. If you are unable to reach us at the number above, please feel free to contact [facility] at [phone]. DIVISION OF RADIOLOGY * * *Final Report* * * DATE OF EXAM: Sep 19 2021 3:24PM [facility] 0530 - CT ABD/PEL W IVCON / [...] chest CT performed will be reported separately. Floor Cleaner (topogram) images: No additional findings. DIVISION OF RADIOLOGY Provider, [facility] - 09/19/2021 * * *Final Report* * * DATE OF EXAM: Sep 19 2021 3:24PM [facility] 0530 - CT ABD/PEL W IVCON / [...] chest CT performed will be reported separately. Floor Cleaner (topogram) images: No additional findings. IMPRESSION IMPRESSION: [...] any questions regarding this interpretation, please call [phone]. If you are unable to reach us at the number above, please feel free to contact [facility] at [phone]. [facility] CT Abdomen and Pelvis W cont rast IVOrdered By: Ccf Provider on 09-19-[address] [facility] [address] Chest W contrast Tammi IMPRESSION: No [...] any questions regarding this interpretation, please call [phone]. If you are unable to reach us at the number above, please feel free to contact [facility] at [phone]. DIVISION OF RADIOLOGY * * *Final Report* * * DATE OF EXAM: Sep 19 2021 3:24PM [facility] 0539 - CT CHEST W IVCON / [...] was performed concurrently and is reported separately. Floor Cleaner (topogram) images: No additional findings. DIVISION OF RADIOLOGY Provider, [facility] - 09/19/2021 * * *Final Report* * * DATE OF EXAM: Sep 19 2021 3:24PM [facility] 0539 - CT CHEST W IVCON / [...] was performed concurrently and is reported separately. Floor Cleaner (topogram) images: No additional findings. IMPRESSION IMPRESSION: [...] any questions regarding this interpretation, please call [phone]. If you are unable to reach us at the number above, please feel free to contact [facility] at [phone]. [facility] Comprehensive metabolic 2000 panelOrdered By: Chace Morataya on 09-19-2021 Albumin [Mass/Vol] 4.5 g/dL 3.9 - 4.9 g/dL [facility] ALP [Catalytic activity/Vol] 62 U/L 38 - 113 U/L [facility] ALT [Catalytic activity/Vol] 23 U/L 10 - 54 U/L [facility] Anion gap [Moles/Vol] 10 mmol/L 9 - 18 mmol/L [facility] AST [Catalytic activity/Vol] 15 U/L 14 - 40 U/L [facility] Bilirubin [Mass/Vol] 0.2 mg/dL 0.2 - 1 .3 mg/dL [facility] Calcium [Mass/Vol] 9.5 mg/dL 8.5 - 10. 2 mg/dL [facility] Chloride [Moles/Vol] 102 mmol/L 97 - 10 5 mmol/L [facility] CO2 [Moles/Vol] 25 mmol/L 22 - 30 mmol/L [facility] Creatinine [Mass/Vol] 0.84 mg/dL 0.73 - 1.22 mg/dL [facility] GFR/1.73 sq M.predicted among non-blacks MDRD (S/P/Bld) [Vol rate/Area] 108 mL/min/{1.73_m2} - PINF [facility] Comment on above: Estimated Glomerular Filtration Rate [...] [Mass/Vol] 93 mg/dL 74 - 99 mg/dL [facility] Comment on above: The Stateless Diabete s Association (ADA) provides guidance for [...] Standards of Medical Care in Diabetes 2016, Stateless Diabetes Association. Diabetes Care. 2016.39(Suppl 1). Interpretation and review of laboratory results Normal [facility] Potassium [Moles/Vol] 3.9 mmol/L 3.7 - 5.1 mmol/L [facility] Protein [Mass/Vol] 7.1 g/dL 6.3 - 8.0 g/dL [facility] Sodium [Moles/Vol] 137 mmol/L 136 - 144 mmol/L [facility] Urea nitrogen [Mass/Vol] 20 mg/dL 9 - 24 mg/dL [facility] LD LACTATE DEHYDROon 04-05-2 022 LDH [Catalytic activity/Vol] 178 U/L 135 - 225 U/L [facility] LDH [Catalytic activity/Vol] on 09-19-2021 Interpretation and review of laboratory results Normal [facility] No Panel Informationon 09-19 Radiology Study observation (narrative) [facility] CBC AUTO DIFFon 08-17-2021 BASO # 0.0 103/ul Normal 0.0-0.1 [facility] Comment on above: Performed By: #### C BC #### [facility] [address] [address] [address] Nehemias Leal Basophils/100 WBC (Bld) 0.5 % Normal 0.2-2.0 [facility] Comment on above: Performed By: #### C BC #### [facility] [address] [place] [address] Dr. Nehemias Leal EO # 0.2 103/ul Normal 0.0-0.7 [facility] Comment on above: Performed By: #### C BC #### [facility] [address] [place] [address] Dr. Nehemias Leal Eosinophils/100 WBC (Bld) 2.8 % Normal 0.9-7.0 [facility] Comment on above: Performed By: #### C BC #### [facility] [address] [place] [address] Dr. Nehemias Leal Erythrocyte distribution width (RBC) [Ratio] 12.7 % Normal 11.0-15.0 [facility] Comment on above: Performed By: #### C BC #### [facility] [address] [place] [address] Dr. Nehemias Leal Hematocrit (Bld) [Volume fraction] 44.8 % Normal 42.0-54.0 [facility] Comment on above: Performed By: #### C BC #### [facility] [address] [place] [address] Dr. Nehemias Leal Hemoglobin (Bld) [Mass/Vol] 15.3 g/dL Normal 14.0-18.0 [facility] Comment on above: Performed By: #### C BC #### [facility] [address] [place] [address] Dr. Nehemias Leal IG # 0.03 10e3/ul Normal 0.00-0.03 [facility] Comment on above: Performed By: #### C BC #### [facility] [address] [place] [address] Dr. Nehemias Leal IG % 0.4 % Normal 0.0-0.5 [facility] Comment on above: Performed By: #### C BC #### [facility] [address] [place] [address] Dr. Nehemias Leal LYMPH # 2.7 103/ul Normal 1.2-3.8 [facility] Comment on above: Performed By: #### C BC #### [facility] [address] [place] [address] Dr. Nehemias Leal Lymphocytes/100 WBC (Bld) 33.6 % Normal 20.5-60.0 [facility] Comment on above: Performed By: #### C BC #### [facility] [address] [place] [address] Dr. Nehemias Leal MANUAL DIFF REQ NO Normal [facility] Comment on above: Performed By: #### C BC #### [facility] [address] [place] [address] Dr. Nehemias Leal MCH (RBC) [Entitic mass] 29.2 pg Normal 25.9-34.0 [facility] Comment on above: Performed By: #### C BC #### [facility] [address] [place] [address] Dr. Nehemias Leal MCHC (RBC) [Mass/Vol] 34.2 g/dL Normal 29.9-35.2 [facility] Comment on above: Performed By: #### C BC #### [facility] [address] [place] [address] Dr. Nehemias Leal MCV (RBC) [Entitic vol] 85.5 fL Normal 80.0-94.0 [facility] Comment on above: Performed By: #### C BC #### [facility] [address] [place] [address] Dr. Nehemias Leal MONO # 0.6 103/ul Normal 0.3-0.8 [facility] Comment on above: Performed By: #### C BC #### [facility] [address] [place] [address] Dr. Nehemias Leal Monocytes/100 WBC (Bld) 7.9 % Normal 1.7-12.0 [facility] Comment on above: Performed By: #### C BC #### [facility] [address] [place] [address] Dr. Nehemias Leal NEUT # 4.4 103/ul Normal 1.4-6.5 [facility] Comment on above: Performed By: #### C BC #### [facility] [address] [place] [address] Dr. Nehemias Leal Neutrophils/100 WBC (Bld) 54.8 % Normal 43.0-75.0 [facility] Comment on above: Performed By: #### C BC #### [facility] [address] [place] [address] Dr. Nehemias Leal Platelet mean volume (Bld) [Entitic vol] 9.8 fL Normal 9.5-13.5 [facility] Comment on above: Performed By: #### C BC #### [facility] [address] [place] [address] Dr. Nehemias Leal PLT 264 103/ul Normal 150-450 [facility] Comment on above: Performed By: #### C BC #### [facility] [address] [place] [address] Dr. Nehemias Leal RBC 5.24 106/ul Normal 4.70-6.10 [facility] Comment on above: Performed By: #### C BC #### [facility] [address] [place] [address] Dr. Nehemias Leal WBC 7.9 103/ul Normal 4.0-11.0 [facility] Comment on above: Performed By: #### C BC #### [facility] [address] [place] [address] Dr. Nehemias Leal PROF 14(COMP METB)on 022 Albumin [Mass/Vol] 3.8 g/dL Normal 3.5-5.0 [facility] Comment on above: Performed By: #### C CHANNING, HSTROPN #### [facility] [address] [place] [address] Dr. Nehemias Leal Albumin/Globulin [Mass ratio] 1.0 {ratio} Normal [facility] Comment on above: Performed By: #### C CHANNING, HSTROPN #### [facility] [address] [place] [address] Dr. Nehemias Leal ALP [Catalytic activity/Vol] 73 U/L Normal 38-126 [facility] Comment on above: Performed By: #### C CHANNING, HSTROPN #### [facility] [address] [place] [address] Dr. Nehemias Leal ALT [Catalytic activity/Vol] 27 U/L Normal 21-72 [facility] Comment on above: Performed By: #### C CHANNING HSTROPN #### [facility] [address] [place] [address] Dr. Nehemias Leal Anion gap [Moles/Vol] 11.0 mmol/L Normal [facility] Comment on above: Performed By: #### C CHANNING, HSTROPN #### [facility] [address] [place] [address] Dr. Nehemias Leal AST [Catalytic activity/Vol] 17 U/L Normal 17-59 [facility] Comment on above: Performed By: #### C CHANNING, HSTROPN #### [facility] [address] [place] [address] Dr. Nehemias Leal Bilirubin [Mass/Vol] 0.2 mg/dL Normal 0.2-1.3 [facility] Comment on above: Performed By: #### C CHANNING, HSTROPN #### [facility] [address] [place] [address] Dr. Nehemias Leal Calcium [Mass/Vol] 9.0 mg/dL Normal 8.4-10.2 [facility] Comment on above: Performed By: #### C CHANNING, HSTROPN #### [facility] [address] [place], [place] [id number] Dr. Nehemias Leal Chloride [Moles/Vol] 104 mmol/L Normal 98-107 [facility] Comment on above: Performed By: #### C MP, HSTROPN #### [facility] [address] [place] [address] Dr. Nehemias Leal CO2 [Moles/Vol] 25.6 mmol/L Normal 22.0-30.0 [facility] Comment on above: Performed By: #### C MP, HSTROPN #### [facility] [address] [address] [address] Nehemias Leal Creatinine [Mass/Vol] 1.09 mg/dL Normal 0.66-1.25 [facility] Comment on above: Performed By: #### C CHANNING, HSTROPN #### [facility] [address] [place] [address] Dr. Nehemias Leal EGFR-AF IRAQI >60 Normal >=60 [facility] Comment on above: Performed By: #### C CHANNING, HSTROPN #### [facility] [address] [place] [address] Dr. Nehemias Leal EGFR-NON AF IRAQI >60 Normal >=60 [facility] Comment on above: Performed By: #### C CHANNING, HSTROPN #### [facility] [address] [place] [address] Dr. Nehemias Leal Globulin (S) [Mass/Vol] 3.7 g/dL Normal [facility] Comment on above: Performed By: #### C CHANNING, HSTROPN #### [facility] [address] [place] [address] Dr. Nehemias Leal Glucose [Mass/Vol] 95 mg/dL Normal 74-106 [facility] Comment on above: Performed By: #### C MP, HSTROPN #### [facility] [address] [place] [address] Dr. Nehemias Leal Potassium [Moles/Vol] 3.6 mmol/L Normal 3.4-5.0 [facility] Comment on above: Performed By: #### C CHANNING, HSTROPN #### [facility] [address] [address] [address] Nehemias Leal Protein [Mass/Vol] 7.5 g/dL Normal 6.1-8.2 [facility] Comment on above: Performed By: #### C MP, HSTROPN #### [facility] [address] [address] [address] Nehemias Leal Sodium [Moles/Vol] 137 mmol/L Normal 137-145 [facility] Comment on above: Performed By: #### C MP, HSTROPN #### [facility] [address] [place] [address] Dr. Nehemias Leal Urea nitrogen [Mass/Vol] 22.0 mg/dL Critically high 9.0-20.0 [facility] Comment on above: Performed By: #### C MP, HSTROPN #### [facility] [address] [place] [address] Dr. Nehemias Leal Urea nitrogen/Creatinine [Mass ratio] 20.2 mg/mg Normal [facility] Comment on above: Performed By: #### C MP, HSTROPN #### [facility] [address] [place] [address] Dr. Nehemias Leal PROTIMEon 08-17-2021 INR Coag (PPP) [Relative time] 0.94 {INR} Normal [facility] Comment on above: Performed By: #### A FP. #### [facility] [address] [place] [address] Dr. Nehemias Leal INR GUIDELINES SEE BELOW Normal [facility] Comment on above: Result Comment: LUIS RED INR: 2.0 - 3.0 CONDITIONS NOT LISTED BELOW 2.5 - 3.5 FOR PROSTHETIC HEART VALVE REPLACEMENT 2.5 - 3.5 RECURRENT THROMBOSIS Performed By: #### A FP. #### [facility] [address] [place] [address] Dr. Nehemias Leal PT Coag (PPP) [Time] 10.2 s Normal 9.0-11.6 [facility] Comment on above: Performed By: #### A FP. #### [facility] [address] [address] [address] Nehemias Leal PTTon 08-17-2021 aPTT Coag (Bld) [Time] 28.2 s Normal 22.3-36.2 [facility] Comment on above: Performed By: #### A FP. #### [facility] [address] [address] [address] Nehemias Leal TROPONIN, HIGH SENSITIVITYon 08-17-2021 HSTROP 6.0 pg/mL Normal 4.0-42.2 [facility] Comment on above: Result Comment: CUT- OFF POINTS HAVE BEEN ESTABLISHED BASED ON THE FOURTH UNIVERSAL DEFINITIONS OF MYOCARDIAL INFARCTION. THE UPPER REFERENCE LIMIT (URL) OF TROPONIN, DEFINED THE 99TH PERCENTILE OF cTnI DISTRIBUTION IN A REFERENCE POPULATION, HAS BEEN CONFIRMED THE DECISION THRESHOLD FOR MO DIAGNOSIS. Performed By: #### C MP, HSTROPN #### [facility] [address] [place] [address] Dr. Nehemias Leal AFP (TUMOR MARKER)on 022 AFP, Serum, Tumor Marker 1.3 ng/mL Normal 0.0-8.3 [facility] Comment on above: Result Comment: [employer] Electrochemiluminescence Immunoassay (ECLIA) . Values obtained with different assay methods or kits cannot be used interchangeably. Results cannot be interpreted as absolute evidence of the presence or absence of malignant disease. . This test is not interpretable in females. . Effective August 21, 2021 AFP, Serum, Tumor Marker reference interval will be changing to: Age Male Female 0 - 7 days 0.0 - 50194.8 0.0 - 67358.8 8 - 30 days 0.0 - 85702.4 0.0 - 02488.4 1 month 0.0 - 1747.8 0.0 - [...] 0.0 - 8.7 Performed By: #### A FP. #### [facility] [address] [place] [address] Dr. Nehemias Leal HCG QUANT TUMOR MARKERon HCG QNT TUMOR MARKER <1 Normal 0-3 [facility] Comment on above: Result Comment: [employer] Electrochemiluminescence Immunoassay (ECLIA) . The [employer] [...] developed and its performance characteristics determined by [facility] [employer]. It has not been cleared or approved by the Food and Drug Administration for use as a tumor marker. . This test is not interpretable as a tumor marker in females. Performed By: #### H CGTMOR #### [facility] [address] [place] [address] Dr. Nehemias Leal POINT OF CARE GLUCOSEon 07-18 Glucose [Mass/Vol] 111 mg/dL Critically high 74-106 T [facility] Comment on above: Performed By: #### P OCGLUC #### [facility] [address] [place] [address] Dr. Nehemias Leal CBC AUTO DIFFon 08-02-2021 BASO # 0.1 103/ul Normal 0.0-0.1 [facility] Comment on above: Performed By: #### A FP. #### [facility] [address] [place] [address] Dr. Nehemias Leal Basophils/100 WBC (Bld) 0.5 % Normal 0.2-2.0 [facility] Comment on above: Performed By: #### A FP. #### [facility] [address] [place] [address] Dr. Nehemias Leal EO # 0.2 103/ul Normal 0.0-0.7 [facility] Comment on above: Performed By: #### A FP. #### [facility] [address] [place] [address] Dr. Nehemias Leal Eosinophils/100 WBC (Bld) 1.7 % Normal 0.9-7.0 [facility] Comment on above: Performed By: #### A FP. #### [facility] [address] [place] [address] Dr. Nehemias Leal Erythrocyte distribution width (RBC) [Ratio] 12.8 % Normal 11.0-15.0 [facility] Comment on above: Performed By: #### A FP. #### [facility] [address] [place] [address] Dr. Nehemias Leal Hematocrit (Bld) [Volume fraction] 46.2 % Normal 42.0-54.0 [facility] Comment on above: Performed By: #### A FP. #### [facility] [address] [place] [address] Dr. Nehemias Leal Hemoglobin (Bld) [Mass/Vol] 15.8 g/dL Normal 14.0-18.0 [facility] Comment on above: Performed By: #### A FP. #### [facility] [address] [place] [address] Dr. Nehemias Leal IG # 0.05 10e3/ul Critically high 0.00-0.03 [facility] Comment on above: Performed By: #### A FP. #### [facility] [address] [place] [address] Dr. Nehemias Leal IG % 0.5 % Normal 0.0-0.5 [facility] Comment on above: Performed By: #### A FP. #### [facility] [address] [place] [address] Dr. Nehemias Leal LYMPH # 2.5 103/ul Normal 1.2-3.8 [facility] Comment on above: Performed By: #### A FP. #### [facility] [address] [place] [address] Dr. Nehemias Leal Lymphocytes/100 WBC (Bld) 22.9 % Normal 20.5-60.0 [facility] Comment on above: Performed By: #### A FP. #### [facility] [address] [place] [address] Dr. Nehemias Leal MANUAL DIFF REQ NO Normal [facility] Comment on above: Performed By: #### A FP. #### [facility] [address] [place] [address] Dr. Nehemias Leal MCH (RBC) [Entitic mass] 29.3 pg Normal 25.9-34.0 [facility] Comment on above: Performed By: #### A FP. #### [facility] [address] [place] [address] Dr. Nehemias Leal MCHC (RBC) [Mass/Vol] 34.2 g/dL Normal 29.9-35.2 [facility] Comment on above: Performed By: #### A FP. #### [facility] [address] [place] [address] Dr. Nehemias Leal MCV (RBC) [Entitic vol] 85.7 fL Normal 80.0-94.0 [facility] Comment on above: Performed By: #### A FP. #### [facility] [address] [place] [address] Dr. Nehemias Leal MONO # 0.7 103/ul Normal 0.3-0.8 [facility] Comment on above: Performed By: #### A FP. #### [facility] [address] [place] [address] Dr. Nehemias Leal Monocytes/100 WBC (Bld) 6.7 % Normal 1.7-12.0 [facility] Comment on above: Performed By: #### A FP. #### [facility] [address] [place] [address] Dr. Nehemias Leal NEUT # 7.4 103/ul Critically high 1.4-6.5 [facility] Comment on above: Performed By: #### A FP. #### [facility] [address] [place] [address] Dr. Nehemias Leal Neutrophils/100 WBC (Bld) 67.7 % Normal 43.0-75.0 [facility] Comment on above: Performed By: #### A FP. #### [facility] [address] [place] [address] Dr. Nehemias Leal Platelet mean volume (Bld) [Entitic vol] 9.8 fL Normal 9.5-13.5 [facility] Comment on above: Performed By: #### A FP. #### [facility] [address] [place] [address] Dr. Nehemias Leal PLT 283 103/ul Normal 150-450 [facility] Comment on above: Performed By: #### A FP. #### [facility] [address] [place] [address] Dr. Nehemias Leal RBC 5.39 106/ul Normal 4.70-6.10 [facility] Comment on above: Performed By: #### A FP. #### [facility] [address] [place] [address] Dr. Nehemias Leal WBC 11.0 103/ul Normal 4.0-11.0 [facility] Comment on above: Performed By: #### A FP. #### [facility] [address] [place] [address] Dr. Nehemias Leal [facility] SARS-CoV-2 (COVID-19) RNA ANKIT+probe Ql (Unsp spec) Not detected Normal NOT DETECTED [facility] Comment on above: Result Comment: When diagnostic testing is negative, the possibility of a false negative should be considered in the context of a patient's recent exposures and the presence of clinical signs and symptoms consistent with SARS-CoV-2. This test is not yet approved or cleared by the [place] Food and Drug Administration (FDA). This test was developed by [employer], [place], [place]. The performance characteristics of this test were validated by [facility]. The results are not intended to be used as the sole means for clinical diagnosis or patient management decisions. [facility] is authorized under Clinical Laboratory Improvement [...] for this test is supported by the [employer] Manager of Health and Human Service's declaration that [...] used). Performed By: #### A FP. #### [facility] [address] [place] [address] Dr. Nehemias eLal LDHon 08-02-2021 LDH 185 U/L Normal 122-222 [facility] Comment on above: Performed By: #### A FP. #### [facility] [address] [place] [address] Dr. Nehemias Leal PROF CHEM 8 (BAS METB)on Anion gap [Moles/Vol] 11.2 mmol/L Normal [facility] Comment on above: Performed By: #### A FP. #### [facility] [address] [place] [address] Dr. Nehemias Leal Calcium [Mass/Vol] 9.3 mg/dL Normal 8.4-10.2 [facility] Comment on above: Performed By: #### A FP. #### [facility] [address] [address] [address] Nehemias Lela Chloride [Moles/Vol] 103 mmol/L Normal 98-107 [facility] Comment on above: Performed By: #### A FP. #### [facility] [address] [place] [address] Dr. Nehemias Leal CO2 [Moles/Vol] 27.5 mmol/L Normal 22.0-30.0 [facility] Comment on above: Performed By: #### A FP. #### [facility] [address] [place] [address] Dr. Nehemias Leal Creatinine [Mass/Vol] 0.91 mg/dL Normal 0.66-1.25 [facility] Comment on above: Performed By: #### A FP. #### [facility] [address] [place] [address] Dr. Nehemias Leal EGFR-AF IRAQI >60 Normal >=60 [facility] Comment on above: Performed By: #### A FP. #### [facility] [address] [place] [address] Dr. Nehemias Leal EGFR-NON AF IRAQI >60 Normal >=60 [facility] Comment on above: Performed By: #### A FP. #### [facility] [address] [place] [address] Dr. Nehemias Leal Glucose [Mass/Vol] 108 mg/dL Critically high 74-106 [facility] Comment on above: Performed By: #### A FP. #### [facility] [address] [place] [address] Dr. Nehemias Leal Potassium [Moles/Vol] 3.7 mmol/L Normal 3.4-5.0 [facility] Comment on above: Performed By: #### A FP. #### [facility] [address] [place] [address] Dr. Nehemias Leal Sodium [Moles/Vol] 138 mmol/L Normal 137-145 [facility] Comment on above: Performed By: #### A FP. #### [facility] [address] [place] [address] Dr. Nehemias Leal Urea nitrogen [Mass/Vol] 17.0 mg/dL Normal 9.0-20.0 [facility] Comment on above: Performed By: #### A FP. #### [facility] [address] [place] [address] Dr. Nehemias Leal Urea nitrogen/Creatinine [Mass ratio] 18.7 mg/mg Normal [facility] Comment on above: Performed By: #### A FP. #### [facility] [address] [place] [address] Dr. Nehemias Leal PROTIMEon 08-02-2021 INR Coag (PPP) [Relative time] 0.98 {INR} Normal [facility] Comment on above: Performed By: #### P T, PTT #### [facility] [address] [place] [address] Dr. Nehemias Leal INR GUIDELINES SEE BELOW Normal [facility] Comment on above: Result Comment: LUIS RED INR: 2.0 - 3.0 CONDITIONS NOT LISTED BELOW 2.5 - 3.5 FOR PROSTHETIC HEART VALVE REPLACEMENT 2.5 - 3.5 RECURRENT THROMBOSIS Performed By: #### P T, PTT #### [facility] [address] [place] [address] Dr. Nehemias Leal PT Coag (PPP) [Time] 10.6 s Normal 9.0-11.6 [facility] Comment on above: Performed By: #### P T, PTT #### [facility] [address] [place] [address] Dr. Nehemias Leal PTTon 08-02-2021 aPTT Coag (Bld) [Time] 23.2 s Normal 22.3-36.2 [facility] Comment on above: Performed By: #### P T, PTT #### [facility] [address] [place] [address] Dr. Nehemias Leal US Testicular/Scrotumon 07-18 US [...] by Sandrita Ngo on 07/27/2021 1656 Normal [facility] CT Abdomen/Pelvis w/o Contra ston 06-14-2021 CT [...] hepatic steatosis. Report reported and signed by Flor Huerta on 06/14/2021 1225 Normal [facility] US Testicular/Scrotumon 12-2 US Testicular/Scrotum HISTORY: Right [...] be excluded. Report reported and signed by Flor Huerta on 06/14/2021 1304 Normal [facility] Vital Signs Date Time Vital Sign Value Performing Clinician Facility 05-25-2024 11:40-0500 Body height 177.8 cm Ashli Ni [employer] Work Phone: [facility] 05-25-2024 11:40-0500 Body mass index (BMI) [Ratio] 51.08 kg/m2 Ashli [employer] Work Phone: [facility] 05-25-2024 11:40-0500 Body temperature 97.9 [degF] [employer] Work Phone: [facility] 05-25-2024 11:40-0500 Body weight 161.48 kg Ashli [employer] Work Phone: [facility] 05-25-2024 11:40-0500 Diastolic blood pressure 80 mm[Hg] Ashli [employer] Work Phone: [facility] 05-25-2024 11:40-0500 Heart rate 79 /min Ashli Ni DO Work Phone: [facility] 05-25-2024 11:40-0500 SaO2% (BldA) [Mass fraction] 97 % Ashli Ni DO Work Phone: [facility] 05-25-2024 11:40-0500 Systolic blood pressure 118 mm[Hg] Ashli Ni DO Work Phone: [facility] 05-13-2024 09:15-0500 Body mass index (BMI) [Ratio] 49.62 kg/m2 NA Dhruv DELUCA Work Phone: [facility] 05-13-2024 09:15-0500 Body weight 161.3 kg ARJUN Jasso MD Work Phone: [facility] 05-13-2024 09:15-0500 Diastolic blood pressure 79 mm[Hg] ARJUN Jasso MD Work Phone: [facility] 05-13-2024 09:15-0500 Heart rate 65 /min ARJUN Jasso MD Work Phone: [facility] 05-13-2024 09:15-0500 Respiratory rate 18 /min ARJUN Jasso MD Work Phone: [facility] 05-13-2024 09:15-0500 SaO2% (BldA) [Mass fraction] 98 % ARJUN Jasso MD Work Phone: [facility] 05-13-2024 09:15-0500 Systolic blood pressure 125 mm[Hg] ARJUN Jasso MD Work Phone: [facility] 03-23-2024 10:05-0400 Blood Pressure Location Chantal LEWIS [facility] 03-23-2024 10:05-0400 Diastolic blood pressure 92 mm[Hg] Chantal LEWIS [facility] 03-23-2024 10:05-0400 Heart rate 70 /min Chantal LEWIS [facility] 03-23-2024 10:05-0400 Respiratory rate 16 /min Chantal LEWIS [facility] 03-23-2024 10:05-0400 Systolic blood pressure 130 mm[Hg] Chantal LEWIS [facility] 02-06-2024 15:46-0400 Body mass index (BMI) [Ratio] 48.79 kg/m2 Jordan Peters MD Work Phone: [facility] 02-06-2024 15:46-0400 Body temperature 97.81 [degF] Jordan Peters MD Work Phone: [facility] 02-06-2024 15:46-0400 Body weight 158.6 kg Jordan Peters MD Work Phone: [facility] 02-06-2024 15:46-0400 Diastolic blood pressure 91 mm[Hg] Jordan Peters MD Work Phone: [facility] 02-06-2024 15:46-0400 Heart rate 75 /min Jordan Peters MD Work Phone: [facility] 02-06-2024 15:46-0400 Respiratory rate 18 /min Jordan Peters MD Work Phone: [facility] 02-06-2024 15:46-0400 SaO2% (BldA) [Mass fraction] 100 % Jordan Peters MD Work Phone: [facility] 02-06-2024 15:46-0400 Systolic blood pressure 154 mm[Hg] Jordan Petesr MD Work Phone: [facility] 10-22-2023 15:01-0400 Body mass index (BMI) [Ratio] 48.91 kg/m2 ARJUN Jasso MD Work Phone: [facility] 05-07-2024 15:01-0400 Body temperature 97.3 [degF] ARJUN Jasso MD Work Phone: [facility] 10-22-2023 15:01-0400 Body weight 159 kg ARJUN Jasso MD Work Phone: [facility] 10-22-2023 15:01-0400 Diastolic blood pressure 85 mm[Hg] ARJUN Jasso MD Work Phone: [facility] 10-22-2023 15:01-0400 Heart rate 76 /min ARJUN Jasso MD Work Phone: [facility] 10-22-2023 15:01-0400 Respiratory rate 18 /min ARJUN Jasso MD Work Phone: [facility] 10-22-2023 15:01-0400 SaO2% (BldA) [Mass fraction] 95 % ARJUN Jasso MD Work Phone: [facility] 10-22-2023 15:01-0400 Systolic blood pressure 137 mm[Hg] ARJUN Jasso MD Work Phone: [facility] 08-13-2023 15:04-0500 Body temperature 97.11 [degF] ARJUN Jasso MD Work Phone: [facility] 08-13-2023 15:04-0500 Body weight 155.4 kg ARJUN Jasso MD Work Phone: [facility] 08-13-2023 15:04-0500 Diastolic blood pressure 86 mm[Hg] ARJUN Jasso MD Work Phone: [facility] 08-13-2023 15:04-0500 Heart rate 73 /min ARJUN Jasso MD Work Phone: [facility] 08-13-2023 15:04-0500 Respiratory rate 18 /min ARJUN Jasso MD Work Phone: [facility] 08-13-2023 15:04-0500 SaO2% (BldA) [Mass fraction] 97 % ARJUN Jasso MD Work Phone: [facility] 08-13-2023 15:04-0500 Systolic blood pressure 141 mm[Hg] ARJUN Jasso MD Work Phone: [facility] 07-22-2023 09:44-0500 Body temperature 97.7 [degF] ARJUN Jasso MD Work Phone: [facility] 07-22-2023 09:44-0500 Body weight 152.4 kg ARJUN Jasso MD Work Phone: [facility] 07-22-2023 09:44-0500 Diastolic blood pressure 108 mm[Hg] ARJUN Jasso MD Work Phone: [facility] 07-22-2023 09:44-0500 Heart rate 64 /min ARJUN Jasso MD Work Phone: [facility] 07-22-2023 09:44-0500 Respiratory rate 18 /min ARJUN Jasso MD Work Phone: [facility] 07-22-2023 09:44-0500 SaO2% (BldA) [Mass fraction] 98 % ARJUN Jasso MD Work Phone: [facility] 07-22-2023 09:44-0500 Systolic blood pressure 165 mm[Hg] ARJUN Jasso MD Work Phone: [facility] 06-20-2023 10:15-0500 Body height Krys Allen Other [employer] Other 06-20-2023 10:15-0500 Body mass index (BMI) [Ratio] 47.2 kg/m2 Krys Allen Other [employer] Other 06-20-2023 10:15-0500 Body weight 149.23 kg Krys Allen Other [employer] Other 06-20-2023 10:15-0500 Diastolic blood pressure 82 mm[Hg] Krys Allen Other [employer] Other 06-20-2023 10:15-0500 SaO2% (BldA) [Mass fraction] 98 % Krys Allen Other [employer] Other 06-20-2023 10:15-0500 Systolic blood pressure 137 mm[Hg] Krys Allen Other [employer] Other 05-23-2023 15:29-0500 Body temperature 97.7 [degF] Jordan Peters MD Work Phone: [facility] 05-23-2023 15:29-0500 Body weight 150.14 kg Jordan Peters MD Work Phone: [facility] 05-23-2023 15:29-0500 Diastolic blood pressure 92 mm[Hg] Jordan Peters MD Work Phone: [facility] 05-23-2023 15:29-0500 Heart rate 69 /min Jordan Peters MD Work Phone: [facility] 05-23-2023 15:29-0500 Respiratory rate 16 /min Jordan Peters MD Work Phone: [facility] 05-23-2023 15:29-0500 SaO2% (BldA) [Mass fraction] 95 % Jordan Peters MD Work Phone: [facility] 05-23-2023 15:29-0500 Systolic blood pressure 148 mm[Hg] Jordan Peters MD Work Phone: [facility] 02-14-2023 15:26-0400 Body height 180.3 cm Rosette Jossie PA-C Work Phone: [facility] 02-14-2023 15:26-0400 Body temperature 97.39 [degF] Rosette Jossie PA-C Work Phone: [facility] 02-14-2023 15:26-0400 Body weight 157.49 kg Rosette Jossie PA-C Work Phone: [facility] 02-14-2023 15:26-0400 Diastolic blood pressure 89 mm[Hg] Rosette Jossie PA-C Work Phone: [facility] 02-14-2023 15:26-0400 Heart rate 69 /min Rosette Jossie PA-C Work Phone: [facility] 02-14-2023 15:26-0400 Respiratory rate 16 /min Rosette Jossie PA-C Work Phone: [facility] 02-14-2023 15:26-0400 SaO2% (BldA) [Mass fraction] 97 % Rosette Jossie PA-C Work Phone: [facility] 02-14-2023 15:26-0400 Systolic blood pressure 156 mm[Hg] Rosette Jossie PA-C Work Phone: [facility] 07-09-2022 14:58-0500 Body temperature 97.5 [degF] Jordan Peters MD Work Phone: [facility] 07-09-2022 14:58-0500 Body weight 150.23 kg Jordan Peters MD Work Phone: [facility] 07-09-2022 14:58-0500 Diastolic blood pressure 91 mm[Hg] Jordan Peters MD Work Phone: [facility] 07-09-2022 14:58-0500 Heart rate 70 /min Jordan Peters MD Work Phone: [facility] 07-09-2022 14:58-0500 Respiratory rate 16 /min Jordan Peters MD Work Phone: [facility] 07-09-2022 14:58-0500 SaO2% (BldA) [Mass fraction] 96 % Jordan Peters MD Work Phone: [facility] 07-09-2022 14:58-0500 Systolic blood pressure 161 mm[Hg] Jordan Peters MD Work Phone: [facility] 04-09-2022 15:13-0400 Body height 179.1 cm Jordan Peters MD Work Phone: [facility] 04-09-2022 15:13-0400 Body temperature 97.59 [degF] Jordan Peters MD Work Phone: [facility] 04-09-2022 15:13-0400 Body weight 145.15 kg Jordan Peters MD Work Phone: [facility] 04-09-2022 15:13-0400 Diastolic blood pressure 83 mm[Hg] Jordan Peters MD Work Phone: [facility] 04-09-2022 15:13-0400 Heart rate 70 /min Jordan Peters MD Work Phone: [facility] 04-09-2022 15:13-0400 Respiratory rate 16 /min Jordan Peters MD Work Phone: [facility] 04-09-2022 15:13-0400 SaO2% (BldA) [Mass fraction] 97 % Jordan Peters MD Work Phone: [facility] 04-09-2022 15:13-0400 Systolic blood pressure 145 mm[Hg] Jordan Peters MD Work Phone: [facility] 12-26-2021 15:44-0400 Body height 179.1 cm Jordan Peters MD Work Phone: [facility] 12-26-2021 15:44-0400 Body temperature 97.5 [degF] Jordan Peters MD Work Phone: [facility] 12-26-2021 15:44-0400 Body weight 144.88 kg Jordan Peters MD Work Phone: [facility] 12-26-2021 15:44-0400 Diastolic blood pressure 90 mm[Hg] Jordan Peters MD Work Phone: [facility] 12-26-2021 15:44-0400 Heart rate 66 /min Jordan Peters MD Work Phone: [facility] 12-26-2021 15:44-0400 Respiratory rate 18 /min Jordan Peters MD Work Phone: [facility] 12-26-2021 15:44-0400 SaO2% (BldA) [Mass fraction] 97 % Jordan Peters MD Work Phone: [facility] 12-26-2021 15:44-0400 Systolic blood pressure 157 mm[Hg] Jordan Peters MD Work Phone: [facility] 11-27-2021 15:33-0400 Blood Pressure Location Chantal LEWIS [facility] 11-27-2021 15:33-0400 Diastolic blood pressure 78 mm[Hg] Chantal LEWIS [facility] 11-27-2021 15:33-0400 Heart rate 78 /min Chantal LEWIS [facility] 11-27-2021 15:33-0400 Systolic blood pressure 138 mm[Hg] Chantal LEWIS [facility] 09-26-2021 15:17-0400 Body height 179.1 cm Jordan Peters MD Work Phone: [facility] 09-26-2021 15:17-0400 Body temperature 97.81 [degF] Jordan Peters MD Work Phone: [facility] 09-26-2021 15:17-0400 Body weight 145.15 kg Jordan Peters MD Work Phone: [facility] 09-26-2021 15:17-0400 Diastolic blood pressure 106 mm[Hg] Jordan Peters MD Work Phone: [facility] 09-26-2021 15:17-0400 Heart rate 72 /min Jordan Peters MD Work Phone: [facility] 09-26-2021 15:17-0400 Respiratory rate 18 /min Jordan Peters MD Work Phone: [facility] 09-26-2021 15:17-0400 SaO2% (BldA) [Mass fraction] 97 % Jordan Peters MD Work Phone: [facility] 09-26-2021 15:17-0400 Systolic blood pressure 169 mm[Hg] Jordan Peters MD Work Phone: [facility] 04-25-2021 10:45-0500 Body height Pravin Olexa Other [facility] Other 04-25-2021 10:45-0500 Body mass index (BMI) [Ratio] 44.82 kg/m2 Pravin Olexa Other [facility] Other 04-25-2021 10:45-0500 Body weight 141.7 kg Pravin Olexa Other [facility] Other Encounters Encounter Date Encounter Type Care Provider Facility Start: 01-22-2025 ambulatory Chantal Ortiz ty:[facility] Start: 05-25-2024 End: 05-25-2024 [facility] flowsheet Ashli Ni DO Work Phone: [facility] Start: 05-25-2024 End: 05-25-2024 Bamboo flowsheet Ashli Ni DO Work Phone: [facility] Start: 05-25-2024 End: 05-25-2024 Office outpatient visit 15 minutes Ashli Ni DO Work Phone: [facility] Comment on above: Bronchitis (Primary Dx); Primary hypertension (CMS/HCC); Obstructive sleep apnea syndrome Start: 05-25-2024 End: 05-25-2024 ambulatory ASHLI NI Not Available Start: 05-13-2024 End: 05-13-2024 ambulatory Dimitry JASSO Facility:[facility] Start: 05-13-2024 End: 05-13-2024 Patient encounter procedure Dimitry Jasso MD Work Phone: Radiation Oncology Comment on above: 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) Start: 05-06-2024 End: 05-06-2024 ambulatory JORDAN PETERS Facility:[facility] Start: 05-06-2024 End: 05-06-2024 Subsequent hospital visit by physician Arrival Time Radiology Work Phone: [facility] Comment on above: Malignant neoplasm o f testicle, unspecified laterality, 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] Start: 05-04-2024 End: 05-04-2024 Refill Ashli Ni DO Work Phone: [facility] Comment on above: Acute right ankle pa in Start: 03-23-2024 End: 03-23-2024 Patient encounter procedure Chantal LEWIS [facility] Start: 03-23-2024 End: 03-23-2024 Refill Wander Joseph LPN Work Phone: [facility] Comment on above: Insomnia, unspecifie d type Start: 03-06-2024 End: 03-06-2024 ambulatory ASHLI NI Not Available Start: 03-02-2024 End: 03-02-2024 Telephone encounter Ashli Ni DO Work Phone: [facility] Start: 02-06-2024 End: 02-06-2024 Patient encounter procedure Jordan Peters MD Work Phone: Hematology/Oncology Start: 02-06-2024 End: 02-06-2024 ambulatory Jordan Peters MD Work Phone: Hematology/Oncology Comment on above: 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) Start: 02-05-2024 End: 02-05-2024 ambulatory JORDAN PETERS Facility:[facility] Start: 01-15-2024 End: 01-15-2024 ambulatory YEHUDA HOROWITZ Not Available Start: 10-28-2023 Telephone encounter Jordan betancourt MD Work Phone: Radiation Oncology Comment on above: Appointment Start: 10-22-2023 End: 10-22-2023 ambulatory ASHLI FLOR SPENCERCARLOS Facility:[facility] Start: 10-22-2023 End: 10-22-2023 Patient encounter procedure G Thierno Jasso MD Work Phone: Radiation Oncology Comment on above: 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) Start: 10-15-2023 End: 10-15-2023 ambulatory [facility] TJCARLOS Facility:[facility] Start: 10-15-2023 End: 10-15-2023 Subsequent hospital visit by physician Arrival Time Radiology Work Phone: Radiology [facility] Comment on above: Malignant neoplasm o f testicle, unspecified laterality, 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] Start: 10-08-2023 End: 10-08-2023 ambulatory [facility] Facility:[facility] Start: 10-07-2023 Social Work Cathi TEJEDAW Hematolo gy/Oncology Start: 08-13-2023 End: 08-13-2023 ambulatory [facility] Facility:[facility] Start: 08-13-2023 End: 08-13-2023 Patient encounter procedure Dimitry Jasso MD Work Phone: Radiation Oncology Comment on above: Malignant neoplasm o f testicle, unspecified laterality, unspecified whether descended or undescended (HCC) (Primary Dx) Start: 08-09-2023 Telephone encounter Jordan betancourt MD Work Phone: [facility] Comment on above: Future Appointment Start: 08-02-2023 Patient encounter procedure G Thierno Jasso MD Work Phone: [place] Start: 08-02-2023 Radiation Oncology Note G Ck Jasso MD Work Phone: Radiation Oncology Comment on above: Completion Note Start: 08-02-2023 End: 08-02-2023 ambulatory Dimitry THIERNO KATEMARANDA Facility:[facility] Start: 08-01-2023 End: 08-01-2023 ambulatory Dimitry THIERNO ENGMARANDA Facility:[facility] Start: 07-31-2023 End: 07-31-2023 ambulatory Dimitry LOVEMARANDA Facility:[facility] Start: 07-30-2023 End: 07-30-2023 ambulatory Dimitry LOVEMARANDA Facility:[facility] Start: 07-29-2023 End: 07-29-2023 ambulatory Dimitry LOVEMARANDA Facility:[facility] Start: 07-29-2023 End: 07-29-2023 Patient encounter procedure Dimitry Jasso MD Work Phone: Radiation Oncology Comment on above: Malignant neoplasm o f testicle, unspecified laterality, unspecified whether descended or undescended (HCC) (Primary Dx) Start: 07-26-2023 Telephone encounter Dimitry Jasso MD Work Phone: Radiation Oncology Comment on above: Medication Problem Start: 07-26-2023 End: 07-26-2023 ambulatory Dimitry THIERNO KATEMARANDA Facility:[facility] Start: 07-25-2023 End: 07-25-2023 Patient encounter procedure Lab/[facility] Work Phone: Radiation Oncology Comment on above: Malignant neoplasm o f testicle, unspecified laterality, unspecified whether descended or undescended (HCC) Refill Request Start: 07-25-2023 Telephone encounter Dimitry Jasso MD Work Phone: Radiation Oncology Comment on above: Medication Problem Start: 07-25-2023 End: 07-25-2023 ambulatory ASHLI NI JR Facility:[facility] Start: 07-24-2023 Telephone encounter Dimitry Jasso MD Work Phone: Radiation Oncology Start: 07-24-2023 End: 07-24-2023 ambulatory ASHLI NI JR Facility:[facility] Start: 07-23-2023 End: 07-23-2023 ambulatory ASHLI NI JR Facility:[facility] Start: 07-22-2023 End: 07-22-2023 Patient encounter procedure Dimitry Jasso MD Work Phone: Radiation Oncology Comment on above: Malignant neoplasm o f testicle, unspecified laterality, unspecified whether descended or undescended (HCC) (Primary Dx) Start: 07-22-2023 End: 07-22-2023 ambulatory Dimitry JASSO Facility:[facility] Start: 07-19-2023 End: 07-19-2023 ambulatory ASHLI NI JR Facility:[facility] Start: 07-18-2023 End: 07-18-2023 ambulatory ASHLI NI JR Facility:[facility] Start: 07-18-2023 End: 07-18-2023 Patient encounter procedure Lab/[facility] Work Phone: Radiation Oncology Comment on above: Malignant neoplasm o f testicle, unspecified laterality, unspecified whether descended or undescended (HCC) Start: 07-17-2023 End: 07-17-2023 ambulatory Dimitry JSASO Facility:[facility] Start: 07-16-2023 End: 07-16-2023 ambulatory ASHLI NI JR Facility:[facility] Start: 07-15-2023 End: 07-15-2023 ambulatory Dimitry JASSO Facility:[facility] Start: 07-05-2023 End: 07-08-2023 ambulatory Dimitry JASSO Facility:[facility] Start: 07-05-2023 End: 07-05-2023 Subsequent hospital visit by physician Dimitry Jasso MD Work Phone: Radiology [facility] Start: 06-27-2023 End: 06-27-2023 ambulatory ASHLI NI JR Facility:[facility] Start: 06-20-2023 Office outpatient vi sit 25 minutes Krys Allen [facility] Start: 06-20-2023 End: 06-20-2023 ambulatory DO Caity Ni Work Phone: [facility] Work Phone: Start: 06-20-2023 End: 06-20-2023 Patient encounter procedure DO Caity iN Work Phone: [facility] Work Phone: Start: 06-07-2023 ambulatory JORDAN PETERS Facility :[facility] Start: 06-07-2023 End: 06-07-2023 Subsequent hospital visit by physician Arrival Time Radiology Work Phone: Radiology [facility] Start: 05-23-2023 End: 05-23-2023 ambulatory Jordan Peters MD Work Phone: Hematology/Oncology Comment on above: 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) Start: 05-23-2023 End: 05-23-2023 Patient encounter procedure Jordan Peters MD Work Phone: [facility] Start: 05-17-2023 End: 05-17-2023 ambulatory ROSETTE GAN Facility:[facility] Start: 05-17-2023 End: 05-17-2023 Subsequent hospital visit by physician Arrival Time Radiology Work Phone: Radiology [facility] Comment on above: 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] Start: 02-19-2023 Telephone encounter Flavio [place] Hematology/Oncology Comment on above: Results Start: 02-14-2023 End: 02-14-2023 ambulatory Rosette Gan PA-C Work Phone: Hematology/Oncology Comment on above: 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); Essential hypertension Start: 02-14-2023 End: 02-14-2023 Patient encounter procedure Rosette RAMOS-C Work Phone: [facility] Start: 10-31-2022 End: 10-31-2022 [...] encounter procedure DO Caity Ni Work Phone: [facility] Start: 04-17-2022 End: 04-17-2022 ambulatory DO Caity Ray Last Work Phone: [facility] Work Phone: Start: 04-17-2022 Office outpatient vi sit 15 minutes [facility] Start: 04-09-2022 End: 04-09-2022 ambulatory Jordan Peters MD Work Phone: Hematology/Oncology Comment on above: 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) Start: 04-09-2022 End: 04-09-2022 Patient encounter procedure Jordan Peters MD Work Phone: [facility] Start: 04-03-2022 End: 04-03-2022 Subsequent hospital visit by physician Arrival Time Radiology Work Phone: Radiology [facility] Start: 01-30-2022 End: 01-30-2022 Patient encounter procedure DO Caity Ni Work Phone: [facility] Start: 01-02-2022 End: 01-02-2022 Patient encounter procedure DO Caity Ni Work Phone: [facility] Start: 12-26-2021 End: 12-26-2021 ambulatory Jordan Peters MD Work Phone: Hematology/Oncology Comment on above: 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) Start: 12-26-2021 End: 12-26-2021 Patient encounter procedure Jordan Peters MD Work Phone: [employer] Start: 12-20-2021 Telephone encounter Jordan betancourt MD Work Phone: Hematology/Oncology Comment on above: Lab Orders Start: 11-27-2021 End: 11-27-2021 Patient encounter procedure Chantal LEWIS [facility] Start: 09-26-2021 End: 09-26-2021 ambulatory Jordan Peters MD Work Phone: Hematology/Oncology Comment on above: 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) Start: 09-26-2021 End: 09-26-2021 Patient encounter procedure Jordan Peters MD Work Phone: [employer] Start: 09-19-2021 End: 09-19-2021 Subsequent hospital visit by physician Arrival Time Radiology Work Phone: Radiology [facility] CT Comment on above: Malignant neoplasm o f descended right testis (HCC) [C62.11] Start: 08-17-2021 End: 08-17-[address] Dimitry NI Facility:[facility] Start: 08-04-2021 Encounter for preprocedural cardiovascular examination DR CHANTAL LEWIS [facility] Start: 08-04-2021 Encounter for preprocedural laboratory examination DR CHANTAL LEWIS [facility] Start: 08-03-2021 End: 08-03-[address] CHANTAL LEWIS Facility:[facility] Start: 08-02-2021 End: 08-03-[address] CHANTAL LEWIS Facility:[facility] Start: 08-02-2021 End: 08-03-2021 Encounter for preprocedural cardiovascular examination DR CHANTAL LEWIS Facility:[facility] Start: 04-25-2021 End: 04-25-2021 ambulatory Pravin Cantu Other [facility] Other Start: 04-25-2021 Office outpatient vi sit 15 minutes Pravin Cantu [facility] Start: 03-21-2021 Office outpatient ne w 30 minutes Pravin Cantu [facility] Procedures Date Procedure Procedure Detail Performing Clinician Start: 05-06-2024 Ct abdomen & pelvis w/contrast material Jordan Peters MD Work Phone: Start: 05-06-2024 Ct thorax [...] Ct abdomen & pelvis w/contrast material Rosette Gan PA-C Work Phone: Start: 05-17-2023 Ct thorax w/contrast material Rosette Gan PA-C Work Phone: Start: 05-17-2023 Alpha-fetoprotein serum Rosette Gan PA-C Work Phone: Start: 10-31-2022 Ct abdomen [...] Detail Author Start: 03-06-2027 [facility] Start: 02-05-2027 [facility] Start: 05-17-2026 [facility] Start: 02-14-2026 DIABETES SCREEN DIABETES SCREEN [facility] Start: 07-09-2025 DIABETES SCREEN DIABETES SCREEN [facility] Start: 04-03-2025 DIABETES SCREEN DIABETES SCREEN [facility] Start: 12-26-2024 DIABETES SCREEN DIABETES SCREEN [facility] Start: 09-19-2024 DIABETES SCREEN DIABETES SCREEN [facility] Start: 08-13-2024 End: 11-12-2024 [id number] [Mass/volume] in Serum or Plasma ALPHA FETOPROTEIN Lab Routine Seminoma of descended right testis (HCC) Expected: 08/13/2024, Expires: 11/12/2024 [facility] Comment on above: Expected: 08/13/2024 , Expires: 11/12/2024 Start: 08-13-2024 End: 11-12-2024 CBC W Auto Differential panel - Blood COMPLETE BLOOD COUNT AND DIFFERENTIAL Lab Routine Seminoma of descended right testis (HCC) Expected: 08/13/2024, Expires: 11/12/2024 [facility] Comment on above: Expected: 08/13/2024 , Expires: 11/12/2024 Start: 08-13-2024 End: 11-12-2024 Choriogonadotropin.beta subunit [Units/volume] in Serum or Plasma BETA HCG QUANT TUMOR MARKER Lab Routine Seminoma of descended right testis (HCC) Expected: 08/13/2024, Expires: 11/12/2024 [facility] Comment on above: Expected: 08/13/2024 , Expires: 11/12/2024 Start: 08-13-2024 End: 11-12-2024 Lactate dehydrogenase [Enzymatic activity/volume] in Serum or Plasma LACTATE DEHYDROGENASE Lab Routine Seminoma of descended right testis (HCC) Expected: 08/13/2024, Expires: 11/12/2024 [facility] Work Phone: Comment on above: Expected: 08/13/2024 , Expires: 11/12/2024 Start: 08-13-2024 End: 08-13-2024 Patient encounter procedure 08/13/2024 9:15 AM EST Office Visit Radiation Oncology [address] [address] Dimitry Jasso MD [address] [place] [address] [place] [address] 3 months follow up Radiation Oncology Comment on above: 3 months follow up Start: 08-06-2024 End: 08-06-2024 Patient encounter procedure 08/06/2024 9:00 AM EST Office Visit [facility] [address] [address] labs [facility] Comment on above: labs Start: 05-25-2024 End: 05-25-2025 XR Chest 2 Views XR chest 2 views Imaging Routine Bronchitis Expected: 05/25/2024, Expires: 05/25/2025 [facility] Work Phone: Comment on above: Expected: 05/25/2024 , Expires: 05/25/2025 Start: 05-25-2024 End: 05-25-2024 Patient encounter procedure 05/25/2024 11:40 AM EST Office Visit [facility] [address] [place] [address] Ashli Ni DO [address] [place] [address] Arrived [facility] Comment on above: Arrived Start: 05-13-2024 End: 05-13-2024 Patient encounter procedure 05/13/2024 9:15 AM EST Office Visit Radiation Oncology [address] [place] [address] Dimitry Jasso MD [address] [place] [address] Followup Radiation Oncology Comment on above: Followup Start: 05-12-2024 End: 05-12-2024 Follow-up encounter 05/12/2024 3:45 PM EST Visit (SP) Office Hematology/Oncology [address] [address] Jordan Peters MD [address] [address] Followup Hematology/Oncology Comment on above: Followup Start: 05-12-2024 End: 05-12-2024 Patient encounter procedure 05/12/2024 3:30 PM EST Office Visit Radiation Oncology [address] [place] [address] Dimitry Jasso MD [address] [place] [address] Followup Radiation Oncology Comment on above: Followup Start: 05-06-2024 End: 11-26-2024 CT Abdomen and Pelvis W contrast IV CT ABD/PEL W IVCON Radiology Routine Malignant neoplasm of testicle, unspecified laterality, unspecified whether descended or undescended (HCC) Expected: 05/06/2024, Expires: 11/26/2024 [facility] Comment on above: Expected: 05/06/2024 , Expires: 11/26/2024 Start: 05-06-2024 End: 11-26-2024 CT Chest W contrast IV CT CHEST W IVCON Radiology Routine Malignant neoplasm of testicle, unspecified laterality, unspecified whether descended or undescended (HCC) Expected: 05/06/2024, Expires: 11/26/2024 [facility] Comment on above: Expected: 05/06/2024 , Expires: 11/26/2024 Start: 05-06-2024 End: 05-06-2024 Patient encounter procedure 05/06/2024 12:15 PM EST Appointment Radiology [facility] [address] [place] [address] CT [facility] [address] [facility] [address] Comment on above: CT CAP Start: 2024 Shingrix Vaccine (1 of 2) Shingrix Vaccine (1 of 2) [facility] Start: 03-06-2024 End: 03-06-2024 Patient encounter procedure 03/06/2024 9:20 AM EDT Office Visit [facility] [address] [place] [address] Ashli Ni DO [address] [place] [address] [facility] Start: 02-16-2024 Covid-19 Vaccine ( season) Covid-19 Vaccine ( season) [facility] Start: 02-16-2024 Covid-19 Vaccine ( season) Covid-19 Vaccine ( season) [facility] Start: 02-16-2024 Influenza vaccination [facility] Start: 02-06-2024 End: 02-06-2024 Follow-up encounter 02/06/2024 3:45 PM EDT Visit (SP) Office Hematology/Oncology [address] [place] [address] Jordan Peters MD [address] [place] [address] Followup Hematology/Oncology Comment on above: Followup Start: 02-06-2024 End: 02-06-2024 Patient encounter procedure 02/06/2024 3:30 PM EDT Office Visit [facility] [address] [place] [address] [place] [address] lab [facility] Comment on above: lab Start: 01-28-2024 End: 04-28-2024 [id number] [Mass/volume] in Serum or Plasma ALPHA FETOPROTEIN Lab Routine Malignant neoplasm of testicle, unspecified laterality, unspecified whether descended or undescended (HCC) Expected: 01/28/2024, Expires: 04/28/2024 [facility] Comment on above: Expected: 01/28/2024 , Expires: 04/28/2024 Start: 01-28-2024 End: 04-28-2024 CBC W Auto Differential panel - Blood COMPLETE BLOOD COUNT AND DIFFERENTIAL Lab Routine Malignant neoplasm of testicle, unspecified laterality, unspecified whether descended or undescended (HCC) Expected: 01/28/2024, Expires: 04/28/2024 [facility] Work Phone: Comment on above: Expected: 01/28/2024 , Expires: 04/28/2024 Start: 01-28-2024 End: 04-28-2024 Choriogonadotropin.beta subunit [Units/volume] in Serum or Plasma BETA HCG QUANT TUMOR MARKER Lab Routine Malignant neoplasm of testicle, unspecified laterality, unspecified whether descended or undescended (HCC) Expected: 01/28/2024, Expires: 04/28/2024 [facility] Comment on above: Expected: 01/28/2024 , Expires: 04/28/2024 Start: 01-28-2024 End: 04-28-2024 Comprehensive metabolic 2000 panel - Serum or Plasma COMPREHENSIVE METABOLIC PANEL Lab Routine Malignant neoplasm of testicle, unspecified laterality, unspecified whether descended or undescended (HCC) Expected: 01/28/2024, Expires: 04/28/2024 [facility] Comment on above: Expected: 01/28/2024 , Expires: 04/28/2024 Start: 01-28-2024 End: 04-28-2024 Lactate dehydrogenase [Enzymatic activity/volume] in Serum or Plasma LACTATE DEHYDROGENASE Lab Routine Malignant neoplasm of testicle, unspecified laterality, unspecified whether descended or undescended (HCC) Expected: 01/28/2024, Expires: 04/28/2024 [facility] Comment on above: Expected: 01/28/2024 , Expires: 04/28/2024 Start: 12-10-2023 End: 12-10-2023 Follow-up encounter 12/10/2023 2:00 PM EDT Visit (SP) Office Hematology/Oncology [address] [address] Jordan Peters MD [address] [place] [address] [place] [address] Followup Hematology/Oncology Comment on above: Followup Start: 12-03-2023 End: 12-03-2023 Patient encounter procedure 12/03/2023 11:30 AM EDT Appointment Radiology Pet [facility] [address] [place] [address] Comment on above: PET Start: 10-22-2023 End: 10-22-2023 Patient encounter procedure 10/22/2023 3:00 PM EDT Office Visit Radiation Oncology [address] [place] [address] Dimitry Jasso MD [address] [place] [address] PATIENT NEEDS PFA APPT SET UP, NO INSURANCE Radiation Oncology Comment on above: PATIENT NEEDS PFA APPT SET UP, NO INSURANCE Start: 10-12-2023 End: 01-11-2024 [id number] [Mass/volume] in Serum or Plasma ALPHA FETOPROTEIN BL Lab Routine Malignant neoplasm of testicle, unspecified laterality, unspecified whether descended or undescended (HCC) Expected: 10/12/2023, Expires: 01/11/2024 [facility] Work Phone: Comment on above: Expected: 10/12/2023 , Expires: 01/11/2024 Start: 10-12-2023 End: 01-11-2024 CBC W Auto Differential panel - Blood CBC + DIFF Lab Routine Malignant neoplasm of testicle, unspecified laterality, unspecified whether descended or undescended (HCC) Expected: 10/12/2023, Expires: 01/11/2024 [facility] Work Phone: Comment on above: Expected: 10/12/2023 , Expires: 01/11/2024 Start: 10-12-2023 End: 01-11-2024 Choriogonadotropin.beta subunit [Units/volume] in Serum or Plasma BETA HCG QUANT TUMOR MARKER Lab Routine Malignant neoplasm of testicle, unspecified laterality, unspecified whether descended or undescended (HCC) Expected: 10/12/2023, Expires: 01/11/2024 [facility] Work Phone: Comment on above: Expected: 10/12/2023 , Expires: 01/11/2024 Start: 10-12-2023 End: 01-11-2024 Lactate dehydrogenase [Enzymatic activity/volume] in Serum or Plasma LD LACTATE DEHYDRO Lab Routine Malignant neoplasm of testicle, unspecified laterality, unspecified whether descended or undescended (HCC) Expected: 10/12/2023, Expires: 01/11/2024 [facility] Work Phone: Comment on above: Expected: 10/12/2023 , Expires: 01/11/2024 Start: 10-12-2023 End: 09-11-2024 PET+CT Guidance for localization of tumor of Skull base to mid-thigh-- W 18F-FDG IV NM PET/CT SKULL-THIGH SUBSEQUENT Radiology Routine Malignant neoplasm of testicle, unspecified laterality, unspecified whether descended or undescended (HCC) Expected: 10/12/2023, Expires: 09/11/2024 [facility] Work Phone: Comment on above: Expected: 10/12/2023 , Expires: 09/11/2024 Start: 10-12-2023 End: 01-11-2024 Prostate specific Ag [Mass/volume] in Serum or Plasma PSA/PROSTSPECAG DIAG Lab Routine Malignant neoplasm of testicle, unspecified laterality, unspecified whether descended or undescended (HCC) Expected: 10/12/2023, Expires: 01/11/2024 [facility] Work Phone: Comment on above: Expected: 10/12/2023 , Expires: 01/11/2024 Start: 08-13-2023 End: 11-12-2023 CBC W Auto Differential panel - Blood CBC + DIFF Lab Routine Malignant neoplasm of testicle, unspecified laterality, unspecified whether descended or undescended (HCC) Expected: 08/13/2023, Expires: 11/12/2023 [facility] Work Phone: Comment on above: Expected: 08/13/2023 , Expires: 11/12/2023 Start: 06-17-2023 [facility] Screening Behavioral Health Screening [facility] Start: 06-17-2023 Depression Assessment Depression Ass essment [facility] Start: 05-16-2023 End: 07-16-2023 [id number] [Mass/volume] in Serum or Plasma ALPHA FETOPROTEIN BL Lab Routine Seminoma of descended right testis (HCC) Expected: 05/16/2023 (Approximate), Expires: 07/16/2023 [facility] Work Phone: Comment on above: Expected: 05/16/2023 (Approximate), Expires: 07/16/2023 Start: 05-16-2023 End: 07-16-2023 CBC W Auto Differential panel - Blood CBC + DIFF Lab Routine Seminoma of descended right testis (HCC) Expected: 05/16/2023 (Approximate), Expires: 07/16/2023 [facility] Work Phone: Comment on above: Expected: 05/16/2023 (Approximate), Expires: 07/16/2023 Start: 05-16-2023 End: 07-16-2023 Choriogonadotropin.beta subunit [Units/volume] in Serum or Plasma BETA HCG QUANT TUMOR MARKER Lab Routine Seminoma of descended right testis (HCC) Expected: 05/16/2023 (Approximate), Expires: 07/16/2023 [facility] Work Phone: Comment on above: Expected: 05/16/2023 (Approximate), Expires: 07/16/2023 Start: 05-16-2023 End: 07-16-2023 Comprehensive metabolic 2000 panel - Serum or Plasma COMP METABOLIC PANEL Lab Routine Seminoma of descended right testis (HCC) Expected: 05/16/2023 (Approximate), Expires: 07/16/2023 [facility] Work Phone: Comment on above: Expected: 05/16/2023 (Approximate), Expires: 07/16/2023 Start: 05-16-2023 End: 03-15-2024 Ct abdomen & pelvis w/contrast material CT ABD/PEL W IVCON Radiology Routine Seminoma of descended right testis (HCC) Expected: 05/16/2023 (Approximate), Expires: 03/15/2024 [facility] Work Phone: Comment on above: Expected: 05/16/2023 (Approximate), Expires: 03/15/2024 Start: 05-16-2023 End: 03-15-2024 CT CHEST W IVCON CT CHEST W IVCON Radiology Routine Seminoma of descended right testis (HCC) Expected: 05/16/2023 (Approximate), Expires: 03/15/2024 [facility] Work Phone: Comment on above: Expected: 05/16/2023 (Approximate), Expires: 03/15/2024 Start: 05-16-2023 End: 07-16-2023 Lactate dehydrogenase [Enzymatic activity/volume] in Serum or Plasma LD LACTATE DEHYDRO Lab Routine Seminoma of descended right testis (HCC) Expected: 05/16/2023 (Approximate), Expires: 07/16/2023 [facility] Work Phone: Comment on above: Expected: 05/16/2023 (Approximate), Expires: 07/16/2023 Start: 02-15-2023 Covid-19 Vaccine () Covid-19 Vaccine () [facility] Start: 02-15-2023 Influenza vaccination [facility] Start: 10-07-2022 End: 12-07-2022 [id number]-[id number] [Mass/volume] in Serum or Plasma ALPHA FETOPROTEIN BL Lab Routine Seminoma of descended right testis (HCC) Expected: 10/07/2022 (Approximate), Expires: 12/07/2022 [facility] Work Phone: Comment on above: Expected: 10/07/2022 (Approximate), Expires: 12/07/2022 Start: 10-07-2022 End: 12-07-2022 Basic metabolic 2000 panel - Serum or Plasma BASIC METABOLIC PNL Lab Routine Seminoma of descended right testis (HCC) Expected: 10/07/2022 (Approximate), Expires: 12/07/2022 [facility] Work Phone: Comment on above: Expected: 10/07/2022 (Approximate), Expires: 12/07/2022 Start: 10-07-2022 End: 12-07-2022 CBC W Auto Differential panel - Blood CBC + DIFF Lab Routine Seminoma of descended right testis (HCC) Expected: 10/07/2022 (Approximate), Expires: 12/07/2022 [facility] Work Phone: Comment on above: Expected: 10/07/2022 (Approximate), Expires: 12/07/2022 Start: 10-07-2022 End: 12-07-2022 Choriogonadotropin.beta subunit [Units/volume] in Serum or Plasma BETA HCG QUANT TUMOR MARKER Lab Routine Seminoma of descended right testis (HCC) Expected: 10/07/2022 (Approximate), Expires: 12/07/2022 [facility] Work Phone: Comment on above: Expected: 10/07/2022 (Approximate), Expires: 12/07/2022 Start: 10-07-2022 End: 12-07-2022 Lactate dehydrogenase [Enzymatic activity/volume] in Serum or Plasma LD LACTATE DEHYDRO Lab Routine Seminoma of descended right testis (HCC) Expected: 10/07/2022 (Approximate), Expires: 12/07/2022 [facility] Work Phone: Comment on above: Expected: 10/07/2022 (Approximate), Expires: 12/07/2022 Start: 09-26-2022 Adult depression screening assessment DEPRESSION SCREENING [facility] Start: 07-09-2022 End: 09-08-2022 Choriogonadotropin.beta subunit [Units/volume] in Serum or Plasma [facility] Work Phone: Comment on above: Expected: 07/09/2022 , Expires: 09/08/2022 Start: 06-17-2022 DEPRESSION ASSESSMENT DEPRESSION ASS ESSMENT [facility] Start: 03-28-2022 End: 05-28-2022 CBC W Auto Differential panel - Blood CBC + DIFF Lab Routine Expected: 03/28/2022 (Approximate), Expires: 05/28/2022 [facility] Work Phone: Comment on above: Expected: 03/28/2022 (Approximate), Expires: 05/28/2022 Start: 03-28-2022 End: 05-28-2022 Comprehensive metabolic 2000 panel - Serum or Plasma COMP METABOLIC PANEL Lab Routine Expected: 03/28/2022 (Approximate), Expires: 05/28/2022 [facility] Work Phone: Comment on above: Expected: 03/28/2022 (Approximate), Expires: 05/28/2022 Start: 03-28-2022 End: 05-28-2022 Lactate dehydrogenase [Enzymatic activity/volume] in Serum or Plasma LD LACTATE DEHYDRO Lab Routine Expected: 03/28/2022 (Approximate), Expires: 05/28/2022 [facility] Work Phone: Comment on above: Expected: 03/28/2022 (Approximate), Expires: 05/28/2022 Start: 02-15-2022 Influenza vaccination [facility] Start: 12-26-2021 End: 02-25-2022 CBC W Auto Differential panel - Blood CBC + DIFF Lab Routine Seminoma of descended right testis (HCC) Expected: 12/26/2021 (Approximate), Expires: 02/25/2022 [facility] Work Phone: Comment on above: Expected: 12/26/2021 (Approximate), Expires: 02/25/2022 Start: 12-26-2021 End: 02-25-2022 Comprehensive metabolic 2000 panel - Serum or Plasma COMP METABOLIC PANEL Lab Routine Seminoma of descended right testis (HCC) Expected: 12/26/2021 (Approximate), Expires: 02/25/2022 [facility] Work Phone: Comment on above: Expected: 12/26/2021 (Approximate), Expires: 02/25/2022 Start: 12-26-2021 End: 02-25-2022 Lactate dehydrogenase [Enzymatic activity/volume] in Serum or Plasma LD LACTATE DEHYDRO Lab Routine Seminoma of descended right testis (HCC) Expected: 12/26/2021 (Approximate), Expires: 02/25/2022 [facility] Work Phone: Comment on above: Expected: 12/26/2021 (Approximate), Expires: 02/25/2022 Start: 06-17-2021 DEPRESSION ASSESSMENT DEPRESSION ASS ESSMENT [facility] Start: 2019 COLOGUARD (FIT-DNA) COLOGUARD (FIT-D NA) [facility] Start: 2019 Colonoscopy COLONOSCOPY [facility] Start: 2019 COLORECTAL CANCER SCREENING COLORECTAL CANCER SCREENING [facility] Start: [address] COLONOGRAPHY [facility] Start: 2019 FECAL OCCULT BLOOD FECAL OCCULT BLOO D [facility] Start: 2019 Screening for malign ant neoplasm of colon [facility] Start: 2019 SIGMOIDOSCOPY [facility] Start: 2009 Lipid 1996 panel - S deepika or Plasma Lipid Screening [facility] Start: 2009 Lip[facility] Start: 2009 LIPID SCREEN LIPID SCREEN [facility] Start: 04-26-2000 Urine microalbumin profile DTaP,Tdap,Td Vaccine (1 - Tdap) [facility] Start: 1993 Hepatitis B Vaccine (1 of 3 - 19+ 3-dose series) Hepatitis B Vaccine (1 of 3 - 19+ 3-dose series) [facility] Start: 1993 Urine microalbumin profile DTAP,TDAP,TD (1 - Tdap) [facility] Start: 1992 Anxiety Screening Anxiety Screening [facility] Start: 1992 Depression Screening Depression Scre ening [facility] Start: 1992 HEPATITIS C SCREENING HEPATITIS C [facility] Start: 1992 Hepatitis C screening Hepatitis C [facility] Start: 1992 HIV SCREENING HIV SCREENING [facility] Start: 1992 HIV screening HIV Screening [facility] Start: 1979 COVID-19 VACCINE (1) COVID-19 VACCIN E (1) [facility] Start: 1974 COVID-19 VACCINE (#1) COVID-19 VACCI NE (#1) [facility] Start: 1974 HEPATITIS B (1 of 3 - 3-dose series) HEPATITIS B (1 of 3 - 3-dose series) [facility] Start: 1974 Hepatitis B Vaccine (1 of 3 - 3-dose series) Hepatitis B Vaccine (1 of 3 - 3-dose series) [facility] Start: 1974 Screening for malign ant neoplasm of colon [facility] End: 01-25-2023 Ct abdomen & pelvis w/contrast material CT ABD/PEL W IVCON Radiology Routine 1 Occurrences starting 12/26/2021 until 01/25/2023 [facility] Work Phone: Comment on above: 1 Occurrences starti ng 12/26/2021 until 01/25/2023 End: 08-08-2023 Ct abdomen & pelvis w/contrast material CT ABD/PEL W IVCON Radiology Routine 1 Occurrences starting 07/09/2022 until 08/08/2023 [facility] Work Phone: Comment on above: 1 Occurrences starti ng 07/09/2022 until 08/08/2023 End: 08-08-2023 CT CHEST W IVCON CT CHEST W IVCON Radiology Routine 1 Occurrences starting 07/09/2022 until 08/08/2023 [facility] Work Phone: Comment on above: 1 Occurrences starti ng 07/09/2022 until 08/08/2023 End: 01-25-2023 Ct thorax w/contrast material CT CHEST W IVCON Radiology Routine 1 Occurrences starting 12/26/2021 until 01/25/2023 [facility] Work Phone: Comment on above: 1 Occurrences starti ng 12/26/2021 until 01/25/2023 End: 06-21-[address] attenuation skull base mid-thigh NM PET/CT SKULL-THIGH INITIAL Radiology Routine 1 Occurrences starting 05/23/2023 until 06/21/2024 [facility] Work Phone: Comment on above: 1 Occurrences starti ng 05/23/2023 until 06/21/[address] [facility] Immunizations Immunization Date Immunization Notes Care Provider [facility] 04-25-2000 TD(adult) unspecifie d formulation; Translations: [Td(adult) unspecified formulation] Ashli Santamariacarlos ANGULO Work Phone: [facility] Payers Date Payer Category Payer Private Health Insurance CIGNA CIGNA PPO TPA [id number] 2024-Present [address] [place] [phone] PPO [id number] 2024 Private Health Insurance [id number] 2023 Self-pay [id number] Unknown [id number] 2019 [facility] Shield BCBS [id number] 2019 Unknown [employer] BLUE CARD PPO OOS [id number] 2019-Present [phone] [address] [place] [address] PPO [id number] 2019 Unknown [id number] 2019 Unknown [id number] 1974 Unknown [id number] [id number] 1974 Unknown [id number] [id number] 1974 Unknown [id number] [id number] 1974 Unknown [id number] [id number] 1974 Unknown [id number] [id number] 1974 Unknown [id number] [id number] 1974 Unknown [id number] 79.2.1259 1974 Unknown [id number] 79.2.1259 1974 Unknown [id number] [id number] 1959 Unknown [id number] Unknown [id number] [id number] Social History Date Type Detail Facility Start: 08-23-2021 End: 03-05-2023 Tobacco smoking status NHIS Never smoked tobacco [facility] Start: 08-23-2021 End: 03-05-2023 Tobacco use and exposure Smokeless tobacco non-user [facility] Start: 09-26-2021 End: 05-25-2024 Alcohol intake Ex-drinker (finding) [facility] Start: 1975 Sex Assigned At Not on file [facility] Start: 09-09-2021 End: 04-09-2022 Exposure to SARS-CoV-2 (event) Not sure [facility] Start: 11-05-2022 End: 05-25-2024 Sex Assigned At Male [facility] Other Start: 1975 Sex Assigned At Male F [facility] Start: 11-05-2022 End: 05-25-2024 History of Social function [facility] Adult Depression Screening Assessment 0 [facility] How often to you hav e a drink containing alcohol? Never [facility] Functional Status Date Assessment Result Facility 03-23-2024 Functional Status N/A [facility] 11-27-2021 Functional Status N/A [facility] Clinical Notes 03-21-2021 to 05-25-2024 Ashli Ni, - 05/25/2024 11:40 AM Dimitry Calderon MD - 05/13/2024 9:15 AM Janee Echeverria RN - 05/06/2024 12:15 PM Edin Gannon RT(R) - 05/06/2024 12:15 PM EST Note Date & Type Note Facility 05-25-2024 History of Present illness Narrative Images from the original note were not included. SUBJECTIVE: Jordan Bennett is a 49 y.o. male presents with chief complaint of Cough and Nasal Congestion Pt presents to the office for an acute illness that occurred a couple weeks ago. Has complaints of chest congestion, cough, nasal, congestion, and wheezing. Pt admits to feeling sob. Pt admits to coughing up small amounts. OTC dayquil and nitequil. Recently started mucinex the last couple days which gives relief for 1 hour. No covid test done prior to OV. Son in law had pneumonia, coworker had bronchitis. Review of Systems: Review of Systems Problem List: Patient Active Problem List Diagnosis Gastroesophageal reflux disease Hypertension (CMS/HCC) Insomnia Obstructive sleep apnea syndrome Asymptomatic microscopic hematuria Benign prostatic hyperplasia without urinary obstruction Epididymal mass Malignant neoplasm of testicle (CMS/HCC) Nocturia Seminoma of descended right testis (CMS/HCC) Testicular mass Past Medical History: Past Medical History: Diagnosis Date Equinus contracture of left ankle GERD (gastroesophageal reflux disease) Hypertension (CMS/HCC) Testicular cancer (CMS/HCC) Family History: Family History Problem Relation Name Age of Onset Heart disease Father Lung cancer Father Hypertension Father Stroke Father Cancer Father Allergies: Allergies Allergen Reactions Shellfish Allergy Unknown Shellfish-Derived Products Unknown Amoxicillin Rash Surgical History: Past Surgical History: Procedure Laterality Date ORCHIECTOMY Social History: Social Drivers of Health Tobacco Use: Low Risk (05/25/2024) Patient History Smoking Tobacco Use: Never Smokeless Tobacco Use: Never Passive Exposure: Not on file Alcohol Use: Not At Risk (03/05/2023) AUDIT-C Frequency of Alcohol Consumption: Never Average Number of Drinks: Patient does not drink Frequency of Binge Drinking: Never Financial Resource Strain: Not on file Food Insecurity: Not on file Transportation Needs: Not on file Physical Activity: Not on file Stress: Not on file Social Connections: Not on file Intimate Partner Violence: Not on file Depression: Not at risk (05/25/2024) PHQ-2 PHQ-2 Score: 0 Housing Stability: Not on file Health Literacy: Not on file OBJECTIVE: Visit Vitals Smoking Status Never Physical Exam Constitutional: Appearance: Normal appearance. HENT: Head: Normocephalic and atraumatic. Eyes: Extraocular Movements: Extraocular movements intact. Pupils: Pupils are equal, round, and reactive to light. Cardiovascular: Rate and Rhythm: Normal rate and regular rhythm. Heart sounds: No murmur heard. Pulmonary: Effort: Pulmonary effort is normal. Breath sounds: Wheezing and rhonchi present. No rales. Abdominal: General: Bowel sounds are normal. Palpations: Abdomen is soft. Tenderness: There is no abdominal tenderness. Musculoskeletal: General: Normal range of motion. Skin: General: Skin is warm. Neurological: General: No focal deficit present. Mental Status: He is alert and oriented to person, place, and time. Psychiatric: Mood and Affect: Mood normal. Behavior: Behavior normal. No results found for this or any previous visit (from the past 4 weeks). ASSESSMENT AND PLAN: Assessment/Plan Diagnoses and all orders for this visit: Primary hypertension ([facility]) Record Blood Pressures 2-4 times weekly and record. Return with readings at next appointment. Call with readings if sees significant changes Obstructive sleep apnea syndrome Patient advised to return if symptoms worsen and/or persist despite treatment. Bronchitis Patient advised to increase fluid intake, use otc guiafenesin, and humidify the air. May use tylenol as needed. F/u if not improving. To ER or Urgent Care if symptoms worsen or fever >101.5. Treatment options discussed. All questions answered. Patient voiced understanding. - XR chest 2 views; Future - benzonatate (Tessalon) 200 MG capsule; Take 1 capsule (200 mg) by mouth 3 (three) times a day as needed for cough for up to 7 days Do not crush or chew. - azithromycin (Zithromax) 250 MG tablet; 2 pills orally today, then 1 pill orally daily for 4 days - albuterol HFA 90 mcg/act inhaler; Inhale 2 puffs every 4 (four) hours if needed for wheezing - methylPREDNISolone (Medrol Dospak) 4 MG tablets; Follow schedule on package instructions Updated Medications: I have reviewed and reconciled the history and medication list with the patient today. Current Outpatient Medications: alfuzosin ER (Uroxatral) 10 MG 24 hr tablet, Take 10 mg by mouth Daily, Disp: , Rfl: aspirin (Vazalore) 81 MG capsule, Take 81 mg by mouth in the morning., Disp: , Rfl: lisinopril-hydroCHLOROthiazide 20-12.5 MG tablet, Take 2 tablets by mouth Daily, Disp: 180 tablet, Rfl: 3 nabumetone (Relafen) 750 MG tablet, TAKE 1 TABLET(750 MG) BY MOUTH IN THE MORNING AND IN THE EVENING WITH MEALS, Disp: 60 tablet, Rfl: 0 tamsulosin (Flomax) 0.4 MG 24 hr capsule, Take 0.4 mg by mouth in the morning., Disp: , Rfl: traZODone (Desyrel) 50 MG tablet, Take 1 tablet (50 mg) by mouth as needed at bedtime for sleep, Disp: 30 tablet, Rfl: 3 documented in this encounter [facility] 05-13-2024 History of Present illness Narrative Radiation Oncology - Follow Up Note PATIENT NAME: Jordan Bennett PATIENT DIAGNOSIS: Testicular cancer, right, 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 INTERVAL HISTORY: Patient doing well denies any new issues or problems. Has had some urinary obstructive issues, has started on Flomax. Denies any diarrhea or appetite change. No nausea. RADIOLOGY: CT chest 05/06/2024: No metastatic disease in the chest. CT abdomen and pelvis 05/06/2024:No metastatic disease in the abdomen or pelvis. PET/CT 10/15/2023: HEAD/NECK: * No FDG avid [...] Lymph 1.00 - 4.00 k/uL 0.88 (L) [place]% % 9.0 Abs [place] <0.87 k/uL 0.51 Eosin% % 1.8 Abs Eosin <0.46 k/uL 0.10 Baso% % 0.5 Abs Baso <0.11 k/uL 0.03 Immature Gran % % 0.5 IMMATURE GRANS (ABS) <0.10 k/uL 0.03 NRBC /100 WBC 0.0 Absolute nRBC <0.01 k/uL <0.01 (L): Data is abnormally low ALLERGIES Allergen Reactions Penicillins Rash Shellfish Containin* Other: See Comments MEDICATIONS: tamsulosin (FLOMAX) 0.4 mg Take 0.4 mg by mouth once daily. NABUMETONE ORAL Take 500 mg by mouth two times a day. aspirin 81 mg cap Take 81 mg by mouth once daily. lisinopril-hydroCHLOROthiazide (ZESTORETIC) 20-12.5 mg per tablet Take 2 tablets by mouth every afternoon. traZODone (DESYREL) 50 mg tablet Take 50 mg by mouth at bedtime as needed. Omeprazole 20 mg TbEC Take by mouth. multivit-min/ferrous fumarate (MULTI VITAMIN ORAL) Refill(s) 0 Zinc 50 mg tab Take by mouth. ondansetron (ZOFRAN) 8 mg tablet Take 1 tablet by mouth every 8 hours as needed for nausea/vomiting. (Patient not taking: Reported on 10/22/2023) REVIEW [...] other skin changes. PHYSICAL EXAM: VS: BP 125/79 Pulse 65 Temp (!) 21.1 C (69.9 F) Resp 18 Wt (!) 161.3 kg (355 lb 9.6 oz) SpO2 98% BMI 49.62 kg/m KPS: 100 General Appearance: Alert and [...] status post right radical orchiectomy, stage IB [id number] 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 Overall patient doing well. Recent scans without suspicious areas. Medically doing well without posttreatment issues. Plan for follow-up in 3 months with labs. Repeat scans in 6 months from now. Signed by: Dimitry Jasso MD cc: Ashli Christiane DO Last [address] [place] [address] [address] Peters documented in this encounter [facility] 05-06-2024 History of Present illness Narrative Radiology Service Progress Note DATE [...] PATIENT PRESENTS WITH AN IMPLANTABLE OR ATTACHED LAST MODEL MAKER: No RADIOLOGY DEPARTMENT: CT; Exam(s) Completed: Chest Abdomen Pelvis PERIPHERAL IV DATA: Site assessment: Clean,Dry and Intact, Site disposition Discontinued SIGNED BY: KARLI Cortes) May 06, 2024 12:36 PM documented in this encounter [facility] 05-06-2024 Note HNO ID: [id number] Author: EDIN PASTRANA RT (R) Service: ? Author Type: Technologist Type: Progress [...] PATIENT PRESENTS WITH AN IMPLANTABLE OR ATTACHED LAST MODEL MAKER: No RADIOLOGY DEPARTMENT: CT; Exam(s) Completed: Chest Abdomen Pelvis PERIPHERAL IV DATA: Site assessment: Clean,Dry and Intact, Site disposition Discontinued SIGNED BY: RT Sebastian(R) May 06, 2024 12:36 PM [facility] 05-06-2024 Note HNO ID: [id number] Author: JANEE QUEZADA RN Service: ? Author [...] DATE: May 06, 2024 TIME: 12:28 PM [facility] 03-23-2024 Hospital Discharge instructions Patient Education 03/23/2024 10:55:43 Testicular Self-Exam [...] provider. Document Revised: 03/18/2023 Document Reviewed: 03/18/2023 [employer] Patient Education 2023 [employer] 03/23/2024 10:55:39 Prostate Cancer Screening Prostate Cancer [...] treatment? Where to find more information The [employer]: www.cancer.org [employer]: www.auanet.org Contact a health care [...] provider. Document Revised: 11/27/2021 Document Reviewed: 11/27/2021 [employer] Patient Education 2023 [email or web address] Follow Up Care 02/10/2024 11:24:24 With:DEBBIE DELUCA, [place], URL Address: [facility] [address], [place] [address] [phone] When: Unknown Comments:10 mos (getting PSA done soon) [facility] 03-23-2024 Note Patient Education Oncology Prostate Cancer [...] Where to find more information ? The [employer]: www.cancer.org ? [employer] Association: www.auanet.org Contact a health care [...] of the rectum. (more content not included)... [facility] 03-23-2024 Telephone encounter Note lm for refill of trazodone [facility] [place] [facility] 03-23-2024 Miscellaneous Notes lm for refill of trazodone [facility] [place] documented in this encounter [facility] 03-02-2024 Telephone encounter Note Pt made yearly appointment on 03/06. He would like to get labwork done prior. Please call back to let him know if this is possible. Send orders to [facility] in [place]. [facility] 03-02-2024 Miscellaneous Notes Pt made yearly appointment on 03/06. He would like to get labwork done prior. Please call back to let him know if this is possible. Send orders to [facility] in [place]. documented in this encounter [facility] 02-05-2024 Note HNO ID: [id number] Author: JORDAN PETERS MD Service: ? Author [...] and symmetrical PATHOLOGY: 08/03/2021 Radical right orchiectomy ([facility]) Classic seminoma testicle: 3.2 x 3.0 [...] * Cutaneous/subcutaneous hyperme (more content not included)... [facility] 02-05-2024 History of Present illness Narrative PATIENT NAME: Jordan Bennett DATE: [...] and symmetrical PATHOLOGY: 08/03/2021 Radical right orchiectomy ([facility]) Classic seminoma testicle: 3.2 x 3.0 [...] representing a small adenoma. 08/17/2021 Chest CTA ([facility]) No evidence of acute or chronic [...] CC: Dr. Lewis documented in this encounter [facility] 10-29-2023 Telephone encounter Note Patient is called and scheduled for appointments spoke with his . [facility] 10-29-2023 Miscellaneous Notes Patient is called and scheduled for appointments spoke with his . PSS and Michelle: Please schedule as indicated per Dr. Urbina. BRM/NEO: Lab orders and CT orders pending your approval. Thanks Gavin Rea RN Jordan completed radiation therapy 08/02/23. He has [...] Gavin Rea RN documented in this encounter [facility] 10-28-2023 Telephone encounter Note PSS and Michelle: Please schedule as indicated per Dr. Urbina. BRM/NEO: Lab orders and CT orders pending your approval. Thanks Gavin Rea RN [facility] 10-28-2023 Telephone encounter Note Jordan completed radiation [...] Dr. Jasso please advise. Gavin Rea RN [facility] 10-22-2023 Note HNO ID: [id number] Author: Dimitry JASSO MD Service: ? 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 ASSESS (more content not included)... 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 Peters documented in this encounter [facility] 10-15-2023 History of Present illness Narrative RADIOLOGY SERVICE PROGRESS NOTE SERVICE [...] safety can be found using this link: [email or web address] [email or web address]-%20Diagnostic%20Nucl ear%20Medicine%20Procedures.pdf SIGNATURE: RT Beto(Christiane) PATIENT NAME: Jordan Bennett DATE: October 15, 2023 TIME: 2:07 PM PAGER/CONTACT #: documented in this encounter [facility] 10-15-2023 Note HNO ID: [id number] Author: SUDHIR CHURCH RT(R) Service: ? Author [...] 1310 PATIENT DISCHARGED TO: Ambulatory patient, left [place] department area. A Diagnostic radioactive procedure has taken place, with no further precautions necessary other than routine body substance precautions. More information regarding radiation safety can be found using this link: [email or web address] [email or web address]-% 20Diagnostic%20Nuclear%20Medicine %20Procedures.pdf SIGNATURE: RT Beto(R) PATIENT NAME: Jordan Bennett DATE: October 15, 2023 TIME: 2:07 PM PAGER/CONTACT #: [facility] 10-07-2023 Note HNO ID: [id number] Author: CATHI FAULKNER LSW Service: ? Author Type: Senior Scheduler Type: Progress Notes Filed: 10/07/2023 15:34 Note Text: SOCIAL WORK FOLLOW UP NOTE: [facility] Date of service:10/07/23 TOPICS ADDRESSED: [...] will follow up as appropriate. OBDULIO Carrington [facility] 10-07-2023 History of Present illness Narrative SOCIAL WORK FOLLOW UP NOTE: [facility] Date of service:10/07/23 TOPICS ADDRESSED: [...] appropriate. OBDULIO Carrington documented in this encounter [facility] 08-13-2023 Note HNO ID: [id number] Author: Dimitry JASSO MD Service: ? 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 Peters documented in this encounter [facility] 08-09-2023 Miscellaneous Notes Per radiation: Cancel Dr Delacruz appt for 08/08 - further arrangements will be made after patient sees Dr. Jasso again. 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 AREA TREATED: Paraaortic [...] Dr. Last Peters documented in this encounter [facility] 08-02-2023 Note HNO ID: [id number] Author: Dimitry JASSO MD Service: ? 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 AREA TREATED: Paraaortic [...] PM Electronically Signed cc: Dr. Last Peters [facility] 07-29-2023 Note HNO ID: [id number] Author: Dimitry JASSO MD Service: ? 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 COURSE: definitive Current [...] Saturday. Follow-up care discussed. 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 COURSE: definitive Current [...] Dimitry Jasso MD documented in this encounter [facility] 07-26-2023 Miscellaneous Notes I notified Sudhir that Eboni obtained an override from the insurance and they should be able to machine operator hop picker the original prescription from [facility]. Sudhir is very thankful for the extra work created in getting this prescription approved. Gavin Rea RN I called [facility] and obtained an override so the patient is able to fill the Ondansetron for 90 today. Sudhir, pt's spouse, left a message stating [employer] has not received prior authorization for the new Zofran prescription sent yesterday. I called and spoke to [facility] and was told they received the authorization this a.m. but patient's insurance will not allow a refill until 07/31/23 even with a new prescription and increased frequency instructions. [facility] Pharmacists/Dr. Kelly: Do you have any recommendations? Dr. Kelly to possibly prescribe compazine in the interim? Thanks Gavin Rea RN documented in this encounter [facility] 07-25-2023 Miscellaneous Notes Prior authorization approved, he will be tablets to get 90 tablets per month. Jt Mortensen PharmD, [facility]OP [facility]ulatory Pharm[facility] Prior Authorization Note Provider Intervention Required?: No- Pharmacy completed on your behalf. Rx Plan: Other: [facility]: ondansetron 8 mg tablets 90 per 30 days Cover My Meds Ortiz: [id number] Determination: Approved Prior Authorization/Case #: [id number] Prior Authorization Expiration: 07/24/2024 Time to PA Submission in CMM: 15 min Time to PA Determination in CMM: Same day Additional Information: For questions relating to this submission, please contact [facility] at [phone] Sudhir, pt's , called stating there is [...] Gavin Rea Rn documented in this encounter [facility] 07-25-2023 Nurse Note Jordan Bennett presents in office today for: Lab Draw only . Ordering Provider: Thierno Jasso M.D. Test (s) ordered: CBC Method for obtaining blood: Phlebotomy was performed, accessing left hand vein. Needle removed intact. Dressing secured. Patient denies discomfort, dizziness, light-headedness or weakness and left the department without assist. Gavin Rea LPN documented in this encounter [facility] 07-25-2023 Miscellaneous Notes Please sign for Dr Jasso pt. Thank you Radha Skinner RN documented in this encounter [facility] 07-24-2023 Miscellaneous Notes I left a message [...] Gavin Rea RN documented in this encounter [facility] 07-22-2023 Note HNO ID: [id number] Author: Dimitry JASSO MD Service: ? 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 COURSE: definitive Current [...] Continue radiation as outlined. 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 COURSE: definitive Current [...] Dimitry Jasso MD documented in this encounter [facility] 07-18-2023 Nurse Note Jordan Bennett presents in office today for: Lab Draw only . Ordering Provider: Thierno Jasso M.D. Test (s) ordered: CBC Method for obtaining blood: Phlebotomy was performed, accessing right hand vein. Needle removed intact. Dressing secured. Patient denies discomfort, dizziness, light-headedness or weakness and left the department without assist. Gavin Rea LPN documented in this encounter [facility] 07-15-2023 Note HNO ID: [id number] Author: Dimitry JASSO MD Service: ? 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 COURSE: definitive Current [...] Continue radiation as prescribed. Dimitry Jasso MD [facility] 07-05-2023 Note HNO ID: [id number] Author: Dimitry JASSO MD Service: ? Author Type: Physician Type: Progress Notes Filed: 07/15/2023 08:45 Note Text: JORDAN BENNETT [id number] 07/05/2023 [facility] Department of Radiation Oncology Treatment Planning Note [...] Electronically Signed Thierno Jasso M.D. :45 AM [facility] 07-05-2023 Note HNO ID: [id number] Author: Dimitry JASSO MD Service: ? Author Type: Physician Type: Progress Notes Filed: 07/05/2023 12:03 Note Text: JORDAN BENNETT [id number] 07/05/2023 [facility] SIMULATION NOTE DATE OF SIMULATION: 07/05/2023 THERAPIST: Earlene Nunn MACHINE: Agilence DIAGNOSIS: Malignant neoplasm of descended right [id number] AREA: ABDOMEN CONTRAST: None Consent in Epic: [...] Thierno Jasso M.D. / LISSA 2:03 PM [facility] 06-28-2023 Note HNO ID: [id number] Author: CATHI FAULKNER LSW Service: ? Author Type: Senior Scheduler Type: Progress Notes Filed: 06/28/2023 15:50 Note [...] will follow up as appropriate. OBDULIO Carrington [facility] 06-27-2023 Note HNO ID: [id number] Author: Dimitry JASSO MD Service: ? Author Type: Physician Type: Progress Notes Filed: 07/05/2023 08:51 Note Text: Radiation Oncology - New Patient/Consult Note PATIENT NAME: Jordan Bennett PATIENT REQUESTING PROVIDER: Dr. 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 HPI: Patient known [...] Abs Lymph 1.00 - 4.00 k/uL 2.37 [place]% % 6.9 Abs [place] <0.87 k/uL 0.53 Eosin% % 2.7 Abs [...] supraclavicular adenopathy. Ch (more content not included)... [facility] 06-27-2023 Note HNO ID: [id number] Author: JORDAN PETERS MD Service: ? Author [...] and symmetrical PATHOLOGY: 08/03/2021 Radical right orchiectomy ([facility]) Classic seminoma testicle: 3.2 x 3.0 [...] or enlarging n (more content not included)... [facility] 06-27-2023 Note Education (RADTSA) JORDAN BENNETT ([id number]) 1975 M Date Time Provider Department 06/27/23 GAVIN REA Reason for Visit: Patient Education [91] Visit Notes: >> Gavin Rea LPN [facility] Jun 27, 2023 3:27 PM Status: Signed Radiation Therapy - Patient Education Note PATIENT NAME: Jordan Bennett PATIENT June 27, 2023 [facility] FACILITY/LOCATION: [facility] READINESS TO LEARN Cognitive Ability: Alert and [...] need for social work, van service, and program associate. Was approved? No Signed by: Gavin Rea [...] Encounter Status:Closed by GAVIN REA on 06/27/23 [facility] 06-20-2023 Evaluation note Encounter Date Diagnosis [...] sleepiness, or poor response to treatment. . [facility] Other [id number] History of Present illness Narrative* Lisa Martinez [...] radiation safety can be found usingthis link: [email or web address]-% 20Diagnostic%20Nuclear%20Medicine%20Procedures.pdf SIGNATURE: Sudhir ChurchRT(R) PATIENT NAME: Jordan Bennett DATE: June 07, 2023 TIME: 1:49 PM PAGER/CONTACT #: [facility]23 NoteHNO ID: [id number] Author: Sudhir Church RT(R) Service: ? Author [...] 1338 PATIENT DISCHARGED TO: Ambulatory patient, left [place] department area. A Diagnostic radioactive procedure has taken place, with no further precautions necessary other than routine body substance precautions. More information regarding radiation safety can be found using this link: [email or web address] [email or web address]%20Nuclear%20Medicine%20Procedures.pdf SIGNATURE: Sudhir ChurchRT(R) PATIENT NAME: Jordan Bennett DATE: June 07, 2023 TIME: 1:49 PM PAGER/CONTACT #:[facility]12-22-2023 NoteHNO ID: [id number] Author: Lisa Martinez RN Service: ? Author [...] Bennett DATE: June 07, 2023 TIME: 1:40 [facility]12-07-2023 NoteHNO ID: [id number] Author: Jordan Peters MD Service: ? Author [...] and symmetrical PATHOLOGY: 08/03/2021 Radical right orchiectomy ([facility]) Classic seminoma testicle: 3.2 x 3.0 [...] has been interval developm (more content not included)...[facility]12-07-2023 History of Present illness Narrative* Jordan [...] and symmetrical PATHOLOGY: 08/03/2021 Radical right orchiectomy ([facility]) Classic seminoma testicle: 3.2 x 3.0 [...] representing a small adenoma. 08/17/2021 Chest CTA ([facility]) No evidence of acute or chronic [...] MD CC: Dr. Lewis [facility] History of Present illness Narrative* Lisa Martinez [...] BY: RT Beto(R) May 17, 2023 10:37 AM documented in this encounter[facility]12-[facility]-2023 NoteHNO ID: [id number] Author: Sudhir Church RT(R) Service: ? Author Type: Technologist Type: Progress Notes Filed: 05/17/2023 10:37 AM Note Text: Radiology Service Progress Note PATIENT NAME: Jrodan Bennett DATE OF SERVICE: May 17, 2023 [...] and Intact, Site disposition Discontinued SIGNED BY: KARLI Pérez) May 17, 2023 10:37 [facility]12-01-2023 NoteHNO ID: [id number] Author: Lisa Martinez RN Service: ? Author [...] Bennett DATE: May 17, 2023 TIME: 10:28 [facility]09-05-2023 Miscellaneous Notes* Telephone Encounter - Flavio Myers [...] call with negative results documented in this encounterReg[facility] History of Present illness Narrative* Rosette Gan PA-C - 02/14/2023 3:00 PM EDT PATIENT NAME: Jordan Bennett DATE: 02/14/2023 PRIMARY CARE PHYSICIAN: Ashli Ni, OTHER PHYSICIANS: Dr. Lewis, Dr. Jasso (Elements copied from Dr. Peters's [...] and symmetrical PATHOLOGY: 08/03/2021 Radical right orchiectomy ([facility]) Classic seminoma testicle: 3.2 x 3.0 [...] representing a small adenoma. 08/17/2021 Chest CTA ([facility]) No evidence of acute or chronic [...] PA-C CC: Dr. 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 MEDICATIONS: Current Outpatient Medications Medication Sig [...] 07/09/2022 250 PATHOLOGY: 08/03/2021 Radical right orchiectomy ([facility]) Classic seminoma testicle: 3.2 x 3.0 [...] representing a small adenoma. 08/17/2021 Chest CTA ([facility]) No evidence of acute or chronic [...] MD CC: Dr. Lewis documented in this encounterRegency [facility]11-01-2022 Evaluation note* Encounter Date Diagnosis Assessment Notes [...] sleepiness, or poor response to treatment. . 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 MEDICATIONS: Current Outpatient Medications Medication Sig lisinopril [...] and atrophy. PATHOLOGY: 08/03/2021 Radical right orchiectomy ([facility]) Classic seminoma testicle: 3.2 x 3.0 [...] representing a small adenoma. 08/17/2021 Chest CTA ([facility]) No evidence of acute or chronic [...] MD CC: Dr. 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 MEDICATIONS: Current Outpatient Medications Medication Sig lisinopril [...] and atrophy. PATHOLOGY: 08/03/2021 Radical right orchiectomy ([facility]) Classic seminoma testicle: 3.2 x 3.0 [...] representing a small adenoma. 08/17/2021 Chest CTA ([facility]) No evidence of acute or chronic [...] MD CC: Dr. Lewis documented in this encounterRegency [facility]06-13-2022 Hospital Discharge instructions Patient Education 11/27/2021 16:46:36 [...] 06/03/2006 Document Revised: 02/20/2019 Document Reviewed: 05/03/2017 [employer] Patient Education 2020 [employer] 11/27/2021 16:46:26 Testicular Cancer Testicular Cancer Testicular [...] children. Follow these instructions at home: Take gpgd-upm-svdoazt and prescription medicines only as told by [...] 04/26/2006 Document Revised: 09/24/2019 Document Reviewed: 08/30/2017 [employer] Patient Education 2020 [employer]. Follow Up Care 11/02/2021 10:22:34 With:DEBBIE DELUCA, Chantal Grande, URL Address: [facility] [address] [place] [address]- [phone] When: Unknown [facility] 04-12-2022 History of Present illness Narrative* Jordan Peters MD - 09/26/2021 8:40 AM EDT PATIENT NAME: Jordan Bennett DATE: 09/26/2021 PRIMARY CARE PHYSICIAN: Ashli R Kaftan, DO [...] and atrophy. PATHOLOGY: 08/03/2021 Radical right orchiectomy ([facility]) Classic seminoma testicle: 3.2 x 3.0 [...] representing a small adenoma. 08/17/2021 Chest CTA ([facility]) No evidence of acute or chronic [...] MD CC: Dr. Lewis documented in this encounterRegency [facility]04-05-2022 History of Present illness Narrative* Janee Raines [...] Site disposition Discontinued SIGNED BY: RT Beto(R) September 19, 2021 3:10 PM documented in this encounterRegency Hospital Company04-01-2022 Miscellaneous Notes* Telephone Encounter - September - 12/20/2021 9:58 AM EDT Patient coming in to see you on Saturday12/26/21 for follow up with labs. Please add lab orders. Thanks, Ellyn Nguyen MA documented in this encounterRegency Hospital [facility]03-03-2022 NotePROCEDURE: CTA CHEST WO W CON REASON [...] 3-D images were rendered on a separate [employer] workstation. Images were reviewed PACS. Dose reduction [...] Electronically authenticated by: EVELYN CUEVAS Date: 2021-08-17 16:31[facility]02-16-2022 NoteEXAMINATION: XR CHEST 2 V HISTORY: Pre-surgery [...] Electronically authenticated by: KRYS ASHER Date: 2021-08-02 16:17[facility]11-09-2021 Evaluation note* Encounter Date Diagnosis Assessment Notes Treatment Notes Treatment Clinical Notes Apr, Right shoulder tendonitis (ICD-10 - M77.8) Patient is progressing well at this time. Continue gentle motion and strengthening exercises. Formal therapy order provided. Call with questions/concerns. [facility] Other 10-05-2021 Evaluation note* Encounter Date Diagnosis [...] treatment, may consider MRI for further evaluation. 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 [facility]* Diagnosis 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 [facility] noteNo assessment information availableCincinnati [facility] Work Phone: Evaluation note* Diagnosis Seminoma [...] undescended (HCC) [facility]* Diagnosis Malignant neoplasm of testicle, unspecified laterality, unspecified whether descended or undescended (HCC)- Primary [facility]* Diagnosis Malignant neoplasm of testicle, unspecified laterality, unspecified whether descended or undescended (HCC) [facility]* Diagnosis Malignant neoplasm of testicle, unspecified laterality, unspecified whether descended or undescended (HCC)- Primary [facility]* Diagnosis Malignant neoplasm of testicle, unspecified laterality, unspecified whether descended or undescended (HCC)- Primary [facility]* Diagnosis Malignant neoplasm of testicle, unspecified laterality, unspecified whether descended or undescended (HCC)- Primary [facility]* Diagnosis 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 [facility] Diagnosis 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 documented in this [facility] Diagnosis Malignant neoplasm of testicle, unspecified laterality, unspecified whether descended or undescended (HCC) [facility] Diagnosis Seminoma of descended right testis (HCC) [facility] Diagnosis Seminoma of descended right testis (HCC) [facility]* Diagnosis 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) Malignant neoplasm of other and unspecified testis Seminoma of descended right testis (HCC) documented in this encounter [facility] note* Diagnosis Insomnia, unspecified type [facility] Diagnosis Malignant neoplasm of testicle, unspecified laterality, unspecified whether descended or undescended (HCC) [facility] Diagnosis Acute right ankle pain [facility] Diagnosis 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 [facility]* Diagnosis Bronchitis- Primary Bronchitis, not specified as acute or chronic Primary hypertension (CMS/HCC) Unspecified essential hypertension Obstructive sleep apnea syndrome Obstructive sleep apnea (adult) (pediatric) [facility] N[facility]ative - Reported* Type Description Date Medical History hypertension Medical History sleep apnea [employer] Other Progress note No data available for this section [facility] reason for referral (narrative)* Diagnostic Procedure Only (Routine) - Open Specialty Diagnoses / Procedures Referred By Contac t Referred To Contact MOLECULAR & FUNCTIONAL IMAGING Diagnoses 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) Procedures NM PET/CT SKULL-THIGH INITIAL PET IMAGING CT ATTENUATION SKULL BASE MID-THIGH Jordan Peters MD [address] [place] [address] [place] [address] Molecular & Functional Imaging [address] [place] [address] Referral ID Status Reason Start Date Expiration Date V isits Requested Visits Authorized [id number] Open Auto-Generate d Referral 05/23/2023 06/21/2024 1 1 [facility] for referral (narrative)* Diagnostic Procedure Only (Routine) - Pending Review Specialty Diagnoses / Procedures [facility] To Contact MOLECULAR & FUNCTIONAL IMAGING Diagnoses Malignant neoplasm of testicle, unspecified laterality, unspecified whether descended or undescended (HCC) Procedures NM PET/CT SKULL-THIGH SUBSEQUENT PET IMAGING CT ATTENUATION SKULL BASE MID-THIGH Dimitry Jasso MD [address] [address] Molecular & Functional Imaging [address] [place] [address] Referral ID Status Reason Start Date Expiration Date Visits Requested Visits Authorized [id number] Pending Review Auto-Generat ed Referral 10/12/2023 09/11/2024 1 1 [facility] for referral (narrative)* Diagnostic Procedure Only (Routine) - New Request Specialty Diagnoses / Procedures [facility] Referred To Contact MOLECULAR & FUNCTIONAL IMAGING Diagnoses Malignant neoplasm of testicle, unspecified laterality, unspecified whether descended or undescended (HCC) Procedures NM PET/CT SKULL-THIGH SUBSEQUENT PET IMAGING CT ATTENUATION SKULL BASE MID-THIGH Dimitry Jasso MD [address] [place] [address] Molecular & Functional Imaging [address] [place] [address] Referral ID Status Reason Start Date Expiration Date Visits Requested Visits Authorized [id number] New Request Auto-Generat ed Referral 10/12/2023 09/11/2024 1 1 [facility] Diagnostic Procedure Only (Routine) - Closed Specialty Diagnoses / Procedures Referred By Horacio t Referred To Contact MOLECULAR & FUNCTIONAL IMAGING Diagnoses 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) Procedures NM PET/CT SKULL-THIGH INITIAL PET IMAGING CT ATTENUATION SKULL BASE MID-THIGH Jordan Peters MD [address] [place] [address] [place] [address] Molecular & Functional Imaging [address] [place] [address] Referral ID Status Reason Start Date Expiration Date V isits Requested Visits Authorized [id number] Closed Auto-Generate d Referral 06/07/2023 06/16/2023 1 1 [facility] Summary Purpose Family History No Family History Records FoundNo Family History Records FoundNo Family History Records Found No data available for this section No Family History Records FoundNo Family History Records FoundNo Family History Records Found Advance Directives No Advanced Directives Records Found Advance Directive Response Recorded Date/ Time Advance Directives No May 12:55pm Advance Directive Response Recorded Date/ Time Advance Directives No May 11:55am Reason for Referral Specialty Diagnoses / Procedures Referred By Horacio t Referred To Contact CT IMAGING Diagnoses Seminoma of descended right testis (HCC) Procedures CT CHEST W IVCON DIAGNOSTIC COMPUTED TOMOGRAPHY THORAX W/CONTRAST Rosette Gan PA-C [address] [place] [address] [place] [address] [place] [address] Referral ID Status Reason Start Date Expiration Date Visits Requested Visits Authorized [id number] Pending Review Auto-Generat ed Referral 3 03/15/2024 1 1 Specialty Diagnoses / Procedures Referred By Horacio t Referred To Contact CT IMAGING Diagnoses Seminoma of descended right testis (HCC) Procedures CT ABD/PEL W IVCON CT ABD & PELVIS W/CONTRAST Rosette Gan PA-C [facility] [place] [address] [place] [address] Referral ID Status Reason Start Date Expiration Date Visits Requested Visits Authorized [id number] Pending Review Auto-Generat ed Referral 03/15/2024 1 1 Specialty Diagnoses / Procedures Referred By Contac t Referred To Contact CT IMAGING Diagnoses 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) Procedures CT CHEST W IVCON DIAGNOSTIC COMPUTED TOMOGRAPHY THORAX W/CONTRAST Jordan Peters MD [address] [place] [address] [place] [address] Ct Imaging Referral ID Status Reason Start Date Expiration Date Visits Requested Visits Authorized [id number] Pending Review Auto-Generat ed Referral 12/26/2021 01/25/2023 1 1 Specialty Diagnoses / Procedures Referred By Contac t Referred To Contact CT IMAGING Diagnoses 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) Procedures CT ABD/PEL W IVCON CT ABD & PELVIS W/CONTRAST Jordan Peters MD [address] [place] [address] [place] [address] Ct Imaging Referral ID Status Reason Start Date Expiration Date Visits Requested Visits Authorized [id number] Pending Review Auto-Generat ed Referral 12/26/2021 01/25/2023 [...] section and content) DATE CREATED AUTHOR 07/28/2021 [facility] DATE CREATED AUTHOR AUTHOR'S ORGANIZ ATION 08/21/2021 [facility] DATE CREATED AUTHOR AUTHOR'S ORGANIZ ATION 07/26/2023 [facility] DATE CREATED AUTHOR AUTHOR'S ORGANIZ ATION 04/10/2024 [facility] DATE CREATED AUTHOR AUTHOR'S ORGANIZ ATION 05/15/2024 [facility] DATE CREATED AUTHOR AUTHOR'S ORGANIZ ATION 05/28/2024 [facility] EPIC Source Comments (unrecognize d section and content) In the event this informatio n is protected by the Federal Confidentiality of Alcohol and Drug Abuse Patient Records regulations: The Federal rules restrict any use of the information to criminally investigate or prosecute any alcohol or drug abuse patient.[facility] the event this information is protected by the Federal Confidentiality of Alcohol and Drug Abuse Patient Records regulations: The Federal rules restrict any use of the information to criminally investigate or prosecute any alcohol or drug abuse patient.[facility] Company[facility] the event this information is protected by the Federal Confidentiality of Alcohol and Drug Abuse Patient Records regulations: The Federal rules restrict any use of the information to criminally investigate or prosecute any alcohol or drug abuse patient.[facility] the event this information is protected by the Federal Confidentiality of Alcohol and Drug Abuse Patient Records regulations: The Federal rules restrict any use of the information to criminally investigate or prosecute any alcohol or drug abuse patient.[facility] Company[facility] the event this information is protected by the Federal Confidentiality of Alcohol and Drug Abuse Patient Records regulations: The Federal rules restrict any use of the information to criminally investigate or prosecute any alcohol or drug abuse patient.[facility] Company[facility] the event this information is protected by the Federal Confidentiality of Alcohol and Drug Abuse Patient Records regulations: The Federal rules restrict any use of the information to criminally investigate or prosecute any alcohol or drug abuse patient.[facility] Company[facility] the event this information is protected by the Federal Confidentiality of Alcohol and Drug Abuse Patient Records regulations: The Federal rules restrict any use of the information to criminally investigate or prosecute any alcohol or drug abuse patient.[facility] Company[facility] the event this information is protected by the Federal Confidentiality of Alcohol and Drug Abuse Patient Records regulations: The Federal rules restrict any use of the information to criminally investigate or prosecute any alcohol or drug abuse patient.[facility] Company[facility] the event this information is protected by the Federal Confidentiality of Alcohol and Drug Abuse Patient Records regulations: The Federal rules restrict any use of the information to criminally investigate or prosecute any alcohol or drug abuse patient.[facility] Company[facility] the event this information is protected by the Federal Confidentiality of Alcohol and Drug Abuse Patient Records regulations: The Federal rules restrict any use of the information to criminally investigate or prosecute any alcohol or drug abuse patient.[facility] Company[facility] the event this information is protected by the Federal Confidentiality of Alcohol and Drug Abuse Patient Records regulations: The Federal rules restrict any use of the information to criminally investigate or prosecute any alcohol or drug abuse patient.[facility] Company[facility] the event this information is protected by the Federal Confidentiality of Alcohol and Drug Abuse Patient Records regulations: The Federal rules restrict any use of the information to criminally investigate or prosecute any alcohol or drug abuse patient.[facility] Company[facility] the event this information is protected by the Federal Confidentiality of Alcohol and Drug Abuse Patient Records regulations: The Federal rules restrict any use of the information to criminally investigate or prosecute any alcohol or drug abuse patient.[facility] Company[facility] the event this information is protected by the Federal Confidentiality of Alcohol and Drug Abuse Patient Records regulations: The Federal rules restrict any use of the information to criminally investigate or prosecute any alcohol or drug abuse patient.[facility] Company[facility] the event this information is protected by the Federal Confidentiality of Alcohol and Drug Abuse Patient Records regulations: The Federal rules restrict any use of the information to criminally investigate or prosecute any alcohol or drug abuse patient.[facility] Company[facility] the event this information is protected by the Federal Confidentiality of Alcohol and Drug Abuse Patient Records regulations: The Federal rules restrict any use of the information to criminally investigate or prosecute any alcohol or drug abuse patient.[facility] Company[facility] the event this information is protected by the Federal Confidentiality of Alcohol and Drug Abuse Patient Records regulations: The Federal rules restrict any use of the information to criminally investigate or prosecute any alcohol or drug abuse patient.[facility] Company[facility] the event this information is protected by the Federal Confidentiality of Alcohol and Drug Abuse Patient Records regulations: The Federal rules restrict any use of the information to criminally investigate or prosecute any alcohol or drug abuse patient.[facility] Company[facility] the event this information is protected by the Federal Confidentiality of Alcohol and Drug Abuse Patient Records regulations: The Federal rules restrict any use of the information to criminally investigate or prosecute any alcohol or drug abuse patient.[facility] Company[facility] the event this information is protected by the Federal Confidentiality of Alcohol and Drug Abuse Patient Records regulations: The Federal rules restrict any use of the information to criminally investigate or prosecute any alcohol or drug abuse patient.[facility] Company[facility] the event this information is protected by the Federal Confidentiality of Alcohol and Drug Abuse Patient Records regulations: The Federal rules restrict any use of the information to criminally investigate or prosecute any alcohol or drug abuse patient.[facility] Company[facility] the event this information is protected by the Federal Confidentiality of Alcohol and Drug Abuse Patient Records regulations: The Federal rules restrict any use of the information to criminally investigate or prosecute any alcohol or drug abuse patient.[facility] Company[facility] the event this information is protected by the Federal Confidentiality of Alcohol and Drug Abuse Patient Records regulations: The Federal rules restrict any use of the information to criminally investigate or prosecute any alcohol or drug abuse patient.[facility] Company[facility] the event this information is protected by the Federal Confidentiality of Alcohol and Drug Abuse Patient Records regulations: The Federal rules restrict any use of the information to criminally investigate or prosecute any alcohol or drug abuse patient.[facility] Company[facility] the event this information is protected by the Federal Confidentiality of Alcohol and Drug Abuse Patient Records regulations: The Federal rules restrict any use of the information to criminally investigate or prosecute any alcohol or drug abuse patient.[facility] Company[facility] the event this information is protected by the Federal Confidentiality of Alcohol and Drug Abuse Patient Records regulations: The Federal rules restrict any use of the information to criminally investigate or prosecute any alcohol or drug abuse patient.[facility] Company[facility] the event this information is protected by the Federal Confidentiality of Alcohol and Drug Abuse Patient Records regulations: The Federal rules restrict any use of the information to criminally investigate or prosecute any alcohol or drug abuse patient.[facility] CompanyIn the event this information is protected by the Federal Confidentiality of Alcohol and Drug Abuse Patient Records regulations: The Federal rules restrict any use of the information to criminally investigate or prosecute any alcohol or drug abuse patient.[facility] CompanyIn the event this information is protected by the Federal Confidentiality of Alcohol and Drug Abuse Patient Records regulations: The Federal rules restrict any use of the information to criminally investigate or prosecute any alcohol or drug abuse patient.[facility] CompanyIn the event this information is protected by the Federal Confidentiality of Alcohol and Drug Abuse Patient Records regulations: The Federal rules restrict any use of the information to criminally investigate or prosecute any alcohol or drug abuse patient.[facility] CompanyIn the event this information is protected by the Federal Confidentiality of Alcohol and Drug Abuse Patient Records regulations: The Federal rules restrict any use of the information to criminally investigate or prosecute any alcohol or drug abuse patient.[facility] CompanyIn the event this information is protected by the Federal Confidentiality of Alcohol and Drug Abuse Patient Records regulations: The Federal rules restrict any use of the information to criminally investigate or prosecute any alcohol or drug abuse patient.[facility] Reason for Visit (unrecogniz ed section and content) Reason Comments Radiology NM Specialty Diagnoses / Procedures Referred By Horacio vegas Referred To Contact MOLECULAR & FUNCTIONAL IMAGING Diagnoses 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) Procedures NM PET/CT SKULL-THIGH INITIAL PET IMAGING CT ATTENUATION SKULL BASE MID-THIGH Jordan Peters MD [address] [place] [address] [place] [address] Molecular & Functional Imaging [address] [place] [address] Referral ID Status Reason Start Date Expiration Date V isits Requested Visits Authorized [id number] Closed Auto-Generate d Referral 06/07/2023 06/16/2023 1 1 Reason Comments Testicular Cancer Specialty Diagnoses / Procedures [facility] To [facility] Diagnoses office visit Procedures office visit [place] [facility] [place] [address] Referral ID Status Reason Start Date Expiration Date Visits Requested Visits Authorized [id number] Authorized Financial Clearance Required - Self Pay [...] Appointment Specialty Diagnoses / Procedures [facility] Referred To Contact [facility] Diagnoses Seminoma of descended right testis Procedures OFFICE CONSULTATION NEW/ESTAB PATIENT 15 MIN Jordan Peters MD [address] [place] [address] [place] [address] Referral ID Status Reason Start Date Expiration Date Visits Requested Visits Authorized [id number] Authorized Financial Clearance Required - Self Pay Patient Cleared - Qualified HCAP/501/FA Referred for [id number] 02/05/2024 05/05/2024 99 99 Specialty Diagnoses / Procedures Referred By Contac t Referred To Contact [facility] Diagnoses office visit Procedures office [place] [address] Referral ID Status Reason Start Date Expiration Date V isits Requested Visits Authorized [id number] Closed Financial Clearance Required - Self Pay Patient Cleared - Qualified HCAP/501/FA 10/08/2023 01/06/2024 99 99 Specialty Diagnoses / Procedures Referred By Contac t Referred To Contact Radiation Oncology / RADIATION ONCOLOGY Diagnoses Malignant neoplasm of descended right testis SIM treating Paraortics kate 3D 15FX PLUS SIM Procedures 3-D RADIOTHERAPY PLAN DOSE-VOLUME HISTOGRAMS SIMULATION [place] 3D 15FX PLUS SIM Dimitry Jasso MD [address] [place] [address] [place] [address] Dimitry Jasso MD [address] [place] [address] [place] [address] Referral ID Status Reason Start Date Expiration Date Visits Re quested Visits Authorized [id number] Closed 07/05/2023 10/02/2023 [address] Specialty Diagnoses / Procedures Referred By Contac t Referred To Contact CT IMAGING Diagnoses Seminoma of descended right testis (HCC) Procedures CT CHEST W IVCON DIAGNOSTIC COMPUTED TOMOGRAPHY THORAX W/CONTRAST Rosette Gan, CORA [address] [place] [address] Ct Imaging [id number] Referral ID Status Reason Start Date Expiration Date V isits Requested Visits Authorized [id number] Closed Auto-Generate d Referral 04/25/2023 06/16/2023 1 1 Specialty Diagnoses / Procedures Referred By Contac t Referred To Contact CT IMAGING Diagnoses 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) Procedures CT CHEST W IVCON DIAGNOSTIC COMPUTED TOMOGRAPHY THORAX W/CONTRAST Jordan Peters MD [address] [place] [address] [place] [address] Ct Imaging [id number] Referral ID Status Reason Start Date Expiration Date V isits Requested Visits Authorized [id number] Closed Auto-Generate d Referral 09/18/2022 06/16/2023 1 1 Referral ID Status Reason Start Date Expiration Date V isits Requested Visits Authorized [id number] Closed Auto-Generate d Referral 03/12/2022 06/16/2022 1 1 Referral ID Status Reason Start Date Expiration Date V isits Requested Visits Authorized [id number] Closed Auto-Generate d Referral 09/05/2021 06/16/2022 1 1 Reason Onset Date Comments Med Refill 03/23/2024 Reason Comments Radiology NM Specialty Diagnoses / Procedures Referred By Contac t Referred To Contact CT IMAGING Diagnoses Malignant neoplasm of testicle, unspecified laterality, unspecified whether descended or undescended (HCC) Procedures CT CHEST W IVCON DIAGNOSTIC COMPUTED TOMOGRAPHY THORAX W/CONTRAST Jordan Peters MD [address] [place] [address] [place] [address] Ct Imaging [id number] Referral ID Status Reason Start Date Expiration Date V isits Requested Visits Authorized [id number] Closed Auto-Generate d Referral 04/23/2024 06/16/2024 1 1 Reason Comments Med Refill Reason Comments Cough Nasal Congestion Care Teams (unrecognized sec tion and content) Team Status: Active Member Role Status Dates Caity Ni DO Primary Care Provider Active Team Status: Inactive Member Role Status Dates Caity Ni DO Primary Care Provider Active Krys Allen MD Attending Provider Active Swine Nutritionist Relationship Specialty Start Date End Date Ashli Ni Jr. [address] [place] [phone] PCP - General Family Practice 08/09/21 Chantal Lewis MD [address] [place] [address] Referring Urology 08/09/21 Swine Nutritionist Relationship Specialty Start Date End Date Ashli Ni Jr. [address] [place] [phone] PCP - General Family Practice 08/09/21 Chantal Lewis MD [address] [place] [address] Referring Urology 08/09/21 Team Status: Inactive Member Role Status Hilario Ni , Primary Care Provider, Referring Provider Active Krys Allen MD Attending Provider Active Swine Nutritionist Relationship Specialty Start Date End Date Ashli Ni Jr. [address] [place] [address] PCP - General Family Medicine 08/09/21 Chantal Lewis MD [address] [place] [address] Referring Urology 08/09/21 Swine Nutritionist Relationship Specialty Start Date End Date Ashli Ni Jr. [address] [place] [address] PCP - General Family Medicine 08/09/21 Chantal Lewis MD [address] [place] [address] Referring Urology 08/09/21 Swine Nutritionist Relationship Specialty Start Date End Date Ashli Ni Jr. [address] [place] [phone] PCP - General Family Medicine 08/09/21 Chantal Lewis MD [address] [place] [address] Referring Urology 08/09/21 Swine Nutritionist Relationship Specialty Start Date End Date Ashli Ni Jr. [address] [place] [phone] PCP - General Family Medicine 08/09/21 Chantal Lewis MD [address] [place] [address] Referring Urology 08/09/21 Swine Nutritionist Relationship Specialty Start Date End Date Ashli Ni Jr., DO [address] [place] [address] PCP - General Family Medicine 08/09/21 Chantal Lewis MD [address] [place] [address] Referring Urology 08/09/21 Swine Nutritionist Relationship Specialty Start Date End Date Ashli Ni Jr., DO [address] [place] [phone] PCP - General Family Medicine 08/09/21 Chantal Lewis MD [address] [place] [address] Referring Urology 08/09/21 Cathi Faulkner LSW Senior Scheduler 06/28/23 Swine Nutritionist Relationship Specialty Start Date End Date Ashli Ni Jr., DO [address] [place] [address] PCP - General Family Medicine 08/09/21 Chantal Lewis MD [address] [place] [address] Referring Urology 08/09/21 Cathi Faulkner LSW Senior Scheduler 06/28/23 Swine Nutritionist Relationship Specialty Start Date End Date Ashli Ni Jr., DO [address] [place] [id number] PCP - General Family Medicine 08/09/21 Chantal Lewis MD [address] [place] [address] Referring Urology 08/09/21 Cathi Faulkner LSW Senior Scheduler 06/28/23 Swine Nutritionist Relationship Specialty Start Date End Date Ashli Ni Jr., DO [address] [place] [address] PCP - General Family Medicine 08/09/21 Chantal Lewis MD [address] [place] [place] [address] Referring Urology 08/09/21 Cathi Faulkner LSW Senior Scheduler 06/28/23 Swine Nutritionist Relationship Specialty Start Date End Date Ashli Ni Jr., DO [address] [place] [address] PCP - General Family Medicine 08/09/21 Chantal Lewis MD [address] [place] [address] Referring Urology 08/09/21 Cathi Faulkner LSW Senior Scheduler 06/28/23 Swine Nutritionist Relationship Specialty Start Date End Date Ahsli Ni Jr., DO [address] [place] [phone] PCP - General Family Medicine 08/09/21 Chantal Lewis MD [address] [place] [address] Referring Urology 08/09/21 Cathi Faulkner, TELEPHONE BETTING CLERK Senior Scheduler 06/28/23 Swine Nutritionist Relationship Specialty Start Date End Date Ashli Ni , DO [address] [place] [phone] PCP - General Family Medicine 08/09/21 Chantal Lewis MD [address] [place] [address] Referring Urology 08/09/21 Cathi Faulkner, TELEPHONE BETTING CLERK Senior Scheduler 06/28/23 Swine Nutritionist Relationship Specialty Start Date End Date Ashli Ni Flor Wan, DO [address] [place] [phone] PCP - General Family Medicine 08/09/21 Chantal Lewis MD [address] [place] [address] Referring Urology 08/09/21 Cathi Faulkner LSW Senior Scheduler 06/28/23 Swine Nutritionist Relationship Specialty Start Date End Date Ashli Ni Flor Wan, DO [address] [place] [address] PCP - General Family Medicine 08/09/21 Chantal Lewis MD [address] [place] [address] Referring Urology 08/09/21 Cathi Faulkner LSW Senior Scheduler 06/28/23 Swine Nutritionist Relationship Specialty Start Date End Date Ashli Ni Jr., DO [address] [place] [address] PCP - General Family Medicine 08/09/21 Chantal Lewis MD [address] [place] [address] Referring Urology 08/09/21 Cathi Faulkner LSW Senior Scheduler 06/28/23 Swine Nutritionist Relationship Specialty Start Date End Date Ashli Ni Jr., DO [address] [place] [phone] PCP - General Family Medicine 08/09/21 Chantal Lewis MD [address] [place] [address] Referring Urology 08/09/21 Cathi Faulkner LSW Senior Scheduler 06/28/23 Swine Nutritionist Relationship Specialty Start Date End Date Ashli Ni Jr., DO [address] [place] [address] PCP - General Family Medicine 08/09/21 Chantal Lewis MD [address] [place] [place] [address] Referring Urology 08/09/21 Cathi Faulkner LSW Senior Scheduler 06/28/23 Swine Nutritionist Relationship Specialty Start Date End Date Ashli Ni Jr., DO [address] [place] [address] PCP - General Family Medicine 08/09/21 Chantal Lewis MD [address] [place] [address] Referring Urology 08/09/21 Swine Nutritionist Relationship Specialty Start Date End Date Ashli Ni Jr., DO [address] [place] [phone] PCP - General Family Medicine 08/09/21 Chantal Lewis MD [address] [place] [address] Referring Urology 08/09/21 Swine Nutritionist Relationship Specialty Start Date End Date Ashli Ni Jr., DO [address] [place] [address] PCP - General Family Medicine 08/09/21 Chantal Lewis MD [address] [place] [address] Referring Urology 08/09/21 Swine Nutritionist Relationship Specialty Start Date End Date Ashli Ni Jr., DO [address] [place] [address] PCP - General Family Medicine 08/09/21 Chantal Lewis MD [address] [place] [address] Referring Urology 08/09/21 Swine Nutritionist Relationship Specialty Start Date End Date Ashli Ni Jr., DO [address] [place] [phone] PCP - General Family Medicine 08/09/21 Chantal Lewis MD [address] [place] [address] Referring Urology 08/09/21 Swine Nutritionist Relationship Specialty Start Date End Date Ashli Ni DO [address] [place] [address] PCP - General Family Medicine 10/23/22 Swine Nutritionist Relationship Specialty Start Date End Date Ashli Ni DO [address] [place] [address] PCP - General Family Medicine 10/23/22 Swine Nutritionist Relationship Specialty Start Date End Date Ashli Ni Jr., DO [address] [place] [address] PCP - General Family Medicine 08/09/21 Chantal Lweis MD [address] [place] [address] Referring Urology 08/09/21 Cathi Faulkner LSW Senior Scheduler 06/28/23 Swine Nutritionist Relationship Specialty Start Date End Date Ashli Ni DO [address] [place] [address] PCP - General Family Medicine 10/23/22 Swine Nutritionist Relationship Specialty Start Date End Date Ashli Ni DO [address] [place] [address] PCP - General Family Medicine 10/23/22 Ashli Ni, DO [address] [place] [address] PCP - [employer] 01/20/24 Swine Nutritionist Relationship Specialty Start Date End Date Ashli Ni, [address] [place] [address] PCP - General Family Medicine 10/23/22 Ashli Ni DO [address] [place] [address] PCP - [employer] 01/20/24 Goals (unrecognized section and content) Goals may [...] BE BASED ON THE PRIMARY CLINICAL RECORDS. [facility]. provides no warranty or guarantee of the accuracy or completeness of information in this document.
== END 2024-05-30 05:43 | disposition home or self-care (01) ==
LOC: ER 05:30
PROVIDERS: Emergency Provider Emergency Medicine; PCP Family Medicine
DX: S29.011A Strain of muscle and tendon of front wall of thorax, initial encounter (principal); X58.XXXA Exposure to other specified factors, initial encounter
CPT/HCPCS: 71046; 96372; 99283; J1885

== ENCOUNTER 2024-09-20 11:10 | Emergency (ER) | payer SELFPAY ==
[2024-09-20 11:17] VITALS: BP 176/107; PULSE 71; TEMP 36.6; O2SAT 96; BMI 50.2
--- OUTSIDE RECORDS SUMMARY | 2024-09-20 11:24 | XMS_ITS | CCD ---
Author Organization [facility] CliniSyct Care Team Providers Care [place] Car[place] Name Role Phone DEBBIE, DR CORNEJO Admitting Unavailable DEBBIE, DR CORNEJO Attending Unavailable LAST, DR Dimitry RAY Referring Unavailable LAST, DR Dimitry RAY Primary Care Unavailable DEBBIE, DR CORNEJO Consulting Unavailable LAKESHIA, DR KRYS Orta Consulting Unavailable DEBBIE, DR CORNEJO Admitting Unavailable DEBBIE, DR CORNEJO Attending Unavailable KASHERRON, DR Dimitry RAY Primary Care Unavailable DEBBIE, DR CORNEJO Consulting Unavailable VIVI PARKS Consulting Unavailable MICHAEL [...] Referring Provider MD Krys Allen Attending Provider Ashli Ni Jr. Primary Care Provider Chantal Lewis MD R Unavailable [phone] DO Caity Ni Primary Care Provider [phone] DO Caity Ni Referring Provider [phone] MD Krys Allen Attending Provider Krys Allen Unavailable Ashli Ni Jr. Primary Care Provider Chantal Lewis MD R Unavailable Last Wan DO, George Robert Primary Care Provi jarod DO Caity Ni Primary Care Provider MD Krys Allen Attending Provider Cathi Storey Unavailable Unavailable Caity Ni Primary Care Unavailable Krys Allen Attending Unavailable Krys Allen Admitting Unavailable Last Wan, [facility]li [facility] Debbie DELUCA, Chantal [place] Unavailable Ashli Ni DO Primary Care Provider Chantal LEWIS Attending Unavailable Chantal LEWIS Attending Unavailable Ashli Ni DO Unavailable YEHUDA HOROWITZ Attending Unavailable ASHLI NI Attending Unavailable ASHLI NI Attending Unavailable ASHLI NI Referring Unavailable ASHLI NI Referring Unavailable ASHLI NI Attending Unavailable JORDAN PETERS Referring Unavailable ASHLI NI JR [facility] Unavail able Dimitry JASSO Attending Unavailable LAST VASQUEZ, ASHLI FLOR Primary Care Unavail able Dimitry JASSO Attending Unavailable ASHLI NI JR Primary [facility] Unavail able ARIES SANCHEZ Referring Unavailable LAST VASQUEZ, ASHLI RAY [facility] Unavail able LAST VASQUEZ, ASHLI FLOR [facility] Unavail able Dimitry JASSO Attending Unavailable ASHLI NI JR [facility] Unavail able JORDAN PETERS Referring Unavailable LAST VASQUEZ, ASHLI RAY [facility] Unavail able JORDAN PETERS Referring Unavailable LAST VASQUEZ, ASHLI FLOR [facility] Unavail able JORDAN PETERS Attending Unavailable SELF Referring Unavailable ASHLI NI JR Primary Care Unavail able Allergies Allergy Classification Reported Allergen(s) Allergy Type Date of Onset Reaction(s) Facility (1 source) Penicillin Drug Allergy [facility] (3 sources) Shellfish; Translations: [shellfish] Drug allergy (disorder) Unknown (qualifier value) [facility] (2 sources) Penicillins; Translations: [PENICILLINS] Drug Allergy 2 Rash [facility] (20 sources) Shellfish; Translations: [shellfish] Drug Allergy 2 Other: See Comments, Unknown (qualifier value) [facility] (20 sources) Penicillins Drug Allergy 2 Rash [facility] (4 sources) Shellfish; Translations: [shellfish derived] Allergy to substance 1 Swelling of Lip/Tongue/Thro at [facility] (15 sources) Amoxicillin Drug Allergy 3 Rash [facility] Work Phone: (15 sources) Shellfish Allergy to substance 2 Unknown [facility] (15 sources) Shellfish-Deriv ed Products Drug Allergy 3 Unknown [facility] Medications Current Medications Medication Drug Class(es) Dates Sig (Normalized) Sig (Original) [id number] 200 actuat albuterol 0.09 mg/actuat metered dose inhaler (6 sources) beta2-Adrenergic Agonist Start: 05-25-2024 End: 05-25-2025 take 2 puff(s) by inhalation every four hours for wheezing albuterol HFA 90 mcg/act inhaler Indications: Bronchitis Inhale 2 puffs every 4 (four) hours if needed for wheezing 18 g 3 05/25/2024 05/25/2025 Active 24 hr alfuzosin hydrochloride 10 mg extended release oral tablet (6 sources) alpha-Adrenergic Gadiel Start: 06-01-2024 take 1 tablet by mouth once daily, then take 1 tablet by mouth every twenty-four hours alfuzosin ER (Uroxatral) 10 MG 24 hr tablet Take 10 mg by mouth Daily 06/01/2024 Active Start: 03-23-2024 End: 05-25-2024 take 1 tablet by mouth once daily alfuzosin 10 mg ER Tab 10 mg = 1 tab(s), Oral, Daily, # 30 tab(s), Refills(s) 11, Pharmacy: [id number], 180, cm, 03/23/24 10:12:00 EDT, Height/Length Dosing, 157, kg, 03/23/24 10:12:00 EDT, Weight Dosing Start Date: 03/23/24 Status: Ordered aspirin 81 mg oral tablet (18 sources) Platelet Aggregation Inhibitor, Nonsteroidal Anti-inflammatory Drug take 1 capsule by mouth once daily aspirin 81 mg cap Take 81 mg by mouth once daily. Active azithromycin 250 mg oral tablet (9 sources) Macrolide Antimicrobial Start: End: azithromycin (Zithromax) 250 MG tablet Indications: Bronchitis 2 pills orally today, then 1 pill orally daily for 4 days 6 tablet 05/25/2024 06/16/2024 Discontinued (Therapy completed) Start: 05-27-2019 End: 03-19-2021 take 2-5 tablets [...] See Instructions Start Date: 08/09/21 Status: Ordered homatropine methylbromide 0.3 mg/ml / HYDROcodone bitartrate 1 mg/ml oral solution (2 sources) Opioid Agonist, Cholinergic Muscarinic Agonist Start: 06-16-2024 HYDROcodone Bit-Homatrop MBr (Hycodan) 5-1.5 MG/5ML solution Indications: Bronchitis Take 5 mL by mouth 4 (four) times a day as needed (cough) 120 mL 06/16/2024 Active Start: 06-16-2024 HYDROcodone Bi t-Homatrop MBr (Hycodan) 5-1.5 MG/5ML solution Indications: Bronchitis Take 5 mL by mouth 4 (four) times a day as needed (cough) 120 mL 06/16/2024 Active hydroCHLOROthiazide 12.5 mg / lisinopril 20 mg oral tablet (20 sources) Thiazide Diuretic, Angiotensin Converting Enzyme Inhibitor Start: 06-01-2024 take 2 tablets by mouth once daily lisinopril-hydroCHLOROthiazide 20-12.5 MG tablet Indications: Primary hypertension (CMS/HCC) TAKE 2 TABLETS BY MOUTH EVERY DAY 60 tablet 3 06/01/2024 Active Start: 05-19-2024 take 2 tablets by mouth once daily lisinopril-hydroCHLOROthiazide 20-12.5 M G tablet Indications: Primary [...] on above: Take 2 tablets by mo uth every afternoon. methylPREDNISolone (2 sources) Corticosteroid Start: 05-25-20 End: 06-01-20 24 methylPREDNISolone (Medrol Dospak) 4 MG tablets Indications: Bronchitis Follow schedule on package instructions 21 tablet 05/25/2024 06/01/2024 Active Multi Vitamin+ (2 sources) Start: 08-02-19 Multi Vitamin+ Refill(s) 0 Start Date: 08/02/21 Status: Ordered multivit-min/ferrous fumarate (MULTI VITAMIN ORAL) (20 sources) Start: 08-02-19 22 multivit-min/ferrous fumarate (MULTI VITAMIN ORAL) Refill(s) 0 08/02/2021 Active Start: 08-02-2021 multivit-min/f errous fumarate (MULTI VITAMIN ORAL) Refill(s) 0 0 08/02/2021 Active Comment on above: Refill(s) 0 Multivitamin preparation (2 sources) take 1 tablet by mouth once daily Multivitamin - 1 tablet Orally Once a day Active nabumetone 750 mg oral tablet (20 sources) Nonsteroidal Anti-inflammatory Drug Start: 05-04-20 End: 06-04-20 take 1 tablet by mouth at mealtime nabumetone (Relafen) 750 MG tablet Indications: Acute right ankle pain TAKE 1 TABLET(750 MG) BY MOUTH IN THE MORNING AND IN THE EVENING WITH MEALS 60 tablet 06/04/2024 Active Start: 03-23-2024 take 2 tablets by mo uth once daily nabumetone 750 mg Tab 1,500 mg = 2 tab(s), Oral, Daily Start Date: 03/23/24 Status: Ordered Start: 02-26-2024 take 1 tablet by kieran at mealtime nabumetone (Relafen) 750 MG tablet Indications: Acute right ankle pain TAKE 1 TABLET(750 MG) BY MOUTH IN THE MORNING AND IN THE EVENING WITH MEALS 60 tablet 02/26/2024 Active Start: 12-31-2023 End: 03-06-2024 take 1 tablet by mouth at mealtime nabumetone (Relafen) 750 MG tablet Indications: Acute right ankle pain TAKE 1 TABLET(750 MG) BY MOUTH IN THE MORNING AND IN THE EVENING WITH MEALS 60 tablet 02/26/2024 03/06/2024 Discontinued (Ineffective) take 500 mg by mouth twice daily [...] every 8 hours as needed for nausea/vomiting. predniSONE 20 mg oral tablet (8 sources) Start: End: 5 take 1 tablet by mouth three times daily, then take 1 tablet by mouth twice daily, then take 1 tablet by mouth once daily predniSONE (Deltasone) 20 MG tablet Indications: Bronchitis Take 1 tablet (20 mg) by mouth 3 (three) times a day for 3 days, THEN 1 tablet (20 mg) 2 (two) times a day for 3 days, THEN 1 tablet (20 mg) Daily for 2 days. 17 tablet 06/16/2024 06/23/2024 Active Start: 05-27-2019 End: 03-19-2021 take 60 mg [...] 2019 3:36am administer with food or milk tamsulosin hydrochloride 0.4 mg oral capsule (8 sources) alpha-Adrenergic Gadiel take 0.4 mg by mouth once daily tamsulosin (FLOMAX) 0.4 mg Take 0.4 mg by mouth once daily. Active take 1 capsule by mo ut every twenty-four hours in the morning tamsulosin (Flomax) 0.4 MG 24 hr capsule Take 0.4 mg by mouth in the morning. Active traZODone hydrochloride 50 mg oral tablet (20 sources) Serotonin Reuptake Inhibitor Start: 10-23-2022 End: 03-23-2024 take 1 tablet [...] every four to six hours Hydrocodone-Acetamin ophen ([place]) 5-325 mg tablet Discontinued 1 TAB PO [...] Take 20 mg by mouth once daily. Triamcinolone (2 sources) Corticosteroid Start: 03-21-2021 Kenalog [...] Chronic Chronic obstructive pulmonary disease and bronchiectasis (12 sources) Bronchitis; Translations: [Bronchitis, not specified as acute or chronic] Onset: 05-25-2024 05-25-2024 Episodic Esophageal disorders (18 sources) Gastroesophageal reflux disease without esophagitis; Translations: [Gastro-esophageal reflux disease without esophagitis] Onset: 02-28-2023 02-28-2023 Chronic Essential hypertension (20 sources) Essential (primary) hypertension; Translations: [Elevated blood pressure] Onset: 08-08-2021 Chronic Hyperplasia of prostate (20 sources) Benign prostatic hyperplasia without lower urinary tract symptoms; Translations: [Benign prostatic hypertrophy without outflow obstruction] Onset: 08-08-2021 Chronic Nonspecific chest pain (1 source) Chest pain, unspecified; Translations: [CHEST PAIN UNSPECIFIED] Onset: 08-21-2021 Episodic Other aftercare (1 source) Other prison (current) drug therapy; Translations: [OTH GROUP HOME CURRENT DRUG THERAPY] Onset: 08-21-2021 Episodic Other connective tissue disease (2 sources) Abdominal muscle pain; Translations: [Myalgia, other site] 06-16-2024 Episodic Other lower respiratory disease (3 sources) Dyspnea, unspecified; Translations: [DYSPNEA UNSPECIFIED] Onset: 08-17-2021 Episodic Other male genital disorders (4 sources) Disorder of male genital organs, unspecified; Translations: [DISORDER MALE GENITAL ORGANS UNS] Onset: 02-17-2022 Episodic Other non-traumatic joint disorders (3 sources) Acute ankle pain; Translations: [Pain in right [...] mass index (BMI) 45.0-49.9, adult Chronic Other nutritional; endocrine; and metabolic disorders (2 sources) Obesity caused by energy imbalance; Translations: [Morbid (severe) obesity due to excess calories] 03-05-2024 Chronic Other screening for suspected conditions (not mental disorders or infectious disease) (5 sources) Encounter for screening for malignant neoplasm of prostate; Translations: [Screening for malignant neoplasm done] Onset: 03-23-2024 Episodic Pneumonia (except that caused by tuberculosis or sexually transmitted disease) (1 source) Pneumonia, unspecified organism; Translations: [PNEUMONIA UNSPECIFIED ORGANISM] Onset: 08-21-2021 Episodic Residual codes; unclassified (20 sources) Obstructive sleep apnea syndrome; Translations: [Obstructive [...] Classification Problem Date Documented Da te Episodic/Chronic Diabetes mellitus without complication (2 sources) Hyperglycemia; Translations: [Hyperglycemia, unspecified] 03-06-2024 Episodic Genitourinary symptoms and ill-defined conditions (20 sources) Nocturia; Translations: [Asymptomatic microscopic hematuria] Onset: 08-04-2021 Episodic Other connective tissue disease (2 sources) Other enthesopathies, not elsewhere classified; Translations: [Right shoulder tendonitis M77.8] Onset: 03-21-2021 Resolved: 04-25-2021 Episodic Other male genital disorders (17 sources) Mass of epididymis; Translations: [Other specified disorders of the male genital organs] Onset: 03-05-2023 06-07-2021 Episodic Other male genital disorders (19 sources) Testicular mass; Translations: [Other specified disorders of the male genital organs] Onset: 03-05-2023 06-07-2021 Episodic Other non-traumatic joint disorders (1 source) Pain in right shoulder; Translations: [Acute pain of right shoulder M25.511] Onset: 03-21-2021 Resolved: 03-21-2021 Episodic Other non-traumatic joint disorders (2 sources) Chronic pain of left upper limb; Translations: [Pain in left shoulder] 03-06-2024 Episodic Residual codes; unclassified (16 sources) Insomnia; Translations: [Insomnia, unspecified] Onset: 02-28-2023 03-23-2024 Episodic Results Test Name Value Interpretation Reference Range Facility [facility] 08-03-2024 [facility] Telephone (RADTSA) -- JORDAN BENNETT ([id number]) 1975 M Date Time Provider Department 08/03/24 Dimitry JASSO During your visit today, we recorded the following information about you: Gavin Rea RN 08/03/2024 10:22 AM Signed Sudhir, pt's , left a message stating Jordan notice a lump in his rectal area when wiping his bottom. She isn't sure if he should notify Dr. Jasso or his PCP. I attempted to call Sudhir to get more information but there was no answer. MAIKEL Holguin Ariana E, RN 08/03/2024 10:30 AM Signed Sudhir called back and said Jordan noticed this lump in his rectal area approximately one week ago. She said the area is tender when wiping after a bowel movement. She said he has bright red blood per rectum with each bowel movement x 1 week. He has no history of hemorrhoids. She said he denies constipation. He denies fever. He currently takes a low dose Aspirin 81mg. Please advise. MAIKEL Holguin Ariana E, RN 08/03/2024 10:49 AM Signed Sudhir notified of Dr. Jasso's recommendation. She will notify Jordan's PCP. Gavin Rea RN Allergies As of Date: 08/03/2024 Noted Allergy Reaction PENICILLINS 08/23/2021 2 - Rash SHELLFISH CONTAINING PRODUCTS 08/23/2021 14 - Other: See Comments Date Reviewed: 05/13/2024 Reviewed by: Gavin Rea LPN - Fully Assessed Reason for Visit: Lump [[id number]] Prescriptions as of 08/03/2024 - tamsulosin (FLOMAX) 0.4 mg Take 0.4 mg by mouth once daily. - NABUMETONE ORAL Take 500 mg by [...] by mouth. Problem List As Of Date 08/03/2024 Noted Resolved Seminoma of descended right testis (HCC) [C62.1*02/14/2023 Encounter Status:Closed by GVAIN REA on 08/03/24 Normal [facility] XR CHEST 2 VIEWSon XR CHEST 2 VIEWS EXAM: XR CHEST [...] by the interpreting Radiologist. 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 lisinopril-hydroCHLOROthia zide (ZESTORETIC) 20-12.5 mg per tablet [...] BP 125/79 Pulse 65 Temp (!) 21.1 ?C (69.9 ?F) Resp 18 Wt (!) 161.3 kg (355 lb 9.6 oz) SpO2 98% BMI 49.62 kg/m? KPS: 100 General Appearance: Alert and oriented. No acute distress. HEENT: NCAT. Sclera anicteric. PERRL. EOMI. Neck: Normal ROM. No palpable cervical or supraclavicular adenopathy. Chest: No respiratory distress. Lungs clear to auscultation bilaterally. Heart: Regular rate and rhythm. Abdomen: Soft. Nontender. Nondistended. descended left albert (more content not included)... Normal [facility] CT ABD/PEL W IVCONon 024 CT ABD/PEL W IVCON * * *Final Report* * * DATE OF EXAM: May 06 2024 1:07PM [facility] 0530 - CT ABD/PEL W IVCON [...] was performed concurrently and is dictated separately. Signal Constructor (topogram) images: Unremarkable. IMPRESSION: No metastatic disease [...] any questions regarding this interpretation, please call [phone]. If you are unable to reach us at the number above, please feel free to contact [facility] eRadiology at [phone]. [id number] Normal [facility] CT Abdomen and Pelvis W cont [...] any questions regarding this interpretation, please call [phone]. If you are unable to reach us at the number above, please feel free to contact [facility]Radiology at [phone]. DIVISION OF RADIOLOGY * * *Final Report* * * DATE OF EXAM: May 06 2024 1:07PM [facility] 0530 - CT ABD/PEL W IVCON [...] was performed concurrently and is dictated separately. Signal Constructor (topogram) images: Unremarkable. DIVISION OF RADIOLOGY Provider, [facility] - 05/06/2024 * * *Final Report* * * DATE OF EXAM: May 06 2024 1:07PM [facility] 0530 - CT ABD/PEL W IVCON [...] was performed concurrently and is dictated separately. Signal Constructor (topogram) images: Unremarkable. IMPRESSION IMPRESSION: No metastatic [...] any questions regarding this interpretation, please call [phone]. If you are unable to reach us at the number above, please feel free to contact [facility]Radiology at [phone]. [facility] CT CHEST W IVCONon 11-20-[address] CHEST W IVCON * * *Final Report* * * DATE OF EXAM: May 06 2024 1:07PM [facility] 0539 - CT CHEST W IVCON [...] was performed concurrently and is dictated separately. Signal Constructor (topogram) images: Unremarkable. IMPRESSION: No metastatic disease [...] any questions regarding this interpretation, please call [phone]. If you are unable to reach us at the number above, please feel free to contact [facility]Radiology at [phone]. [id number] Normal [facility] CT Chest W contrast Tammi IMPRESSION: [...] any questions regarding this interpretation, please call [phone]. If you are unable to reach us at the number above, please feel [facility] to [facility] at [phone]. DIVISION OF RADIOLOGY * * *Final Report* * * DATE OF EXAM: May 06 2024 1:07PM [facility] 0539 - CT CHEST W IVCON [...] was performed concurrently and is dictated separately. Signal Constructor (topogram) images: Unremarkable. DIVISION OF RADIOLOGY Provider, [facility] - 05/06/2024 * * *Final Report* * * DATE OF EXAM: May 06 2024 1:07PM [facility] 0539 - CT CHEST W IVCON [...] was performed concurrently and is dictated separately. Signal Constructor (topogram) images: Unremarkable. IMPRESSION IMPRESSION: No metastatic [...] any questions regarding this interpretation, please call [phone]. If you are unable to reach us at the number above, please feel free to contact [facility]Radiology at [phone]. [facility] CT Chest W contrast IVOrdere d By: [facility] Provider on 05-06-2024 [facility] No Panel Informationon 05-06 Radiology Study observation (narrative) [facility] Provider Letteron 04-09-2024 Provider Letter Provider Letter April 09, 2024 JORDAN BENNETT [id number] [id number] : 1975 Dear Jordan We have been trying to reach you with no success. It is important that you return our call regarding your test results upon receiving this letter. Also, at the time of your call, please provide us with your current information. Thank you for your prompt attention to this matter. Sincerely, [facility] [address] [address] [facility] Ambulatory Visit Summaryon 1 Ambulatory Visit [...] With: Chantal LEWIS MD Where: [facility] [address] [place] [address]- You Need to Schedule the Following Appointments Follow Up with Chantal LEWIS MD, URL When: Comments: 10 mos (getting PSA done soon) Where: [facility] [address] , [place] [address]- [phone] Medications What How Much When Instructions New alfuzosin (alfuzosin 10 mg ER Tab) 1 Tablets By Mouth Every day Refills: 11 Pickup at [facility] #[id number] Unchanged cranberry (cranberry oral capsule) See instructions [...] physician if questions or concerns Pharmacy Information [facility] #[id number]: [address] [place], [place] [id number] [phone] Allergies shellfish (Unknown) Problems Ongoing - Any [...] area. Yo (more content not included)... Normal [facility] Urology Office/Clinic Noteon 03-23-2024 Urology Office/Clinic [...] URL [facility] [address], [place] [address] [phone] Additional Instructions: 10 mos (getting PSA done [...] Medications alfuz (more content not included)... Normal [facility] Comment on above: Result Comment: Elec tronically Signed By: Chantal LEWIS MD\.br\Date and Time Signed: 03/23/24 11:00 EDT\.br\Electronically Co-Signed By: Kim Rios\.br\Date and Time Co-Signed: 03/23/24 10:57 EDT Hemoglobin A1con 03-07-2024 HbA1c (Bld) [Mass fraction] 5.6 % 4.8 - 5.6 % [facility] Comment on above: Prediabetes: 5.7 - 6 .4 Diabetes: >6.4 Glycemic control for adults with diabetes: <7.0 Lipid 1996 panelon 4 Cholesterol [Mass/Vol] 183 mg/dL 100 - 199 mg/dL [facility] Cholesterol in HDL [Mass/Vol] 48 mg/dL 39 - PINF mg/dL [facility] Cholesterol in LDL [Mass/Vol] 116 mg/dL High 0 - 99 mg/dL [facility] Cholesterol in VLDL [Mass/Vol] 19 mg/dL 5 - 40 mg/dL [facility] Interpretation and review of laboratory results Abnormal [facility] Triglyceride [Mass/Vol] 105 mg/dL 0 - 149 mg/dL [facility] No Panel Informationon 03-07 Performed at: [address] [place] [address] [phone] Speech Assistant: Houston Johns PhD, Phone: [phone] [facility]24 Prostate specific Ag [Mass/Vol] 0.5 ng/mL 0.0 - 4.0 ng/mL [facility] Comment on above: David ECLIA methodol ogy. According to the [employer], Serum PSA should decrease and remain at undetectable levels after radical prostatectomy. The AUA defines biochemical recurrence as an initial PSA value 0.2 ng/mL or greater followed by a subsequent confirmatory PSA value 0.2 ng/mL or greater. Values obtained with different assay methods or kits cannot be used interchangeably. Results cannot be interpreted as absolute evidence of the presence or absence of malignant disease. Specimen Status Reporton Clindamycin Disk diffusion (KB) [[facility] Comment [facility] Comment on above: Shara Murray LP Defa ult Shara Murray LP Default A hand-written panel/profile was received from your office. In accordance with the [facility] Ambiguous Test Code Policy dated December 2002, we have completed your order by using the closest currently or formerly recognized AMA panel. We have assigned Lipid Panel, Test Code #709369 to this request. If this is not the testing you wished to receive on this specimen, please contact the [facility] Client Inquiry/Technical Services Department to clarify the test order. We appreciate your business. [facility] 02-06-2024 AFP [Mass/Vol] ng/mL Normal <11.0 [facility] Comment on above: Order Comment: Speci men Type: BLOOD SPECIMENOrdering Facility: [facility] [facility] Address: [address] [place] [address] Result Comment: Resu lt rechecked. The Alpha-Fetoprotein test was performed using the Siemens Centaur XP chemiluminometric immunoassay method. Results obtained with different assay methods or kits cannot be used interchangeably. 1.75 The Alpha-Fetoprotein test was performed using the Patrick NewsCasticel DxI immunoenzymatic assay. Results obtained with different assay methods or kits cannot be used interchangeably. Performed By: #### 1 834-1 ####[facility] LABCLIA [id number] [address] STATES OF [facility] BETA HCG QUANT TUMOR MARKERo n 02-06-2024 BETA HCG QUANT TUMOR MARKER <1 Normal 0-3 [facility] Comment on above: Order Comment: Speci men Type: BLOOD SPECIMENOrdering Facility: [facility] Address: [address] [place] [address] Result Comment: INTE RPRETIVE INFORMATION: Beta hCG, [...] reference intervals for this test in the [facility] Test Directory (SpaceCurve.Codemasters). This test was developed and its performance characteristics determined by [facility]. It has not been cleared or approved by the US Food and Drug Administration. This test was performed in a CLIA certified laboratory and is intended for clinical purposes. Performed By: [facility] [address] [place] [address] Evp Operations: Cam Archibald MD, PhD CLIA Number: [id number] Performed By: #### B HCG ####[facility] [id number] [place] [address] CBC W Auto Differential pane l (Bld)on 02-06-2024 Basophils (Bld) [#/Vol] 0.03 10*3/uL Normal <0.11 [facility] Comment on above: Order Comment: Speci men Type: BLOOD SPECIMENOrdering Facility: [facility] Address: [address] [place] [address] Performed By: #### 5 7021-8 ####[facility] LABCLIA [id number] [place] [address] Basophils/100 WBC (Bld) 0.4 % Normal [facility] Comment on above: Order Comment: Speci men Type: BLOOD SPECIMENOrdering Facility: [facility] Address: [address] [place] [address] Performed By: #### 5 7021-8 ####[facility] LABCLIA [id number] [place] [address] Differential cell count method Nom (Bld) Auto Normal [facility] Comment on above: Order Comment: Speci men Type: BLOOD SPECIMENOrdering Facility: [facility] Address: [address] [place] [address] Performed By: #### 5 7021-8 ####[facility] LABCLIA [id number] [place] [address] Eosinophils (Bld) [#/Vol] 0.14 10*3/uL Normal <0.46 [facility] Comment on above: Order Comment: Speci men Type: BLOOD SPECIMENOrdering Facility: [facility] Address: [address] [place] [address] Performed By: #### 5 7021-8 ####[facility] LABCLIA [id number] [place] [address] Eosinophils/100 WBC (Bld) 1.9 % Normal [facility] Comment on above: Order Comment: Speci men Type: BLOOD SPECIMENOrdering Facility: [facility] Address: [address] [place] [address] Performed By: #### 5 7021-8 ####[facility] LABCLIA [id number] [place] [address] Erythrocyte distribution width (RBC) [Ratio] 13.1 % Normal 11.5-15.0 [facility] Comment on above: Order Comment: Speci men Type: BLOOD SPECIMENOrdering Facility: [facility] Address: [address] [place] [address] Performed By: #### 5 7021-8 ####[facility] LABCLIA [id number] [place] [address] Hematocrit (Bld) [Volume fraction] 38.4 % Low 39.0-51.0 [facility] Comment on above: Order Comment: Speci men Type: BLOOD SPECIMENOrdering Facility: [facility] Address: [address] [place] [address] Performed By: #### 5 7021-8 ####[facility] LABCLIA [id number] [place] [address] Hemoglobin (Bld) [Mass/Vol] 13.9 g/dL Normal 13.0-17.0 [facility] Comment on above: Order Comment: Speci men Type: BLOOD SPECIMENOrdering Facility: [facility] Address: [address] [place] [address] Performed By: #### 5 7021-8 ####[facility] LABCLIA [id number] [place] [address] Immature granulocytes (Bld) [#/Vol] 0.05 10*3/uL Normal <0.10 [facility] Comment on above: Order Comment: Speci men Type: BLOOD SPECIMENOrdering Facility: [facility] Address: [address] [place] [address] Performed By: #### 5 7021-8 ####[facility] LABCLIA [id number] [place] [address] Immature granulocytes/100 WBC (Bld) 0.7 % Normal [facility] Comment on above: Order Comment: Speci men Type: BLOOD SPECIMENOrdering Facility: [facility] Address: [address] [place] [address] Performed By: #### 5 7021-8 ####[facility] LABCLIA [id number] [place] [address] Lymphocytes (Bld) [#/Vol] 1.00 10*3/uL Normal 1.00-4.00 [facility] Comment on above: Order Comment: Speci men Type: BLOOD SPECIMENOrdering Facility: [facility] Address: [address] [place] [address] Performed By: #### 5 7021-8 ####[facility] LABCLIA [id number] [place] [address] Lymphocytes/100 WBC (Bld) 13.5 % Normal [facility] Comment on above: Order Comment: Speci men Type: BLOOD SPECIMENOrdering Facility: [facility] Address: [address] [place] [address] Performed By: #### 5 7021-8 ####[facility] LABCLIA [id number] [place] [address] MCH (RBC) [Entitic mass] 30.5 pg Normal 26.0-34.0 [facility] Comment on above: Order Comment: Speci men Type: BLOOD SPECIMENOrdering Facility: [facility] Address: [address] [place] [address] Performed By: #### 5 7021-8 ####[facility] LABCLIA [id number] [place] [address] MCHC (RBC) [Mass/Vol] 36.2 g/dL High 30.5-36.0 [facility] Comment on above: Order Comment: Speci men Type: BLOOD SPECIMENOrdering Facility: [facility] Address: [address] [place] [address] Performed By: #### 5 7021-8 ####[facility] LABCLIA [id number] [place] [address] MCV (RBC) [Entitic vol] 84.4 fL Normal 80.0-100.0 [facility] Comment on above: Order Comment: Speci men Type: BLOOD SPECIMENOrdering Facility: [facility] Address: [address] [place] [address] Performed By: #### 5 7021-8 ####[facility] LABCLIA [id number] [place] [address] Monocytes (Bld) [#/Vol] 0.39 10*3/uL Normal <0.87 [facility] Comment on above: Order Comment: Speci men Type: BLOOD SPECIMENOrdering Facility: [facility] Address: [address] [place] [address] Performed By: #### 5 7021-8 ####[facility] LABCLIA [id number] [place] [address] Monocytes/100 WBC (Bld) 5.2 % Normal [facility] Comment on above: Order Comment: Speci men Type: BLOOD SPECIMENOrdering Facility: [facility] Address: [address] [place] [address] Performed By: #### 5 7021-8 ####[facility] LABCLIA [id number] [place] [address] Neutrophils (Bld) [#/Vol] 5.82 10*3/uL Normal 1.45-7.50 [facility] Comment on above: Order Comment: Speci men Type: BLOOD SPECIMENOrdering Facility: [facility] Address: [address] [place] [address] Performed By: #### 5 7021-8 ####[facility] LABCLIA [id number] [place] [address] Neutrophils/100 WBC (Bld) 78.3 % Normal [facility] Comment on above: Order Comment: Speci men Type: BLOOD SPECIMENOrdering Facility: [facility] Address: [address] [place] [address] Performed By: #### 5 7021-8 ####[facility] LABCLIA [id number] [place] [address] Nucleated RBC (Bld) [#/Vol] 10*3/uL Normal <0.01 [facility] Comment on above: Order Comment: Speci men Type: BLOOD SPECIMENOrdering Facility: [facility] Address: [address] [place] [address] Performed By: #### 5 7021-8 ####[facility] LABCLIA [id number] [place] [address] Nucleated RBC/100 WBC (Bld) [Ratio] 0.0 /100 WBC Normal [facility] Comment on above: Order Comment: Speci men Type: BLOOD SPECIMENOrdering Facility: [facility] Address: [address] [place] [address] Performed By: #### 5 7021-8 ####[facility] LABCLIA [id number] [place] [address] Platelet mean volume (Bld) [Entitic vol] 10.1 fL Normal 9.0-12.7 [facility] Comment on above: Order Comment: Speci men Type: BLOOD SPECIMENOrdering Facility: [facility] Address: [address] [place] [address] Performed By: #### 5 7021-8 ####[facility] LABCLIA [id number] [place] [address] Platelets (Bld) [#/Vol] 229 10*3/uL Normal 150-400 [facility] Comment on above: Order Comment: Speci men Type: BLOOD SPECIMENOrdering Facility: [facility] Address: [address] [place] [address] Performed By: #### 5 7021-8 ####[facility] LABIA [id number] [place] [address] RBC (Bld) [#/Vol] 4.55 10*6/uL Normal 4.20-6.00 [facility] Comment on above: Order Comment: Speci men Type: BLOOD SPECIMENOrdering Facility: [facility] Address: [address] [place] [address] Performed By: #### 5 7021-8 ####[facility] [id number] [place] [address] WBC (Bld) [#/Vol] 7.43 10*3/uL Normal 3.70-11.00 [facility] Comment on above: Order Comment: Speci men Type: BLOOD SPECIMENOrdering Facility: [facility] Address: [address] [place] [address] Performed By: #### 5 7021-8 ####[facility] [id number] [place] [address] CNOVSPon 02-06-2024 CNOVS Visit (SP) Office (H EMASA) -- JORDAN BENNETT ([id number]) 1975 M Date Time Provider Department 02/06/24 [...] and symmetrical PATHOLOGY: 08/03/2021 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 Normal [facility] Comprehensive metabolic 2000 panelon 02-06-2024 Albumin [Mass/Vol] 4.2 g/dL Normal 3.9-4.9 [facility] Comment on above: Order Comment: Speci men Type: BLOOD SPECIMENOrdering Facility: [facility] Address: [address] [place] [address] Performed By: #### 2 4323-8, 2531-0 ####[facility] LABCLIA [id number] [place] [address] ALP [Catalytic activity/Vol] 66 U/L Normal 38-113 [facility] Comment on above: Order Comment: Speci men Type: BLOOD SPECIMENOrdering Facility: [facility] Address: [address] [place] [address] Performed By: #### 2 4323-8, 2531-0 ####[facility] LABCLIA [id number] [place] [address] ALT [Catalytic activity/Vol] 24 U/L Normal 10-54 [facility] Comment on above: Order Comment: Speci men Type: BLOOD SPECIMENOrdering Facility: [facility] Address: [address] [place] [address] Performed By: #### 2 4323-8, 2531-0 ####[facility] LABCLIA [id number] [place] [address] Anion gap [Moles/Vol] 13 mmol/L Normal 8-15 [facility] Comment on above: Order Comment: Speci men Type: BLOOD SPECIMENOrdering Facility: [facility] Address: [address] [place] [address] Performed By: #### 2 4323-8, 2531-0 ####[facility] LABCLIA [id number] [place] [address] AST [Catalytic activity/Vol] 17 U/L Normal 14-40 [facility] Comment on above: Order Comment: Speci men Type: BLOOD SPECIMENOrdering Facility: [facility] Address: [address] [place] [address] Performed By: #### 2 432-8, 2531-0 ####[facility] LABCLIA [id number] [place] [address] Bilirubin [Mass/Vol] 0.3 mg/dL Normal 0.2-1.3 [facility] Comment on above: Order Comment: Speci men Type: BLOOD SPECIMENOrdering Facility: [facility] Address: [address] [place] [address] Performed By: #### 2 432-8, 2531-0 ####[facility] LABCLIA [id number] [place] [address] Calcium [Mass/Vol] 9.5 mg/dL Normal 8.5-10.2 [facility] Comment on above: Order Comment: Speci men Type: BLOOD SPECIMENOrdering Facility: [facility] Address: [address] [place], [place] [address] Performed By: #### 2 4323-8, 2531-0 ####[facility] LABCLIA [id number] [place] [address] Chloride [Moles/Vol] 103 mmol/L Normal 98-107 [facility] Comment on above: Order Comment: Speci men Type: BLOOD SPECIMENOrdering Facility: [facility] Address: [address] [place], [place] [address] Performed By: #### 2 4323-8, 2531-0 ####[facility] LABCLIA [id number] [place] [address] CO2 [Moles/Vol] 22 mmol/L Normal 22-30 [facility] Comment on above: Order Comment: Speci men Type: BLOOD SPECIMENOrdering Facility: [facility] Address: [address] [place] [address] Performed By: #### 2 4323-8, 2532-0 ####[facility] LABCLIA [id number] [place] [address] Creatinine [Mass/Vol] 1.07 mg/dL Normal 0.73-1.22 [facility] Comment on above: Order Comment: Speci men Type: BLOOD SPECIMENOrdering Facility: [facility] Address: [address] [place] [address] Performed By: #### 2 4323-8, 253-0 ####[facility] LABCLIA [id number] [place] [address] Creatinine and Glomerular filtration rate.predicted panel (S/P/Bld) 85 mL/min/1.73m??? Normal >=60 [facility] Comment on above: Order Comment: Speci men Type: BLOOD SPECIMENOrdering Facility: [facility] Address: [address] [place] [address] Result Comment: Stefanie mated Glomerular Filtration Rate [...] actual GFR. Performed By: #### 2 4323-8, 2532-0 ####[facility] LABCLIA [id number] [place] [address] Glucose [Mass/Vol] 135 mg/dL High 74-99 [facility] Comment on above: Order Comment: Speci men Type: BLOOD SPECIMENOrdering Facility: [facility] Address: [address] [place] [address] Result Comment: The [place] [employer] (ADA) provides guidance for cutoff [...] Standards of Medical Care in Diabetes 2016, [place] [employer]. Diabetes Care. 2016.39(Suppl 1). Performed By: #### 2 4323-8, ####[facility] LABCLIA [id number] [place] [address] Potassium [Moles/Vol] 3.8 mmol/L Normal 3.7-5.1 [facility] Comment on above: Order Comment: Speci men Type: BLOOD SPECIMENOrdering Facility: [facility] Address: [address] [place] [address] Performed By: #### 2 [address], ####[facility] LABIA [id number] [place] [address] Protein [Mass/Vol] 6.6 g/dL Normal 6.3-8.0 [facility] Comment on above: Order Comment: Speci men Type: BLOOD SPECIMENOrdering Facility: [facility] Address: [address] [place] [address] Performed By: #### 2 4328, 0 ####[facility] LABIA [id number] [place] [address] Sodium [Moles/Vol] 138 mmol/L Normal 136-144 [facility] Comment on above: Order Comment: Speci men Type: BLOOD SPECIMENOrdering Facility: [facility] Address: [address] [place] [address] Performed By: #### 2 432-8, 2531-0 ####[facility] LABCLIA [id number] [place] [address] Urea nitrogen [Mass/Vol] 21 mg/dL Normal 9-24 [facility] Comment on above: Order Comment: Speci men Type: BLOOD SPECIMENOrdering Facility: [facility] Address: [address] [place], [place] [address] Performed By: #### 2 4323-8, 2532-0 ####[facility] LABCLIA [id number] [place] [address] LDH SerPl-cCncon 02-06-2024 LDH [Catalytic activity/Vol] 195 U/L Normal 135-225 [facility] Comment on above: Order Comment: Speci men Type: BLOOD SPECIMENOrdering Facility: [facility] Address: [address] [place] [address] Performed By: #### 2 4323-8, 2532-0 ####[facility] LABCLIA [id number] [place] [address] Alberto 10-28-2023 CNPN Telephone (RADTSA) -- JORDAN BENNETT ([id number]) 1975 M Date Time Provider Department 10/28/23 [...] BLOOD COUNT AND DIFFERENTIAL [SQCBCDIF] Order #: [id number] FUTURE ALPHA FETOPROTEIN [SQAFP] Order #: [id number] FUTURE BETA HCG QUANT TUMOR MARKER [SQBHCG] Order #: [id number] FUTURE COMPREHENSIVE METABOLIC PANEL [SQCMP] Order #: [id number] FUTURE LACTATE DEHYDROGENASE [SQLD6] Order #: [id number] FUTURE CT CHEST W IVCON [[id number]] Order #: [id number] FUTURE iv contrast (will be provided with [...] 1 EachRfl: 0 CT ABD/PEL W IVCON [[id number]] Order #: [id number] FUTURE iv contrast (will be provided with [...] as ne (more content not included)... Normal [facility] CNOVon 10-22-2023 CNOV Office Visit (RADTSA ) -- JORDAN BENNETT ([id number]) 1975 M Date Time Provider Department 10/22/23 [...] status post right radical orchiectomy, stage IB [id number] After approximately 2 years of surveillance for [...] Lymph 1.00 - 4.00 k/uL 0.88 (L) [place]% % 9.0 Abs [place] <0.87 k/uL 0.51 Eosin% % 1.8 Abs [...] Speech flu (more content not included)... Normal [facility] PET+CT Guidance for localiza tion of [...] any questions regarding this interpretation, please call [phone]. If you are unable to reach us at the number above, please feel free to contact [facility] at [phone]. DIVISION OF RADIOLOGY * * *Final Report* [...] * Radiopharmaceutical Dose: 17.4 mCi * Radiopharmaceutical: I83-Vgpmcdrxkajakeqfkb (FDG) COMPARISON: FDG PET/CT 06/07/2023 CORRELATION: No relevant imaging available RESULT: REFERENCES: SUV reference values: * Blood pool (descending aorta) activity: SUVmax 3.1 * Background liver activity: SUVmax 3.8; SUVmean 2.8 Signal Constructor (topogram) images: No additional findings. Notes and [...] SUV max 7.3. DIVISION OF RADIOLOGY Provider, [facility] - 10/18/2023 * * *Final Report* * [...] * Radiopharmaceutical Dose: 17.4 mCi * Radiopharmaceutical: W50-Xlwaxphvcwhfvyvqkt (FDG) COMPARISON: FDG PET/CT 06/07/2023 CORRELATION: No relevant imaging available RESULT: REFERENCES: SUV reference values: * Blood pool (descending aorta) activity: SUVmax 3.1 * Background liver activity: SUVmax 3.8; SUVmean 2.8 Signal Constructor (topogram) images: No additional findings. Notes and [...] any questions regarding this interpretation, please call [phone]. If you are unable to reach us at the number above, please feel free to contact [facility] eRadiology at [phone]. [facility] PET+CT Guidance for localiza tion of tumor of Skull base to mid-thigh-- W 18F-FDG IVOrdered By: Ccf Provider on 10-18-2023 [facility] BETA HCG QUANT TUMOR MARKERo n 10-17-2023 HCG.beta subunit Qn m[IU]/mL [facility] Comment on above: INTERPRETIVE INFORMA TION: Beta [...] reference intervals for this test in the [facility] Test Directory (Hitwise). This test was developed and its performance characteristics determined by [facility]. It has not been cleared or approved by the [place] Food and Drug Administration. This test was performed in a CLIA certified laboratory and is intended for clinical purposes. Performed By: [facility] [address] [place] [address] Evp Operations: Cam Archibald MD, PhD CLIA Number: [id number] HCG.beta subunit Qnon 2023 [facility] AFP [Mass/Vol]Ordered By: Piper Carrillo on 10-16-2023 Interpretation and review of laboratory results Normal [facility] ALPHA FETOPROTEIN BLOrdered By: Shaina Carrillo on 10-16-2023 AFP [Mass/Vol] ng/mL NINF - 11.0 ng/mL [facility] Comment on above: Result rechecked. The test [...] Alpha-Fetoprotein test was performed using the Siemens AccessPayaur XP chemiluminometric immunoassay method. Results obtained with different assay methods or kits cannot be used interchangeably. AFP [facility] 10-15-2023 AFP [Mass/Vol] ng/mL Normal <11.0 [facility] Comment on above: Order Comment: Speci men Type: BLOOD SPECIMENOrdering Facility: [facility] Address: [address] [place] [address] Result Comment: Resu lt rechecked. The test [...] Alpha-Fetoprotein test was performed using the Siemens AccessPayaur XP chemiluminometric immunoassay method. Results obtained with different assay methods or kits cannot be used interchangeably. Performed By: #### 1 834-1 ####[facility] LABCLIA [id number] [address] OF [facility] BETA HCG QUANT TUMOR MARKERo n 10-15-2023 BETA HCG QUANT TUMOR MARKER <1 Normal 0-3 [facility] Comment on above: Order Comment: Speci men Type: BLOOD SPECIMENOrdering Facility: [facility] Address: [address] [address] Result Comment: INTE RPRETIVE INFORMATION: Beta hCG, [...] reference intervals for this test in the [facility] Test Directory (Hitwise). This test was developed and its performance characteristics determined by [facility]. It has not been cleared or approved by the US Food and Drug Administration. This test was performed in a CLIA certified laboratory and is intended for clinical purposes. Performed By: [facility] [address] [place] [address] Evp Operations: Cam Archibald MD, PhD CLIA Number: [id number] Performed By: #### B HCG ####[facility]IES[facility]IA [id number] [place] [id number] CBC W Auto Differential pane l (Bld)on 10-15-2023 Basophils (Bld) [#/Vol] 0.03 10*3/uL [facility] Basophils/100 WBC (Bld) 0.5 % [facility] Differential cell count method Nom (Bld) Auto [facility] Eosinophils (Bld) [#/Vol] 0.10 10*3/uL [facility] Eosinophils/100 WBC (Bld) 1.8 % [facility] Erythrocyte distribution width (RBC) [Ratio] 13.0 % 11.5 - 15.0 % [facility] Hematocrit (Bld) [Volume fraction] 37.4 % Low 39.0 - 51.0 % [facility] Hemoglobin (Bld) [Mass/Vol] 13.2 g/dL 13.0 - 17.0 g/dL [facility] Immature granulocytes (Bld) [#/Vol] 0.03 10*3/uL [facility] Immature granulocytes/100 WBC (Bld) 0.5 % [facility] Interpretation and review of laboratory results Abnormal [facility] Lymphocytes (Bld) [#/Vol] 0.88 10*3/uL Low [facility] Lymphocytes/100 WBC (Bld) 15.5 % [facility] MCH (RBC) [Entitic mass] 30.6 pg 26.0 - 34.0 pg [facility] MCHC (RBC) [Mass/Vol] 35.3 g/dL 30.5 - 36.0 g/dL [facility] MCV (RBC) [Entitic vol] 86.6 fL 80.0 - 100.0 fL [facility] Monocytes (Bld) [#/Vol] 0.51 10*3/uL NINF [facility] Monocytes/100 WBC (Bld) 9.0 % [facility] Neutrophils (Bld) [#/Vol] 4.11 10*3/uL [facility] Neutrophils/100 WBC (Bld) 72.7 % [facility] Nucleated RBC (Bld) [#/Vol] NINF [facility] Nucleated RBC/100 WBC (Bld) [Ratio] 0.0 % /100 WBC [facility] Platelet mean volume (Bld) [Entitic vol] 9.8 fL 9.0 - 12.7 fL [facility] Platelets (Bld) [#/Vol] 207 10*3/uL [facility] RBC (Bld) [#/Vol] 4.32 10*6/uL 4.20 - 6.0 0 m/uL [facility] WBC (Bld) [#/Vol] 5.66 10*3/uL [facility] Basophils (Bld) [#/Vol] 0.03 10*3/uL Normal <0.11 [facility] Comment on above: Order Comment: Speci men Type: BLOOD SPECIMENOrdering Facility: [facility] Address: [address] [place] [address] Performed By: #### 5 7021-8 ####[facility] LABCLIA [id number] [place] [address] Basophils/100 WBC (Bld) 0.5 % Normal [facility] Comment on above: Order Comment: Speci men Type: BLOOD SPECIMENOrdering Facility: [facility] Address: [address] [place] [address] Performed By: #### 5 7021-8 ####[facility] LABCLIA [id number] [place] [address] Differential cell count method Nom (Bld) Auto Normal [facility] Comment on above: Order Comment: Speci men Type: BLOOD SPECIMENOrdering Facility: [facility] Address: [address] [place] [address] Performed By: #### 5 7021-8 ####[facility] LABCLIA [id number] [place] [address] Eosinophils (Bld) [#/Vol] 0.10 10*3/uL Normal <0.46 [facility] Comment on above: Order Comment: Speci men Type: BLOOD SPECIMENOrdering Facility: [facility] Address: [address] [place] [address] Performed By: #### 5 7021-8 ####[facility] LABCLIA [id number] [place] [address] Eosinophils/100 WBC (Bld) 1.8 % Normal [facility] Comment on above: Order Comment: Speci men Type: BLOOD SPECIMENOrdering Facility: [facility] Address: [address] [place] [address] Performed By: #### 5 7021-8 ####[facility] LABCLIA [id number] [place] [address] Erythrocyte distribution width (RBC) [Ratio] 13.0 % Normal 11.5-15.0 [facility] Comment on above: Order Comment: Speci men Type: BLOOD SPECIMENOrdering Facility: [facility] Address: [address] [place] [address] Performed By: #### 5 7021-8 ####[facility] LABCLIA [id number] [place] [address] Hematocrit (Bld) [Volume fraction] 37.4 % Low 39.0-51.0 [facility] Comment on above: Order Comment: Speci men Type: BLOOD SPECIMENOrdering Facility: [facility] Address: [address] [place] [address] Performed By: #### 5 7021-8 ####[facility] LABCLIA [id number] [place] [address] Hemoglobin (Bld) [Mass/Vol] 13.2 g/dL Normal 13.0-17.0 [facility] Comment on above: Order Comment: Speci men Type: BLOOD SPECIMENOrdering Facility: [facility] Address: [address] [place] [address] Performed By: #### 5 7021-8 ####[facility] LABCLIA [id number] [place] [address] Immature granulocytes (Bld) [#/Vol] 0.03 10*3/uL Normal <0.10 [facility] Comment on above: Order Comment: Speci men Type: BLOOD SPECIMENOrdering Facility: [facility] Address: [address] [place] [address] Performed By: #### 5 7021-8 ####[facility] LABCLIA [id number] [place] [address] Immature granulocytes/100 WBC (Bld) 0.5 % Normal [facility] Comment on above: Order Comment: Speci men Type: BLOOD SPECIMENOrdering Facility: [facility] Address: [address] [place] [address] Performed By: #### 5 7021-8 ####[facility] LABCLIA [id number] [place] [address] Lymphocytes (Bld) [#/Vol] 0.88 10*3/uL Low 1.00-4.00 [facility] Comment on above: Order Comment: Speci men Type: BLOOD SPECIMENOrdering Facility: [facility] Address: [address] [place] [address] Performed By: #### 5 7021-8 ####[facility] LABCLIA [id number] [place] [address] Lymphocytes/100 WBC (Bld) 15.5 % Normal [facility] Comment on above: Order Comment: Speci men Type: BLOOD SPECIMENOrdering Facility: [facility] Address: [address] [place] [address] Performed By: #### 5 7021-8 ####[facility] LABCLIA [id number] [place] [address] MCH (RBC) [Entitic mass] 30.6 pg Normal 26.0-34.0 [facility] Comment on above: Order Comment: Speci men Type: BLOOD SPECIMENOrdering Facility: [facility] Address: [address] [place] [address] Performed By: #### 5 7021-8 ####[facility] LABCLIA [id number] [place] [address] MCHC (RBC) [Mass/Vol] 35.3 g/dL Normal 30.5-36.0 [facility] Comment on above: Order Comment: Speci men Type: BLOOD SPECIMENOrdering Facility: [facility] Address: [address] [place] [address] Performed By: #### 5 7021-8 ####[facility] LABCLIA [id number] [place] [address] MCV (RBC) [Entitic vol] 86.6 fL Normal 80.0-100.0 [facility] Comment on above: Order Comment: Speci men Type: BLOOD SPECIMENOrdering Facility: [facility] Address: [address] [place] [address] Performed By: #### 5 7021-8 ####[facility] LABCLIA [id number] [place] [address] Monocytes (Bld) [#/Vol] 0.51 10*3/uL Normal <0.87 [facility] Comment on above: Order Comment: Speci men Type: BLOOD SPECIMENOrdering Facility: [facility] Address: [address] [place] [address] Performed By: #### 5 7021-8 ####[facility] LABIA [id number] [place] [address] Monocytes/100 WBC (Bld) 9.0 % Normal [facility] Comment on above: Order Comment: Speci men Type: BLOOD SPECIMENOrdering Facility: [facility] Address: [address] [place] [address] Performed By: #### 5 7021-8 ####[facility] LABCLIA [id number] [place] [address] Neutrophils (Bld) [#/Vol] 4.11 10*3/uL Normal 1.45-7.50 [facility] Comment on above: Order Comment: Speci men Type: BLOOD SPECIMENOrdering Facility: [facility] Address: [address] [place] [address] Performed By: #### 5 7021-8 ####[facility] LABCLIA [id number] [place] [address] Neutrophils/100 WBC (Bld) 72.7 % Normal [facility] Comment on above: Order Comment: Speci men Type: BLOOD SPECIMENOrdering Facility: [facility] Address: [address] [place] [address] Performed By: #### 5 7021-8 ####[facility] LABCLIA [id number] [place] [address] Nucleated RBC (Bld) [#/Vol] 10*3/uL Normal <0.01 [facility] Comment on above: Order Comment: Speci men Type: BLOOD SPECIMENOrdering Facility: [facility] Address: [address] [place] [address] Performed By: #### 5 7021-8 ####[facility] LABCLIA [id number] [place] [address] Nucleated RBC/100 WBC (Bld) [Ratio] 0.0 /100 WBC Normal [facility] Comment on above: Order Comment: Speci men Type: BLOOD SPECIMENOrdering Facility: [facility] Address: [address] [place] [address] Performed By: #### 5 7021-8 ####[facility] LABCLIA [id number] [place] [address] Platelet mean volume (Bld) [Entitic vol] 9.8 fL Normal 9.0-12.7 [facility] Comment on above: Order Comment: Speci men Type: BLOOD SPECIMENOrdering Facility: [facility] Address: [address] [place] [address] Performed By: #### 5 7021-8 ####[facility] LABCLIA [id number] [place] [address] Platelets (Bld) [#/Vol] 207 10*3/uL Normal 150-400 [facility] Comment on above: Order Comment: Speci men Type: BLOOD SPECIMENOrdering Facility: [facility] Address: [address] [place] [address] Performed By: #### 5 7021-8 ####[facility] LABCLIA [id number] [place] [address] RBC (Bld) [#/Vol] 4.32 10*6/uL Normal 4.20-6.00 [facility] Comment on above: Order Comment: Speci men Type: BLOOD SPECIMENOrdering Facility: [facility] Address: [address] [place] [address] Performed By: #### 5 7021-8 ####[facility] LABIA [id number] [place] [address] WBC (Bld) [#/Vol] 5.66 10*3/uL Normal 3.70-11.00 [facility] Comment on above: Order Comment: Speci men Type: BLOOD SPECIMENOrdering Facility: [facility] Address: [address] [place] [address] Performed By: #### 5 7021-8 ####[facility] LABIA [id number] [place] [address] GLUCOSE, BLOOD (POC)on 10-14 Glucose [Mass/Vol] 91 mg/dL 74 - 99 mg/dL [facility] Comment on above: Location:[facility], [address] [place] [address] , [place], [place], [address] The Accu-Chek Inform II glucose meter has [...] blood gas instrument) in the above situations. [facility] LD LACTATE DEHYDROOrdered By : Stephanie Abbott on 10-15-2023 LDH [Catalytic activity/Vol] 211 U/L 135 - 225 U/L [facility] Comment on above: Hemolysis present. T he [...] LDH [Catalytic activity/Vol] 211 U/L Normal 135-225 [facility] Comment on above: Order Comment: Speci men Type: BLOOD SPECIMENOrdering Facility: [facility] Address: [address] [place] [address] Result Comment: Hemo lysis present. The origin [...] clinically indicated. Performed By: #### 2 532-0 ####[facility] LABCLIA [id number] [place] [address] LDH [Catalytic activity/Vol] Ordered By: Stephanie Abbott on 10-15-2023 Interpretation and review of laboratory results Normal [facility] NM PET/CT SKULL-THIGH SUBQon 10-15-2023 NM [...] * Radiopharmaceutical Dose: 17.4 mCi * Radiopharmaceutical: Y07-Uimcjaoddyjugcukks (FDG) COMPARISON: FDG PET/CT 06/07/2023 CORRELATION: No relevant imaging available RESULT: REFERENCES: SUV reference values: * Blood pool (descending aorta) activity: SUVmax 3.1 * Background liver activity: SUVmax 3.8; SUVmean 2.8 Signal Constructor (topogram) images: No additional findings. Notes and [...] any questions regarding this interpretation, please call [phone]. If you are unable to reach us at the number above, please feel free to contact [facility] eRadiology at [phone]. [id number] Normal [facility] PET+CT Guidance for localiza tion of tumor of Skull base to mid-thigh-- W 18F-FDG Tammi 10-15-2023 Radiology Study observation (narrative) [facility] Consultation Noteon 08-19-19 24 Consultation Note [id number]#1.00TIFF [facility] CNOVon 08-13-2023 CN Office Visit (RADTSA ) -- JORDAN BENNETT ([id number]) 1975 M Date Time Provider Department 08/13/23 [...] status post right radical orchiectomy, stage IB [id number] After approximately 2 years of surveillance for [...] status post right radical orchiectomy, stage IB [id number] 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 Patient doing very well after recent para-aortic and right hemipelvic radiation. Recommend initial posttreatment imaging with PET scan which be ordered in 2 months. Patient will continue follow-up with medical oncology/Dr. Peters which will be scheduled. Signed by: Dimitry Jasso MD cc: Ashli Grande Last, DO [address] [address] Gavin Arnett, ZAKI 10/15/2023 11:25 AM Signed Addended by: GAVIN REA on: 10/15/2023 11:25 AM Modules accepted: Orders Allergies As of Date: 08/13/2023 Noted Allergy Reaction PENICILLINS 08/23/2021 2 - Rash SHELLFISH CONTAINING PRODUCTS 08/23/2021 14 - Other: See Comments Date Reviewed: 08/13/2023 Reviewed by: Radha Skinner RN - Fully Assessed Reason for Visit: Post Radiation Treatment Follow Up [5362122] Primary Visit Diagnosis:Malignant neoplasm of testicle, unspecified laterality, 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] Order(s):NM PET/CT SKULL-THIGH SUBSEQUENT [9299250] Order #: [id number] FUTURE CBC + DIFF [SQCBCDIF] Order #: [id number] FUTURE LD LACTATE DEHYDRO [SQLD6] Order #: [id number] FUTURE BETA HCG QUANT TUMOR MARKER [SQBHCG] Order #: [id number] FUTURE ALPHA FETOPROTEIN BL [SQAFP] Order #: [id number] FUTURE CBC + DIFF [SQCBCDIF] Order #: [id number] FUT (more content not included)... [facility] Telephone (NCCAP) -- JORDAN BENNETT ([id number]) 1975 M Date Time Provider Department 08/09/23 JORDAN PETERS During your visit today, we recorded the following information about you: Jamie Doll 08/09/2023 9:48 AM Signed Per radiation: Cancel Dr Delacrzu appt for 08/08 - further arrangements will [...] Encounter Status:Closed by JAMIE DOLL on 08/09/23 Normal [facility] CBC W Auto Differential pane l (Bld)on 07-25-2023 Basophils (Bld) [#/Vol] <0.11 k/uL [facility] Basophils/100 WBC (Bld) 0.5 % [facility] Differential cell count method Nom (Bld) Auto [facility] Eosinophils (Bld) [#/Vol] 0.12 10*3/uL <0.46 k/uL [facility] Eosinophils/100 WBC (Bld) 3.1 % [facility] Erythrocyte distribution width (RBC) [Ratio] 12.2 % 11.5 - 15.0 % [facility] Hematocrit (Bld) [Volume fraction] 44.7 % 39.0 - 51.0 % [facility] Hemoglobin (Bld) [Mass/Vol] 15.5 g/dL 13.0 - 17.0 g/dL [facility] Immature granulocytes (Bld) [#/Vol] <0.10 k/uL [facility] Immature granulocytes/100 WBC (Bld) 0.5 % [facility] Lymphocytes (Bld) [#/Vol] 0.54 10*3/uL Low 1.00 - 4.00 k/uL [facility] Lymphocytes/100 WBC (Bld) 14.0 % [facility] MCH (RBC) [Entitic mass] 29.2 pg 26.0 - 34.0 pg [facility] MCHC (RBC) [Mass/Vol] 34.7 g/dL 30.5 - 36.0 g/dL [facility] MCV (RBC) [Entitic vol] 84.2 fL 80.0 - 100.0 fL [facility] Monocytes (Bld) [#/Vol] 0.34 10*3/uL <0.87 k/uL [facility] Monocytes/100 WBC (Bld) 8.8 % [facility] Neutrophils (Bld) [#/Vol] 2.81 10*3/uL 1.45 - 7.50 k/uL [facility] Neutrophils/100 WBC (Bld) 73.1 % [facility] Nucleated RBC (Bld) [#/Vol] <0.01 k/uL [facility] Nucleated RBC/100 WBC (Bld) [Ratio] 0.0 /100 WBC [facility] Platelet mean volume (Bld) [Entitic vol] 10.1 fL 9.0 - 12.7 fL [facility] Platelets (Bld) [#/Vol] 200 10*3/uL 150 - 400 k/uL [facility] RBC (Bld) [#/Vol] 5.31 10*6/uL 4.20 - 6.0 0 m/uL [facility] WBC (Bld) [#/Vol] 3.85 10*3/uL 3.70 - 11.00 k/uL [facility] CBC W Auto Differential pane l (Bld)on 07-18-2023 Basophils (Bld) [#/Vol] 0.04 10*3/uL <0.11 k/uL [facility] Basophils/100 WBC (Bld) 0.6 % [facility] Differential cell count method Nom (Bld) Auto [facility] Eosinophils (Bld) [#/Vol] 0.11 10*3/uL <0.46 k/uL [facility] Eosinophils/100 WBC (Bld) 1.6 % [facility] Erythrocyte distribution width (RBC) [Ratio] 12.2 % 11.5 - 15.0 % [facility] Hematocrit (Bld) [Volume fraction] 46.9 % 39.0 - 51.0 % [facility] Hemoglobin (Bld) [Mass/Vol] 16.3 g/dL 13.0 - 17.0 g/dL [facility] Immature granulocytes (Bld) [#/Vol] <0.10 k/uL [facility] Immature granulocytes/100 WBC (Bld) 0.3 % [facility] Lymphocytes (Bld) [#/Vol] 1.21 10*3/uL 1.00 - 4.00 k/uL [facility] Lymphocytes/100 WBC (Bld) 17.1 % [facility] MCH (RBC) [Entitic mass] 29.4 pg 26.0 - 34.0 pg [facility] MCHC (RBC) [Mass/Vol] 34.8 g/dL 30.5 - 36.0 g/dL [facility] MCV (RBC) [Entitic vol] 84.7 fL 80.0 - 100.0 fL [facility] Monocytes (Bld) [#/Vol] 0.53 10*3/uL <0.87 k/uL [facility] Monocytes/100 WBC (Bld) 7.5 % [facility] Neutrophils (Bld) [#/Vol] 5.16 10*3/uL 1.45 - 7.50 k/uL [facility] Neutrophils/100 WBC (Bld) 72.9 % [facility] Nucleated RBC (Bld) [#/Vol] <0.01 k/uL [facility] Nucleated RBC/100 WBC (Bld) [Ratio] 0.0 /100 WBC [facility] Platelet mean volume (Bld) [Entitic vol] 10.1 fL 9.0 - 12.7 fL [facility] Platelets (Bld) [#/Vol] 247 10*3/uL 150 - 400 k/uL [facility] RBC (Bld) [#/Vol] 5.54 10*6/uL 4.20 - 6.0 0 m/uL [facility] WBC (Bld) [#/Vol] 7.07 10*3/uL 3.70 - 11.00 k/uL [facility] Consultation Noteon 07-05-19 Consultation Note [id number]#1.00TIFF Normal [facility] Consultation Note [id number]#[id number] Normal [facility] PET+CT Guidance for localiza tion of [...] any questions regarding this interpretation, please call [phone]. If you are unable to reach us at the number above, please feel free to contact [facility] eRadiology at [phone]. DIVISION OF RADIOLOGY * * *Final Report* [...] SKELETON: There are no hypermetabolic osseous lesions. Signal Constructor (topogram) images:No additional findings DIVISION OF RADIOLOGY Provider, [facility] - 06/10/2023 * * *Final Report* * [...] SKELETON: There are no hypermetabolic osseous lesions. Signal Constructor (topogram) images:No additional findings IMPRESSION IMPRESSION: 1. [...] any questions regarding this interpretation, please call [phone]. If you are unable to reach us at the number above, please feel free to contact [facility] eRadiology at [phone]. [facility] PET+CT Guidance for localiza tion of tumor of Skull base to mid-thigh-- W 18F-FDG IVOrdered By: Ccf Provider on 06-10-2023 [facility] GLUCOSE, BLOOD (POC)on 06-07 Glucose [Mass/Vol] 90 mg/dL 74 - 99 mg/dL [facility] Comment on above: Location:[facility], [address] [place] [address] , [place], [place], [address] The Accu-Chek Inform II glucose meter has [...] blood gas instrument) in the above situations. [facility] PET+CT Guidance for localiza tion of tumor of Skull base to mid-thigh-- W 18F-FDG Tammi 06-07-2023 Radiology Study observation (narrative) [facility] Consultation Noteon 05-24-20 Consultation Note [id number]#1.00TIFF Normal [facility] BETA HCG QUANT TUMOR MARKERo n 05-20-2023 HCG.beta subunit Qn m[IU]/mL [facility] Comment on above: INTERPRETIVE INFORMA TION: Beta [...] reference intervals for this test in the [facility] Test Directory (Hitwise). This test was developed and its performance characteristics determined by [facility]. It has not been cleared or approved by the [place] Food and Drug Administration. This test was performed in a CLIA certified laboratory and is intended for clinical purposes. Performed By: [facility] [address] [place] [address] [employer]: Cam Archibald MD, PhD CLIA Number: [id number] CT Abdomen and Pelvis W cont rast Tammi 05-20-2023 IMPRESSION: 1. Interval increase in size [...] any questions regarding this interpretation, please call [phone]. If you are unable to reach us at the number above, please feel free to contact [facility] at [phone]. DIVISION OF RADIOLOGY * * *Final Report* * * DATE OF EXAM: May 17 2023 11:12AM [facility] 0530 - CT ABD/PEL W IVCON [...] chest CT performed will be reported separately. Signal Constructor (topogram) images: No additional findings. DIVISION OF RADIOLOGY Provider, [facility] - 05/20/2023 * * *Final Report* * * DATE OF EXAM: May 17 2023 11:12AM [facility] 0530 - CT ABD/PEL W IVCON [...] chest CT performed will be reported separately. Signal Constructor (topogram) images: No additional findings. IMPRESSION IMPRESSION: [...] any questions regarding this interpretation, please call [phone]. If you are unable to reach us at the number above, please feel free to contact [facility] eRadiology at [phone]. [facility] CT Abdomen and Pelvis W cont rast IVOrdered By: Ccf Provider on 05-20-[address] [facility] [address] Chest W contrast Tammi IMPRESSION: 1. [...] any questions regarding this interpretation, please call [phone]. If you are unable to reach us at the number above, please feel free to contact [facility] eRadiology at [phone]. DIVISION OF RADIOLOGY * * *Final Report* * * DATE OF EXAM: May 17 2023 11:12AM [facility] 0539 - CT CHEST W IVCON [...] was performed concurrently and is reported separately. Signal Constructor (topogram) images: No additional findings. DIVISION OF RADIOLOGY Provider, [facility] - 05/20/2023 * * *Final Report* * * DATE OF EXAM: May 17 2023 11:12AM [facility] 0539 - CT CHEST W IVCON [...] was performed concurrently and is reported separately. Signal Constructor (topogram) images: No additional findings. IMPRESSION IMPRESSION: [...] any questions regarding this interpretation, please call [phone]. If you are unable to reach us at the number above, please feel free to contact [facility] eRadiology at [phone]. [facility] HCG.beta subunit Qnon 2022 [facility] AFP [Mass/Vol]Ordered By: Gale Harkins on 05-17-2023 Interpretation and review of laboratory results Normal [facility] Result rechecked. [facility] ALPHA FETOPROTEIN BLOrdered By: Nely Harkins on 05-17-2023 AFP [Mass/Vol] ng/mL NINF - 11.0 ng/mL [facility] Comment on above: The test is typicall [...] (Bld)on 05-17-2023 Basophils (Bld) [#/Vol] 0.06 10*3/uL [facility] Basophils/100 WBC (Bld) 0.8 % [facility] Differential cell count method Nom (Bld) Auto [facility] Eosinophils (Bld) [#/Vol] 0.21 10*3/uL [facility] Eosinophils/100 WBC (Bld) 2.7 % [facility] Erythrocyte distribution width (RBC) [Ratio] 12.9 % 11.5 - 15.0 % [facility] Hematocrit (Bld) [Volume fraction] 43.7 % 39.0 - 51.0 % [facility] Hemoglobin (Bld) [Mass/Vol] 15.2 g/dL 13.0 - 17.0 g/dL [facility] Immature granulocytes (Bld) [#/Vol] 0.03 10*3/uL [facility] Immature granulocytes/100 WBC (Bld) 0.4 % [facility] Lymphocytes (Bld) [#/Vol] 2.37 10*3/uL [facility] Lymphocytes/100 WBC (Bld) 30.9 % [facility] MCH (RBC) [Entitic mass] 29.5 pg 26.0 - 34.0 pg [facility] MCHC (RBC) [Mass/Vol] 34.8 g/dL 30.5 - 36.0 g/dL [facility] MCV (RBC) [Entitic vol] 84.7 fL 80.0 - 100.0 fL [facility] Monocytes (Bld) [#/Vol] 0.53 10*3/uL [facility] Monocytes/100 WBC (Bld) 6.9 % [facility] Neutrophils (Bld) [#/Vol] 4.46 10*3/uL [facility] Neutrophils/100 WBC (Bld) 58.3 % [facility] Nucleated RBC (Bld) [#/Vol] NINF [facility] Nucleated RBC/100 WBC (Bld) [Ratio] 0.0 % /100 WBC [facility] Platelet mean volume (Bld) [Entitic vol] 10.4 fL 9.0 - 12.7 fL [facility] Platelets (Bld) [#/Vol] 252 10*3/uL [facility] RBC (Bld) [#/Vol] 5.16 10*6/uL 4.20 - 6.0 0 m/uL [facility] WBC (Bld) [#/Vol] 7.66 10*3/uL [facility] Comprehensive metabolic 2000 panelon 05-17-2023 Albumin [Mass/Vol] 4.5 g/dL 3.9 - 4.9 g/dL [facility] ALP [Catalytic activity/Vol] 65 U/L 38 - 113 U/L [facility] ALT [Catalytic activity/Vol] 17 U/L 10 - 54 U/L [facility] Anion gap [Moles/Vol] 10 mmol/L 9 - 18 mmol/L [facility] AST [Catalytic activity/Vol] 17 U/L 14 - 40 U/L [facility] Bilirubin [Mass/Vol] 0.5 mg/dL 0.2 - 1 .3 mg/dL [facility] Calcium [Mass/Vol] 9.5 mg/dL 8.5 - 10. 2 mg/dL [facility] Chloride [Moles/Vol] 106 mmol/L High 97 - 10 5 mmol/L [facility] CO2 [Moles/Vol] 24 mmol/L 22 - 30 mmol/L [facility] Creatinine [Mass/Vol] 0.95 mg/dL 0.73 - 1.22 mg/dL [facility] GFR/1.73 sq M.predicted among non-blacks MDRD (S/P/Bld) [Vol rate/Area] 98 mL/min/{1.73_m2} - PINF [facility] Comment on above: Estimated Glomerular Filtration Rate (eGFR) is calculated using the 202 CKD-EPI creatinine equation. This equation utilizes serum creatinine, sex, and age as parameters. The creatinine assay has traceable calibration to isotope dilution-mass spectrometry. Refer to KDIGO guidelines for clinical interpretation. In patients with unstable renal function, e.g. those with acute kidney injury, the eGFR may not accurately reflect actual GFR. Glucose [Mass/Vol] 103 mg/dL High 74 - 99 mg/dL [facility] Comment on above: The [place] Di[employer] Association (ADA) provides guidance for [...] Standards of Medical Care in Diabetes 2016, [place] [employer]. Diabetes Care. 2016.39(Suppl 1). Interpretation and review of laboratory results Abnormal [facility] Potassium [Moles/Vol] 4.1 mmol/L 3.7 - 5.1 mmol/L [facility] Protein [Mass/Vol] 7.1 g/dL 6.3 - 8.0 g/dL [facility] Sodium [Moles/Vol] 140 mmol/L 136 - 144 mmol/L [facility] Urea nitrogen [Mass/Vol] 22 mg/dL 9 - 24 mg/dL [facility] LD LACTATE DEHYDROOrdered By : Umu Negro on 05-17-2023 LDH [Catalytic activity/Vol] 211 U/L 135 - 225 U/L [facility] Comment on above: Hemolysis present. T he origin of the hemolysis, in vitro versus an in vivo hemolytic process, cannot be distinguished via this assay alone. In vitro hemolysis may lead to non-physiological (spurious) elevation in lactate dehydrogenase (LDH) results. The result should be interpreted in context of the clinical setting and other test results. Suggest reorder as clinically indicated. LDH [Catalytic activity/Vol] Ordered By: Umu Negro on 05-17-2023 Interpretation and review of laboratory results Normal [facility] No Panel Informationon 05-17 Radiology Study observation (narrative) [facility] BETA HCG QUANT TUMOR MARKERo n 11-03-2022 HCG.beta subunit Qn m[IU]/mL [facility] Comment on above: INTERPRETIVE INFORMA TION: Beta [...] reference intervals for this test in the [facility] Test Directory (Hitwise). This test was developed and its performance characteristics determined by [facility]. It has not been cleared or approved by the [place] Food and Drug Administration. This test was performed in a CLIA certified laboratory and is intended for clinical purposes. Performed By: [facility] [address] [place] [id number] [employer]: Cam Archibald MD, PhD HCG.beta subunit Qnon 2022 [facility] AFP [Mass/Vol]Ordered By: Esvin Cervantes on 11-01-2022 Interpretation and review of laboratory results Normal [facility] ALPHA FETOPROTEIN BLOrdered By: Franky Cervantes on 11-01-2022 AFP [Mass/Vol] ng/mL NINF - 11.0 ng/mL [facility] Comment on above: Result rechecked. The test [...] Alpha-Fetoprotein test was performed using the Siemens AccessPayaur XP chemiluminometric immunoassay method. Results obtained with [...] any questions regarding this interpretation, please call [phone]. If you are unable to reach us at the number above, please feel free to contact [facility] at [phone]. DIVISION OF RADIOLOGY * * *Final Report* * * DATE OF EXAM: Oct 31 2022 2:00PM [facility] 0530 - CT ABD/PEL W IVCON [...] chest CT performed will be reported separately. Signal Constructor (topogram) images: No additional findings. DIVISION OF RADIOLOGY Provider, [facility] - 11/01/2022 * * *Final Report* * * DATE OF EXAM: Oct 31 2022 2:00PM [facility] 0530 - CT ABD/PEL W IVCON [...] chest CT performed will be reported separately. Signal Constructor (topogram) images: No additional findings. IMPRESSION IMPRESSION: [...] any questions regarding this interpretation, please call [phone]. If you are unable to reach us at the number above, please feel free to contact [facility] at [phone]. [facility] CT Abdomen and Pelvis W cont rast IVOrdered By: Ccf Provider on 11-01-20[address] [facility] [address] Chest W contrast Tammi IMPRESSION: 1. [...] any questions regarding this interpretation, please call [phone]. If you are unable to reach us at the number above, please feel free to contact [facility] at [phone]. DIVISION OF RADIOLOGY * * *Final Report* * * DATE OF EXAM: Oct 31 2022 2:00PM [facility] 0539 - CT CHEST W IVCON [...] was performed concurrently and is reported separately. Signal Constructor (topogram) images: No additional findings. DIVISION OF RADIOLOGY Provider, [facility] - 11/01/2022 * * *Final Report* * * DATE OF EXAM: Oct 31 2022 2:00PM [facility] 0539 - CT CHEST W IVCON [...] was performed concurrently and is reported separately. Signal Constructor (topogram) images: No additional findings. IMPRESSION IMPRESSION: [...] any questions regarding this interpretation, please call [phone]. If you are unable to reach us at the number above, please feel free to contact [facility] at [phone]. [facility] Basic metabolic 2000 panelOr dered By: Chace Morataya on 10-31-2022 Anion gap [Moles/Vol] 12 mmol/L 9 - 18 mmol/L [facility] Calcium [Mass/Vol] 9.7 mg/dL 8.5 - 10. 2 mg/dL [facility] Chloride [Moles/Vol] 102 mmol/L 97 - 10 5 mmol/L [facility] CO2 [Moles/Vol] 24 mmol/L 22 - 30 mmol/L [facility] Creatinine [Mass/Vol] 0.89 mg/dL 0.73 - 1.22 mg/dL [facility] GFR/1.73 sq M.predicted among non-blacks MDRD (S/P/Bld) [Vol rate/Area] 106 mL/min/{1.73_m2} - PINF [facility] Comment on above: Estimated Glomerular Filtration Rate [...] [Mass/Vol] 90 mg/dL 74 - 99 mg/dL [facility] Comment on above: The [place] Di[employer] Association (ADA) provides guidance for [...] Standards of Medical Care in Diabetes 2016, [place] [employer]. Diabetes Care. 2016.39(Suppl 1). Interpretation and review of laboratory results Normal [facility] Potassium [Moles/Vol] 3.9 mmol/L 3.7 - 5.1 mmol/L [facility] Sodium [Moles/Vol] 138 mmol/L 136 - 144 mmol/L [facility] Urea nitrogen [Mass/Vol] 16 mg/dL 9 - 24 mg/dL [facility] CBC W Auto Differential pane l (Bld)on 10-31-2022 Basophils (Bld) [#/Vol] 0.06 10*3/uL [facility] Basophils/100 WBC (Bld) 0.7 % [facility] Differential cell count method Nom (Bld) Auto [facility] Eosinophils (Bld) [#/Vol] 0.14 10*3/uL [facility] Eosinophils/100 WBC (Bld) 1.6 % [facility] Erythrocyte distribution width (RBC) [Ratio] 12.4 % 11.5 - 15.0 % [facility] Hematocrit (Bld) [Volume fraction] 44.1 % 39.0 - 51.0 % [facility] Hemoglobin (Bld) [Mass/Vol] 15.2 g/dL 13.0 - 17.0 g/dL [facility] Immature granulocytes (Bld) [#/Vol] 0.03 10*3/uL [facility] Immature granulocytes/100 WBC (Bld) 0.4 % [facility] Lymphocytes (Bld) [#/Vol] 2.30 10*3/uL [facility] Lymphocytes/100 WBC (Bld) 27.0 % [facility] MCH (RBC) [Entitic mass] 29.3 pg 26.0 - 34.0 pg [facility] MCHC (RBC) [Mass/Vol] 34.5 g/dL 30.5 - 36.0 g/dL [facility] MCV (RBC) [Entitic vol] 85.0 fL 80.0 - 100.0 fL [facility] Monocytes (Bld) [#/Vol] 0.52 10*3/uL [facility] Monocytes/100 WBC (Bld) 6.1 % [facility] Neutrophils (Bld) [#/Vol] 5.48 10*3/uL [facility] Neutrophils/100 WBC (Bld) 64.2 % [facility] Nucleated RBC (Bld) [#/Vol] [facility] Nucleated RBC/100 WBC (Bld) [Ratio] 0.0 % /100 WBC [facility] Platelet mean volume (Bld) [Entitic vol] 10.8 fL 9.0 - 12.7 fL [facility] Platelets (Bld) [#/Vol] 264 10*3/uL [facility] RBC (Bld) [#/Vol] 5.19 10*6/uL 4.20 - 6.0 0 m/uL [facility] WBC (Bld) [#/Vol] 8.53 10*3/uL [facility] LD LACTATE DEHYDROon 023 LDH [Catalytic activity/Vol] 175 U/L 135 - 225 U/L [facility] Comment on above: Hemolysis present. T he [...] Interpretation and review of laboratory results Normal [facility] No Panel Informationon 10-31 Radiology Study observation (narrative) [facility] ALPHA FETOPROTEIN BLon 07-10 AFP [Mass/Vol] <11.0 ng/mL [facility] CBC W Auto Differential pane l (Bld)on 07-09-2022 Basophils (Bld) [#/Vol] 0.08 10*3/uL <0.11 k/uL [facility] Basophils/100 WBC (Bld) 0.8 % [facility] Differential cell count method Nom (Bld) Auto [facility] Eosinophils (Bld) [#/Vol] 0.21 10*3/uL <0.46 k/uL [facility] Eosinophils/100 WBC (Bld) 2.0 % [facility] Erythrocyte distribution width (RBC) [Ratio] 12.6 % 11.5 - 15.0 % [facility] Hematocrit (Bld) [Volume fraction] 43.3 % 39.0 - 51.0 % [facility] Hemoglobin (Bld) [Mass/Vol] 15.1 g/dL 13.0 - 17.0 g/dL [facility] Immature granulocytes (Bld) [#/Vol] 0.04 10*3/uL <0.10 k/uL [facility] Immature granulocytes/100 WBC (Bld) 0.4 % [facility] Lymphocytes (Bld) [#/Vol] 2.69 10*3/uL 1.00 - 4.00 k/uL [facility] Lymphocytes/100 WBC (Bld) 25.5 % [facility] MCH (RBC) [Entitic mass] 29.5 pg 26.0 - 34.0 pg [facility] MCHC (RBC) [Mass/Vol] 34.9 g/dL 30.5 - 36.0 g/dL [facility] MCV (RBC) [Entitic vol] 84.7 fL 80.0 - 100.0 fL [facility] Monocytes (Bld) [#/Vol] 0.73 10*3/uL <0.87 k/uL [facility] Monocytes/100 WBC (Bld) 6.9 % [facility] Neutrophils (Bld) [#/Vol] 6.79 10*3/uL 1.45 - 7.50 k/uL [facility] Neutrophils/100 WBC (Bld) 64.4 % [facility] Nucleated RBC (Bld) [#/Vol] <0.01 k/uL [facility] Nucleated RBC/100 WBC (Bld) [Ratio] 0.0 /100 WBC [facility] Platelet mean volume (Bld) [Entitic vol] 9.9 fL 9.0 - 12.7 fL [facility] Platelets (Bld) [#/Vol] 250 10*3/uL 150 - 400 k/uL [facility] RBC (Bld) [#/Vol] 5.11 10*6/uL 4.20 - 6.0 0 m/uL [facility] WBC (Bld) [#/Vol] 10.54 10*3/uL 3.70 - 11.00 k/uL [facility] Comprehensive metabolic 2000 panelon 07-09-2022 Albumin [Mass/Vol] 4.6 g/dL 3.9 - 4.9 g/dL [facility] ALP [Catalytic activity/Vol] 66 U/L 38 - 113 U/L [facility] ALT [Catalytic activity/Vol] 18 U/L 10 - 54 U/L [facility] Anion gap [Moles/Vol] 12 mmol/L 9 - 18 mmol/L [facility] AST [Catalytic activity/Vol] 16 U/L 14 - 40 U/L [facility] Bilirubin [Mass/Vol] 0.2 mg/dL 0.2 - 1 .3 mg/dL [facility] Calcium [Mass/Vol] 9.2 mg/dL 8.5 - 10. 2 mg/dL [facility] Chloride [Moles/Vol] 102 mmol/L 97 - 10 5 mmol/L [facility] CO2 [Moles/Vol] 23 mmol/L 22 - 30 mmol/L [facility] Creatinine [Mass/Vol] 1.06 mg/dL 0.73 - 1.22 mg/dL [facility] Estimated Glomerular Filtration Rate 87 mL/min/1.73m >=60 mL/min/1.73 m [facility] Glucose [Mass/Vol] 124 mg/dL High 74 - 99 mg/dL [facility] Potassium [Moles/Vol] 3.8 mmol/L 3.7 - 5.1 mmol/L [facility] Protein [Mass/Vol] 7.1 g/dL 6.3 - 8.0 g/dL [facility] Sodium [Moles/Vol] 137 mmol/L 136 - 144 mmol/L [facility] Urea nitrogen [Mass/Vol] 23 mg/dL 9 - 24 mg/dL [facility] LD LACTATE DEHYDROon 07-09- 023 LDH [Catalytic activity/Vol] 185 U/L 135 - 225 U/L [facility] CT Abdomen and Pelvis W cont [...] any questions regarding this interpretation, please call [phone]. If you are unable to reach us at the number above, please feel free to contact [facility] at [phone]. DIVISION OF RADIOLOGY * * *Final Report* * * DATE OF EXAM: Apr 03 2022 2:53PM [facility] 0530 - CT ABD/PEL W IVCON [...] chest CT performed will be reported separately. Signal Constructor (topogram) images: No additional findings. DIVISION OF RADIOLOGY Provider, [facility] - 04/04/2022 * * *Final Report* * * DATE OF EXAM: Apr 03 2022 2:53PM [facility] 0530 - CT ABD/PEL W IVCON [...] chest CT performed will be reported separately. Signal Constructor (topogram) images: No additional findings. IMPRESSION IMPRESSION: [...] any questions regarding this interpretation, please call [phone]. If you are unable to reach us at the number above, please feel free to contact [facility] at [phone]. [facility] CT Chest W contrast Tammi IMPRESSION: 1. [...] any questions regarding this interpretation, please call [phone]. If you are unable to reach us at the number above, please feel free to contact [facility] at [phone]. DIVISION OF RADIOLOGY * * *Final Report* * * DATE OF EXAM: Apr 03 2022 2:53PM [facility] 0539 - CT CHEST W IVCON [...] CT scan report for the abdomen findings. Signal Constructor (topogram) images: No additional findings. DIVISION OF RADIOLOGY Provider, [facility] - 04/04/2022 * * *Final Report* * * DATE OF EXAM: Apr 03 2022 2:53PM [facility] 0539 - CT CHEST W IVCON [...] CT scan report for the abdomen findings. Signal Constructor (topogram) images: No additional findings. IMPRESSION IMPRESSION: [...] any questions regarding this interpretation, please call [phone]. If you are unable to reach us at the number above, please feel free to contact [facility]iology at [phone]. [facility] No Panel InformationOrdered By: Ccf Provider on 04-04-2022 [facility] CBC W Auto Differential pane l (Bld)on 04-03-2022 Basophils (Bld) [#/Vol] 0.07 10*3/uL [facility] Basophils/100 WBC (Bld) 0.7 % [facility] Differential cell count method Nom (Bld) Auto [facility] Eosinophils (Bld) [#/Vol] 0.15 10*3/uL [facility] Eosinophils/100 WBC (Bld) 1.5 % [facility] Erythrocyte distribution width (RBC) [Ratio] 12.8 % 11.5 - 15.0 % [facility] Hematocrit (Bld) [Volume fraction] 43.5 % 39.0 - 51.0 % [facility] Hemoglobin (Bld) [Mass/Vol] 15.0 g/dL 13.0 - 17.0 g/dL [facility] Immature granulocytes (Bld) [#/Vol] 0.03 10*3/uL [facility] Immature granulocytes/100 WBC (Bld) 0.3 % [facility] Lymphocytes (Bld) [#/Vol] 2.39 10*3/uL [facility] Lymphocytes/100 WBC (Bld) 23.7 % [facility] MCH (RBC) [Entitic mass] 29.2 pg 26.0 - 34.0 pg [facility] MCHC (RBC) [Mass/Vol] 34.5 g/dL 30.5 - 36.0 g/dL [facility] MCV (RBC) [Entitic vol] 84.6 fL 80.0 - 100.0 fL [facility] Monocytes (Bld) [#/Vol] 0.61 10*3/uL [facility] Monocytes/100 WBC (Bld) 6.0 % [facility] Neutrophils (Bld) [#/Vol] 6.85 10*3/uL [facility] Neutrophils/100 WBC (Bld) 67.8 % [facility] Nucleated RBC (Bld) [#/Vol] [facility] Nucleated RBC/100 WBC (Bld) [Ratio] 0.0 % /100 WBC [facility] Platelet mean volume (Bld) [Entitic vol] 10.3 fL 9.0 - 12.7 fL [facility] Platelets (Bld) [#/Vol] 271 10*3/uL [facility] RBC (Bld) [#/Vol] 5.14 10*6/uL 4.20 - 6.0 0 m/uL [facility] WBC (Bld) [#/Vol] 10.10 10*3/uL [facility] This is an appended report. These results have been appended to a previously verified report. [facility] Comprehensive metabolic 2000 panelOrdered By: Stephanie Abbott on 04-03-2022 Albumin [Mass/Vol] 4.3 g/dL 3.9 - 4.9 g/dL [facility] ALP [Catalytic activity/Vol] 64 U/L 38 - 113 U/L [facility] ALT [Catalytic activity/Vol] 18 U/L 10 - 54 U/L [facility] Anion gap [Moles/Vol] 11 mmol/L 9 - 18 mmol/L [facility] AST [Catalytic activity/Vol] 16 U/L 14 - 40 U/L [facility] Bilirubin [Mass/Vol] 0.4 mg/dL 0.2 - 1 .3 mg/dL [facility] Calcium [Mass/Vol] 9.3 mg/dL 8.5 - 10. 2 mg/dL [facility] Chloride [Moles/Vol] 102 mmol/L 97 - 10 5 mmol/L [facility] CO2 [Moles/Vol] 24 mmol/L 22 - 30 mmol/L [facility] Creatinine [Mass/Vol] 0.88 mg/dL 0.73 - 1.22 mg/dL [facility] GFR/1.73 sq M.predicted among non-blacks MDRD (S/P/Bld) [Vol rate/Area] 107 mL/min/{1.73_m2} - PINF [facility] Comment on above: Estimated Glomerular Filtration Rate [...] [Mass/Vol] 92 mg/dL 74 - 99 mg/dL [facility] Comment on above: The [place] Di[employer] (ADA) provides guidance for [...] Standards of Medical Care in Diabetes 2016, [place] [employer]. Diabetes Care. 2016.39(Suppl 1). Interpretation and review of laboratory results Normal [facility] Potassium [Moles/Vol] 3.8 mmol/L 3.7 - 5.1 mmol/L [facility] Protein [Mass/Vol] 6.9 g/dL 6.3 - 8.0 g/dL [facility] Sodium [Moles/Vol] 137 mmol/L 136 - 144 mmol/L [facility] Urea nitrogen [Mass/Vol] 16 mg/dL 9 - 24 mg/dL [facility] LD LACTATE DEHYDROon 022 LDH [Catalytic activity/Vol] 186 U/L 135 - 225 U/L [facility] Comment on above: Hemolysis present. T he [...] Interpretation and review of laboratory results Normal [facility] No Panel Informationon 04-03 Radiology Study observation (narrative) [facility] BETA HCG QUANT TUMOR MARKERo n 09-21-2021 HCG.beta subunit Qn m[IU]/mL [facility] Comment on above: INTERPRETIVE INFORMA TION: Beta [...] reference intervals for this test in the [facility] Test Directory (Hitwise). This test was developed and its performance characteristics determined by [facility]. It has not been cleared or approved by the US Food and Drug Administration. This test was performed in a CLIA certified laboratory and is intended for clinical purposes. Performed By: [facility] [address] [place] [id number] [employer]: Skylar Sloan MD HCG.beta subunit Qnon 2021 [facility] AFP [Mass/Vol]Ordered By: Avani Ziegler on 09-20-2021 Interpretation and review of laboratory results Normal [facility] ALPHA FETOPROTEIN BLOrdered By: Kinsey Ziegler on 09-20-2021 AFP [Mass/Vol] ng/mL [facility] - 11.0 ng/mL [facility] Comment on above: Result rechecked. The test [...] (Bld)on 09-19-2021 Basophils (Bld) [#/Vol] 0.05 10*3/uL [facility] Basophils/100 WBC (Bld) 0.5 % [facility] Differential cell count method Nom (Bld) Auto [facility] Eosinophils (Bld) [#/Vol] 0.18 10*3/uL [facility] Eosinophils/100 WBC (Bld) 1.7 % [facility] Erythrocyte distribution width (RBC) [Ratio] 12.9 % 11.5 - 15.0 % [facility] Hematocrit (Bld) [Volume fraction] 43.5 % 39.0 - 51.0 % [facility] Hemoglobin (Bld) [Mass/Vol] 14.8 g/dL 13.0 - 17.0 g/dL [facility] Immature granulocytes (Bld) [#/Vol] 0.06 10*3/uL [facility] Immature granulocytes/100 WBC (Bld) 0.6 % [facility] Lymphocytes (Bld) [#/Vol] 2.81 10*3/uL [facility] Lymphocytes/100 WBC (Bld) 26.5 % [facility] MCH (RBC) [Entitic mass] 28.6 pg 26.0 - 34.0 pg [facility] MCHC (RBC) [Mass/Vol] 34.0 g/dL 30.5 - 36.0 g/dL [facility] MCV (RBC) [Entitic vol] 84.1 fL 80.0 - 100.0 fL [facility] Monocytes (Bld) [#/Vol] 0.61 10*3/uL [facility] Monocytes/100 WBC (Bld) 5.7 % [facility] Neutrophils (Bld) [#/Vol] 6.90 10*3/uL [facility] Neutrophils/100 WBC (Bld) 65.0 % [facility] Nucleated RBC (Bld) [#/Vol] BANNERF [facility] Nucleated RBC/100 WBC (Bld) [Ratio] 0.0 % /100 WBC [facility] Platelet mean volume (Bld) [Entitic vol] 9.9 fL 9.0 - 12.7 fL [facility] Platelets (Bld) [#/Vol] 278 10*3/uL [facility] RBC (Bld) [#/Vol] 5.17 10*6/uL 4.20 - 6.0 0 m/uL [facility] WBC (Bld) [#/Vol] 10.61 10*3/uL [facility] This is an appended report. These results have been appended to a previously verified report. [facility] CT Abdomen and Pelvis W cont [...] any questions regarding this interpretation, please call [phone]. If you are unable to reach us at the number above, please feel free to contact [facility] at [phone]. DIVISION OF RADIOLOGY * * *Final Report* * * DATE OF EXAM: Sep 19 2021 3:24PM [facility] 0530 - CT ABD/PEL W IVCON [...] chest CT performed will be reported separately. Signal Constructor (topogram) images: No additional findings. DIVISION OF RADIOLOGY Provider, [facility] - 09/19/2021 * * *Final Report* * * DATE OF EXAM: Sep 19 2021 3:24PM [facility] 0530 - CT ABD/PEL W IVCON [...] chest CT performed will be reported separately. Signal Constructor (topogram) images: No additional findings. IMPRESSION IMPRESSION: [...] any questions regarding this interpretation, please call [phone]. If you are unable to reach us at the number above, please feel free to contact [facility]iology at [phone]. [facility] CT Abdomen and Pelvis W cont rast IVOrdered By: [facility]cf Provider on 09-19-2021 [facility] CT Chest W contrast Tammi IMPRESSION: [...] any questions regarding this interpretation, please call [phone]. If you are unable to reach us at the number above, please feel free to contact [facility]iology at [phone]. DIVISION OF RADIOLOGY * * *Final Report* * * DATE OF EXAM: Sep 19 2021 3:24PM [facility] 0539 - CT CHEST W IVCON [...] was performed concurrently and is reported separately. Signal Constructor (topogram) images: No additional findings. DIVISION OF RADIOLOGY Provider, [facility] - 09/19/2021 * * *Final Report* * * DATE OF EXAM: Sep 19 2021 3:24PM [facility] 0539 - CT CHEST W IVCON [...] was performed concurrently and is reported separately. Signal Constructor (topogram) images: No additional findings. IMPRESSION IMPRESSION: [...] any questions regarding this interpretation, please call [phone]. If you are unable to reach us at the number above, please feel free to contact [facility]Radiology at [phone]. [facility] metabolic 2000 panelOrdered By: Chace Morataya on 09-19-2021 Albumin [Mass/Vol] 4.5 g/dL 3.9 - 4.9 g/dL [facility] ALP [Catalytic activity/Vol] 62 U/L 38 - 113 U/L [facility] ALT [Catalytic activity/Vol] 23 U/L 10 - 54 U/L [facility] Anion gap [Moles/Vol] 10 mmol/L 9 - 18 mmol/L [facility] AST [Catalytic activity/Vol] 15 U/L 14 - 40 U/L [facility] Bilirubin [Mass/Vol] 0.2 mg/dL 0.2 - 1 .3 mg/dL [facility] Calcium [Mass/Vol] 9.5 mg/dL 8.5 - 10. 2 mg/dL [facility] Chloride [Moles/Vol] 102 mmol/L 97 - 10 5 mmol/L [facility] CO2 [Moles/Vol] 25 mmol/L 22 - 30 mmol/L [facility] Creatinine [Mass/Vol] 0.84 mg/dL 0.73 - 1.22 mg/dL [facility] GFR/1.73 sq M.predicted among non-blacks MDRD (S/P/Bld) [Vol rate/Area] 108 mL/min/{1.73_m2} - PINF [facility] Comment on above: Estimated Glomerular Filtration Rate [...] [Mass/Vol] 93 mg/dL 74 - 99 mg/dL [facility] Comment on above: The [place] Di[employer] Association (ADA) provides guidance for [...] Standards of Medical Care in Diabetes 2016, [place] [employer]. Diabetes Care. 2016.39(Suppl 1). Interpretation and review of laboratory results Normal [facility] Potassium [Moles/Vol] 3.9 mmol/L 3.7 - 5.1 mmol/L [facility] Protein [Mass/Vol] 7.1 g/dL 6.3 - 8.0 g/dL [facility] Sodium [Moles/Vol] 137 mmol/L 136 - 144 mmol/L [facility] Urea nitrogen [Mass/Vol] 20 mg/dL 9 - 24 mg/dL [facility] LD LACTATE DEHYDROon 022 LDH [Catalytic activity/Vol] 178 U/L 135 - 225 U/L [facility] LDH [Catalytic activity/Vol] on 09-19-2021 Interpretation and review of laboratory results Normal [facility] No Panel Informationon 09-19 Radiology Study observation (narrative) [facility] CBC AUTO DIFFon 08-17-2021 BASO # 0.0 103/ul Normal 0.0-0.1 [facility] Comment on above: Performed By: #### C BC #### [facility] [address] [place] [address] Dr. Nehemias Leal Basophils/100 WBC (Bld) 0.5 % Normal 0.2-2.0 [facility] Comment on above: Performed By: #### C BC #### [facility] [address] [place] [address] Dr. Nehemias Leal EO # 0.2 103/ul Normal 0.0-0.7 [facility] Comment on above: Performed By: #### C BC #### [facility] [address] [place] [address] Dr. Nehemias Lela Eosinophils/100 WBC (Bld) 2.8 % Normal 0.9-7.0 [facility] Comment on above: Performed By: #### C BC #### [facility] [address] [place] [address] Dr. Nehemias Leal Erythrocyte distribution width (RBC) [Ratio] 12.7 % Normal 11.0-15.0 [facility] Comment on above: Performed By: #### C BC #### [facility] [address] [place] [address] Dr. Nehemias Leal Hematocrit (Bld) [Volume fraction] 44.8 % Normal 42.0-54.0 [facility] Comment on above: Performed By: #### C BC #### [facility] [address] [place] [address] Dr. Nehemias Leal Hemoglobin (Bld) [Mass/Vol] 15.3 g/dL Normal 14.0-18.0 [facility] Comment on above: Performed By: #### C BC #### [facility] [address] [place] [address] Dr. Nehemias Leal IG # 0.03 10e3/ul Normal 0.00-0.03 [facility] Comment on above: Performed By: #### C BC #### [facility] [address] [place] [address] Dr. Nehemias Leal IG % 0.4 % Normal 0.0-0.5 [facility] Comment on above: Performed By: #### C BC #### [facility] [address] [place] [address] Dr. Nehemias Leal LYMPH # 2.7 103/ul Normal 1.2-3.8 [facility] Comment on above: Performed By: #### C BC #### [facility] [address] [place] [address] Dr. Nehemias Leal Lymphocytes/100 WBC (Bld) 33.6 % Normal 20.5-60.0 [facility] Comment on above: Performed By: #### C BC #### [facility] [address] [place] [address] Dr. Nehemias Leal MANUAL DIFF REQ NO Normal [facility] Comment on above: Performed By: #### C BC #### [facility] [address] [place] [address] Dr. Nehemias Leal MCH (RBC) [Entitic mass] 29.2 pg Normal 25.9-34.0 [facility] Comment on above: Performed By: #### C BC #### [facility] [address] [place] [address] Dr. Nehemias Leal MCHC (RBC) [Mass/Vol] 34.2 g/dL Normal 29.9-35.2 [facility] Comment on above: Performed By: #### C BC #### [facility] [address] [place] [address] Dr. Nehemias Leal MCV (RBC) [Entitic vol] 85.5 fL Normal 80.0-94.0 [facility] Comment on above: Performed By: #### C BC #### [facility] [address] [place] [address] Dr. Nehemias Leal MONO # 0.6 103/ul Normal 0.3-0.8 [facility] Comment on above: Performed By: #### C BC #### [facility] [address] [place] [address] Dr. Nehemias Leal Monocytes/100 WBC (Bld) 7.9 % Normal 1.7-12.0 [facility] Comment on above: Performed By: #### C BC #### [facility] [address] [place] [address] Dr. Nehemias Leal NEUT # 4.4 103/ul Normal 1.4-6.5 [facility] Comment on above: Performed By: #### C BC #### [facility] [address] [place] [address] Dr. Nehemias Leal Neutrophils/100 WBC (Bld) 54.8 % Normal 43.0-75.0 [facility] Comment on above: Performed By: #### C BC #### [facility] [address] [place] [address] Dr. Nehemias Leal Platelet mean volume (Bld) [Entitic vol] 9.8 fL Normal 9.5-13.5 [facility] Comment on above: Performed By: #### C BC #### [facility] [address] [place] [address] Dr. Nehemias Leal PLT 264 103/ul Normal 150-450 [facility] Comment on above: Performed By: #### C BC #### [facility] [address] [place] [address] Dr. Nehemias Leal RBC 5.24 106/ul Normal 4.70-6.10 [facility] Comment on above: Performed By: #### C BC #### [facility] [address] [place] [address] Dr. Nehemias Leal WBC 7.9 103/ul Normal 4.0-11.0 [facility] Comment on above: Performed By: #### C BC #### [facility] [address] [place] [address] Dr. Nehemias Leal PROF 14(COMP METB)on 022 Albumin [Mass/Vol] 3.8 g/dL Normal 3.5-5.0 [facility] Comment on above: Performed By: #### C CHANNING HSTROPN #### [facility] [address] [place] [address] Dr. Nehemias Leal Albumin/Globulin [Mass ratio] 1.0 {ratio} Normal [facility] Comment on above: Performed By: #### C CHANNING HSTROPN #### [facility] [address] [place] [address] Dr. Nehemias Leal ALP [Catalytic activity/Vol] 73 U/L Normal 38-126 [facility] Comment on above: Performed By: #### C CHANNING HSTROPN #### [facility] [address] [place] [address] Dr. Nehemias Leal ALT [Catalytic activity/Vol] 27 U/L Normal 21-72 [facility] Comment on above: Performed By: #### C CHANNING HSTROPN #### [facility] [address] [place] [address] Dr. Nehemias Leal Anion gap [Moles/Vol] 11.0 mmol/L Normal [facility] Comment on above: Performed By: #### C CHANNING HSTROPN #### [facility] [address] [place] [address] Dr. Nehemias Leal AST [Catalytic activity/Vol] 17 U/L Normal 17-59 [facility] Comment on above: Performed By: #### C CHANNING HSTROPN #### [facility] [address] [place] [address] Dr. Nehemias Leal Bilirubin [Mass/Vol] 0.2 mg/dL Normal 0.2-1.3 [facility] Comment on above: Performed By: #### C CHANNING, HSTROPN #### [facility] [address] [address] [address] Nehemias Leal Calcium [Mass/Vol] 9.0 mg/dL Normal 8.4-10.2 [facility] Comment on above: Performed By: #### C MP, HSTROPN #### [facility] [address] [address] [address] Nehemias Leal Chloride [Moles/Vol] 104 mmol/L Normal 98-107 [facility] Comment on above: Performed By: #### C CHANNING, HSTROPN #### [facility] [address] [place] [address] Dr. Nehemias Leal CO2 [Moles/Vol] 25.6 mmol/L Normal 22.0-30.0 [facility] Comment on above: Performed By: #### C CHANNING, HSTROPN #### [facility] [address] [place] [address] Dr. Nehemias Leal Creatinine [Mass/Vol] 1.09 mg/dL Normal 0.66-1.25 [facility] Comment on above: Performed By: #### C CHANNING, HSTROPN #### [facility] [address] [place] [address] Dr. Nehemias Leal EGFR-AF BANGLADESHI >60 Normal >=60 [facility] Comment on above: Performed By: #### C MP, HSTROPN #### [facility] [address] [place] [address] Dr. Nehemias Leal EGFR-NON AF BANGLADESHI >60 Normal >=60 [facility] Comment on above: Performed By: #### C MP, HSTROPN #### [facility] [address] [place] [address] Dr. Nehemias Leal Globulin (S) [Mass/Vol] 3.7 g/dL Normal [facility] Comment on above: Performed By: #### C MP, HSTROPN #### [facility] [address] [address] [address] Nehemias Leal Glucose [Mass/Vol] 95 mg/dL Normal 74-106 [facility] Comment on above: Performed By: #### C MP, HSTROPN #### [facility] [address] [address] [address] Nehemias Leal Potassium [Moles/Vol] 3.6 mmol/L Normal 3.4-5.0 [facility] Comment on above: Performed By: #### C MP, HSTROPN #### [facility] [address] [address] [address] Nehemias Leal Protein [Mass/Vol] 7.5 g/dL Normal 6.1-8.2 [facility] Comment on above: Performed By: #### C MP, HSTROPN #### [facility] [address] [address] [address] Nehemias Leal Sodium [Moles/Vol] 137 mmol/L Normal 137-145 [facility] Comment on above: Performed By: #### C MP, HSTROPN #### [facility] [address] [address] [address] Nehemias Leal Urea nitrogen [Mass/Vol] 22.0 mg/dL Critically high 9.0-20.0 [facility] Comment on above: Performed By: #### C MP, HSTROPN #### [facility] [address] [address] [address] Nehemias Leal Urea nitrogen/Creatinine [Mass ratio] 20.2 mg/mg Normal [facility] Comment on above: Performed By: #### C MP, HSTROPN #### [facility] [address] [address] [address] Nehemias Leal PROTIMEon 08-17-2021 INR Coag (PPP) [Relative time] 0.94 {INR} Normal [facility] Comment on above: Performed By: #### A FP. #### [facility] [address] [address] [address] Nehemias Leal INR GUIDELINES SEE BELOW Normal [facility] Comment on above: Result Comment: LUIS RED INR: 2.0 - 3.0 CONDITIONS NOT LISTED BELOW 2.5 - 3.5 FOR PROSTHETIC HEART VALVE REPLACEMENT 2.5 - 3.5 RECURRENT THROMBOSIS Performed By: #### A FP. #### [facility] [address] [place] [address] Dr. Nehemias Leal PT Coag (PPP) [Time] 10.2 s Normal 9.0-11.6 [facility] Comment on above: Performed By: #### A FP. #### [facility] [address] [place] [address] Dr. Nehemias Leal PTTon 08-17-2021 aPTT Coag (Bld) [Time] 28.2 s Normal 22.3-36.2 [facility] Comment on above: Performed By: #### A FP. #### [facility] [address] [place] [address] Dr. Nehemias Leal TROPONIN, HIGH SENSITIVITYon 08-17-2021 HSTROP 6.0 pg/mL Normal 4.0-42.2 [facility] Comment on above: Result Comment: CUT- OFF POINTS HAVE BEEN ESTABLISHED BASED ON THE FOURTH UNIVERSAL DEFINITIONS OF MYOCARDIAL INFARCTION. THE UPPER REFERENCE LIMIT (URL) OF TROPONIN, DEFINED THE 99TH PERCENTILE OF cTnI DISTRIBUTION IN A REFERENCE POPULATION, HAS BEEN CONFIRMED THE DECISION THRESHOLD FOR PR DIAGNOSIS. Performed By: #### C MP, HSTROPN #### [facility] [address] [place] [address] Dr. Nehemias Leal AFP (TUMOR MARKER)on 022 AFP, Serum, Tumor Marker 1.3 ng/mL Normal 0.0-8.3 [facility] Comment on above: Result Comment: [email or web address] Electrochemiluminescence Immunoassay (ECLIA) . Values obtained [...] Female 0 - 7 days 0.0 - 94812.8 0.0 - 84913.8 8 - 30 days 0.0 - 93982.4 0.0 - 75119.4 1 month 0.0 - 1747.8 0.0 - [...] 8.7 Performed By: #### A . #### [facility] [address] [place] [address] Dr. Nehemias Leal HCG QUANT TUMOR MARKERon HCG QNT TUMOR MARKER <1 Normal 0-3 [facility] Comment on above: Result Comment: [employer] Electrochemiluminescence Immunoassay (ECLIA) . The [employer] [...] developed and its performance characteristics determined by [employer]. It has not been cleared or approved by the Food and Drug Administration for use as a tumor marker. . This test is not interpretable as a tumor marker in females. Performed By: #### H CGTMOR #### [facility] [address] [place] [address] Dr. Nehemias Leal POINT OF CARE GLUCOSEon 07-18 Glucose [Mass/Vol] 111 mg/dL Critically high 74-106 [facility] Comment on above: Performed By: #### P OCGLUC #### [facility] [address] [place] [address] Dr. Nehemias Leal CBC AUTO DIFFon 08-02-2021 BASO # 0.1 103/ul Normal 0.0-0.1 [facility] Comment on above: Performed By: #### A FP. #### [facility] [address] [place] [address] Dr. Nehemias Leal Basophils/100 WBC (Bld) 0.5 % Normal 0.2-2.0 [facility] Comment on above: Performed By: #### A FP. #### [facility] [address] [place] [address] Dr. Nehemias Leal EO # 0.2 103/ul Normal 0.0-0.7 [facility] Comment on above: Performed By: #### A FP. #### [facility] [address] [place] [address] Dr. Nehemias Leal Eosinophils/100 WBC (Bld) 1.7 % Normal 0.9-7.0 [facility] Comment on above: Performed By: #### A FP. #### [facility] [address] [place] [address] Dr. Nehemias Leal Erythrocyte distribution width (RBC) [Ratio] 12.8 % Normal 11.0-15.0 [facility] Comment on above: Performed By: #### A FP. #### [facility] [address] [place] [address] Dr. Nehemias Leal Hematocrit (Bld) [Volume fraction] 46.2 % Normal 42.0-54.0 [facility] Comment on above: Performed By: #### A FP. #### [facility] [address] [address] [address] Nehemias Leal Hemoglobin (Bld) [Mass/Vol] 15.8 g/dL Normal 14.0-18.0 [facility] Comment on above: Performed By: #### A FP. #### [facility] [address] [place] [address] Dr. Nehemias Leal IG # 0.05 10e3/ul Critically high 0.00-0.03 [facility] Comment on above: Performed By: #### A FP. #### [facility] [address] [place] [address] Dr. Nehemias Leal IG % 0.5 % Normal 0.0-0.5 [facility] Comment on above: Performed By: #### A FP. #### [facility] [address] [place] [address] Dr. Nehemias Leal LYMPH # 2.5 103/ul Normal 1.2-3.8 [facility] Comment on above: Performed By: #### A FP. #### [facility] [address] [place] [address] Dr. Nehemias Leal Lymphocytes/100 WBC (Bld) 22.9 % Normal 20.5-60.0 [facility] Comment on above: Performed By: #### A FP. #### [facility] [address] [place] [address] Dr. Nehemias Leal MANUAL DIFF REQ NO Normal [facility] Comment on above: Performed By: #### A FP. #### [facility] [address] [place] [address] Dr. Nehemias Leal MCH (RBC) [Entitic mass] 29.3 pg Normal 25.9-34.0 [facility] Comment on above: Performed By: #### A FP. #### [facility] [address] [place] [address] Dr. Nehemias Leal MCHC (RBC) [Mass/Vol] 34.2 g/dL Normal 29.9-35.2 [facility] Comment on above: Performed By: #### A FP. #### [facility] [address] [place] [address] Dr. Nehemias Leal MCV (RBC) [Entitic vol] 85.7 fL Normal 80.0-94.0 [facility] Comment on above: Performed By: #### A FP. #### [facility] [address] [place] [address] Dr. Nehemias Leal MONO # 0.7 103/ul Normal 0.3-0.8 [facility] Comment on above: Performed By: #### A FP. #### [facility] [address] [place] [address] Dr. Nehemias Leal Monocytes/100 WBC (Bld) 6.7 % Normal 1.7-12.0 [facility] Comment on above: Performed By: #### A FP. #### [facility] [address] [place] [address] Dr. Nehemias Leal NEUT # 7.4 103/ul Critically high 1.4-6.5 [facility] Comment on above: Performed By: #### A FP. #### [facility] [address] [place] [address] Dr. Nehemias Leal Neutrophils/100 WBC (Bld) 67.7 % Normal 43.0-75.0 [facility] Comment on above: Performed By: #### A FP. #### [facility] [address] [place] [address] Dr. Nehemias Leal Platelet mean volume (Bld) [Entitic vol] 9.8 fL Normal 9.5-13.5 [facility] Comment on above: Performed By: #### A FP. #### [facility] [address] [place] [address] Dr. Nehemias Leal PLT 283 103/ul Normal 150-450 [facility] Comment on above: Performed By: #### A FP. #### [facility] [address] [place] [address] Dr. Nehemias Leal RBC 5.39 106/ul Normal 4.70-6.10 [facility] Comment on above: Performed By: #### A FP. #### [facility] [address] [place] [address] Dr. Nehemias Leal WBC 11.0 103/ul Normal 4.0-11.0 [facility] Comment on above: Performed By: #### A FP. #### [facility] [address] [place] [address] Dr. Nehemias Leal Covid-19 PCR (CVDTB)on 07-18 SARS-CoV-2 (COVID-19) RNA ANKIT+probe Ql (Unsp spec) Not detected Normal NOT DETECTED [facility] Comment on above: Result Comment: When diagnostic testing is negative, the possibility of a false negative should be considered in the context of a patient's recent exposures and the presence of clinical signs and symptoms consistent with SARS-CoV-2. This test is not yet approved or cleared by the [place] Food and Drug Administration (FDA). This test was developed by [employer], [place], [place]. The performance characteristics of this test were validated by [facility]. The results are not intended to be used as the sole means for clinical diagnosis or patient management decisions. [facility] is authorized under Clinical Laboratory Improvement Amendments [...] for this test is supported by the [employer] of Health and Human Service's declaration that [...] used). Performed By: #### A FP. #### [facility] [address] [place] [address] Dr. Nehemias Leal LDHon 08-02-2021 LDH 185 U/L Normal 122-222 [facility] Comment on above: Performed By: #### A FP. #### [facility] [address] [place] [address] Dr. Nehemias Leal PROF CHEM 8 (BAS METB)on Anion gap [Moles/Vol] 11.2 mmol/L Normal [facility] Comment on above: Performed By: #### A FP. #### [facility] [address] [place] [address] Dr. Nehemias Leal Calcium [Mass/Vol] 9.3 mg/dL Normal 8.4-10.2 [facility] Comment on above: Performed By: #### A FP. #### [facility] [address] [place] [address] Dr. Nehemias Leal Chloride [Moles/Vol] 103 mmol/L Normal 98-107 [facility] Comment on above: Performed By: #### A FP. #### [facility] [address] [place] [address] Dr. Nehemias Leal CO2 [Moles/Vol] 27.5 mmol/L Normal 22.0-30.0 [facility] Comment on above: Performed By: #### A FP. #### [facility] [address] [place] [address] Dr. Nehemias Leal Creatinine [Mass/Vol] 0.91 mg/dL Normal 0.66-1.25 [facility] Comment on above: Performed By: #### A FP. #### [facility] [address] [place] [address] Dr. Nehemias Leal EGFR-AF BANGLADESHI >60 Normal >=60 [facility] Comment on above: Performed By: #### A FP. #### [facility] [address] [place] [address] Dr. Nehemias Leal EGFR-NON AF BANGLADESHI >60 Normal >=60 [facility] Comment on above: Performed By: #### A FP. #### [facility] [address] [place] [address] Dr. Nehemias Leal Glucose [Mass/Vol] 108 mg/dL Critically high 74-[address] [facility] Comment on above: Performed By: #### A FP. #### [facility] [address] [place] [address] Dr. Nehemias Leal Potassium [Moles/Vol] 3.7 mmol/L Normal 3.4-5.0 [facility] Comment on above: Performed By: #### A FP. #### [facility] [address] [place] [address] Dr. Nehemias Leal Sodium [Moles/Vol] 138 mmol/L Normal 137-145 [facility] Comment on above: Performed By: #### A FP. #### [facility] [address] [address] [address] Nehemias Leal Urea nitrogen [Mass/Vol] 17.0 mg/dL Normal 9.0-20.0 [facility] Comment on above: Performed By: #### A FP. #### [facility] [address] [place] [address] Dr. Nehemias Leal Urea nitrogen/Creatinine [Mass ratio] 18.7 mg/mg Normal [facility] Comment on above: Performed By: #### A FP. #### [facility] [address] [place] [address] Dr. Nehemias Leal PROTIMEon 08-02-2021 INR Coag (PPP) [Relative time] 0.98 {INR} Normal [facility] Comment on above: Performed By: #### P T, PTT #### [facility] [address] [place] [address] Dr. Nehemias Leal INR GUIDELINES SEE BELOW Normal [facility] Comment on above: Result Comment: LUIS RED INR: 2.0 - 3.0 CONDITIONS NOT LISTED BELOW 2.5 - 3.5 FOR PROSTHETIC HEART VALVE REPLACEMENT 2.5 - 3.5 RECURRENT THROMBOSIS Performed By: #### P T, PTT #### [facility] [address] [place] [address] Dr. Nehemias Leal PT Coag (PPP) [Time] 10.6 s Normal 9.0-11.6 [facility] Comment on above: Performed By: #### P T, PTT #### [facility] [address] [place] [address] Dr. Nehemias Leal PTTon 08-02-2021 aPTT Coag (Bld) [Time] 23.2 s Normal 22.3-36.2 [facility] Comment on above: Performed By: #### P T, PTT #### [facility] [id number] Nehemias Leal US Testicular/Scrotumon 07-18 US [...] by Sandrita Ngo on 07/27/2021 1656 Normal [facility] CT Abdomen/Pelvis w/o Contra ston 06-14-2021 CT [...] by Flor Huerta on 06/14/2021 1225 Normal [facility] Examin[facility] US Testicular/Scrotumon 05-18 US Testicular/Scrotum HISTORY: Right testicle lump COMPARISON: [...] by Flor Huerta on 06/14/2021 1304 Normal [facility] Specialist Vital Signs Date Time Vital Sign Value Performing Clinician Facility 06-16-2024 09:59-0500 Body height 177.8 cm [employer] Phone: [facility] 06-16-2024 09:59-0500 Body mass index (BMI) [Ratio] 50.51 kg/m2 Ashli Ni DO Work Phone: [facility] 06-16-2024 09:59-0500 Body temperature 97.9 [degF] Ashli Ni DO Work Phone: [facility] 06-16-2024 09:59-0500 Body weight 159.67 kg Ashli Ni DO Work Phone: [facility] 06-16-2024 09:59-0500 Diastolic blood pressure 68 mm[Hg] Ashli Ni DO Work Phone: [facility] 06-16-2024 09:59-0500 Heart rate 68 /min Ashli Ni DO Work Phone: [facility] 06-16-2024 09:59-0500 SaO2% (BldA) [Mass fraction] 97 % Ashli Ni DO Work Phone: [facility] 06-16-2024 09:59-0500 Systolic blood pressure 126 mm[Hg] Ashli Ni DO Work Phone: [facility] 05-25-2024 11:40-0500 Body height 177.8 cm Ashli Ni DO Work Phone: [facility] 05-25-2024 11:40-0500 Body mass index (BMI) [Ratio] 51.08 kg/m2 Ashli Ni DO Work Phone: [facility] 05-25-2024 11:40-0500 Body temperature 97.9 [degF] Ashli Ni DO Work Phone: [facility] 05-25-2024 11:40-0500 Body weight 161.48 kg Ashli Ni DO Work Phone: [facility] 05-25-2024 11:40-0500 Diastolic blood pressure 80 mm[Hg] Ashli Ni DO Work Phone: [facility] 05-25-2024 11:40-0500 Heart rate 79 /min Ashli Ni DO Work Phone: [facility] 05-25-2024 11:40-0500 SaO2% (BldA) [Mass fraction] 97 % Ashli Ni DO Work Phone: [facility] 05-25-2024 11:40-0500 Systolic blood pressure 118 mm[Hg] Ashli Ni DO Work Phone: [facility] 05-13-2024 09:15-0500 Body mass index (BMI) [Ratio] 49.62 kg/m2 ARJUN Jasso MD Work Phone: [facility] 05-13-2024 09:15-0500 Body weight 161.3 kg ARJUN Jasso MD Work Phone: [facility] 05-13-2024 09:15-0500 Diastolic blood pressure 79 mm[Hg] ARJUN Jasso MD Work Phone: [facility] 05-13-2024 09:15-0500 Heart rate 65 /min ARJUN Jasso MD Work Phone: [facility] 05-13-2024 09:15-0500 Respiratory rate 18 /min ARJUN Jasso MD Work Phone: [facility] 05-13-2024 09:15-0500 SaO2% (BldA) [Mass fraction] 98 % ARJUN Jasso MD Work Phone: [facility] 05-13-2024 09:15-0500 Systolic blood pressure 125 mm[Hg] ARJUN Jasso MD Work Phone: [facility] 03-23-2024 10:05-0400 Blood Pressure Location Chantal LEWIS [facility] 03-23-2024 10:05-0400 Diastolic blood pressure 92 mm[Hg] Cahntal LEWIS [facility] 03-23-2024 10:05-0400 Heart rate 70 /min Chantal LEWIS [facility] 03-23-2024 10:05-0400 Respiratory rate 16 /min Chantal LEWIS [facility] 03-23-2024 10:05-0400 Systolic blood pressure 130 mm[Hg] Chantal LEWIS [facility] 03-06-2024 09:21-0400 Body height 177.8 cm Ashli Ni DO Work Phone: [facility] 03-06-2024 09:21-0400 Body mass index (BMI) [Ratio] 46.92 kg/m2 Ashli Ni DO Work Phone: [facility] 03-06-2024 09:21-0400 Body temperature 97.81 [degF] Ashli Ni DO Work Phone: [facility] 03-06-2024 09:21-0400 Body weight 148.33 kg Ashli Ni DO Work Phone: [facility] 03-06-2024 09:21-0400 Diastolic blood pressure 94 mm[Hg] Ashli Ni DO Work Phone: [facility] 03-06-2024 09:21-0400 Heart rate 62 /min Ashli Ni DO Work Phone: [facility] 03-06-2024 09:21-0400 SaO2% (BldA) [Mass fraction] 97 % Ashli Ni DO Work Phone: [facility] 03-06-2024 09:21-0400 Systolic blood pressure 130 mm[Hg] Ashli Ni DO Work Phone: [facility] 02-06-2024 15:46-0400 Body mass index (BMI) [Ratio] 48.79 kg/m2 Jordan Peters MD Work Phone: [facility] 02-06-2024 15:46-0400 Body temperature 97.81 [degF] Jordan Peters MD Work Phone: [facility] 02-06-2024 15:46-0400 Body weight 158.6 kg Jordan Peters MD Work Phone: [facility] 02-06-2024 15:46-0400 Diastolic blood pressure 91 mm[Hg] Jordan Peters MD Work Phone: [facility] 02-06-2024 15:46-0400 Heart rate 75 /min Jordan Peters MD Work Phone: [facility] 02-06-2024 15:46-0400 Respiratory rate 18 /min Jordan Peters MD Work Phone: [facility] 02-06-2024 15:46-0400 SaO2% (BldA) [Mass fraction] 100 % Jordan Peters MD Work Phone: [facility] 02-06-2024 15:46-0400 Systolic blood pressure 154 mm[Hg] Jordan Peters MD Work Phone: [facility] 10-22-2023 15:01-0400 Body mass index (BMI) [Ratio] 48.91 kg/m2 ARJUN Jasso MD Work Phone: [facility] 10-22-2023 15:01-0400 Body temperature 97.3 [degF] ARJUN Jasso MD Work Phone: [facility] 10-22-2023 15:01-0400 Body weight 159 kg ARJUN Jasso MD Work Phone: [facility] 10-22-2023 15:01-0400 Diastolic blood pressure 85 mm[Hg] ARJUN Jasso MD Work Phone: [facility] 10-22-2023 15:01-0400 Heart rate 76 /min ARJUN Jasso MD Work Phone: [facility] 10-22-2023 15:01-0400 Respiratory rate 18 /min ARJUN Jasso MD Work Phone: [facility] 10-22-2023 15:01-0400 SaO2% (BldA) [Mass fraction] 95 % ARJUN Jasso MD Work Phone: [facility] 10-22-2023 15:01-0400 Systolic blood pressure 137 mm[Hg] ARJUN Jasso MD Work Phone: [facility] 08-13-2023 15:04-0500 Body temperature 97.11 [degF] ARJUN Jasso MD Work Phone: [facility] 08-13-2023 15:04-0500 Body weight 155.4 kg ARJUN Jasso MD Work Phone: [facility] 08-13-2023 15:04-0500 Diastolic blood pressure 86 mm[Hg] ARJUN Jasso MD Work Phone: [facility] 08-13-2023 15:04-0500 Heart rate 73 /min ARJUN Jasso MD Work Phone: [facility] 08-13-2023 15:04-0500 Respiratory rate 18 /min ARJUN Jasso MD Work Phone: [facility] 08-13-2023 15:04-0500 SaO2% (BldA) [Mass fraction] 97 % ARJUN Jasso MD Work Phone: [facility] 08-13-2023 15:04-0500 Systolic blood pressure 141 mm[Hg] ARJUN Jasso MD Work Phone: [facility] 07-22-2023 09:44-0500 Body temperature 97.7 [degF] ARJUN Jasso MD Work Phone: [facility] 07-22-2023 09:44-0500 Body weight 152.4 kg ARJUN Jasso MD Work Phone: [facility] 07-22-2023 09:44-0500 Diastolic blood pressure 108 mm[Hg] ARJUN Jasso MD Work Phone: [facility] 07-22-2023 09:44-0500 Heart rate 64 /min ARJUN Jasso MD Work Phone: [facility] 07-22-2023 09:44-0500 Respiratory rate 18 /min ARJUN Jasso MD Work Phone: [facility] 07-22-2023 09:44-0500 SaO2% (BldA) [Mass fraction] 98 % ARJUN Jasso MD Work Phone: [facility] 07-22-2023 09:44-0500 Systolic blood pressure 165 mm[Hg] ARJUN Jasso MD Work Phone: [facility] 06-20-2023 10:15-0500 Body height Krys Allen Other [employer] Other 06-20-2023 10:15-0500 Body mass index (BMI) [Ratio] 47.2 kg/m2 Krys Alejandro Other [employer] Other 06-20-2023 10:15-0500 Body weight 149.23 kg Krys Alejandro Other [employer] Other 06-20-2023 10:15-0500 Diastolic blood pressure 82 mm[Hg] Krys Alejandro Other [employer] Other 06-20-2023 10:15-0500 SaO2% (BldA) [Mass fraction] 98 % Krys Alejandro Other [employer] Other 06-20-2023 10:15-0500 Systolic blood pressure 137 mm[Hg] Krys Alejandro Other [employer] Other 05-23-2023 15:29-0500 Body temperature 97.7 [degF] Jordan Peters MD Work Phone: [facility] 05-23-2023 15:29-0500 Body weight 150.14 kg Jordan Peters MD Work Phone: [facility] 05-23-2023 15:29-0500 Diastolic blood pressure 92 mm[Hg] Jordan Peters MD Work Phone: [facility] 05-23-2023 15:29-0500 Heart rate 69 /min Jordan Peters MD Work Phone: [facility] 05-23-2023 15:29-0500 Respiratory rate 16 /min Jordan Peters MD Work Phone: [facility] 05-23-2023 15:29-0500 SaO2% (BldA) [Mass fraction] 95 % Jordan Peters MD Work Phone: [facility] 05-23-2023 15:29-0500 Systolic blood pressure 148 mm[Hg] Jordan Peters MD Work Phone: [facility] 02-14-2023 15:26-0400 Body height 180.3 cm Rosette Jossie PA-C Work Phone: [facility] 02-14-2023 15:26-0400 Body temperature 97.39 [degF] Rosette Jossie PA-C Work Phone: [facility] 02-14-2023 15:26-0400 Body weight 157.49 kg Rosette Jossie PA-C Work Phone: [facility] 02-14-2023 15:26-0400 Diastolic blood pressure 89 mm[Hg] Rosette Jossie PA-C Work Phone: [facility] 02-14-2023 15:26-0400 Heart rate 69 /min Rosette Jossie PA-C Work Phone: [facility] 02-14-2023 15:26-0400 Respiratory rate 16 /min Rosette Jossie PA-C Work Phone: [facility] 02-14-2023 15:26-0400 SaO2% (BldA) [Mass fraction] 97 % Rosette Jossie PA-C Work Phone: [facility] 02-14-2023 15:26-0400 Systolic blood pressure 156 mm[Hg] Rosette Jossie PA-C Work Phone: [facility] 07-09-2022 14:58-0500 Body temperature 97.5 [degF] Jordan Peters MD Work Phone: [facility] 07-09-2022 14:58-0500 Body weight 150.23 kg Jordan Peters MD Work Phone: [facility] 07-09-2022 14:58-0500 Diastolic blood pressure 91 mm[Hg] Jordan Peters MD Work Phone: [facility] 07-09-2022 14:58-0500 Heart rate 70 /min Jordan Peters MD Work Phone: [facility] 07-09-2022 14:58-0500 Respiratory rate 16 /min Jordan Peters MD Work Phone: [facility] 07-09-2022 14:58-0500 SaO2% (BldA) [Mass fraction] 96 % Jordan Peters MD Work Phone: [facility] 07-09-2022 14:58-0500 Systolic blood pressure 161 mm[Hg] Jordan Peters MD Work Phone: [facility] 04-09-2022 15:13-0400 Body height 179.1 cm Jordan Peters MD Work Phone: [facility] 04-09-2022 15:13-0400 Body temperature 97.59 [degF] Jordan Peters MD Work Phone: [facility] 04-09-2022 15:13-0400 Body weight 145.15 kg Jordan Peters MD Work Phone: [facility] 04-09-2022 15:13-0400 Diastolic blood pressure 83 mm[Hg] Jordan Peters MD Work Phone: [facility] 04-09-2022 15:13-0400 Heart rate 70 /min Jordan Peters MD Work Phone: [facility] 04-09-2022 15:13-0400 Respiratory rate 16 /min Jordan Peters MD Work Phone: [facility] 04-09-2022 15:13-0400 SaO2% (BldA) [Mass fraction] 97 % Jordan Peters MD Work Phone: [facility] 04-09-2022 15:13-0400 Systolic blood pressure 145 mm[Hg] Jordan Peters MD Work Phone: [facility] 12-26-2021 15:44-0400 Body height 179.1 cm Jordan Peters MD Work Phone: [facility] 12-26-2021 15:44-0400 Body temperature 97.5 [degF] Jordan Peters MD Work Phone: [facility] 12-26-2021 15:44-0400 Body weight 144.88 kg Jordan Peters MD Work Phone: [facility] 12-26-2021 15:44-0400 Diastolic blood pressure 90 mm[Hg] Jordan Peters MD Work Phone: [facility] 12-26-2021 15:44-0400 Heart rate 66 /min Jordan Peters MD Work Phone: [facility] 12-26-2021 15:44-0400 Respiratory rate 18 /min Jordan Peters MD Work Phone: [facility] 12-26-2021 15:44-0400 SaO2% (BldA) [Mass fraction] 97 % Jordan Peters MD Work Phone: [facility] 12-26-2021 15:44-0400 Systolic blood pressure 157 mm[Hg] Jordan Peters MD Work Phone: [facility] 11-27-2021 15:33-0400 Blood Pressure Location Chantal LEWIS [facility] 11-27-2021 15:33-0400 Diastolic blood pressure 78 mm[Hg] Chantal LEWIS [facility] 11-27-2021 15:33-0400 Heart rate 78 /min Chantal LEWIS [facility] 11-27-2021 15:33-0400 Systolic blood pressure 138 mm[Hg] Chantal LEWIS [facility] 09-26-2021 15:17-0400 Body height 179.1 cm Jordan Peters MD Work Phone: [facility] 09-26-2021 15:17-0400 Body temperature 97.81 [degF] Jordan Peters MD Work Phone: [facility] 09-26-2021 15:17-0400 Body weight 145.15 kg Jordan Peters MD Work Phone: [facility] 09-26-2021 15:17-0400 Diastolic blood pressure 106 mm[Hg] Jordan Peters MD Work Phone: [facility] 09-26-2021 15:17-0400 Heart rate 72 /min Jordan Peters MD Work Phone: [facility] 09-26-2021 15:17-0400 Respiratory rate 18 /min Jordan Peters MD Work Phone: [facility] 09-26-2021 15:17-0400 SaO2% (BldA) [Mass fraction] 97 % Jordan Peters MD Work Phone: [facility] 09-26-2021 15:17-0400 Systolic blood pressure 169 mm[Hg] Jordan Peters MD Work Phone: [facility] 04-25-2021 10:45-0500 Body height Pravin Olexa Other [employer] Other 04-25-2021 10:45-0500 Body mass index (BMI) [Ratio] 44.82 kg/m2 Pravin Olexa Other [employer] Other 04-25-2021 10:45-0500 Body weight 141.7 kg Pravin Olexa Other [facility] [employer] Other Encounters Encounter Date Encounter Type Care Provider Facility Start: 01-22-2025 ambulatory Chantal Ortiz ty:[facility] [place] Start: 08-03-2024 End: 08-03-2024 Telephone encounter Dimitry Jasso MD Work Phone: Radiation Oncology Comment on above: Lump Start: 06-16-2024 End: 06-16-2024 Bamboo flowsheet Ashli R Avaniftan DO Work Phone: [facility] Start: 06-16-2024 End: 06-16-2024 Bamboo flowsheet Ashli R Avaniftan DO Work Phone: [facility] Start: 06-16-2024 End: 06-16-2024 ambulatory ASHLI NI Not Available Start: 06-16-2024 End: 06-16-2024 Office outpatient visit 15 minutes Ashli Christiane Avaniftcarlos DO Work Phone: [facility] Comment on above: Bronchitis (Primary Dx); Abdominal muscle pain Start: 06-04-2024 End: 06-04-2024 Refill Ashli R Avaniftan DO Work Phone: [facility] Comment on above: Acute right ankle pa in Start: 05-25-2024 End: 05-25-2024 Bamboo flowsheet Ashli R Avaniftan DO Work Phone: [facility] Start: 05-25-2024 End: 05-25-2024 Bamboo flowsheet Ashli R Avaniftan DO Work Phone: [facility] Start: 05-25-2024 End: 05-25-2024 Office outpatient visit 15 minutes Ashli R Kaftan DO Work Phone: [facility] Comment on above: Bronchitis (Primary Dx); Primary hypertension (CMS/HCC); Obstructive sleep apnea syndrome Start: 05-25-2024 End: 05-25-2024 ambulatory ASHLI NI Not Available Start: 05-13-2024 End: 05-13-2024 ambulatory Dimitry JASSO Facility:[facility] Start: 05-13-2024 End: 05-13-2024 Patient encounter procedure Dimitry Jasso MD Work Phone: Radiation Oncology Comment on above: 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) Start: 05-06-2024 End: 05-06-2024 ambulatory JORDAN Christiane PETERS Facility:[facility] Start: 05-06-2024 End: 05-06-2024 Subsequent [...] encounter procedure Chantal LEWIS [facility] Start: 03-23-2024 End: 03-23-2024 Refill Wander Joseph LPN Work Phone: [facility] Comment on above: Insomnia, unspecifie d type Start: 03-06-2024 End: 03-06-2024 Bamboo flowsheet Ashli Ni DO Work Phone: [facility] Start: 03-06-2024 End: 03-06-2024 Bamboo flowsheet Ashli Ni DO Work Phone: [facility] Start: 03-06-2024 End: 03-07-2024 Orders Only Ashli Ni DO Work Phone: [facility] Unsolicited Start: 03-06-2024 End: 03-06-2024 ambulatory ASHLI NI Not Available Start: 03-06-2024 End: 03-06-2024 Patient encounter status Ashli Ni DO Work Phone: 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); Chronic left shoulder pain; Elevated blood sugar; Lipid screening; Prostate cancer screening Start: 03-02-2024 End: 03-02-2024 Telephone encounter Ashli Ni DO Work Phone: [facility] [address] Start: 02-26-2024 End: 02-26-2024 Refill Ashli Ni DO Work Phone: [facility] 230 Comment on above: Acute right ankle pa in Start: 02-06-2024 End: 02-06-2024 Patient encounter procedure Jordan Peters MD Work Phone: Hematology/Oncology Start: 02-06-2024 End: 02-06-2024 ambulatory Jordan Peters MD Work Phone: Hematology/Oncology Comment on above: 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) Start: 02-05-2024 End: 02-05-2024 ambulatory JORDAN PETERS Facility:[facility] Start: 01-15-2024 End: 01-15-2024 ambulatory YEHUDA M WORKMAN Not Available Start: 10-28-2023 Telephone encounter Jordan betancourt MD Work Phone: [facility]iation [facility]cology Comment on above: Appointment Start: 10-22-2023 End: 10-22-2023 ambulatory Dimitry JASSO Facility:[facility] Start: 10-22-2023 End: 10-22-2023 Patient encounter procedure Dimitry Jasso MD Work Phone: Radiation Oncology Comment on above: 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) Start: 10-15-2023 End: 10-15-2023 ambulatory ASHLI NI JR Facility:[facility] Start: 10-15-2023 End: 10-15-2023 Subsequent hospital visit by physician Arrival Time Radiology Work Phone: [facility] Comment on above: Malignant neoplasm o f testicle, unspecified laterality, 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] Start: 10-08-2023 End: 10-08-2023 ambulatory ARIES LAURA Facility:[facility] Start: 10-07-2023 Social Work Cathi TEJEDAW Hematolo gy/Oncology Start: 08-13-2023 End: 08-13-2023 ambulatory Dimitry JASSO Facility:[facility] Start: 08-13-2023 End: 08-13-2023 Patient encounter procedure Dimitry Jasso MD Work Phone: Radiation Oncology Comment on above: Malignant neoplasm o f testicle, unspecified laterality, unspecified whether descended or undescended (HCC) (Primary Dx) Start: 08-09-2023 Telephone encounter Jordan betancourt MD Work Phone: [facility] Comment on above: Future Appointment Start: 08-02-2023 Patient encounter procedure Dimitry Jasso MD Work Phone: [employer] Start: 08-02-2023 Radiation Oncology Note Dimitry Jasso MD Work Phone: Radiation Oncology Comment on above: Completion Note Start: 07-29-2023 End: 07-29-2023 Patient encounter procedure Dimitry Jasso MD Work Phone: Radiation Oncology Comment on above: Malignant neoplasm o f testicle, unspecified laterality, unspecified whether descended or undescended (HCC) (Primary Dx) Start: 07-26-2023 Telephone encounter Dimitry Jasso MD Work Phone: Radiation Oncology Comment on above: Medication Problem Start: 07-25-2023 End: 07-25-2023 Patient encounter procedure Lab/Port [facility] Work Phone: Radiation Oncology Comment on above: Malignant neoplasm o f testicle, unspecified laterality, unspecified whether descended or undescended (HCC) Refill Request Start: 07-25-2023 Telephone encounter Dimitry Jasso MD Work Phone: [facility] Comment on above: Medication Problem Start: 07-24-2023 Telephone encounter Dimitry Jasso MD Work Phone: [facility]iation [facility]cology Start: 07-22-2023 End: 07-22-2023 Patient encounter procedure Dimitry Jasso MD Work Phone: [facility]iation Oncology Comment on above: Malignant neoplasm o f testicle, unspecified laterality, unspecified whether descended or undescended (HCC) (Primary Dx) Start: 07-18-2023 End: 07-18-2023 Patient encounter procedure Lab/Port Margarita Arana Work Phone: Radiation Oncology Comment on above: Malignant neoplasm o f testicle, unspecified laterality, unspecified whether descended or undescended (HCC) Start: 07-05-2023 End: 07-05-2023 Subsequent hospital visit by physician Dimitry Jasso MD Work Phone: [facility] Start: 06-20-2023 Office outpatient vi sit [address] [facility] Start: 06-20-2023 End: 06-20-2023 ambulatory DO Caity Ni Work Phone: [facility] Work Phone: Start: 06-20-2023 End: 06-20-2023 Patient encounter procedure DO Caity Ni Work Phone: [facility] Work Phone: Start: 06-07-2023 End: 06-07-2023 Subsequent hospital visit by physician Arrival Time Radiology Work Phone: [facility] Start: 05-23-2023 End: 05-23-2023 ambulatory Jordan Peters MD Work Phone: Hematology/Oncology Comment on above: 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) Start: 05-23-2023 End: 05-23-2023 Patient encounter procedure Jordan Peters MD Work Phone: [facility] Start: 05-17-2023 End: 05-17-2023 Subsequent hospital visit by physician Arrival Time Radiology Work Phone: [facility]iology [facility] Comment on above: 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] Start: 02-19-2023 Telephone encounter Yuliya London Hematology/Oncology Comment on above: Results Start: 02-14-2023 End: 02-14-2023 ambulatory Rosette Alejandro Jossie RAMOS-C Work Phone: Hematology/Oncology Comment on above: 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); Essential hypertension Start: 02-14-2023 End: 02-14-2023 Patient encounter procedure Rosette Allen Jossie PA-C Work Phone: [facility] Start: 10-31-2022 [...] encounter procedure DO Caity Ni Work Phone: [facility] Start: 04-17-2022 End: 04-17-2022 ambulatory DO Ciaty Ni Work Phone: [facility] Work Phone: Start: 04-17-2022 Office outpatient vi sit 15 minutes Krys Allen [facility] Start: 04-09-2022 End: 04-09-2022 ambulatory Jordan [...] encounter procedure DO Caity Ni Work Phone: [facility] Start: 01-02-2022 End: 01-02-2022 Patient encounter procedure DO Caity Varmasherron Work Phone: [facility] Start: 12-26-2021 End: 12-26-2021 ambulatory Jordan Peters MD Work Phone: Hematology/Oncology Comment on above: 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) Start: 12-26-2021 End: 12-26-2021 Patient encounter procedure Jordan Peters MD Work Phone: [facility] Start: 12-20-2021 Telephone encounter Jordan betancourt MD Work Phone: Hematology/Oncology Comment on above: Lab Orders Start: 11-27-2021 End: 11-27-2021 Patient encounter procedure Chantal LEWIS [facility] Start: 09-26-2021 End: 09-26-2021 ambulatory Jordan Peters [...] for preprocedural cardiovascular examination DR CHANTAL LEWIS [facility] Start: 08-04-2021 Encounter for preprocedural laboratory examination DR CHANTAL LEWIS [facility] Start: 08-03-2021 End: 08-03-[address] CHANTAL LEWIS Facility:[facility] Start: 08-02-2021 End: 08-03-[address] CHANTAL LEWIS Facility:[facility] Start: 08-02-2021 End: 08-03-2021 Encounter for preprocedural cardiovascular examination DR CHANTAL LEWIS Facility:[facility] Start: 04-25-2021 End: 04-25-2021 ambulatory Pravin Oleandrea Other [employer] Other Start: 04-25-2021 Office outpatient vi sit 15 minutes Pravin Olexa [facility] [place] [facility] Start: 03-21-2021 Office outpatient ne w 30 minutes Pravin Olexa [facility] Procedures Date Procedure Procedure Detail Performing Clinician Start: 05-06-2024 Ct abdomen & pelvis w/contrast material Jordan Peters MD Work Phone: Start: 05-06-2024 Ct thorax w/contrast material Jordan Peters MD Work Phone: Start: 03-06-2024 Hemoglobin glycosyla jose rafael a1c Ashli Ni DO Work Phone: Start: 03-06-2024 Lipid panel Ashli jay DO Work Phone: Start: 03-06-2024 SPECIMEN STATUS REPORT Ashli Ni DO Work Phone: Start: 10-15-[address] atten uation skull base mid-thigh G Thierno Jasso MD Work Phone: Start: 10-15-2023 End: 10-15-2023 Alpha-fetoprotein serum G Thierno grande MD Work Phone: Start: 07-25-2023 Blood count complete auto&auto difrntl wbc Fazal Castillo MD Work Phone: Start: 07-18-2023 Blood count complete auto&auto difrntl wbc Fazal Castillo MD Work Phone: Start: 06-07-2023 Pet imaging [...] Start: 03-06-2027 Diabetes Screening Diabetes Screenin g [facility] Start: 02-05-2027 [facility] Start: 05-17-2026 [facility] Start: 02-14-2026 DIABETES SCREEN DIABETES SCREEN [facility] Start: 07-09-2025 DIABETES SCREEN DIABETES SCREEN [facility] Start: 04-03-2025 DIABETES SCREEN DIABETES SCREEN [facility] Start: 12-26-2024 DIABETES SCREEN DIABETES SCREEN [facility] Start: 11-12-2024 End: 11-12-2024 Patient encounter procedure 11/12/2024 9:45 AM EDT Office Visit Radiation Oncology [address] [place] [address] Dimitry Jasso MD [address] [place] [address] 07/24-pt will have new ins. 2nd week of october-PLEASE SCAN CARD & UPDATEar Radiation Oncology Comment on above: 07/24-pt will hav e new ins. 2nd week of october-PLEASE SCAN CARD & UPDATEar Start: 11-06-2024 End: 11-06-2024 Patient encounter procedure 11/06/2024 10:00 AM EDT Office Visit [facility] [address] [place] [address] 07/24-pt will have new ins. 2nd week of october- PLEASE SCAN CARD & UPDATEar [facility] Comment on above: 02/07-pt will hav e new ins. 2nd week of october- PLEASE SCAN CARD & UPDATEar Start: 09-19-2024 DIABETES SCREEN DIABETES SCREEN [facility] Start: 08-13-2024 End: 11-12-2024 [id number] [Mass/volume] in Serum or Plasma ALPHA FETOPROTEIN Lab Routine Seminoma of descended right testis (HCC) Expected: 08/13/2024, Expires: 11/12/2024 [facility] Comment on above: Expected: 08/13/2024 , Expires: 11/12/2024 Start: 08-13-2024 End: 11-12-2024 CBC W Auto Differential panel - Blood COMPLETE BLOOD COUNT AND DIFFERENTIAL Lab Routine Seminoma of descended right testis (HCC) Expected: 08/13/2024, Expires: 11/12/2024 [facility] Comment on above: Expected: 08/13/2024 , Expires: 11/12/2024 Start: 08-13-2024 End: 11-12-2024 Choriogonadotropin.beta subunit [Units/volume] in Serum or Plasma BETA HCG QUANT TUMOR MARKER Lab Routine Seminoma of descended right testis (HCC) Expected: 08/13/2024, Expires: 11/12/2024 [facility] Comment on above: Expected: 08/13/2024 , Expires: 11/12/2024 Start: 08-13-2024 End: 11-12-2024 Lactate dehydrogenase [Enzymatic activity/volume] in Serum or Plasma LACTATE DEHYDROGENASE Lab Routine Seminoma of descended right testis (HCC) Expected: 08/13/2024, Expires: 11/12/2024 [facility] Work Phone: Comment on above: Expected: 08/13/2024 , Expires: 11/12/2024 Start: 08-13-2024 End: 08-13-2024 Patient encounter procedure 08/13/2024 9:15 AM EST Office Visit Radiation Oncology [address] [place] [address] [place] [address] Dimitry Jasso MD [address] [place] [address] 3 months follow up Radiation Oncology Comment on above: 3 months follow up Start: 08-06-2024 End: 08-06-2024 Patient encounter procedure 08/06/2024 9:00 AM EST Office Visit [facility] [address] [place] [address] [facility] Comment on above: labs Start: 05-25-2024 End: 05-25-2025 XR Chest 2 Views XR chest 2 views Imaging Routine Bronchitis Expected: 05/25/2024, Expires: 05/25/2025 [facility] Work Phone: Comment on above: Expected: 05/25/2024 , Expires: 05/25/2025 Start: 05-25-2024 End: 05-25-2024 Patient encounter procedure 05/25/2024 11:40 AM EST Office Visit [facility] [address] [place] [address] Ashli Ni DO [address] [place] [address] Arrived [facility] Comment on above: Arrived Start: 05-13-2024 End: 05-13-2024 Patient encounter procedure 05/13/2024 9:15 AM EST Office Visit Radiation Oncology [address] [place] [address] Dimitry Jasso MD [address] [place] [address] Followup Radiation Oncology Comment on above: Followup Start: 05-12-2024 End: 05-12-2024 Follow-up encounter 05/12/2024 3:45 PM EST Visit (SP) Office Hematology/Oncology [address] [place] [address] Jordan Peters MD [address] [place] [address] Followup Hematology/Oncology Comment on above: Followup Start: 05-12-2024 End: 05-12-2024 Patient encounter procedure 05/12/2024 3:30 PM EST Office Visit Radiation Oncology [address] [place] [address] Dimitry Jasso MD [address] [place] [address] Followup Radiation Oncology Comment on above: Followup Start: 05-06-2024 End: 11-26-2024 CT Abdomen and Pelvis W contrast IV CT ABD/PEL W IVCON Radiology Routine Malignant neoplasm of testicle, unspecified laterality, unspecified whether descended or undescended (HCC) Expected: 05/06/2024, Expires: 11/26/2024 [facility] Comment on above: Expected: 05/06/2024 , Expires: 11/26/2024 Start: 05-06-2024 End: 11-26-2024 CT Chest W contrast IV CT CHEST W IVCON Radiology Routine Malignant neoplasm of testicle, unspecified laterality, unspecified whether descended or undescended (HCC) Expected: 05/06/2024, Expires: 11/26/2024 [facility] Comment on above: Expected: 05/06/2024 , Expires: 11/26/2024 Start: 05-06-2024 End: 05-06-2024 Patient encounter procedure 05/06/2024 12:15 PM EST Appointment Radiology Pet CT [address] [place] [address] CT [facility] [address] Pet CT Comment on above: CT CAP Start: 2024 Pneumococcal Vaccine : 50+ (1 of 1 - PCV) Pneumococcal Vaccine: 50+ (1 of 1 - PCV) [facility] Start: 2024 Shingrix Vaccine (1 of 2) Shingrix Vaccine (1 of 2) [facility] Start: 03-06-2024 End: 03-06-2025 Hemoglobin A1c/Hemoglobin.total in Blood Hemoglobin A1c Lab Routine Elevated blood sugar Expected: 03/06/2024 (Approximate), Expires: 03/06/2025 [facility] Comment on above: Expected: 03/06/2024 (Approximate), Expires: 03/06/2025 Start: 03-06-2024 End: 03-06-2025 Lipid 1996 panel - Serum or Plasma Lipid panel Lab Routine Lipid screening Expected: 03/06/2024 (Approximate), Expires: 03/06/[address] [facility] Comment on above: Expected: 03/06/2024 (Approximate), Expires: 03/06/2025 Start: 03-06-2024 End: 03-06-2025 Prostate specific Ag [Mass/volume] in Serum or Plasma PSA Lab Routine Prostate cancer screening Expected: 03/06/2024 (Approximate), Expires: 03/06/[address] [facility] Comment on above: Expected: 03/06/2024 (Approximate), Expires: 03/06/2025 Start: 03-06-2024 End: 03-06-2025 XR Shoulder - left 2 Views XR shoulder 2+ views left Imaging Routine Chronic left shoulder pain Expected: 03/06/2024, Expires: 03/06/[address] [facility] Work Phone: Comment on above: Expected: 03/06/2024 , Expires: 03/06/2025 Start: 03-06-2024 End: 03-06-2024 Patient encounter procedure 03/06/2024 9:20 AM EDT Office Visit [facility] [address] [place] [address] Ashli Ni DO [address] [place] [address] [facility] Start: 02-16-2024 Covid-19 Vaccine ( season) Covid-19 Vaccine ( season) [facility] Start: 02-16-2024 Covid-19 Vaccine ( season) Covid-19 Vaccine ( season) [facility] Start: 02-16-2024 Influenza vaccination [facility] Start: 02-06-2024 End: 02-06-2024 Follow-up encounter 02/06/2024 3:45 PM EDT Visit (SP) Office Hematology/Oncology [address] [place] [address] Jordan Peters MD [address] [place] [address] Followup Hematology/Oncology Comment on above: Followup Start: 02-06-2024 End: 02-06-2024 Patient encounter procedure 02/06/2024 3:30 PM EDT Office Visit [facility] [address] [place] [address] [facility] Comment on above: lab Start: 01-28-2024 End: 04-28-2024 [id number]-[id number] [Mass/volume] in Serum or Plasma ALPHA FETOPROTEIN Lab Routine Malignant neoplasm of testicle, unspecified laterality, unspecified whether descended or undescended (HCC) Expected: 01/28/2024, Expires: 04/28/2024 [facility] Comment on above: Expected: 01/28/2024 , Expires: 04/28/2024 Start: 01-28-2024 End: 04-28-2024 CBC W Auto Differential panel - Blood COMPLETE BLOOD COUNT AND DIFFERENTIAL Lab Routine Malignant neoplasm of testicle, unspecified laterality, unspecified whether descended or undescended (HCC) Expected: 01/28/2024, Expires: 04/28/2024 [facility] Work Phone: Comment on above: Expected: 01/28/2024 , Expires: 04/28/2024 Start: 01-28-2024 End: 04-28-2024 Choriogonadotropin.beta subunit [Units/volume] in Serum or Plasma BETA HCG QUANT TUMOR MARKER Lab Routine Malignant neoplasm of testicle, unspecified laterality, unspecified whether descended or undescended (HCC) Expected: 01/28/2024, Expires: 04/28/2024 [facility] Comment on above: Expected: 01/28/2024 , Expires: 04/28/2024 Start: 01-28-2024 End: 04-28-2024 Comprehensive metabolic 2000 panel - Serum or Plasma COMPREHENSIVE METABOLIC PANEL Lab Routine Malignant neoplasm of testicle, unspecified laterality, unspecified whether descended or undescended (HCC) Expected: 01/28/2024, Expires: 04/28/2024 [facility] Comment on above: Expected: 01/28/2024 , Expires: 04/28/2024 Start: 01-28-2024 End: 04-28-2024 Lactate dehydrogenase [Enzymatic activity/volume] in Serum or Plasma LACTATE DEHYDROGENASE Lab Routine Malignant neoplasm of testicle, unspecified laterality, unspecified whether descended or undescended (HCC) Expected: 01/28/2024, Expires: 04/28/2024 [facility] Comment on above: Expected: 01/28/2024 , Expires: 04/28/2024 Start: 12-10-2023 End: 12-10-2023 Follow-up encounter 12/10/2023 2:00 PM EDT Visit (SP) Office Hematology/Oncology [address] [place] [address] Jordan Peters MD [address] [place] [address] Followup Hematology/Oncology Comment on above: Followup Start: 12-03-2023 End: 12-03-2023 Patient encounter procedure 12/03/2023 11:30 AM EDT Appointment Radiology Pet CT [address] [place] [address] Comment on above: PET Start: 10-22-2023 End: 10-22-2023 Patient encounter procedure 10/22/2023 3:00 PM EDT Office Visit Radiation Oncology [address] [place] [address] Dimitry Jasso MD [address] [place] [address] PATIENT NEEDS PFA APPT SET UP, NO INSURANCE Radiation Oncology Comment on above: PATIENT NEEDS PFA APPT SET UP, NO INSURANCE Start: 10-12-2023 End: 01-11-2024 [id number]-[id number] [Mass/volume] in Serum or Plasma ALPHA FETOPROTEIN BL Lab Routine Malignant neoplasm of testicle, unspecified laterality, unspecified whether descended or undescended (HCC) Expected: 10/12/2023, Expires: 01/11/2024 [facility] Work Phone: Comment on above: Expected: 10/12/2023 , Expires: 01/11/2024 Start: 10-12-2023 End: 01-11-2024 CBC W Auto Differential panel - Blood CBC + DIFF Lab Routine Malignant neoplasm of testicle, unspecified laterality, unspecified whether descended or undescended (HCC) Expected: 10/12/2023, Expires: 01/11/2024 [facility] Work Phone: Comment on above: Expected: 10/12/2023 , Expires: 01/11/2024 Start: 10-12-2023 End: 01-11-2024 Choriogonadotropin.beta subunit [Units/volume] in Serum or Plasma BETA HCG QUANT TUMOR MARKER Lab Routine Malignant neoplasm of testicle, unspecified laterality, unspecified whether descended or undescended (HCC) Expected: 10/12/2023, Expires: 01/11/2024 [facility] Work Phone: Comment on above: Expected: 10/12/2023 , Expires: 01/11/2024 Start: 10-12-2023 End: 01-11-2024 Lactate dehydrogenase [Enzymatic activity/volume] in Serum or Plasma LD LACTATE DEHYDRO Lab Routine Malignant neoplasm of testicle, unspecified laterality, unspecified whether descended or undescended (HCC) Expected: 10/12/2023, Expires: 01/11/2024 [facility] Work Phone: Comment on above: Expected: 10/12/2023 , Expires: 01/11/2024 Start: 10-12-2023 End: 09-11-2024 PET+CT Guidance for localization of tumor of Skull base to mid-thigh-- W 18F-FDG IV NM PET/CT SKULL-THIGH SUBSEQUENT Radiology Routine Malignant neoplasm of testicle, unspecified laterality, unspecified whether descended or undescended (HCC) Expected: 10/12/2023, Expires: 09/11/2024 [facility] Work Phone: Comment on above: Expected: 10/12/2023 , Expires: 09/11/2024 Start: 10-12-2023 End: 01-11-2024 Prostate specific Ag [Mass/volume] in Serum or Plasma PSA/PROSTSPECAG DIAG Lab Routine Malignant neoplasm of testicle, unspecified laterality, unspecified whether descended or undescended (HCC) Expected: 10/12/2023, Expires: 01/11/2024 [facility] Work Phone: Comment on above: Expected: 10/12/2023 , Expires: 01/11/2024 Start: 08-13-2023 End: 11-12-2023 CBC W Auto Differential panel - Blood CBC + DIFF Lab Routine Malignant neoplasm of testicle, unspecified laterality, unspecified whether descended or undescended (HCC) Expected: 08/13/2023, Expires: 11/12/2023 [facility] Work Phone: Comment on above: Expected: 08/13/2023 , Expires: 11/12/2023 Start: 06-17-2023 Behavioral Health Screening Behavioral Health Screening [facility] Start: 06-17-2023 Depression Assessment Depression Ass essment [facility] Start: 05-16-2023 End: 07-16-2023 [id number]-[id number] [Mass/volume] in Serum or Plasma ALPHA FETOPROTEIN BL Lab Routine Seminoma of descended right testis (HCC) Expected: 05/16/2023 (Approximate), Expires: 07/16/2023 [facility] Work Phone: Comment on above: Expected: 05/16/2023 (Approximate), Expires: 07/16/2023 Start: 05-16-2023 End: 07-16-2023 CBC W Auto Differential panel - Blood CBC + DIFF Lab Routine Seminoma of descended right testis (HCC) Expected: 05/16/2023 (Approximate), Expires: 07/16/2023 [facility] Work Phone: Comment on above: Expected: 05/16/2023 (Approximate), Expires: 07/16/2023 Start: 05-16-2023 End: 07-16-2023 Choriogonadotropin.beta subunit [Units/volume] in Serum or Plasma BETA HCG QUANT TUMOR MARKER Lab Routine Seminoma of descended right testis (HCC) Expected: 05/16/2023 (Approximate), Expires: 07/16/2023 [facility] Work Phone: Comment on above: Expected: 05/16/2023 (Approximate), Expires: 07/16/2023 Start: 05-16-2023 End: 07-16-2023 Comprehensive metabolic 2000 panel - Serum or Plasma COMP METABOLIC PANEL Lab Routine Seminoma of descended right testis (HCC) Expected: 05/16/2023 (Approximate), Expires: 07/16/2023 [facility] Work Phone: Comment on above: Expected: 05/16/2023 (Approximate), Expires: 07/16/2023 Start: 05-16-2023 End: 03-15-2024 Ct abdomen & pelvis w/contrast material CT ABD/PEL W IVCON Radiology Routine Seminoma of descended right testis (HCC) Expected: 05/16/2023 (Approximate), Expires: 03/15/2024 [facility] Work Phone: Comment on above: Expected: 05/16/2023 (Approximate), Expires: 03/15/2024 Start: 05-16-2023 End: 03-15-2024 CT CHEST W IVCON CT CHEST W IVCON Radiology Routine Seminoma of descended right testis (HCC) Expected: 05/16/2023 (Approximate), Expires: 03/15/2024 [facility] Work Phone: Comment on above: Expected: 05/16/2023 (Approximate), Expires: 03/15/2024 Start: 05-16-2023 End: 07-16-2023 Lactate dehydrogenase [Enzymatic activity/volume] in Serum or Plasma LD LACTATE DEHYDRO Lab Routine Seminoma of descended right testis (HCC) Expected: 05/16/2023 (Approximate), Expires: 07/16/2023 [facility] Work Phone: Comment on above: Expected: 05/16/2023 (Approximate), Expires: 07/16/2023 Start: 02-15-2023 Covid-19 Vaccine ( season) Covid-19 Vaccine () [facility] Start: 02-15-2023 Influenza vaccination [facility] Start: 10-07-2022 End: 12-07-2022 Gcfnh-1-Fheqpoxehku [Mass/volume] in Serum or Plasma ALPHA FETOPROTEIN BL Lab Routine Seminoma of descended right testis (HCC) Expected: 10/07/2022 (Approximate), Expires: 12/07/2022 [facility] Work Phone: Comment on above: Expected: 10/07/2022 (Approximate), Expires: 12/07/2022 Start: 10-07-2022 End: 12-07-2022 Basic metabolic 2000 panel - Serum or Plasma BASIC METABOLIC PNL Lab Routine Seminoma of descended right testis (HCC) Expected: 10/07/2022 (Approximate), Expires: 12/07/2022 [facility] Work Phone: Comment on above: Expected: 10/07/2022 (Approximate), Expires: 12/07/2022 Start: 10-07-2022 End: 12-07-2022 CBC W Auto Differential panel - Blood CBC + DIFF Lab Routine Seminoma of descended right testis (HCC) Expected: 10/07/2022 (Approximate), Expires: 12/07/2022 [facility] Work Phone: Comment on above: Expected: 10/07/2022 (Approximate), Expires: 12/07/2022 Start: 10-07-2022 End: 12-07-2022 Choriogonadotropin.beta subunit [Units/volume] in Serum or Plasma BETA HCG QUANT TUMOR MARKER Lab Routine Seminoma of descended right testis (HCC) Expected: 10/07/2022 (Approximate), Expires: 12/07/2022 [facility] Work Phone: Comment on above: Expected: 10/07/2022 (Approximate), Expires: 12/07/2022 Start: 10-07-2022 End: 12-07-2022 Lactate dehydrogenase [Enzymatic activity/volume] in Serum or Plasma LD LACTATE DEHYDRO Lab Routine Seminoma of descended right testis (HCC) Expected: 10/07/2022 (Approximate), Expires: 12/07/2022 [facility] Work Phone: Comment on above: Expected: 10/07/2022 (Approximate), Expires: 12/07/2022 Start: 09-26-2022 Adult depression screening assessment DEPRESSION SCREENING [facility] Start: 07-09-2022 End: 09-08-2022 Choriogonadotropin.beta subunit [Units/volume] in Serum or Plasma [facility] Work Phone: Comment on above: Expected: 07/09/2022 , Expires: 09/08/2022 Start: 06-17-2022 DEPRESSION ASSESSMENT DEPRESSION ASS ESSMENT [facility] Start: 03-28-2022 End: 05-28-2022 CBC W Auto Differential panel - Blood CBC + DIFF Lab Routine Expected: 03/28/2022 (Approximate), Expires: 05/28/2022 [facility] Work Phone: Comment on above: Expected: 03/28/2022 (Approximate), Expires: 05/28/2022 Start: 03-28-2022 End: 05-28-2022 Comprehensive metabolic 2000 panel - Serum or Plasma COMP METABOLIC PANEL Lab Routine Expected: 03/28/2022 (Approximate), Expires: 05/28/2022 [facility] Work Phone: Comment on above: Expected: 03/28/2022 (Approximate), Expires: 05/28/2022 Start: 03-28-2022 End: 05-28-2022 Lactate dehydrogenase [Enzymatic activity/volume] in Serum or Plasma LD LACTATE DEHYDRO Lab Routine Expected: 03/28/2022 (Approximate), Expires: 05/28/2022 [facility] Work Phone: Comment on above: Expected: 03/28/2022 (Approximate), Expires: 05/28/2022 Start: 02-15-2022 Influenza vaccination [facility] Start: 12-26-2021 End: 02-25-2022 CBC W Auto Differential panel - Blood CBC + DIFF Lab Routine Seminoma of descended right testis (HCC) Expected: 12/26/2021 (Approximate), Expires: 02/25/2022 [facility] Work Phone: Comment on above: Expected: 12/26/2021 (Approximate), Expires: 02/25/2022 Start: 12-26-2021 End: 02-25-2022 Comprehensive metabolic 2000 panel - Serum or Plasma COMP METABOLIC PANEL Lab Routine Seminoma of descended right testis (HCC) Expected: 12/26/2021 (Approximate), Expires: 02/25/2022 [facility] Work Phone: Comment on above: Expected: 12/26/2021 (Approximate), Expires: 02/25/2022 Start: 12-26-2021 End: 02-25-2022 Lactate dehydrogenase [Enzymatic activity/volume] in Serum or Plasma LD LACTATE DEHYDRO Lab Routine Seminoma of descended right testis (HCC) Expected: 12/26/2021 (Approximate), Expires: 02/25/2022 [facility] Work Phone: Comment on above: Expected: 12/26/2021 (Approximate), Expires: 02/25/2022 Start: 06-17-2021 DEPRESSION ASSESSMENT DEPRESSION ASS ESSMENT [facility] Start: 2019 COLOGUARD (FIT-DNA) COLOGUARD (FIT-D NA) [facility] Start: 2019 Colonoscopy COLONOSCOPY [facility] Start: 2019 COLORECTAL CANCER SCREENING COLORECTAL CANCER SCREENING [facility] Start: [address] COLONOGRAPHY [facility] Start: 2019 FECAL OCCULT BLOOD FECAL OCCULT BLOO D [facility] Start: 2019 Screening for malign ant neoplasm of colon [facility] Start: 2019 SIGMOIDOSCOPY SIGMOIDOSCOPY [facility] Start: 2009 Lipid 1996 panel - S deepika or Plasma Lipid Screening [facility] Start: 2009 Lipid panel Lipid Screening [facility] Start: 2009 LIPID SCREEN LIPID SCREEN [facility] Start: 04-26-2000 Urine microalbumin profile DTaP,Tdap,Td Vaccine (1 - Tdap) [facility] Start: 1993 Hepatitis B Vaccine (1 of 3 - 19+ 3-dose series) Hepatitis B Vaccine (1 of 3 - 19+ 3-dose series) [facility] Start: 1993 Urine microalbumin profile DTAP,TDAP,TD (1 - Tdap) [facility] Start: 1992 Anxiety Screening Anxiety Screening [facility] Start: 1992 Depression Screening Depression Scre ening [facility] Start: 1992 HEPATITIS C SCREENING HEPATITIS C [facility] Start: 1992 Hepatitis C screening Hepatitis C [facility] Start: 1992 HIV SCREENING HIV SCREENING [facility] Start: 1992 HIV screening HIV Screening [facility] Start: 1979 COVID-19 VACCINE (1) COVID-19 VACCIN E (1) [facility] Start: 1974 COVID-19 VACCINE (#1) COVID-19 VACCI NE (#1) [facility] Start: 1974 HEPATITIS B (1 of 3 - 3-dose series) HEPATITIS B (1 of 3 - 3-dose series) [facility] Start: 1974 Hepatitis B Vaccine (1 of 3 - 3-dose series) Hepatitis B Vaccine (1 of 3 - 3-dose series) [facility] Start: 1974 Screening for malign ant neoplasm of colon [facility] End: 01-25-2023 Ct abdomen & pelvis w/contrast material CT ABD/PEL W IVCON Radiology Routine 1 Occurrences starting 12/26/2021 until 01/25/2023 [facility] Work Phone: Comment on above: 1 Occurrences starti ng 12/26/2021 until 01/25/2023 End: 08-08-2023 Ct abdomen & pelvis w/contrast material CT ABD/PEL W IVCON Radiology Routine 1 Occurrences starting 07/09/2022 until 08/08/2023 [facility] Work Phone: Comment on above: 1 Occurrences starti ng 07/09/2022 until 08/08/2023 End: 08-08-2023 CT CHEST W IVCON CT CHEST W IVCON Radiology Routine 1 Occurrences starting 07/09/2022 until 08/08/2023 [facility] Work Phone: Comment on above: 1 Occurrences starti ng 07/09/2022 until 08/08/2023 End: 01-25-2023 Ct thorax w/contrast material CT CHEST W IVCON Radiology Routine 1 Occurrences starting 12/26/2021 until 01/25/2023 [facility] Work Phone: Comment on above: 1 Occurrences starti ng 12/26/2021 until 01/25/2023 End: 06-21-[address] attenuation skull base mid-thigh NM PET/CT SKULL-THIGH INITIAL Radiology Routine 1 Occurrences starting 05/23/2023 until 06/21/2024 [facility] Work Phone: Comment on above: 1 Occurrences starti ng 05/23/2023 until 06/21/2024 [facility] Immunizations Immunization Date Immunization Notes Care Provider Fa [facility] 04-25-2000 TD(adult) unspecifie d formulation; Translations: [Td(adult) unspecified formulation] Ashli Avanisherron ANGULO Work Phone: [facility] 04-25-2000 tetanus and diphther ia toxoids, not adsorbed, for adult use Ashli Santamariacarlos ANGULO Work Phone: [facility] Payers Date Payer Category Payer Private Health Insurance [id number] 2024 Private Health Insurance [id number] 2023 Self-pay [id number] 2023 Unknown [id number] 2019 [facility] [id number] 2019 Unknown [employer] PPO OOS [id number] 2019-Present [phone] [address] [place] [address] PPO [id number] 2019 Unknown [id number] 2019 Unknown [id number] 1974 Unknown [id number] 1974 Unknown [id number] [id number] 1974 Unknown [id number] .593 1974 Unknown [id number] [id number] 1974 Unknown [id number] [id number] 1974 Unknown [id number] .1259 1974 Unknown [id number] .1259 1974 Unknown [id number] .1259 1974 Unknown [id number] [id number] .1259 1974 Unknown [id number] [id number] .1259 1959 Unknown [id number] Unknown [id number] Social History Date Type Detail Facility Start: 08-23-2021 End: 06-27-2023 Tobacco smoking status NHIS Never smoked tobacco [facility] Start: 08-23-2021 End: 06-27-2023 Tobacco use and exposure Smokeless tobacco non-user [facility] Start: 09-26-2021 End: 05-13-2024 Alcohol intake Ex-drinker (finding) [facility] Start: 1975 Sex Assigned At Not on file [facility] Start: 09-09-2021 End: 04-09-2022 Exposure to SARS-CoV-2 (event) Not sure [facility] Start: 11-05-2022 End: 05-13-2024 Sex Assigned At Male [facility] Start: 1975 Sex Assigned At Male [facility] Start: 11-05-2022 End: 05-13-2024 History of Social function [facility] Adult Depression Screening Assessment 0 [facility] How often to you hav e a drink containing alcohol? Never [facility] Functional Status Date Assessment Result Facility 03-23-2024 Functional Status N/A [facility] 11-27-2021 Functional Status N/A [facility] Clinical Notes 03-21-2021 to 08-03-2024 Telephone Encounter - Gavin Rea RN - 08/03/2024 10:49 AM ESTTelephone Encounter - Gavin Rea RN - 08/03/2024 10:49 AM Sixto Ni DO - 06/16/2024 9:40 AM EST Note Date & Type Note Facility 08-03-2024 Telephone encounter Note Sudhir notified of Dr. Jasso's recommendation. She will notify Jordan's PCP. Gavin Rea RN [facility] 08-03-2024 Miscellaneous Notes Sudhir notified of Dr. Jasso's recommendation. She will notify Jordan's PCP. Gavin Rea RN Sudhir called back and said Jordan noticed this lump in his rectal area approximately one week ago. She said the area is tender when wiping after a bowel movement. She said he has bright red blood per rectum with each bowel movement x 1 week. He has no history of hemorrhoids. She said he denies constipation. He denies fever. He currently takes a low dose Aspirin 81mg. Please advise. Gavin Rea RN Sudhir, pt's , left a message stating Jordan notice a lump in his rectal area when wiping his bottom. She isn't sure if he should notify Dr. Jasso or his PCP. I attempted to call Sudhir to get more information but there was no answer. Gavin Rea RN documented in this encounter [facility] 08-03-2024 Telephone encounter Note Sudhir called back and said Jordan noticed this lump in his rectal area approximately one week ago. She said the area is tender when wiping after a bowel movement. She said he has bright red blood per rectum with each bowel movement x 1 week. He has no history of hemorrhoids. She said he denies constipation. He denies fever. He currently takes a low dose Aspirin 81mg. Please advise. Gavin Rea RN [facility] 08-03-2024 Telephone encounter Note Sudhir, pt's , left a message stating Jordan notice a lump in his rectal area when wiping his bottom. She isn't sure if he should notify Dr. Jasso or his PCP. I attempted to call Sudhir to get more information but there was no answer. Gavin Rea RN [facility] 06-16-2024 History of Present illness Narrative Images from the original note were not included. Flowsheet Row Patient Outreach from 06/09/2024 in [facility] with Maritza Vaz LPN Hospital Information ED, Hospital or Assisted Facility Discharge? ED Patient has been contacted within 1 week of being seen in the ED Yes Diagnosis rib pain Discharge Date 05/30/24 Discharged To: Home Setting Discharge Hospital [facility] Engagement Call Start Time 121 Admission Date 05/30/24 Medications Discharge medications reviewed and reconciled from hospital? Yes [Start: Methocarbamol 750 MG] Is the patient having any side effects they believe may be caused by any medication additions or changes? No Does the patient have all medications ordered at discharge? Yes Nursing Interventions Nurse provided patient education Appointments Does the patient have a primary care provider? Yes [[facility]-Dr. Ni 06/16/24] Nursing Interventions Verified appointment date/time/provider Does the patient have any upcoming specialty appointments? Yes Nursing Interventions Advised patient to keep appointment Self Management Patient Teaching Does the patient have access to their discharge instructions? Yes What is the patient's perception of their health status since discharge? Improving Wrap Up Wrap Up Additional Comments XR-chest Call End Time 1217 SUBJECTIVE: Jordan Bennett is a 49 y.o. male presents with chief complaint of No chief complaint on file. Pt presents for his hospital follow up. He notes that his seeing improvement with his rib pain but has noticed that the cough that he has has been present since about Thanksgiving. Pt has done abx, tessalon pearls, inhaler but nothing has really helped. Review of Systems: Review of Systems Problem List: Patient Active Problem List Diagnosis Gastroesophageal reflux disease Hypertension (CMS/HCC) Insomnia Obstructive sleep apnea syndrome Asymptomatic microscopic hematuria Benign prostatic hyperplasia without urinary obstruction Epididymal mass Malignant neoplasm of testicle (CMS/HCC) Nocturia Seminoma of descended right testis (CMS/HCC) Testicular mass Bronchitis Past Medical History: Past Medical History: Diagnosis [...] Effort: Pulmonary effort is normal. Breath sounds: Normal breath sounds. No wheezing, rhonchi or rales. Abdominal: General: Bowel sounds are normal. [...] Diagnoses and all orders for this visit: Bronchitis Patient advised to return if symptoms worsen and/or persist despite treatment. - predniSONE (Deltasone) 20 MG tablet; Take 1 tablet (20 mg) by mouth 3 (three) times a day for 3 days, THEN 1 tablet (20 mg) 2 (two) times a day for 3 days, THEN 1 tablet (20 mg) Daily for 2 days. - HYDROcodone Bit-Homatrop MBr (Hycodan) 5-1.5 MG/5ML solution; Take 5 mL by mouth 4 (four) times a day as needed (cough) Abdominal pain Reviewed ER notes including labs and imaging. Problem is resolved. Advised to continue current meds and rtc if problem recurs Updated Medications: I have reviewed and reconciled the history and medication list with the patient today. Current Outpatient Medications: albuterol HFA 90 mcg/act inhaler, Inhale 2 puffs every 4 (four) hours if needed for wheezing, Disp: 18 g, Rfl: 3 alfuzosin ER (Uroxatral) 10 MG 24 hr tablet, Take 10 mg by mouth Daily, Disp: , Rfl: aspirin (Vazalore) 81 MG capsule, Take 81 mg by mouth in the morning., Disp: , Rfl: azithromycin (Zithromax) 250 MG tablet, 2 pills orally today, then 1 pill orally daily for 4 days, Disp: 6 tablet, Rfl: 0 lisinopril-hydroCHLOROthiazide 20-12.5 MG tablet, TAKE 2 TABLETS BY MOUTH EVERY DAY, Disp: 60 tablet, Rfl: 3 nabumetone (Relafen) 750 MG [...] 3 documented in this encounter [facility] 05-25-2024 History of Present illness Narrative Images [...] all orders for this visit: Primary hypertension ([facility]) Record Blood Pressures 2-4 times weekly and [...] 3 documented in this encounter 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 Overall patient doing well. Recent scans without suspicious areas. Medically doing well without posttreatment issues. Plan for follow-up in 3 months with labs. Repeat scans in 6 months from now. Signed by: Dimitry Jasso MD cc: Ashli Ni DO [address] [facility] [address] [place] [address] [address] Peters documented in this encounter [facility] 05-13-2024 Note HNO ID: [id number] Author: Dimitry JASSO MD Service: ? 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 KPS: 100 General Appearance: Alert and [...] inflamed follicular type change likely not suspicious o (more content not included)... [facility] 05-06-2024 History of Present illness Narrative Radiology [...] PATIENT PRESENTS WITH AN IMPLANTABLE OR ATTACHED SECTION GANG: No RADIOLOGY DEPARTMENT: CT; Exam(s) Completed: Chest Abdomen Pelvis PERIPHERAL IV DATA: Site assessment: Clean,Dry and Intact, Site disposition Discontinued SIGNED BY: RT Sebastian(R) May 06, 2024 12:36 PM documented in this encounter [facility] 05-06-2024 Note HNO ID: [id number] Author: EDIN PASTRANA RT(R) Service: ? Author [...] PATIENT PRESENTS WITH AN IMPLANTABLE OR ATTACHED SECTION GANG: No RADIOLOGY DEPARTMENT: CT; Exam(s) Completed: Chest Abdomen Pelvis PERIPHERAL IV DATA: Site assessment: Clean,Dry and Intact, Site disposition Discontinued SIGNED BY: RT Sebastian(R) May 06, 2024 12:36 PM [facility] 05-06-2024 Note HNO ID: [id number] Author: JANEE QUEZADA RN Service: ? Author [...] DATE: May 06, 2024 TIME: 12:28 PM [facility] 03-23-2024 Hospital Discharge instructions Patient Education [...] provider. Document Revised: 03/18/2023 Document Reviewed: 03/18/2023 [employer] Patient Education 2023 [employer]. 03/23/2024 10:55:39 Prostate Cancer Screening Prostate Cancer [...] treatment? Where to find more information [employer]: www.cancer.org [employer]: www.auanet.org Contact a health care [...] provider. Document Revised: 11/27/2021 Document Reviewed: 11/27/2021 [employer] Patient Education 2023 [employer]. Follow Up Care 02/10/2024 11:24:24 With:DEBBIE DELUCA, [place], URL Address: [facility] [address] [place] [address] [phone] When: Unknown Comments:10 mos (getting PSA done soon) [facility] 03-23-2024 Note Patient Education Oncology Prostate Cancer [...] Where to find more information ? The [employer]: www.cancer.org ? [employer]: www.auanet.org Contact a health care [...] of the rectum. (more content not included)... [facility] 03-23-2024 Telephone encounter Note lm for refill of ethel [facility] [place] [facility] 03-23-2024 Miscellaneous Notes lm for refill of trazodonashly [facility] [place] documented in this encounter [facility] 03-06-2024 History of Present illness Narrative Images from the original note were not included. SUBJECTIVE: Jordan Bennett is a 48 y.o. male presents with chief complaint of No chief complaint on file. Pt presents for his yearly wellness. No concerns at this time. Review of Systems: Review of Systems Problem [...] Procedure Laterality Date ORCHIECTOMY Social History: Social Determinants of Health Tobacco Use: Low Risk (02/06/2024) Received from [facility] Patient History Smoking Tobacco Use: Never Smokeless [...] Not on file Depression: Not at risk (02/06/2024) Received from [facility] PHQ-2 PHQ-2 score: 0 Housing Stability: Not on file Health [...] Effort: Pulmonary effort is normal. Breath sounds: Normal breath sounds. No wheezing, rhonchi or rales. Abdominal: General: Bowel sounds are normal. [...] or any previous visit (from the past 672 hour(s)). ASSESSMENT AND PLAN: Assessment/Plan Diagnoses and all orders for this visit: Wellness examination Completed wellness visit, no restrictions. Call or return to clinic as problems arise or for next annual wellness visit Morbid (severe) obesity due to excess calories (CMS/HCC) Labs ordered today, will follow up when results available. Discussed dietand excerszie Malignant neoplasm of descended right testis (CMS/HCC) Problem is stable, will continue with current treatment plan. Call or return to clinic if any changes occur, cont fu with oncology Chronic left shoulder pain - XR shoulder 2+ views left; Future Elevated blood sugar - Hemoglobin A1c; Future Lipid screening - Lipid panel; Future Prostate cancer screening - PSA; Future Hypertension Record Blood Pressures 2-4 times weekly and record. Return with readings at next appointment. Call with readings if sees significant changes Updated Medications: I have reviewed and reconciled the history and medication list with the patient today. Current Outpatient Medications: lisinopril-hydroCHLOROthiazide 20-12.5 MG tablet, Take 2 tablets by mouth in the morning., Disp: 180 tablet, Rfl: 3 nabumetone (Relafen) 750 MG tablet, TAKE 1 TABLET(750 MG) BY MOUTH IN THE MORNING AND IN THE EVENING WITH MEALS, Disp: 60 tablet, Rfl: 0 traZODone (Desyrel) 50 MG tablet, TAKE 1 TABLET BY MOUTH AT BEDTIME NEEDED, Disp: 30 tablet, Rfl: 3 documented in this encounter [facility] 03-02-2024 Telephone encounter Note Pt made yearly appointment on 03/06. He would like to get labwork done prior. Please call back to let him know if this is possible. Send orders to [facility] in [place]. [facility] 03-02-2024 Miscellaneous Notes Pt made yearly appointment on 03/06. He would like to get labwork done prior. Please call back to let him know if this is possible. Send orders to [facility] in [place]. documented in this encounter [facility] 02-05-2024 Note HNO ID: [id number] Author: JORDAN PETERS MD Service: ? Author [...] and symmetrical PATHOLOGY: 08/03/2021 Radical right orchiectomy ([facility]) Classic seminoma testicle: 3.2 x 3.0 x [...] * Cutaneous/subcutaneous hyperme (more content not included)... [facility] 02-05-2024 History of Present illness Narrative [...] and symmetrical PATHOLOGY: 08/03/2021 Radical right orchiectomy ([facility]) Classic seminoma testicle: 3.2 x 3.0 x [...] representing a small adenoma. 08/17/2021 Chest CTA ([facility]) No evidence of acute or chronic pulmonary [...] CC: Dr. Lewis documented in this encounter [facility] 10-29-2023 Telephone encounter Note Patient is called and scheduled for appointments spoke with his . [facility] 10-29-2023 Miscellaneous Notes Patient is called and [...] Gavin Rea RN documented in this encounter [facility] 10-28-2023 Telephone encounter Note PSS and Michelle: Please schedule as indicated per Dr. Urbina. BRM/NEO: Lab orders and CT orders pending your approval. Thanks Gavin Rea RN [facility] 10-28-2023 Telephone encounter Note Jordan completed radiation [...] Dr. Jasso please advise. Gavin Rea RN [facility] 10-22-2023 Note HNO ID: [id number] Author: Dimitry JASSO MD Service: ? 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 ASSESS (more content not included)... 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 Peters documented in this encounter [facility] 10-15-2023 History of Present illness Narrative RADIOLOGY SERVICE PROGRESS NOTE SERVICE DATE: 10/15/2023 SERVICE TIME: 2:07 PM PATIENT IDENTITY VERIFICATION COMPLETED USING TWO (2) STANDARD IDENTIFIERS: Name and Date of confirmed by patient verbally POST EXAM PIV STATUS: Discontinued PROCEDURE TYPE: NM INJECT: PET/CT BODY SCAN. 17.4 mCi F18 FDG. No other medications given.. ADMINISTRATION TIME: 1310 PATIENT DISCHARGED TO: Ambulatory patient, left [place] department area. A Diagnostic radioactive procedure has taken place, with no further precautions necessary other than routine body substance precautions. More information regarding radiation safety can be found using this link: [email or web address] [email or web address] SIGNATURE: KARLI Pérez) PATIENT NAME: Jordan Bennett DATE: October 15, 2023 TIME: 2:07 PM PAGER/CONTACT #: documented in this encounter [facility] 10-15-2023 Note HNO ID: [id number] Author: SUDHIR CHURCH RT(R) Service: ? Author [...] safety can be found using this link: [email or web address] [email or web address] 20Diagnostic%20Nuclear%20Medicine %[email or web address] SIGNATURE: RT Beto(R) PATIENT NAME: Jordan Bennett DATE: October 15, 2023 TIME: 2:07 PM PAGER/CONTACT #: [facility] 10-07-2023 Note HNO ID: [id number] Author: CATHI FAULKNER LSW Service: ? Author Type: [employer] Type: Progress Notes Filed: 10/07/2023 15:34 Note Text: SOCIAL WORK FOLLOW UP NOTE: [facility] Date of service:10/07/23 TOPICS ADDRESSED: finances and [...] will follow up as appropriate. OBDULIO Carrington [facility] 10-07-2023 History of Present illness Narrative SOCIAL WORK FOLLOW UP NOTE: [facility] Date of service:10/07/23 TOPICS ADDRESSED: finances and [...] appointment to discuss the above listed concern. ADONIS will remain available and will follow up as appropriate. HAMIDA Carrington-Eric documented in this encounter [facility] 08-13-2023 Note HNO ID: [id number] Author: Dimitry JASSO MD Service: ? 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 Peters documented in this encounter [facility] 08-09-2023 Miscellaneous Notes Per radiation: Cancel Dr Delacruz appt for 08/08 - further arrangements will be made after patient sees Dr. Jasso again. 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 AREA TREATED: Paraaortic [...] follow-up. Staff Physician Thierno Jasso M.D. / JEOVANNY 42:42 PM Electronically Signed cc: Dr. 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 COURSE: definitive Current [...] Dimitry Jasso MD documented in this encounter [facility] 07-26-2023 Miscellaneous Notes I notified Sudhir that Ebon[facility] obtained an override from the insurance and they should be able to tow picker the original prescription from [facility]. Sudhir is very thankful for the extra work created in getting this prescription approved. Gavin Rea RN I called [facility] and obtained an override so the patient is able to fill the Ondansetron for 90 today. Sudhir, pt's spouse, left a message stating [facility] has not received prior authorization for the new Zofran prescription sent yesterday. I called and spoke to [facility] and was told they received the authorization this a.m. but patient's insurance will not allow a refill until 07/31/23 even with a new prescription and increased frequency instructions. [facility] Pharmacists/Dr. Castillo: Do you have any recommendations? Dr. Castillo to possibly prescribe compazine in the interim? Thanks Gavin Rea RN documented in this encounter [facility] 07-25-2023 Miscellaneous Notes Prior authorization approved, he will be tablets to get 90 tablets per month. Jt Mortensen, PharmD, BCOP Ambulatory Pharmacy Prior Authorization Note Provider Intervention Required?: No- Pharmacy completed on your behalf. Rx Plan: Other: [facility]: ondansetron 8 mg tablets 90 per 30 days Cover My Meds Ortiz: [id number] Determination: Approved Prior Authorization/Case #: [id number] Prior Authorization Expiration: 07/24/2024 Time to PA Submission in CMM: 15 min Time to PA Determination in CMM: Same day Additional Information: For questions relating to this submission, please contact [facility] at [phone] Sudhir, pt's , called stating there is some sort of issue with Jordan's new Zofran prescription. I called [facility] and Lisa in the pharmacy said pt's insurance will only cover a 30 day supply without a prior auth. Lisa will send an auth request to our office. Sudhir notified of the above and will check back with their local pharmacy for an update. Thanks Gavin Rea Rn documented in this encounter [facility] 07-25-2023 Nurse Note Jordan Bennett presents in office today for: Lab Draw only . Ordering Provider: Thierno Jasso M.D. Test (s) ordered: CBC Method for obtaining blood: Phlebotomy was performed, accessing left hand vein. Needle removed intact. Dressing secured. Patient denies discomfort, dizziness, light-headedness or weakness and left the department without assist. Gavin Rea LPN documented in this encounter [facility] 07-25-2023 Miscellaneous Notes Please sign for Dr Jasso pt. 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 COURSE: definitive Current [...] Dimitry Jasso MD documented in this encounter [facility] 07-18-2023 Nurse Note Jordan Theresa Bennett presents in office today for: Lab Draw only . Ordering Provider: Thierno Jasso M.D. Test (s) ordered: CBC Method for obtaining blood: Phlebotomy was performed, accessing right hand vein. Needle removed intact. Dressing secured. Patient denies discomfort, dizziness, light-headedness or weakness and left the department without assist. Gavin Rea LPN documented in this encounter [facility] 06-20-2023 Evaluation note Encounter Date Diagnosis [...] sleepiness, or poor response to treatment. . [employer] Other [id number] History of Present illness Narrative* Lisa Martinez [...] 07, 2023 TIME: 1:40 PM * Sudhir Church RT(R) - 06/07/2023 1:30 PM EST RADIOLOGY SERVICE PROGRESS NOTE SERVICE DATE: 06/07/2023 SERVICE TIME: 1:49 PM PATIENT IDENTITY VERIFICATION COMPLETED USING TWO (2) STANDARD IDENTIFIERS: Name and Date of confirmed by patient verbally FPOST EXAM PIV STATUS: Discontinued PROCEDURE TYPE: NM INJECT: PET/CT BODY SCAN. 20.0 mCi F18 FDG. No other medications given.. ADMINISTRATION TIME: 1338 PATIENT DISCHARGED TO: Ambulatory patient, left [place] department area. A Diagnostic radioactive procedure has taken place, with no further precautions necessary other than routine body substance precautions. More information regarding radiation safety can be found usingthis link: [email or web address] SIGNATURE: RT Beto(R) PATIENT NAME: Jordan Bennett DATE: June 07, 2023 TIME: 1:49 PM PAGER/CONTACT #: [facility] History of Present illness Narrative* Jordan [...] and symmetrical PATHOLOGY: 08/03/2021 Radical right orchiectomy ([facility]) Classic seminoma testicle: 3.2 x 3.0 x [...] representing a small adenoma. 08/17/2021 Chest CTA ([facility]) No evidence of acute or chronic pulmonary [...] MD CC: Dr. Lewis documented [facility] History of Present illness Narrative* Lisa Martinez [...] 17, 2023 10:37 AM documented in [facility] encounter[facility] Miscellaneous Notes* Telephone Encounter - Yuliya Myers RN - 02/19/2023 8:43 AM EDT VM left with MM message. Pt is encouraged to call for any questions or concerns. Yuliya Myers RN * Telephone Encounter - Yuliya Myers RN - 02/19/2023 8:43 AM EDT ----- Message from Rosette Sethi PA-C sent at 02/19/2023 8:18 AM EDT ----- Please call with negative results documented in [facility] encounterC[facility] History of Present illness Narrative* Rosette Sethi PA-C - 02/14/2023 3:00 PM EDT PATIENT NAME: Jordan Bennett DATE: 02/14/2023 PRIMARY CARE PHYSICIAN: Ashli Ni DO OTHER PHYSICIANS: Dr. Lewis, Dr. 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 08/17/2021 Chest CTA ([facility]) No evidence of acute or chronic pulmonary [...] on current medications, continue per PCP. Rosette Sethi PA-C CC: Dr. 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 08/17/2021 Chest CTA ([facility]) No evidence of acute or chronic pulmonary [...] MD CC: Dr. Lewis documented in this encounterC[facility] Evaluation note* Encounter Date Diagnosis Assessment Notes [...] sleepiness, or poor response to treatment. . 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 MEDICATIONS: Current Outpatient Medications Medication Sig lisinopril [...] and atrophy. 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 08/17/2021 Chest CTA ([facility]) No evidence of acute or chronic pulmonary [...] MD CC: Dr. 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 MEDICATIONS: Current Outpatient Medications Medication Sig lisinopril [...] and atrophy. 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 08/17/2021 Chest CTA ([facility]) No evidence of acute or chronic pulmonary [...] MD CC: Dr. Lewis documented in this encounterC[facility] Hospital Discharge instructions Patient Education 11/27/2021 16:46:36 [...] 06/03/2006 Document Revised: 02/20/2019 Document Reviewed: 05/03/2017 [employer] Patient Education 2020 [employer]. 11/27/2021 16:46:26 Testicular Cancer Testicular Cancer Testicular [...] children. Follow these instructions at home: Take njqj-jzr-nczxocy and prescription medicines only as told by [...] 04/26/2006 Document Revised: 09/24/2019 Document Reviewed: 08/30/2017 [employer] Patient Education 2020 [employer] Follow Up Care 11/02/2021 10:22:34 With:DEBBIE DELUCA, Chantal Grande, URL Address: [facility] [address] [place] [address]- [phone] When: Unknown [facility] 04-12-2022 History of Present illness Narrative* Jordan Peters MD - 09/26/2021 8:40 AM EDT PATIENT NAME: Jordan Bennett DATE: 09/26/2021 PRIMARY CARE PHYSICIAN: Ashil Ni DO OTHER PHYSICIANS: Dr. Lewis, Dr. [...] and atrophy. 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 08/17/2021 Chest CTA ([facility]) No evidence of acute or chronic pulmonary [...] MD CC: Dr. Lewis documented in this encounterC[facility]04-[facility]22 History of Present illness Narrative* Janee Raines [...] 19, 2021 TIME: 2:40 PM * Sudhir Church, RT(R) - 09/19/2021 2:15 PM EDT Radiology [...] 19, 2021 3:10 PM documented in this encounterC[facility]04-[facility]22 Miscellaneous Notes* Telephone Encounter - Ellyn Nguyen - 12/20/2021 9:58 AM EDT Patient coming in to see you on Saturday12/26/21 for follow up with labs. Please add lab orders. Thanks, Ellyn Nguyen MA documented in this encounterC[facility]03-[facility]-2022 NotePROCEDURE: CTA CHEST WO W CON REASON [...] 3-D images were rendered on a separate [employer] workstation. Images were reviewed PACS. Dose reduction [...] Electronically authenticated by: EVELYN CUEVAS Date: 2021-08-17 16:31[id number] NoteEXAMINATION: XR CHEST 2 V HISTORY: Pre-surgery [...] Electronically authenticated by: KRYS ASHER Date: 2021-08-02 16:17[facility]11-09-2021 Evaluation note* Encounter Date Diagnosis Assessment Notes Treatment Notes Treatment Clinical Notes Apr, Right shoulder tendonitis (ICD-10 - M77.8) Patient is progressing well at this time. Continue gentle motion and strengthening exercises. Formal therapy order provided. Call with questions/concerns. [employer] Other 10-05-2021 Evaluation note* Encounter Date Diagnosis [...] treatment, may consider MRI for further evaluation. 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 [facility]* Diagnosis 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 [facility] noteNo assessment information availableMer[facility] Work Phone: Evaluation note* Diagnosis 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 Essential hypertension Unspecified essential hypertension [facility] Diagnosis 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 Essential hypertension Unspecified essential hypertension documented in this encounter [facility] note* Diagnosis 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 documented in this encounter [facility] note* Diagnosis Malignant neoplasm of testicle, unspecified laterality, unspecified whether descended or undescended (HCC) documented in this encounter [facility] note* Diagnosis Malignant neoplasm of testicle, unspecified laterality, unspecified whether descended or undescended (HCC)- Primary documented in this encounter [facility] note* Diagnosis Malignant neoplasm of testicle, unspecified laterality, unspecified whether descended or undescended (HCC) documented in this encounter [facility] note* Diagnosis Malignant neoplasm of testicle, unspecified laterality, unspecified whether descended or undescended (HCC)- Primary documented in this encounter [facility] note* Diagnosis Malignant neoplasm of testicle, unspecified laterality, unspecified whether descended or undescended (HCC)- Primary documented in this encounter [facility] note* Diagnosis Malignant neoplasm of testicle, unspecified laterality, unspecified whether descended or undescended (HCC)- Primary documented in this encounter [facility] note* Diagnosis 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 documented in this encounter [facility] note* Diagnosis 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 documented in this encounter [facility] note* Diagnosis Malignant neoplasm of testicle, unspecified laterality, unspecified whether descended or undescended (HCC) documented in this encounter [facility] note* Diagnosis Seminoma of descended right testis (HCC) documented in this encounter [facility] note* Diagnosis Seminoma of descended right testis (HCC) documented in this encounter [facility] note* Diagnosis 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) Malignant neoplasm of other and unspecified testis Seminoma of descended right testis (HCC) documented in this encounter [facility] note* Diagnosis Insomnia, unspecified type documented in this encounter [facility] note* Diagnosis Malignant neoplasm of testicle, unspecified laterality, unspecified whether descended or undescended (HCC) [facility]* Diagnosis Acute right ankle pain documented [facility]* Diagnosis 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 documented in this encounter [facility] note* Diagnosis Bronchitis- Primary Bronchitis, not specified as acute or chronic Primary hypertension (CMS/HCC) Unspecified essential hypertension Obstructive sleep apnea syndrome Obstructive sleep apnea (adult) (pediatric) documented in this encounter [facility]* Diagnosis Wellness examination- Primary Morbid (severe) obesity due to excess calories (CMS/HCC) Malignant neoplasm of descended right testis (CMS/HCC) Malignant neoplasm of other and unspecified testis Chronic left shoulder pain Pain in joint, shoulder region Elevated blood sugar Other abnormal glucose Lipid screening Screening for lipoid disorders Prostate cancer screening Special screening for malignant neoplasm of prostate [facility] Diagnosis Acute right ankle pain documented in this encounter [facility]* Diagnosis Acute right ankle pain documented in this encounter [facility]* Diagnosis Bronchitis- Primary Bronchitis, not specified as acute or chronic Abdominal muscle pain documented in this encounter [facility] HealthcareHistory general Narrative - Reported* Type Description Date Medical History hypertension Medical History sleep apnea [employer] Other Progress note No data available for this section [facility] reason for referral (narrative)* Diagnostic Procedure Only (Routine) - Open Specialty Diagnoses / Procedures Referred By Contac t Referred To Contact MOLECULAR & FUNCTIONAL IMAGING Diagnoses 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) Procedures NM PET/CT SKULL-THIGH INITIAL PET IMAGING CT ATTENUATION SKULL BASE MID-THIGH Jordan Peters MD [address] [place] [address] [place] [address] Molecular & Functional Imaging [address] [place] [address] Referral ID Status Reason Start Date Expiration Date V isits Requested Visits Authorized [id number] Open Auto-Generate d Referral 05/23/2023 06/21/2024 1 1 [facility] for referral (narrative)* Diagnostic Procedure Only (Routine) - Pending Review Specialty Diagnoses / Procedures Referred By Contac t Referred To Contact MOLECULAR & FUNCTIONAL IMAGING Diagnoses Malignant neoplasm of testicle, unspecified laterality, unspecified whether descended or undescended (HCC) Procedures NM PET/CT SKULL-THIGH SUBSEQUENT PET IMAGING CT ATTENUATION SKULL BASE MID-THIGH Dimitry Jasso MD [address] [place] [address] [place] [address] Molecular & Functional Imaging [address] [place] [address] Referral ID Status Reason Start Date Expiration Date Visits Requested Visits Authorized [id number] Pending Review Auto-Generat ed Referral 10/12/2023 09/11/2024 1 1 [facility] for referral (narrative)* Diagnostic Procedure Only (Routine) - New Request Specialty Diagnoses / Procedures Referred By Contac t Referred To Contact MOLECULAR & FUNCTIONAL IMAGING Diagnoses Malignant neoplasm of testicle, unspecified laterality, unspecified whether descended or undescended (HCC) Procedures NM PET/CT SKULL-THIGH SUBSEQUENT PET IMAGING CT ATTENUATION SKULL BASE MID-THIGH Dimitry Jasso MD [address] [place] [address] [place] [address] Molecular [facility] Functional Imaging [address] [place] [address] Referral ID Status Reason Start Date Expiration Date Visits Requested Visits Authorized [id number] New Request Auto-Generat ed Referral 10/12/2023 09/11/2024 1 1 [facility] for referral (narrative)* Diagnostic Procedure Only (Routine) - Closed Specialty Diagnoses / Procedures Referred By Contac t Referred To Contact MOLECULAR & FUNCTIONAL IMAGING Diagnoses 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) Procedures NM PET/CT SKULL-THIGH INITIAL PET IMAGING CT ATTENUATION SKULL BASE MID-THIGH Jordan Peters MD [address] [place], [place] [address]J[place] [address] Molecular & Functional Imaging [address] [id number] Referral ID Status Reason Start Date Expiration Date V isits Requested Visits Authorized [id number] Closed Auto-Generate d Referral 06/07/2023 06/16/2023 1 1 [facility] Summary Purpose Family History No Family History [...] IVCON DIAGNOSTIC COMPUTED TOMOGRAPHY THORAX W/CONTRAST Rosette Sethi PA-C [address] [place] [address] [place] [address] Ct [facility] [place] [id number] Referral ID Status Reason Start Date Expiration Date Visits Requested Visits Authorized [id number] Pending Review Auto-Generat ed Referral 3 03/15/2024 1 1 Specialty Diagnoses / Procedures Referred By Contac t Referred To Contact CT IMAGING Diagnoses Seminoma of descended right testis (HCC) Procedures CT ABD/PEL W IVCON CT ABD & PELVIS W/CONTRAST Rosette Sethi PA-C [address] [place] [address] [place] [address] Ct [facility] [place] [id number] Referral ID Status Reason Start Date Expiration Date Visits Requested Visits Authorized [id number] Pending Review Auto-Generat ed Referral 3 03/15/2024 1 1 Specialty Diagnoses / Procedures Referred By Contac t Referred To Contact CT IMAGING Diagnoses 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) Procedures CT CHEST W IVCON DIAGNOSTIC COMPUTED TOMOGRAPHY THORAX W/CONTRAST Jordan Peters MD [address] [place] [address] Ct Imaging Referral ID Status Reason Start Date Expiration Date Visits Requested Visits Authorized [id number] Pending Review Auto-Generat ed Referral 12/26/2021 01/25/2023 1 1 Specialty Diagnoses / Procedures Referred By Horacio vegas Referred To Contact CT IMAGING Diagnoses 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) Procedures CT ABD/PEL W IVCON CT ABD & PELVIS W/CONTRAST Jordan Peters MD [address] [place] [address] [place] [address] Ct Imaging Referral ID Status Reason Start Date Expiration Date Visits Requested Visits Authorized [id number] Pending Review Auto-Generat ed Referral 12/26/2021 01/25/2023 [...] section and content) DATE CREATED AUTHOR 07/28/2021 [facility] dical Specialist DATE CREATED AUTHOR AUTHOR'S ORGANIZ ATION 08/21/2021 [facility] DATE CREATED AUTHOR AUTHOR'S ORGANIZ ATION 07/26/2023 [facility] DATE CREATED AUTHOR AUTHOR'S ORGANIZ ATION 04/10/2024 [facility] DATE CREATED AUTHOR AUTHOR'S ORGANIZ ATION 06/18/2024 [facility] dical Specialists [facility] DATE CREATED AUTHOR AUTHOR'S ORGANIZ ATION 08/04/2024 [facility] Source Comments (unrecognize d section and content) In the event this informatio n is protected by the Federal Confidentiality of Alcohol and Drug Abuse Patient Records regulations: The Federal rules restrict any use of the information to criminally investigate or prosecute any alcohol or drug abuse patient.[facility] HospitalIn the event this information is protected by the Federal Confidentiality of Alcohol and Drug Abuse Patient Records regulations: The Federal rules restrict any use of the information to criminally investigate or prosecute any alcohol or drug abuse patient.[facility] HospitalIn the event this information is protected by the Federal Confidentiality of Alcohol and Drug Abuse Patient Records regulations: The Federal rules restrict any use of the information to criminally investigate or prosecute any alcohol or drug abuse patient.[facility] HospitalIn the event this information is protected by the Federal Confidentiality of Alcohol and Drug Abuse Patient Records regulations: The Federal rules restrict any use of the information to criminally investigate or prosecute any alcohol or drug abuse patient.[facility] HospitalIn the event this information is protected by the Federal Confidentiality of Alcohol and Drug Abuse Patient Records regulations: The Federal rules restrict any use of the information to criminally investigate or prosecute any alcohol or drug abuse patient.[facility] HospitalIn the event this information is protected by the Federal Confidentiality of Alcohol and Drug Abuse Patient Records regulations: The Federal rules restrict any use of the information to criminally investigate or prosecute any alcohol or drug abuse patient.[facility] HospitalIn the event this information is protected by the Federal Confidentiality of Alcohol and Drug Abuse Patient Records regulations: The Federal rules restrict any use of the information to criminally investigate or prosecute any alcohol or drug abuse patient.[facility] HospitalIn the event this information is protected by the Federal Confidentiality of Alcohol and Drug Abuse Patient Records regulations: The Federal rules restrict any use of the information to criminally investigate or prosecute any alcohol or drug abuse patient.[facility] HospitalIn the event this information is protected by the Federal Confidentiality of Alcohol and Drug Abuse Patient Records regulations: The Federal rules restrict any use of the information to criminally investigate or prosecute any alcohol or drug abuse patient.[facility] HospitalIn the event this information is protected by the Federal Confidentiality of Alcohol and Drug Abuse Patient Records regulations: The Federal rules restrict any use of the information to criminally investigate or prosecute any alcohol or drug abuse patient.[facility] HospitalIn the event this information is protected by the Federal Confidentiality of Alcohol and Drug Abuse Patient Records regulations: The Federal rules restrict any use of the information to criminally investigate or prosecute any alcohol or drug abuse patient.[facility] HospitalIn the event this information is protected by the Federal Confidentiality of Alcohol and Drug Abuse Patient Records regulations: The Federal rules restrict any use of the information to criminally investigate or prosecute any alcohol or drug abuse patient.[facility] HospitalIn the event this information is protected by the Federal Confidentiality of Alcohol and Drug Abuse Patient Records regulations: The Federal rules restrict any use of the information to criminally investigate or prosecute any alcohol or drug abuse patient.[facility] HospitalIn the event this information is protected by the Federal Confidentiality of Alcohol and Drug Abuse Patient Records regulations: The Federal rules restrict any use of the information to criminally investigate or prosecute any alcohol or drug abuse patient.[facility] HospitalIn the event this information is protected by the Federal Confidentiality of Alcohol and Drug Abuse Patient Records regulations: The Federal rules restrict any use of the information to criminally investigate or prosecute any alcohol or drug abuse patient.[facility] HospitalIn the event this information is protected by the Federal Confidentiality of Alcohol and Drug Abuse Patient Records regulations: The Federal rules restrict any use of the information to criminally investigate or prosecute any alcohol or drug abuse patient.[facility] HospitalIn the event this information is protected by the Federal Confidentiality of Alcohol and Drug Abuse Patient Records regulations: The Federal rules restrict any use of the information to criminally investigate or prosecute any alcohol or drug abuse patient.[facility] HospitalIn the event this information is protected by the Federal Confidentiality of Alcohol and Drug Abuse Patient Records regulations: The Federal rules restrict any use of the information to criminally investigate or prosecute any alcohol or drug abuse patient.[facility] HospitalIn the event this information is protected by the Federal Confidentiality of Alcohol and Drug Abuse Patient Records regulations: The Federal rules restrict any use of the information to criminally investigate or prosecute any alcohol or drug abuse patient.[facility] HospitalIn the event this information is protected by the Federal Confidentiality of Alcohol and Drug Abuse Patient Records regulations: The Federal rules restrict any use of the information to criminally investigate or prosecute any alcohol or drug abuse patient.[facility] HospitalIn the event this information is protected by the Federal Confidentiality of Alcohol and Drug Abuse Patient Records regulations: The Federal rules restrict any use of the information to criminally investigate or prosecute any alcohol or drug abuse patient.[facility] HospitalIn the event this information is protected by the Federal Confidentiality of Alcohol and Drug Abuse Patient Records regulations: The Federal rules restrict any use of the information to criminally investigate or prosecute any alcohol or drug abuse patient.[facility] HospitalIn the event this information is protected by the Federal Confidentiality of Alcohol and Drug Abuse Patient Records regulations: The Federal rules restrict any use of the information to criminally investigate or prosecute any alcohol or drug abuse patient.[facility] HospitalIn the event this information is protected by the Federal Confidentiality of Alcohol and Drug Abuse Patient Records regulations: The Federal rules restrict any use of the information to criminally investigate or prosecute any alcohol or drug abuse patient.[facility] HospitalIn the event this information is protected by the Federal Confidentiality of Alcohol and Drug Abuse Patient Records regulations: The Federal rules restrict any use of the information to criminally investigate or prosecute any alcohol or drug abuse patient.[facility] HospitalIn the event this information is protected by the Federal Confidentiality of Alcohol and Drug Abuse Patient Records regulations: The Federal rules restrict any use of the information to criminally investigate or prosecute any alcohol or drug abuse patient.[facility] HospitalIn the event this information is protected by the Federal Confidentiality of Alcohol and Drug Abuse Patient Records regulations: The Federal rules restrict any use of the information to criminally investigate or prosecute any alcohol or drug abuse patient.[facility] HospitalIn the event this information is protected by the Federal Confidentiality of Alcohol and Drug Abuse Patient Records regulations: The Federal rules restrict any use of the information to criminally investigate or prosecute any alcohol or drug abuse patient.[facility] HospitalIn the event this information is protected by the Federal Confidentiality of Alcohol and Drug Abuse Patient Records regulations: The Federal rules restrict any use of the information to criminally investigate or prosecute any alcohol or drug abuse patient.[facility] HospitalIn the event this information is protected by the Federal Confidentiality of Alcohol and Drug Abuse Patient Records regulations: The Federal rules restrict any use of the information to criminally investigate or prosecute any alcohol or drug abuse patient.[facility] HospitalIn the event this information is protected by the Federal Confidentiality of Alcohol and Drug Abuse Patient Records regulations: The Federal rules restrict any use of the information to criminally investigate or prosecute any alcohol or drug abuse patient.[facility] HospitalIn the event this information is protected by the Federal Confidentiality of Alcohol and Drug Abuse Patient Records regulations: The Federal rules restrict any use of the information to criminally investigate or prosecute any alcohol or drug abuse patient.[facility] HospitalIn the event this information is protected by the Federal Confidentiality of Alcohol and Drug Abuse Patient Records regulations: The Federal rules restrict any use of the information to criminally investigate or prosecute any alcohol or drug abuse patient.[facility] Reason for Visit (unrecogniz ed section and content) Reason Comments Radiology NM Specialty Diagnoses / Procedures Referred By Horacio vegas Referred To Contact MOLECULAR & FUNCTIONAL IMAGING Diagnoses 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) Procedures NM PET/CT SKULL-THIGH INITIAL PET IMAGING CT ATTENUATION SKULL BASE MID-THIGH Jordan Peters MD [address] [place] [address] [place] [address] Molecular & Functional Imaging [address] [place] [address] Referral ID Status Reason Start Date Expiration Date V isits Requested Visits Authorized [id number] Closed Auto-Generate d Referral 06/07/2023 06/16/2023 1 1 Reason Comments Testicular Cancer Specialty Diagnoses / Procedures Referred By Horacio vegas Referred To Contact [facility] Diagnoses office visit Procedures office visit Self [facility] [place] [address] Referral ID Status Reason Start Date Expiration Date Visits Requested Visits Authorized [id number] Authorized Financial Clearance Required - Self Pay [...] Appointment Specialty Diagnoses / Procedures Referred By Contac t Referred To Contact [facility] Diagnoses Seminoma of descended right testis Procedures OFFICE CONSULTATION NEW/ESTAB PATIENT 15 MIN Jordan Peters MD [address] [place] [address] [place] [address] Referral ID Status Reason Start Date Expiration Date Visits Requested Visits Authorized [id number] Authorized Financial Clearance Required - Self Pay Patient Cleared - Qualified HCAP/501/FA Referred for [id number] 02/05/2024 05/05/2024 99 99 Specialty Diagnoses / Procedures Referred By Contac t Referred To Contact [facility] Diagnoses office visit Procedures [place] [address] Referral ID Status Reason Start Date Expiration Date V isits Requested Visits Authorized [id number] Closed Financial Clearance Required - Self Pay Patient Cleared - Qualified HCAP/501/FA 10/08/2023 01/06/2024 99 99 Specialty Diagnoses / Procedures Referred By Contac t Referred To Contact Radiation Oncology / RADIATION ONCOLOGY Diagnoses Malignant neoplasm of descended right testis SIM treating Paraortics eng 3D 15FX PLUS SIM Procedures 3-D RADIOTHERAPY PLAN DOSE-VOLUME HISTOGRAMS SIMULATION [place] 3D 15FX PLUS SIM Dimitry Jasso MD [address] [place] [address] [place] [address] Dimitry Jasso MD [address] [place] [address] [place] [address] Referral ID Status Reason Start Date Expiration Date Visits Re quested Visits Authorized [id number] Closed 07/05/2023 10/02/2023 [address] Specialty Diagnoses / Procedures Referred By Contac t Referred To Contact CT IMAGING Diagnoses Seminoma of descended right testis (HCC) Procedures CT CHEST W IVCON DIAGNOSTIC COMPUTED TOMOGRAPHY THORAX W/CONTRAST Rosette Sethi PA-C [address] [place] [address] Ct Imaging [facility] Referral ID Status Reason Start Date Expiration Date V isits Requested Visits Authorized [id number] Closed Auto-Generate d Referral 04/25/2023 06/16/2023 1 1 Specialty Diagnoses / Procedures Referred By Contac t Referred To Contact CT IMAGING Diagnoses 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) Procedures CT CHEST W IVCON DIAGNOSTIC COMPUTED TOMOGRAPHY THORAX W/CONTRAST Jordan Peters MD [address] [place] [address] [place] [address] [place] [address] Referral ID Status Reason Start Date Expiration Date V isits Requested Visits Authorized [id number] Closed Auto-Generate d Referral 09/18/2022 06/16/2023 1 1 Referral ID Status Reason Start Date Expiration Date V isits Requested Visits Authorized [id number] Closed Auto-Generate d Referral 03/12/2022 06/16/2022 1 1 Referral ID Status Reason Start Date Expiration Date V isits Requested Visits Authorized [id number] Closed Auto-Generate d Referral 09/05/2021 06/16/2022 1 1 Reason Onset Date Comments Med Refill 03/23/2024 Reason Comments Radiology NM Specialty Diagnoses / Procedures Referred By Contac t Referred To Contact CT IMAGING Diagnoses Malignant neoplasm of testicle, unspecified laterality, unspecified whether descended or undescended (HCC) Procedures CT CHEST W IVCON DIAGNOSTIC COMPUTED TOMOGRAPHY THORAX W/CONTRAST Jordan Peters MD [address] [place] [address] Ct Imaging [facility] Referral ID Status Reason Start Date Expiration Date V isits Requested Visits Authorized [id number] Closed Auto-Generate d Referral 04/23/2024 06/16/2024 1 1 Reason Comments Med Refill Reason Comments Cough Nasal Congestion Reason Comments Lump Care Teams (unrecognized sec tion and content) Team Status: Active Member Role Status Dates Caity Ni DO Primary Care Provider Active Team Status: Inactive Member Role Status Dates Caity Ni DO Primary Care Provider Active Krys lAlen MD Attending Provider Active [employer]stone Carver Relationship Specialty Start Date End Date Ashli Ni Jr. [address] [place] [address] PCP - General Family Practice 08/09/21 Chantal Lewis MD [address] [place] [address] Referring Urology 08/09/21 Tombstone Carver Relationship Specialty Start Date End Date Ashli Ni Jr. [address] [place] [address] PCP - General Family Practice 08/09/21 Chantal Lewis MD [address] [place] [address] Referring Urology 08/09/21 Team Status: Inactive Member Role Status Hilario Ni DO Primary Care Provider, Referring Provider Active Krys Allen MD Attending Provider Active [employer]stone Carver Relationship Specialty Start Date End Date Ashli Ni Jr. [address] [place] [address] PCP - General Family Medicine 08/09/21 Chantal Lewis MD [address] [place] [address] Referring Urology 08/09/21 Tombstone Carver Relationship Specialty Start Date End Date Ashli Ni Jr. [address] [place] [address] PCP - General Family Medicine 08/09/21 Chantal Lewis MD [address] [place] [address] Referring Urology 08/09/21 Tombstone Carver Relationship Specialty Start Date End Date Ashli Ni Jr. [address] [place] [address] PCP - General Family Medicine 08/09/21 Chantal Lewis MD [address] [place] [address] Referring Urology 08/09/21 Tombstone Carver Relationship Specialty Start Date End Date Ashli Ni Jr. [address] [place] [address] PCP - General Family Medicine 08/09/21 Chantal Lewis MD [address] [place] [address] Referring Urology 08/09/21 Tombstone Carver Relationship Specialty Start Date End Date Ashli Ni Jr., DO [address] [place] [address] PCP - General Family Medicine 08/09/21 Chantal Lewis MD [address] [place] [address] Referring Urology 08/09/21 Tombstone Carver Relationship Specialty Start Date End Date Ashli Ni Jr., DO [address] [place] [address] PCP - General Family Medicine 08/09/21 Chantal Lewis MD [address] [place] [address] Referring Urology 08/09/21 Cathi Faulkner LSW C[employer] Grinding Mill Operator 06/28/23 [employer] Carver Relationship Specialty Start Date End Date Ashli Ni Jr., DO [address] [place] [address] PCP - General Family Medicine 08/09/21 Chantal Lewis MD [address] [place] [address] Referring Urology 08/09/21 Cathi Faulkner LSW [employer] Grinding [employer] Operator 06/28/23 [employer] Carver Relationship Specialty Start Date End Date Ashli Ni Jr., DO [address] [place] [address] PCP - General Family Medicine 08/09/21 Chantal Lewis MD [address] [place] [address] Referring Urology 08/09/21 Cathi Faulkner LSW [employer] Grinding [employer] Operator 06/28/23 [employer]stone Carver Relationship Specialty Start Date End Date Ashli Ni Jr., DO [address] [place] [address] PCP - General Family Medicine 08/09/21 Chantal Lewis MD [address] [place] [address] Referring Urology 08/09/21 Cathi Faulkner LSW [employer] Grinding [employer] Operator 06/28/23 [employer]stone Carver Relationship Specialty Start Date End Date Ashli Ni Jr., DO [address] [place] [address] PCP - General Family Medicine 08/09/21 Chantal Lewis MD [address] [place] [address] Referring Urology 08/09/21 Cathi Faulkner LSW [employer] Grinding [employer] Operator 06/28/23 [employer] Carver Relationship Specialty Start Date End Date Last Ashli Flor Wan, DO [address] [place] [address] PCP - General Family Medicine 08/09/21 Chantal Lewis MD [address] [place] [address] Referring Urology 08/09/21 Cathi Faulkner LSW C[employer] Grinding Mill Operator 06/28/23 [employer] Carver Relationship Specialty Start Date End Date Last Ashli Flor Wan, DO [address] [place] [address] PCP - General Family Medicine 08/09/21 Chantal Lewis MD [address] [place] [address] Referring Urology 08/09/21 Cathi Faulkner LSW C[employer] Grinding Mill Operator 06/28/23 [employer] Carver Relationship Specialty Start Date End Date LastAshli Jr., DO [address] [place] [address] PCP - General Family Medicine 08/09/21 Chantal Lewis MD [address] [place] [address] Referring Urology 08/09/21 Cathi Faulkner LSW C[employer] Grinding [employer] Operator 06/28/23 [employer] Carver Relationship Specialty Start Date End Date Last Ashli Flor Wan, DO [address] [place] [address] PCP - General Family Medicine 08/09/21 Chantal Lewis MD [address] [place] [address] Referring Urology 08/09/21 Cathi Faulkner LSW C[employer] Grinding Mill Operator 06/28/23 Tombstone Carver Relationship Specialty Start Date End Date Ashli Ni Jr., DO [address] [place] [address] PCP - General Family Medicine 08/09/21 Chantal Lewis MD [address] [place] [address] Referring Urology 08/09/21 Cathi Faulkner LSW [employer] Grinding [employer] Operator 06/28/23 Tombstone Carver Relationship Specialty Start Date End Date Ashli Ni Jr., DO [address] [place] [address] PCP - General Family Medicine 08/09/21 Chantal Lewis MD [address] [place] [address] Referring Urology 08/09/21 Cathi Faulkner LSW [employer] Grinding [employer] Operator 06/28/23 [employer]ombstone Carver Relationship Specialty Start Date End Date Ashli Ni Jr., DO [address] [place] [address] PCP - General Family Medicine 08/09/21 Chantal Lewis MD [address] [place] [address] Referring Urology 08/09/21 Kaushik, Cathi, ELECTRICAL TIMING DEVICE CALIBRATOR C[employer] Grinding Mill Operator 06/28/23 Tombstone Carver Relationship Specialty Start Date End Date Ashli Ni ., DO [address] [place] [address] PCP - General Family Medicine 08/09/21 Chantal Lewis MD [address] [place] [address] Referring Urology 08/09/21 Tombstone Carver Relationship Specialty Start Date End Date Ashli Ni Flor Wan, DO [address] [place] [address] PCP - General Family Medicine 08/09/21 Chantal Lewis MD [address] [place] [address] Referring Urology 08/09/21 Tombstone Carver Relationship Specialty Start Date End Date Ashli Ni Flor Vasquez., DO [address] [place] [address] PCP - General Family Medicine 08/09/21 Chantal Lewis MD [address] [place] [address] Referring Urology 08/09/21 Tombstone Carver Relationship Specialty Start Date End Date RosalioAshli gonzalez Jr., DO [address] [place] [address] PCP - General Family Medicine 08/09/21 Chantal Lewis MD [address] [place] [address] Referring Urology 08/09/21 Tombstone Carver Relationship Specialty Start Date End Date Ashli Ni Jr., DO [address] [place] [address] PCP - General Family Medicine 08/09/21 Chantal Lewis MD [address] [place] [address] Referring Urology 08/09/21 Tombstone Carver Relationship Specialty Start Date End Date Ashli Ni DO [address] [place] [address] PCP - General Family Medicine 10/23/22 Tombstone Carver Relationship Specialty Start Date End Date Ashli Ni DO [address] [place] [address] PCP - General Family Medicine 10/23/22 Tombstone Carver Relationship Specialty Start Date End Date Ashli Ni Jr., DO [address] [place] [address] PCP - General Family Medicine 08/09/21 Chantal Lewis MD [address] [place] [address] Referring Urology 08/09/21 Cathi Faulkner LSW C[employer] Grinding Mill Operator 06/28/23 Tombstone Carver Relationship Specialty Start Date End Date Ashli Ni DO [address] [place] [address] PCP - General Family Medicine 10/23/22 Tombstone Carver Relationship Specialty Start Date End Date Ashli Ni DO [address] [place] [address] PCP - General Family Medicine 10/23/22 Ashli Ni, DO [address] [place] [address] PCP - [facility] 01/20/24 Tombstone Carver Relationship Specialty Start Date End Date Ashli Ni, DO [address] [place] [address] PCP - General Family Medicine 10/23/22 Ashli Ni, DO [address] [place] [address] PCP - [facility] 01/20/24 Tombstone Carver Relationship Specialty Start Date End Date Ashli Ni, DO [address] [place] [address] PCP - General Family Medicine 10/23/22 Tombstone Carver Relationship Specialty Start Date End Date Ashli Ni, DO [address] [place] [address] PCP - General Family Medicine 10/23/22 Tombstone Carver Relationship Specialty Start Date End Date Ashli Ni, DO [address] [place] [address] PCP - General Family Medicine 10/23/22 Ashli Ni, DO [address] [place] [address] PCP - [facility] 01/20/24 Tombstone Carver Relationship Specialty Start Date End Date Ashli Ni, DO [address] [place] [address] PCP - General Family Medicine 10/23/22 Ashli Ni, DO [address] [place] [address] PCP - [facility] 01/20/24 Tombstone Carver Relationship Specialty Start Date End Date Ashli Ni, DO [address] [place] [address] PCP - General Family [facility] 10/23/22 Ashli Ni, DO [address] [place] [address] PCP - [facility] 01/20/24 Tombstone Carver Relationship Specialty Start Date End Date Ashli Ni Jr. DO [address] [place] [address] PCP - General Family Medicine 08/09/21 Chantal Lewis MD [address] [place] [address] Referring Urology 08/09/21 Cathi Faulkner LSW C[employer] Grinding [employer] Operator 06/28/23 Goals (unrecognized section and content) Goals may [...] BE BASED ON THE PRIMARY CLINICAL RECORDS. [facility]. provides no warranty or guarantee of the accuracy or completeness of information in this document.
--- NOTE | 2024-09-20 11:39 | ED.GENADUL1 ---
HPI HPI - General Adult General Chief complaint: Skin/Abscess/Foreign Body Stated complaint: POSSIBLE INFECTION ON CHEST Time Seen by Provider: 09/20/24 11:23 Source: patient Mode of arrival: walk-in Limitations: no limitations History of Present Illness HPI narrative: The patient noted that he had this area of redness in his chest wall last week, he has been applying warm compression and he said that he feels that is more painful now, the patient denies any other complaint He also denies any injuries or trauma Patient denies any fever Related Data Home Medications ?Medication ?Instructions ?Recorded ?Confirmed lisinopril 20 2 tab PO DAILY 03/24/24 05/12/24 mg-hydrochlorothiazide 12.5 mg tablet nabumetone 750 mg tablet 750 mg PO BID 03/24/24 05/12/24 fLOMAX 0.4 mg PO DAILY 05/12/24 05/12/24 trazodone 50 mg tablet 50 mg PO PRN insomnia 05/12/24 Previous Rx's ?Medication ?Instructions ?Recorded doxycycline hyclate 100 mg capsule 100 mg PO BID 7 days #14 caps 09/20/24 Allergies Allergy/AdvReac Type Severity Reaction Status Date / Time shellfish derived Allergy Severe Anaphylaxis Verified 05/12/24 00:26 Penicillins AdvReac Mild Unknown Verified 05/12/24 00:26 Opioid HPI Opioid Management Most Recent Opioid Data: Last Pain Scale 0 03/24/24 23:44 03/24/24 Review of Systems ROS Status of ROS 10 or more systems reviewed and unremarkable except as noted in history and below PFSH PFSH Social History Little interest or pleasure in doing things: not at all Feeling down, depressed, or hopeless: not at all Exam Narrative Exam Narrative: Nurses notes and vital signs reviewed and patient is not hypoxic. General: Well-appearing and in no apparent distress. Skin examination: The patient at the anterior of the chest wall mostly in the left side the patient have an area of 2 x 3 cm oval in shape redness with a possible area of folliculitis in the middle, it is a very hairy area, no fluctuation and no surrounding induration No rash. Head: Normocephalic, atraumatic. Neck: Supple, non-tender. Neurological: A&O x4. No cranial nerve dysfunction observed. No truncal ataxia. Psychiatric: Cooperative and interactive. Normal mood and affect. Constitutional Vital Signs, click to edit/add: Last Vital Signs Temp 97.8 F 09/20/24 11:17 Pulse 71 09/20/24 11:17 Resp 16 09/20/24 11:17 BP 176/107 H 09/20/24 11:17 Pulse Ox 96 09/20/24 11:17 O2 Del Method Room Air 09/20/24 11:17 Course Vital Signs Vital signs: Vital Signs Temperature 97.8 F 09/20/24 11:17 Pulse Rate 71 09/20/24 11:17 Respiratory Rate 16 09/20/24 11:17 Blood Pressure 176/107 H 09/20/24 11:17 Pulse Oximetry 96 09/20/24 11:17 Oxygen Delivery Method Room Air 09/20/24 11:17 Temperature 97.8 F 09/20/24 11:17 Pulse Rate 71 09/20/24 11:17 Respiratory Rate 16 09/20/24 11:17 Blood Pressure 176/107 H 09/20/24 11:17 Pulse Oximetry 96 09/20/24 11:17 Oxygen Delivery Method Room Air 09/20/24 11:17 Medical Decision Making [facility] Narrative Medical decision making narrative: The patient presented to us with folliculitis versus small cellulitis Right now there is no fluctuation and there is no need for any drainage the patient was started on doxycycline and had the area marked he was instructed to come back in case of any increase in the redness behind the marking Also he is to come back to the ER in case of fever or increasing pain The patient is to follow up with primary care physician in next 2-3 days or to return to the emergency department should any of the signs or symptoms worsen or new symptoms develop. The patient agrees with the following Diagnosis and Treatment plan and the patient will be discharged home. Discharge Plan Discharge Chief Complaint: Skin/Abscess/Foreign Body Clinical Impression: Folliculitis, Cellulitis Patient Disposition: Home, Self-Care Time of Disposition Decision: 11:40 Condition: Good Prescriptions / Home Meds: New doxycycline hyclate 100 mg capsule 100 mg PO BID 7 Days Qty: 14 0RF No Action nabumetone 750 mg tablet 750 mg PO BID lisinopril-hydrochlorothiazide 20-12.5 mg tablet 2 tab PO DAILY fLOMAX 0.4 mg PO DAILY trazodone 50 mg tablet 50 mg PO PRN (Reason: insomnia) Print Language: Nepalese Instructions: Cellulitis (ED), Folliculitis (ED) Referrals: Dimitry CRABTREE [Primary Care Provider] - 1 week Discharge Date/Time: 09/20/24 11:55
[2024-09-20] MEDS: NAPROXEN 250 MG TABLET 500 MG PO (11:53)
[2024-09-20] MEDS: DOXYCYCLINE MONOHYDRATE 100 MG CAPSULE PO (11:53)
== END 2024-09-20 11:55 | disposition home or self-care (01) ==
PROVIDERS: Emergency Provider Emergency Medicine; PCP Family Medicine
DX: L73.9 Follicular disorder, unspecified (principal); L03.313 Cellulitis of chest wall
CPT/HCPCS: 99283